=== PATIENT | female | born 1995 | race Caucasian/White ===

== ENCOUNTER 2023-01-26 21:22 | Outpatient (OUT) | payer OTHER, SELFPAY | END 2023-01-26 21:23 | LOC: LAB 21:27 | PROVIDERS: PCP Physician Assistant; Visit Provider Physician Assistant | DX: Z34.93 Encounter for supervision of normal pregnancy, unspecified, third trimester (principal) | CPT/HCPCS: 87081 ==

== ENCOUNTER 2023-02-13 16:06 | Observation (INO) | payer OTHER, SELFPAY ==
[2023-02-13] VITALS (13 sets, daily range): BP systolic 103–134; BP diastolic 63–87; PULSE 72–89; RESP 20; TEMP 25.8–36.7
[2023-02-13 16:57] LABS: Hematocrit 33.3 % (36.0-48.0); Hemoglobin 11.1 g/dL (12.0-16.0); Mean Corpuscular HGB Conc 33.3 g/dL (29.9-35.2); Mean Corpuscular Hemoglobin 28.1 pg (26.7-34.0); Mean Corpuscular Volume 84.3 fL (81.0-99.0); Mean Platelet Volume 12.3 fL (9.5-13.5); Platelet Count 208 10^3/uL (150-450); Red Blood Count 3.95 10^6/uL (4.20-5.40); Red Cell Distribution Width 13.2 % (11.0-15.0); White Blood Count 11.1 10^3/uL (4.0-11.0)
[2023-02-13 17:12] LABS: Amphetamine Screen Urine NEGATIVE (NEGATIVE); Barbiturates Screen Urine NEGATIVE (NEGATIVE); Benzodiazepines Screen Urine NEGATIVE (NEGATIVE); Buprenorphine Screen Urine NEGATIVE (NEGATIVE); Cannabinoid Screen Urine NEGATIVE (NEGATIVE); Cocaine Screen Urine NEGATIVE (NEGATIVE); Methadone Screen Urine NEGATIVE (NEGATIVE); Methamphetamines Screen Urine NEGATIVE (NEGATIVE); Opiate Screen Urine NEGATIVE (NEGATIVE); Oxycodone Screen Urine NEGATIVE (NEGATIVE); Phencyclidine Screen Urine NEGATIVE (NEGATIVE); Tricyclic Antidepressant Urine NEGATIVE (NEGATIVE)
[2023-02-13] MEDS: DINOPROSTONE 10 MG VAG INSERT.ER VAGINAL (18:37)
--- NOTE | 2023-02-13 19:39 | W.PC.ACHO ---
Registration Status: ADM IN Primary Language: Preferred Language: Report given to Henry CASEY at 1920 Active Medications Generic Name Dose Route Start Last Admin Trade Name Radha PRN Reason Stop Dose Admin Carboprost Tromethamine 250 mcg 02/13/23 16:23 Carboprost Tromethamine 250 Mcg/Ml 1 Ml Vial IM Q15M PRN Bleeding Sodium Chloride 1,000 mls @ 125 mls/hr 02/13/23 16:30 Sodium Chloride 0.9% 1,000 Ml IV .Q8H YURY Oxytocin 10 unit/ Sodium 501 mls @ 6.012 mls/hr 02/13/23 16:30 Chloride IV Q24H YURY 2 MILLIUNIT/MIN Lidocaine 5 ml 02/13/23 16:23 Lidocaine Viscous 2% 15 Ml Topical Solution TOPICAL DIRECTED PRN Pain Lidocaine 1 ml 02/13/23 16:23 Lidocaine Hcl 1% 200 Mg/20 Ml Mdv INJ DIRECTED PRN Pain Methylergonovine Maleate 0.2 mg 02/13/23 16:23 Methylergonovine Maleate 0.2 Mg Tablet PO Q4H PRN Uterine Contractility/Contract Methylergonovine Maleate 0.2 mg 02/13/23 16:23 Methylergonovine Maleate 0.2 Mg/Ml Ampule IM ONCE PRN Uterine Contractility/Contract Misoprostol 600 mcg 02/13/23 16:23 Misoprostol 100 Mcg Tablet PO ONCE PRN Uterine Bleeding Misoprostol 800 mcg 02/13/23 16:23 Misoprostol 100 Mcg Tablet SL ONCE PRN Uterine Bleeding Misoprostol 1,000 mcg 02/13/23 16:23 Misoprostol 100 Mcg Tablet MS ONCE PRN Uterine Bleeding Nalbuphine HCl 10 mg 02/13/23 16:23 Nalbuphine Hcl 10 Mg/Ml Ampule IV Q3H PRN Pain Ondansetron HCl 4 mg 02/13/23 16:23 Ondansetron Pf 4 Mg/2 Ml Vial IV Q6H PRN Nausea And Vomiting Ondansetron HCl 4 mg 02/13/23 16:23 Ondansetron 4 Mg Rapdis Tablet SL Q6H PRN Nausea And Vomiting Oxytocin 10 unit 02/13/23 16:23 Oxytocin 100 Unit/10 Ml Vial IM ONCE PRN Uterine Bleeding Zolpidem Tartrate 10 mg 02/13/23 17:41 Zolpidem Tartrate 10 Mg Tablet PO BEDTIME PRN Anxiety Diet Category Date Time Status Regular Consistency Diet Diet 02/13/23 Dinner Active Regular Consistency Diet Diet 02/14/23 Breakfast Active IV Insertion/Site Date of IV Line Insertion [20g 02/13/23 right Hand] IV Insertion Time [20g right 17:15 Hand]
--- NOTE | 2023-02-14 12:35 | P.DS_ITS ---
DS: Providers Provider Date of admission: 02/13/23 16:06 Primary care physician: CHANNING ELAINE Admitting clinician: Sukhwinder Garcia Attending physician on admission: Sukhwinder Garcia Attending physician on discharge: Sukhwinder Garcia Discharging clinician: Sukhwinder Garcia Anticipated date of discharge: 02/13/23 DS: Diagnosis Discharge Diagnosis (1) Third trimester : Plan Patient was scheduled for elective IOL and decided to not stay for induction and be discharged to home and wait for spontaneous labor. OB - DS: Summary Time Spent with Patient Time attestation: Total time spent providing and/or coordinating discharge services: Time spent: less than 30 minutes Exam Constitutional Vital Signs - 24 hr 02/13/23 16:57 02/13/23 18:59 02/13/23 19:14 Temperature Pulse Rate 81 78 81 Pulse Rate [Right Radial] Respiratory Rate Blood Pressure 118/63 116/71 103/67 Oxygen Delivery Method 02/13/23 19:36 02/13/23 19:40 02/13/23 19:44 Temperature Pulse Rate 80 85 85 Pulse Rate [Right Radial] Respiratory Rate Blood Pressure 132/72 H 131/75 H 134/83 H Oxygen Delivery Method 02/13/23 19:51 02/13/23 19:51 02/13/23 19:59 Temperature 78.4 F L 96.1 F L Pulse Rate 75 Pulse Rate [Right Radial] Respiratory Rate Blood Pressure 121/76 H Oxygen Delivery Method 02/13/23 20:15 02/13/23 20:30 02/13/23 22:21 Temperature Pulse Rate 72 72 81 Pulse Rate [Right Radial] Respiratory Rate Blood Pressure 116/75 126/69 H 129/87 H Oxygen Delivery Method 02/13/23 19:53 02/13/23 20:29 Temperature 98.1 F Pulse Rate Pulse Rate [Right Radial] 89 Respiratory Rate 20 Blood Pressure Oxygen Delivery Method Room Air Room Air DS: Data Data Completed and Pending Labs on day of discharge: Labs from last 24 hours 02/13/23 02/13/23 16:51 16:30 WBC 11.1 H RBC 3.95 L Hgb 11.1 L Hct 33.3 L MCV 84.3 MCH 28.1 MCHC 33.3 RDW 13.2 Plt Count 208 MPV 12.3 Urine Opiates Screen Negative Ur Buprenorphine Scrn Negative Ur Oxycodone Screen Negative Urine Methadone Screen Negative Ur Propoxyphene Screen Negative Ur Barbiturates Screen Negative U Tricyclic Antidepress Negative Ur Phencyclidine Scrn Negative Ur Amphetamines Screen Negative U Methamphetamines Scrn Negative U Benzodiazepines Scrn Negative Urine Cocaine Screen Negative U Cannabinoids Screen Negative Blood Type A Positive Antibody Screen Negative Discharge Plan Discharge Disposition: Home, Self-Care Condition: Good Assessment: Patient assessment WNL. Plan of Treatment: Patient to return to [facility] on 02/17 at 1600 for NST/BPP d/t postdates. Patient to call office of Dr. Garcia to schedule follow-up for Thursday 02/22. Discharge Medications: No Action No Known Home Medications Activity: resume usual activities as tolerated Diet: regular diet Print Language: Setswana Forms: Portal Instructions Follow Up Appointments: Patient to call 02/17 to schedule follow-up for 02/22 Discharge location: Home self-care
== END 2023-02-13 22:35 | disposition home or self-care (01) ==
PROVIDERS: Admitting Provider Obstetrics & Gynecology; PCP Nurse Practitioner Family; Visit Provider Obstetrics & Gynecology
DX: Z34.93 Encounter for supervision of normal pregnancy, unspecified, third trimester (principal); Z3A.00 Weeks of gestation of pregnancy not specified
CPT/HCPCS: 36415; 80307; 85027; 86850; 86900; 86901; G0378; G0379

== ENCOUNTER 2023-02-24 04:47 | Inpatient (IN) | payer OTHER, SELFPAY ==
[2023-02-24] VITALS (40 sets, daily range): BP systolic 110–145; BP diastolic 56–88; PULSE 59–91; RESP 20; TEMP 36.7–37
[2023-02-24 05:30] LABS: Hematocrit 34.6 % (36.0-48.0); Hemoglobin 11.4 g/dL (12.0-16.0); Mean Corpuscular HGB Conc 32.9 g/dL (29.9-35.2); Mean Corpuscular Hemoglobin 27.6 pg (26.7-34.0); Mean Corpuscular Volume 83.8 fL (81.0-99.0); Mean Platelet Volume 12.2 fL (9.5-13.5); Platelet Count 182 10^3/uL (150-450); Red Blood Count 4.13 10^6/uL (4.20-5.40); Red Cell Distribution Width 13.2 % (11.0-15.0); White Blood Count 11.1 10^3/uL (4.0-11.0)
[2023-02-24 05:59] LABS: Amphetamine Screen Urine NEGATIVE (NEGATIVE); Barbiturates Screen Urine NEGATIVE (NEGATIVE); Benzodiazepines Screen Urine NEGATIVE (NEGATIVE); Cannabinoid Screen Urine NEGATIVE (NEGATIVE); Cocaine Screen Urine NEGATIVE (NEGATIVE); Methadone Screen Urine NEGATIVE (NEGATIVE); Methamphetamines Screen Urine NEGATIVE (NEGATIVE); Opiate Screen Urine NEGATIVE (NEGATIVE); Oxycodone Screen Urine NEGATIVE (NEGATIVE); Phencyclidine Screen Urine NEGATIVE (NEGATIVE); Tricyclic Antidepressant Urine NEGATIVE (NEGATIVE)
[2023-02-24 06:00] LABS: Buprenorphine Screen Urine NEGATIVE (NEGATIVE)
[2023-02-24] MEDS: 0.9 % SODIUM CHLORIDE 1,000 ML 1000 ML IV (06:32)
[2023-02-24] MEDS: OXYTOCIN 10 UNIT in 0.9 % SODIUM CHLORIDE 500 ML 6.012 UNIT IV (06:45)
[2023-02-24] MEDS: ROPIVACAINE HCL/PF 400 MG/200 ML PREMIX 6 MG EPIDURAL (11:31)
[2023-02-24] MEDS: 0.9 % SODIUM CHLORIDE 1,000 ML 125 ML IV (11:32)
[2023-02-24] MEDS: FENTANYL CITRATE/PF 100 MCG/2 ML VIAL EPIDURAL (13:26)
--- NOTE | 2023-02-24 13:55 | PM.OBPRCVD ---
Procedure Intrapartal events: None Induction method: per pitocin protocol Delivery augmentation: rupture of membranes and pitocin Delivery monitor: external FHT and external uterine Route of delivery: Episiotomy Description: none Laceration description: none Estimated blood loss (mL): 200 Anesthesia type: None Disposition: floor Infant Delivery date: 02/24/23 Gender: male presentation: vertex Placental delivery description: Spontaneous cord description: 3 Vessels and Clamped/Cut Labor State Duration Total Length of Latency: 3 hours and 52 minutes
[2023-02-24] MEDS: IBUPROFEN 600 MG TABLET PO (14:43)
--- NOTE | 2023-02-24 19:13 | W.PC.ACHO ---
Registration Status: ADM IN Primary Language: Angolan Preferred Language: Angolan Report given to Sangeetha Macias RN. Care relinquished. Active Medications Generic Name Dose Route Start Last Admin Trade Name Radha PRN Reason Stop Dose Admin Acetaminophen 650 mg 02/24/23 13:51 Acetaminophen 325 Mg Tablet PO Q6H PRN Mild Pain Al Hydroxide/Mg Hydroxide 2,400 mg 02/24/23 13:51 Magnesium Hydroxide 2,400 Mg/10 Ml Oral.Susp PO Q6H PRN Dyspepsia Benzocaine/Menthol 1 applic 02/24/23 14:00 Benzocaine/Menthol 85 Gram Bottle TOPICAL ONCE PRN Pain Carboprost Tromethamine 250 mcg 02/24/23 04:50 Carboprost Tromethamine 250 Mcg/Ml 1 Ml Vial IM 02/25/23 14:00 Q15M PRN Bleeding Docusate Sodium 100 mg 02/25/23 09:00 Docusate Sodium 100 Mg Capsule PO BID YURY Sodium Chloride 1,000 mls @ 125 mls/hr 02/24/23 05:00 02/24/23 11:32 Sodium Chloride 0.9% 1,000 Ml IV 125 mls/hr .Q8H YURY Administration Ropivacaine/Sodium Chloride 400 mg in 200 mls @ 6 mls/hr 02/24/23 07:15 02/24/23 11:31 Naropin 0.2% 400 Mg/200 Ml Bag EPIDURAL 6 mls/hr Q24H YURY 6 mls/hr Administration Oxytocin 20 unit/ Sodium 1,002 mls @ 125 mls/hr 02/24/23 14:00 Chloride IV 02/24/23 21:59 Q8H YURY Ibuprofen 600 mg 02/24/23 13:51 02/24/23 14:43 Ibuprofen 600 Mg Tablet PO 600 mg Q6H PRN Administration Moderate Pain Lidocaine 5 ml 02/24/23 07:13 Lidocaine Hcl 2% Pf 100 Mg/5 Ml Vial INJ Q1H PRN Pain Methylergonovine Maleate 0.2 mg 02/24/23 04:50 Methylergonovine Maleate 0.2 Mg Tablet PO 02/25/23 14:00 Q4H PRN Uterine Contractility/Contract Methylergonovine Maleate 0.2 mg 02/24/23 04:50 Methylergonovine Maleate 0.2 Mg/Ml Ampule IM 02/25/23 14:00 ONCE PRN Uterine Contractility/Contract Misoprostol 600 mcg 02/24/23 04:50 Misoprostol 100 Mcg Tablet PO ONCE PRN Uterine Bleeding Misoprostol 800 mcg 02/24/23 04:50 Misoprostol 100 Mcg Tablet SL ONCE PRN Uterine Bleeding Misoprostol 1,000 mcg 02/24/23 04:50 Misoprostol 100 Mcg Tablet NH ONCE PRN Uterine Bleeding Naloxone HCl 0.4 mg 02/24/23 07:13 Naloxone Hcl 0.4 Mg/Ml Vial IV ONCE PRN Pain Ondansetron HCl 4 mg 02/24/23 04:50 Ondansetron Pf 4 Mg/2 Ml Vial IV Q6H PRN Nausea And Vomiting Ondansetron HCl 4 mg 02/24/23 04:50 Ondansetron 4 Mg Rapdis Tablet SL Q6H PRN Nausea And Vomiting Senna 17.2 mg 02/24/23 20:00 Sennosides 8.6 Mg Tablet PO QHS PRN Constipation Simethicone 80 mg 02/24/23 13:51 Simethicone 80 Mg Tab.Chew PO QID PRN Abdominal Distention Temazepam 15 mg 02/24/23 20:00 Temazepam 15 Mg Capsule PO BEDTIME PRN Sleep Witch Sonja/Glycerin 1 each 02/24/23 14:00 Glycerin/Witch Sonja 1 Each Jar TOPICAL ONCE PRN Pain Diet Category Date Time Status Regular Consistency Diet Diet 02/24/23 Dinner Active Consults Category Date Time Status Consult to Automotive Sales Executive Routine Cons 02/24/23 Ordered IV Insertion/Site Date of IV Line Insertion [20g 02/24/23 right Hand] IV Insertion Time [20g right 05:12 Hand] Neurology Patient orientation (short person,place,time,situation list) Mary coma scale total score 15 Respiratory Oxygen Delivery Method Room Air Oxygen Delivery Method Room Air Cardiology Heart Sounds Strong,Regular Bowels Date of Last Bowel Movement [ 02/24/23 All Quadrants] Date of Last Bowel Movement [ 02/24/23 All Quadrants] Date of Last Bowel Movement [ 02/24/23 All Quadrants] Date of Last Bowel Movement [ 02/24/23 All Quadrants] Date of Last Bowel Movement [ 02/24/23 All Quadrants] Date of Last Bowel Movement [ 02/24/23 All Quadrants] Date of Last Bowel Movement [ 02/24/23 All Quadrants] Date of Last Bowel Movement [ 02/24/23 All Quadrants] Renal Bladder Pattern Continent Catheter Date Urinary Catheter Removed 02/24/23 Date Urinary Catheter Removed 02/24/23
[2023-02-25 00:10] VITALS: BP 116/60; PULSE 75; RESP 18
[2023-02-25] MEDS: IBUPROFEN 600 MG TABLET PO (00:19)
[2023-02-25 05:59] LABS: Basophils Percent Auto 0.2 % (0.2-2.0); Eosinophils Absolute Auto 0.1 10^3/uL (0.0-0.7); Eosinophils Percent Auto 0.5 % (0.9-7.0); Hematocrit 30.3 % (36.0-48.0); Hemoglobin 9.8 g/dL (12.0-16.0); Immature Granulocytes Abs Auto 0.05 10^3/uL (0.00-0.03); Immature Granulocytes Pct Auto 0.5 % (0.0-0.5); Lymphocytes Absolute Auto 2.4 10^3/uL (1.2-3.8); Lymphocytes Percent Auto 25.2 % (20.5-60.0); Mean Corpuscular HGB Conc 32.3 g/dL (29.9-35.2); Mean Corpuscular Volume 86.6 fL (81.0-99.0); Mean Platelet Volume 11.9 fL (9.5-13.5); Monocytes Absolute Auto 0.7 10^3/uL (0.3-0.8); Monocytes Percent Auto 7.6 % (1.7-12.0); Neutrophils Absolute Auto 6.4 10^3/uL (1.4-6.5); Platelet Count 185 10^3/uL (150-450); Red Cell Distribution Width 13.4 % (11.0-15.0); White Blood Count 9.7 10^3/uL (4.0-11.0)
[2023-02-25 07:50] VITALS: BP 118/69; PULSE 64; RESP 16; TEMP 36.7
--- NOTE | 2023-02-25 09:01 | P.OBPN_ITS ---
OB - PN: Subj Subjective Patient comments: no complaints [place] status: doing well Exam Constitutional Vital Signs, click to edit/add: Last Vital Signs Temp 98.0 F 02/24/23 11:34 Pulse 64 02/25/23 07:50 Resp 18 02/25/23 00:10 BP 118/69 02/25/23 07:50 O2 Del Method Room Air 02/25/23 00:10 Documenting provider has reviewed patient's vital signs: yes Common normals: no apparent distress Respiratory Common normals: normal respiratory effort and clear to auscultation bilaterally Cardio Common normals: regular rate and regular rhythm GI Common normals: Normal to inspection, nondistended, normoactive bowel sounds present Extremity Common normals: no clubbing, cyanosis or edema and no calf tenderness Results Labs Labs: Short CBC 02/25/23 Range/Units 05:43 WBC 9.7 (4.0-11.0) 10^3/uL Hgb 9.8 L (12.0-16.0) g/dL Hct 30.3 L (36.0-48.0) % Plt Count 185 (150-450) 10^3/uL OB - PN: A/P Plan - Vaginal Delivery day: 1 Plan: routine care, discharge home and follow up 6 weeks Time Spent with Patient Time: Total time spent is greater than 50% in coordination of care (as documented) at patient's floor/unit and/or counseling patient: Total time spent with greater than 50% in coordination of care (as documented) at patient's floor/unit and/or counseling patient: less than 15 minutes
--- NOTE | 2023-02-25 16:07 | SWNOTE1 ---
SW was consulted due to mental health, SW spoke with nursing and pt does struggle with severe anxiety. SW met with pt to discuss any needs. Pt does have 2 other children who are 4 & 5. Pt also has her ex-fiance living in the home as well. She does voice it is a good relationship and they co-parent well together. Pt is not sure who the father is. It is between her ex and another person. She did inquire about paternity testing, SW recommended health dept. Pt is also looking into other options. Pt did voice she has other support, not many but the people who are her support, she does feel they are good support. Pt did talk about having anxiety. She voiced she does not take anything out on her kids and it is all related to herself. She did try meds one time but did not like the effect. Pt is self aware and stated she learned several coping skills from counseling. Pt goes to [facility] counseling in [place], she has not been in 6 months, but does plan on making an appointment soon. Pt does have everything she needs at home for baby; crib, car seat, clothing, etc. At this time pt does not voice any concerns and does not feel she needs any other resources.
== END 2023-02-25 16:30 | disposition home or self-care (01) | DRG 560 ==
PROVIDERS: Admitting Provider Obstetrics & Gynecology; PCP Nurse Practitioner Family; Visit Provider Obstetrics & Gynecology
DX: O48.0 Post-term pregnancy (principal); Z3A.41 41 weeks gestation of pregnancy; O99.344 Other mental disorders complicating childbirth; F41.0 Panic disorder [episodic paroxysmal anxiety]; Z37.0 Single live birth; O26.843 Uterine size-date discrepancy, third trimester; Z82.49 Family history of ischemic heart disease and other diseases of the circulatory system; Z83.3 Family history of diabetes mellitus; Z80.9 Family history of malignant neoplasm, unspecified
CPT/HCPCS: 36415; 59050; 59410; 80307; 85025; 85027; 86850; 86900; 86901; 96374; 96376

== ENCOUNTER 2023-02-26 15:55 | Emergency (ER) | payer OTHER, SELFPAY ==
[2023-02-26 16:40] VITALS: BP 142/90; PULSE 85; RESP 20; TEMP 36.7; BMI 39.4
--- NOTE | 2023-02-26 17:38 | ED_ITS ---
HPI - General Adult General Chief complaint: Headache Stated complaint: HEADACHE Time Seen by Provider: 02/26/23 17:38 Source: family Mode of arrival: walk-in Limitations: no limitations History of Present Illness HPI narrative: Patient presents to emergency department complaining of a headache. Patient states she is status post 2 days vaginal delivery at 41 weeks. The patient is patient of Dr. Garcia. She is having to cephalgia and scotoma. She states she's had scotoma before she even had a headache that she's had it before. She denies any trauma. She took her blood pressure and it was 140 so she called the labor and delivery and was told to come to the emergency department. Patient denies any preeclampsia with this but she did have hypertension with her 1st child. She is . She states she has some nausea she has not taking anything at home for pain. She does not like taking pain medication. She states she has her normal vaginal bleeding from the delivery denies any fever, or chills. She denies any abdominal pain or cramping. She denies any flank pain, hematuria, dysuria. She denies any diarrhea, constipation. She denies any difficulty with speech, paresthesias, or focal weakness. She denies any chest pain, or shortness of breath. Anxiety and is feeling anxious. Related Data Home Medications Medication Instructions Recorded Confirmed No Known Home Medications 02/13/23 02/25/23 Allergies Allergy/AdvReac Type Severity Reaction Status Date / Time escitalopram [From Lexapro] Allergy Intermediate Anxiety Verified 02/13/23 17:46 Review of Systems ROS Status of ROS 10 or more systems reviewed and unremarkable except as noted in history and below [facility] Medical History (Updated 02/26/23 @ 19:21 by Deepthi Presley MD) Family History (Updated 02/24/23 @ 05:44 by Marcia Packer RN) Mother Family history of diabetes mellitus Family history of hypertension Sister Family history of cancer Social History Smoking status: Never smoker Exam Narrative Exam Narrative: Nurses notes and vital signs reviewed and patient is not hypoxic. General: Nontoxic, Well-appearing and in no apparent distress. Skin: Warm, dry, no pallor noted. No Rash Head: Normocephalic, atraumatic. Neck: Supple, non-tender. Eye: Pupils are equal, round and EOMI. No scleral icterus. Ears, Nose, Mouth, and Throat: TM clear, no posterior oropharynx erythema or nasal mucosal hypertrophy, uvula is mid-line Oral mucosa is moist Cardiovascular: Regular Rate and Rhythm without murmur, gallop or rub. Respiratory: No accessory muscle use or respiratory distress. Lungs are clear to auscultation, no wheezing, rales or rhonchi Chest Wall: no tenderness Back: No midline thoracic or lumbar vertebral tenderness. No CVA tenderness Musculoskeletal: normal ROM, no calf or popliteal tenderness, no lower extremity edema/swelling GI: Abdomen is soft, non-distended. Normal bowel sounds. No masses appreciated. No tenderness to palpation. No rebound, guarding, or rigidity noted. Neurological: A&O x4. No cranial nerve dysfunction observed. No truncal ataxia. Moves all extremities. Sensation intact. Psychiatric: Cooperative and interactive.anxious Constitutional Vital Signs, click to edit/add: Last Vital Signs Temp 98.1 F 02/26/23 16:40 Pulse 81 02/26/23 18:28 Resp 26 H 02/26/23 18:28 BP 122/78 H 02/26/23 18:34 O2 Del Method Room Air 02/26/23 18:34 Course Vital Signs Vital signs: Vital Signs Temperature 98.1 F 02/26/23 16:40 Pulse Rate 85 02/26/23 16:40 Respiratory Rate 20 02/26/23 16:40 Blood Pressure 142/90 H 02/26/23 16:40 Temperature 98.1 F 02/26/23 16:40 Pulse Rate 81 02/26/23 18:28 Respiratory Rate 26 H 02/26/23 18:28 Blood Pressure 122/78 H 02/26/23 18:34 Oxygen Delivery Method Room Air 02/26/23 18:34 Medical Decision Making MDM Narrative Medical decision making narrative: IV was established. The patient's blood pressure is 142/90. Patient does not have any focal neurologic deficit. CT scan of the brain was done. Beta ramiro was ordered however the patient was given IV fluids she did not like take Toradol or any IV medications initially she did agree to finally get 4 to to see if that would help with her cephalgia and left pressure. Patient's blood pressure improved to 122/78. Her headache has improved. While awaiting blood work. Evaluation, disposition. Patient's headache improved dramatically with Toradol and IV fluids. She states she has Tylenol and Motrin at home and she would like to take. She declined any Tylenol in the emergency department. The patient had a CT scan of the brain which was unremarkable. Her blood pressure improved without any antihypertensives. Patient was discussed with Dr. Brewer regional sales coordinator for [employer] who advised the patient to be discharged and follow up with primary care doctor Dr. Garcia tomorrow. If she develops any more headaches which did not resolve with Tylenol and Motrin she is to return to the emergency department. At this time the patient is without objective evidence of an acute process requiring hospitalization or inpatient management. The patient has remained hemodynamically stable. No additional indication for emergent studies at this time. I answered all questions. Discussed discharge instructions including standard anticipatory guidance and what should prompt a return to the emergency department, including if they get worse are not getting better or develops any new or concerning symptoms. I've given them specific time frame in which to follow-up, and who to follow-up with. The patient demonstrates understanding. Patient is nontoxic and stable for discharge with outpatient follow-up. This note was created with the assistance of a speech recognition program. Although the intention is to generate documents that actually reflects the content of the visit, no guarantees can be provided that every mistake has been identified and corrected by editing. Medical Records Medical records reviewed: Yes I reviewed the patient's medical records Lab Data Lab results reviewed: Yes I reviewed the patient's lab results Labs: Lab Results 02/26/23 Range/Units 17:50 WBC 11.6 H (4.0-11.0) 10^3/uL RBC 4.10 L (4.20-5.40) 10^6/uL Hgb 11.4 L (12.0-16.0) g/dL Hct 35.0 L (36.0-48.0) % MCV 85.4 (81.0-99.0) fL MCH 27.8 (26.7-34.0) pg MCHC 32.6 (29.9-35.2) g/dL RDW 13.2 (11.0-15.0) % Plt Count 251 (150-450) 10^3/uL MPV 11.7 (9.5-13.5) fL Neut % (Auto) 76.1 H (43.0-75.0) % Lymph % (Auto) 15.4 L (20.5-60.0) % [place] % (Auto) 6.1 (1.7-12.0) % Eos % (Auto) 1.6 (0.9-7.0) % Baso % (Auto) 0.4 (0.2-2.0) % Neut # (Auto) 8.8 H (1.4-6.5) 10^3/uL Lymph # (Auto) 1.8 (1.2-3.8) 10^3/uL [place] # (Auto) 0.7 (0.3-0.8) 10^3/uL Eos # (Auto) 0.2 (0.0-0.7) 10^3/uL Baso # (Auto) 0.1 (0.0-0.1) 10^3/uL Abs Immat Gran (auto) 0.05 H (0.00-0.03) 10^3/uL Imm/Tot Granulo (auto) 0.4 (0.0-0.5) % Sodium 138 (136-145) mmol/L Potassium 3.6 (3.5-5.1) mmol/L Chloride 104 (98-107) mmol/L Carbon Dioxide 26.0 (21.0-32.0) mmol/L Anion Gap 11.6 BUN 9.0 (7.0-18.0) mg/dL Creatinine 0.73 (0.55-1.02) mg/dL Est GFR ( Amer) >60 (>=60) Est GFR (Non-Af Amer) >60 (>=60) BUN/Creatinine Ratio 12.3 Glucose 80 (74-106) mg/dL Lactate 0.7 (0.4-2.0) mmol/L Calcium 9.1 (8.5-10.1) mg/dL Total Bilirubin 0.2 (0.2-1.0) mg/dL AST 14 L (15-37) U/L ALT 16 (14-59) U/L Alkaline Phosphatase 129 H (46-116) U/L Total Protein 7.1 (6.4-8.2) g/dL Albumin 3.1 L (3.4-5.0) g/dL Globulin 4.0 g/dL Albumin/Globulin Ratio 0.8 Discharge Plan Discharge Chief Complaint: Headache Clinical Impression: Headache Patient Disposition: Home, Self-Care Time of Disposition Decision: 19:19 Condition: Good Mode of Transportation: Private Vehicle Prescriptions / Home Meds: No Action No Known Home Medications Instructions: Acute Headache (ED) Additional Instructions: Take Tylenol and Motrin as needed for pain. Follow-up with your primary care doctor and [employer] in the morning. Return to the emergency department with any problems or concerns as discussed. Stand Alone Forms: Portal Instructions Referrals: CHANNING ELAINE [Primary Care Provider] - 1 week
[2023-02-26 17:51] VITALS: BP 141/86; PULSE 81; RESP 30
--- NOTE | 2023-02-26 17:52 | ECG_ITS ---
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
[2023-02-26] MEDS: 0.9 % SODIUM CHLORIDE 1,000 ML 999 ML IV (17:55)
--- NOTE | 2023-02-26 18:08 | CT_ITS ---
The [address] [address] Patient Name: MICHAEL BRAXTON MRN: [facility]:[id number] date: 1995 Sex: F Assigned Patient Location: ER Current Patient Location: Accession/Order Number: [id number] Exam Date: 02/26/2023 18:02 Report Date: 02/26/2023 20:44 At the request of: MEERA PRESLEY Procedure: CT stroke head/brain wo con EXAMINATION: CT stroke head/brain wo con HISTORY: headache htn COMPARISON: No relevant comparison available. TECHNIQUE: Axial CT images were obtained without IV contrast. Dose reduction techniques were achieved by using automated exposure control and/or adjustment of mA and/or kV according to patient size and/or use of iterative reconstruction technique. FINDINGS: BRAIN: No edema, hemorrhage, mass, acute infarction, or inappropriate atrophy. CSF SPACES: No hydrocephalus, subarachnoid hemorrhage, or mass. Appropriate for age. SKULL: No fracture, mass, or other significant visible lesion. SINUSES: No significant mucosal thickening or fluid on the limited views. ORBITS: No appreciable abnormality on the limited views. OTHER: Negative CT/CT stroke head/brain wo con IMPRESSION: 1. Normal CT appearance of the brain. Preliminary findings were called to [place] in the emergency department at time of imaging to be relayed to Dr. Presley. Electronically authenticated by: CHARLIE DE LA O Date: 02/26/2023 20:44
[2023-02-26 18:19] LABS: Basophils Absolute Auto 0.1 10^3/uL (0.0-0.1); Basophils Percent Auto 0.4 % (0.2-2.0); Eosinophils Absolute Auto 0.2 10^3/uL (0.0-0.7); Eosinophils Percent Auto 1.6 % (0.9-7.0); Hemoglobin 11.4 g/dL (12.0-16.0); Immature Granulocytes Abs Auto 0.05 10^3/uL (0.00-0.03); Immature Granulocytes Pct Auto 0.4 % (0.0-0.5); Lymphocytes Absolute Auto 1.8 10^3/uL (1.2-3.8); Lymphocytes Percent Auto 15.4 % (20.5-60.0); Mean Corpuscular HGB Conc 32.6 g/dL (29.9-35.2); Mean Corpuscular Hemoglobin 27.8 pg (26.7-34.0); Mean Corpuscular Volume 85.4 fL (81.0-99.0); Mean Platelet Volume 11.7 fL (9.5-13.5); Monocytes Absolute Auto 0.7 10^3/uL (0.3-0.8); Monocytes Percent Auto 6.1 % (1.7-12.0); Neutrophils Absolute Auto 8.8 10^3/uL (1.4-6.5); Neutrophils Percent Auto 76.1 % (43.0-75.0); Platelet Count 251 10^3/uL (150-450); Red Cell Distribution Width 13.2 % (11.0-15.0); White Blood Count 11.6 10^3/uL (4.0-11.0)
[2023-02-26 18:28] VITALS: BP 150/104; PULSE 81; RESP 26
[2023-02-26] MEDS: KETOROLAC TROMETHAMINE 30 MG/ML VIAL IVP (18:32)
[2023-02-26 18:34] VITALS: BP 122/78; PULSE 86
[2023-02-26 18:39] LABS: Alanine Aminotransferase 16 U/L (14-59); Albumin Globulin Ratio 0.8; Albumin Level 3.1 g/dL (3.4-5.0); Alkaline Phosphatase 129 U/L (46-116); Anion Gap 11.6; Aspartate Amino Transferase 14 U/L (15-37); BUN Creatinine Ratio 12.3; Bilirubin Total 0.2 mg/dL (0.2-1.0); Calcium 9.1 mg/dL (8.5-10.1); Chloride 104 mmol/L (98-107); Estimated GFR (African America >60 (>=60); Estimated GFR (Non-African Ame >60 (>=60); Glucose 80 mg/dL (74-106); Potassium 3.6 mmol/L (3.5-5.1); Sodium 138 mmol/L (136-145); Total Protein 7.1 g/dL (6.4-8.2)
[2023-02-26 18:40] LABS: Lactate/Lactic Acid 0.7 mmol/L (0.4-2.0)
--- NOTE | 2023-02-26 18:41 | PC.NURSE ---
02/26/23 1840 pt manual bp obtained and updated dr esparza. Luigi Baig RN
--- NOTE | 2023-02-26 19:25 | ED_ITS ---
HPI - General Adult General Chief complaint: Headache Stated complaint: HEADACHE Time Seen by Provider: 02/26/23 17:38 Source: family Mode of arrival: walk-in Limitations: no limitations Related Data Home Medications Medication Instructions Recorded Confirmed No Known Home Medications 02/13/23 02/25/23 Allergies Allergy/AdvReac Type Severity Reaction Status Date / Time escitalopram [From Lexapro] Allergy Intermediate Anxiety Verified 02/13/23 17:46 Review of Systems ROS Status of ROS 10 or more systems reviewed and unremarkable except as noted in history and below [facility] Medical History (Updated 02/26/23 @ 19:21 by Deepthi Presley MD) Family History (Updated 02/24/23 @ 05:44 by Marcia Packer RN) Mother Family history of diabetes mellitus Family history of hypertension Sister Family history of cancer Social History Smoking status: Never smoker Exam Narrative Exam Narrative: Nurses notes and vital signs reviewed and patient is not hypoxic. General: Nontoxic, Well-appearing and in no apparent distress. Skin: Warm, dry, no pallor noted. No Rash Head: Normocephalic, atraumatic. Neck: Supple, non-tender. Eye: Pupils are equal, round and EOMI. No scleral icterus. Ears, Nose, Mouth, and Throat: TM clear, no posterior oropharynx erythema or nasal mucosal hypertrophy, uvula is mid-line Oral mucosa is moist Cardiovascular: Regular Rate and Rhythm without murmur, gallop or rub. Respiratory: No accessory muscle use or respiratory distress. Lungs are clear to auscultation, no wheezing, rales or rhonchi Chest Wall: no tenderness Back: No midline thoracic or lumbar vertebral tenderness. No CVA tenderness Musculoskeletal: normal ROM, no calf or popliteal tenderness, no lower extremity edema/swelling GI: Abdomen is soft, non-distended. Normal bowel sounds. No masses appreciated. No tenderness to palpation. No rebound, guarding, or rigidity noted. Neurological: A&O x4. No cranial nerve dysfunction observed. No truncal ataxia. Moves all extremities. Sensation intact. Psychiatric: Cooperative and interactive. Normal mood and affect. Constitutional Vital Signs, click to edit/add: Last Vital Signs Temp 98.1 F 02/26/23 16:40 Pulse 74 02/26/23 19:28 Resp 18 02/26/23 19:28 BP 138/78 H 02/26/23 19:28 Pulse Ox 98 02/26/23 19:28 O2 Del Method Room Air 02/26/23 19:28 Course Vital Signs Vital signs: Vital Signs Temperature 98.1 F 02/26/23 16:40 Pulse Rate 85 02/26/23 16:40 Respiratory Rate 20 02/26/23 16:40 Blood Pressure 142/90 H 02/26/23 16:40 Temperature 98.1 F 02/26/23 16:40 Pulse Rate 74 02/26/23 19:28 Respiratory Rate 18 02/26/23 19:28 Blood Pressure 138/78 H 02/26/23 19:28 Pulse Oximetry 98 02/26/23 19:28 Oxygen Delivery Method Room Air 02/26/23 19:28 Medical Decision Making Lab Data Labs: Lab Results 02/26/23 Range/Units 17:50 WBC 11.6 H (4.0-11.0) 10^3/uL RBC 4.10 L (4.20-5.40) 10^6/uL Hgb 11.4 L (12.0-16.0) g/dL Hct 35.0 L (36.0-48.0) % MCV 85.4 (81.0-99.0) fL MCH 27.8 (26.7-34.0) pg MCHC 32.6 (29.9-35.2) g/dL RDW 13.2 (11.0-15.0) % Plt Count 251 (150-450) 10^3/uL MPV 11.7 (9.5-13.5) fL Neut % (Auto) 76.1 H (43.0-75.0) % Lymph % (Auto) 15.4 L (20.5-60.0) % [place] % (Auto) 6.1 (1.7-12.0) % Eos % (Auto) 1.6 (0.9-7.0) % Baso % (Auto) 0.4 (0.2-2.0) % Neut # (Auto) 8.8 H (1.4-6.5) 10^3/uL Lymph # (Auto) 1.8 (1.2-3.8) 10^3/uL [place] # (Auto) 0.7 (0.3-0.8) 10^3/uL Eos # (Auto) 0.2 (0.0-0.7) 10^3/uL Baso # (Auto) 0.1 (0.0-0.1) 10^3/uL Abs Immat Gran (auto) 0.05 H (0.00-0.03) 10^3/uL Imm/Tot Granulo (auto) 0.4 (0.0-0.5) % Sodium 138 (136-145) mmol/L Potassium 3.6 (3.5-5.1) mmol/L Chloride 104 (98-107) mmol/L Carbon Dioxide 26.0 (21.0-32.0) mmol/L Anion Gap 11.6 BUN 9.0 (7.0-18.0) mg/dL Creatinine 0.73 (0.55-1.02) mg/dL Est GFR ( Amer) >60 (>=60) Est GFR (Non-Af Amer) >60 (>=60) BUN/Creatinine Ratio 12.3 Glucose 80 (74-106) mg/dL Lactate 0.7 (0.4-2.0) mmol/L Calcium 9.1 (8.5-10.1) mg/dL Total Bilirubin 0.2 (0.2-1.0) mg/dL AST 14 L (15-37) U/L ALT 16 (14-59) U/L Alkaline Phosphatase 129 H (46-116) U/L Total Protein 7.1 (6.4-8.2) g/dL Albumin 3.1 L (3.4-5.0) g/dL Globulin 4.0 g/dL Albumin/Globulin Ratio 0.8 Discharge Plan Discharge Chief Complaint: Headache Clinical Impression: Headache Patient Disposition: Home, Self-Care Time of Disposition Decision: 19:19 Condition: Good Mode of Transportation: Private Vehicle Prescriptions / Home Meds: No Action No Known Home Medications Instructions: Acute Headache (ED) Additional Instructions: Take Tylenol and Motrin as needed for pain. Follow-up with your primary care doctor and [facility] in the morning. Return to the emergency department with any problems or concerns as discussed. Stand Alone Forms: Portal Instructions Referrals: CHANNING ELAINE [Primary Care Provider] - 1 week Discharge Date/Time: 02/26/23 19:39
[2023-02-26 19:28] VITALS: BP 138/78; PULSE 74; RESP 18; O2SAT 98
== END 2023-02-26 19:39 | disposition home or self-care (01) ==
PROVIDERS: Emergency Provider Emergency Medicine; PCP Nurse Practitioner Family
DX: O90.9 Complication of the puerperium, unspecified (principal); R51.9 Headache, unspecified
CPT/HCPCS: 36415; 70450; 80053; 83605; 85025; 93005; 96374; 99285

== ENCOUNTER 2023-05-03 19:31 | Emergency (ER) | payer OTHER, SELFPAY ==
[2023-05-03 19:44] VITALS: BP 147/94; PULSE 80; RESP 18; TEMP 37.3; O2SAT 98; BMI 40.9
== END 2023-05-03 19:52 | disposition left against medical advice (07) ==
LOC: ER 19:52
PROVIDERS: Emergency Provider Emergency Medicine; PCP Nurse Practitioner Family
DX: Z53.21 Procedure and treatment not carried out due to patient leaving prior to being seen by health care provider (principal)

== ENCOUNTER 2023-11-15 17:57 | Emergency (ER) | payer OTHER, SELFPAY ==
[2023-11-15 18:00] VITALS: BP 154/94; PULSE 109; TEMP 37.8; O2SAT 97; BMI 42.9
[2023-11-15 18:13] VITALS: O2SAT 97
--- NOTE | 2023-11-15 18:19 | ED.URI1 ---
HPI - URI/Sore Throat General Chief Complaint: Upper Respiratory Infection Stated Complaint: Fever Swelling Throat Time Seen by Provider: 11/15/23 17:58 Source: patient Limitations: no limitations History of Present Illness HPI Narrative: Patient is a 28-year-old female who presents to the emergency department for multiple upper respiratory symptoms. She states for the last 2 weeks approximately she has had mild nasal congestion and cough. In the last 2 days she has developed low-grade fevers, swollen tonsils and sore throat. She is able to speak without difficulty. She is not concerned for . No medications taken prior to arrival. Related Data Previous Rx's ?Medication ?Instructions ?Recorded amoxicillin 500 mg capsule 500 mg PO TID 10 days #30 caps 11/15/23 [id number] 10 ml PO Q6H PRN cold symptoms 11/15/23 2 mg-30 mg-10 mg/5 mL oral syrup #200 mL (Bromfed DM) Allergies Allergy/AdvReac Type Severity Reaction Status Date / Time escitalopram [From Lexapro] Allergy Intermediate Anxiety Verified 05/03/23 19:48 Review of Systems ROS Constitutional Reports: fever; Denies: chills Ears, nose, mouth, and throat Reports: throat pain and nasal congestion Cardiovascular Denies: chest pain Respiratory Reports: cough; Denies: shortness of breath Gastrointestinal Denies: nausea or vomiting Musculoskeletal Denies: back pain Integumentary/Breast Denies: rash Neurological Denies: headache Hematologic/Lymphatic Denies: easy bruising or easy bleeding PFSH PFSH Medical History (Updated 11/15/23 @ 18:34 by MINOO Ley) Panic attacks ?F41.0 - Panic disorder [episodic paroxysmal anxiety] (ICD-10) Anxiety ?F41.9 - Anxiety disorder, unspecified (ICD-10) Surgical History (Updated 11/15/23 @ 18:10 by Jurgen Cano) No pertinent past surgical history ?Z78.9 - Other specified health status (ICD-10) Family History (Updated 02/24/23 @ 05:44 by Marcia Packer RN) Mother Family history of diabetes mellitus Family history of hypertension Sister Family history of cancer Social History Smoking status: Never smoker Exam Narrative Exam Narrative: Gen.: Awake, alert, in no distress Head: Normocephalic, atraumatic ENT: Moist mucous membranes, Uvula is midline with moderate tonsillar edema and occasional exudate. No trismus or drooling. Bilateral TMs are clear Respiratory: No respiratory distress, lungs clear bilaterally Cardio: Regular rate and rhythm Extremities: Moves extremities equally Psych: Normal mood and affect Neuro: No focal neuro deficit Skin: Warm, dry, intact Constitutional Vital Signs, click to edit/add: Last Vital Signs Temp 100.1 F 11/15/23 18:00 Pulse 109 H 11/15/23 18:00 Resp 18 11/15/23 18:00 BP 154/94 H 11/15/23 18:00 Pulse Ox 97 11/15/23 18:13 O2 Del Method Room Air 11/15/23 18:13 Course Vital Signs Vital signs: Vital Signs Temperature 100.1 F 11/15/23 18:00 Pulse Rate 109 H 11/15/23 18:00 Respiratory Rate 18 11/15/23 18:00 Blood Pressure 154/94 H 11/15/23 18:00 Pulse Oximetry 97 11/15/23 18:00 Oxygen Delivery Method Room Air 11/15/23 18:00 Temperature 100.1 F 11/15/23 18:00 Pulse Rate 109 H 11/15/23 18:00 Respiratory Rate 18 11/15/23 18:00 Blood Pressure 154/94 H 11/15/23 18:00 Pulse Oximetry 97 11/15/23 18:13 Oxygen Delivery Method Room Air 11/15/23 18:13 MDM - URI/Sore Throat MDM Narrative Medical decision making narrative: Screen is positive, patient is negative for influenza and COVID. Vital signs are stable in the ER. She was encouraged to continue Motrin and Tylenol. She declined Magic mouthwash as she does not want to take the Benadryl component. She was given Decadron in the ER with no difficulty. Airway is widely open and patent in the ER, she has no speech changes or evidence of airway compromise. She declined Bicillin injection and states she has done well with amoxicillin in the past. She was prescribed amoxicillin and Bromfed-DM for home. Follow-up with PCP and return to the ER if symptoms change or worsen Medical Records Attestation: I reviewed the patient's medical records. Lab Data Attestation: I reviewed the patient's lab results. Labs: Lab Results 11/15/23 Range/Units 18:05 Influenza Type A Ag Negative Influenza Type B Ag Negative SARS-CoV-2 Ag (CV2AG) Negative (NEGATIVE) Streptococcus Screen Positive A Discharge Plan Discharge Stand Alone Forms: Portal Instructions Chief Complaint: Upper Respiratory Infection Clinical Impression: Strep pharyngitis Patient Disposition: Home, Self-Care Time of Disposition Decision: 18:34 Condition: Good Prescriptions / Home Meds: New amoxicillin 500 mg capsule 500 mg PO TID 10 Days Qty: 30 0RF [id number] [Bromfed DM] 2-30-10 mg/5 mL syrup 10 ml PO Q6H PRN (Reason: cold symptoms) Qty: 200 0RF Print Language: German Instructions: Strep Throat (ED) Referrals: CHANNING ELAINE [Primary Care Provider] - 1 week
[2023-11-15 18:28] LABS: Influenza Virus A Antigen Negative; Influenza Virus B Antigen Negative; Internal Control Within Normal Limits; SARS-CoV-2 Ag NEGATIVE (NEGATIVE); Strep A Antigen Screen Positive
[2023-11-15] MEDS: DEXAMETHASONE SOD PHOS 10 MG/ML VIAL PO (18:38)
== END 2023-11-15 18:52 | disposition home or self-care (01) ==
PROVIDERS: Physician Assistant; Emergency Provider Emergency Medicine Emergency Medical Services; PCP Nurse Practitioner Family
DX: J02.0 Streptococcal pharyngitis (principal); Z20.822 Contact with and (suspected) exposure to COVID-19
CPT/HCPCS: 87804; 87811; 87880; 99285; J1100

== ENCOUNTER 2024-03-09 13:59 | Outpatient (OUT) | payer OTHER, SELFPAY ==
--- NOTE | 2024-03-09 14:01 | US_ITS ---
[address] [address] Patient Name: MICHAEL BRAXTON MRN: [id number] date: 1995 Sex: F Assigned Patient Location: [facility] Current Patient Location: [facility] Accession/Order Number: [id number] Exam Date: 03/09/2024 14:01 Report Date: 03/09/2024 15:19 At the request of: JONAS SMITH Procedure: US OB >= 14 weeks Fetus EXAMINATION: US OB >= 14 weeks Fetus HISTORY: MISSED MENSES COMPARISON: No relevant comparison available. TECHNIQUE: Transabdominal sonographic examination was performed for obstetrical and evaluation. FINDINGS: Number: 1 Heart Rate: 155 H.B. /min Amniotic Fluid Volume: Subjectively normal Placental Location: Anterior BIOMETRY: BPD: 3.2 cm, 16 weeks 0 days, 10% HC: 12.6 cm, 16 weeks 3 days, 12% AC: 10.8 cm, 16 weeks 5 days, 38% FL: 2.1 cm, 16 weeks 1 day, 15% EFW:155 g, 5 ounces, 13%; FL/AC: 19.1 FL/BPD: 64.4 HC/AC: 1.17 GESTATIONAL AGE: Age by EDC: 17 weeks 0 days NATALIA by EDC: 08/17/2024 Age by current US: 16 weeks 2 days NATALIA by current US: 08/22/2024 US/US OB >= 14 weeks Fetus IMPRESSION: Viable mejia intrauterine gestation measuring 16 weeks 2 days *Reference: [facility] Practice Guideline for the performance of Obstetric Ultrasound Examinations, May 16, 2007. Electronically authenticated by: PREM GUERRA Date: 03/09/2024 15:19
== END 2024-03-09 14:00 | disposition home or self-care (01) ==
LOC: NOMS 13:59
PROVIDERS: PCP Nurse Practitioner Family; Visit Provider Obstetrics & Gynecology
DX: Z34.92 Encounter for supervision of normal pregnancy, unspecified, second trimester (principal); Z3A.16 16 weeks gestation of pregnancy; N92.6 Irregular menstruation, unspecified
CPT/HCPCS: 76815

== ENCOUNTER 2024-04-11 08:48 | Outpatient (OUT) | payer OTHER, SELFPAY ==
[2024-04-11 09:12] LABS: Basophils Percent Auto 0.2 % (0.2-2.0); Eosinophils Absolute Auto 0.1 10^3/uL (0.0-0.7); Eosinophils Percent Auto 0.9 % (0.9-7.0); Hematocrit 33.8 % (36.0-48.0); Hemoglobin 11.3 g/dL (12.0-16.0); Immature Granulocytes Abs Auto 0.11 10^3/uL (0.00-0.03); Immature Granulocytes Pct Auto 0.8 % (0.0-0.5); Lymphocytes Absolute Auto 2.3 10^3/uL (1.2-3.8); Lymphocytes Percent Auto 17.5 % (20.5-60.0); Mean Corpuscular HGB Conc 33.4 g/dL (29.9-35.2); Mean Corpuscular Hemoglobin 27.2 pg (26.7-34.0); Mean Corpuscular Volume 81.3 fL (81.0-99.0); Mean Platelet Volume 10.7 fL (9.5-13.5); Monocytes Absolute Auto 0.7 10^3/uL (0.3-0.8); Monocytes Percent Auto 5.4 % (1.7-12.0); Neutrophils Percent Auto 75.2 % (43.0-75.0); Platelet Count 262 10^3/uL (150-450); Red Blood Count 4.16 10^6/uL (4.20-5.40); Red Cell Distribution Width 13.4 % (11.0-15.0); White Blood Count 13.3 10^3/uL (4.0-11.0)
[2024-04-11 10:12] LABS: Estimated Average Glucose 105 mg/dL; Glycohemoglobin A1C 5.3 % (4.5-6.2)
[2024-04-12 06:10] LABS: HBsAg Screen Negative (Negative); HCV Ab Non Reactive (Non Reactive); HIV Ab/p24 Ag Screen Non Reactive (Non Reactive); Rubella Antibodies, IgG 2.68 index (Immune >0.99)
[2024-04-12 13:09] LABS: Rapid Plasma Reagin, Quant Non Reactive titer (NonRea<1:1)
== END 2024-04-11 08:49 | disposition home or self-care (01) ==
LOC: LAB 08:49
PROVIDERS: PCP Nurse Practitioner Family; Visit Provider Obstetrics & Gynecology
DX: N92.6 Irregular menstruation, unspecified (principal); Z01.419 Encounter for gynecological examination (general) (routine) without abnormal findings
CPT/HCPCS: 36415; 83036; 85025; 86592; 86762; 86803; 86850; 86900; 86901; 87086; 87340; 87389; 88175

== ENCOUNTER 2024-04-11 19:29 | Outpatient (REF) | payer OTHER, SELFPAY ==
--- OUTSIDE RECORDS SUMMARY | 2024-04-11 19:46 | XMS_ITS | CCD ---
Author Organization [facility] Care Team Providers Care Pipe Buffer Name Role Phone Jonah King Unavailable Unavailable NONE, XXXX Unavailable Unavailable CHELE, CHANNING Admitting Unavailable CHELE, CHANNING Primary Care Unavailable CHELE, CHANNING Attending Unavailable TRINA, DR ANTONY Aguero Admitting Unavailable TRINA, DR ANTONY Aguero Attending Unavailable SPENCER ., JERSEY Consulting Unavailable CHELE, CHANNING Primary Care Unavailable DUSTY BUSCH Consulting Unavailable CHELE, CHANNING Primary Care Unavailable BONILLA QUICK Admitting Unavailable GRECHNY ., MINOO CASE Consulting Unavailabl e BONILLA QUICK Attending Unavailable CHELE, CHANNING Primary Care Unavailable MARKER ., DR JACKSON Attending Unavailable MARKER ., DR JACKSON Admitting Unavailable CHELE, CHANNING Primary Care Unavailable MARKER ., DR JACKSON Attending Unavailable MARKER ., DR JACKSON Admitting Unavailable MARKER ., DR JACKSON Consulting Unavailable CHELE, CHANNING Primary Care Unavailable YUE GUSTAFSON Admitting Unavailable ZIEBER, DR CHARLIE Aguero Consulting Unavailable YUE GUSTAFSON Attending Unavailable GRECHNY ., MINOO CASE Consulting Unavailabl e CHELE, CHANNING Primary Care Unavailable KENTRELL, DR WANDY Silva Consulting Unavailabl e KENTRELL, DR WANDY Silva Attending Unavailabl e REINPARVEEN, DR WANDY Silva Admitting Unavailabl e HAY ., DR DAI Attending Unavailable HAY ., DR DAI Admitting Unavailable CHELE, CHANNING Primary Care Unavailable MARI, DR PREM Sanchez Consulting Unavailable ZIEBJAIME, DR CHARLIE Aguero Consulting Unavailable HAY ., DR DAI Consulting Unavailable KARASIK ., DR SEAY Consulting Unavailabl e KARMARILIA ., DR SEAY Attending Unavailabl e KARASIK ., DR SEAY Admitting Unavailabl e CHELE, CHANNING Primary Care Unavailable ZIEBER, DR CHARLIE Aguero Consulting Unavailable LUIS ., DR MCDANIEL Admitting Unavailable CHELE, CHANNING Primary Care Unavailable LUIS ., DR MCDANIEL Attending Unavailable CHELE, [facility] Unavailable NURA, SWEETIE Admitting Unavailable NURASWEETIE Attending Unavailable KARASIK ., DR SEAY Consulting Unavailabl e KARASIK ., DR SEAY Attending Unavailabl e KARASIK ., DR SEAY Admitting Unavailabl e CHELE, [facility] Unavailable KARASIK ., DR SEAY Consulting Unavailabl e KARASIK ., DR SEAY Attending Unavailabl e KARASIK ., DR SEAY Admitting Unavailabl e CHELE, [facility] Unavailable KARASIK ., DR SEAY Attending Unavailabl e KARASIK ., DR SEAY Admitting Unavailabl e CHELE, [facility] Unavailable KARASIK ., DR SEAY Consulting Unavailabl e ZIEBJAIME, DR CHARLIE Aguero Consulting Unavailable CHELE, [facility] Unavailable REINECK, DR WANDY Silva Attending Unavailabl e KENTRELL, DR WANDY Silva Admitting Unavailabl e KENTRELL, DR WANDY Silva Consulting Unavailabl e LEAHY ., YOLANDA Consulting Unavailable Allergies Allergy Classification Reported Allergen(s) Allergy Type Date of Onset Reaction(s) Facility (2 sources) Escitalopram Drug Allergy 11-12-2021 [facility] Repository Problems Active Problems Problem Classification Problem Date Documented Date Episodic/Chronic Adjustment disorders (1 source) Reaction to severe stress, unspecified; Translations: [REACTION TO SEVERE STRESS UNS] Onset: 01-21-2022 Chronic Anxiety disorders (5 sources) Anxiety disorder, unspecified; Translations: [ANXIETY DISORDER UNSPECIFIED] Onset: 01-24-2022 Chronic Female infertility (4 sources) Female infertility associated with anovulation; Translations: [FE INFERTILITY ASSOC W/ANOVULATION] Onset: 12-02-2022 Chronic Immunizations and screening for infectious disease (1 source) Contact with and (suspected) exposure to infections with a predominantly sexual mode of transmission; Translations: [CONTCT W EXPOS INFECT SEXUAL TRNSMS] Onset: 11-21-2022 Episodic Other and delivery including normal (8 sources) Encounter for supervision of other normal , second trimester; Translations: [Encounter for test, result positive] Onset: 09-07-2022 Episodic Other screening for suspected conditions (not mental disorders or infectious disease) (5 sources) Encounter for screening for diabetes mellitus; Translations: [Encounter for other specified screening] Onset: 12-06-2022 Episodic Unclassified (1 source) COUGH, UNSPECIFIED; Translations: [COUGH, UNSPECIFIED] Onset: 12-26-2021 Past or Other Problems Problem Classification Problem Date Documented Date Episodic/Chronic Cardiac dysrhythmias (4 sources) Bradycardia, unspecified; Translations: [BRADYCARDIA UNSPECIFIED] Onset: 02-25-2022 Episodic Genitourinary symptoms and ill-defined conditions (4 sources) Dysuria; Translations: [DYSURIA] Onset: 06-06-2022 Episodic Other aftercare (1 source) Other ocean transportation intermediary (current) drug therapy; Translations: [OTH SENIOR LIVING CURRENT DRUG THERAPY] Onset: 01-26-2022 Episodic Other aftercare (1 source) longterm (current) use of anticoagulants; Translations: [SENIOR LIVING CURRNT USE ANTICOAGULANTS] Onset: 12-26-2021 Episodic Other connective tissue disease (4 sources) Pain in left lower leg; Translations: [PAIN IN LEFT LOWER LEG] Onset: 04-01-2022 Episodic Other female genital disorders (1 source) Other specified noninflammatory disorders of vagina; Translations: [OTH SPEC NONINFLAMMATORY D/O VAGINA] Onset: 06-09-2022 Episodic Other lower respiratory disease (3 sources) Shortness of breath; Translations: [SHORTNESS OF BREATH] Onset: 12-25-2021 Episodic Residual codes; unclassified (4 sources) Procedure and treatment not carried out due to patient leaving prior to being seen by health care provider; Translations: [PROC AND TX NOT CARRIED OUT PT LEAVE] Onset: 04-09-2022 Episodic Syncope (4 sources) Syncope and collapse; Translations: [SYNCOPE AND COLLAPSE] Onset: 01-30-2022 Episodic Thyroid disorders (1 source) Disorder of thyroid, unspecified; Translations: [DISORDER OF THYROID UNSPECIFIED] Onset: 01-26-2022 Episodic Results Test Name Value Interpretation Reference Range Facility GLUCOSE - 1HRon 12-10-2022 Glucose [Mass/Vol] 98 mg/dL Normal 74-106 [facility] Comment on above: Performed By: #### G LU1HR #### [facility] [address] [place] [address] Dr. Sara Matos HEMOGRAM AND PLATELon 2022 Hematocrit (Bld) [Volume fraction] 33.8 % Critically low 36.0-48.0 [facility] Comment on above: Performed By: #### T SH #### [facility] [address] [place] [address] Dr. Sara Matos Hemoglobin (Bld) [Mass/Vol] 11.1 g/dL Critically low 12.0-16.0 [facility] Comment on above: Performed By: #### T SH #### [facility] [address] [place] [address] Dr. Sara Matos MCH (RBC) [Entitic mass] 28.6 pg Normal 26.7-34.0 [facility] Comment on above: Performed By: #### T SH #### [facility] [address] [place] [address] Dr. Sara Matos MCHC (RBC) [Mass/Vol] 32.8 g/dL Normal 29.9-35.2 [facility] Comment on above: Performed By: #### T SH #### [facility] [address] [place] [address] Dr. Sara Matos MCV (RBC) [Entitic vol] 87.1 fL Normal 81.0-99.0 [facility] Comment on above: Performed By: #### T SH #### [facility] [address] [place] [address] Dr. Sara Matos PLT 188 103/ul Normal 150-450 [facility] Comment on above: Performed By: #### T SH #### [facility] [address] [place] [address] Dr. Sara Matos RBC 3.88 106/ul Critically low 4.20-5.40 [facility] Comment on above: Performed By: #### T SH #### [facility] [address] [place] [address] Dr. Sara Matos WBC 9.8 103/ul Normal 4.0-11.0 [facility] Comment on above: Performed By: #### T SH #### [facility] [address] [place] [address] Dr. Sara Matos US PREG ANATOMY SINGLEon US PREG ANATOMY SINGLE EXAMINATION: US PREG ANATOMY SINGLE HISTORY: anatomy study COMPARISON: Ultrasound dating 09/07/2022 TECHNIQUE: Transabdominal sonographic examination was performed for obstetrical and evaluation. FINDINGS: Number: 1 Heart Rate: 146.0 bpm H.B. /min Amniotic Fluid Volume: Subjectively normal Placental Location: Posterior without previa. Cervix Length: 5.0 cm, closed. ANATOMY: Normal Structures -cerebellum, choroid plexus, cisterna magna, lateral cerebral ventricles, orbits, midline falx, hard palate, four-chamber heart, RVOT, LVOT, stomach, kidneys, bladder, umbilical cord insertion into abdomen, three-vessel cord, cervical spine, thoracic spine, lumbar spine, sacral spine, right upper extremity, left upper extremity, right lower extremity, left lower extremity. SUBOPTIMALLY SEEN: None ABNORMALITIES: None BIOMETRY: BPD: 7.3 cm , 29 weeks 1 day HC: 27.3 cm , 29 weeks 6 days AC: 26.4 cm , 30 weeks 4 days FL: 5.4 cm , 28 weeks 6 days EFW:1453.9 grams; 61% by LMP; 39% by ultrasound FL/AC: 0.2 FL/BPD: 0.8 HC/AC: 1.0 GESTATIONAL AGE: Age by EDC: 29 weeks 1 day NATALIA by EDC: 02/16/2023 Age by current US: 29 weeks 5 days NATALIA by current US: 02/12/2023 IMPRESSION: 1. Single live intrauterine with growth detailed above. Electronically authenticated by: CHARLIE DE LA O Date: 2022-12-02 15:25 Normal [facility] HEP B SURFACE ANTIGEN SCREEN on 11-18-2022 HBsAg Screen Negative Normal Negative [facility] Comment on above: Performed By: #### JAIME GODWIN #### [facility] [address] [place] [address] Dr. Sara Matos HEPATITIS C VIRUS AB W/ REFL EX QUANTon 11-18-2022 HCV AB Non-Reactive Normal Non Reactive [facility] Comment on above: Performed By: #### JAIME GODWIN #### [facility] [address] [place] [address] Dr. Sara Matos Interpretation: Comment Normal [facility] Comment on above: Result Comment: Not infected with HCV unless early or acute infection is suspected (which may be delayed in an immunocompromised individual), or other evidence exists to indicate HCV infection. Performed By: #### E JAIME SINHA #### [facility] [address] [place] [address] Dr. Sara Matos HIV 1 AND 2 WITH REFLEXon HIV Screen 4th Generation wRfx Non-Reactive Normal Non Reactive [facility] Comment on above: Result Comment: HIV Negative HIV-1/HIV-2 antibodies and HIV-1 p24 antigen were NOT detected. There is no laboratory evidence of HIV infection. Performed By: #### E JAIME SINHA #### [facility] [address] [place] [address] Dr. Sara Matos RPR QUANTon 11-18-2022 Rapid Plasma Reagin, Quant Non-Reactive Normal NonRea<1:1 [facility] Comment on above: Result Comment: Plea se Note: This test does not meet current guidelines for screening and diagnosis of syphilis. This test is intended for following treatment response in patients being treated for syphilis infection. To screen for syphilis infection, a reflex cascade that includes both RPR and a treponema-specific assay should be utilized, such as Treponema pallidum (Syphilis) Screening Organ (704774) or Rapid Plasma Reagin (RPR) Test With Reflex to Quantitative RPR and Confirmatory Treponema pallidum Antibodies (775340). Performed By: #### T SH #### [facility] [address] [place] [address] Dr. Sara Matos RUBELLA AB IGGon 11-18-2022 Rubella Antibodies, IgG 3.67 index Normal Immune >0.99 [facility] Comment on above: Result Comment: Non- immune <0.90 Equivocal 0.90 - 0.99 Immune >0.99 Performed By: #### T SH #### [facility] [address] [place] [address] Dr. Sara Matos BOX TEST SENT OUTon 11-18-19 SENT TO REF LAB 11/17/2022 Normal [facility] Comment on above: Performed By: #### T SH #### [facility] [address] [place] [address] Dr. Sara Matos CBC AUTO DIFFon 11-17-2022 BASO # 0.0 103/ul Normal 0.0-0.1 [facility] Comment on above: Performed By: #### JAIME GODWIN #### [facility] [address] [place] [address] Dr. Sara Matos Basophils/100 WBC (Bld) 0.4 % Normal 0.2-2.0 [facility] Comment on above: Performed By: #### KACY GODWINRO #### [facility] [address] [place] [address] Dr. Sara Matos EO # 0.1 103/ul Normal 0.0-0.7 [facility] Comment on above: Performed By: #### JAIME GODWIN #### [facility] [address] [place] [address] Dr. Sara Matos Eosinophils/100 WBC (Bld) 1.3 % Normal 0.9-7.0 [facility] Comment on above: Performed By: #### JAIME GODWIN #### [facility] [address] [place] [address] Dr. Sara Matos Erythrocyte distribution width (RBC) [Ratio] 12.3 % Normal 11.0-15.0 [facility] Comment on above: Performed By: #### JAIME GODWIN #### [facility] [address] [place] [address] Dr. Sara Matos Hematocrit (Bld) [Volume fraction] 33.6 % Critically low 36.0-48.0 [facility] Comment on above: Performed By: #### JAIME GODWIN #### [facility] [address] [place] [address] Dr. Sara Matos Hemoglobin (Bld) [Mass/Vol] 11.3 g/dL Critically low 12.0-16.0 [facility] Comment on above: Performed By: #### KACY GODWINRO #### [facility] [address] [address] [address] Sara Matos IG # 0.04 10e3/ul Critically high 0.00-0.03 [facility] Comment on above: Performed By: #### FLORENTINO GODWINICRO #### [facility] [address] [place] [address] Dr. Sara Matos IG % 0.4 % Normal 0.0-0.5 [facility] Comment on above: Performed By: #### Mery SINHA UMICRO #### [facility] [address] [place] [address] Dr. Sara Matos LYMPH # 1.7 103/ul Normal 1.2-3.8 [facility] Comment on above: Performed By: #### Mery SINHA UMICRO #### [facility] [address] [place] [address] Dr. Sara Matos Lymphocytes/100 WBC (Bld) 16.7 % Critically low 20.5-60.0 [facility] Comment on above: Performed By: #### Mery SINHA UMICRO #### [facility] [address] [place] [address] Dr. Sara Matos MANUAL DIFF REQ NO Normal [facility] Comment on above: Performed By: #### Mery SINHA UMICRO #### [facility] [address] [place] [address] Dr. Sara Matos MCH (RBC) [Entitic mass] 28.8 pg Normal 26.7-34.0 [facility] Comment on above: Performed By: #### Mery SINHA UMICRO #### [facility] [address] [place] [address] Dr. Sara Matos MCHC (RBC) [Mass/Vol] 33.6 g/dL Normal 29.9-35.2 [facility] Comment on above: Performed By: #### Mery SINHA, UMICRO #### [facility] [address] [place] [address] Dr. Sara Matos MCV (RBC) [Entitic vol] 85.5 fL Normal 81.0-99.0 [facility] Comment on above: Performed By: #### KACY GODWINRO #### [facility] [address] [place] [address] Dr. Sara Matos MONO # 0.6 103/ul Normal 0.3-0.8 [facility] Comment on above: Performed By: #### KACY GODWINRO #### [facility] [address] [place] [address] Dr. Sara Matos Monocytes/100 WBC (Bld) 5.9 % Normal 1.7-12.0 [facility] Comment on above: Performed By: #### Mery SINHA UMICRO #### [facility] [address] [place] [address] Dr. Sara Matos NEUT # 7.7 103/ul Critically high 1.4-6.5 [facility] Comment on above: Performed By: #### KACY GODWINRO #### [facility] [address] [place] [address] Dr. Sara Matos Neutrophils/100 WBC (Bld) 75.3 % Critically high 43.0-75.0 [facility] Comment on above: Performed By: #### KACY GODWINRO #### [facility] [address] [place] [address] Dr. Sara Matos Platelet mean volume (Bld) [Entitic vol] 11.2 fL Normal 9.5-13.5 [facility] Comment on above: Performed By: #### FLORENTINO GODWINICRO #### [facility] [address] [place] [address] Dr. Sara Matos PLT 217 103/ul Normal 150-450 [facility] Comment on above: Performed By: #### KACY GODWINRO #### [facility] [address] [place] [address] Dr. Sara Matos RBC 3.93 106/ul Critically low 4.20-5.40 [facility] Comment on above: Performed By: #### KACY GODWINRO #### [facility] [address] [place] [address] Dr. Sara Matos WBC 10.2 103/ul Normal 4.0-11.0 [facility] Comment on above: Performed By: #### JAIME GODWIN #### [facility] [address] [place] [address] Dr. Sara Matos CULTURE URINEon 11-17-2022 CULTURE URINE Culture Observations : HEAVY GROWTH OF MIXED GENITAL JP. NO POTENTIAL PATHOGENS SEEN. Normal [facility] Comment on above: Performed By: #### JAIME GODWIN #### [facility] [address] [place] [address] Dr. Sara Matos DRUG SCREEN RAPID (URINE)on 11-17-2022 AMP Negative Normal NEGATIVE [facility] Comment on above: Performed By: #### P REGU, DRUGRPD #### [facility] [address] [place] [address] Dr. Sara Matos BAR Negative Normal NEGATIVE [facility] Comment on above: Performed By: #### P REGU, DRUGRPD #### [facility] [address] [place] [address] Dr. Sara Matos BUP Negative Normal NEGATIVE [facility] Comment on above: Performed By: #### P REGU, DRUGRPD #### [facility] [address] [place] [address] Dr. Sara Matos BZO Negative Normal NEGATIVE [facility] Comment on above: Performed By: #### P REGU, DRUGRPD #### [facility] [address] [place] [address] Dr. Sara Matos COLLEEN Negative Normal NEGATIVE [facility] Comment on above: Performed By: #### P REGU, DRUGRPD #### [facility] [address] [place] [address] Dr. Sara Matos CUT-OFFS SEE BELOW Normal [facility] Comment on above: Result Comment: AMP (Amphetamine): 500ng/mL, BAR (Barbituates): 200 ng/mL, BZO (Benzodiazepines): 150 ng/mL, BUP (Buprenorphine): 10 ng/mL, COLLEEN (Cocaine): 150 ng/mL, mAMP (Methamphetamine): 500 ng/mL, MTD (Methadone): 200 ng/mL, OPI (Opiates): 100 ng/mL, OXY (Oxycodone): 100 ng/mL, PCP (Phencyclidine): 25 ng/mL, PPX (Propoxyphene): 300 ng/mL, THC (Cannabinoids): 50 ng/mL, TCA (Trycyclic Antidepressants): 300 ng/mL Performed By: #### P REGU, DRUGRPD #### [facility] [address] [place] [address] Dr. Sara Matos DRUG CUT HEADER DRUG CLASS TEST SYSTEM CUT-OFF CONCENTRATIONS ARE FOLLOWS: Normal [facility] Comment on above: Performed By: #### P REGU, DRUGRPD #### [facility] [address] [place] [address] Dr. Sara Matos mAMP Negative Normal NEGATIVE [facility] Comment on above: Performed By: #### P REGU, DRUGRPD #### [facility] [address] [place] [address] Dr. Sara Matos MTD Negative Normal NEGATIVE [facility] Comment on above: Performed By: #### P REGU, DRUGRPD #### [facility] [address] [place] [address] Dr. Sara Matos OPI Negative Normal NEGATIVE [facility] Comment on above: Performed By: #### P REGU, DRUGRPD #### [facility] [address] [place] [address] Dr. Sara Matos OXY Negative Normal NEGATIVE [facility] Comment on above: Performed By: #### P REGU, DRUGRPD #### [facility] [address] [place] [address] Dr. Sara Matos PCP Negative Normal NEGATIVE [facility] Comment on above: Performed By: #### P REGU, DRUGRPD #### [facility] [address] [place] [address] Dr. Sara Matos PPX Negative Normal NEGATIVE [facility] Comment on above: Performed By: #### P REGU, DRUGRPD #### [facility] [address] [place] [address] Dr. Sara Matos TCA Negative Normal NEGATIVE [facility] Comment on above: Performed By: #### P REGU, DRUGRPD #### [facility] [address] [address] [address] Sara Matos THC Negative Normal NEGATIVE [facility] Comment on above: Performed By: #### P REGU, DRUGRPD #### [facility] [address] [address] [address] Sara Matos GLYCOHEMOGLOBIN A1Con 2022 ADA RECOMMENDATION SEE BELOW Normal [facility] Comment on above: Result Comment: ADA RECOMMENDED LIMIT 4.0 - 6.0 ADA THERAPEUTIC TARGET < 7.0 ACTION SUGGESTED > 7.0 Performed By: #### A 1C #### [facility] [address] [place] [address] Dr. Sara Matos Glucose [Mass/Vol] 85 mg/dL Normal [facility] Comment on above: Performed By: #### A 1C #### [facility] [address] [place] [address] Dr. Sara Matos HbA1c (Bld) [Mass fraction] 4.6 % Normal 4.5-6.2 [facility] Comment on above: Performed By: #### A 1C #### [facility] [address] [place] [address] Dr. Sara Matos URon 11-17-2022 , QUAL Positive Abnormal NEGATIVE [facility] Comment on above: Performed By: #### P URIEL DRUGRPD #### [facility] [address] [place] [address] Dr. Sara Matos TYPE AND SCREENon 11-17-2022 TYPE AND SCREEN Negative Normal [facility] Comment on above: Performed By: #### JAIME GODWIN #### [facility] [address] [place] [address] Dr. Sara Matos US PREG DATING >14WEEKSon US PREG DATING >14WEEKS EXAMINATION: US PREG DATING >14WEEKS HISTORY: Missed period COMPARISON: No relevant comparison available. FINDINGS: Heart Rate: 149.0 bpm Number: 1.0 Amniotic Fluid Volume: Subjectively normal BIOMETRY: BPD: 3.5 cm; 16 weeks 5 days HC: 12.8 cm; 16 weeks 4 days AC: 10.7 cm; 16 weeks 5 days FL: 2.1 cm; 16 weeks 3 days EFW: 157.5 grams; 28% FL/AC: 0.2 FL/BPD: 0.6 HC/AC: 1.2 GESTATIONAL AGE: Age by EDC: 16 weeks 6 days NATALIA by EDC: 02/16/2023 Age by US: 16 weeks 5 days NATALIA by US: 02/17/2023 IMPRESSION: 1. Single live intrauterine with growth detailed above. Electronically authenticated by: CHARLIE DE LA O Date: 2022-09-07 10:38 Normal [facility] CHLAMYDIA/GONOCOCCUS DEENA (SW AB/URINE/PAPon 06-10-2022 Chlamydia trachomatis, DEENA Negative Normal Negative [facility] Comment on above: Performed By: #### T SH #### [facility] [address] [place] [address] Dr. Sara Matos Neisseria gonorrhoeae, DEENA Negative Normal Negative [facility] Comment on above: Performed By: #### T SH #### [facility] [address] [place] [address] Dr. Sara Matos GENITAL CULTUREon 06-09-2022 Genital Culture, Routine NOBACT Normal [facility] Comment on above: Result Comment: Test not performed. No bacterial transport swab received. No bacterial swab received Contacted facility 06/09/22. Spoke with Sangeetha Luke Specimen stability note: A swab transport (ie., ESwab, Amies agar gel) received by the lab more than 24 hours after collection may result in reduced recovery of Neisseria gonorrhoeae (GC). (This is informational only and may not apply to this specimen.) Performed By: #### JAIME GODWIN #### [facility] [address] [place] [address] Dr. Sara Matos ER URINE PROFILEon 2 Bilirubin Ql (U) Negative Normal NEGATIVE [facility] Comment on above: Performed By: #### JAIME GODWIN #### [facility] [address] [place] [address] Dr. Sara Matos Clarity (U) CLEAR Normal CLEAR [facility] Comment on above: Performed By: #### Mery SINHA UMICRO #### [facility] [address] [place] [address] Dr. Sara Matos Color (U) LT. YELLOW Normal YELLOW [facility] Comment on above: Performed By: #### Mery SINHA UMICRO #### [facility] [address] [place] [address] Dr. Sara Matos ERUAHD A micrscopic examination will be performed if indicated. Normal [facility] Comment on above: Performed By: #### Mery SINHA UMICRO #### [facility] [address] [place] [address] Dr. Sara Matos Glucose Ql (U) Negative Normal NEGATIVE [facility] Comment on above: Performed By: #### Mery SINHA UMICRO #### [facility] [address] [place] [address] Dr. Sara Matos Hemoglobin Ql (U) Negative Normal NEGATIVE [facility] Comment on above: Performed By: #### Mery SINHA UMICRO #### [facility] [address] [place] [address] Dr. Sara Matos Ketones Ql (U) Negative Normal NEGATIVE [facility] Comment on above: Performed By: #### Mery SINHA UMICRO #### [facility] [address] [place] [address] Dr. Sara Matos LEUKOCYTES TRACE Abnormal NEGATIVE [facility] Comment on above: Performed By: #### Mery SINHA UMICRO #### [facility] [address] [place] [address] Dr. Sara Matos Nitrite Ql (U) Negative Normal NEGATIVE [facility] Comment on above: Performed By: #### Mery SINHA UMICRO #### [facility] [address] [place] [address] Dr. Sara Matos pH (U) 6.0 [pH] Normal 5-9 [facility] Comment on above: Performed By: #### Mery SINHA UMICRO #### [facility] [address] [place] [address] Dr. Sara Matos SPEC GRAVITY 1.015 Normal 1.005-<=1.025 [facility] Comment on above: Performed By: #### Mery SINHA UMICRO #### [facility] [address] [place] [address] Dr. Sara Matos UA PROTEIN Negative Normal NEGATIVE/ TRACE [facility] Comment on above: Performed By: #### Mery SINHA UMICRO #### [facility] [address] [place] [address] Dr. Sara Matos UR MICRO IND INDICATED Normal [facility] Comment on above: Performed By: #### Mery SINHA UMICRO #### [facility] [address] [place] [address] Dr. Sara Matos Urobilinogen Qn (U) 0.2 {Ana'U}/dL Normal 0.2 - 1. 0 [facility] Comment on above: Performed By: #### Mery SINHA UMICRO #### [facility] [address] [place] [address] Dr. Sraa Matos URon 06-06-2022 , QUAL Negative Normal NEGATIVE [facility] Comment on above: Performed By: #### P REGU #### [facility] [address] [place] [address] Dr. Sara Matos URINE MICROSCOPIC ONLYon BACTERIA NONE SEEN Normal NONE SEEN [facility] Comment on above: Performed By: #### Mery SINHA UMICRO #### [facility] [address] [place] [address] Dr. Sara Matos Bacteria identified Cx Nom (U) NOT INDICATED Normal [facility] Comment on above: Performed By: #### Mery SINHA UMICRO #### [facility] [address] [place] [address] Dr. Sara Matos CAST NONE SEEN Normal NONE SEEN [facility] Comment on above: Performed By: #### FLORENTINO GODWINICRO #### [facility] [address] [place] [address] Dr. Sara Matos Crystals LM Nom (Urine sed) NONE SEEN Normal NONE SEEN The [facility] Comment on above: Performed By: #### E BHARATH UMICRO #### [facility] [address] [place] [address] Dr. Sara Matos Epithelial cells LM Ql (Urine sed) FEW Abnormal NONE SEEN /RARE [facility] Comment on above: Performed By: #### Mery RULaci UMICRO #### [facility] [address] [place] [address] Dr. Sara Matos MUCOUS NONE SEEN Normal NONE SEEN [facility] Comment on above: Performed By: #### E BHARATH UMICRO #### [facility] [address] [place] [address] Dr. Sara Matos RBC NONE SEEN Abnormal 0-2 [facility] Comment on above: Performed By: #### FLORENTINO GODWINICRO #### [facility] [address] [place] [address] Dr. Sara Matos WBC 0-2 Abnormal NONE SEEN [facility] Comment on above: Performed By: #### E BHARATH UMICRO #### [facility] [address] [place] [address] Dr. Sara Matos WET PREPon 06-06-2022 CLUE CELLS NONE SEEN Normal NONE SEEN [facility] Comment on above: Performed By: #### T SH #### [facility] [address] [place] [address] Dr. Sara Matos FUNGAL ELEMENTS NONE SEEN Normal NONE SEEN [facility] Comment on above: Performed By: #### T SH #### [facility] [address] [place] [address] Dr. Sara Matos RBC -WET PREP NONE SEEN Normal NONE SEEN [facility] Comment on above: Performed By: #### T SH #### [facility] [address] [place] [address] Dr. Sara Matos TRICHOMONAS NONE SEEN Normal NONE SEEN The [facility] Comment on above: Performed By: #### T SH #### [facility] [address] [place] [address] Dr. Sara Matos WBC- WET PREP FEW Abnormal NONE SEEN [facility] Comment on above: Performed By: #### T SH #### [facility] [address] [address] [address] Sara Matos WET PREP BACTERIA NONE SEEN Normal NONE SEEN [facility] Comment on above: Performed By: #### T SH #### [facility] [address] [address] [address] Sara Matos Abstracton 04-25-2022 Abstract [id number] Astrid Montague C 1995 F Date Provider Department Center 04/25/2022 LILIAN AGUIRRE CARD [facility] Family History Problem Relation Age of Onset Heart attack Maternal Grandmother Coronary artery disease Maternal Grandmother Family Status - Relation Status Age at Maternal Grandmother Paternal Grandmother Normal [facility] Abstracton 04-22-2022 Abstract [id number] Astrid Montague 1995 Date Provider Department Center 04/22/2022 YURIDIA CARO CARD [facility] Family History Problem Relation Age of Onset Heart attack Paternal Grandmother Family Status - Relation Status Age at Paternal Grandmother Normal [facility] US GUY DOP LEG LTon 04-01-20 US GUY DOP LEG LT EXAMINATION: US GUY DOP LEG LT HISTORY: Deep venous thrombosis ; left calf pain COMPARISON: Ultrasound venous Doppler leg left 12/25/2021 FINDINGS: REGION: Left lower extremity THROMBI: None. COMPRESSIBILITY: Normal compressibility. FLOW: Normal waveform and antegrade flow between 5 and 20 cm/s. OTHER: None. IMPRESSION: 1. No deep vein thrombus within the left lower extremity. Electronically authenticated by: CHARLIE DE LA O Date: 2022-04-01 17:05 Normal [facility] METANEPHRINES PLASMA FREEon 02-04-2022 Metanephrine, Pl 13.7 pg/mL Normal 0.0-88.0 [facility] Comment on above: Performed By: #### P REGU, DRUGRPD #### [facility] [address] [address] [address] Sara Matos Normetanephrine, Pl 45.6 pg/mL Normal 0.0-210.1 [facility] Comment on above: Performed By: #### P URIEL, DRUGRPD #### [facility] [address] [place] [address] Dr. Sara Matos CARDIAC ANTONY ADMITon 022 CK [Catalytic activity/Vol] 67 U/L Normal 26-192 [facility] Comment on above: Performed By: #### T SH #### [facility] [address] [place] [address] Dr. Sara Matos CK.MB [Mass/Vol] 0.99 ng/mL Normal <=3.60 [facility] Comment on above: Performed By: #### T SH #### [facility] [address] [place] [address] Dr. Sara Matos HSTROP 4.7 pg/mL Normal 4.0-51.3 [facility] Comment on above: Result Comment: CUT- OFF POINTS HAVE BEEN ESTABLISHED BASED ON THE FOURTH UNIVERSAL DEFINITIONS OF MYOCARDIAL INFARCTION. THE UPPER REFERENCE LIMIT (URL) OF TROPONIN, DEFINED THE 99TH PERCENTILE OF cTnI DISTRIBUTION IN A REFERENCE POPULATION, HAS BEEN CONFIRMED THE DECISION THRESHOLD FOR NM DIAGNOSIS. Performed By: #### T SH #### [facility] [address] [place] [address] Dr. Sara Matos ELENA 34 ng/mL Normal 9-82 [facility] Comment on above: Performed By: #### T SH #### [facility] [address] [place] [address] Dr. Sara Matos CBC AUTO DIFFon 01-30-2022 BASO # 0.1 103/ul Normal 0.0-0.1 [facility] Comment on above: Performed By: #### T SH #### [facility] [address] [place] [address] Dr. Sara Matos Basophils/100 WBC (Bld) 0.8 % Normal 0.2-2.0 [facility] Comment on above: Performed By: #### T SH #### [facility] [address] [place] [address] Dr. Sara Matos EO # 0.1 103/ul Normal 0.0-0.7 [facility] Comment on above: Performed By: #### T SH #### [facility] [address] [place] [address] Dr. Sara Matos Eosinophils/100 WBC (Bld) 0.6 % Critically low 0.9-7.0 [facility] Comment on above: Performed By: #### T SH #### [facility] [address] [place] [address] Dr. Sara Matos Erythrocyte distribution width (RBC) [Ratio] 13.6 % Normal 11.0-15.0 [facility] Comment on above: Performed By: #### T SH #### [facility] [address] [place] [address] Dr. Sara Matos Hematocrit (Bld) [Volume fraction] 40.4 % Normal 36.0-48.0 [facility] Comment on above: Performed By: #### T SH #### [facility] [address] [place] [address] Dr. Sara Matos Hemoglobin (Bld) [Mass/Vol] 13.0 g/dL Normal 12.0-16.0 [facility] Comment on above: Performed By: #### T SH #### [facility] [address] [place] [address] Dr. Sara Matos IG # 0.03 10e3/ul Normal 0.00-0.03 [facility] Comment on above: Performed By: #### T SH #### [facility] [address] [place] [address] Dr. Sara Matos IG % 0.3 % Normal 0.0-0.5 [facility] Comment on above: Performed By: #### T SH #### [facility] [address] [place] [address] Dr. Sara Matos LYMPH # 2.6 103/ul Normal 1.2-3.8 [facility] Comment on above: Performed By: #### T SH #### [facility] [address] [place] [address] Dr. Sara Matos Lymphocytes/100 WBC (Bld) 26.5 % Normal 20.5-60.0 [facility] Comment on above: Performed By: #### T SH #### [facility] [address] [place] [address] Dr. Sara Matos MANUAL DIFF REQ NO Normal [facility] Comment on above: Performed By: #### T SH #### [facility] [address] [place] [address] Dr. Sara Matos MCH (RBC) [Entitic mass] 26.9 pg Normal 26.7-34.0 [facility] Comment on above: Performed By: #### T SH #### [facility] [address] [place] [address] Dr. Sara Matos MCHC (RBC) [Mass/Vol] 32.2 g/dL Normal 29.9-35.2 [facility] Comment on above: Performed By: #### T SH #### [facility] [address] [place] [address] Dr. Sara Matos MCV (RBC) [Entitic vol] 83.6 fL Normal 81.0-99.0 [facility] Comment on above: Performed By: #### T SH #### [facility] [address] [place] [address] Dr. Sara Matos MONO # 0.6 103/ul Normal 0.3-0.8 [facility] Comment on above: Performed By: #### T SH #### [facility] [address] [place] [address] Dr. Sara Matos Monocytes/100 WBC (Bld) 6.4 % Normal 1.7-12.0 [facility] Comment on above: Performed By: #### T SH #### [facility] [address] [place] [address] Dr. Sara Matos NEUT # 6.3 103/ul Normal 1.4-6.5 [facility] Comment on above: Performed By: #### T SH #### [facility] [address] [place] [address] Dr. Sara Matos Neutrophils/100 WBC (Bld) 65.4 % Normal 43.0-75.0 [facility] Comment on above: Performed By: #### T SH #### [facility] [address] [place] [address] Dr. Sara Matos Platelet mean volume (Bld) [Entitic vol] 11.8 fL Normal 9.5-13.5 [facility] Comment on above: Performed By: #### T SH #### [facility] [address] [place] [address] Dr. Sara Matos PLT 218 103/ul Normal 150-450 [facility] Comment on above: Performed By: #### T SH #### [facility] [address] [place] [address] Dr. Sara Matos RBC 4.83 106/ul Normal 4.20-5.40 [facility] Comment on above: Performed By: #### T SH #### [facility] [address] [place] [address] Dr. Sara Matos WBC 9.6 103/ul Normal 4.0-11.0 [facility] Comment on above: Performed By: #### T SH #### [facility] [address] [place] [address] Dr. Sara Matos ER URINE PROFILEon 2 Bilirubin Ql (U) Negative Normal NEGATIVE [facility] Comment on above: Performed By: #### KACY GODWINRO #### [facility] [address] [place] [address] Dr. Sara Matos Clarity (U) CLEAR Normal CLEAR [facility] Comment on above: Performed By: #### KACY GODWINRO #### [facility] [address] [place] [address] Dr. Sara Matos Color (U) LT. YELLOW Normal YELLOW [facility] Comment on above: Performed By: #### KACY GODWINRO #### [facility] [address] [place] [address] Dr. Sara BUCKNER A micrscopic examination will be performed if indicated. Normal [facility] Comment on above: Performed By: #### KACY GODWINRO #### [facility] [address] [place] [address] Dr. Sara Matos Glucose Ql (U) Negative Normal NEGATIVE [facility] Comment on above: Performed By: #### Mery SINHA UMICRO #### [facility] [address] [place] [address] Dr. Sara Matos Hemoglobin Ql (U) LARGE Abnormal NEGATIVE [facility] Comment on above: Performed By: #### Mery SINHA UMICRO #### [facility] [address] [address] [address] Sara Matos Ketones Ql (U) Negative Normal NEGATIVE [facility] Comment on above: Performed By: #### Mery SINHA UMICRO #### [facility] [address] [place] [address] Dr. Sara Matos LEUKOCYTES Negative Normal NEGATIVE [facility] Comment on above: Performed By: #### Mery SINHA UMICRO #### [facility] [address] [place] [address] Dr. Sara Matos Nitrite Ql (U) Negative Normal NEGATIVE [facility] Comment on above: Performed By: #### Mery SINHA UMICRO #### [facility] [address] [place] [address] Dr. Sara Matos pH (U) 6.0 [pH] Normal 5-9 [facility] Comment on above: Performed By: #### Mery SINHA UMICRO #### [facility] [address] [place] [address] Dr. Sara Matos SPEC GRAVITY <=1.005 Abnormal 1.005-<=1.025 [facility] Comment on above: Performed By: #### Mery SINHA UMICRO #### [facility] [address] [place] [address] Dr. Sara Matos UA PROTEIN Negative Normal NEGATIVE/ TRACE [facility] Comment on above: Performed By: #### Mery SINHA UMICRO #### [facility] [address] [place] [address] Dr. Sara Matos UR MICRO IND INDICATED Normal [facility] Comment on above: Performed By: #### FLORENTINO GODWINICRO #### [facility] [address] [place] [address] Dr. Sara Matos Urobilinogen Qn (U) 0.2 {Ana'U}/dL Normal 0.2 - 1. 0 [facility] Comment on above: Performed By: #### KACY GODWINRO #### [facility] [address] [place] [address] Dr. Sara Matos PREG HCG QUALon 01-30-2022 , QUAL Negative Normal NEGATIVE [facility] Comment on above: Performed By: #### Mery SINHA JONIRO #### [facility] [address] [place] [address] Dr. Sara Matos PROF 14(COMP METB)on 022 Albumin [Mass/Vol] 4.3 g/dL Normal 3.4-5.0 [facility] Comment on above: Performed By: #### T SH #### [facility] [address] [place] [address] Dr. Sara Matos Albumin/Globulin [Mass ratio] 1.2 {ratio} Normal [facility] Comment on above: Performed By: #### T SH #### [facility] [address] [place] [address] Dr. Sara Matos ALP [Catalytic activity/Vol] 63 U/L Normal 46-116 [facility] Comment on above: Performed By: #### T SH #### [facility] [address] [place] [address] Dr. Sara Matos ALT [Catalytic activity/Vol] 35 U/L Normal 14-59 [facility] Comment on above: Performed By: #### T SH #### [facility] [address] [place] [address] Dr. Sara Matos Anion gap [Moles/Vol] 9.7 mmol/L Normal [facility] Comment on above: Performed By: #### T SH #### [facility] [address] [place] [address] Dr. Sara Matos AST [Catalytic activity/Vol] 19 U/L Normal 15-37 [facility] Comment on above: Performed By: #### T SH #### [facility] [address] [address] [address] Sara Matos Bilirubin [Mass/Vol] 0.4 mg/dL Normal 0.2-1.0 [facility] Comment on above: Performed By: #### T SH #### [facility] [address] [address] [address] Sara Matos Calcium [Mass/Vol] 9.3 mg/dL Normal 8.5-10.1 [facility] Comment on above: Performed By: #### T SH #### [facility] [address] [address] [address] Sara Matos Chloride [Moles/Vol] 101 mmol/L Normal 98-107 [facility] Comment on above: Performed By: #### T SH #### [facility] [address] [place] [address] Dr. Sara Matos CO2 [Moles/Vol] 27.8 mmol/L Normal 21.0-32.0 [facility] Comment on above: Performed By: #### T SH #### [facility] [address] [address] [address] Sara Matos Creatinine [Mass/Vol] 0.78 mg/dL Normal 0.55-1.02 [facility] Comment on above: Performed By: #### T SH #### [facility] [address] [address] [address] Sara Matos EGFR-AF SPANISH >60 Normal >=60 [facility] Comment on above: Performed By: #### T SH #### [facility] [address] [address] [address] Sara Matos EGFR-NON AF SPANISH >60 Normal >=60 [facility] Comment on above: Performed By: #### T SH #### [facility] [address] [address] [address] Sara Matos Globulin (S) [Mass/Vol] 3.5 g/dL Normal [facility] Comment on above: Performed By: #### T SH #### [facility] [address] [place] [address] Dr. Sara Matos Glucose [Mass/Vol] 89 mg/dL Normal 74-106 [facility] Comment on above: Performed By: #### T SH #### [facility] [address] [place] [address] Dr. Sara Matos Potassium [Moles/Vol] 3.5 mmol/L Normal 3.5-5.1 [facility] Comment on above: Performed By: #### T SH #### [facility] [address] [place] [address] Dr. Sara Matos Protein [Mass/Vol] 7.8 g/dL Normal 6.4-8.2 [facility] Comment on above: Performed By: #### T SH #### [facility] [address] [place] [address] Dr. Sara Matos Sodium [Moles/Vol] 135 mmol/L Critically low 136-145 [facility] Comment on above: Performed By: #### T SH #### [facility] [address] [place] [address] Dr. Sara Matos Urea nitrogen [Mass/Vol] 6.0 mg/dL Critically low 7.0-18.0 [facility] Comment on above: Performed By: #### T SH #### [facility] [address] [place] [address] Dr. Sara Matos Urea nitrogen/Creatinine [Mass ratio] 7.7 mg/mg Normal [facility] Comment on above: Performed By: #### T SH #### [facility] [address] [place] [address] Dr. Sara Matos URINE MICROSCOPIC ONLYon BACTERIA NONE SEEN Normal NONE SEEN The [facility] Comment on above: Performed By: #### JAIME GODWIN #### [facility] [address] [place] [address] Dr. Sara Matos Bacteria identified Cx Nom (U) NOT INDICATED Normal [facility] Comment on above: Performed By: #### JAIME GODWIN #### [facility] [address] [place] [address] Dr. Sara Matos CAST NONE SEEN Normal NONE SEEN The [facility] Comment on above: Performed By: #### Mery SINHA UMICRO #### [facility] [address] [place] [address] Dr. Sara Matos Crystals LM Nom (Urine sed) NONE SEEN Normal NONE SEEN The [facility] Comment on above: Performed By: #### Mery SINHA UMICRO #### [facility] [address] [place] [address] Dr. Sara Matos Epithelial cells LM Ql (Urine sed) RARE Normal NONE SEEN /RARE The [facility] Comment on above: Performed By: #### Mery SINHA UMICRO #### [facility] [address] [place] [address] Dr. Sara Matos MUCOUS NONE SEEN Normal NONE SEEN The [facility] Comment on above: Performed By: #### Mery SINHA UMICRO #### [facility] [address] [place] [address] Dr. Sara Matos RBC 0-2 Normal 0-2 [facility] Comment on above: Performed By: #### Mery SINHA UMICRO #### [facility] [address] [place] [address] Dr. Sara Matos WBC 0-2 Abnormal NONE SEEN The [facility] Comment on above: Performed By: #### Mery SINHA UMICRO #### [facility] [address] [place] [address] Dr. Sara Matos CBC AUTO DIFFon 01-24-2022 BASO # 0.1 103/ul Normal 0.0-0.1 [facility] Comment on above: Performed By: #### Mery SINHA UMICRO #### [facility] [address] [place] [address] Dr. Sara Matos Basophils/100 WBC (Bld) 0.5 % Normal 0.2-2.0 [facility] Comment on above: Performed By: #### Mery SINHA, UMICRO #### [facility] [address] [place] [address] Dr. Sara Matos EO # 0.0 103/ul Normal 0.0-0.7 [facility] Comment on above: Performed By: #### JAIME GODWIN #### [facility] [address] [place] [address] Dr. Sara Matos Eosinophils/100 WBC (Bld) 0.4 % Critically low 0.9-7.0 [facility] Comment on above: Performed By: #### JAIME GODWIN #### [facility] [address] [place] [address] Dr. Sara Matos Erythrocyte distribution width (RBC) [Ratio] 13.3 % Normal 11.0-15.0 [facility] Comment on above: Performed By: #### JAIME GODWIN #### [facility] [address] [place] [address] Dr. Sara Matos Hematocrit (Bld) [Volume fraction] 39.4 % Normal 36.0-48.0 [facility] Comment on above: Performed By: #### JAIME GODWIN #### [facility] [address] [place] [address] Dr. Sara Matos Hemoglobin (Bld) [Mass/Vol] 12.9 g/dL Normal 12.0-16.0 [facility] Comment on above: Performed By: #### JAIME GODWIN #### [facility] [address] [place] [address] Dr. Sara Matos IG # 0.03 10e3/ul Normal 0.00-0.03 [facility] Comment on above: Performed By: #### KACY GODWINRO #### [facility] [address] [place] [address] Dr. Sara Matos IG % 0.3 % Normal 0.0-0.5 [facility] Comment on above: Performed By: #### JAIME GODWIN #### [facility] [address] [place] [address] Dr. Sara Matos LYMPH # 2.8 103/ul Normal 1.2-3.8 [facility] Comment on above: Performed By: #### JAIME GODWIN #### [facility] [address] [place] [address] Dr. Sara Matos Lymphocytes/100 WBC (Bld) 25.3 % Normal 20.5-60.0 [facility] Comment on above: Performed By: #### E BHARATH UMICRO #### [facility] [address] [place] [address] Dr. Sara Matos MANUAL DIFF REQ NO Normal [facility] Comment on above: Performed By: #### E BHARATH UMICRO #### [facility] [address] [place] [address] Dr. Sara Matos MCH (RBC) [Entitic mass] 26.5 pg Critically low 26.7-34.0 [facility] Comment on above: Performed By: #### Mery SINHA UMICRO #### [facility] [address] [place] [address] Dr. Sara Matos MCHC (RBC) [Mass/Vol] 32.7 g/dL Normal 29.9-35.2 [facility] Comment on above: Performed By: #### Mery SINHA UMICRO #### [facility] [address] [place] [address] Dr. Sara Matos MCV (RBC) [Entitic vol] 80.9 fL Critically low 81.0-99.0 [facility] Comment on above: Performed By: #### Mery SINHA UMICRO #### [facility] [address] [place] [address] Dr. Sara Matos MONO # 0.8 103/ul Normal 0.3-0.8 [facility] Comment on above: Performed By: #### Mery SINHA UMICRO #### [facility] [address] [place] [address] Dr. Sara Matos Monocytes/100 WBC (Bld) 6.8 % Normal 1.7-12.0 [facility] Comment on above: Performed By: #### Mery SINHA, UMICRO #### [facility] [address] [place] [address] Dr. Sara Matos NEUT # 7.4 103/ul Critically high 1.4-6.5 [facility] Comment on above: Performed By: #### JAIME GODWIN #### [facility] [address] [place] [address] Dr. Sara Matos Neutrophils/100 WBC (Bld) 66.7 % Normal 43.0-75.0 [facility] Comment on above: Performed By: #### JAIME GODWIN #### [facility] [address] [place] [address] Dr. Sara Matos Platelet mean volume (Bld) [Entitic vol] 11.3 fL Normal 9.5-13.5 [facility] Comment on above: Performed By: #### JAIME GODWIN #### [facility] [address] [place] [address] Dr. Sara Matos PLT 281 103/ul Normal 150-450 [facility] Comment on above: Performed By: #### JAIME GODWIN #### [facility] [address] [place] [address] Dr. Sara Matos RBC 4.87 106/ul Normal 4.20-5.40 [facility] Comment on above: Performed By: #### JAIME GODWIN #### [facility] [address] [place] [address] Dr. Sara Matos WBC 11.1 103/ul Critically high 4.0-11.0 [facility] Comment on above: Performed By: #### JAIME GODWIN #### [facility] [address] [place] [address] Dr. Sara Matos MAGNESIUMon 01-24-2022 Magnesium [Mass/Vol] 2.0 mg/dL Normal 1.8-2.4 [facility] Comment on above: Performed By: #### JAIME GODWIN #### [facility] [address] [place] [address] Dr. Sara Matos T3 UPTAKEon 01-24-2022 T3U 37.0 % Normal 30.0-39.0 [facility] Comment on above: Performed By: #### T 3UP #### [facility] [address] [place] [address] Dr. Sara Matos T4on 01-24-2022 T4 [Mass/Vol] 11.60 ug/dL Normal 4.80-13.90 [facility] Comment on above: Performed By: #### T 4 #### [facility] [address] [place] [address] Dr. Sara Matos TSHon 01-24-2022 TSH 0.547 uIU/mL Normal 0.358-3.740 [facility] Comment on above: Performed By: #### T SH #### [facility] [address] [place] [address] Dr. Sara Matos TSH RANGE SEE BELOW Normal [facility] Comment on above: Result Comment: <0.3 4 UIU/ml HYPERTHYROID 0.34-5.60 UIU/ml EUTHYROID >5.60 UIU/ml HYPOTHYROID Performed By: #### T SH #### [facility] [address] [place] [address] Dr. Sara Matos CBC AUTO DIFFon 01-19-2022 BASO # 0.0 103/ul Normal 0.0-0.1 [facility] Comment on above: Performed By: #### T SH #### [facility] [address] [place] [address] Dr. Sara Matos Basophils/100 WBC (Bld) 0.5 % Normal 0.2-2.0 [facility] Comment on above: Performed By: #### T SH #### [facility] [address] [place] [address] Dr. Sara Matos EO # 0.1 103/ul Normal 0.0-0.7 [facility] Comment on above: Performed By: #### T SH #### [facility] [address] [place] [address] Dr. Sara Matos Eosinophils/100 WBC (Bld) 1.1 % Normal 0.9-7.0 [facility] Comment on above: Performed By: #### T SH #### [facility] [address] [place] [address] Dr. Sara Matos Erythrocyte distribution width (RBC) [Ratio] 13.6 % Normal 11.0-15.0 [facility] Comment on above: Performed By: #### T SH #### [facility] [address] [place] [address] Dr. Sara Matos Hematocrit (Bld) [Volume fraction] 38.4 % Normal 36.0-48.0 [facility] Comment on above: Performed By: #### T SH #### [facility] [address] [place] [address] Dr. Sara Matos Hemoglobin (Bld) [Mass/Vol] 12.5 g/dL Normal 12.0-16.0 [facility] Comment on above: Performed By: #### T SH #### [facility] [address] [place] [address] Dr. Sara Matos IG # 0.02 10e3/ul Normal 0.00-0.03 [facility] Comment on above: Performed By: #### T SH #### [facility] [address] [place] [address] Dr. Sara Matos IG % 0.2 % Normal 0.0-0.5 [facility] Comment on above: Performed By: #### T SH #### [facility] [address] [place] [address] Dr. Sara Matos LYMPH # 2.5 103/ul Normal 1.2-3.8 [facility] Comment on above: Performed By: #### T SH #### [facility] [address] [place] [address] Dr. Sara Matos Lymphocytes/100 WBC (Bld) 28.9 % Normal 20.5-60.0 [facility] Comment on above: Performed By: #### T SH #### [facility] [address] [place] [address] Dr. Sara Matos MANUAL DIFF REQ NO Normal [facility] Comment on above: Performed By: #### T SH #### [facility] [address] [place] [address] Dr. Sara Matos MCH (RBC) [Entitic mass] 26.9 pg Normal 26.7-34.0 [facility] Comment on above: Performed By: #### T SH #### [facility] [address] [place] [address] Dr. Sara Matos MCHC (RBC) [Mass/Vol] 32.6 g/dL Normal 29.9-35.2 [facility] Comment on above: Performed By: #### T SH #### [facility] [address] [place] [address] Dr. Sara Matos MCV (RBC) [Entitic vol] 82.6 fL Normal 81.0-99.0 [facility] Comment on above: Performed By: #### T SH #### [facility] [address] [place] [address] Dr. Sara Matos MONO # 0.7 103/ul Normal 0.3-0.8 [facility] Comment on above: Performed By: #### T SH #### [facility] [address] [place] [address] Dr. Sara Matos Monocytes/100 WBC (Bld) 7.5 % Normal 1.7-12.0 [facility] Comment on above: Performed By: #### T SH #### [facility] [address] [place] [address] Dr. Sara Matos NEUT # 5.4 103/ul Normal 1.4-6.5 [facility] Comment on above: Performed By: #### T SH #### [facility] [address] [place] [address] Dr. Sara Matos Neutrophils/100 WBC (Bld) 61.8 % Normal 43.0-75.0 [facility] Comment on above: Performed By: #### T SH #### [facility] [address] [place] [address] Dr. Sara Matos Platelet mean volume (Bld) [Entitic vol] 11.4 fL Normal 9.5-13.5 [facility] Comment on above: Performed By: #### T SH #### [facility] [address] [place] [address] Dr. Sara Matos PLT 233 103/ul Normal 150-450 [facility] Comment on above: Performed By: #### T SH #### [facility] [address] [place] [address] Dr. Sara Matos RBC 4.65 106/ul Normal 4.20-5.40 [facility] Comment on above: Performed By: #### T SH #### [facility] [address] [place] [address] Dr. Sara Matos WBC 8.8 103/ul Normal 4.0-11.0 [facility] Comment on above: Performed By: #### T SH #### [facility] [address] [place] [address] Dr. Sara Matos PROF 14(COMP METB)on 022 Albumin [Mass/Vol] 3.8 g/dL Normal 3.4-5.0 [facility] Comment on above: Performed By: #### JAIME GODWIN #### [facility] [address] [place] [address] Dr. Sara Matos Albumin/Globulin [Mass ratio] 1.0 {ratio} Normal [facility] Comment on above: Performed By: #### JAIME GODWIN #### [facility] [address] [place] [address] Dr. Sara Matos ALP [Catalytic activity/Vol] 65 U/L Normal 46-116 [facility] Comment on above: Performed By: #### JAIME GODWIN #### [facility] [address] [place] [address] Dr. Sara Matos ALT [Catalytic activity/Vol] 52 U/L Normal 14-59 [facility] Comment on above: Performed By: #### JAIME GODWIN #### [facility] [address] [place] [address] Dr. Sara Matos Anion gap [Moles/Vol] 12.0 mmol/L Normal [facility] Comment on above: Performed By: #### JAIME GODWIN #### [facility] [address] [place] [address] Dr. Sara Matos AST [Catalytic activity/Vol] 28 U/L Normal 15-37 [facility] Comment on above: Performed By: #### JAIME GODWIN #### [facility] [address] [place] [address] Dr. Sara Matos Bilirubin [Mass/Vol] 0.4 mg/dL Normal 0.2-1.0 [facility] Comment on above: Performed By: #### JAIME GODWIN #### [facility] [address] [place] [address] Dr. Sara Matos Calcium [Mass/Vol] 9.5 mg/dL Normal 8.5-10.1 [facility] Comment on above: Performed By: #### JAIME GODWIN #### [facility] [address] [place] [address] Dr. Sara Matos Chloride [Moles/Vol] 103 mmol/L Normal 98-107 [facility] Comment on above: Performed By: #### JAIME GODWIN #### [facility] [address] [place] [address] Dr. Sara Matos CO2 [Moles/Vol] 26.7 mmol/L Normal 21.0-32.0 [facility] Comment on above: Performed By: #### JAIME GODWIN #### [facility] [address] [place] [address] Dr. Sara Matos Creatinine [Mass/Vol] 0.69 mg/dL Normal 0.55-1.02 [facility] Comment on above: Performed By: #### KACY GODWINRO #### [facility] [address] [place] [address] Dr. Sara Matos EGFR-AF SPANISH >60 Normal >=60 [facility] Comment on above: Performed By: #### JAIME GODWIN #### [facility] [address] [place] [address] Dr. Sara Matos EGFR-NON AF SPANISH >60 Normal >=60 [facility] Comment on above: Performed By: #### KACY GODWINRO #### [facility] [address] [address] [address] Sara Matos Globulin (S) [Mass/Vol] 3.9 g/dL Normal [facility] Comment on above: Performed By: #### FLORENTINO GODWINICRO #### [facility] [address] [address] [address] Sara Matos Glucose [Mass/Vol] 84 mg/dL Normal 74-106 [facility] Comment on above: Performed By: #### Mery SINHA, UMICRO #### [facility] [address] [place] [address] Dr. Sara Matos Potassium [Moles/Vol] 3.7 mmol/L Normal 3.5-5.1 [facility] Comment on above: Performed By: #### Mery SINHA, UMICRO #### [facility] [address] [place] [address] Dr. Sara Matos Protein [Mass/Vol] 7.7 g/dL Normal 6.4-8.2 [facility] Comment on above: Performed By: #### Mery SINHA, UMICRO #### [facility] [address] [place] [address] Dr. Sara Matos Sodium [Moles/Vol] 138 mmol/L Normal 136-145 [facility] Comment on above: Performed By: #### Mery SINHA, UMICRO #### [facility] [address] [place] [address] Dr. Sara Matos Urea nitrogen [Mass/Vol] 8.0 mg/dL Normal 7.0-18.0 [facility] Comment on above: Performed By: #### Mery SINHA, UMICRO #### [facility] [address] [place] [address] Dr. Sara Matos Urea nitrogen/Creatinine [Mass ratio] 11.6 mg/mg Normal [facility] Comment on above: Performed By: #### Mery SINHA, UMICRO #### [facility] [address] [place] [address] Dr. Sara Matos TROPONIN, HIGH SENSITIVITYon 01-19-2022 HSTROP <4.0 Normal 4.0-51.3 [facility] Comment on above: Result Comment: CUT- OFF POINTS HAVE BEEN ESTABLISHED BASED ON THE FOURTH UNIVERSAL DEFINITIONS OF MYOCARDIAL INFARCTION. THE UPPER REFERENCE LIMIT (URL) OF TROPONIN, DEFINED THE 99TH PERCENTILE OF cTnI DISTRIBUTION IN A REFERENCE POPULATION, HAS BEEN CONFIRMED THE DECISION THRESHOLD FOR NM DIAGNOSIS. Performed By: #### JAIME GODWIN #### [facility] [address] [address] [address] Sara Matos XR CHEST 1 Von 01-19-2022 XR CHEST 1 V EXAMINATION: XR CHES T 1 V, , 01/19/2022 8:33 PM EDT INDICATION: CHEST PAIN, UNSPECIFIED HISTORY: Ordering Provider Reason for Exam: Technologist Note: Additional: COMPARISON: Chest x-ray of 12/25/2021. TECHNIQUE: Chest x-ray: One view. FINDINGS: No pneumothorax, pleural effusion or focal airspace consolidation. Heart is normal in size. Bony thorax is unremarkable. IMPRESSION: No acute cardiopulmonary process. Electronically authenticated by: DUSTY BUSCH Date: 2022-01-19 21:50 Normal [facility] US GUY DOP LEG LTon 12-26-19 22 US GUY DOP LEG LT EXAMINATION: US GUY DOP LEG LT HISTORY: Superficial thrombophlebitis COMPARISON: Ultrasound venous Doppler leg left 12/03/2021 FINDINGS: REGION: Left lower extremity THROMBI: None. COMPRESSIBILITY: Normal compressibility. FLOW: Normal waveform and antegrade flow between 5 and 20 cm/s. OTHER: None. IMPRESSION: 1. No deep vein thrombus within the left lower extremity. 2. Clearing of previously seen superficial thrombus. Electronically authenticated by: CHARLIE DE LA O Date: 2021-12-25 12:20 Normal [facility] XR CHEST 1 Von 12-25-2021 XR CHEST 1 V EXAMINATION: XR CHES T 1 V HISTORY: SHORTNESS OF BREATH COMPARISON: 11/08/2021 TECHNIQUE: AP portable erect FINDINGS: LUNGS: No significant pulmonary parenchymal abnormalities. VASCULATURE: No increased pulmonary vasculature. PLEURA: No pneumothorax, effusion, or pleural thickening. CARDIAC: No cardiomegaly or cardiac silhouette abnormality. MEDIASTINUM: No visible mass or adenopathy. BONES: No fracture or visible bone lesion. OTHER: Negative. IMPRESSION: No acute disease. Electronically authenticated by: PREM GUERRA Date: 2021-12-25 11:45 Normal [facility] U24 Proteinon 09-04-2017 PROTEIN:MCNC:24H:UR INE:QN: 102 mg/24hr Normal 28-141 [facility] Comment on above: Performed By: #### 2 [id number] ####[facility] [address] [place] [address] ALBUMIN/PROTEIN.TOT AL:MFR:PT:URINE:QN: ELECTROPHORESIS 8.0 mg/dL Invalid Interpretation Code [facility] Comment on above: Result Comment: The reference range and other method performance specifications have not been established for this test; results should be integrated into the clinical context for interpretation. Performed By: #### 2 [id number], [id number] ####[facility] [address] [place] [address] U24 Total Volon 09-04-2017 Hrs Glenna 24 hour(s) Invalid Interpretation Code [facility] Comment on above: Order Comment: Order added by Discern Expert Performed By: #### 2 [id number] ####[facility] [address] [place] [address] SPECIMEN VOLUME:VOL:XXX:URIN E:QN: 1280 mL Invalid Interpretation Code [facility] Comment on above: Order Comment: Order added by Discern Expert Performed By: #### 2 [id number], [id number] ####[facility] [address] [place] [address] Encounters Encounter Date Encounter Type Care Provider Facility Start: 12-10-2022 End: 12-11-[address] JONAH KING . Facility:[facility] Start: 12-02-2022 End: 12-03-[address] JONAH KING . Facility:[facility] Start: 11-17-2022 End: 11-18-[address] JONAH KING . Facility:[facility] Start: 09-07-2022 End: 09-08-[address] JONAH KING . Facility:[facility] Start: 07-20-[address] JONAS SMITH . Facili ty:[facility] Start: 06-06-2022 End: 06-06-2022 ambulatory CHANNING CHELE Facility:[facility] Start: 04-22-2022 ambulatory CHANNING CHELE Facility: [facility] Start: 04-09-2022 End: 04-09-2022 ambulatory CHANNING CHELE Facility:[facility] Start: 04-01-2022 End: 04-01-2022 ambulatory CHANNING CHELE Facility:[facility] Start: 03-09-2022 ambulatory CHANNING CHELE Facility: [facility] Start: 02-25-2022 End: 02-25-2022 ambulatory CHANNING CHELE Facility:[facility] Start: 01-30-2022 End: 01-30-2022 ambulatory CHANNING CHELE Facility:[facility] Start: 01-24-2022 End: 01-24-2022 ambulatory CHANNING CHELE Facility:[facility] Start: 01-19-2022 End: 01-19-[address] ANTONY MENA Facility:[facility] Start: 12-25-2021 End: 12-25-[address] SUHAS Case Facility:[facility] Start: 09-04-2017 End: 09-05-2017 Ambulatory Jonah [place] [place] Date Payer Category Payer Unknown [id number] 2.16.84 [id number] 1995 Unknown [id number] 2.16.84 [id number] 1995 Unknown [id number] 2.16.84 [id number] 1995 Unknown [id number] .16.84 [id number] 1995 Unknown [id number] 2.16.84 0.1.177051.3.579.2.593 1995 Unknown [id number] 2.16.84 0.1.027634.3.579.2.593 1995 Unknown [id number] 2.16.84 0.1.071095.3.579.2.593 1995 Unknown [id number] 2.16.84 0.1.975004.3.579.2.593 1995 Unknown [id number] 2.16.84 0.1.447994.3.579.2.593 1995 Unknown [id number] 2.16.84 0.1.244890.3.579.2.593 1995 Unknown [id number] 2.16.84 0.1.490872.3.579.2.593 1995 Unknown [id number] 2.16.84 0.1.073579.3.579.2.593 1995 Unknown [id number] 2.16.84 0.1.645303.3.579.2.593 1995 Unknown [id number] 2.16.84 0.1.652886.3.579.2.593 1995 Unknown [id number] 2.16.84 [id number] 1959 Self-pay [id number] 1959 Unknown [id number] Summary Purpose Family History No Family History Records FoundNo Family History Records FoundNo Family History Records Found Advance Directives No Advanced Directives Records FoundNo Advanced Directives Records FoundNo Advanced Directives Records Found Additional Source Comments INFORMATION SOURCE (unrecogn ized section and content) DATE CREATED AUTHOR 02/04/2018 [facility] DATE CREATED AUTHOR AUTHOR'S ORGANIZ ATION 04/25/2022 [facility] DATE CREATED AUTHOR AUTHOR'S ORGANIZ ATION 12/13/2022 [facility] FOR RECORDS PERTAINING TO PATIENTS WHO ARE OR HAVE BEEN ENROLLED IN A CHEMICAL DEPENDENCY/SUBSTANCEABUSE PROGRAM, SOME INFORMATION MAY BE OMITTED. This clinical summary was aggregated from multiple sources. Caution should be exercised in using it in the provision of clinical care. This summary normalizes information from multiple sources, and as a consequence, information in this document may materially change the coding, format and clinical context of patient data. In addition, data may be omitted in some cases. CLINICAL DECISIONS SHOULD BE BASED ON THE PRIMARY CLINICAL RECORDS. [facility]. provides no warranty or guarantee of the accuracy or completeness of information in this document.
== END 2024-04-11 19:30 | disposition home or self-care (01) ==
LOC: LAB 19:29
PROVIDERS: PCP Nurse Practitioner Family; Visit Provider Obstetrics & Gynecology
DX: Z01.419 Encounter for gynecological examination (general) (routine) without abnormal findings (principal)
CPT/HCPCS: 88175

== ENCOUNTER 2024-04-18 10:51 | Outpatient (OUT) | payer OTHER, SELFPAY ==
--- NOTE | 2024-04-18 10:52 | US_ITS ---
[address] [address] Patient Name: MICHAEL BRAXTON MRN: [id number] date: 1995 Sex: F Assigned Patient Location: US Current Patient Location: US Accession/Order Number: [id number] Exam Date: 04/18/2024 11:00 Report Date: 04/18/2024 12:06 At the request of: JONAS SMITH Procedure: US OB cervical length EXAMINATION: US OB anatomy, US OB cervical length HISTORY: anatomic survey COMPARISON: Ultrasound OB greater than 14 weeks 03/09/2024 TECHNIQUE: Transabdominal sonographic examination was performed for obstetrical and evaluation. FINDINGS: Number: 1 Heart Rate: 160.71 bpm H.B. /min Amniotic Fluid Volume: Subjectively normal Placental Location: Anterior with lower margin 5.4 cm from os. Cervix Length: 5.80 cm , closed. ANATOMY: Normal Structures -cerebellum, choroid plexus, cisterna magna, lateral cerebral ventricles, orbits, midline falx, four-chamber heart, RVOT, LVOT, stomach, kidneys, bladder, umbilical cord insertion into abdomen, three-vessel cord, cervical spine, thoracic spine, lumbar spine, sacral spine, right upper extremity, left upper extremity, right lower extremity, left lower extremity. SUBOPTIMALLY SEEN: Nasal bones ABNORMALITIES: None BIOMETRY: BPD: 5.08 cm; 21 weeks 3 days; 7 % HC: 19.69 cm; 21 weeks 6 days; 10.10 % AC: 18.03 cm; 22 weeks 6 days; 47.40 % FL: 3.64 cm; 21 weeks 4 days; 9.50 % EFW:485.42 g; 21.10 % FL/AC: 20.19 FL/BPD: 71.74 HC/AC: 1.09 GESTATIONAL AGE: Age by EDC: 22 weeks 5 days Age by current US: 22 weeks 0 days NATALIA by current US: 2024-08-22 NATALIA by EDC: 2024-08-17 US/US OB cervical length IMPRESSION: 1. Single live intrauterine with growth detailed above. 2. Suboptimal visualization of the nasal bones due to position. Electronically authenticated by: CHARLIE DE LA O Date: 04/18/2024 12:06
--- NOTE | 2024-04-18 10:52 | US_ITS ---
[address] [address] Patient Name: MICHAEL BRAXTON MRN: [id number] date: 1995 Sex: F Assigned Patient Location: US Current Patient Location: US Accession/Order Number: [id number] Exam Date: 04/18/2024 11:00 Report Date: 04/18/2024 12:06 At the request of: JONAS SMITH Procedure: US OB anatomy EXAMINATION: US OB anatomy, US OB cervical length HISTORY: anatomic survey COMPARISON: Ultrasound OB greater than 14 weeks 03/09/2024 TECHNIQUE: Transabdominal sonographic examination was performed for obstetrical and evaluation. FINDINGS: Number: 1 Heart Rate: 160.71 bpm H.B. /min Amniotic Fluid Volume: Subjectively normal Placental Location: Anterior with lower margin 5.4 cm from os. Cervix Length: 5.80 cm , closed. ANATOMY: Normal Structures -cerebellum, choroid plexus, cisterna magna, lateral cerebral ventricles, orbits, midline falx, four-chamber heart, RVOT, LVOT, stomach, kidneys, bladder, umbilical cord insertion into abdomen, three-vessel cord, cervical spine, thoracic spine, lumbar spine, sacral spine, right upper extremity, left upper extremity, right lower extremity, left lower extremity. SUBOPTIMALLY SEEN: Nasal bones ABNORMALITIES: None BIOMETRY: BPD: 5.08 cm; 21 weeks 3 days; 7 % HC: 19.69 cm; 21 weeks 6 days; 10.10 % AC: 18.03 cm; 22 weeks 6 days; 47.40 % FL: 3.64 cm; 21 weeks 4 days; 9.50 % EFW:485.42 g; 21.10 % FL/AC: 20.19 FL/BPD: 71.74 HC/AC: 1.09 GESTATIONAL AGE: Age by EDC: 22 weeks 5 days Age by current US: 22 weeks 0 days NATALIA by current US: 2024-08-22 NATALIA by EDC: 2024-08-17 US/US OB anatomy IMPRESSION: 1. Single live intrauterine with growth detailed above. 2. Suboptimal visualization of the nasal bones due to position. Electronically authenticated by: CHARLIE DE LA O Date: 04/18/2024 12:06
--- OUTSIDE RECORDS SUMMARY | 2024-04-18 11:05 | XMS_ITS | CCD ---
Author Organization [facility] Care Team Providers Care [facility] Specialist Name Role Phone Jonah King Unavailable Unavailable [...] KARASIK ., DR SEAY Admitting Unavailabl e HCELE, CHANNING Primary Care Unavailable ZIEBER, DR CHARLIE Aguero Consulting Unavailable LUIS ., DR MCDANIEL Admitting Unavailable CHELE, CHANNING Primary Care Unavailable LUIS ., DR MCDANIEL Attending Unavailable [facility] Unavailable NURAARLENESWEETIE Admitting Unavailable NURASWEETIE SANDOVAL Attending Unavailable KARASIK ., DR SEAY Consulting Unavailabl e KARASIK ., DR SEAY Attending Unavailabl e KARASIK ., DR SEAY Admitting Unavailabl e CHELE, [facility] Unavailable KARASIK ., DR SEAY Consulting Unavailabl e KARASIK ., DR SEAY Attending Unavailabl e KARASIK ., DR SEAY Ad[facility] ., DR SEAY Attending Unavailabl e KARASIK ., DR SEAY Admitting Unavailabl e CHELE, [facility] Unavailable KARASIK ., DR SEAY Consulting Unavailabl e ZIEBER, DR CHARLIE Aguero Consulting Un[facility] REINECK, DR WANDY Silva Attending Unavailabl e KENTRELL, DR WANDY Silva Admitting Unavailabl e KENTRELL, DR WANDY Silva Consulting Unavailabl e LEAHY ., YOLANDA Consulting Unavailable JONAS SMITH Attending Unavailable Allergies Allergy Classification Reported Allergen(s) Allergy Type Date of Onset Reaction(s) Facility (2 sources) Escitalopram Drug Allergy 11-12-2021 [facility] Repository Problems Active Problems Problem Classification Problem [...] 06-06-2022 Episodic Other aftercare (1 source) Other [facility] (current) drug therapy; Translations: [OTH DETENTION CURRENT DRUG THERAPY] Onset: 01-26-2022 Episodic Other aftercare (1 source) penitentiary (current) use of anticoagulants; 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 Sara Matos HEMOGRAM AND PLATELon 2022 Hematocrit (Bld) [Volume fraction] 33.8 % Critically low 36.0-48.0 [facility] Comment on above: Performed By: #### T SH #### [facility] Laboratory [address] [place] [address] Dr. Sara Matos Hemoglobin (Bld) [Mass/Vol] 11.1 g/dL Critically low 12.0-16.0 [facility] Comment on above: Performed By: #### T SH #### [facility] Laboratory [address] [place] [address] Dr. Sara Matos MCH (RBC) [Entitic mass] 28.6 pg Normal 26.7-34.0 [facility] Comment on above: Performed By: #### T SH #### [facility] Laboratory [address] [place] [address] Dr. Sara Matos MCHC (RBC) [Mass/Vol] 32.8 g/dL Normal 29.9-35.2 [facility] Comment on above: Performed By: #### T SH #### [facility] Laboratory [address] [place] [address] Dr. Sara Matos MCV (RBC) [Entitic vol] 87.1 fL Normal 81.0-99.0 [facility] Comment on above: Performed By: #### T SH #### [facility] Laboratory [address] [place] [address] Dr. Sara Matos PLT 188 103/ul Normal 150-450 [facility] Comment on above: Performed By: #### T SH #### [facility] Laboratory [address] [place] [address] Dr. Sara Matos RBC 3.88 106/ul Critically low 4.20-5.40 [facility] Comment on above: Performed By: #### T SH #### [facility] [address] [place] [address] Dr. Sara Matos WBC 9.8 103/ul Normal 4.0-11.0 [facility] Comment on above: Performed By: #### T SH #### [facility] Laboratory [address] [place] [address] Dr. Sara Matos US PREG ANATOMY SINGLEon [...] LA O Date: 2022-12-02 15:25 Normal [facility] HEP B SURFACE ANTIGEN SCREEN on 11-18-2022 HBsAg Screen Negative Normal Negative [facility] Comment on above: Performed By: #### JAIME GODWIN #### [facility] [address] [place] [address] Dr. Sara Matos HEPATITIS C VIRUS AB W/ REFL EX QUANTon 11-18-2022 HCV AB Non-Reactive Normal Non Reactive [facility] Comment on above: Performed By: #### JAIME GODWIN #### [facility] [address] [place] [address] Dr. Sara Matos Interpretation: Comment Normal [facility] Comment on above: Result Comment: Not infected with HCV unless early or acute infection is suspected (which may be delayed in an immunocompromised individual), or other evidence exists to indicate HCV infection. Performed By: #### E JAIME SINHA #### [facility] [address] [place] [address] Dr. Sara Matos HIV 1 AND 2 WITH REFLEXon HIV Screen 4th Generation wRfx Non-Reactive Normal Non Reactive [facility] Comment on above: Result Comment: HIV Negative HIV-1/HIV-2 antibodies and HIV-1 p24 antigen were NOT detected. There is no laboratory evidence of HIV infection. Performed By: #### E JAIME SINHA #### [facility] [address] [place] [address] Dr. Sara Matos RPR QUANTon 11-18-2022 Rapid Plasma Reagin, Quant Non-Reactive Normal NonRea<1:1 [facility] Comment on above: Result Comment: Plea se Note: This test does not meet current guidelines for screening and diagnosis of syphilis. This test is intended for following treatment response in patients being treated for syphilis infection. To screen for syphilis infection, a reflex cascade that includes both RPR and a treponema-specific assay should be utilized, such as Treponema pallidum (Syphilis) Screening Falls (257075) or Rapid Plasma Reagin (RPR) Test With Reflex to Quantitative RPR and Confirmatory Treponema pallidum Antibodies (623514). Performed By: #### T SH #### [facility] [address] [place] [address] Dr. Sara Matos RUBELLA AB IGGon 11-18-2022 Rubella Antibodies, IgG 3.67 index Normal Immune >0.99 [facility] Comment on above: Result Comment: Non- immune <0.90 Equivocal 0.90 - 0.99 Immune >0.99 Performed By: #### T SH #### [facility] [address] [place] [address] Dr. Sara Matos BOX TEST SENT OUTon 11-18-19 SENT TO REF LAB 11/17/2022 Normal [facility] Comment on above: Performed By: #### T SH #### [facility] [address] [place] [address] Dr. Sara Matos CBC AUTO DIFFon 11-17-2022 BASO # 0.0 103/ul Normal 0.0-0.1 [facility] Comment on above: Performed By: #### JAIME GODWIN #### [facility] Laboratory [address] [place] [address] Dr. Sara Matos Basophils/100 WBC (Bld) 0.4 % Normal 0.2-2.0 [facility] Comment on above: Performed By: #### KACY GODWINRO #### [facility] Laboratory [address] [place] [address] Dr. Sara Matos EO # 0.1 103/ul Normal 0.0-0.7 [facility] Comment on above: Performed By: #### JAIME GODWIN #### [facility] [address] [place] [address] Dr. Sara aMtos Eosinophils/100 WBC (Bld) 1.3 % Normal 0.9-7.0 [facility] Comment on above: Performed By: #### JAIME GODWIN #### [facility] Laboratory [address] [place] [address] Dr. Sara Matos Erythrocyte distribution width (RBC) [Ratio] 12.3 % Normal 11.0-15.0 [facility] Comment on above: Performed By: #### KACY GODWINRO #### [facility] [address] [place] [address] Dr. Sara Matos Hematocrit (Bld) [Volume fraction] 33.6 % Critically low 36.0-48.0 [facility] Comment on above: Performed By: #### KACY GODWINRO #### [facility] [address] [place] [address] Dr. Sara Matos Hemoglobin (Bld) [Mass/Vol] 11.3 g/dL Critically low 12.0-16.0 [facility] Comment on above: Performed By: #### JAIME GODWIN #### [facility] Laboratory [address] [address] [address] Sara Matos IG # 0.04 10e3/ul Critically high 0.00-0.03 [facility] Comment on above: Performed By: #### E RUR, UMICRO #### [facility] [address] [address] [address] Sara Matos IG % 0.4 % Normal 0.0-0.5 [facility] Comment on above: Performed By: #### E RUR, UMICRO #### [facility] Laboratory [address] [place] [address] Dr. Sara Matos LYMPH # 1.7 103/ul Normal 1.2-3.8 [facility] Comment on above: Performed By: #### E RUR, UMICRO #### [facility] Laboratory [address] [place] [address] Dr. Sara Matos Lymphocytes/100 WBC (Bld) 16.7 % Critically low 20.5-60.0 [facility] Comment on above: Performed By: #### E LONDONR, UMICRO #### [facility] Laboratory [address] [place] [address] Dr. Sara Matos MANUAL DIFF REQ NO Normal [facility] Comment on above: Performed By: #### E LONDONR, UMICRO #### [facility] Laboratory [address] [place] [address] Dr. Sara Matos MCH (RBC) [Entitic mass] 28.8 pg Normal 26.7-34.0 [facility] Comment on above: Performed By: #### E RUR, UMICRO #### [facility] [address] [place] [address] Dr. Sara Matos MCHC (RBC) [Mass/Vol] 33.6 g/dL Normal 29.9-35.2 [facility] Comment on above: Performed By: #### E RUR, UMICRO #### [facility] [address] [place] [address] Dr. Sara Matos MCV (RBC) [Entitic vol] 85.5 fL Normal 81.0-99.0 [facility] Comment on above: Performed By: #### KACY GODWINRO #### [facility] Laboratory [address] [place] [address] Dr. Sara Matos MONO # 0.6 103/ul Normal 0.3-0.8 [facility] Comment on above: Performed By: #### KACY GODWINRO #### [facility] Laboratory [address] [place] [address] Dr. Sara Matos Monocytes/100 WBC (Bld) 5.9 % Normal 1.7-12.0 [facility] Comment on above: Performed By: #### KACY GODWINRO #### [facility] Laboratory [address] [place] [address] Dr. Sara Matos NEUT # 7.7 103/ul Critically high 1.4-6.5 [facility] Comment on above: Performed By: #### KACY GODWINRO #### [facility] Laboratory [address] [place] [address] Dr. Sara Matos Neutrophils/100 WBC (Bld) 75.3 % Critically high 43.0-75.0 [facility] Comment on above: Performed By: #### KACY GODWINRO #### [facility] [address] [place] [address] Dr. Sara Matos Platelet mean volume (Bld) [Entitic vol] 11.2 fL Normal 9.5-13.5 [facility] Comment on above: Performed By: #### KACY GODWINRO #### [facility] [address] [place] [address] Dr. Sara Matos PLT 217 103/ul Normal 150-450 [facility] Comment on above: Performed By: #### KACY GODWINRO #### [facility] [address] [place] [address] Dr. Sara Matos RBC 3.93 106/ul Critically low 4.20-5.40 [facility] Comment on above: Performed By: #### KACY GODWINRO #### [facility] [address] [place] [address] Dr. Sara Matos WBC 10.2 103/ul Normal 4.0-11.0 [facility] Comment on above: Performed By: #### JAIME GODWIN #### [facility] [address] [place] [address] Dr. Sara Matos CULTURE URINEon 11-17-2022 CULTURE URINE Culture Observations : HEAVY GROWTH OF MIXED GENITAL JP. NO POTENTIAL PATHOGENS SEEN. Normal [facility] Comment on above: Performed By: #### JAIME GODWIN #### [facility] Laboratory [address] [address] [address] Sara Matos DRUG SCREEN RAPID (URINE)on 11-17-2022 AMP Negative Normal NEGATIVE [facility] Comment on above: Performed By: #### P REGU, DRUGRPD #### [facility] [address] [place] [address] Dr. Sara Matos BAR Negative Normal NEGATIVE [facility] Comment on above: Performed By: #### P REGU, DRUGRPD #### [facility] [address] [place] [address] Dr. Sara Matos BUP Negative Normal NEGATIVE [facility] Comment on above: Performed By: #### P REGU, DRUGRPD #### [facility] Laboratory [address] [place] [address] Dr. Sara Matos BZO Negative Normal NEGATIVE [facility] Comment on above: Performed By: #### P REGU, DRUGRPD #### [facility] Laboratory [address] [place] [address] Dr. Sara Matos COLLEEN Negative Normal NEGATIVE [facility] Comment on above: Performed By: #### P REGU, DRUGRPD #### [facility] [address] [place] [address] Dr. Sara Matos CUT-OFFS SEE BELOW Normal [facility] Comment on above: Result Comment: AMP [...] Performed By: #### P REGU, DRUGRPD #### [facility] [address] [place] [address] Dr. Sara Matos DRUG CUT HEADER DRUG CLASS TEST SYSTEM CUT-OFF CONCENTRATIONS ARE FOLLOWS: Normal [facility] Comment on above: Performed By: #### P REGU, DRUGRPD #### [facility] Laboratory [address] [place] [address] Dr. Sara Matos mAMP Negative Normal NEGATIVE [facility] Comment on above: Performed By: #### P REGU, DRUGRPD #### [facility] [address] [place] [address] Dr. Sara Matos MTD Negative Normal NEGATIVE [facility] Comment on above: Performed By: #### P REGU, DRUGRPD #### [facility] [address] [place] [address] Dr. Sara Matos OPI Negative Normal NEGATIVE [facility] Comment on above: Performed By: #### P REGU, DRUGRPD #### [facility] [address] [place] [address] Dr. Sara Matos OXY Negative Normal NEGATIVE [facility] Comment on above: Performed By: #### P REGU, DRUGRPD #### [facility] [address] [place] [address] Dr. Sara Matos PCP Negative Normal NEGATIVE [facility] Comment on above: Performed By: #### P REGU, DRUGRPD #### [facility] [address] [place] [address] Dr. Sara Matos PPX Negative Normal NEGATIVE [facility] Comment on above: Performed By: #### P REGU, DRUGRPD #### [facility] [address] [place] [address] Dr. Sara Matos TCA Negative Normal NEGATIVE [facility] Comment on above: Performed By: #### P REGU, DRUGRPD #### [facility] [address] [address] [address] Sara Matos THC Negative Normal NEGATIVE [facility] Comment on above: Performed By: #### P URIEL DRUGRPD #### [facility] [address] [address] [address] Sara Matos GLYCOHEMOGLOBIN A1Con 2022 ADA RECOMMENDATION SEE BELOW Normal [facility] Comment on above: Result Comment: ADA RECOMMENDED LIMIT 4.0 - 6.0 ADA THERAPEUTIC TARGET < 7.0 ACTION SUGGESTED > 7.0 Performed By: #### A 1C #### [facility] [address] [place] [address] Dr. Sara Matos Glucose [Mass/Vol] 85 mg/dL Normal [facility] Comment on above: Performed By: #### A 1C #### [facility] [address] [place] [address] Dr. Sara Matos HbA1c (Bld) [Mass fraction] 4.6 % Normal 4.5-6.2 [facility] Comment on above: Performed By: #### A 1C #### [facility] [address] [place] [address] Dr. Sara Matos URon 11-17-2022 , QUAL Positive Abnormal NEGATIVE [facility] Comment on above: Performed By: #### Sarah TREVINO DRUGRPD #### [facility] [address] [place] [address] Dr. Sara Matos TYPE AND SCREENon 11-17-2022 TYPE AND SCREEN Negative Normal [facility] Comment on above: Performed By: #### JAIME GODWIN #### [facility] [address] [place] [address] Dr. Sara Matos US PREG DATING >[id number] [...] LA O Date: 2022-09-07 10:38 Normal [facility] CHLAMYDIA/GONOCOCCUS DEENA (SW AB/URINE/PAPon 06-10-2022 Chlamydia trachomatis, DEENA Negative Normal Negative [facility] Comment on above: Performed By: #### T SH #### [facility] [address] [place] [address] Dr. Sara Matos Neisseria gonorrhoeae, DEENA Negative Normal Negative [facility] Comment on above: Performed By: #### T SH #### [facility] [address] [place] [address] Dr. Sara Matos GENITAL CULTUREon 06-09-2022 Genital Culture, Routine NOBACT Normal [facility] Comment on above: Result Comment: Test [...] specimen.) Performed By: #### JAIME GODWIN #### [facility] [address] [place] [address] Dr. Sara Matos ER URINE PROFILEon Bilirubin Ql (U) Negative Normal NEGATIVE [facility] Comment on above: Performed By: #### JAIME GODWIN #### [facility] [address] [place] [address] Dr. Sara Matos Clarity (U) CLEAR Normal CLEAR [facility] Comment on above: Performed By: #### KACY GODWINRO #### [facility] [address] [place] [address] Dr. Sara Matos Color (U) LT. YELLOW Normal YELLOW [facility] Comment on above: Performed By: #### KACY GODWINRO #### [facility] [address] [place] [address] Dr. Sara BUCKNER A micrscopic examination will be performed if indicated. Normal [facility] Comment on above: Performed By: #### KACY GODWINRO #### [facility] Laboratory [address] [place] [address] Dr. Sara Matos Glucose Ql (U) Negative Normal NEGATIVE [facility] Comment on above: Performed By: #### KACY GODWINRO #### [facility] [address] [place] [address] Dr. Sara Matos Hemoglobin Ql (U) Negative Normal NEGATIVE [facility] Comment on above: Performed By: #### KACY GODWINRO #### [facility] [address] [place] [address] Dr. Sara Matos Ketones Ql (U) Negative Normal NEGATIVE [facility] Comment on above: Performed By: #### FLORENTINO GODWINICRO #### [facility] [address] [place] [address] Dr. Sara Matos LEUKOCYTES TRACE Abnormal NEGATIVE [facility] Comment on above: Performed By: #### KACY GODWINRO #### [facility] [address] [place] [address] Dr. Sara Matos Nitrite Ql (U) Negative Normal NEGATIVE [facility] Comment on above: Performed By: #### Mery SINHA UMICRO #### [facility] [address] [place] [address] Dr. Sara Matos pH (U) 6.0 [pH] Normal 5-9 [facility] Comment on above: Performed By: #### JAIME GODWIN #### [facility] Laboratory [address] [place] [address] Dr. Sara Matos SPEC GRAVITY 1.015 Normal 1.005-<=1.025 [facility] Comment on above: Performed By: #### E BHARATH, UMICRO #### [facility] [address] [place] [address] Dr. Sara Matos UA PROTEIN Negative Normal NEGATIVE/ TRACE [facility] Comment on above: Performed By: #### E BHARATH UMICRO #### [facility] [address] [place] [address] Dr. Sara Matos UR MICRO IND INDICATED Normal [facility] Comment on above: Performed By: #### E BHARATH UMICRO #### [facility] [address] [place] [address] Dr. Sara Matos Urobilinogen Qn (U) 0.2 {Ana'U}/dL Normal 0.2 - 1. 0 [facility] Comment on above: Performed By: #### Mery SINHA UMICRO #### [facility] [address] [place] [address] Dr. Sara Matos URon 06-06-2022 , QUAL Negative Normal NEGATIVE [facility] Comment on above: Performed By: #### P REGU #### [facility] [address] [place] [address] Dr. Sara Matos URINE MICROSCOPIC ONLYon BACTERIA NONE SEEN Normal NONE SEEN [facility] Comment on above: Performed By: #### Mery SINHA UMICRO #### [facility] [address] [place] [address] Dr. Sara Matos Bacteria identified Cx Nom (U) NOT INDICATED Normal [facility] Comment on above: Performed By: #### E BHARATH UMICRO #### [facility] [address] [place] [address] Dr. Sara Matos CAST NONE SEEN Normal NONE SEEN [facility] Comment on above: Performed By: #### Mery SINHA UMICRO #### [facility] [address] [place] [address] Dr. Sara Matos Crystals LM Nom (Urine sed) NONE SEEN Normal NONE SEEN [facility] Comment on above: Performed By: #### KACY GODWINRO #### [facility] [address] [place] [address] Dr. Sara Matos Epithelial cells LM Ql (Urine sed) FEW Abnormal NONE SEEN /RARE [facility] Comment on above: Performed By: #### KACY GODWINRO #### [facility] Laboratory [address] [place] [address] Dr. Sara Matos MUCOUS NONE SEEN Normal NONE SEEN [facility] Comment on above: Performed By: #### KACY GODWINRO #### [facility] Laboratory [address] [place] [address] Dr. Sara Matos RBC NONE SEEN Abnormal 0-2 [facility] Comment on above: Performed By: #### KACY GODWINRO #### [facility] Laboratory [address] [place] [address] Dr. Sara Matos WBC 0-2 Abnormal NONE SEEN [facility] Comment on above: Performed By: #### KACY GODWINRO #### [facility] Laboratory [address] [place] [address] Dr. Sara Matos WET PREPon 06-06-2022 CLUE CELLS NONE SEEN Normal NONE SEEN [facility] Comment on above: Performed By: #### T SH #### [facility] Laboratory [address] [place] [address] Dr. Sara Matos FUNGAL ELEMENTS NONE SEEN Normal NONE SEEN [facility] Comment on above: Performed By: #### T SH #### [facility] Laboratory [address] [place] [address] Dr. Sara Matos RBC -WET PREP NONE SEEN Normal NONE SEEN The [facility] Comment on above: Performed By: #### T SH #### [facility] Laboratory [address] [place] [address] Dr. Sara Matos TRICHOMONAS NONE SEEN Normal NONE SEEN [facility] Comment on above: Performed By: #### T SH #### [facility] Laboratory [address] [address] [address] Sara Matos WBC- WET PREP FEW Abnormal NONE SEEN The [facility] Comment on above: Performed By: #### T SH #### [facility] Laboratory [address] [address] [address] Sara Matos WET PREP BACTERIA NONE SEEN Normal NONE SEEN [facility] Comment on above: Performed By: #### T SH #### [facility] Laboratory [address] [address] [address] Sara Matos Abstracton 04-25-2022 Abstract [id number] Astrid Montague 1995 F Date Provider Department Center 04/25/2022 LILIAN AGUIRRE [facility] Family History Problem Relation Age of Onset Heart attack Maternal Grandmother Coronary artery disease Maternal Grandmother Family Status - Relation Status Age at Maternal Grandmother Paternal Grandmother Normal [facility] Abstracton 04-22-2022 Abstract [id number] Astrid Montague 1995 Date Provider Department Center 04/22/2022 YURIDIA CARO [facility] Family History Problem Relation Age of Onset Heart attack Paternal Grandmother Family Status - Relation Status Age at Paternal Grandmother Normal [facility] US GUY DOP LEG LTon 04-01-20 US [...] LA O Date: 2022-04-01 17:05 Normal [facility] METANEPHRINES PLASMA FREEon 02-04-2022 Metanephrine, Pl 13.7 pg/mL Normal 0.0-88.0 [facility] Comment on above: Performed By: #### P REGU, DRUGRPD #### [facility] Laboratory [address] [address] [address] Sara Matos Normetanephrine, Pl 45.6 pg/mL Normal 0.0-210.1 [facility] Comment on above: Performed By: #### P URIEL DRUGRPHumphrey #### [facility] Laboratory [address] [place] [address] Dr. Sara Matos CARDIAC ANTONY ADMITon 022 CK [Catalytic activity/Vol] 67 U/L Normal 26-192 [facility] Comment on above: Performed By: #### T SH #### [facility] Laboratory [address] [place] [address] Dr. Sara Matos CK.MB [Mass/Vol] 0.99 ng/mL Normal <=3.60 [facility] Comment on above: Performed By: #### T SH #### [facility] Laboratory [address] [place] [address] Dr. Sara Matos HSTROP 4.7 pg/mL Normal 4.0-51.3 [facility] Comment on above: Result Comment: CUT- OFF POINTS HAVE BEEN ESTABLISHED BASED ON THE FOURTH UNIVERSAL DEFINITIONS OF MYOCARDIAL INFARCTION. THE UPPER REFERENCE LIMIT (URL) OF TROPONIN, DEFINED THE 99TH PERCENTILE OF cTnI DISTRIBUTION IN A REFERENCE POPULATION, HAS BEEN CONFIRMED THE DECISION THRESHOLD FOR VA DIAGNOSIS. Performed By: #### T SH #### [facility] Laboratory [address] [place] [address] Dr. Sara Matos ELENA 34 ng/mL Normal 9-82 [facility] Comment on above: Performed By: #### T SH #### [facility] Laboratory [address] [place] [address] Dr. Sara Matos CBC AUTO DIFFon 01-30-2022 BASO # 0.1 103/ul Normal 0.0-0.1 [facility] Comment on above: Performed By: #### T SH #### [facility] Laboratory [address] [place] [address] Dr. Sara Matos Basophils/100 WBC (Bld) 0.8 % Normal 0.2-2.0 [facility] Comment on above: Performed By: #### T SH #### [facility] Laboratory [address] [place] [address] Dr. Sara Matos EO # 0.1 103/ul Normal 0.0-0.7 [facility] Comment on above: Performed By: #### T SH #### [facility] Laboratory [address] [place] [address] Dr. Sara Matos Eosinophils/100 WBC (Bld) 0.6 % Critically low 0.9-7.0 [facility] Comment on above: Performed By: #### T SH #### [facility] Laboratory [address] [place] [address] Dr. Sara Matos Erythrocyte distribution width (RBC) [Ratio] 13.6 % Normal 11.0-15.0 [facility] Comment on above: Performed By: #### T SH #### [facility] Laboratory [address] [place] [address] Dr. Sara Matos Hematocrit (Bld) [Volume fraction] 40.4 % Normal 36.0-48.0 [facility] Comment on above: Performed By: #### T SH #### [facility] Laboratory [address] [place] [address] Dr. Sara Matos Hemoglobin (Bld) [Mass/Vol] 13.0 g/dL Normal 12.0-16.0 [facility] Comment on above: Performed By: #### T SH #### [facility] Laboratory [address] [place] [address] Dr. Sara Matos IG # 0.03 10e3/ul Normal 0.00-0.03 [facility] Comment on above: Performed By: #### T SH #### [facility] Laboratory [address] [place] [address] Dr. Sara Matos IG % 0.3 % Normal 0.0-0.5 [facility] Comment on above: Performed By: #### T SH #### [facility] Laboratory [address] [place] [address] Dr. Sara Matos LYMPH # 2.6 103/ul Normal 1.2-3.8 [facility] Comment on above: Performed By: #### T SH #### [facility] Laboratory [address] [place] [address] Dr. Sara Matos Lymphocytes/100 WBC (Bld) 26.5 % Normal 20.5-60.0 [facility] Comment on above: Performed By: #### T SH #### [facility] Laboratory [address] [place] [address] Dr. Sara Matos MANUAL DIFF REQ NO Normal [facility] Comment on above: Performed By: #### T SH #### [facility] Laboratory [address] [place] [address] Dr. Sara Matos MCH (RBC) [Entitic mass] 26.9 pg Normal 26.7-34.0 [facility] Comment on above: Performed By: #### T SH #### [facility] Laboratory [address] [place] [address] Dr. Sara Matos MCHC (RBC) [Mass/Vol] 32.2 g/dL Normal 29.9-35.2 [facility] Comment on above: Performed By: #### T SH #### [facility] Laboratory [address] [place] [address] Dr. Sara Matos MCV (RBC) [Entitic vol] 83.6 fL Normal 81.0-99.0 [facility] Comment on above: Performed By: #### T SH #### [facility] Laboratory [address] [place] [address] Dr. Sara Matos MONO # 0.6 103/ul Normal 0.3-0.8 [facility] Comment on above: Performed By: #### T SH #### [facility] Laboratory [address] [place] [address] Dr. Sara Matos Monocytes/100 WBC (Bld) 6.4 % Normal 1.7-12.0 [facility] Comment on above: Performed By: #### T SH #### [facility] Laboratory [address] [place] [address] Dr. Sara Matos NEUT # 6.3 103/ul Normal 1.4-6.5 [facility] Comment on above: Performed By: #### T SH #### [facility] Laboratory [address] [place] [address] Dr. Sara Matos Neutrophils/100 WBC (Bld) 65.4 % Normal 43.0-75.0 [facility] Comment on above: Performed By: #### T SH #### [facility] Laboratory [address] [place] [address] Dr. Sara Matos Platelet mean volume (Bld) [Entitic vol] 11.8 fL Normal 9.5-13.5 [facility] Comment on above: Performed By: #### T SH #### [facility] Laboratory [address] [place] [address] Dr. Sara Matos PLT 218 103/ul Normal 150-450 [facility] Comment on above: Performed By: #### T SH #### [facility] [address] [place] [address] Dr. Sara Matos RBC 4.83 106/ul Normal 4.20-5.40 [facility] Comment on above: Performed By: #### T SH #### [facility] [address] [place] [address] Dr. Sara Matos WBC 9.6 103/ul Normal 4.0-11.0 [facility] Comment on above: Performed By: #### T SH #### [facility] Laboratory [address] [place] [address] Dr. Sara Matos ER URINE PROFILEon 2 Bilirubin Ql (U) Negative Normal NEGATIVE [facility] Comment on above: Performed By: #### KACY GODWINRO #### [facility] Laboratory [address] [place] [address] Dr. Sara Matos Clarity (U) CLEAR Normal CLEAR [facility] Comment on above: Performed By: #### KACY GODWINRO #### [facility] Laboratory [address] [place] [address] Dr. Sara Matos Color (U) LT. YELLOW Normal YELLOW [facility] Comment on above: Performed By: #### KACY GODWINRO #### [facility] Laboratory [address] [place] [address] Dr. Sara BUCKNER A micrscopic examination will be performed if indicated. Normal [facility] Comment on above: Performed By: #### KACY GODWINRO #### [facility] Laboratory [address] [place] [address] Dr. Sara Matos Glucose Ql (U) Negative Normal NEGATIVE [facility] Comment on above: Performed By: #### Mery SINHA UMICRO #### [facility] Laboratory [address] [place] [address] Dr. Sara Matos Hemoglobin Ql (U) LARGE Abnormal NEGATIVE [facility] Comment on above: Performed By: #### Mery SINHA UMICRO #### [facility] Laboratory [address] [place] [address] Dr. Sara Matos Ketones Ql (U) Negative Normal NEGATIVE The [facility] Comment on above: Performed By: #### Mery SINHA UMICRO #### [facility] Laboratory [address] [place] [address] Dr. Sara Matos LEUKOCYTES Negative Normal NEGATIVE [facility] Comment on above: Performed By: #### Mery SINHA UMICRO #### [facility] [address] [place] [address] Dr. Sara Matos Nitrite Ql (U) Negative Normal NEGATIVE [facility] Comment on above: Performed By: #### KACY GODWINRO #### [facility] Laboratory [address] [place] [address] Dr. Sara Matos pH (U) 6.0 [pH] Normal 5-9 [facility] Comment on above: Performed By: #### Mery SINHA UMICRO #### [facility] Laboratory [address] [place] [address] Dr. Sara Matos SPEC GRAVITY <=1.005 Abnormal 1.005-<=1.025 [facility] Comment on above: Performed By: #### Mery SINHA UMICRO #### [facility] Laboratory [address] [place] [address] Dr. Sara Matos UA PROTEIN Negative Normal NEGATIVE/ TRACE [facility] Comment on above: Performed By: #### Mery SINHA UMICRO #### [facility] Laboratory [address] [place] [address] Dr. Sara Matos UR MICRO IND INDICATED Normal [facility] Comment on above: Performed By: #### JAIME GODWIN #### [facility] [address] [place] [address] Dr. Sara Matos Urobilinogen Qn (U) 0.2 {Ana'U}/dL Normal 0.2 - 1. 0 [facility] Comment on above: Performed By: #### JAIME GODWIN #### [facility] Laboratory [address] [place] [address] Dr. Sara Matos PREG HCG QUALon 01-30-2022 , QUAL Negative Normal NEGATIVE [facility] Comment on above: Performed By: #### JAIME GODWIN #### [facility] Laboratory [address] [place] [address] Dr. Saar Matos PROF 14(COMP METB)on 022 Albumin [Mass/Vol] 4.3 g/dL Normal 3.4-5.0 [facility] Comment on above: Performed By: #### T SH #### [facility] Laboratory [address] [place] [address] Dr. Sara Matos Albumin/Globulin [Mass ratio] 1.2 {ratio} Normal [facility] Comment on above: Performed By: #### T SH #### [facility] Laboratory [address] [place] [address] Dr. Sara Matos ALP [Catalytic activity/Vol] 63 U/L Normal 46-116 [facility] Comment on above: Performed By: #### T SH #### [facility] Laboratory [address] [place] [address] Dr. Sara Matos ALT [Catalytic activity/Vol] 35 U/L Normal 14-59 [facility] Comment on above: Performed By: #### T SH #### [facility] Laboratory [address] [place] [address] Dr. Sara Matos Anion gap [Moles/Vol] 9.7 mmol/L Normal [facility] Comment on above: Performed By: #### T SH #### [facility] Laboratory [address] [place] [address] Dr. Sara Matos AST [Catalytic activity/Vol] 19 U/L Normal 15-37 [facility] Comment on above: Performed By: #### T SH #### [facility] Laboratory [address] [address] [address] Sara Matos Bilirubin [Mass/Vol] 0.4 mg/dL Normal 0.2-1.0 [facility] Comment on above: Performed By: #### T SH #### [facility] [address] [address] [address] Sara Matos Calcium [Mass/Vol] 9.3 mg/dL Normal 8.5-10.1 [facility] Comment on above: Performed By: #### T SH #### [facility] Laboratory [address] [place] [address] Dr. Sara Matos Chloride [Moles/Vol] 101 mmol/L Normal 98-107 [facility] Comment on above: Performed By: #### T SH #### [facility] Laboratory [address] [place] [address] Dr. Sara Matos CO2 [Moles/Vol] 27.8 mmol/L Normal 21.0-32.0 [facility] Comment on above: Performed By: #### T SH #### [facility] Laboratory [address] [place] [address] Dr. Sara Matos Creatinine [Mass/Vol] 0.78 mg/dL Normal 0.55-1.02 [facility] Comment on above: Performed By: #### T SH #### [facility] Laboratory [address] [place] [address] Dr. Sara Matos EGFR-AF IRANIAN >60 Normal >=60 [facility] Comment on above: Performed By: #### T SH #### [facility] Laboratory [address] [place] [address] Dr. Sara Matos EGFR-NON AF IRANIAN >60 Normal >=60 [facility] Comment on above: Performed By: #### T SH #### [facility] [address] [place] [address] Dr. Sara Matos Globulin (S) [Mass/Vol] 3.5 g/dL Normal [facility] Comment on above: Performed By: #### T SH #### [facility] [address] [address] [address] Sara Matos Glucose [Mass/Vol] 89 mg/dL Normal 74-106 [facility] Comment on above: Performed By: #### T SH #### [facility] [address] [address] [address] Sara Matos Potassium [Moles/Vol] 3.5 mmol/L Normal 3.5-5.1 [facility] Comment on above: Performed By: #### T SH #### [facility] Laboratory [address] [place] [address] Dr. Sara Matos Protein [Mass/Vol] 7.8 g/dL Normal 6.4-8.2 [facility] Comment on above: Performed By: #### T SH #### [facility] [address] [place] [address] Dr. Sara Matos Sodium [Moles/Vol] 135 mmol/L Critically low 136-[address] [facility] Comment on above: Performed By: #### T SH #### [facility] [address] [place] [address] Dr. Sara Matos Urea nitrogen [Mass/Vol] 6.0 mg/dL Critically low 7.0-18.0 [facility] Comment on above: Performed By: #### T SH #### [facility] [address] [place] [address] Dr. Sara Matos Urea nitrogen/Creatinine [Mass ratio] 7.7 mg/mg Normal [facility] Comment on above: Performed By: #### T SH #### [facility] [address] [place] [address] Dr. Sara Matos URINE MICROSCOPIC ONLYon BACTERIA NONE SEEN Normal NONE SEEN [facility] Comment on above: Performed By: #### JAIME GODWIN #### [facility] [address] [place] [address] Dr. Sara Matos Bacteria identified Cx Nom (U) NOT INDICATED Normal [facility] Comment on above: Performed By: #### JAIME GODWIN #### [facility] [address] [place] [address] Dr. Sara Matos CAST NONE SEEN Normal NONE SEEN [facility] Comment on above: Performed By: #### Mery SINHA UMICRO #### [facility] Laboratory [address] [place] [address] Dr. Sara Matos Crystals LM Nom (Urine sed) NONE SEEN Normal NONE SEEN [facility] Comment on above: Performed By: #### Mery SINHA UMICRO #### [facility] Laboratory [address] [place] [address] Dr. Sara Matos Epithelial cells LM Ql (Urine sed) RARE Normal NONE SEEN /RARE [facility] Comment on above: Performed By: #### Mery SINHA UMICRO #### [facility] Laboratory [address] [place] [address] Dr. Sara Matos MUCOUS NONE SEEN Normal NONE SEEN [facility] Comment on above: Performed By: #### FLORENTINO GODWINICRO #### [facility] Laboratory [address] [place] [address] Dr. Sara Matos RBC 0-2 Normal 0-2 [facility] Comment on above: Performed By: #### KACY GODWINRO #### [facility] [address] [place] [address] Dr. Sara Matos WBC 0-2 Abnormal NONE SEEN [facility] Comment on above: Performed By: #### Mery SINHA UMICRO #### [facility] Laboratory [address] [place] [address] Dr. Sara Matos CBC AUTO DIFFon 01-24-2022 BASO # 0.1 103/ul Normal 0.0-0.1 [facility] Comment on above: Performed By: #### Mery SINHA UMICRO #### [facility] Laboratory [address] [place] [address] Dr. Sara Matos Basophils/100 WBC (Bld) 0.5 % Normal 0.2-2.0 [facility] Comment on above: Performed By: #### Mery SINHA UMICRO #### [facility] Laboratory [address] [place] [address] Dr. Sara Matos EO # 0.0 103/ul Normal 0.0-0.7 [facility] Comment on above: Performed By: #### JAIME GODWIN #### [facility] Laboratory [address] [place] [address] Dr. Sara Matos Eosinophils/100 WBC (Bld) 0.4 % Critically low 0.9-7.0 [facility] Comment on above: Performed By: #### KACY GODWINRO #### [facility] Laboratory [address] [place] [address] Dr. Sara Matos Erythrocyte distribution width (RBC) [Ratio] 13.3 % Normal 11.0-15.0 [facility] Comment on above: Performed By: #### JAIME GODWIN #### [facility] Laboratory [address] [place] [address] Dr. Sara Matos Hematocrit (Bld) [Volume fraction] 39.4 % Normal 36.0-48.0 [facility] Comment on above: Performed By: #### KACY GODWINRO #### [facility] [address] [place] [address] Dr. Sara Matos Hemoglobin (Bld) [Mass/Vol] 12.9 g/dL Normal 12.0-16.0 [facility] Comment on above: Performed By: #### KACY GODWINRO #### [facility] Laboratory [address] [place] [address] Dr. Sara Matos IG # 0.03 10e3/ul Normal 0.00-0.03 [facility] Comment on above: Performed By: #### KACY GODWINRO #### [facility] Laboratory [address] [place] [address] Dr. Sara Matos IG % 0.3 % Normal 0.0-0.5 [facility] Comment on above: Performed By: #### KACY GODWINRO #### [facility] [address] [place] [address] Dr. Sara Matos LYMPH # 2.8 103/ul Normal 1.2-3.8 [facility] Comment on above: Performed By: #### Mery SINHA UMICRO #### [facility] Laboratory [address] [place] [address] Dr. Sara Matos Lymphocytes/100 WBC (Bld) 25.3 % Normal 20.5-60.0 [facility] Comment on above: Performed By: #### E BHARATH UMICRO #### [facility] [address] [place] [address] Dr. Sara Matos MANUAL DIFF REQ NO Normal [facility] Comment on above: Performed By: #### E RUR UMICRO #### [facility] [address] [place] [address] Dr. Sara Matos MCH (RBC) [Entitic mass] 26.5 pg Critically low 26.7-34.0 [facility] Comment on above: Performed By: #### E BHARATH UMICRO #### [facility] [address] [place] [address] Dr. Sara Matos MCHC (RBC) [Mass/Vol] 32.7 g/dL Normal 29.9-35.2 [facility] Comment on above: Performed By: #### Mery SINHA UMICRO #### [facility] [address] [place] [address] Dr. Sara Matos MCV (RBC) [Entitic vol] 80.9 fL Critically low 81.0-99.0 [facility] Comment on above: Performed By: #### Mery SINHA UMICRO #### [facility] [address] [place] [address] Dr. Sara Matos MONO # 0.8 103/ul Normal 0.3-0.8 [facility] Comment on above: Performed By: #### E BHARATH UMICRO #### [facility] [address] [place] [address] Dr. Sara Matos Monocytes/100 WBC (Bld) 6.8 % Normal 1.7-12.0 [facility] Comment on above: Performed By: #### E RULaci UMICRO #### [facility] [address] [place] [address] Dr. Sara Matos NEUT # 7.4 103/ul Critically high 1.4-6.5 [facility] Comment on above: Performed By: #### JAIME GODWIN #### [facility] [address] [place] [address] Dr. Sara Matos Neutrophils/100 WBC (Bld) 66.7 % Normal 43.0-75.0 [facility] Comment on above: Performed By: #### KACY GODWINRO #### [facility] [address] [place] [address] Dr. Sara Matos Platelet mean volume (Bld) [Entitic vol] 11.3 fL Normal 9.5-13.5 [facility] Comment on above: Performed By: #### JAIME GODWIN #### [facility] [address] [place] [address] Dr. Sara Matos PLT 281 103/ul Normal 150-450 [facility] Comment on above: Performed By: #### JAIME GODWIN #### [facility] [address] [place] [address] Dr. Sara Matos RBC 4.87 106/ul Normal 4.20-5.40 [facility] Comment on above: Performed By: #### JAIME GODWIN #### [facility] [address] [place] [address] Dr. Sara Matos WBC 11.1 103/ul Critically high 4.0-11.0 [facility] Comment on above: Performed By: #### JAIME GODWIN #### [facility] [address] [place] [address] Dr. Sara Matos MAGNESIUMon 01-24-2022 Magnesium [Mass/Vol] 2.0 mg/dL Normal 1.8-2.4 [facility] Comment on above: Performed By: #### JAIME GODWIN #### [facility] [address] [place] [address] Dr. Sara Matos T3 UPTAKEon 01-24-2022 T3U 37.0 % Normal 30.0-39.0 [facility] Comment on above: Performed By: #### T 3UP #### [facility] [address] [place] [address] Dr. Sara Matos T4on 01-24-2022 T4 [Mass/Vol] 11.60 ug/dL Normal 4.80-13.90 [facility] Comment on above: Performed By: #### T 4 #### [facility] [address] [place] [address] Dr. Sara Matos TSHon 01-24-2022 TSH 0.547 uIU/mL Normal 0.358-3.740 [facility] Comment on above: Performed By: #### T SH #### [facility] [address] [place] [address] Dr. Sara Matos TSH RANGE SEE BELOW Normal [facility] Comment on above: Result Comment: <0.3 4 UIU/ml HYPERTHYROID 0.34-5.60 UIU/ml EUTHYROID >5.60 UIU/ml HYPOTHYROID Performed By: #### T SH #### [facility] [address] [place] [address] Dr. Sara Matos CBC AUTO DIFFon 01-19-2022 BASO # 0.0 103/ul Normal 0.0-0.1 [facility] Comment on above: Performed By: #### T SH #### [facility] [address] [place] [address] Dr. Sara Matos Basophils/100 WBC (Bld) 0.5 % Normal 0.2-2.0 [facility] Comment on above: Performed By: #### T SH #### [facility] [address] [place] [address] Dr. Sara Matos EO # 0.1 103/ul Normal 0.0-0.7 [facility] Comment on above: Performed By: #### T SH #### [facility] [address] [place] [address] Dr. Sara Matos Eosinophils/100 WBC (Bld) 1.1 % Normal 0.9-7.0 [facility] Comment on above: Performed By: #### T SH #### [facility] [address] [place] [address] Dr. Sara Matos Erythrocyte distribution width (RBC) [Ratio] 13.6 % Normal 11.0-15.0 [facility] Comment on above: Performed By: #### T SH #### [facility] [address] [place] [address] Dr. Sara Matos Hematocrit (Bld) [Volume fraction] 38.4 % Normal 36.0-48.0 [facility] Comment on above: Performed By: #### T SH #### [facility] [address] [place] [address] Dr. Sara Matos Hemoglobin (Bld) [Mass/Vol] 12.5 g/dL Normal 12.0-16.0 [facility] Comment on above: Performed By: #### T SH #### [facility] [address] [place] [address] Dr. Sara Matos IG # 0.02 10e3/ul Normal 0.00-0.03 [facility] Comment on above: Performed By: #### T SH #### [facility] [address] [place] [address] Dr. Sara Matos IG % 0.2 % Normal 0.0-0.5 [facility] Comment on above: Performed By: #### T SH #### [facility] [address] [place] [address] Dr. Sara Matos LYMPH # 2.5 103/ul Normal 1.2-3.8 [facility] Comment on above: Performed By: #### T SH #### [facility] [address] [place] [address] Dr. Sara Matos Lymphocytes/100 WBC (Bld) 28.9 % Normal 20.5-60.0 [facility] Comment on above: Performed By: #### T SH #### [facility] [address] [place] [address] Dr. Sara Matos MANUAL DIFF REQ NO Normal [facility] Comment on above: Performed By: #### T SH #### [facility] [address] [place] [address] Dr. Sara Matos MCH (RBC) [Entitic mass] 26.9 pg Normal 26.7-34.0 [facility] Comment on above: Performed By: #### T SH #### [facility] [address] [place] [address] Dr. Sara Matos MCHC (RBC) [Mass/Vol] 32.6 g/dL Normal 29.9-35.2 [facility] Comment on above: Performed By: #### T SH #### [facility] [address] [place] [address] Dr. Sara Matos MCV (RBC) [Entitic vol] 82.6 fL Normal 81.0-99.0 [facility] Comment on above: Performed By: #### T SH #### [facility] [address] [place] [address] Dr. Sara Matos MONO # 0.7 103/ul Normal 0.3-0.8 [facility] Comment on above: Performed By: #### T SH #### [facility] [address] [place] [address] Dr. Sara Matos Monocytes/100 WBC (Bld) 7.5 % Normal 1.7-12.0 [facility] Comment on above: Performed By: #### T SH #### [facility] [address] [place] [address] Dr. Sara Matos NEUT # 5.4 103/ul Normal 1.4-6.5 [facility] Comment on above: Performed By: #### T SH #### [facility] [address] [place] [address] Dr. Sara Matos Neutrophils/100 WBC (Bld) 61.8 % Normal 43.0-75.0 [facility] Comment on above: Performed By: #### T SH #### [facility] [address] [place] [address] Dr. Sara Matos Platelet mean volume (Bld) [Entitic vol] 11.4 fL Normal 9.5-13.5 [facility] Comment on above: Performed By: #### T SH #### [facility] [address] [place] [address] Dr. Sara Matos PLT 233 103/ul Normal 150-450 [facility] Comment on above: Performed By: #### T SH #### [facility] [address] [place] [address] Dr. Sara Matos RBC 4.65 106/ul Normal 4.20-5.40 [facility] Comment on above: Performed By: #### T SH #### [facility] [address] [place] [address] Dr. Sara Matos WBC 8.8 103/ul Normal 4.0-11.0 [facility] Comment on above: Performed By: #### T SH #### [facility] [address] [place] [address] Dr. Sara Matos PROF 14(COMP METB)on 022 Albumin [Mass/Vol] 3.8 g/dL Normal 3.4-5.0 [facility] Comment on above: Performed By: #### JAIME GODWIN #### [facility] [address] [place] [address] Dr. Sara Matos Albumin/Globulin [Mass ratio] 1.0 {ratio} Normal [facility] Comment on above: Performed By: #### JAIME GODWIN #### [facility] [address] [place] [address] Dr. Sara Matos ALP [Catalytic activity/Vol] 65 U/L Normal 46-116 [facility] Comment on above: Performed By: #### JAIME GODWIN #### [facility] [address] [place] [address] Dr. Sara Matos ALT [Catalytic activity/Vol] 52 U/L Normal 14-59 [facility] Comment on above: Performed By: #### JAIME GODWIN #### [facility] [address] [place] [address] Dr. Sara Matos Anion gap [Moles/Vol] 12.0 mmol/L Normal [facility] Comment on above: Performed By: #### JAIME GODWIN #### [facility] [address] [place] [address] Dr. Sara Matos AST [Catalytic activity/Vol] 28 U/L Normal 15-37 [facility] Comment on above: Performed By: #### JAIME GODWIN #### [facility] [address] [place] [address] Dr. Sara Matos Bilirubin [Mass/Vol] 0.4 mg/dL Normal 0.2-1.0 [facility] Comment on above: Performed By: #### KACY GODWINRO #### [facility] [address] [place] [address] Dr. Sara Matos Calcium [Mass/Vol] 9.5 mg/dL Normal 8.5-10.1 [facility] Comment on above: Performed By: #### KACY GODWINRO #### [facility] [address] [place] [address] Dr. Sara Matos Chloride [Moles/Vol] 103 mmol/L Normal 98-107 [facility] Comment on above: Performed By: #### KACY GODWINRO #### [facility] [address] [place] [address] Dr. Sara Matos CO2 [Moles/Vol] 26.7 mmol/L Normal 21.0-32.0 [facility] Comment on above: Performed By: #### KACY GODWINRO #### [facility] [address] [place] [address] Dr. Sara Matos Creatinine [Mass/Vol] 0.69 mg/dL Normal 0.55-1.02 [facility] Comment on above: Performed By: #### KACY GODWINRO #### [facility] [address] [place] [address] Dr. Sara Matos EGFR-AF IRANIAN >60 Normal >=60 [facility] Comment on above: Performed By: #### KACY GODWINRO #### [facility] [address] [place] [address] Dr. Sara Matos EGFR-NON AF IRANIAN >60 Normal >=60 [facility] Comment on above: Performed By: #### KACY GODWINRO #### [facility] [address] [address] [address] Sara Matos Globulin (S) [Mass/Vol] 3.9 g/dL Normal [facility] Comment on above: Performed By: #### Mery SINHA, UMICRO #### [facility] [address] [address] [address] Sara Matos Glucose [Mass/Vol] 84 mg/dL Normal 74-106 [facility] Comment on above: Performed By: #### Mery SINHA, UMICRO #### [facility] [address] [address] [address] Sara Matos Potassium [Moles/Vol] 3.7 mmol/L Normal 3.5-5.1 [facility] Comment on above: Performed By: #### Mery SINHA, UMICRO #### [facility] [address] [place] [address] Dr. Sara Matos Protein [Mass/Vol] 7.7 g/dL Normal 6.4-8.2 [facility] Comment on above: Performed By: #### Mery SINHA UMICRO #### [facility] [address] [address] [address] Sara Matos Sodium [Moles/Vol] 138 mmol/L Normal 136-145 [facility] Comment on above: Performed By: #### Mery SINHA, UMICRO #### [facility] [address] [address] [address] Sara Matos Urea nitrogen [Mass/Vol] 8.0 mg/dL Normal 7.0-18.0 [facility] Comment on above: Performed By: #### Mery SINHA, UMICRO #### [facility] [address] [address] [address] Sara Matos Urea nitrogen/Creatinine [Mass ratio] 11.6 mg/mg Normal [facility] Comment on above: Performed By: #### Mery SINHA, UMICRO #### [facility] [address] [address] [address] Sara Matos TROPONIN, HIGH SENSITIVITYon 01-19-2022 HSTROP <4.0 Normal 4.0-51.3 [facility] Comment on above: Result Comment: CUT- OFF POINTS HAVE BEEN ESTABLISHED BASED ON THE FOURTH UNIVERSAL DEFINITIONS OF MYOCARDIAL INFARCTION. THE UPPER REFERENCE LIMIT (URL) OF TROPONIN, DEFINED THE 99TH PERCENTILE OF cTnI DISTRIBUTION IN A REFERENCE POPULATION, HAS BEEN CONFIRMED THE DECISION THRESHOLD FOR VA DIAGNOSIS. Performed By: #### E JAIME SINHA #### [facility] [address] [address] [address] Sara Matos XR CHEST 1 Von [...] by: DUSTY BUSCH Date: 2022-01-19 21:50 Normal [facility] US GUY DOP LEG LTon 12-26-19 [...] DE LA O Date: 2021-12-25 12:20 Normal [facility] XR CHEST 1 Von 12-25-2021 XR [...] by: PREM GUERRA Date: 2021-12-25 11:45 Normal [facility] U24 Proteinon 09-04-2017 PROTEIN:MCNC:24H:UR INE:QN: 102 mg/24hr Normal 28-141 [facility] Comment on above: Performed By: #### 2 [id number] ####[facility] [id number] [place] [address] ALBUMIN/PROTEIN.TOT AL:MFR:PT:URINE:QN: ELECTROPHORESIS 8.0 mg/dL Invalid Interpretation Code [facility] Comment on above: Result Comment: The reference range and other method performance specifications have not been established for this test; results should be integrated into the clinical context for interpretation. Performed By: #### 2 [id number], [id number] ####[facility] [id number] [place] [address] U24 Total Volon 09-04-2017 Hrs Glenna 24 hour(s) Invalid Interpretation Code [facility] Comment on above: Order Comment: Order added by Discern Expert Performed By: #### 2 [id number], [id number] ####[facility] [id number] [place] [address] SPECIMEN VOLUME:VOL:XXX:URIN E:QN: 1280 mL Invalid Interpretation Code [facility] Comment on above: Order Comment: Order added by Discern Expert Performed By: #### 2 [id number], [id number] ####[address] [address] Encounters Encounter Date Encounter Type Care Provider Facility Start: 04-11-2024 End: 04-11-2024 ambulatory JONAS LUIS Not Available Start: 03-09-2024 End: 03-09-2024 ambulatory JONAS LUIS Not Available Start: 12-10-2022 End: 12-11-[address] JONAH KING . Facility: Start: 12-02-2022 End: 12-03-[address] JONAH KING . Facility:[facility] Start: 11-17-2022 End: 11-18-[address] JONAH KING . Facility:[facility] Start: 09-07-2022 End: 09-08-[address] JONAH KING . Facility:[facility] Start: 07-20-[address] JONAS SMITH . Facili ty:[facility] Start: 06-06-2022 End: 06-06-2022 ambulatory CHANNING ELAINE Facility:[facility] Start: 04-22-2022 ambulatory CHANNING CHELE Facility: [...] Start: 12-25-2021 End: 12-25-[address] SUHAS NAVARRETE . Facility:[facility] Start: 09-04-2017 End: 09-05-2017 Ambulatory Jonah King Facility:[facility] Payers Date Payer Category Payer Unknown [id number] 2.16.84 [id number] 1995 Unknown [id number] 2.16.84 [id number] 1995 Unknown [id number] 2.16.84 [id number] 1995 Unknown [id number] 2.16.84 0.1.272697.3.579.2.593 1995 Unknown [id number] 2.16.84 0.1.663331.3.579.2.593 1995 Unknown [id number] 2.16.84 0.1.934299.3.579.2.593 1995 Unknown [id number] 2.16.84 0.1.768054.3.579.2.593 1995 Unknown [id number] 2.16.84 0.1.350372.3.579.2.593 1995 Unknown [id number] 2.16.84 0.1.824256.3.579.2.593 1995 Unknown [id number] 2.16.84 0.1.510601.3.579.2.593 1995 Unknown [id number] 2.16.84 0.1.070058.3.579.2.593 1995 Unknown [id number] 2.16.84 0.1.485824.3.579.2.593 1995 Unknown [id number] 2.16.84 0.1.487784.3.579.2.593 1995 Unknown [id number] 2.16.84 0.1.861219.3.579.2.593 1995 Unknown [id number] 2.16.84 0.1.948151.3.579.2.593 1995 Unknown [id number] 2.16.84 0.1.907736.3.579.2.1259 1995 Unknown [id number] 2.16.84 [id number] 1959 Self-pay [id number] 1959 Unknown [id number] Summary Purpose Family History No Family History Records FoundNo Family History Records FoundNo Family History Records FoundNo Family History Records Found Advance Directives No Advanced Directives Records FoundNo Advanced Directives Records FoundNo Advanced Directives Records FoundNo Advanced Directives Records Found Additional Source Comments INFORMATION SOURCE (unrecogn ized section and content) DATE CREATED AUTHOR 02/04/2018 [facility] DATE CREATED AUTHOR AUTHOR'S ORGANIZ ATION 04/25/2022 [facility] DATE CREATED AUTHOR AUTHOR'S ORGANIZ ATION 12/13/2022 [facility] DATE CREATED AUTHOR AUTHOR'S ORGANIZ ATION 04/13/2024 [facility] EPIC FOR RECORDS PERTAINING TO PATIENTS WHO ARE [...] BE BASED ON THE PRIMARY CLINICAL RECORDS. [facility] [employer] [facility]. provides no warranty or guarantee of the accuracy or completeness of information in this document.
== END 2024-04-18 10:52 | disposition home or self-care (01) ==
LOC: US 10:51
PROVIDERS: PCP Nurse Practitioner Family; Visit Provider Obstetrics & Gynecology
DX: Z36.89 Encounter for other specified antenatal screening (principal); Z3A.22 22 weeks gestation of pregnancy
CPT/HCPCS: 76805; 76817

== ENCOUNTER 2024-05-15 09:56 | Outpatient (OUT) | payer OTHER, SELFPAY ==
--- NOTE | 2024-05-15 09:58 | US_ITS ---
[address] [address] Patient Name: MICHAEL BRAXTON MRN: [id number] date: 1995 Sex: F Assigned Patient Location: [facility] Current Patient Location: [facility] Accession/Order Number: [id number] Exam Date: 05/15/2024 10:00 Report Date: 05/15/2024 10:27 At the request of: JERSEY PALMER Procedure: US OB incomplete anatomy EXAM: US OB incomplete anatomy HISTORY: Follow-up ultrasound of anatomy Z36.2 COMPARISON: Ultrasound OB anatomy 04/18/2024 TECHNIQUE: Transabdominal ultrasound evaluation. FINDINGS: Presentation: Cephalic Heart rate: 142 bpm Anatomy: Nasal bones GA: 26 weeks 4 days NATALIA: 08/17/2024 US/US OB incomplete anatomy IMPRESSION: 1. Single live intrauterine . 2. Normal appearance of the nasal bones. Electronically authenticated by: CHARLIE DE LA O Date: 05/15/2024 10:27
--- OUTSIDE RECORDS SUMMARY | 2024-05-15 10:04 | XMS_ITS | CCD ---
Author Organization [facility] CliniSyme Care Team Providers Care Veneer Sheet Repairer Name Role Phone Jonah King Unavailable Unavailable [...] Unavailable LUIS ., DR MCDANIEL Attending Unavailable [facility] Unavailable NURAARLENESWEETIE Admitting Unavailable NURASWEETIE SANDOVAL Attending Unavailable KARASIK ., DR SEAY Consulting Unavailabl e KARASIK ., DR SEAY Attending Unavailabl e KARASIK ., DR SEAY Admitting Unavailabl e CHELE, [facility] Unavailable KARASIK ., DR SEAY Consulting Unavailabl e KARASIK ., DR SEAY Attending Unavailabl e KARASIK ., DR SEAY Admitting Unavailabl e CHELEFormerly [facility] Unavailable KARASIK ., DR SEAY Attending Unavailabl e KARASIK ., DR SEAY Admitting Unavailabl e CHELE, [facility] Unavailable KARASIK ., DR SEAY Consulting Unavailabl e ZIEBER, DR CHARLIE Aguero Consulting Unavailable CHELEFormerly [facility] Unavailable REINECK, DR WANDY Silva Attending Unavailabl e KENTRELL, DR WANDY Silva Admitting Unavailabl e KENTRELL, DR WANDY Silva Consulting Unavailabl e LEAHY ., YOLANDA Consulting Unavailable JONAS SMITH Attending Unavailable Allergies Allergy Classification Reported Allergen(s) Allergy Type Date of Onset Reaction(s) Facility (2 sources) Escitalopram Drug Allergy 11-12-2021 [facility] Repository Problems Active Problems Problem Classification Problem [...] 06-06-2022 Episodic Other aftercare (1 source) 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 Sara Matos HEMOGRAM AND PLATELon 2022 Hematocrit (Bld) [Volume fraction] 33.8 % Critically low 36.0-48.0 [facility] Comment on above: Performed By: #### T SH #### [facility] [address] [place] [address] Dr. Sara Matos Hemoglobin (Bld) [Mass/Vol] 11.1 g/dL Critically low 12.0-16.0 [facility] Comment on above: Performed By: #### T SH #### [facility] [address] [place] [address] Dr. Sara Matos MCH (RBC) [Entitic mass] 28.6 pg Normal 26.7-34.0 [facility] Comment on above: Performed By: #### T SH #### [facility] [address] [place] [address] Dr. Sara Matos MCHC (RBC) [Mass/Vol] 32.8 g/dL Normal 29.9-35.2 [facility] Comment on above: Performed By: #### T SH #### [facility] [address] [place] [address] Dr. Sara Matos MCV (RBC) [Entitic vol] 87.1 fL Normal 81.0-99.0 [facility] Comment on above: Performed By: #### T SH #### [facility] [address] [place] [address] Dr. Sara Matos PLT 188 103/ul Normal 150-450 [facility] Comment on above: Performed By: #### T SH #### [facility] [address] [place] [address] Dr. Sara Matos RBC 3.88 106/ul Critically low 4.20-5.40 [facility] Comment on above: Performed By: #### T SH #### [facility] [address] [place] [address] Dr. Sara Matos WBC 9.8 103/ul Normal 4.0-11.0 [facility] Comment on above: Performed By: #### T SH #### [facility] [address] [place] [address] Dr. Sara Matos US PREG ANATOMY SINGLEon [...] LA O Date: 2022-12-02 15:25 Normal [facility] HEP B SURFACE ANTIGEN SCREEN on 11-18-2022 HBsAg Screen Negative Normal Negative [facility] Comment on above: Performed By: #### JAIME GODWIN #### [facility] [address] [place] [address] Dr. Sara Matos HEPATITIS C VIRUS AB W/ REFL EX QUANTon 11-18-2022 HCV AB Non-Reactive Normal Non Reactive [facility] Comment on above: Performed By: #### JAIME GODWIN #### [facility] [address] [place] [address] Dr. Sara Matos Interpretation: Comment Normal [facility] Comment on above: Result Comment: Not infected with HCV unless early or acute infection is suspected (which may be delayed in an immunocompromised individual), or other evidence exists to indicate HCV infection. Performed By: #### E JAIME SINHA #### [facility] [address] [place] [address] Dr. Sara Matos HIV 1 AND 2 WITH REFLEXon HIV Screen 4th Generation wRfx Non-Reactive Normal Non Reactive [facility] Comment on above: Result Comment: HIV Negative HIV-1/HIV-2 antibodies and HIV-1 p24 antigen were NOT detected. There is no laboratory evidence of HIV infection. Performed By: #### E JAIME SINHA #### [facility] [address] [place] [address] Dr. Sara Matos RPR QUANTon 11-18-2022 Rapid Plasma Reagin, Quant Non-Reactive Normal NonRea<1:1 [facility] Comment on above: Result Comment: Plea se Note: This test does not meet current guidelines for screening and diagnosis of syphilis. This test is intended for following treatment response in patients being treated for syphilis infection. To screen for syphilis infection, a reflex cascade that includes both RPR and a treponema-specific assay should be utilized, such as Treponema pallidum (Syphilis) Screening [place] (374187) or Rapid Plasma Reagin (RPR) Test With Reflex to Quantitative RPR and Confirmatory Treponema pallidum Antibodies (716807). Performed By: #### T SH #### [facility] [address] [place] [address] Dr. Sara Matos RUBELLA AB IGGon 11-18-2022 Rubella Antibodies, IgG 3.67 index Normal Immune >0.99 [facility] Comment on above: Result Comment: Non- immune <0.90 Equivocal 0.90 - 0.99 Immune >0.99 Performed By: #### T SH #### [facility] [address] [place] [address] Dr. Sara Matos BOX TEST SENT OUTon 11-18-19 SENT TO REF LAB 11/17/2022 Normal [facility] Comment on above: Performed By: #### T SH #### [facility] [address] [place] [address] Dr. Sara Matos CBC AUTO DIFFon 11-17-2022 BASO # 0.0 103/ul Normal 0.0-0.1 [facility] Comment on above: Performed By: #### JAIME GODWIN #### [facility] [address] [place] [address] Dr. Sara Matos Basophils/100 WBC (Bld) 0.4 % Normal 0.2-2.0 [facility] Comment on above: Performed By: #### KACY GODWINRO #### [facility] [address] [place] [address] Dr. Sara Matos EO # 0.1 103/ul Normal 0.0-0.7 [facility] Comment on above: Performed By: #### JAIME GODWIN #### [facility] [address] [place] [address] Dr. Sara Matos Eosinophils/100 WBC (Bld) 1.3 % Normal 0.9-7.0 [facility] Comment on above: Performed By: #### JAIME GODWIN #### [facility] [address] [place] [address] Dr. Sara Matos Erythrocyte distribution width (RBC) [Ratio] 12.3 % Normal 11.0-15.0 [facility] Comment on above: Performed By: #### KACY GODWINRO #### [facility] [address] [place] [address] Dr. Sara Matos Hematocrit (Bld) [Volume fraction] 33.6 % Critically low 36.0-48.0 [facility] Comment on above: Performed By: #### KACY GODWINRO #### [facility] [address] [place] [address] Dr. Sara Matos Hemoglobin (Bld) [Mass/Vol] 11.3 g/dL Critically low 12.0-16.0 [facility] Comment on above: Performed By: #### JAIME GODWIN #### [facility] [address] [address] [address] Sara Matos IG # 0.04 10e3/ul Critically high 0.00-0.03 [facility] Comment on above: Performed By: #### E RUR, UMICRO #### [facility] [address] [address] [address] Sara Matos IG % 0.4 % Normal 0.0-0.5 [facility] Comment on above: Performed By: #### E RUR, UMICRO #### [facility] [address] [place] [address] Dr. Sara Matos LYMPH # 1.7 103/ul Normal 1.2-3.8 [facility] Comment on above: Performed By: #### E RUR, UMICRO #### [facility] [address] [place] [address] Dr. Sara Matos Lymphocytes/100 WBC (Bld) 16.7 % Critically low 20.5-60.0 [facility] Comment on above: Performed By: #### E LONDONR, UMICRO #### [facility] [address] [place] [address] Dr. Sara Matos MANUAL DIFF REQ NO Normal [facility] Comment on above: Performed By: #### E LONDONR, UMICRO #### [facility] [address] [place] [address] Dr. Sara Matos MCH (RBC) [Entitic mass] 28.8 pg Normal 26.7-34.0 [facility] Comment on above: Performed By: #### E RUR, UMICRO #### [facility] [address] [place] [address] Dr. Sara Matos MCHC (RBC) [Mass/Vol] 33.6 g/dL Normal 29.9-35.2 [facility] Comment on above: Performed By: #### E RUR, UMICRO #### [facility] [address] [place] [address] Dr. Sara Matos MCV (RBC) [Entitic vol] 85.5 fL Normal 81.0-99.0 [facility] Comment on above: Performed By: #### KACY GODWINRO #### [facility] [address] [place] [address] Dr. Sara Matos MONO # 0.6 103/ul Normal 0.3-0.8 [facility] Comment on above: Performed By: #### KACY GODWINRO #### [facility] [address] [place] [address] Dr. Sara Matos Monocytes/100 WBC (Bld) 5.9 % Normal 1.7-12.0 [facility] Comment on above: Performed By: #### KACY GODWINRO #### [facility] [address] [place] [address] Dr. Sara Matos NEUT # 7.7 103/ul Critically high 1.4-6.5 [facility] Comment on above: Performed By: #### KACY GODWINRO #### [facility] [address] [place] [address] Dr. Sara Matos Neutrophils/100 WBC (Bld) 75.3 % Critically high 43.0-75.0 [facility] Comment on above: Performed By: #### KACY GODWINRO #### [facility] [address] [place] [address] Dr. Sara Matos Platelet mean volume (Bld) [Entitic vol] 11.2 fL Normal 9.5-13.5 [facility] Comment on above: Performed By: #### KACY GODWINRO #### [facility] [address] [place] [address] Dr. Sara Matos PLT 217 103/ul Normal 150-450 [facility] Comment on above: Performed By: #### KACY GODWINRO #### [facility] [address] [place] [address] Dr. Sara Matos RBC 3.93 106/ul Critically low 4.20-5.40 [facility] Comment on above: Performed By: #### KACY GODWINRO #### [facility] [address] [place] [address] Dr. Sara Matos WBC 10.2 103/ul Normal 4.0-11.0 [facility] Comment on above: Performed By: #### JAIME GODWIN #### [facility] [address] [place] [address] Dr. Sara Matos CULTURE URINEon 11-17-2022 CULTURE URINE Culture Observations : HEAVY GROWTH OF MIXED GENITAL JP. NO POTENTIAL PATHOGENS SEEN. Normal [facility] Comment on above: Performed By: #### JAIME GODWIN #### [facility] [address] [address] [address] Sara Matos DRUG SCREEN RAPID (URINE)on 11-17-2022 AMP Negative Normal NEGATIVE [facility] Comment on above: Performed By: #### P REGU, DRUGRPD #### [facility] [address] [place] [address] Dr. Sara Matos BAR Negative Normal NEGATIVE [facility] Comment on above: Performed By: #### P REGU, DRUGRPD #### [facility] [address] [place] [address] Dr. Sara Matos BUP Negative Normal NEGATIVE [facility] Comment on above: Performed By: #### P REGU, DRUGRPD #### [facility] [address] [place] [address] Dr. Sara Matos BZO Negative Normal NEGATIVE [facility] Comment on above: Performed By: #### P REGU, DRUGRPD #### [facility] [address] [place] [address] Dr. Sara Matos COLLEEN Negative Normal NEGATIVE [facility] Comment on above: Performed By: #### P REGU, DRUGRPD #### [facility] [address] [place] [address] Dr. Sara Matos CUT-OFFS SEE BELOW Normal [facility] Comment on above: Result Comment: AMP [...] Performed By: #### P REGU, DRUGRPD #### [facility] [address] [place] [address] Dr. Sara Matos DRUG CUT HEADER DRUG CLASS TEST SYSTEM CUT-OFF CONCENTRATIONS ARE FOLLOWS: Normal [facility] Comment on above: Performed By: #### P REGU, DRUGRPD #### [facility] [address] [place] [address] Dr. Sara Matos mAMP Negative Normal NEGATIVE [facility] Comment on above: Performed By: #### P REGU, DRUGRPD #### [facility] [address] [place] [address] Dr. Sara Matos MTD Negative Normal NEGATIVE [facility] Comment on above: Performed By: #### P REGU, DRUGRPD #### [facility] [address] [place] [address] Dr. Sara Matos OPI Negative Normal NEGATIVE [facility] Comment on above: Performed By: #### P REGU, DRUGRPD #### [facility] [address] [place] [address] Dr. Sara Matos OXY Negative Normal NEGATIVE [facility] Comment on above: Performed By: #### P REGU, DRUGRPD #### [facility] [address] [place] [address] Dr. Sara Matos PCP Negative Normal NEGATIVE [facility] Comment on above: Performed By: #### P REGU, DRUGRPD #### [facility] [address] [place] [address] Dr. Sara Matos PPX Negative Normal NEGATIVE [facility] Comment on above: Performed By: #### P REGU, DRUGRPD #### [facility] [address] [place] [address] Dr. Sara Matos TCA Negative Normal NEGATIVE [facility] Comment on above: Performed By: #### P REGU, DRUGRPD #### [facility] [address] [address] [address] Sara Matos THC Negative Normal NEGATIVE [facility] Comment on above: Performed By: #### P URIEL DRUGRPD #### [facility] [address] [address] [address] Sara Matos GLYCOHEMOGLOBIN A1Con 2022 ADA RECOMMENDATION SEE BELOW Normal [facility] Comment on above: Result Comment: ADA RECOMMENDED LIMIT 4.0 - 6.0 ADA THERAPEUTIC TARGET < 7.0 ACTION SUGGESTED > 7.0 Performed By: #### A 1C #### [facility] [address] [place] [address] Dr. Sara Matos Glucose [Mass/Vol] 85 mg/dL Normal [facility] Comment on above: Performed By: #### A 1C #### [facility] [address] [place] [address] Dr. Sara Matos HbA1c (Bld) [Mass fraction] 4.6 % Normal 4.5-6.2 [facility] Comment on above: Performed By: #### A 1C #### [facility] [address] [place] [address] Dr. Sara Matos URon 11-17-2022 , QUAL Positive Abnormal NEGATIVE [facility] Comment on above: Performed By: #### Sarah TREVINO DRUGRPD #### [facility] [address] [place] [address] Dr. Sara Matos TYPE AND SCREENon 11-17-2022 TYPE AND SCREEN Negative Normal [facility] Comment on above: Performed By: #### JAIME GODWIN #### [facility] [address] [place] [address] Dr. Sara Matos US PREG DATING >[id number] [...] LA O Date: 2022-09-07 10:38 Normal [facility] CHLAMYDIA/GONOCOCCUS DEENA (SW AB/URINE/PAPon 06-10-2022 Chlamydia trachomatis, DEENA Negative Normal Negative [facility] Comment on above: Performed By: #### T SH #### [facility] [address] [place] [address] Dr. Sara Matos Neisseria gonorrhoeae, DEENA Negative Normal Negative [facility] Comment on above: Performed By: #### T SH #### [facility] [address] [place] [address] Dr. Sara Matos GENITAL CULTUREon 06-09-2022 Genital Culture, Routine NOBACT Normal [facility] Comment on above: Result Comment: Test [...] specimen.) Performed By: #### JAIME GODWIN #### [facility] [address] [place] [address] Dr. Sara Matos ER URINE PROFILEon Bilirubin Ql (U) Negative Normal NEGATIVE [facility] Comment on above: Performed By: #### JAIME GODWIN #### [facility] [address] [place] [address] Dr. Sara Matos Clarity (U) CLEAR Normal CLEAR [facility] Comment on above: Performed By: #### KACY GODWINRO #### [facility] [address] [place] [address] Dr. Sara Matos Color (U) LT. YELLOW Normal YELLOW [facility] Comment on above: Performed By: #### KACY GODWINRO #### [facility] [address] [place] [address] Dr. Sara BCUKNER A micrscopic examination will be performed if indicated. Normal [facility] Comment on above: Performed By: #### KACY GODWINRO #### [facility] [address] [place] [address] Dr. Sara Matos Glucose Ql (U) Negative Normal NEGATIVE [facility] Comment on above: Performed By: #### KACY GODWINRO #### [facility] [address] [place] [address] Dr. Sara Matos Hemoglobin Ql (U) Negative Normal NEGATIVE [facility] Comment on above: Performed By: #### KACY GODWINRO #### [facility] [address] [place] [address] Dr. Sara Matos Ketones Ql (U) Negative Normal NEGATIVE [facility] Comment on above: Performed By: #### FLORENTINO GODWINICRO #### [facility] [address] [place] [address] Dr. Sara Matos LEUKOCYTES TRACE Abnormal NEGATIVE [facility] Comment on above: Performed By: #### KACY GODWINRO #### [facility] [address] [place] [address] Dr. Sara Matos Nitrite Ql (U) Negative Normal NEGATIVE [facility] Comment on above: Performed By: #### Mery SINHA UMICRO #### [facility] [address] [place] [address] Dr. Sara Matos pH (U) 6.0 [pH] Normal 5-9 [facility] Comment on above: Performed By: #### JAIME GODWIN #### [facility] [address] [place] [address] Dr. Sara Matos SPEC GRAVITY 1.015 Normal 1.005-<=1.025 [facility] Comment on above: Performed By: #### E BHARATH, UMICRO #### [facility] [address] [place] [address] Dr. Sara Matos UA PROTEIN Negative Normal NEGATIVE/ TRACE [facility] Comment on above: Performed By: #### E BHARATH UMICRO #### [facility] [address] [place] [address] Dr. Sara Matos UR MICRO IND INDICATED Normal [facility] Comment on above: Performed By: #### E BHARATH UMICRO #### [facility] [address] [place] [address] Dr. Sara Matos Urobilinogen Qn (U) 0.2 {Ana'U}/dL Normal 0.2 - 1. 0 [facility] Comment on above: Performed By: #### Mery SINHA UMICRO #### [facility] [address] [place] [address] Dr. aSra Matos URon 06-06-2022 , QUAL Negative Normal NEGATIVE [facility] Comment on above: Performed By: #### P REGU #### [facility] [address] [place] [address] Dr. Sara Matos URINE MICROSCOPIC ONLYon BACTERIA NONE SEEN Normal NONE SEEN [facility] Comment on above: Performed By: #### Mery SINHA UMICRO #### [facility] [address] [place] [address] Dr. Sara Matos Bacteria identified Cx Nom (U) NOT INDICATED Normal [facility] Comment on above: Performed By: #### E BHARATH UMICRO #### [facility] [address] [place] [address] Dr. Sara Matos CAST NONE SEEN Normal NONE SEEN [facility] Comment on above: Performed By: #### Mery SINHA UMICRO #### [facility] [address] [place] [address] Dr. Sara Matos Crystals LM Nom (Urine sed) NONE SEEN Normal NONE SEEN [facility] Comment on above: Performed By: #### KACY GODWINRO #### [facility] [address] [place] [address] Dr. Sara Matos Epithelial cells LM Ql (Urine sed) FEW Abnormal NONE SEEN /RARE [facility] Comment on above: Performed By: #### KACY GODWINRO #### [facility] [address] [place] [address] Dr. Sara Matos MUCOUS NONE SEEN Normal NONE SEEN [facility] Comment on above: Performed By: #### KACY GODWINRO #### [facility] [address] [place] [address] Dr. Sara Matos RBC NONE SEEN Abnormal 0-2 [facility] Comment on above: Performed By: #### KACY GODWINRO #### [facility] [address] [place] [address] Dr. Sara Matos WBC 0-2 Abnormal NONE SEEN [facility] Comment on above: Performed By: #### KACY GODWINRO #### [facility] [address] [place] [address] Dr. Sara Matos WET PREPon 06-06-2022 CLUE CELLS NONE SEEN Normal NONE SEEN [facility] Comment on above: Performed By: #### T SH #### [facility] [address] [place] [address] Dr. Sara Matos FUNGAL ELEMENTS NONE SEEN Normal NONE SEEN [facility] Comment on above: Performed By: #### T SH #### [facility] [address] [place] [address] Dr. Sara Matos RBC -WET PREP NONE SEEN Normal NONE SEEN [facility] Comment on above: Performed By: #### T SH #### [facility] [address] [place] [address] Dr. Sara Matos TRICHOMONAS NONE SEEN Normal NONE SEEN [facility] Comment on above: Performed By: #### T SH #### [facility] [address] [address] [address] Sara Matos WBC- WET PREP FEW Abnormal NONE SEEN [facility] Comment on above: Performed By: #### T SH #### [facility] [address] [address] [address] Sara Matos WET PREP BACTERIA NONE SEEN Normal NONE SEEN [facility] Comment on above: Performed By: #### T SH #### [facility] [address] [address] [address] Sara Matos Abstracton 04-25-2022 Abstract [id number] Astrid Montague 1995 F Date Provider Department Center 04/25/2022 LILIAN AGUIRRE [facility] Family History Problem Relation Age of Onset Heart attack Maternal Grandmother Coronary artery disease Maternal Grandmother Family Status - Relation Status Age at Maternal Grandmother Paternal Grandmother Normal [facility] Abstracton 04-22-2022 Abstract [id number] Astrid Montague 1995 Date Provider Department Center 04/22/2022 YURIDIA CARO [facility] [facility] Family History Problem Relation Age of Onset Heart attack Paternal Grandmother Family Status - Relation Status Age at Paternal Grandmother Normal [facility] US GUY DOP LEG LTon 04-01-20 US [...] [place] O Date: 2022-04-01 17:05 Normal [facility] METANEPHRINES PLASMA FREEon 02-04-2022 Metanephrine, Pl 13.7 pg/mL Normal 0.0-88.0 [facility] Comment on above: Performed By: #### P REGU, DRUGRPD #### [facility] [address] [address] [address] Sara Matos Normetanephrine, Pl 45.6 pg/mL Normal 0.0-210.1 [facility] Comment on above: Performed By: #### P URIEL DRUGRPHumphrey #### [facility] [address] [place] [address] Dr. Sara Matos CARDIAC ANTONY ADMITon 022 CK [Catalytic activity/Vol] 67 U/L Normal 26-192 [facility] Comment on above: Performed By: #### T SH #### [facility] [address] [place] [address] Dr. Sara Matos CK.MB [Mass/Vol] 0.99 ng/mL Normal <=3.60 [facility] Comment on above: Performed By: #### T SH #### [facility] [address] [place] [address] Dr. Sara Matos HSTROP 4.7 pg/mL Normal 4.0-51.3 [facility] Comment on above: Result Comment: CUT- OFF POINTS HAVE BEEN ESTABLISHED BASED ON THE FOURTH UNIVERSAL DEFINITIONS OF MYOCARDIAL INFARCTION. THE UPPER REFERENCE LIMIT (URL) OF TROPONIN, DEFINED THE 99TH PERCENTILE OF cTnI DISTRIBUTION IN A REFERENCE POPULATION, HAS BEEN CONFIRMED THE DECISION THRESHOLD FOR [place] DIAGNOSIS. Performed By: #### T SH #### [facility] [address] [place] [address] Dr. Sara Matos ELENA 34 ng/mL Normal 9-82 [facility] Comment on above: Performed By: #### T SH #### [facility] [address] [place] [address] Dr. Sara Matos CBC AUTO DIFFon 01-30-2022 BASO # 0.1 103/ul Normal 0.0-0.1 [facility] Comment on above: Performed By: #### T SH #### [facility] [address] [place] [address] Dr. Sara Matos Basophils/100 WBC (Bld) 0.8 % Normal 0.2-2.0 [facility] Comment on above: Performed By: #### T SH #### [facility] [address] [place] [address] Dr. Sara Matos EO # 0.1 103/ul Normal 0.0-0.7 [facility] Comment on above: Performed By: #### T SH #### [facility] [address] [place] [address] Dr. Sara Matos Eosinophils/100 WBC (Bld) 0.6 % Critically low 0.9-7.0 [facility] Comment on above: Performed By: #### T SH #### [facility] [address] [place] [address] Dr. Sara Matos Erythrocyte distribution width (RBC) [Ratio] 13.6 % Normal 11.0-15.0 [facility] Comment on above: Performed By: #### T SH #### [facility] [address] [place] [address] Dr. Sara Matos Hematocrit (Bld) [Volume fraction] 40.4 % Normal 36.0-48.0 [facility] Comment on above: Performed By: #### T SH #### [facility] [address] [place] [address] Dr. Sara Matos Hemoglobin (Bld) [Mass/Vol] 13.0 g/dL Normal 12.0-16.0 [facility] Comment on above: Performed By: #### T SH #### [facility] [address] [place] [address] Dr. Sara Matos IG # 0.03 10e3/ul Normal 0.00-0.03 [facility] Comment on above: Performed By: #### T SH #### [facility] [address] [place] [address] Dr. Sara Matos IG % 0.3 % Normal 0.0-0.5 [facility] Comment on above: Performed By: #### T SH #### [facility] [address] [place] [address] Dr. Sara Matos LYMPH # 2.6 103/ul Normal 1.2-3.8 [facility] Comment on above: Performed By: #### T SH #### [facility] [address] [place] [address] Dr. Sara Matos Lymphocytes/100 WBC (Bld) 26.5 % Normal 20.5-60.0 [facility] Comment on above: Performed By: #### T SH #### [facility] [address] [place] [address] Dr. Sara Matos MANUAL DIFF REQ NO Normal [facility] Comment on above: Performed By: #### T SH #### [facility] [address] [place] [address] Dr. Sara Matos MCH (RBC) [Entitic mass] 26.9 pg Normal 26.7-34.0 [facility] Comment on above: Performed By: #### T SH #### [facility] [address] [place] [address] Dr. Sara aMtos MCHC (RBC) [Mass/Vol] 32.2 g/dL Normal 29.9-35.2 [facility] Comment on above: Performed By: #### T SH #### [facility] [address] [place] [address] Dr. Sara Matos MCV (RBC) [Entitic vol] 83.6 fL Normal 81.0-99.0 [facility] Comment on above: Performed By: #### T SH #### [facility] [address] [place] [address] Dr. Sara Matos MONO # 0.6 103/ul Normal 0.3-0.8 [facility] Comment on above: Performed By: #### T SH #### [facility] [address] [place] [address] Dr. Sara Matos Monocytes/100 WBC (Bld) 6.4 % Normal 1.7-12.0 [facility] Comment on above: Performed By: #### T SH #### [facility] [address] [place] [address] Dr. Sara Matos NEUT # 6.3 103/ul Normal 1.4-6.5 [facility] Comment on above: Performed By: #### T SH #### [facility] [address] [place] [address] Dr. Sara Matos Neutrophils/100 WBC (Bld) 65.4 % Normal 43.0-75.0 [facility] Comment on above: Performed By: #### T SH #### [facility] [address] [place] [address] Dr. Sara Matos Platelet mean volume (Bld) [Entitic vol] 11.8 fL Normal 9.5-13.5 [facility] Comment on above: Performed By: #### T SH #### [facility] [address] [place] [address] Dr. Sara Matos PLT 218 103/ul Normal 150-450 [facility] Comment on above: Performed By: #### T SH #### [facility] [address] [place] [address] Dr. Sara Matos RBC 4.83 106/ul Normal 4.20-5.40 [facility] Comment on above: Performed By: #### T SH #### [facility] [address] [place] [address] Dr. Sara Matos WBC 9.6 103/ul Normal 4.0-11.0 [facility] Comment on above: Performed By: #### T SH #### [facility] [address] [place] [address] Dr. Sara Matos ER URINE PROFILEon 2 Bilirubin Ql (U) Negative Normal NEGATIVE [facility] Comment on above: Performed By: #### KACY GODWINRO #### [facility] [address] [place] [address] Dr. Sara Matos Clarity (U) CLEAR Normal CLEAR [facility] Comment on above: Performed By: #### KACY GODWINRO #### [facility] [address] [place] [address] Dr. Sara Matos Color (U) LT. YELLOW Normal YELLOW [facility] Comment on above: Performed By: #### KACY GODWINRO #### [facility] [address] [place] [address] Dr. Sara BUCKNER A micrscopic examination will be performed if indicated. Normal [facility] Comment on above: Performed By: #### KACY GODWINRO #### [facility] [address] [place] [address] Dr. Sara Matos Glucose Ql (U) Negative Normal NEGATIVE [facility] Comment on above: Performed By: #### Mery SINHA UMICRO #### [facility] [address] [place] [address] Dr. Sara Matos Hemoglobin Ql (U) LARGE Abnormal NEGATIVE [facility] Comment on above: Performed By: #### Mery SINHA UMICRO #### [facility] [address] [place] [address] Dr. Sara Matos Ketones Ql (U) Negative Normal NEGATIVE [facility] Comment on above: Performed By: #### Mery SINHA UMICRO #### [facility] [address] [place] [address] Dr. Sara Matos LEUKOCYTES Negative Normal NEGATIVE [facility] Comment on above: Performed By: #### Mery SINHA UMICRO #### [facility] [address] [place] [address] Dr. Sara Matos Nitrite Ql (U) Negative Normal NEGATIVE [facility] Comment on above: Performed By: #### KACY GODWINRO #### [facility] [address] [place] [address] Dr. Sara Matos pH (U) 6.0 [pH] Normal 5-9 [facility] Comment on above: Performed By: #### Mery SINHA UMICRO #### [facility] [address] [place] [address] Dr. Sara Matos SPEC GRAVITY <=1.005 Abnormal 1.005-<=1.025 [facility] Comment on above: Performed By: #### Mery SINHA UMICRO #### [facility] [address] [place] [address] Dr. Sara Matos UA PROTEIN Negative Normal NEGATIVE/ TRACE [facility] Comment on above: Performed By: #### Mery SINHA UMICRO #### [facility] [address] [place] [address] Dr. Sara Matos UR MICRO IND INDICATED Normal [facility] Comment on above: Performed By: #### JAIME GODWIN #### [facility] [address] [place] [address] Dr. Sara Matos Urobilinogen Qn (U) 0.2 {Ana'U}/dL Normal 0.2 - 1. 0 [facility] Comment on above: Performed By: #### JAIME GODWIN #### [facility] [address] [place] [address] Dr. Sara Matos PREG HCG QUALon 01-30-2022 , QUAL Negative Normal NEGATIVE [facility] Comment on above: Performed By: #### JAIME GODWIN #### [facility] [address] [place] [address] Dr. Sara Matos PROF 14(COMP METB)on 022 Albumin [Mass/Vol] 4.3 g/dL Normal 3.4-5.0 [facility] Comment on above: Performed By: #### T SH #### [facility] [address] [place] [address] Dr. Sara Matos Albumin/Globulin [Mass ratio] 1.2 {ratio} Normal [facility] Comment on above: Performed By: #### T SH #### [facility] [address] [place] [address] Dr. Sara Matos ALP [Catalytic activity/Vol] 63 U/L Normal 46-116 [facility] Comment on above: Performed By: #### T SH #### [facility] [address] [place] [address] Dr. Sara Matos ALT [Catalytic activity/Vol] 35 U/L Normal 14-59 [facility] Comment on above: Performed By: #### T SH #### [facility] [address] [place] [address] Dr. Sara Matos Anion gap [Moles/Vol] 9.7 mmol/L Normal [facility] Comment on above: Performed By: #### T SH #### [facility] [address] [place] [address] Dr. Sara Matos AST [Catalytic activity/Vol] 19 U/L Normal 15-37 [facility] Comment on above: Performed By: #### T SH #### [facility] [address] [address] [address] Sara Matos Bilirubin [Mass/Vol] 0.4 mg/dL Normal 0.2-1.0 [facility] Comment on above: Performed By: #### T SH #### [facility] [address] [address] [address] Sara Matos Calcium [Mass/Vol] 9.3 mg/dL Normal 8.5-10.1 [facility] Comment on above: Performed By: #### T SH #### [facility] [address] [place] [address] Dr. Sara Matos Chloride [Moles/Vol] 101 mmol/L Normal 98-107 [facility] Comment on above: Performed By: #### T SH #### [facility] [address] [place] [address] Dr. Sara Matos CO2 [Moles/Vol] 27.8 mmol/L Normal 21.0-32.0 [facility] Comment on above: Performed By: #### T SH #### [facility] [address] [place] [address] Dr. Sara Matos Creatinine [Mass/Vol] 0.78 mg/dL Normal 0.55-1.02 [facility] Comment on above: Performed By: #### T SH #### [facility] [address] [place] [address] Dr. Sara Matos EGFR-AF SWISS >60 Normal >=60 [facility] Comment on above: Performed By: #### T SH #### [facility] [address] [place] [address] Dr. Sara Matos EGFR-NON AF SWISS >60 Normal >=60 [facility] Comment on above: Performed By: #### T SH #### [facility] [address] [place] [address] Dr. Sara Matos Globulin (S) [Mass/Vol] 3.5 g/dL Normal [facility] Comment on above: Performed By: #### T SH #### [facility] [address] [address] [address] Sara Matos Glucose [Mass/Vol] 89 mg/dL Normal 74-106 [facility] Comment on above: Performed By: #### T SH #### [facility] [address] [address] [address] Sara Matos Potassium [Moles/Vol] 3.5 mmol/L Normal 3.5-5.1 [facility] Comment on above: Performed By: #### T SH #### [facility] [address] [place] [address] Dr. Sara Matos Protein [Mass/Vol] 7.8 g/dL Normal 6.4-8.2 [facility] Comment on above: Performed By: #### T SH #### [facility] [address] [place] [address] Dr. Sara Matos Sodium [Moles/Vol] 135 mmol/L Critically low 136-145 [facility] Comment on above: Performed By: #### T SH #### [facility] [address] [place] [address] Dr. Sara Matos Urea nitrogen [Mass/Vol] 6.0 mg/dL Critically low 7.0-18.0 [facility] Comment on above: Performed By: #### T SH #### [facility] [address] [place] [address] Dr. Sara Matos Urea nitrogen/Creatinine [Mass ratio] 7.7 mg/mg Normal [facility] Comment on above: Performed By: #### T SH #### [facility] [address] [place] [address] Dr. Sara Matos URINE MICROSCOPIC ONLYon BACTERIA NONE SEEN Normal NONE SEEN [facility] Comment on above: Performed By: #### JAIME GODWIN #### [facility] [address] [place] [address] Dr. Sara Matos Bacteria identified Cx Nom (U) NOT INDICATED Normal [facility] Comment on above: Performed By: #### JAIME GODWIN #### [facility] [address] [place] [address] Dr. Sara Matos CAST NONE SEEN Normal NONE SEEN [facility] Comment on above: Performed By: #### Mery SINHA UMICRO #### [facility] [address] [place] [address] Dr. Sara Matos Crystals LM Nom (Urine sed) NONE SEEN Normal NONE SEEN [facility] Comment on above: Performed By: #### Mery SINHA UMICRO #### [facility] [address] [place] [address] Dr. Sara Matos Epithelial cells LM Ql (Urine sed) RARE Normal NONE SEEN /RARE [facility] Comment on above: Performed By: #### Mery SINHA UMICRO #### [facility] [address] [place] [address] Dr. Sara Matos MUCOUS NONE SEEN Normal NONE SEEN [facility] Comment on above: Performed By: #### FLORENTINO GODWINICRO #### [facility] [address] [place] [address] Dr. Sara Matos RBC 0-2 Normal 0-2 [facility] Comment on above: Performed By: #### KACY GODWINRO #### [facility] [address] [place] [address] Dr. Sara Matos WBC 0-2 Abnormal NONE SEEN [facility] Comment on above: Performed By: #### Mery SINHA UMICRO #### [facility] [address] [place] [address] Dr. Sara Matos CBC AUTO DIFFon 01-24-2022 BASO # 0.1 103/ul Normal 0.0-0.1 [facility] Comment on above: Performed By: #### Mery SINHA UMICRO #### [facility] [address] [place] [address] Dr. Sara Matos Basophils/100 WBC (Bld) 0.5 % Normal 0.2-2.0 [facility] Comment on above: Performed By: #### Mery SINHA UMICRO #### [facility] [address] [place] [address] Dr. Sara Matos EO # 0.0 103/ul Normal 0.0-0.7 [facility] Comment on above: Performed By: #### JAIME GODWIN #### [facility] [address] [place] [address] Dr. Sara Matos Eosinophils/100 WBC (Bld) 0.4 % Critically low 0.9-7.0 [facility] Comment on above: Performed By: #### KACY GODWINRO #### [facility] [address] [place] [address] Dr. Sara Matos Erythrocyte distribution width (RBC) [Ratio] 13.3 % Normal 11.0-15.0 [facility] Comment on above: Performed By: #### JAIME GODWIN #### [facility] [address] [place] [address] Dr. Sara Matos Hematocrit (Bld) [Volume fraction] 39.4 % Normal 36.0-48.0 [facility] Comment on above: Performed By: #### KACY GODWINRO #### [facility] [address] [place] [address] Dr. Sara Matos Hemoglobin (Bld) [Mass/Vol] 12.9 g/dL Normal 12.0-16.0 [facility] Comment on above: Performed By: #### KACY GODWINRO #### [facility] [address] [place] [address] Dr. Sara Matos IG # 0.03 10e3/ul Normal 0.00-0.03 [facility] Comment on above: Performed By: #### KACY GODWINRO #### [facility] [address] [place] [address] Dr. Sara Matos IG % 0.3 % Normal 0.0-0.5 [facility] Comment on above: Performed By: #### KACY GODWINRO #### [facility] [address] [place] [address] Dr. Sara Matos LYMPH # 2.8 103/ul Normal 1.2-3.8 [facility] Comment on above: Performed By: #### Mery SINHA UMICRO #### [facility] [address] [place] [address] Dr. Sara Matos Lymphocytes/100 WBC (Bld) 25.3 % Normal 20.5-60.0 [facility] Comment on above: Performed By: #### E BHARATH UMICRO #### [facility] [address] [place] [address] Dr. Sara Matos MANUAL DIFF REQ NO Normal [facility] Comment on above: Performed By: #### E RUR UMICRO #### [facility] [address] [place] [address] Dr. Sara Matos MCH (RBC) [Entitic mass] 26.5 pg Critically low 26.7-34.0 [facility] Comment on above: Performed By: #### E BHARATH UMICRO #### [facility] [address] [place] [address] Dr. Sara Matos MCHC (RBC) [Mass/Vol] 32.7 g/dL Normal 29.9-35.2 [facility] Comment on above: Performed By: #### Mery SINHA UMICRO #### [facility] [address] [place] [address] Dr. Sara Matos MCV (RBC) [Entitic vol] 80.9 fL Critically low 81.0-99.0 [facility] Comment on above: Performed By: #### Mery SINHA UMICRO #### [facility] [address] [place] [address] Dr. Sara Matos MONO # 0.8 103/ul Normal 0.3-0.8 [facility] Comment on above: Performed By: #### E BHARATH UMICRO #### [facility] [address] [place] [address] Dr. Sara Matos Monocytes/100 WBC (Bld) 6.8 % Normal 1.7-12.0 [facility] Comment on above: Performed By: #### E RULaci UMICRO #### [facility] [address] [place] [address] Dr. Sara Matos NEUT # 7.4 103/ul Critically high 1.4-6.5 [facility] Comment on above: Performed By: #### JAIME GODWIN #### [facility] [address] [place] [address] Dr. Sara Matos Neutrophils/100 WBC (Bld) 66.7 % Normal 43.0-75.0 [facility] Comment on above: Performed By: #### KACY GODWINRO #### [facility] [address] [place] [address] Dr. Sara Matos Platelet mean volume (Bld) [Entitic vol] 11.3 fL Normal 9.5-13.5 [facility] Comment on above: Performed By: #### JAIME GODWIN #### [facility] [address] [place] [address] Dr. Sara Matos PLT 281 103/ul Normal 150-450 [facility] Comment on above: Performed By: #### JAIME GODWIN #### [facility] [address] [place] [address] Dr. Sara Matos RBC 4.87 106/ul Normal 4.20-5.40 [facility] Comment on above: Performed By: #### JAIME GODWIN #### [facility] [address] [place] [address] Dr. Sara Matos WBC 11.1 103/ul Critically high 4.0-11.0 [facility] Comment on above: Performed By: #### JAIME GODWIN #### [facility] [address] [place] [address] Dr. Sara Matos MAGNESIUMon 01-24-2022 Magnesium [Mass/Vol] 2.0 mg/dL Normal 1.8-2.4 [facility] Comment on above: Performed By: #### JAIME GODWIN #### [facility] [address] [place] [address] Dr. Sara Matos T3 UPTAKEon 01-24-2022 T3U 37.0 % Normal 30.0-39.0 [facility] Comment on above: Performed By: #### T 3UP #### [facility] [address] [place] [address] Dr. Sara Matos T4on 01-24-2022 T4 [Mass/Vol] 11.60 ug/dL Normal 4.80-13.90 [facility] Comment on above: Performed By: #### T 4 #### [facility] [address] [place] [address] Dr. Sara Matos TSHon 01-24-2022 TSH 0.547 uIU/mL Normal 0.358-3.740 [facility] Comment on above: Performed By: #### T SH #### [facility] [address] [place] [address] Dr. Sara Matos TSH RANGE SEE BELOW Normal [facility] Comment on above: Result Comment: <0.3 4 UIU/ml HYPERTHYROID 0.34-5.60 UIU/ml EUTHYROID >5.60 UIU/ml HYPOTHYROID Performed By: #### T SH #### [facility] [address] [place] [address] Dr. Sara Matos CBC AUTO DIFFon 01-19-2022 BASO # 0.0 103/ul Normal 0.0-0.1 [facility] Comment on above: Performed By: #### T SH #### [facility] [address] [place] [address] Dr. Sara Matos Basophils/100 WBC (Bld) 0.5 % Normal 0.2-2.0 [facility] Comment on above: Performed By: #### T SH #### [facility] [address] [place] [address] Dr. Sara Matos EO # 0.1 103/ul Normal 0.0-0.7 [facility] Comment on above: Performed By: #### T SH #### [facility] [address] [place] [address] Dr. Sara Matos Eosinophils/100 WBC (Bld) 1.1 % Normal 0.9-7.0 [facility] Comment on above: Performed By: #### T SH #### [facility] [address] [place] [address] Dr. Sara Matos Erythrocyte distribution width (RBC) [Ratio] 13.6 % Normal 11.0-15.0 [facility] Comment on above: Performed By: #### T SH #### [facility] [address] [place] [address] Dr. Sara Matos Hematocrit (Bld) [Volume fraction] 38.4 % Normal 36.0-48.0 [facility] Comment on above: Performed By: #### T SH #### [facility] [address] [place] [address] Dr. Sara Matos Hemoglobin (Bld) [Mass/Vol] 12.5 g/dL Normal 12.0-16.0 [facility] Comment on above: Performed By: #### T SH #### [facility] [address] [place] [address] Dr. Sara Matos IG # 0.02 10e3/ul Normal 0.00-0.03 [facility] Comment on above: Performed By: #### T SH #### [facility] [address] [place] [address] Dr. Sara Matos IG % 0.2 % Normal 0.0-0.5 [facility] Comment on above: Performed By: #### T SH #### [facility] [address] [place] [address] Dr. Sara Matos LYMPH # 2.5 103/ul Normal 1.2-3.8 [facility] Comment on above: Performed By: #### T SH #### [facility] [address] [place] [address] Dr. Sara Matos Lymphocytes/100 WBC (Bld) 28.9 % Normal 20.5-60.0 [facility] Comment on above: Performed By: #### T SH #### [facility] [address] [place] [address] Dr. Sara Matos MANUAL DIFF REQ NO Normal [facility] Comment on above: Performed By: #### T SH #### [facility] [address] [place] [address] Dr. Sara Matos MCH (RBC) [Entitic mass] 26.9 pg Normal 26.7-34.0 [facility] Comment on above: Performed By: #### T SH #### [facility] [address] [place] [address] Dr. Sara Matos MCHC (RBC) [Mass/Vol] 32.6 g/dL Normal 29.9-35.2 [facility] Comment on above: Performed By: #### T SH #### [facility] [address] [place] [address] Dr. Sara Matos MCV (RBC) [Entitic vol] 82.6 fL Normal 81.0-99.0 [facility] Comment on above: Performed By: #### T SH #### [facility] [address] [place] [address] Dr. Sara Matos MONO # 0.7 103/ul Normal 0.3-0.8 [facility] Comment on above: Performed By: #### T SH #### [facility] [address] [place] [address] Dr. Sara Matos Monocytes/100 WBC (Bld) 7.5 % Normal 1.7-12.0 [facility] Comment on above: Performed By: #### T SH #### [facility] [address] [place] [address] Dr. Sara Matos NEUT # 5.4 103/ul Normal 1.4-6.5 [facility] Comment on above: Performed By: #### T SH #### [facility] [address] [place] [address] Dr. Sara Matos Neutrophils/100 WBC (Bld) 61.8 % Normal 43.0-75.0 [facility] Comment on above: Performed By: #### T SH #### [facility] [address] [place] [address] Dr. Sara Matos Platelet mean volume (Bld) [Entitic vol] 11.4 fL Normal 9.5-13.5 [facility] Comment on above: Performed By: #### T SH #### [facility] [address] [place] [address] Dr. Sara Matos PLT 233 103/ul Normal 150-450 [facility] Comment on above: Performed By: #### T SH #### [facility] [address] [place] [address] Dr. Sara Matos RBC 4.65 106/ul Normal 4.20-5.40 [facility] Comment on above: Performed By: #### T SH #### [facility] [address] [place] [address] Dr. Sara Matos WBC 8.8 103/ul Normal 4.0-11.0 [facility] Comment on above: Performed By: #### T SH #### [facility] [address] [place] [address] Dr. Sara Matos PROF 14(COMP METB)on 022 Albumin [Mass/Vol] 3.8 g/dL Normal 3.4-5.0 [facility] Comment on above: Performed By: #### JAIME GODWIN #### [facility] [address] [place] [address] Dr. Sara Matos Albumin/Globulin [Mass ratio] 1.0 {ratio} Normal [facility] Comment on above: Performed By: #### JAIME GODWIN #### [facility] [address] [place] [address] Dr. Sara Matos ALP [Catalytic activity/Vol] 65 U/L Normal 46-116 [facility] Comment on above: Performed By: #### JAIME GODWIN #### [facility] [address] [place] [address] Dr. Sara Matos ALT [Catalytic activity/Vol] 52 U/L Normal 14-59 [facility] Comment on above: Performed By: #### JAIME GODWIN #### [facility] [address] [place] [address] Dr. Sara Matos Anion gap [Moles/Vol] 12.0 mmol/L Normal [facility] Comment on above: Performed By: #### JAIME GODWIN #### [facility] [address] [place] [address] Dr. Sara Matos AST [Catalytic activity/Vol] 28 U/L Normal 15-37 [facility] Comment on above: Performed By: #### JAIME GODWIN #### [facility] [address] [place] [address] Dr. Sara Matos Bilirubin [Mass/Vol] 0.4 mg/dL Normal 0.2-1.0 [facility] Comment on above: Performed By: #### KACY GODWINRO #### [facility] [address] [place] [address] Dr. Sara Matos Calcium [Mass/Vol] 9.5 mg/dL Normal 8.5-10.1 [facility] Comment on above: Performed By: #### KACY GODWINRO #### [facility] [address] [place] [address] Dr. Sara Matos Chloride [Moles/Vol] 103 mmol/L Normal 98-107 [facility] Comment on above: Performed By: #### KACY GODWINRO #### [facility] [address] [place] [address] Dr. Sara Matos CO2 [Moles/Vol] 26.7 mmol/L Normal 21.0-32.0 [facility] Comment on above: Performed By: #### KACY GODWINRO #### [facility] [address] [place] [address] Dr. Sara Matos Creatinine [Mass/Vol] 0.69 mg/dL Normal 0.55-1.02 [facility] Comment on above: Performed By: #### KACY GODWINRO #### [facility] [address] [place] [address] Dr. Sara Matos EGFR-AF SWISS >60 Normal >=60 [facility] Comment on above: Performed By: #### KACY GODWINRO #### [facility] [address] [place] [address] Dr. Sara Matos EGFR-NON AF SWISS >60 Normal >=60 [facility] Comment on above: Performed By: #### KACY GODWINRO #### [facility] [address] [address] [address] Sara Matos Globulin (S) [Mass/Vol] 3.9 g/dL Normal [facility] Comment on above: Performed By: #### Mery SINHA, UMICRO #### [facility] [address] [address] [address] Sara Matos Glucose [Mass/Vol] 84 mg/dL Normal 74-106 [facility] Comment on above: Performed By: #### Mery SINHA, UMICRO #### [facility] [address] [address] [address] Sara Matos Potassium [Moles/Vol] 3.7 mmol/L Normal 3.5-5.1 [facility] Comment on above: Performed By: #### Mery SINHA, UMICRO #### [facility] [address] [place] [address] Dr. Sara Matos Protein [Mass/Vol] 7.7 g/dL Normal 6.4-8.2 [facility] Comment on above: Performed By: #### Mery SINHA UMICRO #### [facility] [address] [address] [address] Sara Matos Sodium [Moles/Vol] 138 mmol/L Normal 136-145 [facility] Comment on above: Performed By: #### Mery SINHA, UMICRO #### [facility] [address] [address] [address] Sara Matos Urea nitrogen [Mass/Vol] 8.0 mg/dL Normal 7.0-18.0 [facility] Comment on above: Performed By: #### Mery SINHA, UMICRO #### [facility] [address] [address] [address] Sara Matos Urea nitrogen/Creatinine [Mass ratio] 11.6 mg/mg Normal [facility] Comment on above: Performed By: #### Mery SINHA, UMICRO #### [facility] [address] [address] [address] Sara Matos TROPONIN, HIGH SENSITIVITYon 01-19-2022 HSTROP <4.0 Normal 4.0-51.3 [facility] Comment on above: Result Comment: CUT- OFF POINTS HAVE BEEN ESTABLISHED BASED ON THE FOURTH UNIVERSAL DEFINITIONS OF MYOCARDIAL INFARCTION. THE UPPER REFERENCE LIMIT (URL) OF TROPONIN, DEFINED THE 99TH PERCENTILE OF cTnI DISTRIBUTION IN A REFERENCE POPULATION, HAS BEEN CONFIRMED THE DECISION THRESHOLD FOR [place] DIAGNOSIS. Performed By: #### E JAIME SINHA #### [facility] [address] [address] [address] Sara Matos XR CHEST 1 Von [...] by: DUSTY BUSCH Date: 2022-01-19 21:50 Normal [facility] US GUY DOP LEG LTon 12-26-19 [...] DE LA O Date: 2021-12-25 12:20 Normal [facility] XR CHEST 1 Von 12-25-2021 XR [...] by: PREM GUERRA Date: 2021-12-25 11:45 Normal [facility] U24 Proteinon 09-04-2017 PROTEIN:MCNC:24H:UR INE:QN: 102 mg/24hr Normal 28-141 [facility] Comment on above: Performed By: #### 2 [id number], [id number] ####[facility] [id number] [place] [address] ALBUMIN/PROTEIN.TOT AL:MFR:PT:URINE:QN: ELECTROPHORESIS 8.0 mg/dL Invalid Interpretation Code [facility] Comment on above: Result Comment: The reference range and other method performance specifications have not been established for this test; results should be integrated into the clinical context for interpretation. Performed By: #### 2 [id number], [id number] ####[facility] [address] [place] [address] U24 Total Volon 09-04-2017 Hrs Glenna 24 hour(s) Invalid Interpretation Code [facility] Comment on above: Order Comment: Order added by Discern Expert Performed By: #### 2 [id number], [id number] ####[facility] [address] [place] [address] SPECIMEN VOLUME:VOL:XXX:URIN E:QN: 1280 mL Invalid Interpretation Code [facility] Comment on above: Order Comment: Order added by Discern Expert Performed By: #### 2 [id number], [id number] ####[address] [address] Encounters Encounter Date Encounter Type Care Provider [...] Start: 09-04-2017 End: 09-05-2017 Ambulatory Jonah King Facility:[facility] Payers Date Payer Category Payer Unknown [id number] 2.16.84 [id number] 1995 Unknown [id number] 2.16.84 0.1.636934.3.579.2.593 1995 Unknown [id number] 2.16.84 0.1.596228.3.579.2.593 1995 Unknown [id number] 2.16.84 0.1.111430.3.579.2.593 1995 Unknown [id number] 2.16.84 0.1.346331.3.579.2.593 1995 Unknown [id number] 2.16.84 0.1.360612.3.579.2.593 1995 Unknown [id number] 2.16.84 0.1.659603.3.579.2.593 1995 Unknown [id number] 2.16.84 0.1.985167.3.579.2.593 1995 Unknown [id number] 2.16.84 0.1.128374.3.579.2.593 1995 Unknown [id number] 2.16.84 0.1.501615.3.579.2.593 1995 Unknown [id number] 2.16.84 0.1.184942.3.579.2.593 1995 Unknown [id number] 2.16.84 0.1.844464.3.579.2.593 1995 Unknown [id number] 2.16.84 0.1.809728.3.579.2.593 1995 Unknown [id number] 2.16.84 0.1.669305.3.579.2.593 1995 Unknown [id number] 2.16.84 0.1.939224.3.579.2.593 1995 Unknown [id number] 2.16.84 0.1.871560.3.579.2.1259 1995 Unknown [id number] 2.16.84 0.1.760777.3.579.2.1259 1959 Self-pay [id number] 1959 Unknown [id number] Summary Purpose Family History No Family History Records FoundNo Family History Records FoundNo Family History Records FoundNo Family History Records Found Advance Directives No Advanced Directives Records FoundNo Advanced Directives Records FoundNo Advanced Directives Records FoundNo Advanced Directives Records Found Additional Source Comments INFORMATION SOURCE (unrecogn ized section and content) DATE CREATED AUTHOR 02/04/2018 [facility] DATE CREATED AUTHOR AUTHOR'S ORGANIZ ATION 04/25/2022 [facility] DATE CREATED AUTHOR AUTHOR'S ORGANIZ ATION 12/13/2022 [facility] DATE CREATED AUTHOR AUTHOR'S ORGANIZ ATION 04/13/2024 [facility] EPIC FOR RECORDS PERTAINING TO [...] BE BASED ON THE PRIMARY CLINICAL RECORDS. [facility] [employer] [facility] provides no warranty or guarantee of the accuracy or completeness of information in this document.
== END 2024-05-15 09:57 | disposition home or self-care (01) ==
LOC: NOMS 09:56
PROVIDERS: PCP Nurse Practitioner Family; Visit Provider Physician Assistant
DX: Z36.2 Encounter for other antenatal screening follow-up (principal); Z3A.26 26 weeks gestation of pregnancy
CPT/HCPCS: 76815

== ENCOUNTER 2024-07-16 22:55 | Emergency (ER) | payer OTHER, SELFPAY ==
[2024-07-16 23:01] VITALS: PULSE 124; TEMP 36.7; O2SAT 97; BMI 47.2
[2024-07-16 23:11] VITALS: BP 132/72
--- OUTSIDE RECORDS SUMMARY | 2024-07-16 23:21 | XMS_ITS | CCD ---
Author Organization [facility] Care Team Providers Care Dance Therapist Name Role Phone Jonah York Unavailable Unavailable NONE, XXXX Unavailable Unavailable CHELE, CHANNING Admitting Unavailable CHELE, CHANNING Primary Care Unavailable CHELE, CHANNING Attending Unavailable TRINA, DR ANTONY Aguero Admitting Unavailable TRINA, DR ANTONY Aguero Attending Unavailable SPENCER ., ISABELA Consulting Unavailable CHELE, CHANNING Primary Care Unavailable [...] KENTRELL, DR WANDY Silva Attending Unavailabl e KENTRELL, DR WANDY Silva Admitting Unavailabl e HAY ., DR DAI Attending Unavailable HAY ., DR DAI Admitting Unavailable CHELE, CHANNING Primary Care Unavailable MARI, DR PREM Sanchez Consulting Unavailable ZIEBER, DR CHARLIE Aguero Consulting Unavailable HAY ., DR DAI Consulting Unavailable KARASIK ., DR SEAY Consulting Unavailabl e KARMADISONK ., DR SEAY Attending Unavailabl e KARASIK ., DR SEAY Admitting Unavailabl e CHELE, CHANNING Primary Care Unavailable ZIEBER, DR CHARLIE Aguero Consulting Unavailable JOSE ., DR MCDANIEL Admitting Unavailable CHELE, CHANNING Primary Care Unavailable JOSE ., DR MCDANIEL Attending Unavailable CHELE, CHANNING Primary Care Unavailable NURAARLENE SANDOVALINDA Admitting Unavailable NURASWEETIE SANDOVAL Attending Unavailable KARASIK ., DR SEAY Consulting Unavailabl e KARASIK ., DR SEAY Attending Unavailabl e KARASIK ., DR SEAY Admitting Unavailabl e CHELE, [facility] Primary Care Unavailable KARASIK ., DR SEAY Consulting Unavailabl e KARASIK ., DR SEAY Attending Unavailabl e KARASIK ., DR SEAY Admitting Unavailabl e CHELE, [facility] Primary Care Unavailable KARASIK ., DR SEAY Attending Unavailabl e KARASIK ., DR SEAY Admitting Unavailabl e CHELE, [facility] Primary Care Unavailable KARASIK ., DR SEAY Consulting Unavailabl e JAYLYN, DR CHARLIE Aguero Consulting Unavailable CHELE, [facility] Primary Care Unavailable KENTRELL, DR WANDY Silva Attending Unavailabl e KENTRELL, DR WANDY Silva Admitting Unavailabl e KENTRELL, DR WANDY Silva Consulting Unavailadi e LEAHY ., MR GUERRERO Consulting Unavailable JONAS GARCIA Attending Unavailable ISABELA PALMER Attending Unavailable JONAS GARCIA Attending Unavailable [facility] Primary Care Provider Unavailabl e Allergies Allergy Classification Reported Allergen(s) Allergy Type Date of Onset Reaction(s) Facility (2 sources) Escitalopram Drug Allergy 11-12-2021 [facility] Repository (3 sources) Escitalopram Drug Allergy 11-28-2021 Headache [facility] Work Phone: Medications Current Medications Medication Drug Class(es) Dates Sig (Normalized) Sig (Original) acetaminophen 21.7 mg/ml / dextromethorphan hydrobromide 0.667 mg/ml / phenylephrine hydrochloride 0.333 mg/ml oral solution (3 sources) Uncompetitive Z-rrvvkz-H-aspartate Receptor Antagonist, Sigma-1 Agonist, alpha-1 Adrenergic Agonist take 15 mL by mouth every four hours as needed for congestion phenylephrine-DM- APAP (Tylenol Cold Multi-Symptom) 5-10-325 mg/15 mL liquid Take 15 mL by mouth every 4 (four) hours if needed for congestion Active Problems Active Problems Problem Classification Problem Date [...] INFECT SEXUAL TRNSMS] Onset: 11-21-2022 Episodic Other complications of (2 sources) Excessive growth affecting management of mother; Translations: [Maternal care for excessive growth, unspecified trimester, not applicable or unspecified] 06-27-2024 Episodic Other and delivery including normal (10 sources) Encounter for supervision of other normal , second trimester; Translations: [Encounter for test, result positive] Onset: 09-07-2022 Episodic Other screening for suspected conditions (not mental disorders or infectious disease) (5 sources) Encounter for screening for diabetes mellitus; Translations: [Encounter for other specified screening] Onset: 12-06-2022 Episodic Residual codes; unclassified (2 sources) Gestation period, 32 weeks; Translations: [32 weeks gestation of ] 06-27-2024 Episodic Unclassified (1 source) COUGH, UNSPECIFIED; Translations: [COUGH, UNSPECIFIED] Onset: 12-26-2021 Unclassified (3 sources) OB Reminders Onset: 04-11-2024 04-11-2024 Past or Other Problems Problem Classification Problem Date Documented Date Episodic/Chronic Cardiac dysrhythmias (4 sources) Bradycardia, unspecified; Translations: [BRADYCARDIA UNSPECIFIED] Onset: 02-25-2022 Episodic Genitourinary symptoms and ill-defined conditions (4 sources) Dysuria; Translations: [DYSURIA] Onset: 06-06-2022 Episodic Other aftercare (1 source) Other lobsterman (current) drug therapy; Translations: [OTH ELECTRIC METER READER CURRENT DRUG THERAPY] Onset: 01-26-2022 Episodic Other aftercare (1 source) senior care (current) use of anticoagulants; Translations: [ELECTRIC METER READER CURRNT USE ANTICOAGULANTS] Onset: 12-26-2021 Episodic Other [...] 12-10-2022 Glucose [Mass/Vol] 98 mg/dL Normal 74-106 [facility] Comment on above: Performed By: #### G LU1HR #### [facility] [address] [address] [address] Sara Matos HEMOGRAM AND PLATELon 2022 Hematocrit (Bld) [Volume fraction] 33.8 % Critically low 36.0-48.[address] [facility] Comment on above: Performed By: #### T SH #### [facility] [address] [address] [address] Sara Matos Hemoglobin (Bld) [Mass/Vol] 11.1 g/dL Critically low 12.0-16.[address] [facility] Comment on above: Performed By: #### T SH #### [facility] [address] [address] [address] Sara Matos MCH (RBC) [Entitic mass] 28.6 pg Normal 26.7-34.[address] [facility] Comment on above: Performed By: #### T SH #### [facility] [address] [place] [address] Dr. Sara Matos MCHC (RBC) [Mass/Vol] 32.8 g/dL Normal 29.9-35.2 [facility] Comment on above: Performed By: #### T SH #### [facility] [address] [address] [address] Sara Matos MCV (RBC) [Entitic vol] 87.1 fL Normal 81.0-99.[address] [facility] Comment on above: Performed By: #### T SH #### [facility] [address] [address] [address] Sara Matos PLT 188 103/ul Normal 150-[address] [facility] Comment on above: Performed By: #### T SH #### [facility] [address] [address] [address] Sara Matos RBC 3.88 106/ul Critically low 4.20-5.40 [facility] Comment on above: Performed By: #### T SH #### [facility] [address] [address] [address] Sara Matos WBC 9.8 103/ul Normal 4.0-11.[address] [facility] Comment on above: Performed By: #### T SH #### [facility] [address] [address] [address] Sara Matos US PREG ANATOMY SINGLEon [...] LA O Date: 2022-12-02 15:25 Normal [facility] HEP B SURFACE ANTIGEN SCREEN on 11-18-2022 HBsAg Screen Negative Normal Negative [facility] Comment on above: Performed By: #### Mery SINHA, UMICRO #### [facility] [address] [place] [address] Dr. Sara Matos HEPATITIS C VIRUS AB W/ REFL EX QUANTon 11-18-2022 HCV AB Non-Reactive Normal Non Reactive [facility] Comment on above: Performed By: #### Mery SINHA, UMICRO #### [facility] [address] [place] [address] Dr. Sara Matos Interpretation: Comment Normal [facility] Comment on above: Result Comment: Not infected with HCV unless early or acute infection is suspected (which may be delayed in an immunocompromised individual), or other evidence exists to indicate HCV infection. Performed By: #### Mery SINHA, UMICRO #### [facility] [address] [place] [address] Dr. Sara Matos HIV 1 AND 2 WITH REFLEXon HIV Screen 4th Generation wRfx Non-Reactive Normal Non Reactive [facility] Comment on above: Result Comment: HIV Negative HIV-1/HIV-2 antibodies and HIV-1 p24 antigen were NOT detected. There is no laboratory evidence of HIV infection. Performed By: #### Mery SINHA, UMICRO #### [facility] [address] [place] [address] Dr. Sara Matos RPR QUANTon 11-18-2022 Rapid Plasma Reagin, Quant Non-Reactive Normal NonRea<1:1 [facility] Comment on above: Result Comment: Porsche yan Note: This test does not meet current guidelines for screening and diagnosis of syphilis. This test is intended for following treatment response in patients being treated for syphilis infection. To screen for syphilis infection, a reflex cascade that includes both RPR and a treponema-specific assay should be utilized, such as Treponema pallidum (Syphilis) Screening [place] (375937) or Rapid Plasma Reagin (RPR) Test With Reflex to Quantitative RPR and Confirmatory Treponema pallidum Antibodies ([id number]). Performed By: #### T SH #### [facility] [address] [place] [address] Dr. Sara Matos RUBELLA AB IGGon 11-18-2022 Rubella Antibodies, IgG 3.67 index Normal Immune >0.[address] [facility] Comment on above: Result Comment: Non- immune <0.90 Equivocal 0.90 - 0.99 Immune >0.99 Performed By: #### T SH #### [facility] [address] [place] [address] Dr. Sara Matos BOX TEST SENT OUTon 11-18-19 23 SENT TO REF LAB 11/17/2022 Normal [facility] Comment on above: Performed By: #### T SH #### [facility] [address] [place] [address] Dr. Sara Matos CBC AUTO DIFFon 11-17-2022 BASO # 0.0 103/ul Normal 0.0-0.1 [facility] Comment on above: Performed By: #### JAIME GODWIN #### [facility] [address] [place] [address] Dr. Sara Matos Basophils/100 WBC (Bld) 0.4 % Normal 0.2-2.0 [facility] Comment on above: Performed By: #### JAIME GODWIN #### [facility] [address] [place] [address] Dr. Sara Matos EO # 0.1 103/ul Normal 0.0-0.[address] [facility] Comment on above: Performed By: #### JAIME GODWIN #### [facility] [address] [place] [address] Dr. Sara Matos Eosinophils/100 WBC (Bld) 1.3 % Normal 0.9-7.[address] [facility] Comment on above: Performed By: #### KACY GODWINRO #### [facility] [address] [place] [address] Dr. Sara Matos Erythrocyte distribution width (RBC) [Ratio] 12.3 % Normal 11.0-15.[address] [facility] Comment on above: Performed By: #### KACY GODWINRO #### [facility] [address] [place] [address] Dr. Sara Matso Hematocrit (Bld) [Volume fraction] 33.6 % Critically low 36.0-48.[address] [facility] Comment on above: Performed By: #### KACY GODWINRO #### [facility] [address] [place] [address] Dr. Sara Matos Hemoglobin (Bld) [Mass/Vol] 11.3 g/dL Critically low 12.0-16.[address] [facility] Comment on above: Performed By: #### KACY GODWINRO #### [facility] [address] [place] [address] Dr. Sara Matos IG # 0.04 10e3/ul Critically high 0.00-0.03 [facility] Comment on above: Performed By: #### KACY GODWINRO #### [facility] [address] [place] [address] Dr. Sara Matos IG % 0.4 % Normal 0.0-0.5 [facility] Comment on above: Performed By: #### AKCY GODWINRO #### [facility] [address] [place] [address] Dr. Sara Matos LYMPH # 1.7 103/ul Normal 1.2-3.[address] [facility] Comment on above: Performed By: #### KACY GODWINRO #### [facility] [address] [place] [address] Dr. Sara Matos Lymphocytes/100 WBC (Bld) 16.7 % Critically low 20.5-60.0 [facility] Comment on above: Performed By: #### KACY GODWINRO #### [facility] [address] [place] [address] Dr. Sara Matos MANUAL DIFF REQ NO Normal [facility] Comment on above: Performed By: #### KACY GODWINRO #### [facility] [address] [place] [address] Dr. Sara Matos MCH (RBC) [Entitic mass] 28.8 pg Normal 26.7-34.0 [facility] Comment on above: Performed By: #### KACY GODWINRO #### [facility] [address] [place] [address] Dr. Sara Matos MCHC (RBC) [Mass/Vol] 33.6 g/dL Normal 29.9-35.2 [facility] Comment on above: Performed By: #### KACY GODWINRO #### [facility] [address] [place] [address] Dr. Sara Matos MCV (RBC) [Entitic vol] 85.5 fL Normal 81.0-99.0 [facility] Comment on above: Performed By: #### KACY GODWINRO #### [facility] [address] [place] [address] Dr. Sara Matos MONO # 0.6 103/ul Normal 0.3-0.8 [facility] Comment on above: Performed By: #### KACY GODWINRO #### [facility] [address] [place] [address] Dr. Sara Matos Monocytes/100 WBC (Bld) 5.9 % Normal 1.7-12.0 [facility] Comment on above: Performed By: #### KACY GODWINRO #### [facility] [address] [place] [address] Dr. Sara Matos NEUT # 7.7 103/ul Critically high 1.4-6.5 [facility] Comment on above: Performed By: #### E RUR, UMICRO #### [facility] [address] [address] [address] Sara Matos Neutrophils/100 WBC (Bld) 75.3 % Critically high 43.0-75.[address] [facility] Comment on above: Performed By: #### E BHARATH, UMICRO #### [facility] [address] [address] [address] Sara Matos Platelet mean volume (Bld) [Entitic vol] 11.2 fL Normal 9.5-13.[address] [facility] Comment on above: Performed By: #### E BHARATH, UMICRO #### [facility] [address] [place] [address] Dr. Sara Matos PLT 217 103/ul Normal 150-[address] [facility] Comment on above: Performed By: #### Mery SINHA, UMICRO #### [facility] [address] [place] [address] Dr. Sara Matos RBC 3.93 106/ul Critically low 4.20-5.40 [facility] Comment on above: Performed By: #### E BHARATH, UMICRO #### [facility] [address] [address] [address] Sara Matos WBC 10.2 103/ul Normal 4.0-11.[address] [facility] Comment on above: Performed By: #### Mery SINHA, UMICRO #### [facility] [address] [place] [address] Dr. Sara Matos CULTURE URINEon 11-17-2022 CULTURE URINE Culture Observations : HEAVY GROWTH OF MIXED GENITAL JP. NO POTENTIAL PATHOGENS SEEN. Normal [facility] Comment on above: Performed By: #### Mery SINHA, UMICRO #### [facility] [address] [place] [address] Dr. Sara Matos DRUG SCREEN RAPID (URINE)on 11-17-2022 AMP Negative Normal NEGATIVE [facility] Comment on above: Performed By: #### P REGU, DRUGRPD #### [facility] [address] [place] [address] Dr. Sara Matos BAR Negative Normal NEGATIVE [facility] Comment on above: Performed By: #### P REGU, DRUGRPD #### [facility] [address] [address] [address] Sara Matos BUP Negative Normal NEGATIVE [facility] Comment on above: Performed By: #### P REGU, DRUGRPD #### [facility] [address] [place] [address] Dr. Sara Matos BZO Negative Normal NEGATIVE [facility] Comment on above: Performed By: #### P REGU, DRUGRPD #### [facility] [address] [address] [address] Sara Matos COLLEEN Negative Normal NEGATIVE [facility] Comment on above: Performed By: #### P REGU, DRUGRPD #### [facility] [address] [place] [address] Dr. Sara Matos CUT-OFFS SEE BELOW Normal [facility] Comment on above: Result Comment: AMP (Amphetamine): [...] Performed By: #### P REGU, DRUGRPD #### [facility] [address] [place] [address] Dr. Sara Matos DRUG CUT HEADER DRUG CLASS TEST SYSTEM CUT-OFF CONCENTRATIONS ARE FOLLOWS: Normal [facility] Comment on above: Performed By: #### P REGU, DRUGRPD #### [facility] [address] [place] [address] Dr. Sara Matos mAMP Negative Normal NEGATIVE [facility] Comment on above: Performed By: #### P REGU, DRUGRPD #### [facility] [address] [address] [address] Sara Matos MTD Negative Normal NEGATIVE [facility] Comment on above: Performed By: #### P REGU, DRUGRPD #### [facility] [address] [address] [address] Sara Matos OPI Negative Normal NEGATIVE [facility] Comment on above: Performed By: #### P REGU, DRUGRPD #### [facility] [address] [address] [address] Sara Matos OXY Negative Normal NEGATIVE [facility] Comment on above: Performed By: #### P REGU, DRUGRPD #### [facility] [address] [address] [address] Sara Matos PCP Negative Normal NEGATIVE [facility] Comment on above: Performed By: #### P REGU, DRUGRPD #### [facility] [address] [address] [address] Sara Matos PPX Negative Normal NEGATIVE [facility] Comment on above: Performed By: #### P REGU, DRUGRPD #### [facility] [address] [address] [address] Sara Matos TCA Negative Normal NEGATIVE [facility] Comment on above: Performed By: #### P REGU, DRUGRPD #### [facility] [address] [place] [address] Dr. Sara Matos THC Negative Normal NEGATIVE [facility] Comment on above: Performed By: #### P REGU, DRUGRPD #### [facility] [address] [place] [address] Dr. Sara Matos GLYCOHEMOGLOBIN A1Con 2022 ADA RECOMMENDATION SEE BELOW Normal [facility] Comment on above: Result Comment: ADA RECOMMENDED LIMIT 4.0 - 6.0 ADA THERAPEUTIC TARGET < 7.0 ACTION SUGGESTED > 7.0 Performed By: #### A 1C #### [facility] [address] [place] [address] Dr. Sara Matos Glucose [Mass/Vol] 85 mg/dL Normal [facility] Comment on above: Performed By: #### A 1C #### [facility] [address] [address] [address] Sara Matos HbA1c (Bld) [Mass fraction] 4.6 % Normal 4.5-6.2 [facility] Comment on above: Performed By: #### A 1C #### [facility] [address] [address] [address] Sara Matos URon 11-17-2022 , QUAL Positive Abnormal NEGATIVE [facility] Comment on above: Performed By: #### P REGU, DRUGRPD #### [facility] [address] [address] [address] Sara Matos TYPE AND SCREENon 11-17-2022 TYPE AND SCREEN Negative Normal [facility] Comment on above: Performed By: #### E RUR, UMICRO #### [facility] [address] [place] [address] Dr. Sara Matos US PREG DATING >[id number] [...] LA O Date: 2022-09-07 10:38 Normal [facility] CHLAMYDIA/GONOCOCCUS DEENA (SW AB/URINE/PAPon 06-10-2022 Chlamydia trachomatis, DEENA Negative Normal Negative [facility] Comment on above: Performed By: #### T SH #### [facility] [address] [place] [address] Dr. Sara Matos Neisseria gonorrhoeae, DEENA Negative Normal Negative [facility] Comment on above: Performed By: #### T SH #### [facility] [address] [place] [address] Dr. Sara Matos GENITAL CULTUREon 06-09-2022 Genital Culture, Routine NOBACT Normal [facility] Comment on above: Result Comment: Test not [...] apply to this specimen.) Performed By: #### Mery SINHA UMICRO #### [facility] [address] [place] [address] Dr. Sara Matos ER URINE PROFILEon Bilirubin Ql (U) Negative Normal NEGATIVE [facility] Comment on above: Performed By: #### Mery SINHA UMICRO #### [facility] [address] [place] [address] Dr. Saar Matos Clarity (U) CLEAR Normal CLEAR [facility] Comment on above: Performed By: #### Mery SINHA UMICRO #### [facility] [address] [place] [address] Dr. Sara Matos Color (U) LT. YELLOW Normal YELLOW [facility] Comment on above: Performed By: #### Mery SINHA UMICRO #### [facility] [address] [place] [address] Dr. Sara Matos ERUAHD A micrscopic examination will be performed if indicated. Normal [facility] Comment on above: Performed By: #### Mery SINHA UMICRO #### [facility] [address] [place] [address] Dr. Sara Matos Glucose Ql (U) Negative Normal NEGATIVE [facility] Comment on above: Performed By: #### Mery SINHA UMICRO #### [facility] [address] [place] [address] Dr. Sara Matos Hemoglobin Ql (U) Negative Normal NEGATIVE [facility] Comment on above: Performed By: #### KACY GODWINRO #### [facility] [address] [place] [address] Dr. Sara Matos Ketones Ql (U) Negative Normal NEGATIVE [facility] Comment on above: Performed By: #### KACY GODWINRO #### [facility] [address] [place] [address] Dr. Sara Matos LEUKOCYTES TRACE Abnormal NEGATIVE [facility] Comment on above: Performed By: #### KACY GODWINRO #### [facility] [address] [place] [address] Dr. Sara Matos Nitrite Ql (U) Negative Normal NEGATIVE [facility] Comment on above: Performed By: #### KACY GODWINRO #### [facility] [address] [place] [address] Dr. Sara Matos pH (U) 6.0 [pH] Normal 5-9 [facility] Comment on above: Performed By: #### KACY GODWINRO #### [facility] [address] [place] [address] Dr. Sara Matos SPEC GRAVITY 1.015 Normal 1.005-<=1.025 [facility] Comment on above: Performed By: #### KACY GODWINRO #### [facility] [address] [place] [address] Dr. Sara Matos UA PROTEIN Negative Normal NEGATIVE/ TRACE [facility] Comment on above: Performed By: #### FLORENTINO GODWINICRO #### [facility] [address] [place] [address] Dr. Sara Matos UR MICRO IND INDICATED Normal [facility] Comment on above: Performed By: #### KACY GODWINRO #### [facility] [address] [place] [address] Dr. Sara Matos Urobilinogen Qn (U) 0.2 {Ana'U}/dL Normal 0.2 - 1. 0 [facility] Comment on above: Performed By: #### E RUR, UMICRO #### [facility] [address] [place] [address] Dr. Sara Matos URon 06-06-2022 , QUAL Negative Normal NEGATIVE [facility] [facility] Comment on above: Performed By: #### P REGU #### [facility] [address] [place] [address] Dr. Sara Matos URINE MICROSCOPIC ONLYon BACTERIA NONE SEEN Normal NONE SEEN [facility] Comment on above: Performed By: #### E RUR, UMICRO #### [facility] [address] [place] [address] Dr. Sara Matos Bacteria identified Cx Nom (U) NOT INDICATED Normal [facility] Comment on above: Performed By: #### E RUR, UMICRO #### [facility] [address] [place] [address] Dr. Sara Matos CAST NONE SEEN Normal NONE SEEN [facility] Comment on above: Performed By: #### E RUR, UMICRO #### [facility] [address] [place] [address] Dr. Sara Matos Crystals LM Nom (Urine sed) NONE SEEN Normal NONE SEEN [facility] Comment on above: Performed By: #### E RUR, UMICRO #### [facility] [address] [place] [address] Dr. Sara Matos Epithelial cells LM Ql (Urine sed) FEW Abnormal NONE SEEN /RARE [facility] Comment on above: Performed By: #### E RUR, UMICRO #### [facility] [address] [place] [address] Dr. Sraa Matos MUCOUS NONE SEEN Normal NONE SEEN [facility] Comment on above: Performed By: #### E RUR, UMICRO #### [facility] [address] [place] [address] Dr. Sara Matos RBC NONE SEEN Abnormal 0-2 [facility] Comment on above: Performed By: #### E RUR, UMICRO #### [facility] [address] [address] [address] Sara Matos WBC 0-2 Abnormal NONE SEEN [facility] Comment on above: Performed By: #### E JAIME SINHA #### [facility] [address] [address] [address] Sara Matos WET PREPon 06-06-2022 CLUE CELLS NONE SEEN Normal NONE SEEN [facility] Comment on above: Performed By: #### T SH #### [facility] [address] [address] [address] Sara Matos FUNGAL ELEMENTS NONE SEEN Normal NONE SEEN [facility] Comment on above: Performed By: #### T SH #### [facility] [address] [address] [address] Sara Matos RBC -WET PREP NONE SEEN Normal NONE SEEN The [facility] Comment on above: Performed By: #### T SH #### [facility] [address] [address] [address] Sara Matos TRICHOMONAS NONE SEEN Normal NONE SEEN [facility] Comment on above: Performed By: #### T SH #### [facility] [address] [address] [address] Sara Matos WBC- WET PREP FEW Abnormal NONE SEEN [facility] Comment on above: Performed By: #### T SH #### [facility] [address] [address] [address] Sara Matos WET PREP BACTERIA NONE SEEN Normal NONE SEEN [facility] Comment on above: Performed By: #### T SH #### [facility] [address] [address] [address] Sara Matos Abstracton 04-25-2022 Abstract [id number] Astrid Montague 1995 F Date Provider Department Center 04/25/2022 LILIAN AGUIRRE [facility] Family History Problem Relation Age of Onset Heart attack Maternal Grandmother Coronary artery disease Maternal Grandmother Family Status - Relation Status Age at Maternal Grandmother Paternal Grandmother Normal [facility] Abstracton 04-22-2022 Abstract [id number] Astrid Montague 1995 F Date Provider Department Center 04/22/2022 YURIDIA CARO [facility] Family History Problem Relation Age of Onset Heart attack Paternal Grandmother Family Status - Relation Status Age at Paternal Grandmother Normal [facility] US GUY DOP LEG LTon 04-01-20 22 US GUY DOP LEG LT EXAMINATION: [...] DE LA O Date: 2022-04-01 17:[address] [facility] METANEPHRINES PLASMA FREEon 02-04-2022 Metanephrine, Pl 13.7 pg/mL Normal 0.0-88.0 [facility] Comment on above: Performed By: #### P URIEL DRUGRPD #### [facility] [address] [address] [address] Sara Matos Normetanephrine, Pl 45.6 pg/mL Normal 0.0-210.1 [facility] Comment on above: Performed By: #### P URIEL, DRUGRPD #### [facility] [address] [address] [address] Sara Matos CARDIAC ANTONY ADMITon 022 CK [Catalytic activity/Vol] 67 U/L Normal 26-[address] [facility] Comment on above: Performed By: #### T SH #### [facility] [address] [address] [address] Sara Matos CK.MB [Mass/Vol] 0.99 ng/mL Normal <=3.60 [facility] Comment on above: Performed By: #### T SH #### [facility] [address] [address] [address] Sara Matos HSTROP 4.7 pg/mL Normal 4.0-51.[address] [facility] Comment on above: Result Comment: CUT- OFF POINTS HAVE BEEN ESTABLISHED BASED ON THE FOURTH UNIVERSAL DEFINITIONS OF MYOCARDIAL INFARCTION. THE UPPER REFERENCE LIMIT (URL) OF TROPONIN, DEFINED THE 99TH PERCENTILE OF cTnI DISTRIBUTION IN A REFERENCE POPULATION, HAS BEEN CONFIRMED THE DECISION THRESHOLD FOR CA DIAGNOSIS. Performed By: #### T SH #### [facility] [address] [place] [address] Dr. Sara Matos ELENA 34 ng/mL Normal 9-82 [facility] Comment on above: Performed By: #### T SH #### [facility] [address] [place] [address] Dr. Sara Matos CBC AUTO DIFFon 01-30-2022 BASO # 0.1 103/ul Normal 0.0-0.[address] [facility] Comment on above: Performed By: #### T SH #### [facility] [address] [place] [address] Dr. Sara Matos Basophils/100 WBC (Bld) 0.8 % Normal 0.2-2.[address] [facility] Comment on above: Performed By: #### T SH #### [facility] [address] [place] [address] Dr. Sara Matos EO # 0.1 103/ul Normal 0.0-0.[address] [facility] Comment on above: Performed By: #### T SH #### [facility] [address] [place] [address] Dr. Sara Matos Eosinophils/100 WBC (Bld) 0.6 % Critically low 0.9-7.[address] [facility] Comment on above: Performed By: #### T SH #### [facility] [address] [place] [address] Dr. Sara Matos Erythrocyte distribution width (RBC) [Ratio] 13.6 % Normal 11.0-15.0 [facility] Comment on above: Performed By: #### T SH #### [facility] [address] [place] [address] Dr. Sara Matos Hematocrit (Bld) [Volume fraction] 40.4 % Normal 36.0-48.0 [facility] Comment on above: Performed By: #### T SH #### [facility] [address] [place] [address] Dr. Sara Matos Hemoglobin (Bld) [Mass/Vol] 13.0 g/dL Normal 12.0-16.[address] [facility] Comment on above: Performed By: #### T SH #### [facility] [address] [place] [address] Dr. Sara Matos IG # 0.03 10e3/ul Normal 0.00-0.[address] [facility] Comment on above: Performed By: #### T SH #### [facility] [address] [place] [address] Dr. Sara Matos IG % 0.3 % Normal 0.0-0.[address] [facility] Comment on above: Performed By: #### T SH #### [facility] [address] [place] [address] Dr. Sara Matos LYMPH # 2.6 103/ul Normal 1.2-3.8 [facility] Comment on above: Performed By: #### T SH #### [facility] [address] [place] [address] Dr. Sara Matos Lymphocytes/100 WBC (Bld) 26.5 % Normal 20.5-60.[address] [facility] Comment on above: Performed By: #### T SH #### [facility] [address] [place] [address] Dr. Sara Matos MANUAL DIFF REQ NO Normal [facility] Comment on above: Performed By: #### T SH #### [facility] [address] [place] [address] Dr. Sara Matos MCH (RBC) [Entitic mass] 26.9 pg Normal 26.7-34.0 [facility] Comment on above: Performed By: #### T SH #### [facility] [address] [place] [address] Dr. Sara Matos MCHC (RBC) [Mass/Vol] 32.2 g/dL Normal 29.9-35.2 [facility] Comment on above: Performed By: #### T SH #### [facility] [address] [place] [address] Dr. Sara Matos MCV (RBC) [Entitic vol] 83.6 fL Normal 81.0-99.0 [facility] Comment on above: Performed By: #### T SH #### [facility] [address] [place] [address] Dr. Sara Matos MONO # 0.6 103/ul Normal 0.3-0.8 [facility] Comment on above: Performed By: #### T SH #### [facility] [address] [place] [address] Dr. Sara Matos Monocytes/100 WBC (Bld) 6.4 % Normal 1.7-12.0 [facility] Comment on above: Performed By: #### T SH #### [facility] [address] [place] [address] Dr. Sara Matos NEUT # 6.3 103/ul Normal 1.4-6.5 [facility] Comment on above: Performed By: #### T SH #### [facility] [address] [place] [address] Dr. Sara Matos Neutrophils/100 WBC (Bld) 65.4 % Normal 43.0-75.0 [facility] Comment on above: Performed By: #### T SH #### [facility] [address] [place] [address] Dr. Sara Matos Platelet mean volume (Bld) [Entitic vol] 11.8 fL Normal 9.5-13.5 [facility] Comment on above: Performed By: #### T SH #### [facility] [address] [place] [address] Dr. Sara Matos PLT 218 103/ul Normal 150-450 [facility] Comment on above: Performed By: #### T SH #### [facility] [address] [place] [address] Dr. Sara Matos RBC 4.83 106/ul Normal 4.20-5.40 [facility] Comment on above: Performed By: #### T SH #### [facility] [address] [place] [address] Dr. Sara Matos WBC 9.6 103/ul Normal 4.0-11.[address] [facility] Comment on above: Performed By: #### T SH #### [facility] [address] [place] [address] Dr. Sara Matos ER URINE PROFILEon 2 Bilirubin Ql (U) Negative Normal NEGATIVE [facility] Comment on above: Performed By: #### E RUR, UMICRO #### [facility] [address] [place] [address] Dr. Sara Matos Clarity (U) CLEAR Normal CLEAR [facility] Comment on above: Performed By: #### E RUR, UMICRO #### [facility] [address] [place] [address] Dr. Sara Matos Color (U) LT. YELLOW Normal YELLOW [facility] Comment on above: Performed By: #### E RUR, UMICRO #### [facility] [address] [place] [address] Dr. Sara BUCKNER A micrscopic examination will be performed if indicated. Normal [facility] Comment on above: Performed By: #### E RUR, UMICRO #### [facility] [address] [place] [address] Dr. Sara Matos Glucose Ql (U) Negative Normal NEGATIVE [facility] Comment on above: Performed By: #### E RUR, UMICRO #### [facility] [address] [place] [address] Dr. Sara Matos Hemoglobin Ql (U) LARGE Abnormal NEGATIVE [facility] Comment on above: Performed By: #### E RUR, UMICRO #### [facility] [address] [place] [address] Dr. Sara Matos Ketones Ql (U) Negative Normal NEGATIVE [facility] Comment on above: Performed By: #### E RUR, UMICRO #### [facility] [address] [place] [address] Dr. aSra Matos LEUKOCYTES Negative Normal NEGATIVE [facility] Comment on above: Performed By: #### E RUR, UMICRO #### [facility] [address] [place] [address] Dr. Sara Matos Nitrite Ql (U) Negative Normal NEGATIVE [facility] Comment on above: Performed By: #### KACY GODWINRO #### [facility] [address] [place] [address] Dr. Sara Matos pH (U) 6.0 [pH] Normal 5-[address] [facility] Comment on above: Performed By: #### KACY GODWINRO #### [facility] [address] [place] [address] Dr. Sara Matos SPEC GRAVITY <=1.005 Abnormal 1.005-<=1.025 [facility] Comment on above: Performed By: #### KACY GODWINRO #### [facility] [address] [place] [address] Dr. Sara Matos UA PROTEIN Negative Normal NEGATIVE/ TRACE [facility] Comment on above: Performed By: #### KACY GODWINRO #### [facility] [address] [place] [address] Dr. Sara Matos UR MICRO IND INDICATED Normal [facility] Comment on above: Performed By: #### KACY GODWINRO #### [facility] [address] [place] [address] Dr. Sara Matos Urobilinogen Qn (U) 0.2 {Ana'U}/dL Normal 0.2 - 1. [address] [facility] Comment on above: Performed By: #### KACY GODWINRO #### [facility] [address] [place] [address] Dr. Sara Matos PREG HCG QUALon 01-30-2022 , QUAL Negative Normal NEGATIVE [facility] Comment on above: Performed By: #### KACY GODWINRO #### [facility] [address] [place] [address] Dr. Sara Matos PROF 14(COMP METB)on 022 Albumin [Mass/Vol] 4.3 g/dL Normal 3.4-5.0 [facility] Comment on above: Performed By: #### T SH #### [facility] [address] [place] [address] Dr. Sara Matos Albumin/Globulin [Mass ratio] 1.2 {ratio} Normal [facility] Comment on above: Performed By: #### T SH #### [facility] [address] [place] [address] Dr. Sara Matos ALP [Catalytic activity/Vol] 63 U/L Normal 46-[address] [facility] Comment on above: Performed By: #### T SH #### [facility] [address] [place] [address] Dr. Sara Matos ALT [Catalytic activity/Vol] 35 U/L Normal 14-[address] [facility] Comment on above: Performed By: #### T SH #### [facility] [address] [place] [address] Dr. Sara Matos Anion gap [Moles/Vol] 9.7 mmol/L Normal [facility] Comment on above: Performed By: #### T SH #### [facility] [address] [place] [address] Dr. Sara Matos AST [Catalytic activity/Vol] 19 U/L Normal 15-[address] [facility] Comment on above: Performed By: #### T SH #### [facility] [address] [place] [address] Dr. Sara Mtaos Bilirubin [Mass/Vol] 0.4 mg/dL Normal 0.2-1.[address] [facility] Comment on above: Performed By: #### T SH #### [facility] [address] [place] [address] Dr. Sara Matos Calcium [Mass/Vol] 9.3 mg/dL Normal 8.5-10.1 [facility] Comment on above: Performed By: #### T SH #### [facility] [address] [place] [address] Dr. Sara Matos Chloride [Moles/Vol] 101 mmol/L Normal 98-107 [facility] Comment on above: Performed By: #### T SH #### [facility] [address] [place] [address] Dr. Sara Matos CO2 [Moles/Vol] 27.8 mmol/L Normal 21.0-32.0 [facility] Comment on above: Performed By: #### T SH #### [facility] [address] [place] [address] Dr. Sara Matos Creatinine [Mass/Vol] 0.78 mg/dL Normal 0.55-1.02 [facility] Comment on above: Performed By: #### T SH #### [facility] [address] [address] [address] Sara Matos EGFR-AF LAO >60 Normal >=60 [facility] Comment on above: Performed By: #### T SH #### [facility] [address] [place] [address] Dr. Sara Matos EGFR-NON AF LAO >60 Normal >=60 [facility] Comment on above: Performed By: #### T SH #### [facility] [address] [place] [address] Dr. Sara Matos Globulin (S) [Mass/Vol] 3.5 g/dL Normal [facility] Comment on above: Performed By: #### T SH #### [facility] [address] [place] [address] Dr. Sara Matos Glucose [Mass/Vol] 89 mg/dL Normal 74-106 [facility] Comment on above: Performed By: #### T SH #### [facility] [address] [place] [address] Dr. Sara Matos Potassium [Moles/Vol] 3.5 mmol/L Normal 3.5-5.1 [facility] Comment on above: Performed By: #### T SH #### [facility] [address] [place] [address] Dr. Sara Matos Protein [Mass/Vol] 7.8 g/dL Normal 6.4-8.2 [facility] Comment on above: Performed By: #### T SH #### [facility] [address] [place] [address] Dr. Sara Matos Sodium [Moles/Vol] 135 mmol/L Critically low 136-145 [facility] Comment on above: Performed By: #### T SH #### [facility] [address] [place] [address] Dr. Sara Matos Urea nitrogen [Mass/Vol] 6.0 mg/dL Critically low 7.0-18.[address] [facility] Comment on above: Performed By: #### T SH #### [facility] [address] [place] [address] Dr. Sara Matos Urea nitrogen/Creatinine [Mass ratio] 7.7 mg/mg Normal [facility] Comment on above: Performed By: #### T SH #### [facility] [address] [place] [address] Dr. Sara Matos URINE MICROSCOPIC ONLYon BACTERIA NONE SEEN Normal NONE SEEN [facility] Comment on above: Performed By: #### E LONDONR, UMICRO #### [facility] [address] [place] [address] Dr. Sara Matos Bacteria identified Cx Nom (U) NOT INDICATED Normal [facility] Comment on above: Performed By: #### Mery CALLAHANR, UMICRO #### [facility] [address] [place] [address] Dr. Sara Matos CAST NONE SEEN Normal NONE SEEN [facility] Comment on above: Performed By: #### E LONDONR, UMICRO #### [facility] [address] [place] [address] Dr. Sara Matos Crystals LM Nom (Urine sed) NONE SEEN Normal NONE SEEN [facility] Comment on above: Performed By: #### E RUR, UMICRO #### [facility] [address] [place] [address] Dr. Sara Matos Epithelial cells LM Ql (Urine sed) RARE Normal NONE SEEN /RARE [facility] Comment on above: Performed By: #### E RUR, UMICRO #### [facility] [address] [place] [address] Dr. Sara Matos MUCOUS NONE SEEN Normal NONE SEEN [facility] Comment on above: Performed By: #### E RUR, UMICRO #### [facility] [address] [place] [address] Dr. Sara Matos RBC 0-2 Normal 0-2 [facility] Comment on above: Performed By: #### KACY GODWINRO #### [facility] [address] [place] [address] Dr. Sara Matos WBC 0-2 Abnormal NONE SEEN [facility] Comment on above: Performed By: #### Mery SINHA UMICRO #### [facility] [address] [place] [address] Dr. Sara Matos CBC AUTO DIFFon 01-24-2022 BASO # 0.1 103/ul Normal 0.0-0.1 [facility] Comment on above: Performed By: #### Mery SINHA UMICRO #### [facility] [address] [place] [address] Dr. Sara Matos Basophils/100 WBC (Bld) 0.5 % Normal 0.2-2.0 [facility] Comment on above: Performed By: #### Mery SINHA UMJONIRO #### [facility] [address] [place] [address] Dr. Sara Matos EO # 0.0 103/ul Normal 0.0-0.[address] [facility] Comment on above: Performed By: #### Mery SINHA UMICRO #### [facility] [address] [place] [address] Dr. Sara Matos Eosinophils/100 WBC (Bld) 0.4 % Critically low 0.9-7.0 [facility] Comment on above: Performed By: #### Mery SINHA, UMICRO #### [facility] [address] [place] [address] Dr. Sara Matos Erythrocyte distribution width (RBC) [Ratio] 13.3 % Normal 11.0-15.0 [facility] Comment on above: Performed By: #### Mery SINHA, UMICRO #### [facility] [address] [place] [address] Dr. Saar Matos Hematocrit (Bld) [Volume fraction] 39.4 % Normal 36.0-48.0 [facility] Comment on above: Performed By: #### Mery SINHA UMICRO #### [facility] [address] [place] [address] Dr. Sara Matos Hemoglobin (Bld) [Mass/Vol] 12.9 g/dL Normal 12.0-16.[address] [facility] Comment on above: Performed By: #### Mery SINHA UMICRO #### [facility] [address] [place] [address] Dr. Sara Matos IG # 0.03 10e3/ul Normal 0.00-0.[address] [facility] Comment on above: Performed By: #### Mery SINHA UMICRO #### [facility] [address] [place] [address] Dr. Sara Matos IG % 0.3 % Normal 0.0-0.[address] [facility] Comment on above: Performed By: #### Mery SINHA UMICRO #### [facility] [address] [place] [address] Dr. Sara Matos LYMPH # 2.8 103/ul Normal 1.2-3.8 [facility] Comment on above: Performed By: #### FLORENTINO GODWINICRO #### [facility] [address] [place] [address] Dr. Sara Matos Lymphocytes/100 WBC (Bld) 25.3 % Normal 20.5-60.[address] [facility] Comment on above: Performed By: #### FLORENTINO GODWINICRO #### [facility] [address] [place] [address] Dr. Sara Matos MANUAL DIFF REQ NO Normal [facility] Comment on above: Performed By: #### Mery SINHA UMICRO #### [facility] [address] [place] [address] Dr. Sara Matos MCH (RBC) [Entitic mass] 26.5 pg Critically low 26.7-34.[address] [facility] Comment on above: Performed By: #### Mery SINHA UMICRO #### [facility] [address] [place] [address] Dr. Sara Matos MCHC (RBC) [Mass/Vol] 32.7 g/dL Normal 29.9-35.2 [facility] Comment on above: Performed By: #### Mery SINHA UMICRO #### [facility] [address] [place] [address] Dr. Sara Matos MCV (RBC) [Entitic vol] 80.9 fL Critically low 81.0-99.0 [facility] Comment on above: Performed By: #### Mery SINHA, UMICRO #### [facility] [address] [place] [address] Dr. Sara Matos MONO # 0.8 103/ul Normal 0.3-0.8 [facility] Comment on above: Performed By: #### Mery SINHA, UMICRO #### [facility] [address] [place] [address] Dr. Sara Matos Monocytes/100 WBC (Bld) 6.8 % Normal 1.7-12.0 [facility] Comment on above: Performed By: #### Mery SINHA, UMICRO #### [facility] [address] [place] [address] Dr. Sara Matos NEUT # 7.4 103/ul Critically high 1.4-6.5 [facility] Comment on above: Performed By: #### Mery SINHA, UMICRO #### [facility] [address] [place] [address] Dr. Sara Matos Neutrophils/100 WBC (Bld) 66.7 % Normal 43.0-75.0 [facility] Comment on above: Performed By: #### Mery SINHA, UMICRO #### [facility] [address] [place] [address] Dr. Saar Matos Platelet mean volume (Bld) [Entitic vol] 11.3 fL Normal 9.5-13.5 [facility] Comment on above: Performed By: #### Mery SINHA, UMICRO #### [facility] [address] [place] [address] Dr. Sara Matos PLT 281 103/ul Normal 150-450 [facility] Comment on above: Performed By: #### JAIME GODWIN #### [facility] [address] [place] [address] Dr. Sara Matos RBC 4.87 106/ul Normal 4.20-5.40 [facility] Comment on above: Performed By: #### JAIME GODWIN #### [facility] [address] [place] [address] Dr. Sara Matos WBC 11.1 103/ul Critically high 4.0-11.0 [facility] Comment on above: Performed By: #### JAIME GODWIN #### [facility] [address] [place] [address] Dr. Sara Matos MAGNESIUMon 01-24-2022 Magnesium [Mass/Vol] 2.0 mg/dL Normal 1.8-2.[address] [facility] Comment on above: Performed By: #### JAIME GODWIN #### [facility] [address] [place] [address] Dr. Sara Matos T3 UPTAKEon 01-24-2022 T3U 37.0 % Normal 30.0-39.[address] [facility] Comment on above: Performed By: #### T 3UP #### [facility] [address] [place] [address] Dr. Sara Matos T4on 01-24-2022 T4 [Mass/Vol] 11.60 ug/dL Normal 4.80-13.[address] [facility] Comment on above: Performed By: #### T 4 #### [facility] [address] [place] [address] Dr. Sara Matos TSHon 01-24-2022 TSH 0.547 uIU/mL Normal 0.358-3.740 [facility] Comment on above: Performed By: #### T SH #### [facility] [address] [place] [address] Dr. Sara Matos TSH RANGE SEE BELOW Normal [facility] Comment on above: Result Comment: <0.3 4 UIU/ml HYPERTHYROID 0.34-5.60 UIU/ml EUTHYROID >5.60 UIU/ml HYPOTHYROID Performed By: #### T SH #### [facility] [address] [address] [address] Sara Matos CBC AUTO DIFFon 01-19-2022 BASO # 0.0 103/ul Normal 0.0-0.[address] [facility] Comment on above: Performed By: #### T SH #### [facility] [address] [address] [address] Sara Matos Basophils/100 WBC (Bld) 0.5 % Normal 0.2-2.[address] [facility] Comment on above: Performed By: #### T SH #### [facility] [address] [place] [address] Dr. Sara Matos EO # 0.1 103/ul Normal 0.0-0.[address] [facility] Comment on above: Performed By: #### T SH #### [facility] [address] [place] [address] Dr. Sara Matos Eosinophils/100 WBC (Bld) 1.1 % Normal 0.9-7.[address] [facility] Comment on above: Performed By: #### T SH #### [facility] [address] [place] [address] Dr. Sara Matos Erythrocyte distribution width (RBC) [Ratio] 13.6 % Normal 11.0-15.[address] [facility] Comment on above: Performed By: #### T SH #### [facility] [address] [place] [address] Dr. Sara Matos Hematocrit (Bld) [Volume fraction] 38.4 % Normal 36.0-48.[address] [facility] Comment on above: Performed By: #### T SH #### [facility] [address] [place] [address] Dr. Sara Matos Hemoglobin (Bld) [Mass/Vol] 12.5 g/dL Normal 12.0-16.[address] [facility] Comment on above: Performed By: #### T SH #### [facility] [address] [place] [address] Dr. Sara Matos IG # 0.02 10e3/ul Normal 0.00-0.[address] [facility] Comment on above: Performed By: #### T SH #### [facility] [address] [place] [address] Dr. Sara Matos IG % 0.2 % Normal 0.0-0.[address] [facility] Comment on above: Performed By: #### T SH #### [facility] [address] [place] [address] Dr. Sara Matos LYMPH # 2.5 103/ul Normal 1.2-3.[address] [facility] Comment on above: Performed By: #### T SH #### [facility] [address] [place] [address] Dr. Sara Matos Lymphocytes/100 WBC (Bld) 28.9 % Normal 20.5-60.[address] [facility] Comment on above: Performed By: #### T SH #### [facility] [address] [place] [address] Dr. Sara Matos MANUAL DIFF REQ NO Normal [facility] Comment on above: Performed By: #### T SH #### [facility] [address] [place] [address] Dr. Sara Matos MCH (RBC) [Entitic mass] 26.9 pg Normal 26.7-34.[address] [facility] Comment on above: Performed By: #### T SH #### [facility] [address] [place] [address] Dr. Sara Matos MCHC (RBC) [Mass/Vol] 32.6 g/dL Normal 29.9-35.[address] [facility] Comment on above: Performed By: #### T SH #### [facility] [address] [place] [address] Dr. Sara Matos MCV (RBC) [Entitic vol] 82.6 fL Normal 81.0-99.[address] [facility] Comment on above: Performed By: #### T SH #### [facility] [address] [place] [address] Dr. Sara Matos MONO # 0.7 103/ul Normal 0.3-0.[address] [facility] Comment on above: Performed By: #### T SH #### [facility] [address] [place] [address] Dr. Sara Matos Monocytes/100 WBC (Bld) 7.5 % Normal 1.7-12.[address] [facility] Comment on above: Performed By: #### T SH #### [facility] [address] [place] [address] Dr. Sara Matos NEUT # 5.4 103/ul Normal 1.4-6.[address] [facility] Comment on above: Performed By: #### T SH #### [facility] [address] [place] [address] Dr. Sara Matos Neutrophils/100 WBC (Bld) 61.8 % Normal 43.0-75.[address] [facility] Comment on above: Performed By: #### T SH #### [facility] [address] [place] [address] Dr. Sara Matos Platelet mean volume (Bld) [Entitic vol] 11.4 fL Normal 9.5-13.[address] [facility] Comment on above: Performed By: #### T SH #### [facility] [address] [place] [address] Dr. Sara Matos PLT 233 103/ul Normal 150-[address] [facility] Comment on above: Performed By: #### T SH #### [facility] [address] [place] [address] Dr. Sara Matos RBC 4.65 106/ul Normal 4.20-5.[address] [facility] Comment on above: Performed By: #### T SH #### [facility] [address] [place] [address] Dr. Sara Matos WBC 8.8 103/ul Normal 4.0-11.[address] [facility] Comment on above: Performed By: #### T SH #### [facility] [address] [place] [address] Dr. Sara Matos PROF 14(COMP METB)on 022 Albumin [Mass/Vol] 3.8 g/dL Normal 3.4-5.0 [facility] Comment on above: Performed By: #### E LONDONR, UMICRO #### [facility] [address] [address] [address] Sara Matos Albumin/Globulin [Mass ratio] 1.0 {ratio} Normal [facility] Comment on above: Performed By: #### E LONDONR, UMICRO #### [facility] [address] [address] [address] Sara Matos ALP [Catalytic activity/Vol] 65 U/L Normal 46-[address] [facility] Comment on above: Performed By: #### E LONDONR, UMICRO #### [facility] [address] [address] [address] Sara Matos ALT [Catalytic activity/Vol] 52 U/L Normal 14-[address] [facility] Comment on above: Performed By: #### E BHARATH, UMICRO #### [facility] [address] [place] [address] Dr. Sara Matos Anion gap [Moles/Vol] 12.0 mmol/L Normal [facility] Comment on above: Performed By: #### Mery SINHA, UMICRO #### [facility] [address] [place] [address] Dr. Sara Matos AST [Catalytic activity/Vol] 28 U/L Normal 15-[address] [facility] Comment on above: Performed By: #### Mery SINHA, UMICRO #### [facility] [address] [place] [address] Dr. Sara Matos Bilirubin [Mass/Vol] 0.4 mg/dL Normal 0.2-1.[address] [facility] Comment on above: Performed By: #### Mery SINHA, UMICRO #### [facility] [address] [address] [address] Sara Matos Calcium [Mass/Vol] 9.5 mg/dL Normal 8.5-10.1 [facility] Comment on above: Performed By: #### Mery SINHA, UMICRO #### [facility] [address] [address] [address] Sara Matos Chloride [Moles/Vol] 103 mmol/L Normal 98-107 [facility] Comment on above: Performed By: #### Mery SINHA UMICRO #### [facility] [address] [place] [address] Dr. Sara Matos CO2 [Moles/Vol] 26.7 mmol/L Normal 21.0-32.0 [facility] Comment on above: Performed By: #### Mery SINHA UMICRO #### [facility] [address] [place] [address] Dr. Sara Matos Creatinine [Mass/Vol] 0.69 mg/dL Normal 0.55-1.[address] [facility] Comment on above: Performed By: #### Mery SINHA UMICRO #### [facility] [address] [place] [address] Dr. Sara Matos EGFR-AF LAO >60 Normal >=60 [facility] Comment on above: Performed By: #### Mery SINHA UMICRO #### [facility] [address] [place] [address] Dr. Sara Matos EGFR-NON AF LAO >60 Normal >=[address] [facility] Comment on above: Performed By: #### Mery SINHA UMICRO #### [facility] [address] [place] [address] Dr. Sara Matos Globulin (S) [Mass/Vol] 3.9 g/dL Normal [facility] Comment on above: Performed By: #### FLORENTINO GODWINICRO #### [facility] [address] [place] [address] Dr. Sara Matos Glucose [Mass/Vol] 84 mg/dL Normal 74-106 [facility] Comment on above: Performed By: #### Mery SINHA UMICRO #### [facility] [address] [place] [address] Dr. Sara Matos Potassium [Moles/Vol] 3.7 mmol/L Normal 3.5-5.[address] [facility] Comment on above: Performed By: #### Mery SINHA UMICRO #### [facility] [address] [place] [address] Dr. Sara Matos Protein [Mass/Vol] 7.7 g/dL Normal 6.4-8.2 [facility] Comment on above: Performed By: #### JAIME GODWIN #### [facility] [address] [address] [address] Sara Matos Sodium [Moles/Vol] 138 mmol/L Normal 136-145 [facility] Comment on above: Performed By: #### KACY GODWINRO #### [facility] [address] [address] [address] Sara Matos Urea nitrogen [Mass/Vol] 8.0 mg/dL Normal 7.0-18.[address] [facility] Comment on above: Performed By: #### AKCY GODWINRO #### [facility] [address] [place] [address] Dr. Sara Matos Urea nitrogen/Creatinine [Mass ratio] 11.6 mg/mg Normal [facility] Comment on above: Performed By: #### KACY GODWINRO #### [facility] [address] [place] [address] Dr. Sara Matos TROPONIN, HIGH SENSITIVITYon 01-19-2022 HSTROP <4.0 Normal 4.0-51.[address] [facility] Comment on above: Result Comment: CUT- OFF POINTS HAVE BEEN ESTABLISHED BASED ON THE FOURTH UNIVERSAL DEFINITIONS OF MYOCARDIAL INFARCTION. THE UPPER REFERENCE LIMIT (URL) OF TROPONIN, DEFINED THE 99TH PERCENTILE OF cTnI DISTRIBUTION IN A REFERENCE POPULATION, HAS BEEN CONFIRMED THE DECISION THRESHOLD FOR CA DIAGNOSIS. Performed By: #### KACY GODWINRO #### [facility] [address] [place] [address] Dr. Sara Matos XR CHEST 1 Von [...] by: DUSTY BUSCH Date: 2022-01-19 21:50 Normal [facility] US GUY DOP LEG LTon 12-26-19 22 [...] DE LA O Date: 2021-12-25 12:[address] [facility] XR CHEST 1 Von 12-25-2021 XR CHEST [...] by: PREM GUERRA Date: 2021-12-25 11:[address] [facility] U24 Proteinon 09-04-2017 PROTEIN:MCNC:24H:UR INE:QN: 102 mg/24hr Normal 28-141 [facility] Comment on above: Performed By: #### 2 [id number], [id number] ####[facility] [id number] [place] [address] ALBUMIN/PROTEIN.TOT AL:MFR:PT:URINE:QN: ELECTROPHORESIS 8.0 mg/dL Invalid Interpretation Code [facility] Comment on above: Result Comment: The reference range and other method performance specifications have not been established for this test; results should be integrated into the clinical context for interpretation. Performed By: #### 2 [id number], [id number] ####[facility] [address] [place] [address] U24 Total Volon 09-04-2017 Hrs Glenna 24 hour(s) Invalid Interpretation Code [facility] Comment on above: Order Comment: Order added by Discern Expert Performed By: #### 2 [id number], [id number] ####[facility] [address] [place] [address] SPECIMEN VOLUME:VOL:XXX:URIN E:QN: 1280 mL Invalid Interpretation Code [facility] Comment on above: Order Comment: Order added by Discern Expert Performed By: #### 2 [id number], [id number] ####[facility] [address] [place] [address] Vital Signs Date Time Vital Sign Value Performing Clinician Yani lity 06-27-2024 10:38-0500 Body mass index (BMI) [Ratio] 47.1 kg/m2 Jonas Jose DO Work Phone: [facility] 06-27-2024 10:38-0500 Body weight 124.47 kg Jonas Jose DO Work Phone: [facility] 06-27-2024 10:38-0500 Diastolic blood pressure 72 mm[Hg] Jonas Jose DO Work Phone: [facility] 06-27-2024 10:38-0500 Systolic blood pressure 118 mm[Hg] Jonas Jose DO Work Phone: [facility] Healthcare Encounters Encounter Date Encounter Type Care Provider Facility Start: 06-27-2024 End: 06-27-2024 Bamboo flowsheet Jonas Jose DO Work Phone: [facility] Start: 06-27-2024 End: 06-27-2024 Bamboo flowsheet Jonas Jose DO Work Phone: [facility] Start: 06-27-2024 End: 06-27-2024 Office outpatient visit 15 minutes Jonas Jose DO Work Phone: [facility] Comment on above: Third trimester preg kat; 32 weeks gestation of ; Excessive growth affecting management of , antepartum, single or unspecified fetus Start: 06-27-2024 End: 06-27-2024 ambulatory JONAS JOSE Not Available Start: 05-15-2024 End: 05-15-2024 ambulatory ISABELA SPENCER Not Available Start: 04-11-2024 End: 04-11-2024 ambulatory JONAS GARCIA Not Available Start: 03-09-2024 End: 03-09-2024 ambulatory JONAS GARCIA Not Available Start: 12-10-2022 End: 12-11-[address] JONAH YORK . Facility:[facility] Start: 12-02-2022 End: 12-03-[address] JONAH YORK . Facility:[facility] Start: 11-17-2022 End: 11-18-[address] JONAH YORK . Facility:[facility] Start: 09-07-2022 End: 09-08-[address] JONAH YORK . Facility:[facility] Start: 07-20-[address] JONAS GARCIA . Facili ty:[facility] Start: 06-06-2022 End: 06-06-2022 ambulatory CHANNING ELAINE Facility:[facility] Start: 04-22-2022 ambulatory CHANNING ELAINE Facility: [facility] Start: 04-09-2022 End: 04-09-2022 ambulatory CHANNING ELAINE Facility:[facility] Start: 04-01-2022 End: 04-01-2022 ambulatory CHANNING ELAINE Facility:[facility] Start: 03-09-2022 ambulatory CHANNING ELAINE Facility: [facility] Start: 02-25-2022 End: 02-25-2022 ambulatory CHANNING ELAINE Facility:[facility] Start: 01-30-2022 End: 01-30-2022 ambulatory CHANNING ELAINE Facility:[facility] Start: 01-24-2022 End: 01-24-2022 ambulatory CHANNING ELAINE Facility:[facility] Start: 01-19-2022 End: 01-19-[address] ANTONY MENA Facility:[facility] Start: 12-25-2021 End: 12-25-[address] SUHAS NAVARRETE . Facility:[facility] Start: 09-04-2017 End: 09-05-2017 Ambulatory Jonah York Facility:[facility] Plan of Treatment Date Care Activity Detail Author Start: 07-11-2024 End: 07-11-2024 Patient encounter procedure 07/11/2024 10:10 AM EST Routine [facility] [address] [place] [id number] Isabela Palmer PA [address] [place], [place] [id number] [facility] Start: 07-11-2024 End: 07-11-2024 Professional / ancillary services management 07/11/2024 9:30 AM EST Ancillary Procedure [facility] [address] [place] [address] [facility] Start: 06-27-2024 End: 06-27-2025 US for US OB SCAN FOR GROWTH Imaging Routine Excessive growth affecting management of , antepartum, single or unspecified fetus Expected: 06/27/2024 (Approximate), Expires: 06/27/2025 [facility] Work Phone: Comment on above: Expected: 06/27/2024 (Approximate), Expires: 06/27/2025 Start: 04-16-2024 Influenza vaccination Influenza Vacc ine (#1) [facility] Payers Date Payer Category Payer Medicaid (Managed Care) [facility] MEDICAID [id number] 1995 Unknown [id number] 2..840.1.555544.3.579.2. 593 1995 Unknown [id number] 2.16.840.1.954227.3.579.2. 593 1995 Unknown [id number] 2.16.840.1.952751.3.579.2. 593 1995 Unknown [id number] 2.16.840.1.948599.3.579.2. 593 1995 Unknown [id number] 2.16.840.1.008104.3.579.2. 593 1995 Unknown [id number] 2.16.840.1.187601.3.579.2. 593 1995 Unknown [id number] 2.16.840.1.212203.3.579.2. 593 1995 Unknown [id number] 2.16.840.1.586479.3.579.2. 593 1995 Unknown [id number] 2.16.840.1.663414.3.579.2. 593 1995 Unknown [id number] 2.16.840.1.817664.3.579.2. 593 1995 Unknown [id number] 2.16.840.1.043938.3.579.2. 593 1995 Unknown [id number] 2.16.840.1.483310.3.579.2. 593 1995 Unknown [id number] 2.16.840.1.735751.3.579.2. 593 1995 Unknown [id number] 2.16.840.1.486200.3.579.2. 593 1995 Unknown [id number] 2.16.840.1.474320.3.579.2. 593 1995 Unknown [id number] 2.16.840.1.546575.3.579.2. 1259 1995 Unknown [id number] 2.16.840.1.649748.3.579.2. 1259 1995 Unknown [id number] 2.16.840.1.115398.3.579.2. 1259 1995 Unknown [id number] 2.16.840.1.755205.3.579.2. 1259 1959 Self-pay [id number] 1959 Unknown [id number] Social History Date Type Detail Facility Start: 01-24-2023 Tobacco smoking status NHIS Never sm oked tobacco [facility] Start: 02-10-2024 History of Social function [facility] Start: 02-10-2024 Tobacco use panel [facility] Start: 11-25-2023 [facility] Start: 1995 Sex assigned at Not on file [facility] Goals Date Patient Goal Desired Activity /State Personal health goal History of Present illness Narrative 06-27-2024 Mary Hoffman, YASMIN - 06/27/2024 10:30 AM EST Note Date & Type Note Facility 06-27-2024 History of Presen t illness Narrative Reason for Appointment: Patient ID: Astrid Montague is a 28 y.o. female who presents for Routine Visit Patient presents today for Return OB appointment. MEDICATIONS Current Outpatient Medications Medication Instructions [id number] (Tylenol Cold Multi-Symptom) 5-10-325 mg/15 mL liquid 15 mL, Oral, Every 4 hours PRN ALLERGIES Allergies Allergen Reactions Lexapro [Escitalopram] Headache PROBLEMS Active Ambulatory Problems Diagnosis Date Noted No Active Ambulatory Problems Resolved Ambulatory Problems Diagnosis Date Noted No Resolved Ambulatory Problems Past Medical History: Diagnosis Date Anxiety Heart murmur History of gestational hypertension Panic attacks (CMS/HCC) HISTORY PAST MEDICAL HISTORY SOCIAL HISTORY Past Medical History: Diagnosis Date Anxiety Heart murmur History of gestational hypertension Panic attacks (CMS/HCC) Social History Tobacco Use Smoking status: Never Smokeless tobacco: Not on file Substance Use Topics Alcohol use: Not on file Drug use: Not on file FAMILY HISTORY Family History Problem Relation Name Age of Onset Diabetes Mother Hypertension Mother Cancer Sister NET SURGICAL HISTORY No past surgical history on file. REVIEW OF SYSTEMS Review of Systems: Review of Systems Constitutional: Negative. HENT: Negative. Eyes: Negative. Respiratory: Negative. Cardiovascular: Negative. Gastrointestinal: Negative. Genitourinary: Negative. Musculoskeletal: Negative. Skin: Negative. Neurological: Negative. All other systems reviewed and are negative. Hematological: Negative. Endocrine: Negative. Allergic/Immunologic: Negative. OBJECTIVE Objective: Physical Exam Constitutional: Appearance: Normal appearance. She is well-developed. Cardiovascular: Rate and Rhythm: Normal rate and regular rhythm. Pulmonary: Effort: Pulmonary effort is normal. Breath sounds: Normal breath sounds. Abdominal: General: Bowel sounds are normal. There is no distension. Palpations: Abdomen is soft. Tenderness: There is no abdominal tenderness. There is no guarding or rebound. Musculoskeletal: General: No swelling. Normal range of motion. Right lower leg: No edema. Left lower leg: No edema. Neurological: Mental Status: She is alert and oriented to person, place, and time. Skin: General: Skin is warm and dry. Psychiatric: Mood and Affect: Mood normal. Behavior: Behavior normal. Vitals and nursing note reviewed. Exam conducted with a spool maker present. Vitals: Estimated body mass index is 47.1 kg/m as calculated from the following: Height as of 12/02/22: 5' 4 . Weight as of this encounter: 274 lb 6.4 oz. BP: 118/72 Patient's last menstrual period was 11/11/2023. ASSESSMENT & PLAN ICD-10-CM 1. Third trimester Z34.93 POCT urinalysis dipstick manually resulted 2. 32 weeks gestation of Z3A.32 POCT urinalysis dipstick manually resulted 3. Excessive growth affecting management of , antepartum, single or unspecified fetus O36.60X0 US OB SCAN FOR GROWTH Return OB: Patient presents today for a routine obstetrics appointment. Patient is currently 32w5d . Patient states she is doing well but has complaints of being tired due to current . Patient has verbalizes frequent movement. labor precautions was discussed/given and patient was instructed to perform kick counts three times a day. Orders Placed This Encounter Procedures US OB SCAN FOR GROWTH POCT urinalysis dipstick manually resulted Follow Up: Patient is to return to office in 2 week for routine OB appointment. Documented by Mary Hoffman LPN on behalf of: Jonas Garcia DO documented in this encounter [facility] Evaluation note Note Date & Type Note Facility Evaluation note Diagnosis Third trimester state, incidental 32 weeks gestation of Excessive growth affecting management of , antepartum, single or unspecified fetus documented in this encounter [facility] Summary Purpose Family History No Family History Records FoundNo Family History Records FoundNo Family History Records FoundNo Family History Records Found Advance Directives No Advanced Directives Records FoundNo Advanced Directives Records FoundNo Advanced Directives Records FoundNo Advanced Directives Records Found Additional Source Comments INFORMATION SOURCE (unrecogn ized section and content) DATE CREATED AUTHOR 02/04/2018 [facility] Eid [facility] DATE CREATED AUTHOR AUTHOR'S ORGANIZ ATION 04/25/2022 [facility] DATE CREATED AUTHOR AUTHOR'S ORGANIZ ATION 12/13/2022 [facility] DATE CREATED AUTHOR AUTHOR'S ORGANIZ ATION 06/29/2024 [facility] EPIC Reason for Visit (unrecogniz ed section and content) Reason Comments Routine Visit FOR RECORDS PERTAINING TO PATIENTS WHO ARE [...] BE BASED ON THE PRIMARY CLINICAL RECORDS. [facility]. provides no warranty or guarantee of the accuracy or completeness of information in this document.
[2024-07-16] MEDS: AMOXICILLIN 500 MG CAPSULE 1000 MG PO (23:23)
--- NOTE | 2024-07-17 00:02 | ED.GENADUL1 ---
HPI HPI - General Adult General Chief complaint: Upper Respiratory Infection Stated complaint: R EAR PAIN, COUGH, BODY ACHES Time Seen by Provider: 07/16/24 23:02 Source: patient Mode of arrival: walk-in Limitations: no limitations History of Present Illness HPI narrative: 28-year-old female to the emergency department chief complaint of right-sided ear pain. She reports she recently had upper respiratory infection. Symptoms got better now she has pain and worsening of symptoms. Symptoms all focused around the right ear. She has dulled hearing in that ear. She denies any fever, sweats, chills. No nausea or vomiting. She is currently 35 weeks . She denies any abdominal pain, cramping, vaginal fluid or discharge change. Related Data Previous Rx's ?Medication ?Instructions ?Recorded amoxicillin 875 mg tablet 875 mg PO BID #7 tabs 07/16/24 Allergies Allergy/AdvReac Type Severity Reaction Status Date / Time escitalopram (From Lexapro) Allergy Intermediate Anxiety Verified 07/16/24 23:08 Opioid HPI Opioid Management Most Recent Opioid Data: Last Pain Scale 7 11/15/23 18:13 11/15/23 Ur Phencyclidine Scrn Negative (NEGATIVE) 02/24/23 05:00 02/24/23 Review of Systems ROS Status of ROS 10 or more systems reviewed and unremarkable except as noted in history and below PFSH PFSH Medical History (Updated 07/16/24 @ 23:17 by René Cowan MD) Panic attacks ?F41.0 - Panic disorder [episodic paroxysmal anxiety] (ICD-10) Anxiety ?F41.9 - Anxiety disorder, unspecified (ICD-10) Surgical History (Updated 11/15/23 @ 18:10 by Jurgen Cano) No pertinent past surgical history ?Z78.9 - Other specified health status (ICD-10) Family History (Updated 02/24/23 @ 05:44 by Marcia Packer RN) Mother Family history of diabetes mellitus Family history of hypertension Sister Family history of cancer Social History Smoking status: Never smoker Little interest or pleasure in doing things: not at all Feeling down, depressed, or hopeless: not at all Exam Narrative Exam Narrative: VITALS: I have reviewed the triage vital signs. GENERAL: Well developed, well appearing adult in no acute distress. NEURO: Alert and oriented. Moves all extremities. Face is symmetric and expressive. EYES: PERRL. No scleral icterus or conjunctival injection. No discharge. HENT: Normocephalic, atraumatic. Hearing is grossly intact. Nares grossly patent and without discharge. Mucous membranes moist. Right TM is bulging, erythematous, purulent fluid. Left TM is normal. Normal canals bilaterally. NECK: No JVD. Patient moves neck without restriction. EXTREMITIES: Symmetric muscle bulk. No joint swelling. No clubbing, cyanosis, or deformity. SKIN: Warm and dry. Normal turgor. No rash or lesions appreciated. PSYCH: Mood, affect, and interaction is appropriate to the setting. Constitutional Vital Signs, click to edit/add: Last Vital Signs Temp 98.0 F 07/16/24 23:01 Pulse 124 H 07/16/24 23:01 Resp 20 07/16/24 23:01 BP 132/72 07/16/24 23:11 Pulse Ox 97 07/16/24 23:01 O2 Del Method Room Air 07/16/24 23:01 Course Vital Signs Vital signs: Vital Signs Temperature 98.0 F 07/16/24 23:01 Pulse Rate 124 H 07/16/24 23:01 Respiratory Rate 20 07/16/24 23:01 Pulse Oximetry 97 07/16/24 23:01 Oxygen Delivery Method Room Air 07/16/24 23:01 Temperature 98.0 F 07/16/24 23:01 Pulse Rate 124 H 07/16/24 23:01 Respiratory Rate 20 07/16/24 23:01 Blood Pressure 132/72 07/16/24 23:11 Pulse Oximetry 97 07/16/24 23:01 Oxygen Delivery Method Room Air 07/16/24 23:01 Medical Decision Making [facility] Narrative Medical decision making narrative: Otherwise healthy 28-year-old female to the emergency department with chief complaint of right ear pain. She has an obvious right-sided otitis media. She will be treated with amoxicillin. She is currently we will continue to take Tylenol for discomfort. No complications by history or exam. She is not in labor. Return precautions were discussed. All questions were answered. The patient was discharged home. Discharge Plan Discharge Chief Complaint: Upper Respiratory Infection Clinical Impression: Otitis media Patient Disposition: Home, Self-Care Time of Disposition Decision: 23:17 Condition: Good Mode of Transportation: Private Vehicle Prescriptions / Home Meds: New amoxicillin 875 mg tablet 875 mg PO BID Qty: 7 0RF Print Language: Czech Instructions: Ear Infection (ED) Additional Instructions: Call the office of your primary care doctor to arrange for follow-up within the above-stated timeframe. Your ED visit was focused on your acute issue and does not replace primary care. You should review your labs, imaging, and diagnoses from this ED visit with your primary care physician. There may be non-emergent/ incidental findings that need further evaluation. You should review your vital signs including blood pressure with your PCP. If you were prescribed medications you should discuss possible side-effects and drug interactions with your pharmacist. Call 911 or go to the nearest Emergency Department if you develop any new or worsening symptoms. Referrals: CHANNING ELAINE [Primary Care Provider] - 1 week Discharge Date/Time: 07/16/24 23:27
== END 2024-07-16 23:27 | disposition home or self-care (01) ==
LOC: ER 23:19
PROVIDERS: Emergency Provider Student in an Organized Health Care Education/Training Program; PCP Nurse Practitioner Family
DX: O99.891 Other specified diseases and conditions complicating pregnancy (principal); H66.91 Otitis media, unspecified, right ear; Z3A.35 35 weeks gestation of pregnancy
CPT/HCPCS: 99283

== ENCOUNTER 2024-07-18 10:29 | Outpatient (OUT) | payer OTHER, SELFPAY ==
--- NOTE | 2024-07-18 10:32 | US_ITS ---
[address] [address] Patient Name: MICHAEL BRAXTON MRN: [id number] date: 1995 Sex: F Assigned Patient Location: [facility] Current Patient Location: [facility] Accession/Order Number: [id number] Exam Date: 07/18/2024 10:32 Report Date: 07/18/2024 12:29 At the request of: JONAS SMITH Procedure: US OB growth EXAMINATION: US OB growth HISTORY: LARGE FOR GESTATIONAL AGE COMPARISON: No relevant comparison available. TECHNIQUE: Transabdominal sonographic examination was performed for obstetrical and evaluation. FINDINGS: Number: 1 Heart Rate: 134 bpm H.B. /min Amniotic Fluid Volume: 9.5 cm, largest pocket 4.7 cm Placental Location: Anterior Cephalic presentation, longitudinal lie BIOMETRY: BPD: 8.84 cm; 35w5d; 57.40 % HC: 32.13 cm; 36w2d; 30.90 % AC: 31.79 cm; 35w5d; 59.40 % FL: 6.85 cm; 35w1d; 30.40 % EFW:2744.81 g; 47.40 % FL/AC: 21.55 FL/BPD: 77.49 HC/AC: 1.01 GESTATIONAL AGE: Age by EDC: 35w5d NATALIA by EDC: 2024-08-17 Age by current US: 35w5d NATALIA by current US: 2024-08-17 US/US OB growth IMPRESSION: Normal interval growth *Reference: [facility] Practice Guideline for the performance of Obstetric Ultrasound Examinations, May 16, 2007. Electronically authenticated by: PREM GUERRA Date: 07/18/2024 12:29
--- OUTSIDE RECORDS SUMMARY | 2024-07-18 10:37 | XMS_ITS | CCD ---
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 Role Phone Jonah York Unavailable Unavailable [...] HAY ., DR DAI Admitting Unavailable CHELE, CHANINNG Primary Care Unavailable MARI, DR PRME Sanchez Consulting Unavailable ZIEBER, DR CHARLIE Aguero Consulting Unavailable HAY ., DR DAI Consulting Unavailable KARASIK ., DR SEAY Consulting Unavailabl e KARMADISONK ., DR SEAY Attending Unavailabl e KARASIK ., DR SEAY Admitting Unavailabl e CHELE, CHANNING Primary Care Unavailable ZIEBER, DR CHARLIE Aguero Consulting Unavailable OJSE ., DR MCDANIEL Admitting Unavailable CHELE, CHANNING Primary Care Unavailable JOSE ., DR MCDANIEL Attending Unavailable CHELE, CHANNING Primary Care Unavailable NURAARLENE SANDOVALINDA Admitting Unavailable NURASWEETIE SANDOVAL Attending Unavailable KARASIK ., DR SEAY Consulting Unavailabl e KARASIK ., DR SEAY Attending Unavailabl e KARASIK ., DR SEAY Admitting Unavailabl e CHELE, [facility] Primary Care Unavailable KARASIK ., DR SEAY Consulting Unavailabl e KARASIK ., DR SEAY Attending Unavailabl e KARASIK ., DR SEAY Admitting Unavailabl e CHELE, [facility] Primary Care Unavailable KARASIK ., DR SEAY Attending Unavailabl e KARASIK ., DR SEAY Admitting Unavailabl e CHELE, [facility] Primary Care Unavailable KARASIK ., DR SEAY Consulting Unavailabl e JAYLYN, DR CHARLIE Aguero Consulting Unavailable CHEEL, [facility] Primary Care Unavailable KENTRELL, DR WANDY Silva Attending Unavailabl e KENTRELL, DR WANDY Silva Admitting Unavailabl e KENTRELL, DR WANDY Silva Consulting Unavailadi e LEAHY ., MR GUERRERO Consulting Unavailable JONAS GARCIA Attending Unavailable ISABELA PALMER Attending Unavailable JONAS GARCIA Attending Unavailable [facility] Primary Care Provider Unavailabl e Allergies Allergy Classification Reported Allergen(s) Allergy Type Date of Onset Reaction(s) Facility (2 sources) Escitalopram Drug Allergy 11-12-2021 [facility] Rep[facility] (3 sources) Escitalopram Drug Allergy 11-28-2021 Headache [facility] Work Phone: Medications Current Medications Medication Drug Class(es) Dates Sig (Normalized) Sig (Original) acetaminophen 21.7 mg/ml / dextromethorphan hydrobromide 0.667 mg/ml / phenylephrine hydrochloride 0.333 mg/ml oral solution (3 sources) Uncompetitive X-kxzoge-W-aspartate Receptor Antagonist, Sigma-1 Agonist, alpha-1 Adrenergic Agonist [...] 06-06-2022 Episodic Other aftercare (1 source) 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 Sara Matos HEMOGRAM AND PLATELon 2022 Hematocrit (Bld) [Volume fraction] 33.8 % Critically low 36.0-48.0 [facility] Comment on above: Performed By: #### T SH #### [facility] [address] [address] [address] Sara Matos Hemoglobin (Bld) [Mass/Vol] 11.1 g/dL Critically low 12.0-16.0 [facility] Comment on above: Performed By: #### T SH #### [facility] [address] [address] [address] Sara Matos MCH (RBC) [Entitic mass] 28.6 pg Normal 26.7-34.0 [facility] Comment on above: Performed By: #### T SH #### [facility] [address] [place] [address] Dr. Sara Matos MCHC (RBC) [Mass/Vol] 32.8 g/dL Normal 29.9-35.2 [facility] Comment on above: Performed By: #### T SH #### [facility] [address] [address] [address] Sara Matos MCV (RBC) [Entitic vol] 87.1 fL Normal 81.0-99.0 [facility] Comment on above: Performed By: #### T SH #### [facility] [address] [address] [address] Sara Matos PLT 188 103/ul Normal 150-450 [facility] Comment on above: Performed By: #### T SH #### [facility] [address] [address] [address] Sara Matos RBC 3.88 106/ul Critically low 4.20-5.40 [facility] Comment on above: Performed By: #### T SH #### [facility] [address] [address] [address] Sara Matos WBC 9.8 103/ul Normal 4.0-11.0 [facility] Comment on above: Performed By: #### T SH #### [facility] [address] [address] [address] Sara Matos US PREG ANATOMY SINGLEon [...] Date: 2022-12-02 15:25 Normal [facility] HEP B SURFACE ANTIGEN SCREEN on 11-18-2022 HBsAg Screen Negative Normal Negative [facility] Comment on above: Performed By: #### Mery SINHA, UMICRO #### [facility] [address] [place] [address] Dr. Sraa Matos HEPATITIS C VIRUS AB W/ REFL EX QUANTon 11-18-2022 HCV AB Non-Reactive Normal Non Reactive [facility] Comment on above: Performed By: #### Mery SINHA, UMICRO #### [facility] [address] [place] [address] Dr. Sara Matos Interpretation: Comment Normal [facility] Comment on above: Result Comment: Not infected with HCV unless early or acute infection is suspected (which may be delayed in an immunocompromised individual), or other evidence exists to indicate HCV infection. Performed By: #### Mery SINHA, UMICRO #### [facility] [address] [place] [address] Dr. Sara Matos HIV 1 AND 2 WITH REFLEXon HIV Screen 4th Generation wRfx Non-Reactive Normal Non Reactive [facility] Comment on above: Result Comment: HIV Negative HIV-1/HIV-2 antibodies and HIV-1 p24 antigen were NOT detected. There is no laboratory evidence of HIV infection. Performed By: #### Mery SINHA, UMICRO #### [facility] [address] [place] [address] Dr. Sara Matos RPR QUANTon 11-18-2022 Rapid Plasma Reagin, Quant Non-Reactive Normal NonRea<1:1 [facility] Comment on above: Result Comment: Porsche yan Note: This test does not meet current guidelines for screening and diagnosis of syphilis. This test is intended for following treatment response in patients being treated for syphilis infection. To screen for syphilis infection, a reflex cascade that includes both RPR and a treponema-specific assay should be utilized, such as Treponema pallidum (Syphilis) Screening [place] (188869) or Rapid Plasma Reagin (RPR) Test With Reflex to Quantitative RPR and Confirmatory Treponema pallidum Antibodies (479888). Performed By: #### T SH #### [facility] [address] [place] [address] Dr. Sara Matos RUBELLA AB IGGon 11-18-2022 Rubella Antibodies, IgG 3.67 index Normal Immune >0.99 [facility] Comment on above: Result Comment: Non- immune <0.90 Equivocal 0.90 - 0.99 Immune >0.99 Performed By: #### T SH #### [facility] [address] [place] [address] Dr. Sara Matos BOX TEST SENT OUTon 11-18-19 23 SENT TO REF LAB 11/17/2022 Normal [facility] Comment on above: Performed By: #### T SH #### [facility] [address] [place] [address] Dr. Sara Matos CBC AUTO DIFFon 11-17-2022 BASO # 0.0 103/ul Normal 0.0-0.1 [facility] Comment on above: Performed By: #### JAIME GODWIN #### [facility] [address] [place] [address] Dr. Sara Matos Basophils/100 WBC (Bld) 0.4 % Normal 0.2-2.0 [facility] Comment on above: Performed By: #### JAIME GODWIN #### [facility] [address] [place] [address] Dr. Sara Matos EO # 0.1 103/ul Normal 0.0-0.7 [facility] Comment on above: Performed By: #### JAIME GODWIN #### [facility] [address] [place] [address] Dr. Sara Matos Eosinophils/100 WBC (Bld) 1.3 % Normal 0.9-7.0 [facility] Comment on above: Performed By: #### KACY GODWINRO #### [facility] [address] [place] [address] Dr. Sara Matos Erythrocyte distribution width (RBC) [Ratio] 12.3 % Normal 11.0-15.0 [facility] Comment on above: Performed By: #### KACY GODWINRO #### [facility] [address] [place] [address] Dr. Sara Matos Hematocrit (Bld) [Volume fraction] 33.6 % Critically low 36.0-48.0 [facility] Comment on above: Performed By: #### KACY GODWINRO #### [facility] [address] [place] [address] Dr. Sara Matos Hemoglobin (Bld) [Mass/Vol] 11.3 g/dL Critically low 12.0-16.0 [facility] Comment on above: Performed By: #### KACY GODWINRO #### [facility] [address] [place] [address] Dr. Sara Matos IG # 0.04 10e3/ul Critically high 0.00-0.03 [facility] Comment on above: Performed By: #### KACY GODWINRO #### [facility] [address] [place] [address] Dr. Sara Matos IG % 0.4 % Normal 0.0-0.5 [facility] Comment on above: Performed By: #### KACY GODWINRO #### [facility] [address] [place] [address] Dr. Sara Matos LYMPH # 1.7 103/ul Normal 1.2-3.8 [facility] Comment on above: Performed By: #### KACY GODWINRO #### [facility] [address] [place] [address] Dr. Sara Matos Lymphocytes/100 WBC (Bld) 16.7 % Critically low 20.5-60.0 [facility] Comment on above: Performed By: #### KACY GODWINRO #### [facility] [address] [place] [address] Dr. Sara Matos MANUAL DIFF REQ NO Normal [facility] Comment on above: Performed By: #### KACY GODWINRO #### [facility] [address] [place] [address] Dr. Sara Matos MCH (RBC) [Entitic mass] 28.8 pg Normal 26.7-34.0 [facility] Comment on above: Performed By: #### KACY GODWINRO #### [facility] [address] [place] [address] Dr. Sara Matos MCHC (RBC) [Mass/Vol] 33.6 g/dL Normal 29.9-35.2 [facility] Comment on above: Performed By: #### KACY GODWINRO #### [facility] [address] [place] [address] Dr. Sara Matos MCV (RBC) [Entitic vol] 85.5 fL Normal 81.0-99.0 [facility] Comment on above: Performed By: #### KACY GODWINRO #### [facility] [address] [place] [address] Dr. Sara Matos MONO # 0.6 103/ul Normal 0.3-0.8 [facility] Comment on above: Performed By: #### KACY GODWINRO #### [facility] [address] [place] [address] Dr. Sara Matos Monocytes/100 WBC (Bld) 5.9 % Normal 1.7-12.0 [facility] Comment on above: Performed By: #### KACY GODWINRO #### [facility] [address] [place] [address] Dr. Sara Matos NEUT # 7.7 103/ul Critically high 1.4-6.5 [facility] Comment on above: Performed By: #### E RUR, UMICRO #### [facility] [address] [address] [address] Sara Matos Neutrophils/100 WBC (Bld) 75.3 % Critically high 43.0-75.0 [facility] Comment on above: Performed By: #### E BHARATH, UMICRO #### [facility] [address] [address] [address] Sara Matos Platelet mean volume (Bld) [Entitic vol] 11.2 fL Normal 9.5-13.5 [facility] Comment on above: Performed By: #### E HBARATH, UMICRO #### [facility] [address] [place] [address] Dr. Sara Matos PLT 217 103/ul Normal 150-450 [facility] Comment on above: Performed By: #### Mery SINHA, UMICRO #### [facility] [address] [place] [address] Dr. Sara Matos RBC 3.93 106/ul Critically low 4.20-5.40 [facility] Comment on above: Performed By: #### E BHARATH, UMICRO #### [facility] [address] [address] [address] Sara Matos WBC 10.2 103/ul Normal 4.0-11.0 [facility] Comment on above: Performed By: #### Mery SINHA, UMICRO #### [facility] [address] [place] [address] Dr. Sara Matos CULTURE URINEon 11-17-2022 CULTURE URINE Culture Observations : HEAVY GROWTH OF MIXED GENITAL JP. NO POTENTIAL PATHOGENS SEEN. Normal [facility] Comment on above: Performed By: #### Mery SINHA, UMICRO #### [facility] [address] [place] [address] Dr. Sara Matos DRUG SCREEN RAPID (URINE)on 11-17-2022 AMP Negative Normal NEGATIVE [facility] Comment on above: Performed By: #### P REGU, DRUGRPD #### [facility] [address] [place] [address] Dr. Sara Matos BAR Negative Normal NEGATIVE [facility] Comment on above: Performed By: #### P REGU, DRUGRPD #### [facility] [address] [address] [address] Sara Matos BUP Negative Normal NEGATIVE [facility] Comment on above: Performed By: #### P REGU, DRUGRPD #### [facility] [address] [place] [address] Dr. Sara Matos BZO Negative Normal NEGATIVE [facility] Comment on above: Performed By: #### P REGU, DRUGRPD #### [facility] [address] [address] [address] Sara Matos COLLEEN Negative Normal NEGATIVE [facility] Comment on above: Performed By: #### P REGU, DRUGRPD #### [facility] [address] [place] [address] Dr. Sara Matos CUT-OFFS SEE BELOW Normal [facility] Comment on above: Result Comment: AMP (Amphetamine): [...] #### P REGU, DRUGRPD #### [facility] [address] [place] [address] Dr. Sara Matos DRUG CUT HEADER DRUG CLASS TEST SYSTEM CUT-OFF CONCENTRATIONS ARE FOLLOWS: Normal [facility] Comment on above: Performed By: #### P REGU, DRUGRPD #### [facility] [address] [place] [address] Dr. Sara Matos mAMP Negative Normal NEGATIVE [facility] Comment on above: Performed By: #### P REGU, DRUGRPD #### [facility] [address] [address] [address] Sara Matos MTD Negative Normal NEGATIVE [facility] Comment on above: Performed By: #### P REGU, DRUGRPD #### [facility] [address] [address] [address] Sara Matos OPI Negative Normal NEGATIVE [facility] Comment on above: Performed By: #### P REGU, DRUGRPD #### [facility] [address] [address] [address] Sara Matos OXY Negative Normal NEGATIVE [facility] Comment on above: Performed By: #### P REGU, DRUGRPD #### [facility] [address] [address] [address] Sara Matos PCP Negative Normal NEGATIVE [facility] Comment on above: Performed By: #### P REGU, DRUGRPD #### [facility] [address] [address] [address] Sara Matos PPX Negative Normal NEGATIVE [facility] Comment on above: Performed By: #### P REGU, DRUGRPD #### [facility] [address] [address] [address] Sara Matos TCA Negative Normal NEGATIVE [facility] Comment on above: Performed By: #### P REGU, DRUGRPD #### [facility] [address] [place] [address] Dr. Sara Matos THC Negative Normal NEGATIVE [facility] Comment on above: Performed By: #### P REGU, DRUGRPD #### [facility] [address] [place] [address] Dr. Sara Matos GLYCOHEMOGLOBIN A1Con 2022 ADA RECOMMENDATION SEE BELOW Normal [facility] Comment on above: Result Comment: ADA RECOMMENDED LIMIT 4.0 - 6.0 ADA THERAPEUTIC TARGET < 7.0 ACTION SUGGESTED > 7.0 Performed By: #### A 1C #### [facility] [address] [place] [address] Dr. Sara Matos Glucose [Mass/Vol] 85 mg/dL Normal [facility] Comment on above: Performed By: #### A 1C #### [facility] [address] [address] [address] Sara Matos HbA1c (Bld) [Mass fraction] 4.6 % Normal 4.5-6.2 [facility] Comment on above: Performed By: #### A 1C #### [facility] [address] [address] [address] Sara Matos URon 11-17-2022 , QUAL Positive Abnormal NEGATIVE [facility] Comment on above: Performed By: #### P REGU, DRUGRPD #### [facility] [address] [address] [address] Sara Matos TYPE AND SCREENon 11-17-2022 TYPE AND SCREEN Negative Normal [facility] Comment on above: Performed By: #### E RUR, UMICRO #### [facility] [address] [place] [address] Dr. Sara Matos US PREG DATING >[id number] [...] Date: 2022-09-07 10:38 Normal [facility] CHLAMYDIA/GONOCOCCUS DEENA (SW AB/URINE/PAPon 06-10-2022 Chlamydia trachomatis, DEENA Negative Normal Negative [facility] Comment on above: Performed By: #### T SH #### [facility] [address] [place] [address] Dr. Sara Matos Neisseria gonorrhoeae, DEENA Negative Normal Negative [facility] Comment on above: Performed By: #### T SH #### [facility] [address] [place] [address] Dr. Sara Matos GENITAL CULTUREon 06-09-2022 Genital [...] #### Mery SINHA UMICRO #### [facility] [address] [place] [address] Dr. Sara Matos ER URINE PROFILEon Bilirubin Ql (U) Negative Normal NEGATIVE [facility] Comment on above: Performed By: #### Mery SINHA UMICRO #### [facility] [address] [place] [address] Dr. Sara Matos Clarity (U) CLEAR Normal CLEAR [facility] Comment on above: Performed By: #### Mery SINHA UMICRO #### [facility] [address] [place] [address] Dr. Sara Matos Color (U) LT. YELLOW Normal YELLOW [facility] Comment on above: Performed By: #### Mery SINHA UMICRO #### [facility] [address] [place] [address] Dr. Sara Matos ERUAHD A micrscopic examination will be performed if indicated. Normal [facility] Comment on above: Performed By: #### Mery SINHA UMICRO #### [facility] [address] [place] [address] Dr. Sara Matos Glucose Ql (U) Negative Normal NEGATIVE [facility] Comment on above: Performed By: #### Mery SINHA UMICRO #### [facility] [address] [place] [address] Dr. Sara Matos Hemoglobin Ql (U) Negative Normal NEGATIVE [facility] Comment on above: Performed By: #### KACY GODWINRO #### [facility] [address] [place] [address] Dr. Sara Matos Ketones Ql (U) Negative Normal NEGATIVE [facility] Comment on above: Performed By: #### KACY GODIWNRO #### [facility] [address] [place] [address] Dr. Sara Matos LEUKOCYTES TRACE Abnormal NEGATIVE [facility] Comment on above: Performed By: #### KACY GODWINRO #### [facility] [address] [place] [address] Dr. Sara Matos Nitrite Ql (U) Negative Normal NEGATIVE [facility] Comment on above: Performed By: #### KACY GODWINRO #### [facility] [address] [place] [address] Dr. Sara Matos pH (U) 6.0 [pH] Normal 5-9 [facility] Comment on above: Performed By: #### KACY GODWINRO #### [facility] [address] [place] [address] Dr. Sara Matos SPEC GRAVITY 1.015 Normal 1.005-<=1.025 [facility] Comment on above: Performed By: #### KACY GODWINRO #### [facility] [address] [place] [address] Dr. Sara Matos UA PROTEIN Negative Normal NEGATIVE/ TRACE [facility] Comment on above: Performed By: #### FLORENTINO GODWINICRO #### [facility] [address] [place] [address] Dr. Sara Matos UR MICRO IND INDICATED Normal [facility] Comment on above: Performed By: #### KACY GODWINRO #### [facility] [address] [place] [address] Dr. Sara Matos Urobilinogen Qn (U) 0.2 {Ana'U}/dL Normal 0.2 - 1. 0 [facility] Comment on above: Performed By: #### E RUR, UMICRO #### [facility] [address] [place] [address] Dr. Sara Matos URon 06-06-2022 , QUAL Negative Normal NEGATIVE [facility] Comment on above: Performed By: #### P REGU #### [facility] [address] [place] [address] Dr. Sara Matos URINE MICROSCOPIC ONLYon BACTERIA NONE SEEN Normal NONE SEEN [facility] Comment on above: Performed By: #### E RUR, UMICRO #### [facility] [address] [place] [address] Dr. Sara Matos Bacteria identified Cx Nom (U) NOT INDICATED Normal [facility] Comment on above: Performed By: #### E RUR, UMICRO #### [facility] [address] [place] [address] Dr. Sara Matos CAST NONE SEEN Normal NONE SEEN [facility] Comment on above: Performed By: #### E RUR, UMICRO #### [facility] [address] [place] [address] Dr. Sara Matos Crystals LM Nom (Urine sed) NONE SEEN Normal NONE SEEN [facility] Comment on above: Performed By: #### E RUR, UMICRO #### [facility] [address] [place] [address] Dr. Sara Matos Epithelial cells LM Ql (Urine sed) FEW Abnormal NONE SEEN /RARE [facility] Comment on above: Performed By: #### E RUR, UMICRO #### [facility] [address] [place] [address] Dr. Sara Matos MUCOUS NONE SEEN Normal NONE SEEN The [facility] Comment on above: Performed By: #### E RUR, UMICRO #### [facility] [address] [place] [address] Dr. Sara Matos RBC NONE SEEN Abnormal 0-2 [facility] Comment on above: Performed By: #### E RUR, UMICRO #### [facility] [address] [address] [address] Sara Matos WBC 0-2 Abnormal NONE SEEN The [facility] Comment on above: Performed By: #### E JAIME SINHA #### [facility] [address] [address] [address] Sara Matos WET PREPon 06-06-2022 CLUE CELLS NONE SEEN Normal NONE SEEN The [facility] Comment on above: Performed By: #### T SH #### [facility] [address] [address] [address] Sara Matos FUNGAL ELEMENTS NONE SEEN Normal NONE SEEN The [facility] Comment on above: Performed By: #### T SH #### [facility] [address] [address] [address] Sara Matos RBC -WET PREP NONE SEEN Normal NONE SEEN [facility] Comment on above: Performed By: #### T SH #### [facility] [address] [address] [address] Sara Matos TRICHOMONAS NONE SEEN Normal NONE SEEN The [facility] Comment on above: Performed By: #### T SH #### [facility] [address] [address] [address] Sara Matos WBC- WET PREP FEW Abnormal NONE SEEN [facility] Comment on above: Performed By: #### T SH #### [facility] [address] [address] [address] Sara Matos WET PREP BACTERIA NONE SEEN Normal NONE SEEN [facility] Comment on above: Performed By: #### T SH #### [facility] [address] [address] [address] Sara Matos Abstracton 04-25-2022 Abstract [id number] Astrid Montague 1995 F Date Provider Department Center 04/25/2022 LILIAN AGUIRRE [facility] Family History Problem Relation Age of Onset Heart attack Maternal Grandmother Coronary artery disease Maternal Grandmother Family Status - Relation Status Age at Maternal Grandmother Paternal Grandmother Normal [facility] Abstracton 04-22-2022 Abstract [id number] Astrid Montague 1995 F Date Provider Department Center 04/22/2022 YURIDIA CARO [facility] Family History Problem Relation Age of Onset Heart attack Paternal Grandmother Family Status - Relation Status Age at Paternal Grandmother Normal [facility] US GUY DOP LEG LTon [...] DE LA O Date: 2022-04-01 17:05 Normal [facility] METANEPHRINES PLASMA FREEon 02-04-2022 Metanephrine, Pl 13.7 pg/mL Normal 0.0-88.0 [facility] Comment on above: Performed By: #### P URIEL DRUGRPD #### [facility] [address] [address] [address] Sara Matos Normetanephrine, Pl 45.6 pg/mL Normal 0.0-210.1 [facility] Comment on above: Performed By: #### P URIEL, DRUGRPD #### [facility] [address] [address] [address] Sara Matos CARDIAC ANTONY ADMITon 022 CK [Catalytic activity/Vol] 67 U/L Normal 26-192 [facility] Comment on above: Performed By: #### T SH #### [facility] [address] [address] [address] Sara Matos CK.MB [Mass/Vol] 0.99 ng/mL Normal <=3.60 The [facility] Comment on above: Performed By: #### T SH #### [facility] [address] [address] [address] Sara Matos HSTROP 4.7 pg/mL Normal 4.0-51.3 [facility] Comment on above: Result Comment: CUT- OFF POINTS HAVE BEEN ESTABLISHED BASED ON THE FOURTH UNIVERSAL DEFINITIONS OF MYOCARDIAL INFARCTION. THE UPPER REFERENCE LIMIT (URL) OF TROPONIN, DEFINED THE 99TH PERCENTILE OF cTnI DISTRIBUTION IN A REFERENCE POPULATION, HAS BEEN CONFIRMED THE DECISION THRESHOLD FOR MO DIAGNOSIS. Performed By: #### T SH #### [facility] [address] [place] [address] Dr. Sara Matos ELENA 34 ng/mL Normal 9-82 [facility] Comment on above: Performed By: #### T SH #### [facility] [address] [place] [address] Dr. Sara Matos CBC AUTO DIFFon 01-30-2022 BASO # 0.1 103/ul Normal 0.0-0.1 [facility] Comment on above: Performed By: #### T SH #### [facility] [address] [place] [address] Dr. Sara Matos Basophils/100 WBC (Bld) 0.8 % Normal 0.2-2.0 [facility] Comment on above: Performed By: #### T SH #### [facility] [address] [place] [address] Dr. Sara Matos EO # 0.1 103/ul Normal 0.0-0.7 [facility] Comment on above: Performed By: #### T SH #### [facility] [address] [place] [address] Dr. Sara Matos Eosinophils/100 WBC (Bld) 0.6 % Critically low 0.9-7.0 [facility] Comment on above: Performed By: #### T SH #### [facility] [address] [place] [address] Dr. Sara Matos Erythrocyte distribution width (RBC) [Ratio] 13.6 % Normal 11.0-15.0 [facility] Comment on above: Performed By: #### T SH #### [facility] [address] [place] [address] Dr. Sara Matos Hematocrit (Bld) [Volume fraction] 40.4 % Normal 36.0-48.0 [facility] Comment on above: Performed By: #### T SH #### [facility] [address] [place] [address] Dr. Sara Matos Hemoglobin (Bld) [Mass/Vol] 13.0 g/dL Normal 12.0-16.0 [facility] Comment on above: Performed By: #### T SH #### [facility] [address] [place] [address] Dr. Sara Matos IG # 0.03 10e3/ul Normal 0.00-0.03 [facility] Comment on above: Performed By: #### T SH #### [facility] [address] [place] [address] Dr. Sara Matos IG % 0.3 % Normal 0.0-0.5 [facility] Comment on above: Performed By: #### T SH #### [facility] [address] [place] [address] Dr. Sara Matos LYMPH # 2.6 103/ul Normal 1.2-3.8 [facility] Comment on above: Performed By: #### T SH #### [facility] [address] [place] [address] Dr. Sara Matos Lymphocytes/100 WBC (Bld) 26.5 % Normal 20.5-60.0 [facility] Comment on above: Performed By: #### T SH #### [facility] [address] [place] [address] Dr. Sara Matos MANUAL DIFF REQ NO Normal [facility] Comment on above: Performed By: #### T SH #### [facility] [address] [place] [address] Dr. Sara Matos MCH (RBC) [Entitic mass] 26.9 pg Normal 26.7-34.0 [facility] Comment on above: Performed By: #### T SH #### [facility] [address] [place] [address] Dr. Sara Matos MCHC (RBC) [Mass/Vol] 32.2 g/dL Normal 29.9-35.2 [facility] Comment on above: Performed By: #### T SH #### [facility] [address] [place] [address] Dr. Sara Matos MCV (RBC) [Entitic vol] 83.6 fL Normal 81.0-99.0 [facility] Comment on above: Performed By: #### T SH #### [facility] [address] [place] [address] Dr. Sara Matos MONO # 0.6 103/ul Normal 0.3-0.8 [facility] Comment on above: Performed By: #### T SH #### [facility] [address] [place] [address] Dr. Sara Matos Monocytes/100 WBC (Bld) 6.4 % Normal 1.7-12.0 [facility] Comment on above: Performed By: #### T SH #### [facility] [address] [place] [address] Dr. Sara Matos NEUT # 6.3 103/ul Normal 1.4-6.5 [facility] Comment on above: Performed By: #### T SH #### [facility] [address] [place] [address] Dr. Sara Matos Neutrophils/100 WBC (Bld) 65.4 % Normal 43.0-75.0 [facility] Comment on above: Performed By: #### T SH #### [facility] [address] [place] [address] Dr. Sara Matos Platelet mean volume (Bld) [Entitic vol] 11.8 fL Normal 9.5-13.5 [facility] Comment on above: Performed By: #### T SH #### [facility] [address] [place] [address] Dr. Sara Matos PLT 218 103/ul Normal 150-450 [facility] Comment on above: Performed By: #### T SH #### [facility] [address] [place] [address] Dr. Sara Matos RBC 4.83 106/ul Normal 4.20-5.40 [facility] Comment on above: Performed By: #### T SH #### [facility] [address] [place] [address] Dr. Sara Matos WBC 9.6 103/ul Normal 4.0-11.0 [facility] Comment on above: Performed By: #### T SH #### [facility] [address] [place] [address] Dr. Sara Matos ER URINE PROFILEon 2 Bilirubin Ql (U) Negative Normal NEGATIVE [facility] Comment on above: Performed By: #### E RUR, UMICRO #### [facility] [address] [place] [address] Dr. Sara Matos Clarity (U) CLEAR Normal CLEAR [facility] Comment on above: Performed By: #### E RUR, UMICRO #### [facility] [address] [place] [address] Dr. Sara Matos Color (U) LT. YELLOW Normal YELLOW [facility] Comment on above: Performed By: #### E RUR, UMICRO #### [facility] [address] [place] [address] Dr. Sara BUCKNER A micrscopic examination will be performed if indicated. Normal [facility] Comment on above: Performed By: #### E RUR, UMICRO #### [facility] [address] [place] [address] Dr. Sara Matos Glucose Ql (U) Negative Normal NEGATIVE [facility] Comment on above: Performed By: #### E RUR, UMICRO #### [facility] [address] [place] [address] Dr. Sara Matos Hemoglobin Ql (U) LARGE Abnormal NEGATIVE [facility] Comment on above: Performed By: #### E RUR, UMICRO #### [facility] [address] [place] [address] Dr. Sara Matos Ketones Ql (U) Negative Normal NEGATIVE [facility] Comment on above: Performed By: #### E RUR, UMICRO #### [facility] [address] [place] [address] Dr. Sara Matos LEUKOCYTES Negative Normal NEGATIVE [facility] Comment on above: Performed By: #### E RUR, UMICRO #### [facility] [address] [place] [address] Dr. Sara Matos Nitrite Ql (U) Negative Normal NEGATIVE [facility] Comment on above: Performed By: #### KACY GODWINRO #### [facility] [address] [place] [address] Dr. Sara Matos pH (U) 6.0 [pH] Normal 5-9 [facility] Comment on above: Performed By: #### KACY GODWINRO #### [facility] [address] [place] [address] Dr. Sara Matos SPEC GRAVITY <=1.005 Abnormal 1.005-<=1.025 [facility] Comment on above: Performed By: #### KACY GODWINRO #### [facility] [address] [place] [address] Dr. Sara Matos UA PROTEIN Negative Normal NEGATIVE/ TRACE [facility] Comment on above: Performed By: #### KACY GODWINRO #### [facility] [address] [place] [address] Dr. Sara Matos UR MICRO IND INDICATED Normal [facility] Comment on above: Performed By: #### KACY GODWINRO #### [facility] [address] [place] [address] Dr. Sara Matos Urobilinogen Qn (U) 0.2 {Ana'U}/dL Normal 0.2 - 1. 0 [facility] Comment on above: Performed By: #### KACY GODWINRO #### [facility] [address] [place] [address] Dr. Sara Matos PREG HCG QUALon 01-30-2022 , QUAL Negative Normal NEGATIVE [facility] Comment on above: Performed By: #### KACY GODWINRO #### [facility] [address] [place] [address] Dr. Sara Matos PROF 14(COMP METB)on 022 Albumin [Mass/Vol] 4.3 g/dL Normal 3.4-5.0 [facility] Comment on above: Performed By: #### T SH #### [facility] [address] [place] [address] Dr. Sara Matos Albumin/Globulin [Mass ratio] 1.2 {ratio} Normal [facility] Comment on above: Performed By: #### T SH #### [facility] [address] [place] [address] Dr. Sara Matos ALP [Catalytic activity/Vol] 63 U/L Normal 46-116 [facility] Comment on above: Performed By: #### T SH #### [facility] [address] [place] [address] Dr. Sara Matos ALT [Catalytic activity/Vol] 35 U/L Normal 14-59 [facility] Comment on above: Performed By: #### T SH #### [facility] [address] [place] [address] Dr. Sara Matos Anion gap [Moles/Vol] 9.7 mmol/L Normal [facility] Comment on above: Performed By: #### T SH #### [facility] [address] [place] [address] Dr. Sara Matos AST [Catalytic activity/Vol] 19 U/L Normal 15-37 [facility] Comment on above: Performed By: #### T SH #### [facility] [address] [place] [address] Dr. Sara Matos Bilirubin [Mass/Vol] 0.4 mg/dL Normal 0.2-1.0 [facility] Comment on above: Performed By: #### T SH #### [facility] [address] [place] [address] Dr. Sara Matos Calcium [Mass/Vol] 9.3 mg/dL Normal 8.5-10.1 [facility] Comment on above: Performed By: #### T SH #### [facility] [address] [place] [address] Dr. Sara Matos Chloride [Moles/Vol] 101 mmol/L Normal 98-107 [facility] Comment on above: Performed By: #### T SH #### [facility] [address] [place] [address] Dr. Sara Matos CO2 [Moles/Vol] 27.8 mmol/L Normal 21.0-32.0 [facility] Comment on above: Performed By: #### T SH #### [facility] [address] [place] [address] Dr. Sara Matos Creatinine [Mass/Vol] 0.78 mg/dL Normal 0.55-1.02 [facility] Comment on above: Performed By: #### T SH #### [facility] [address] [address] [address] Sara Matos EGFR-AF SCOTTISH >60 Normal >=60 [facility] Comment on above: Performed By: #### T SH #### [facility] [address] [place] [address] Dr. Sara Matos EGFR-NON AF SCOTTISH >60 Normal >=60 [facility] Comment on above: Performed By: #### T SH #### [facility] [address] [place] [address] Dr. Sara Matos Globulin (S) [Mass/Vol] 3.5 g/dL Normal [facility] Comment on above: Performed By: #### T SH #### [facility] [address] [place] [address] Dr. Sara Matos Glucose [Mass/Vol] 89 mg/dL Normal 74-106 [facility] Comment on above: Performed By: #### T SH #### [facility] [address] [place] [address] Dr. Sara Matos Potassium [Moles/Vol] 3.5 mmol/L Normal 3.5-5.1 [facility] Comment on above: Performed By: #### T SH #### [facility] [address] [place] [address] Dr. Sara Matos Protein [Mass/Vol] 7.8 g/dL Normal 6.4-8.2 [facility] Comment on above: Performed By: #### T SH #### [facility] [address] [place] [address] Dr. Sara Matos Sodium [Moles/Vol] 135 mmol/L Critically low 136-145 [facility] Comment on above: Performed By: #### T SH #### [facility] [address] [place] [address] Dr. Sara Matos Urea nitrogen [Mass/Vol] 6.0 mg/dL Critically low 7.0-18.0 [facility] Comment on above: Performed By: #### T SH #### [facility] [address] [place] [address] Dr. Sara Matos Urea nitrogen/Creatinine [Mass ratio] 7.7 mg/mg Normal [facility] Comment on above: Performed By: #### T SH #### [facility] [address] [place] [address] Dr. Sara Matos URINE MICROSCOPIC ONLYon BACTERIA NONE SEEN Normal NONE SEEN [facility] Comment on above: Performed By: #### E LONDONR, UMICRO #### [facility] [address] [place] [address] Dr. Sara Matos Bacteria identified Cx Nom (U) NOT INDICATED Normal [facility] Comment on above: Performed By: #### Meyr CALLAHANR, UMICRO #### [facility] [address] [place] [address] Dr. Sara Matos CAST NONE SEEN Normal NONE SEEN [facility] Comment on above: Performed By: #### E LONDONR, UMICRO #### [facility] [address] [place] [address] Dr. Sara Matos Crystals LM Nom (Urine sed) NONE SEEN Normal NONE SEEN [facility] Comment on above: Performed By: #### E RUR, UMICRO #### [facility] [address] [place] [address] Dr. Sara Matos Epithelial cells LM Ql (Urine sed) RARE Normal NONE SEEN /RARE [facility] Comment on above: Performed By: #### E RUR, UMICRO #### [facility] [address] [place] [address] Dr. Sara Matos MUCOUS NONE SEEN Normal NONE SEEN [facility] Comment on above: Performed By: #### E RUR, UMICRO #### [facility] [address] [place] [address] Dr. Sara Matos RBC 0-2 Normal 0-2 [facility] Comment on above: Performed By: #### KACY GODWINRO #### [facility] [address] [place] [address] Dr. Sara Matos WBC 0-2 Abnormal NONE SEEN [facility] Comment on above: Performed By: #### Mery SINHA UMICRO #### [facility] [address] [place] [address] Dr. Sara Matos CBC AUTO DIFFon 01-24-2022 BASO # 0.1 103/ul Normal 0.0-0.1 [facility] Comment on above: Performed By: #### Mery SINHA UMICRO #### [facility] [address] [place] [address] Dr. Sara Matos Basophils/100 WBC (Bld) 0.5 % Normal 0.2-2.0 [facility] Comment on above: Performed By: #### Mery SINHA UMJONIRO #### [facility] [address] [place] [address] Dr. Sara Matos EO # 0.0 103/ul Normal 0.0-0.7 [facility] Comment on above: Performed By: #### Mery SINHA UMICRO #### [facility] [address] [place] [address] Dr. Sara Matos Eosinophils/100 WBC (Bld) 0.4 % Critically low 0.9-7.0 [facility] Comment on above: Performed By: #### Mery SINHA, UMICRO #### [facility] [address] [place] [address] Dr. Sara Matos Erythrocyte distribution width (RBC) [Ratio] 13.3 % Normal 11.0-15.0 [facility] Comment on above: Performed By: #### Mery SINHA, UMICRO #### [facility] [address] [place] [address] Dr. Sara Matos Hematocrit (Bld) [Volume fraction] 39.4 % Normal 36.0-48.0 [facility] Comment on above: Performed By: #### Mery SINHA UMICRO #### [facility] [address] [place] [address] Dr. Sara Matos Hemoglobin (Bld) [Mass/Vol] 12.9 g/dL Normal 12.0-16.0 [facility] Comment on above: Performed By: #### Mery SINHA UMICRO #### [facility] [address] [place] [address] Dr. Sara Matos IG # 0.03 10e3/ul Normal 0.00-0.03 [facility] Comment on above: Performed By: #### Mery SINHA UMICRO #### [facility] [address] [place] [address] Dr. Sara Matos IG % 0.3 % Normal 0.0-0.5 [facility] Comment on above: Performed By: #### Mery SINHA UMICRO #### [facility] [address] [place] [address] Dr. Sara Matos LYMPH # 2.8 103/ul Normal 1.2-3.8 [facility] Comment on above: Performed By: #### FLORENTINO GODWINICRO #### [facility] [address] [place] [address] Dr. Sara Matos Lymphocytes/100 WBC (Bld) 25.3 % Normal 20.5-60.0 [facility] Comment on above: Performed By: #### FLORENTINO GODWINICRO #### [facility] [address] [place] [address] Dr. Sara Matos MANUAL DIFF REQ NO Normal [facility] Comment on above: Performed By: #### Mery SINHA UMICRO #### [facility] [address] [place] [address] Dr. Sara Matos MCH (RBC) [Entitic mass] 26.5 pg Critically low 26.7-34.0 [facility] Comment on above: Performed By: #### Mery SINHA UMICRO #### [facility] [address] [place] [address] Dr. Sara Matos MCHC (RBC) [Mass/Vol] 32.7 g/dL Normal 29.9-35.2 [facility] Comment on above: Performed By: #### Mery SINHA UMICRO #### [facility] [address] [place] [address] Dr. Sara Matos MCV (RBC) [Entitic vol] 80.9 fL Critically low 81.0-99.0 [facility] Comment on above: Performed By: #### Mery SINHA, UMICRO #### [facility] [address] [place] [address] Dr. Sara Matos MONO # 0.8 103/ul Normal 0.3-0.8 [facility] Comment on above: Performed By: #### Mery SINHA, UMICRO #### [facility] [address] [place] [address] Dr. Sara Matos Monocytes/100 WBC (Bld) 6.8 % Normal 1.7-12.0 [facility] Comment on above: Performed By: #### Mery SINHA, UMICRO #### [facility] [address] [place] [address] Dr. Sara Matos NEUT # 7.4 103/ul Critically high 1.4-6.5 [facility] [facility] Comment on above: Performed By: #### Mery SINHA, UMICRO #### [facility] [address] [place] [address] Dr. Sara Matos Neutrophils/100 WBC (Bld) 66.7 % Normal 43.0-75.0 [facility] Comment on above: Performed By: #### Mery SINHA, UMICRO #### [facility] [address] [place] [address] Dr. Sara Matos Platelet mean volume (Bld) [Entitic vol] 11.3 fL Normal 9.5-13.5 [facility] Comment on above: Performed By: #### Mery SINHA, UMICRO #### [facility] [address] [place] [address] Dr. Sara Matos PLT 281 103/ul Normal 150-450 [facility] Comment on above: Performed By: #### JAIME GODWIN #### [facility] [address] [place] [address] Dr. Sara Matos RBC 4.87 106/ul Normal 4.20-5.40 [facility] Comment on above: Performed By: #### JAIME GODWIN #### [facility] [address] [place] [address] Dr. Sara Matos WBC 11.1 103/ul Critically high 4.0-11.0 [facility] Comment on above: Performed By: #### JAIME GODWIN #### [facility] [address] [place] [address] Dr. Sara Matos MAGNESIUMon 01-24-2022 Magnesium [Mass/Vol] 2.0 mg/dL Normal 1.8-2.4 [facility] Comment on above: Performed By: #### JAIME GODWIN #### [facility] [address] [place] [address] Dr. Sara Matos T3 UPTAKEon 01-24-2022 T3U 37.0 % Normal 30.0-39.0 [facility] Comment on above: Performed By: #### T 3UP #### [facility] [address] [place] [address] Dr. Sara Matos T4on 01-24-2022 T4 [Mass/Vol] 11.60 ug/dL Normal 4.80-13.90 [facility] Comment on above: Performed By: #### T 4 #### [facility] [address] [place] [address] Dr. Sara Matos TSHon 01-24-2022 TSH 0.547 uIU/mL Normal 0.358-3.740 [facility] Comment on above: Performed By: #### T SH #### [facility] [address] [place] [address] Dr. Sara Matos TSH RANGE SEE BELOW Normal [facility] Comment on above: Result Comment: <0.3 4 UIU/ml HYPERTHYROID 0.34-5.60 UIU/ml EUTHYROID >5.60 UIU/ml HYPOTHYROID Performed By: #### T SH #### [facility] [address] [address] [address] Sara Matos CBC AUTO DIFFon 01-19-2022 BASO # 0.0 103/ul Normal 0.0-0.1 [facility] Comment on above: Performed By: #### T SH #### [facility] [address] [address] [address] Sara Matos Basophils/100 WBC (Bld) 0.5 % Normal 0.2-2.0 [facility] Comment on above: Performed By: #### T SH #### [facility] [address] [place] [address] Dr. Sara Matos EO # 0.1 103/ul Normal 0.0-0.7 [facility] Comment on above: Performed By: #### T SH #### [facility] [address] [place] [address] Dr. Sara Matos Eosinophils/100 WBC (Bld) 1.1 % Normal 0.9-7.0 [facility] Comment on above: Performed By: #### T SH #### [facility] [address] [place] [address] Dr. Sara Matos Erythrocyte distribution width (RBC) [Ratio] 13.6 % Normal 11.0-15.0 [facility] Comment on above: Performed By: #### T SH #### [facility] [address] [place] [address] Dr. Sara Matos Hematocrit (Bld) [Volume fraction] 38.4 % Normal 36.0-48.0 [facility] Comment on above: Performed By: #### T SH #### [facility] [address] [place] [address] Dr. Sara Matos Hemoglobin (Bld) [Mass/Vol] 12.5 g/dL Normal 12.0-16.0 [facility] Comment on above: Performed By: #### T SH #### [facility] [address] [place] [address] Dr. Sara Matos IG # 0.02 10e3/ul Normal 0.00-0.03 [facility] Comment on above: Performed By: #### T SH #### [facility] [address] [place] [address] Dr. Sara Matos IG % 0.2 % Normal 0.0-0.5 [facility] Comment on above: Performed By: #### T SH #### [facility] [address] [place] [address] Dr. Sara Matos LYMPH # 2.5 103/ul Normal 1.2-3.8 [facility] Comment on above: Performed By: #### T SH #### [facility] [address] [place] [address] Dr. Sara Matos Lymphocytes/100 WBC (Bld) 28.9 % Normal 20.5-60.0 [facility] Comment on above: Performed By: #### T SH #### [facility] [address] [place] [address] Dr. Sara Matos MANUAL DIFF REQ NO Normal [facility] Comment on above: Performed By: #### T SH #### [facility] [address] [place] [address] Dr. Sara Matos MCH (RBC) [Entitic mass] 26.9 pg Normal 26.7-34.0 [facility] Comment on above: Performed By: #### T SH #### [facility] [address] [place] [address] Dr. Sara Matos MCHC (RBC) [Mass/Vol] 32.6 g/dL Normal 29.9-35.2 [facility] Comment on above: Performed By: #### T SH #### [facility] [address] [place] [address] Dr. Sara Matos MCV (RBC) [Entitic vol] 82.6 fL Normal 81.0-99.0 [facility] Comment on above: Performed By: #### T SH #### [facility] [address] [place] [address] Dr. Sara Matos MONO # 0.7 103/ul Normal 0.3-0.8 [facility] Comment on above: Performed By: #### T SH #### [facility] [address] [place] [address] Dr. Sara Matos Monocytes/100 WBC (Bld) 7.5 % Normal 1.7-12.0 [facility] Comment on above: Performed By: #### T SH #### [facility] [address] [place] [address] Dr. Sara Matos NEUT # 5.4 103/ul Normal 1.4-6.5 [facility] Comment on above: Performed By: #### T SH #### [facility] [address] [place] [address] Dr. Sara Matos Neutrophils/100 WBC (Bld) 61.8 % Normal 43.0-75.0 [facility] Comment on above: Performed By: #### T SH #### [facility] [address] [place] [address] Dr. Sara Matos Platelet mean volume (Bld) [Entitic vol] 11.4 fL Normal 9.5-13.5 [facility] Comment on above: Performed By: #### T SH #### [facility] [address] [place] [address] Dr. Sara Matos PLT 233 103/ul Normal 150-450 [facility] Comment on above: Performed By: #### T SH #### [facility] [address] [place] [address] Dr. Sara Matos RBC 4.65 106/ul Normal 4.20-5.40 [facility] Comment on above: Performed By: #### T SH #### [facility] [address] [place] [address] Dr. aSra Matos WBC 8.8 103/ul Normal 4.0-11.0 [facility] Comment on above: Performed By: #### T SH #### [facility] [address] [place] [address] Dr. Sara Matos PROF 14(COMP METB)on 022 Albumin [Mass/Vol] 3.8 g/dL Normal 3.4-5.0 [facility] Comment on above: Performed By: #### E LONDONR, UMICRO #### [facility] [address] [address] [address] Sara Matos Albumin/Globulin [Mass ratio] 1.0 {ratio} Normal [facility] Comment on above: Performed By: #### E LONDONR, UMICRO #### [facility] [address] [address] [address] Sara Matos ALP [Catalytic activity/Vol] 65 U/L Normal 46-116 [facility] Comment on above: Performed By: #### E LONDONR, UMICRO #### [facility] [address] [address] [address] Sara Matos ALT [Catalytic activity/Vol] 52 U/L Normal 14-59 [facility] Comment on above: Performed By: #### E BHARATH, UMICRO #### [facility] [address] [place] [address] Dr. Sara Matos Anion gap [Moles/Vol] 12.0 mmol/L Normal [facility] Comment on above: Performed By: #### Mery SINHA, UMICRO #### [facility] [address] [place] [address] Dr. Sara Matos AST [Catalytic activity/Vol] 28 U/L Normal 15-37 [facility] Comment on above: Performed By: #### Mery SINHA, UMICRO #### [facility] [address] [place] [address] Dr. Sara Matos Bilirubin [Mass/Vol] 0.4 mg/dL Normal 0.2-1.0 [facility] Comment on above: Performed By: #### Mery SINHA, UMICRO #### [facility] [address] [address] [address] Sara Matos Calcium [Mass/Vol] 9.5 mg/dL Normal 8.5-10.1 [facility] Comment on above: Performed By: #### Mery SINHA, UMICRO #### [facility] [address] [address] [address] Sara Matos Chloride [Moles/Vol] 103 mmol/L Normal 98-107 [facility] Comment on above: Performed By: #### Mery SINHA UMICRO #### [facility] [address] [place] [address] Dr. Sara Matos CO2 [Moles/Vol] 26.7 mmol/L Normal 21.0-32.0 [facility] Comment on above: Performed By: #### Mery SINHA UMICRO #### [facility] [address] [place] [address] Dr. Sara Matos Creatinine [Mass/Vol] 0.69 mg/dL Normal 0.55-1.02 [facility] Comment on above: Performed By: #### Mery SINHA UMICRO #### [facility] [address] [place] [address] Dr. Sraa Matos EGFR-AF SCOTTISH >60 Normal >=60 [facility] Comment on above: Performed By: #### Mery SINHA UMICRO #### [facility] [address] [place] [address] Dr. Sara Matos EGFR-NON AF SCOTTISH >60 Normal >=60 [facility] Comment on above: Performed By: #### Mery SINHA UMICRO #### [facility] [address] [place] [address] Dr. Sara Matos Globulin (S) [Mass/Vol] 3.9 g/dL Normal [facility] Comment on above: Performed By: #### FLORENTINO GODWINICRO #### [facility] [address] [place] [address] Dr. Sara Matos Glucose [Mass/Vol] 84 mg/dL Normal 74-106 [facility] Comment on above: Performed By: #### Mery SINHA UMICRO #### [facility] [address] [place] [address] Dr. Sara Matos Potassium [Moles/Vol] 3.7 mmol/L Normal 3.5-5.1 [facility] Comment on above: Performed By: #### Mery SINHA UMICRO #### [facility] [address] [place] [address] Dr. Sara Matos Protein [Mass/Vol] 7.7 g/dL Normal 6.4-8.2 [facility] Comment on above: Performed By: #### JAIME GODWIN #### [facility] [address] [address] [address] Sara Matos Sodium [Moles/Vol] 138 mmol/L Normal 136-145 [facility] Comment on above: Performed By: #### KACY GODWINRO #### [facility] [address] [address] [address] Sara Matos Urea nitrogen [Mass/Vol] 8.0 mg/dL Normal 7.0-18.0 [facility] Comment on above: Performed By: #### KACY GODWINRO #### [facility] [address] [place] [address] Dr. Sara Matos Urea nitrogen/Creatinine [Mass ratio] 11.6 mg/mg Normal [facility] Comment on above: Performed By: #### KACY GODWINRO #### [facility] [address] [place] [address] Dr. Sara Matos TROPONIN, HIGH SENSITIVITYon 01-19-2022 HSTROP <4.0 Normal 4.0-51.3 [facility] Comment on above: Result Comment: CUT- OFF POINTS HAVE BEEN ESTABLISHED BASED ON THE FOURTH UNIVERSAL DEFINITIONS OF MYOCARDIAL INFARCTION. THE UPPER REFERENCE LIMIT (URL) OF TROPONIN, DEFINED THE 99TH PERCENTILE OF cTnI DISTRIBUTION IN A REFERENCE POPULATION, HAS BEEN CONFIRMED THE DECISION THRESHOLD FOR MO DIAGNOSIS. Performed By: #### KACY GODWINRO #### [facility] [address] [place] [address] Dr. Sara Matos XR CHEST 1 Von [...] Date: 2022-01-19 21:50 Normal [facility] US GUY DOP LEG LTon 12-26-19 22 [...] 09-04-2017 PROTEIN:MCNC:24H:UR INE:QN: 102 mg/24hr Normal 28-141 [facility] Comment on above: Performed By: #### 2 [id number], [id number] ####[facility] [id number] [place] [address] ALBUMIN/PROTEIN.TOT AL:MFR:PT:URINE:QN: ELECTROPHORESIS 8.0 mg/dL Invalid Interpretation Code [facility] Comment on above: Result Comment: The reference range and other method performance specifications have not been established for this test; results should be integrated into the clinical context for interpretation. Performed By: #### 2 [id number], [id number] ####[facility] [id number] [place] [address] U24 Total Volon 09-04-2017 Hrs Glenna 24 hour(s) Invalid Interpretation Code [facility] Comment on above: Order Comment: Order added by Discern Expert Performed By: #### 2 [id number], [id number] ####[facility] [id number] [place] [address] SPECIMEN VOLUME:VOL:XXX:URIN E:QN: 1280 mL Invalid Interpretation Code [facility] Comment on above: Order Comment: Order added by Discern Expert Performed By: #### 2 [id number] ####[facility] [id number] [place] [address] Vital Signs Date Time Vital Sign Value Performing Clinician Yani lity 06-27-2024 10:38-0500 Body mass index (BMI) [Ratio] 47.1 kg/m2 Jonas Jose DO Work Phone: [facility] 06-27-2024 10:38-0500 Body weight 124.47 kg Jonas Jose DO Work Phone: [facility] 06-27-2024 10:38-0500 Diastolic blood pressure 72 mm[Hg] Jonas Jose DO Work Phone: [facility] 06-27-2024 10:38-0500 Systolic blood pressure 118 mm[Hg] Jonas Jose DO Work Phone: [facility] Healthcare Encounters Encounter Date Encounter Type Care Provider Facility Start: 06-27-2024 End: 06-27-2024 Bamboo flowsheet Jonas Jose DO Work Phone: [facility] Start: 06-27-2024 End: 06-27-2024 Bamboo flowsheet Jonas Jose DO Work Phone: [facility] Start: 06-27-2024 End: 06-27-2024 Office outpatient visit 15 minutes Jonas Jose DO Work Phone: [facility] Comment on above: Third trimester preg [...] Start: 09-04-2017 End: 09-05-2017 Ambulatory Jonah York Facility:[facility] [place] Plan of Treatment Date Care Activity Detail Author Start: 07-11-2024 End: 07-11-2024 Patient encounter procedure 07/11/2024 10:10 AM EST Routine [facility] [address] [place] [id number] Isabela Palmer PA [address] [place], [place] [id number] [facility] Start: 07-11-2024 End: 07-11-2024 Professional / ancillary services management 07/11/2024 9:30 AM EST Ancillary Procedure [facility] [address] [place] [address] [facility] Start: 06-27-2024 End: 06-27-2025 US for US OB SCAN FOR GROWTH Imaging Routine Excessive growth affecting management of , antepartum, single or unspecified fetus Expected: 06/27/2024 (Approximate), Expires: 06/27/2025 [facility] Work Phone: Comment on above: Expected: 06/27/2024 (Approximate), Expires: 06/27/2025 Start: 04-16-2024 Influenza vaccination Influenza Vacc ine (#1) [facility] Payers Date Payer Category Payer Medicaid (Managed Care) [facility] MEDICAID [id number] 1995 Unknown [id number] 2..840.1.916696.3.579.2. 593 1995 Unknown [id number] 2.16.840.1.743865.3.579.2. 593 1995 Unknown [id number] 2.16.840.1.592055.3.579.2. 593 1995 Unknown [id number] 2.16.840.1.347517.3.579.2. 593 1995 Unknown [id number] 2.16.840.1.515790.3.579.2. 593 1995 Unknown [id number] 2.16.840.1.116347.3.579.2. 593 1995 Unknown [id number] 2.16.840.1.187252.3.579.2. 593 1995 Unknown [id number] 2.16.840.1.700250.3.579.2. 593 1995 Unknown [id number] 2.16.840.1.041002.3.579.2. 593 1995 Unknown [id number] 2.16.840.1.682136.3.579.2. 593 1995 Unknown [id number] 2.16.840.1.037541.3.579.2. 593 1995 Unknown [id number] 2.16.840.1.030248.3.579.2. 593 1995 Unknown [id number] 2.16.840.1.702541.3.579.2. 593 1995 Unknown [id number] 2.16.840.1.915311.3.579.2. 593 1995 Unknown [id number] 2.16.840.1.276601.3.579.2. 593 1995 Unknown [id number] 2.16.840.1.433307.3.579.2. 1259 1995 Unknown [id number] 2.16.840.1.501789.3.579.2. 1259 1995 Unknown [id number] 2.16.840.1.616983.3.579.2. 1259 1995 Unknown [id number] 2.16.840.1.965952.3.579.2. 1259 1959 Self-pay [id number] 1959 Unknown [id number] Social History Date Type Detail Facility Start: [...] appointment. MEDICATIONS Current Outpatient Medications Medication Instructions [id number] (Tylenol Cold Multi-Symptom) 5-10-325 mg/15 mL liquid [...] nursing note reviewed. Exam conducted with a gamer present. Vitals: Estimated body mass index is [...] Jonas Garcia DO documented in this encounter [facility] Healthcare Evaluation note Note Date & [...] content) DATE CREATED AUTHOR 02/04/2018 Chester Eid [facility] DATE CREATED AUTHOR AUTHOR'S ORGANIZ ATION 04/25/2022 [facility] DATE CREATED AUTHOR AUTHOR'S ORGANIZ ATION 12/13/2022 [facility] DATE CREATED AUTHOR AUTHOR'S ORGANIZ ATION 06/29/2024 [facility] EPIC Reason for Visit (unrecogniz [...] BE BASED ON THE PRIMARY CLINICAL RECORDS. [facility] [employer] [facility]. provides no warranty or guarantee of the accuracy or completeness of information in this document.
== END 2024-07-18 10:30 | disposition home or self-care (01) ==
LOC: NOMS 10:29
PROVIDERS: PCP Nurse Practitioner Family; Visit Provider Obstetrics & Gynecology
DX: O36.63X0 Maternal care for excessive fetal growth, third trimester, not applicable or unspecified (principal); Z3A.35 35 weeks gestation of pregnancy; Z34.93 Encounter for supervision of normal pregnancy, unspecified, third trimester
CPT/HCPCS: 76816; 87081; 87150

== ENCOUNTER 2024-07-18 19:54 | Outpatient (REF) | payer OTHER, SELFPAY ==
--- OUTSIDE RECORDS SUMMARY | 2024-07-18 20:13 | XMS_ITS | CCD ---
Author Organization [facility] Care Team Providers Care Floodplain Manager Name Role Phone Jonah York Unavailable Unavailable [...] Attending Unavailable CHELE, CHANNING Primary Care Unavailable DEO LYMANA Admitting Unavailable SWEETIE LYMAN Attending Unavailable KARASIK ., DR SEAY Consulting Unavailabl e KARASIK ., DR SEAY Attending Unavailabl e KARASIK ., DR SEAY Admitting Unavailabl e CHELE, [facility] Primary Care Unavailable KARASIK ., DR SEAY Consulting Unavailabl e KARASIK ., DR SEAY Attending Unavailabl e KARASIK ., DR SEAY Admitting Unavailabl e CHELE, [facility] Primary Care Unavailable KARASIK ., DR SEAY Attending Unavailabl e KARASIK ., DR SEAY Admitting Unavailabl e CHELE, [facility] Primary Care Unavailable KARASIK ., DR SEAY Consulting Unavailabl e JAYLYN, DR CHARLIE Aguero Consulting Unavailable CHELE, [facility] Primary Care Unavailable KENTRELL, DR WANDY Silva Attending Unavailabl e KENTRELL, DR WANDY Silva Admitting Unavailabl e KENTRELL, DR WANDY Silva Consulting Unavailadi e LEAHY ., MR GUERRERO Consulting Unavailable JONAS GARCIA Attending Unavailable ISABELA PALMER Attending Unavailable JONAS GARCIA Attending Unavailable [facility] Primary Care Provider Unavailabl e Allergies Allergy Classification Reported Allergen(s) Allergy Type Date of Onset Reaction(s) Facility (2 sources) Escitalopram Drug Allergy 11-12-2021 [facility] Repository (6 sources) Escitalopram Drug Allergy 11-28-2021 Headache [facility] Work Phone: Medications Current Medications Medication Drug Class(es) Dates Sig (Normalized) Sig (Original) acetaminophen 21.7 mg/ml / dextromethorphan hydrobromide 0.667 mg/ml / phenylephrine hydrochloride 0.333 mg/ml oral solution (6 sources) Uncompetitive C-emviym-G-aspartat e Receptor Antagonist, Sigma-1 Agonist, alpha-1 Adrenergic Agonist take 15 mL by mouth every four hours as needed for congestion phenylephrine-DM -APAP (Tylenol Cold Multi-Symptom) 5-10-325 mg/15 mL liquid Take 15 mL by mouth every 4 (four) hours if needed for congestion Active amoxicillin 875 mg oral tablet (2 sources) Penicillin-class Antibacterial Start: 07-17-2024 take 1 tablet by mouth in the morning amoxicillin (Amoxil) 875 MG tablet Take 875 mg by mouth in the morning and 875 mg before bedtime. 07/17/2024 Active Problems Active Problems Problem Classification Problem [...] not applicable or unspecified] 06-27-2024 Episodic Other complications of (2 sources) Abnormal amniotic fluid; Translations: [Other abnormal findings on screening of mother] 07-18-2024 Episodic Other and delivery including normal (12 sources) Encounter for supervision of other normal , second trimester; Translations: [Encounter for test, result positive] Onset: 09-07-2022 Episodic Other screening for suspected conditions (not mental disorders or infectious disease) (5 sources) Encounter for screening for diabetes mellitus; Translations: [Encounter for other specified screening] Onset: 12-06-2022 Episodic Residual codes; unclassified (4 sources) Gestation period, 32 weeks; Translations: [32 weeks gestation of ] 06-27-2024 Episodic Residual codes; unclassified (2 sources) Gestation period, 35 weeks; Translations: [35 weeks gestation of ] 07-18-2024 Episodic Unclassified (1 source) COUGH, UNSPECIFIED; Translations: [COUGH, UNSPECIFIED] Onset: 12-26-2021 Unclassified (6 sources) OB Reminders Onset: 04-11-2024 04-11-2024 Past or Other Problems Problem Classification Problem Date Documented Date Episodic/Chronic Cardiac dysrhythmias (4 sources) Bradycardia, unspecified; Translations: [BRADYCARDIA UNSPECIFIED] Onset: 02-25-2022 Episodic Genitourinary symptoms and ill-defined conditions (4 sources) Dysuria; Translations: [DYSURIA] Onset: 06-06-2022 Episodic Other aftercare (1 source) Other rat exterminator (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) drug therapy; Translations: [OTH 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 DENTAL ASSISTANT CURRENT DRUG THERAPY] Onset: 01-26-2022 Episodic Other aftercare (1 source) residential (current) use of anticoagulants; Translations: [DIPLOMA DENTAL ASSISTANT CURRNT USE ANTICOAGULANTS] Onset: 12-26-2021 Episodic Other [...] Test Name Value Interpretation Reference Range Facility Urinalysis macro (dipstick) panel (U)on 07-18-2024 Bilirubin, UA Negative Negative - 4(70) +++ mg/dL [facility] Blood, UA Negative Negative - 50 Shahbaz/mcL [facility] Clarity, UA Clear [facility] Color, UA Yellow [facility] Glucose, UA Negative Negative - 1999(110) ++++ mg/dL [facility] Interpretation and review of laboratory results Abnormal [facility] Ketones, UA Negative Negative - 160(16) ++++ mg/dL [facility] Leukocytes, UA Trace Negative - 500+++ Edward/mcL [facility] Nitrite, UA Negative Negative - Positive [facility] pH, UA 7 5 - 9 [facility] Protein, UA Negative Negative - 1999(20) ++++ mg/dL [facility] Spec Grav, UA 1.015 1 - 1.03 [facility] Urobilinogen, UA 0.2 0.2 - 12 mg/dL [facility] GLUCOSE - 1HRon 12-10-2022 Glucose [Mass/Vol] 98 mg/dL Normal 74-106 [facility] Comment on above: Performed By: #### G LU1 #### [facility] [address] [place] [address] Dr. Sara Matos HEMOGRAM AND PLATELon 2022 Hematocrit (Bld) [Volume fraction] 33.8 % Critically low 36.0-48.0 [facility] Comment on above: Performed By: #### T SH #### [facility] [address] [place] [address] Dr. Sara Matos Hemoglobin (Bld) [Mass/Vol] 11.1 g/dL Critically low 12.0-16.0 [facility] Comment on above: Performed By: #### T SH #### [facility] [address] [place] [address] Dr. Sara Maots MCH (RBC) [Entitic mass] 28.6 pg Normal 26.7-34.0 [facility] Comment on above: Performed By: #### T SH #### [facility] [address] [place] [address] Dr. Sara Matos MCHC (RBC) [Mass/Vol] 32.8 g/dL Normal 29.9-35.2 [facility] Comment on above: Performed By: #### T SH #### [facility] [address] [place] [address] Dr. Sara Matos MCV (RBC) [Entitic vol] 87.1 fL Normal 81.0-99.0 [facility] Comment on above: Performed By: #### T SH #### [facility] [address] [place] [address] Dr. Sara Matos PLT 188 103/ul Normal 150-450 [facility] Comment on above: Performed By: #### T SH #### [facility] [address] [place] [address] Dr. Sara Matos RBC 3.88 106/ul Critically low 4.20-5.40 [facility] Comment on above: Performed By: #### T #### [facility] [address] [place], [place] [address] Dr. Sara Matos WBC 9.8 103/ul Normal 4.0-11.0 [facility] Comment on above: Performed By: #### T #### [facility] [address] [place] [id number] Sara Matos US PREG ANATOMY SINGLEon [...] LA O Date: 2022-12-02 15:25 Normal [facility] HEP B SURFACE ANTIGEN SCREEN on 04-05-2023 HBsAg Screen Negative Normal Negative [facility] Comment on above: Performed By: #### E BHARATH, UMICRO #### [facility] [address] [place] [address] Dr. Sara Matos HEPATITIS C VIRUS AB W/ REFL EX QUANTon 11-18-2022 HCV AB Non-Reactive Normal Non Reactive [facility] Comment on above: Performed By: #### E BHARATH, UMJONIRO #### [facility] [address] [place] [address] Dr. Sara Matos Interpretation: Comment Normal [facility] Comment on above: Result Comment: Not infected with HCV unless early or acute infection is suspected (which may be delayed in an immunocompromised individual), or other evidence exists to indicate HCV infection. Performed By: #### E KACY SINHARO #### [facility] [address] [place] [address] Dr. Sara Matos HIV 1 AND 2 WITH REFLEXon HIV Screen 4th Generation wRfx Non-Reactive Normal Non Reactive [facility] Comment on above: Result Comment: HIV Negative HIV-1/HIV-2 antibodies and HIV-1 p24 antigen were NOT detected. There is no laboratory evidence of HIV infection. Performed By: #### Mery SINHA UMJONIRO #### [facility] [address] [place] [address] Dr. Sara Matos RPR QUANTon 11-18-2022 Rapid Plasma Reagin, Quant Non-Reactive Normal NonRea<1:1 [facility] Comment on above: Result Comment: Plea se Note: This test does not meet current guidelines for screening and diagnosis of syphilis. This test is intended for following treatment response in patients being treated for syphilis infection. To screen for syphilis infection, a reflex cascade that includes both RPR and a treponema-specific assay should be utilized, such as Treponema pallidum (Syphilis) Screening [place] (335598) or Rapid Plasma Reagin (RPR) Test With Reflex to Quantitative RPR and Confirmatory Treponema pallidum Antibodies (151835). Performed By: #### T SH #### [facility] [address] [place] [address] Dr. Sara Matos RUBELLA AB IGGon 11-18-2022 Rubella Antibodies, IgG 3.67 index Normal Immune >0.99 [facility] Comment on above: Result Comment: Non- immune <0.90 Equivocal 0.90 - 0.99 Immune >0.99 Performed By: #### T SH #### [facility] [address] [place] [address] Dr. Sara Matos BOX TEST SENT OUTon 11-18-19 23 SENT TO REF LAB 11/17/2022 Normal [facility] Comment on above: Performed By: #### T SH #### [facility] [address] [place] [address] Dr. Sara Matos CBC AUTO DIFFon 11-17-2022 BASO # 0.0 103/ul Normal 0.0-0.1 [facility] Comment on above: Performed By: #### KACY GODWINRO #### [facility] [address] [place] [address] Dr. Sara Matos Basophils/100 WBC (Bld) 0.4 % Normal 0.2-2.0 [facility] Comment on above: Performed By: #### KACY GODWINRO #### [facility] [address] [place] [address] Dr. Sara Matos EO # 0.1 103/ul Normal 0.0-0.7 [facility] Comment on above: Performed By: #### Mery SINHA JONIRO #### [facility] [address] [place] [address] Dr. Sara Matos Eosinophils/100 WBC (Bld) 1.3 % Normal 0.9-7.0 [facility] Comment on above: Performed By: #### KACY GODWINRO #### [facility] [address] [place] [address] Dr. Sara Matos Erythrocyte distribution width (RBC) [Ratio] 12.3 % Normal 11.0-15.0 [facility] Comment on above: Performed By: #### Mery SINHA ICRO #### [facility] [address] [place] [address] Dr. Sara Matos Hematocrit (Bld) [Volume fraction] 33.6 % Critically low 36.0-48.0 [facility] Comment on above: Performed By: #### KACY GODWINRO #### [facility] [address] [place] [address] Dr. Sara Matos Hemoglobin (Bld) [Mass/Vol] 11.3 g/dL Critically low 12.0-16.0 [facility] Comment on above: Performed By: #### KCAY GODWINRO #### [facility] [address] [place] [address] Dr. Sara Matos IG # 0.04 10e3/ul Critically high 0.00-0.03 [facility] Comment on above: Performed By: #### KACY GODWINRO #### [facility] [address] [place] [address] Dr. Sara Matos IG % 0.4 % Normal 0.0-0.5 [facility] Comment on above: Performed By: #### KACY GODWINRO #### [facility] [address] [place] [address] Dr. Sara Matos LYMPH # 1.7 103/ul Normal 1.2-3.8 [facility] Comment on above: Performed By: #### KACY GODWINRO #### [facility] [address] [place] [address] Dr. Sara Matos Lymphocytes/100 WBC (Bld) 16.7 % Critically low 20.5-60.0 [facility] Comment on above: Performed By: #### FLORENTINO GODWINICRO #### [facility] [address] [place] [address] Dr. Sara Matos MANUAL DIFF REQ NO Normal [facility] Comment on above: Performed By: #### FLORENTINO GODWINICRO #### [facility] [address] [place] [address] Dr. Sara Matos MCH (RBC) [Entitic mass] 28.8 pg Normal 26.7-34.0 [facility] Comment on above: Performed By: #### E RUR, UMICRO #### [facility] [address] [place] [address] Dr. Sara Matos MCHC (RBC) [Mass/Vol] 33.6 g/dL Normal 29.9-35.2 [facility] Comment on above: Performed By: #### E RUR, UMICRO #### [facility] [address] [place] [address] Dr. Sara Matos MCV (RBC) [Entitic vol] 85.5 fL Normal 81.0-99.0 [facility] Comment on above: Performed By: #### E RUR, UMICRO #### [facility] [address] [place] [address] Dr. Sara Matos MONO # 0.6 103/ul Normal 0.3-0.8 [facility] Comment on above: Performed By: #### E BHARATH, UMICRO #### [facility] [address] [place] [address] Dr. Sara Matos Monocytes/100 WBC (Bld) 5.9 % Normal 1.7-12.0 [facility] Comment on above: Performed By: #### Mery SINHA UMICRO #### [facility] [address] [place] [address] Dr. Sara Matos NEUT # 7.7 103/ul Critically high 1.4-6.5 [facility] Comment on above: Performed By: #### E BHARATH, UMICRO #### [facility] [address] [place] [address] Dr. Sara Matos Neutrophils/100 WBC (Bld) 75.3 % Critically high 43.0-75.0 [facility] Comment on above: Performed By: #### E BHARATH, UMICRO #### [facility] [address] [place] [address] Dr. Sara Matos Platelet mean volume (Bld) [Entitic vol] 11.2 fL Normal 9.5-13.5 [facility] Comment on above: Performed By: #### E BHARATH, UMICRO #### [facility] [address] [place] [address] Dr. Sara Matos PLT 217 103/ul Normal 150-450 [facility] Comment on above: Performed By: #### JAIME GODWIN #### [facility] [address] [place] [address] Dr. Sara Matos RBC 3.93 106/ul Critically low 4.20-5.40 [facility] Comment on above: Performed By: #### JAIME GODWIN #### [facility] [address] [place] [address] Dr. Sara Matos WBC 10.2 103/ul Normal 4.0-11.0 [facility] Comment on above: Performed By: #### JAIME GODWIN #### [facility] [address] [place] [address] Dr. Sara aMtos CULTURE URINEon 11-17-2022 CULTURE URINE Culture Observations : HEAVY GROWTH OF MIXED GENITAL JP. NO POTENTIAL PATHOGENS SEEN. Normal [facility] Comment on above: Performed By: #### JAIME GODWIN #### [facility] [address] [place] [address] Dr. Sara Matos DRUG SCREEN RAPID (URINE)on 11-17-2022 AMP Negative Normal NEGATIVE [facility] Comment on above: Performed By: #### P REGU, DRUGRPD #### [facility] [address] [place] [address] Dr. Sara Matos BAR Negative Normal NEGATIVE [facility] Comment on above: Performed By: #### P REGU, DRUGRPD #### [facility] [address] [place] [address] Dr. Sara Maots BUP Negative Normal NEGATIVE [facility] Comment on above: Performed By: #### P REGU, DRUGRPD #### [facility] [address] [place] [address] Dr. Sara Matos BZO Negative Normal NEGATIVE [facility] Comment on above: Performed By: #### P REGU, DRUGRPD #### [facility] [address] [place] [address] Dr. Sara Matos COLLEEN Negative Normal NEGATIVE [facility] Comment on above: Performed By: #### P REGU, DRUGRPD #### [facility] [address] [place] [address] Dr. Sara Matos CUT-OFFS SEE BELOW Normal [facility] Comment on above: Result Comment: AMP (Amphetamine): [...] Performed By: #### P REGU, DRUGRPD #### [facility] [address] [place] [address] Dr. Sara Matos DRUG CUT HEADER DRUG CLASS TEST SYSTEM CUT-OFF CONCENTRATIONS ARE FOLLOWS: Normal [facility] Comment on above: Performed By: #### P REGU, DRUGRPD #### [facility] [address] [place] [address] Dr. Sara Matos mAMP Negative Normal NEGATIVE [facility] Comment on above: Performed By: #### P REGU, DRUGRPD #### [facility] [address] [place] [address] Dr. Sara Matos MTD Negative Normal NEGATIVE [facility] Comment on above: Performed By: #### P REGU, DRUGRPD #### [facility] [address] [place] [address] Dr. Sara Matos OPI Negative Normal NEGATIVE [facility] Comment on above: Performed By: #### P REGU, DRUGRPD #### [facility] [address] [place] [address] Dr. Sara Matos OXY Negative Normal NEGATIVE [facility] Comment on above: Performed By: #### P REGU, DRUGRPD #### [facility] [address] [place] [address] [address] Sara Matos PCP Negative Normal NEGATIVE [facility] Comment on above: Performed By: #### P REGU, DRUGRPD #### [facility] [address] [place] [address] [address] Sara Matos PPX Negative Normal NEGATIVE [facility] Comment on above: Performed By: #### P REGU, DRUGRPD #### [facility] [address] [place] [address] Dr. Sara Matos TCA Negative Normal NEGATIVE [facility] Comment on above: Performed By: #### P REGU, DRUGRPD #### [facility] [address] [place] [address] Dr. Sara Matos THC Negative Normal NEGATIVE [facility] Comment on above: Performed By: #### P REGU, DRUGRPD #### [facility] [address] [place] [address] Dr. Sara Matos GLYCOHEMOGLOBIN A1Con 2022 ADA RECOMMENDATION SEE BELOW Normal [facility] Comment on above: Result Comment: ADA RECOMMENDED LIMIT 4.0 - 6.0 ADA THERAPEUTIC TARGET < 7.0 ACTION SUGGESTED > 7.0 Performed By: #### A 1C #### [facility] [address] [place] [address] Dr. Sara Matos Glucose [Mass/Vol] 85 mg/dL Normal [facility] Comment on above: Performed By: #### A 1C #### [facility] [address] [place] [address] Dr. Sara Matos HbA1c (Bld) [Mass fraction] 4.6 % Normal 4.5-6.2 [facility] Comment on above: Performed By: #### A 1C #### [facility] [address] [place] [address] Dr. Sara Matos URon 11-17-2022 , QUAL Positive Abnormal NEGATIVE [facility] Comment on above: Performed By: #### P REGU, DRUGRPD #### [facility] [address] [place] [address] Dr. Sara Matos TYPE AND SCREENon 11-17-2022 TYPE AND SCREEN Negative Normal [facility] Comment on above: Performed By: #### E JAIME SINHA #### [facility] [address] [place] [address] Dr. Sara Matos PREG DATING >14WEEKSon PREG DATING >14WEEKS EXAMINATION: US PREG DATING [...] LA O Date: 2022-09-07 10:38 Normal [facility] CHLAMYDIA/GONOCOCCUS DEENA (SW AB/URINE/PAPon 06-10-2022 Chlamydia trachomatis, DEENA Negative Normal Negative [facility] Comment on above: Performed By: #### T SH #### [facility] [address] [place] [address] Dr. Sara Matos Neisseria gonorrhoeae, DEENA Negative Normal Negative [facility] Comment on above: Performed By: #### T SH #### [facility] [address] [place] [address] Dr. Sara Matos GENITAL CULTUREon 06-09-2022 Genital Culture, Routine NOBACT Normal [facility] Comment on above: Result Comment: [...] this specimen.) Performed By: #### Mery SINHA UMJONIRO #### [facility] [address] [place] [address] Dr. Sara SANDOVAL URINE PROFILEon 2 Bilirubin Ql (U) Negative Normal NEGATIVE [facility] Comment on above: Performed By: #### Mery SINHA UMICRO #### [facility] [address] [place] [address] Dr. Sara Matos Clarity (U) CLEAR Normal CLEAR [facility] Comment on above: Performed By: #### Mery SINHA UMICRO #### [facility] [address] [place] [address] Dr. Sara Matos Color (U) LT. YELLOW Normal YELLOW [facility] Comment on above: Performed By: #### Mery SINHA UMICRO #### [facility] [address] [place] [address] Dr. Sara FREEDMANAHHumphrey A micrscopic examination will be performed if indicated. Normal [facility] Comment on above: Performed By: #### Mery SINHA UMICRO #### [facility] [address] [place] [address] Dr. Sara Matos Glucose Ql (U) Negative Normal NEGATIVE [facility] Comment on above: Performed By: #### Mery SINHA UMICRO #### [facility] [address] [place] [address] Dr. Sara Matos Hemoglobin Ql (U) Negative Normal NEGATIVE [facility] Comment on above: Performed By: #### Mery SINHA UMICRO #### [facility] [address] [place] [address] Dr. Sara Matos Ketones Ql (U) Negative Normal NEGATIVE [facility] Comment on above: Performed By: #### Mery SINHA UMICRO #### [facility] [address] [place] [address] Dr. Sara Matos LEUKOCYTES TRACE Abnormal NEGATIVE [facility] Comment on above: Performed By: #### Mery SINHA UMICRO #### [facility] [address] [place] [address] Dr. Sara Matos Nitrite Ql (U) Negative Normal NEGATIVE [facility] Comment on above: Performed By: #### Mery SINHA UMICRO #### [facility] [address] [place] [address] [address] Sara Matos pH (U) 6.0 [pH] Normal 5-9 [facility] Comment on above: Performed By: #### Mery SINHA UMICRO #### [facility] [address] [place] [address] Dr. Sara Matos SPEC GRAVITY 1.015 Normal 1.005-<=1.025 [facility] Comment on above: Performed By: #### Mery SINHA UMICRO #### [facility] [address] [place] [address] Dr. Sara Matos UA PROTEIN Negative Normal NEGATIVE/ TRACE [facility] Comment on above: Performed By: #### KACY GODWINRO #### [facility] [address] [place] [address] Dr. Sara Matos UR MICRO IND INDICATED Normal [facility] Comment on above: Performed By: #### KACY GODWINRO #### [facility] [address] [place] [address] Dr. Sara Matos Urobilinogen Qn (U) 0.2 {Ana'U}/dL Normal 0.2 - 1. 0 [facility] Comment on above: Performed By: #### Mery SINHA UMICRO #### [facility] [address] [place] [address] Dr. Sara Matos URon 06-06-2022 , QUAL Negative Normal NEGATIVE [facility] Comment on above: Performed By: #### P REGU #### [facility] [address] [place] [address] Dr. Sara Matos URINE MICROSCOPIC ONLYon BACTERIA NONE SEEN Normal NONE SEEN [facility] Comment on above: Performed By: #### KACY GODWINRO #### [facility] [address] [place] [address] Dr. Sara Matos Bacteria identified Cx Nom (U) NOT INDICATED Normal [facility] Comment on above: Performed By: #### Mery SINHA UMICRO #### [facility] [address] [place] [address] Dr. Sara Matos CAST NONE SEEN Normal NONE SEEN [facility] Comment on above: Performed By: #### Mery SINHA UMICRO #### [facility] [address] [place] [address] Dr. Sara Matos Crystals LM Nom (Urine sed) NONE SEEN Normal NONE SEEN [facility] Comment on above: Performed By: #### Mery SINHA UMICRO #### [facility] [address] [place] [address] Dr. Sara Matos Epithelial cells LM Ql (Urine sed) FEW Abnormal NONE SEEN /RARE [facility] Comment on above: Performed By: #### Mery SINHA UMICRO #### [facility] [address] [place] [address] Dr. Sara Matos MUCOUS NONE SEEN Normal NONE SEEN [facility] Comment on above: Performed By: #### Mery SINHA UMICRO #### [facility] [address] [place] [address] Dr. Sara Matos RBC NONE SEEN Abnormal 0-2 [facility] Comment on above: Performed By: #### Mery SINHA UMICRO #### [facility] [address] [place] [address] Dr. Sara Matos WBC 0-2 Abnormal NONE SEEN [facility] Comment on above: Performed By: #### Mery SINHA UMICRO #### [facility] [address] [place] [address] Dr. Sara Matos WET PREPon 06-06-2022 CLUE CELLS NONE SEEN Normal NONE SEEN [facility] Comment on above: Performed By: #### T SH #### [facility] [address] [place] [address] Dr. Sara Matos FUNGAL ELEMENTS NONE SEEN Normal NONE SEEN [facility] Comment on above: Performed By: #### T SH #### [facility] [address] [address] [address] Sara Matos RBC -WET PREP NONE SEEN Normal NONE SEEN The [facility] Comment on above: Performed By: #### T SH #### [facility] [address] [address] [address] Sara Matos TRICHOMONAS NONE SEEN Normal NONE SEEN [facility] Comment on above: Performed By: #### T SH #### [facility] [address] [address] [address] Sara Matos WBC- WET PREP FEW Abnormal NONE SEEN The [facility] Comment on above: Performed By: #### T SH #### [facility] [address] [address] [address] Sara Matos WET PREP BACTERIA NONE SEEN Normal NONE SEEN The [facility] Comment on above: Performed By: #### T SH #### [facility] [address] [address] [address] Sara Matos Abstracton 04-25-2022 Abstract [id number] Astrid Montague 1995 F [facility] 04/25/2022 LILIAN AGUIRRE [facility] Family History Problem Relation Age of Onset Heart attack Maternal Grandmother Coronary artery disease Maternal Grandmother Family Status - Relation Status Age at Maternal Grandmother Paternal Grandmother Normal [facility] Abstracton 04-22-2022 Abstract [id number] Astrid Montague 1995 [facility] 04/22/[address] [facility] Family History Problem Relation Age of Onset Heart attack Paternal Grandmother Family Status - Relation Status Age at Paternal Grandmother Normal [facility] US GUY DOP LEG LTon 04-01-20 [...] LA O Date: 2022-04-01 17:05 Normal [facility] METANEPHRINES PLASMA FREEon 02-04-2022 Metanephrine, Pl 13.7 pg/mL Normal 0.0-88.0 [facility] Comment on above: Performed By: #### P URIEL DRUGRPD #### [facility] [address] [place] [address] Dr. Sara Matos Normetanephrine, Pl 45.6 pg/mL Normal 0.0-210.1 [facility] Comment on above: Performed By: #### P URIEL DRUGRPD #### [facility] [address] [place] [address] Dr. Sara Matos CARDIAC ANTONY ADMITon 022 CK [Catalytic activity/Vol] 67 U/L Normal 26-192 [facility] Comment on above: Performed By: #### T SH #### [facility] [address] [place] [address] Dr. Sara Matos CK.MB [Mass/Vol] 0.99 ng/mL Normal <=3.60 [facility] Comment on above: Performed By: #### T SH #### [facility] [address] [place] [address] Dr. Sara Matos HSTROP 4.7 pg/mL Normal 4.0-51.3 [facility] Comment on above: Result Comment: CUT- OFF POINTS HAVE BEEN ESTABLISHED BASED ON THE FOURTH UNIVERSAL DEFINITIONS OF MYOCARDIAL INFARCTION. THE UPPER REFERENCE LIMIT (URL) OF TROPONIN, DEFINED THE 99TH PERCENTILE OF cTnI DISTRIBUTION IN A REFERENCE POPULATION, HAS BEEN CONFIRMED THE DECISION THRESHOLD FOR NC DIAGNOSIS. Performed By: #### T SH #### [facility] [address] [place] [address] Dr. Sara Matos ELENA 34 ng/mL Normal 9-82 [facility] Comment on above: Performed By: #### T SH #### [facility] [address] [place] [address] Dr. Sara Matos CBC AUTO DIFFon 06-17-2022 BASO # 0.1 103/ul Normal 0.0-0.1 [facility] Comment on above: Performed By: #### T SH #### [facility] [address] [place] [address] Dr. Sara Matos Basophils/100 WBC (Bld) 0.8 % Normal 0.2-2.0 [facility] Comment on above: Performed By: #### T SH #### [facility] [address] [place] [address] Dr. Sara Matos EO # 0.1 103/ul Normal 0.0-0.7 [facility] Comment on above: Performed By: #### T SH #### [facility] [address] [place] [address] Dr. Sara Matos Eosinophils/100 WBC (Bld) 0.6 % Critically low 0.9-7.0 [facility] Comment on above: Performed By: #### T SH #### [facility] [address] [place] [address] Dr. Sara Matos Erythrocyte distribution width (RBC) [Ratio] 13.6 % Normal 11.0-15.0 [facility] Comment on above: Performed By: #### T SH #### [facility] [address] [place] [address] Dr. Sara Matos Hematocrit (Bld) [Volume fraction] 40.4 % Normal 36.0-48.0 [facility] Comment on above: Performed By: #### T SH #### [facility] [address] [place] [address] Dr. Sara Matos Hemoglobin (Bld) [Mass/Vol] 13.0 g/dL Normal 12.0-16.0 [facility] Comment on above: Performed By: #### T SH #### [facility] [address] [place] [address] Dr. Sara Matos IG # 0.03 10e3/ul Normal 0.00-0.03 [facility] Comment on above: Performed By: #### T SH #### [facility] [address] [place] [address] Dr. Sara Matos IG % 0.3 % Normal 0.0-0.5 [facility] Comment on above: Performed By: #### T SH #### [facility] [address] [place] [address] Dr. Sara Matos LYMPH # 2.6 103/ul Normal 1.2-3.8 [facility] Comment on above: Performed By: #### T SH #### [facility] [address] [place] [address] Dr. Sara Matos Lymphocytes/100 WBC (Bld) 26.5 % Normal 20.5-60.0 [facility] Comment on above: Performed By: #### T SH #### [facility] [address] [place] [address] Dr. Sara Matos MANUAL DIFF REQ NO Normal [facility] Comment on above: Performed By: #### T SH #### [facility] [address] [place] [address] Dr. Sara Matos MCH (RBC) [Entitic mass] 26.9 pg Normal 26.7-34.0 [facility] Comment on above: Performed By: #### T SH #### [facility] [address] [place] [address] Dr. Sara Matos MCHC (RBC) [Mass/Vol] 32.2 g/dL Normal 29.9-35.2 [facility] Comment on above: Performed By: #### T SH #### [facility] [address] [place] [address] Dr. Sara Matos MCV (RBC) [Entitic vol] 83.6 fL Normal 81.0-99.0 [facility] Comment on above: Performed By: #### T SH #### [facility] [address] [place] [address] Dr. Sara Matos MONO # 0.6 103/ul Normal 0.3-0.8 [facility] Comment on above: Performed By: #### T SH #### [facility] [address] [place] [address] Dr. Sara Matos Monocytes/100 WBC (Bld) 6.4 % Normal 1.7-12.0 [facility] Comment on above: Performed By: #### T SH #### [facility] [address] [place] [address] Dr. Sara Matos NEUT # 6.3 103/ul Normal 1.4-6.5 [facility] Comment on above: Performed By: #### T SH #### [facility] [address] [place] [address] Dr. Sara Matos Neutrophils/100 WBC (Bld) 65.4 % Normal 43.0-75.0 [facility] Comment on above: Performed By: #### T SH #### [facility] [address] [place] [address] Dr. Sara Matos Platelet mean volume (Bld) [Entitic vol] 11.8 fL Normal 9.5-13.5 [facility] Comment on above: Performed By: #### T SH #### [facility] [address] [place] [address] Dr. Sara Matos PLT 218 103/ul Normal 150-450 [facility] Comment on above: Performed By: #### T SH #### [facility] [address] [place] [address] Dr. Sara Matos RBC 4.83 106/ul Normal 4.20-5.40 [facility] Comment on above: Performed By: #### T SH #### [facility] [address] [place] [address] Dr. Sara Matos WBC 9.6 103/ul Normal 4.0-11.0 [facility] Comment on above: Performed By: #### T SH #### [facility] [address] [place] [address] Dr. Sara Matos ER URINE PROFILEon 2 Bilirubin Ql (U) Negative Normal NEGATIVE [facility] Comment on above: Performed By: #### JAIME GODWIN #### [facility] [address] [place] [address] Dr. Sara Matos Clarity (U) CLEAR Normal CLEAR [facility] Comment on above: Performed By: #### JAIME GODWIN #### [facility] [address] [place] [address] Dr. Sara Matos Color (U) LT. YELLOW Normal YELLOW [facility] Comment on above: Performed By: #### KACY GODWINRO #### [facility] [address] [place] [address] Dr. Sara BUCKNER A micrscopic examination will be performed if indicated. Normal [facility] Comment on above: Performed By: #### KACY GODWINRO #### [facility] [address] [place] [address] Dr. Sara Matos Glucose Ql (U) Negative Normal NEGATIVE The [facility] Comment on above: Performed By: #### KACY GODWINRO #### [facility] [address] [place] [address] Dr. Sara Matos Hemoglobin Ql (U) LARGE Abnormal NEGATIVE The [facility] Comment on above: Performed By: #### KACY GODWINRO #### [facility] [address] [place] [address] Dr. Sara Matos Ketones Ql (U) Negative Normal NEGATIVE [facility] Comment on above: Performed By: #### KACY GODWINRO #### [facility] [address] [place] [address] Dr. Sara Matos LEUKOCYTES Negative Normal NEGATIVE [facility] Comment on above: Performed By: #### KACY GODWINRO #### [facility] [address] [place] [address] Dr. Sara Matos Nitrite Ql (U) Negative Normal NEGATIVE [facility] Comment on above: Performed By: #### FLORENTINO GODWINICRO #### [facility] [address] [place] [address] Dr. Sara Matos pH (U) 6.0 [pH] Normal 5-9 [facility] Comment on above: Performed By: #### FLORENTINO GODWINICRO #### [facility] [address] [place] [address] Dr. Sara Matos SPEC GRAVITY <=1.005 Abnormal 1.005-<=1.025 [facility] Comment on above: Performed By: #### Mery SINHA UMICRO #### [facility] [address] [place] [address] Dr. Sara Matos UA PROTEIN Negative Normal NEGATIVE/ TRACE [facility] Comment on above: Performed By: #### E BHARATH UMICRO #### [facility] [address] [place] [address] Dr. Sara Matos UR MICRO IND INDICATED Normal [facility] Comment on above: Performed By: #### Mery SINHA UMICRO #### [facility] [address] [place] [address] Dr. Sara Matos Urobilinogen Qn (U) 0.2 {Ana'U}/dL Normal 0.2 - 1. 0 [facility] Comment on above: Performed By: #### KACY GODWINRO #### [facility] [address] [place] [address] Dr. Sara Matos PREG HCG QUALon 01-30-2022 , QUAL Negative Normal NEGATIVE [facility] Comment on above: Performed By: #### Mery SINHA ICRO #### [facility] [address] [place] [address] Dr. Sara Matos PROF 14(COMP METB)on 022 Albumin [Mass/Vol] 4.3 g/dL Normal 3.4-5.0 [facility] Comment on above: Performed By: #### T SH #### [facility] [address] [place] [address] Dr. Sara Matos Albumin/Globulin [Mass ratio] 1.2 {ratio} Normal [facility] Comment on above: Performed By: #### T SH #### [facility] [address] [place] [address] Dr. Sara Matos ALP [Catalytic activity/Vol] 63 U/L Normal 46-116 [facility] Comment on above: Performed By: #### T SH #### [facility] [address] [place] [address] Dr. Sara Matos ALT [Catalytic activity/Vol] 35 U/L Normal 14-59 [facility] Comment on above: Performed By: #### T SH #### [facility] [address] [address] [address] Sara Matos Anion gap [Moles/Vol] 9.7 mmol/L Normal [facility] Comment on above: Performed By: #### T SH #### [facility] [address] [address] [address] Sara Matos AST [Catalytic activity/Vol] 19 U/L Normal 15-37 [facility] Comment on above: Performed By: #### T SH #### [facility] [address] [address] [address] Sara Matos Bilirubin [Mass/Vol] 0.4 mg/dL Normal 0.2-1.0 [facility] Comment on above: Performed By: #### T SH #### [facility] [address] [address] [address] Sara Matos Calcium [Mass/Vol] 9.3 mg/dL Normal 8.5-10.1 [facility] Comment on above: Performed By: #### T SH #### [facility] [address] [address] [address] Sara Matos Chloride [Moles/Vol] 101 mmol/L Normal 98-107 [facility] Comment on above: Performed By: #### T SH #### [facility] [address] [address] [address] Sara Matos CO2 [Moles/Vol] 27.8 mmol/L Normal 21.0-32.0 [facility] Comment on above: Performed By: #### T SH #### [facility] [address] [address] [address] Sara Matos Creatinine [Mass/Vol] 0.78 mg/dL Normal 0.55-1.02 [facility] Comment on above: Performed By: #### T SH #### [facility] [address] [address] [address] Sara Matos EGFR-AF [place] >60 Normal >=60 [facility] Comment on above: Performed By: #### T SH #### [facility] [address] [place] [address] Dr. Sara Matos EGFR-NON AF [place] >60 Normal >=60 [facility] Comment on above: Performed By: #### T SH #### [facility] [address] [address] [address] Sara Matos Globulin (S) [Mass/Vol] 3.5 g/dL Normal [facility] Comment on above: Performed By: #### T SH #### [facility] [address] [address] [address] Sara Matos Glucose [Mass/Vol] 89 mg/dL Normal 74-106 [facility] Comment on above: Performed By: #### T SH #### [facility] [address] [place] [address] Dr. Sara Matos Potassium [Moles/Vol] 3.5 mmol/L Normal 3.5-5.1 [facility] Comment on above: Performed By: #### T SH #### [facility] [address] [place] [address] Dr. Sara Matos Protein [Mass/Vol] 7.8 g/dL Normal 6.4-8.2 [facility] Comment on above: Performed By: #### T SH #### [facility] [address] [place] [address] Dr. Sara Matos Sodium [Moles/Vol] 135 mmol/L Critically low 136-145 [facility] Comment on above: Performed By: #### T SH #### [facility] [address] [place] [address] Dr. Sara Matos Urea nitrogen [Mass/Vol] 6.0 mg/dL Critically low 7.0-18.0 [facility] Comment on above: Performed By: #### T SH #### [facility] [address] [place] [address] Dr. Sara Matos Urea nitrogen/Creatinine [Mass ratio] 7.7 mg/mg Normal [facility] Comment on above: Performed By: #### T SH #### [facility] [address] [place] [address] Dr. Sara Matos URINE MICROSCOPIC ONLYon BACTERIA NONE SEEN Normal NONE SEEN [facility] Comment on above: Performed By: #### Mery SINHA UMICRO #### [facility] [address] [place] [address] Dr. Sara Matos Bacteria identified Cx Nom (U) NOT INDICATED Normal [facility] Comment on above: Performed By: #### Mery SINHA UMICRO #### [facility] [address] [place] [address] Dr. Sara Matos CAST NONE SEEN Normal NONE SEEN [facility] Comment on above: Performed By: #### Mery SINHA UMICRO #### [facility] [address] [place] [address] Dr. Sara Matos Crystals LM Nom (Urine sed) NONE SEEN Normal NONE SEEN [facility] Comment on above: Performed By: #### Mery SINHA UMICRO #### [facility] [address] [place] [address] Dr. Sara Matos Epithelial cells LM Ql (Urine sed) RARE Normal NONE SEEN /RARE [facility] Comment on above: Performed By: #### Mery SINHA UMICRO #### [facility] [address] [place] [address] Dr. Sara Matos MUCOUS NONE SEEN Normal NONE SEEN [facility] Comment on above: Performed By: #### Mery SINHA UMICRO #### [facility] [address] [place] [address] Dr. Sara Matos RBC 0-2 Normal 0-2 [facility] Comment on above: Performed By: #### Mery SINHA UMICRO #### [facility] [address] [place] [address] Dr. Sara Matos WBC 0-2 Abnormal NONE SEEN [facility] Comment on above: Performed By: #### Mery SINHA UMICRO #### [facility] [address] [place] [address] Dr. Sara Matos CBC AUTO DIFFon 01-24-2022 BASO # 0.1 103/ul Normal 0.0-0.1 [facility] Comment on above: Performed By: #### JAIME GODWIN #### [facility] [address] [place] [address] Dr. Sara Matos Basophils/100 WBC (Bld) 0.5 % Normal 0.2-2.0 [facility] Comment on above: Performed By: #### JAIME GODWIN #### [facility] [address] [place] [address] Dr. Sara Matos EO # 0.0 103/ul Normal 0.0-0.7 [facility] Comment on above: Performed By: #### JAIME GODWIN #### [facility] [address] [place] [address] Dr. Sara Matos Eosinophils/100 WBC (Bld) 0.4 % Critically low 0.9-7.0 [facility] Comment on above: Performed By: #### JAIME GODWIN #### [facility] [address] [place] [address] Dr. Sara Matos Erythrocyte distribution width (RBC) [Ratio] 13.3 % Normal 11.0-15.0 [facility] Comment on above: Performed By: #### JAIME GODWIN #### [facility] [address] [place] [address] Dr. Sara Matos Hematocrit (Bld) [Volume fraction] 39.4 % Normal 36.0-48.0 [facility] Comment on above: Performed By: #### JAIME GODWIN #### [facility] [address] [place] [address] Dr. Sara Matos Hemoglobin (Bld) [Mass/Vol] 12.9 g/dL Normal 12.0-16.0 [facility] Comment on above: Performed By: #### JAIME GODWIN #### [facility] [address] [place] [address] Dr. Sara Matos IG # 0.03 10e3/ul Normal 0.00-0.03 [facility] Comment on above: Performed By: #### JAIME GODWIN #### [facility] [address] [address] [address] Sara Matos IG % 0.3 % Normal 0.0-0.5 [facility] Comment on above: Performed By: #### E BHARATH, UMICRO #### [facility] [address] [address] [address] Sara Matos LYMPH # 2.8 103/ul Normal 1.2-3.8 [facility] Comment on above: Performed By: #### E BHARATH, UMICRO #### [facility] [address] [place] [address] Dr. Sara Matos Lymphocytes/100 WBC (Bld) 25.3 % Normal 20.5-60.0 [facility] Comment on above: Performed By: #### E BHARATH UMICRO #### [facility] [address] [place] [address] Dr. Sara Matos MANUAL DIFF REQ NO Normal [facility] Comment on above: Performed By: #### Mery SINHA UMICRO #### [facility] [address] [place] [address] Dr. Sara Matos MCH (RBC) [Entitic mass] 26.5 pg Critically low 26.7-34.0 [facility] Comment on above: Performed By: #### E BHARATH, UMICRO #### [facility] [address] [place] [address] Dr. Sara Matos MCHC (RBC) [Mass/Vol] 32.7 g/dL Normal 29.9-35.2 [facility] Comment on above: Performed By: #### Mery SINHA, UMICRO #### [facility] [address] [place] [address] Dr. Sara Matos MCV (RBC) [Entitic vol] 80.9 fL Critically low 81.0-99.0 [facility] Comment on above: Performed By: #### E BHARATH, UMICRO #### [facility] [address] [place] [address] Dr. Sara Matos MONO # 0.8 103/ul Normal 0.3-0.8 [facility] Comment on above: Performed By: #### JAIME GODWIN #### [facility] [address] [place] [address] Dr. Sara Matos Monocytes/100 WBC (Bld) 6.8 % Normal 1.7-12.0 [facility] Comment on above: Performed By: #### JAIME GODWIN #### [facility] [address] [place] [address] Dr. Sara Matos NEUT # 7.4 103/ul Critically high 1.4-6.5 [facility] Comment on above: Performed By: #### JAIME GODWIN #### [facility] [address] [place] [address] Dr. Sara Matos Neutrophils/100 WBC (Bld) 66.7 % Normal 43.0-75.0 [facility] Comment on above: Performed By: #### JAIME GODWIN #### [facility] [address] [place] [address] Dr. Sara Matos Platelet mean volume (Bld) [Entitic vol] 11.3 fL Normal 9.5-13.5 [facility] Comment on above: Performed By: #### JAIME GODWIN #### [facility] [address] [place] [place] [address] Dr. Sara Matos PLT 281 103/ul Normal 150-450 [facility] Comment on above: Performed By: #### KACY GODWINRO #### [facility] [address] [place] [address] Dr. Sara Matos RBC 4.87 106/ul Normal 4.20-5.40 [facility] Comment on above: Performed By: #### KACY GODWINRO #### [facility] [address] [place] [address] Dr. Sara Matos WBC 11.1 103/ul Critically high 4.0-11.0 [facility] Comment on above: Performed By: #### KACY GODWINRO #### [facility] [address] [place] [address] Dr. Sara Matos MAGNESIUMon 01-24-2022 Magnesium [Mass/Vol] 2.0 mg/dL Normal 1.8-2.4 [facility] Comment on above: Performed By: #### E JAIME SINHA #### [facility] [address] [place] [address] Dr. Sara Matos T3 UPTAKEon 01-24-2022 T3U 37.0 % Normal 30.0-39.0 [facility] Comment on above: Performed By: #### T 3UP #### [facility] [address] [place] [address] Dr. Sara Matos T4on 01-24-2022 T4 [Mass/Vol] 11.60 ug/dL Normal 4.80-13.90 [facility] Comment on above: Performed By: #### T 4 #### [facility] [address] [place] [address] Dr. Sara Matos TSHon 01-24-2022 TSH 0.547 uIU/mL Normal 0.358-3.740 [facility] Comment on above: Performed By: #### T SH #### [facility] [address] [place] [address] Dr. Sara Matos TSH RANGE SEE BELOW Normal [facility] Comment on above: Result Comment: <0.3 4 UIU/ml HYPERTHYROID 0.34-5.60 UIU/ml EUTHYROID >5.60 UIU/ml HYPOTHYROID Performed By: #### T SH #### [facility] [address] [place] [address] Dr. Sara Matos CBC AUTO DIFFon 01-19-2022 BASO # 0.0 103/ul Normal 0.0-0.1 [facility] Comment on above: Performed By: #### T SH #### [facility] [address] [place] [address] Dr. Sara Matos Basophils/100 WBC (Bld) 0.5 % Normal 0.2-2.0 [facility] Comment on above: Performed By: #### T SH #### [facility] [address] [place] [address] Dr. Sara Matos EO # 0.1 103/ul Normal 0.0-0.7 [facility] Comment on above: Performed By: #### T SH #### [facility] [address] [place] [address] Dr. Sara Matos Eosinophils/100 WBC (Bld) 1.1 % Normal 0.9-7.0 [facility] Comment on above: Performed By: #### T SH #### [facility] [address] [place] [address] Dr. Sara Matos Erythrocyte distribution width (RBC) [Ratio] 13.6 % Normal 11.0-15.0 [facility] Comment on above: Performed By: #### T SH #### [facility] [address] [place] [address] Dr. Sara Matos Hematocrit (Bld) [Volume fraction] 38.4 % Normal 36.0-48.0 [facility] Comment on above: Performed By: #### T SH #### [facility] [address] [place] [address] Dr. Sara Matos Hemoglobin (Bld) [Mass/Vol] 12.5 g/dL Normal 12.0-16.0 [facility] Comment on above: Performed By: #### T SH #### [facility] [address] [place] [address] Dr. Sara Matos IG # 0.02 10e3/ul Normal 0.00-0.03 [facility] Comment on above: Performed By: #### T SH #### [facility] [address] [place] [address] Dr. Sara Matos IG % 0.2 % Normal 0.0-0.5 [facility] Comment on above: Performed By: #### T SH #### [facility] [address] [place] [address] Dr. Sara Matos LYMPH # 2.5 103/ul Normal 1.2-3.8 [facility] Comment on above: Performed By: #### T SH #### [facility] [address] [place] [address] Dr. Sara Matos Lymphocytes/100 WBC (Bld) 28.9 % Normal 20.5-60.0 [facility] Comment on above: Performed By: #### T SH #### [facility] [address] [place] [address] Dr. Sara Matos MANUAL DIFF REQ NO Normal [facility] Comment on above: Performed By: #### T SH #### [facility] [address] [place] [address] Dr. Sara Matos MCH (RBC) [Entitic mass] 26.9 pg Normal 26.7-34.0 [facility] Comment on above: Performed By: #### T SH #### [facility] [address] [place] [address] Dr. Sara Matos MCHC (RBC) [Mass/Vol] 32.6 g/dL Normal 29.9-35.2 [facility] Comment on above: Performed By: #### T SH #### [facility] [address] [place] [address] Dr. Sara Matos MCV (RBC) [Entitic vol] 82.6 fL Normal 81.0-99.0 [facility] Comment on above: Performed By: #### T SH #### [facility] [address] [place] [address] Dr. Sara Matos MONO # 0.7 103/ul Normal 0.3-0.8 [facility] Comment on above: Performed By: #### T SH #### [facility] [address] [place] [address] Dr. Sara Matos Monocytes/100 WBC (Bld) 7.5 % Normal 1.7-12.0 [facility] Comment on above: Performed By: #### T SH #### [facility] [address] [place] [address] Dr. Sara Matos NEUT # 5.4 103/ul Normal 1.4-6.5 [facility] Comment on above: Performed By: #### T SH #### [facility] [address] [place] [address] Dr. Sara Matos Neutrophils/100 WBC (Bld) 61.8 % Normal 43.0-75.0 [facility] Comment on above: Performed By: #### T SH #### [facility] [address] [place] [address] Dr. Sara Matos Platelet mean volume (Bld) [Entitic vol] 11.4 fL Normal 9.5-13.5 [facility] Comment on above: Performed By: #### T SH #### [facility] [address] [place] [address] Dr. Sara Matos PLT 233 103/ul Normal 150-450 [facility] Comment on above: Performed By: #### T SH #### [facility] [address] [place] [address] Dr. Sara Matos RBC 4.65 106/ul Normal 4.20-5.40 [facility] Comment on above: Performed By: #### T SH #### [facility] [address] [place] [address] Dr. Sara Matos WBC 8.8 103/ul Normal 4.0-11.0 [facility] Comment on above: Performed By: #### T SH #### [facility] [address] [place] [address] Dr. Sara Matos PROF 14(COMP METB)on 022 Albumin [Mass/Vol] 3.8 g/dL Normal 3.4-5.0 [facility] Comment on above: Performed By: #### JAIME GODWIN #### [facility] [address] [place] [address] Dr. Sara Matos Albumin/Globulin [Mass ratio] 1.0 {ratio} Normal [facility] Comment on above: Performed By: #### JAIME GODWIN #### [facility] [address] [place] [address] Dr. Sara Matos ALP [Catalytic activity/Vol] 65 U/L Normal 46-116 [facility] Comment on above: Performed By: #### JAIME GODWIN #### [facility] [address] [place] [address] Dr. Sara Matos ALT [Catalytic activity/Vol] 52 U/L Normal 14-59 [facility] Comment on above: Performed By: #### JAIME GODWIN #### [facility] [address] [place] [address] Dr. Sara Matos Anion gap [Moles/Vol] 12.0 mmol/L Normal [facility] Comment on above: Performed By: #### JAIME GODWIN #### [facility] [address] [place] [address] Dr. Sara Matos AST [Catalytic activity/Vol] 28 U/L Normal 15-37 [facility] Comment on above: Performed By: #### JAIME GODWIN #### [facility] [address] [place] [address] Dr. Sara Matos Bilirubin [Mass/Vol] 0.4 mg/dL Normal 0.2-1.0 [facility] Comment on above: Performed By: #### JAIME GODWIN #### [facility] [address] [place] [address] Dr. Sara Matos Calcium [Mass/Vol] 9.5 mg/dL Normal 8.5-10.1 [facility] Comment on above: Performed By: #### JAIME GODWIN #### [facility] [address] [place] [address] Dr. Sara Matos Chloride [Moles/Vol] 103 mmol/L Normal 98-107 [facility] Comment on above: Performed By: #### JAIME GODWIN #### [facility] [address] [place] [address] Dr. Sara Matos CO2 [Moles/Vol] 26.7 mmol/L Normal 21.0-32.0 [facility] Comment on above: Performed By: #### JAIME GODWIN #### [facility] [address] [place] [address] Dr. Sara Matos Creatinine [Mass/Vol] 0.69 mg/dL Normal 0.55-1.02 [facility] Comment on above: Performed By: #### JAIME GODWIN #### [facility] [address] [address] [address] Sara Matos EGFR-AF [place] >60 Normal >=60 [facility] Comment on above: Performed By: #### Mery SINHA UMICRO #### [facility] [address] [address] [address] Sara Matos EGFR-NON AF [place] >60 Normal >=60 [facility] Comment on above: Performed By: #### KACY GODWINRO #### [facility] [address] [address] [address] Sara Matos Globulin (S) [Mass/Vol] 3.9 g/dL Normal [facility] Comment on above: Performed By: #### Mery SINHA UMICRO #### [facility] [address] [place] [address] Dr. Sara Matos Glucose [Mass/Vol] 84 mg/dL Normal 74-106 [facility] Comment on above: Performed By: #### Mery SINHA UMICRO #### [facility] [address] [address] [address] Sara Matos Potassium [Moles/Vol] 3.7 mmol/L Normal 3.5-5.1 [facility] Comment on above: Performed By: #### Mery SINHA UMICRO #### [facility] [address] [place] [address] Dr. Sara Matos Protein [Mass/Vol] 7.7 g/dL Normal 6.4-8.2 [facility] Comment on above: Performed By: #### Mery SINHA UMICRO #### [facility] [address] [address] [address] Sara Matos Sodium [Moles/Vol] 138 mmol/L Normal 136-145 [facility] Comment on above: Performed By: #### Mery SINHA UMICRO #### [facility] [address] [address] [address] Sara Matos Urea nitrogen [Mass/Vol] 8.0 mg/dL Normal 7.0-18.0 [facility] Comment on above: Performed By: #### E JAIME SINHA #### [facility] [address] [address] [address] Sara Matos Urea nitrogen/Creatinine [Mass ratio] 11.6 mg/mg Normal [facility] Comment on above: Performed By: #### E JAIME SINHA #### [facility] [address] [address] [address] Sara Matos TROPONIN, HIGH SENSITIVITYon 01-19-2022 HSTROP <4.0 Normal 4.0-51.3 [facility] Comment on above: Result Comment: CUT- OFF POINTS HAVE BEEN ESTABLISHED BASED ON THE FOURTH UNIVERSAL DEFINITIONS OF MYOCARDIAL INFARCTION. THE UPPER REFERENCE LIMIT (URL) OF TROPONIN, DEFINED THE 99TH PERCENTILE OF cTnI DISTRIBUTION IN A REFERENCE POPULATION, HAS BEEN CONFIRMED THE DECISION THRESHOLD FOR NC DIAGNOSIS. Performed By: #### JAIME GODWIN #### [facility] [address] [address] [address] Sara Matos XR CHEST 1 Von [...] by: DUSTY BUSCH Date: 2022-01-19 21:50 Normal [facility] US GUY DOP LEG LTon 12-26-19 22 [...] O Date: 2021-12-25 12:20 Normal [facility] XR CHEST 1 Von 12-25-2021 [...] GUERRA Date: 2021-12-25 11:45 Normal [facility] U24 Proteinon 09-04-2017 PROTEIN:MCNC:24H:UR INE:QN: 102 mg/24hr Normal 28-141 [facility] Comment on above: Performed By: #### 2 [id number] ####[facility] [address] [place] [address] ALBUMIN/PROTEIN.TOT AL:MFR:PT:URINE:QN: ELECTROPHORESIS 8.0 mg/dL Invalid Interpretation Code [facility] Comment on above: Result Comment: The reference range and other method performance specifications have not been established for this test; results should be integrated into the clinical context for interpretation. Performed By: #### 2 [id number], [id number] ####[facility] [address] [place] [address] U24 Total Volon 09-04-2017 Hrs Glenna 24 hour(s) Invalid Interpretation Code [facility] Comment on above: Order Comment: Order added by Discern Expert Performed By: #### 2 [id number], [id number] ####[facility] [address] [place] [address] SPECIMEN VOLUME:VOL:XXX:URIN E:QN: 1280 mL Invalid Interpretation Code [facility] Comment on above: Order Comment: Order added by Discern Expert Performed By: #### 2 [id number], [id number] ####[facility] [address] [place] [address] Vital Signs Date Time Vital Sign Value Performing Clinician Yani frye 07-18-2024 11:15-0500 Body mass index (BMI) [Ratio] 46.93 kg/m2 Isabela HENNESSY Work Phone: [facility] 07-18-2024 11:15-0500 Body weight 124.01 kg Isabela HENNESSY Work Phone: [facility] 07-18-2024 11:15-0500 Diastolic blood pressure 80 mm[Hg] Isabela HENNESSY Work Phone: [facility] 07-18-2024 11:15-0500 Systolic blood pressure 120 mm[Hg] Isabela HENNESSY Work Phone: [facility] 06-27-2024 10:38-0500 Body mass index (BMI) [Ratio] 47.1 kg/m2 Jonas Jose DO Work Phone: [facility] 06-27-2024 10:38-0500 Body weight 124.47 kg Jonas Jose DO Work Phone: [facility] 06-27-2024 10:38-0500 Diastolic blood pressure 72 mm[Hg] Jonas Jose DO Work Phone: [facility] 06-27-2024 10:38-0500 Systolic blood pressure 118 mm[Hg] Jonas Jose DO Work Phone: [facility] Healthcare Encounters Encounter Date Encounter Type Care Provider Facility Start: 07-18-2024 End: 07-18-2024 Bamboo flowsheet Isabela HENNESSY Work Phone: [facility] Start: 07-18-2024 End: 07-18-2024 Bamboo flowsheet Isabela HENNESSY Work Phone: [facility] Start: 07-18-2024 End: 07-18-2024 Office outpatient visit 15 minutes Isabela HENNESSY Work Phone: [facility] Comment on above: 35 weeks gestation o f ; Third trimester ; 32 weeks gestation of ; JE (amniotic fluid index) borderline low Start: 06-27-2024 End: 06-27-2024 Bamboo flowsheet Jonas Jose DO Work Phone: [facility] Start: 06-27-2024 End: 06-27-2024 Bamboo flowsheet Jonas Jose DO Work Phone: [facility] Start: 06-27-2024 End: 06-27-2024 Office outpatient visit 15 minutes Jonas Jose DO Work Phone: [facility] Comment on above: Third trimester preg kat; 32 weeks gestation of ; Excessive growth affecting management of , antepartum, single or unspecified fetus Start: 06-27-2024 End: 06-27-2024 ambulatory JONAS GARCIA Not Available Start: 05-15-2024 End: 05-15-2024 ambulatory ISABELA PALMER Not Available Start: 04-11-2024 End: 04-11-2024 ambulatory JONAS GARCIA Not Available Start: 03-09-2024 End: 03-09-2024 ambulatory JONAS JOSE Not Available Start: 12-10-2022 End: 12-11-2022 ambulatory [...] Start: 09-04-2017 End: 09-05-2017 Ambulatory Jonah York Facility:[facility] Procedures Date Procedure Procedure Detail Performing Clinician Start: 07-18-2024 Urnls dip stick/tabl et rgnt non-auto w/o micrscp Isabela HENNESSY Work Phone: Plan of Treatment Date Care Activity Detail Author Start: 07-26-2024 End: 07-26-2024 Patient encounter procedure 07/26/2024 2:50 PM EST Routine [facility] [address] [place] [address] Isablea Palmer PA [address] [place] [address] [facility] Start: 07-18-2024 End: 07-18-2025 Strep B DNA probe, amplification Strep B DNA probe, amplification Lab Routine Third trimester Expected: 07/18/2024 (Approximate), Expires: 07/18/2025 [facility] Work Phone: Comment on above: Expected: 07/18/2024 (Approximate), Expires: 07/18/2025 Start: 07-18-2024 End: 07-18-2025 US for US OB AMNIOTIC FLUID VOLUME Imaging Routine JE (amniotic fluid index) borderline low Expected: 07/18/2024 (Approximate), Expires: 07/18/2025 [facility] Comment on above: Expected: 07/18/2024 (Approximate), Expires: 07/18/2025 Start: 07-18-2024 End: 07-18-2024 Patient encounter procedure 07/18/2024 11:10 AM EST Routine [facility] [address] [place] [address] Isabela Palmer PA [address] [place], [place] [id number] Arrived [facility] Comment on above: Arrived Start: 07-11-2024 End: 07-11-2024 Patient encounter procedure 07/11/2024 10:10 AM EST Routine [facility] [address] [place] [address] Isabela Palmer PA [address] [place] [address] [facility] Start: 07-11-2024 End: 07-11-2024 Professional / ancillary services management 07/11/2024 9:30 AM EST Ancillary Procedure [facility] [address] [place] [address] [facility] Start: 06-27-2024 End: 06-27-2025 US for US OB SCAN FOR GROWTH Imaging Routine Excessive growth affecting management of , antepartum, single or unspecified fetus Expected: 06/27/2024 (Approximate), Expires: 06/27/2025 [facility] Work Phone: Comment on above: Expected: 06/27/2024 (Approximate), Expires: 06/27/2025 Start: 04-16-2024 Influenza vaccination Influenza Vacc ine (#1) [facility] Hemoglobin A1c/Hemoglobin.total in Blood Hemoglobin A1c Lab Routine 35 weeks gestation of Third trimester 32 weeks gestation of Ordered: 07/18/2024 [facility] Comment on above: Ordered: 07/18/2024 Payers Date Payer Category Payer Medicaid (Managed Care) [facility]ICA[facility] [id number] 1995 Unknown [id number] 2.16.840.1.235401.3.579.2. 593 1995 Unknown [id number] 2.16.840.1.718173.3.579.2. 593 1995 Unknown [id number] 2.16.840.1.667755.3.579.2. 593 1995 Unknown [id number] 2.16.840.1.813857.3.579.2. 593 1995 Unknown [id number] 2.16.840.1.601277.3.579.2. 593 1995 Unknown [id number] 2.16.840.1.821642.3.579.2. 593 1995 Unknown [id number] 2.16.840.1.626245.3.579.2. 593 1995 Unknown [id number] 2.16.840.1.978175.3.579.2. 593 1995 Unknown [id number] 2.16.840.1.783199.3.579.2. 593 1995 Unknown [id number] 2.16.840.1.681384.3.579.2. 593 1995 Unknown [id number] 2.16.840.1.868254.3.579.2. 593 1995 Unknown [id number] 2.16.840.1.799885.3.579.2. 593 1995 Unknown [id number] 2.16.840.1.820600.3.579.2. 593 1995 Unknown [id number] 2.16.840.1.474831.3.579.2. 593 1995 Unknown [id number] 2.16.840.1.273154.3.579.2. 593 1995 Unknown [id number] 2.16.840.1.179433.3.579.2. 1259 1995 Unknown [id number] 2.16.840.1.225832.3.579.2. 1259 1995 Unknown [id number] 2.16.840.1.408247.3.579.2. 1259 1995 Unknown [id number] 2.16.840.1.372083.3.579.2. 1259 1959 Self-pay [id number] 1959 Unknown [id number] Social History Date Type Detail Facility Start: [...] health goal History of Present illness Narrative 07-18-2024 MINOO Ramos - 07/18/2024 11:10 AM EST Note Date & Type Note Facility 07-18-2024 History of Presen t illness Narrative Reason for Appointment: Patient ID: Astrid Montague is a 28 y.o. female who presents for Routine Visit Patient presents today for Return OB appointment. MEDICATIONS Current Outpatient Medications Medication Instructions amoxicillin (AMOXIL) 875 mg, 2 times daily boazwwvvabhmh-IU-ZJVM (Tylenol Cold Multi-Symptom) 5-10-325 mg/15 mL liquid 15 mL, Every 4 hours PRN ALLERGIES Allergies Allergen [...] Hypertension Mother Cancer Sister NET SURGICAL HISTORY History reviewed. No pertinent surgical history. REVIEW OF SYSTEMS Review of Systems: Review of Systems Constitutional: Negative. HENT: Negative. Eyes: Negative. Respiratory: Negative. Cardiovascular: Negative. Gastrointestinal: Negative. Genitourinary: Negative. Musculoskeletal: Negative. Skin: Negative. Neurological: Negative. All other systems reviewed and are negative. Hematological: Negative. Endocrine: Negative. Allergic/Immunologic: Negative. OBJECTIVE Objective: Physical Exam Constitutional: Appearance: Normal appearance. She is normal weight. HENT: Head: Normocephalic. Cardiovascular: Rate and Rhythm: Normal rate. Pulses: Normal pulses. Pulmonary: Effort: Pulmonary effort is normal. Breath sounds: Normal breath sounds. Abdominal: Palpations: Abdomen is soft. Musculoskeletal: General: Normal range of motion. Neurological: General: No focal deficit present. Mental Status: She is alert and oriented to person, place, and time. Psychiatric: Mood and Affect: Mood normal. Behavior: Behavior normal. Thought Content: Thought content normal. Judgment: Judgment normal. Vitals and nursing note reviewed. Vitals: Estimated body mass index is 46.93 kg/m as calculated from the following: Height as of 12/02/22: 5' 4 . Weight as of this encounter: 273 lb 6.4 oz. BP: 120/80 Patient's last menstrual period was 11/11/2023. ASSESSMENT & PLAN ICD-10-CM 1. 35 weeks gestation of Z3A.35 POCT urinalysis dipstick manually resulted Hemoglobin A1c 2. Third trimester Z34.93 POCT urinalysis dipstick manually resulted Strep B DNA probe, amplification Strep B DNA probe, amplification Hemoglobin A1c 3. 32 weeks gestation of Z3A.32 Hemoglobin A1c 4. JE (amniotic fluid index) borderline low O28.8 US OB AMNIOTIC FLUID VOLUME Patient is doing well but has complaints of being tired and having maternal discomfort due to . Patient verbalized frequent movement and was instructed to perform kick counts three times per day. labor precautions were given, LARC consent was signed/declined, and GBS was obtained. Cervical check was performed and patient is 0cm dilated. Patient given order to have Repeat JE done due to lower fluid level. Orders Placed This Encounter Procedures US OB AMNIOTIC FLUID VOLUME Strep B DNA probe, amplification Hemoglobin A1c POCT urinalysis dipstick manually resulted Follow Up: Patient is to return to office in 1 week for routine OB appointment Documented by Deepika Lopez LPN on behalf of: MINOO Ramos documented in this encounter [facility] History of Present illness Narrative 06-27-2024 Mary Hoffman LPN - 06/27/2024 10:30 AM EST Note Date & Type Note Facility 06-27-2024 History of Presen t illness Narrative Reason for Appointment: Patient ID: Astrid Montague is a 28 y.o. female who presents for Routine Visit Patient presents today for Return OB appointment. MEDICATIONS Current Outpatient Medications Medication Instructions fozbbhtrurbuv-PJ-EWFG (Tylenol Cold Multi-Symptom) 5-10-325 mg/15 mL liquid [...] nursing note reviewed. Exam conducted with a trouble clerk present. Vitals: Estimated body mass index is [...] Jonas Garcia DO documented in this encounter [facility] Evaluation note Note Date & Type Note Facility Evaluation note Diagnosis Third trimester state, incidental 32 weeks gestation of Excessive growth affecting management of , antepartum, single or unspecified fetus documented in this encounter [facility] Evaluation note Note Date & Type Note Facility Evaluation note Diagnosis 35 weeks gestation of Third trimester state, incidental 32 weeks gestation of JE (amniotic fluid index) borderline low Nonspecific abnormal finding in amniotic fluid documented in this encounter [facility] Summary Purpose Family History No Family History Records FoundNo Family History Records FoundNo Family History Records FoundNo Family History Records Found Advance Directives No Advanced Directives Records FoundNo Advanced Directives Records FoundNo Advanced Directives Records FoundNo Advanced Directives Records Found Additional Source Comments INFORMATION SOURCE (unrecogn ized section and content) DATE CREATED AUTHOR 02/04/2018 [facility] DATE CREATED AUTHOR AUTHOR'S ORGANIZ ATION 04/25/2022 [facility] DATE CREATED AUTHOR AUTHOR'S ORGANIZ ATION 12/13/2022 [facility] DATE CREATED AUTHOR AUTHOR'S ORGANIZ ATION 06/29/2024 [facility] EPIC Reason for Visit (unrecogniz [...] BE BASED ON THE PRIMARY CLINICAL RECORDS. [employer] provides no warranty or guarantee of the accuracy or completeness of information in this document.
== END 2024-07-18 19:55 | disposition home or self-care (01) ==
LOC: LAB 19:54
PROVIDERS: PCP Nurse Practitioner Family; Visit Provider Physician Assistant
DX: Z34.93 Encounter for supervision of normal pregnancy, unspecified, third trimester (principal)
CPT/HCPCS: 87081; 87150

== ENCOUNTER 2024-07-22 11:34 | Outpatient (OUT) | payer OTHER, SELFPAY ==
[2024-07-22 12:43] LABS: Estimated Average Glucose 111 mg/dL; Glycohemoglobin A1C 5.5 % (4.5-6.2)
== END 2024-07-22 11:35 | disposition home or self-care (01) ==
PROVIDERS: PCP Nurse Practitioner Family; Visit Provider Physician Assistant
DX: Z34.93 Encounter for supervision of normal pregnancy, unspecified, third trimester (principal); Z3A.35 35 weeks gestation of pregnancy
CPT/HCPCS: 36415; 83036

== ENCOUNTER 2024-07-29 14:52 | Outpatient (OUT) | payer OTHER, SELFPAY ==
--- NOTE | 2024-07-29 | US_ITS ---
[address] [address] Patient Name: MICHAEL BRAXTON MRN: [facility]:[id number] date: 1995 Sex: F Assigned Patient Location: [place] Current Patient Location: Accession/Order Number: [id number] Exam Date: 07/29/2024 14:59 Report Date: 07/31/2024 07:58 At the request of: JERSEY PALMER Procedure: US OB amniotic fluid vol EXAMINATION: US OB amniotic fluid vol HISTORY: JE BORDERLINE LOW O28.8 COMPARISON: No relevant comparison available. FINDINGS: position: Cephalic presentation, longitudinal lie Amniotic fluid volume: 9.6 cm, largest fluid pocket 4 cm. Heart rate: 130 bpm Clinical age: 37 weeks 2 days Clinical NATALIA: 08/17/2024 US/US OB amniotic fluid vol IMPRESSION: Amniotic fluid index above the 5th percentile Electronically authenticated by: PREM GUERRA Date: 07/31/2024 07:58
--- OUTSIDE RECORDS SUMMARY | 2024-07-29 14:54 | XMS_ITS | CCD ---
Author Organization [facility] Care Team Providers Care Manager Ship Name Role Phone Jonah York Unavailable Unavailable [...] Attending Unavailable CHELE, [facility]ANNING Primary Care Unavailable SWEETIE LYMAN Admitting Unavailable SWEETIE LYMAN Attending Unavailable KARASIK ., DR SEAY Consulting Unavailabl e KARASIK ., DR SEAY Attending Unavailabl e KARASIK ., DR SEAY Admitting Unavailabl e CHELE, [facility] Unavailable KARASIK ., DR SEAY Consulting Unavailabl e KARASIK ., DR SEAY Attending Unavailabl e KARASIK ., DR SEAY Admitting Unavailabl e CHELE, [facility] Unavailable KARASIK ., DR SEAY Attending Unavailabl e KARASIK ., DR SEAY Admitting Unavailabl e CHELE, [facility] Unavailable KARASIK ., DR SEAY Consulting Unavailabl e JAYLYN, DR CHARLIE Aguero Consulting Unavailable CHELE, [facility] Unavailable KENTRELL, DR WANDY Silva Attending Unavailabl e KENTRELL, DR WANDY Silva Admitting Unavailabl sha PFEIFFER, DR WANDY Silva Consulting Unavailadi e LEAHY ., MR GUERRERO Consulting Unavailable [facility] Primary Care Provider UnavailJONAS Johnson Attending Unavailable ISABELA PALMER Attending JONAS Olivier Attending ISABELA Deng Attending Unavailable Allergies Allergy Classification Reported Allergen(s) Allergy Type Date of Onset Reaction(s) Facility (2 sources) Escitalopram Drug Allergy 11-12-2021 [facility] Repository (7 sources) Escitalopram Drug Allergy 11-28-2021 Headache [facility] Work Phone: Medications Current Medications Medication Drug Class(es) Dates Sig (Normalized) Sig (Original) acetaminophen 21.7 mg/ml / dextromethorphan hydrobromide 0.667 mg/ml / phenylephrine hydrochloride 0.333 mg/ml oral solution (7 sources) Uncompetitive J-hodhdx-J-aspartat e Receptor Antagonist, Sigma-1 Agonist, alpha-1 Adrenergic Agonist take 15 mL by mouth every four hours as needed for congestion phenylephrine-DM -APAP (Tylenol Cold Multi-Symptom) 5-10-325 mg/15 mL liquid Take 15 mL by mouth every 4 (four) hours if needed for congestion Active amoxicillin 875 mg oral tablet (3 sources) Penicillin-class Antibacterial Start: 07-17-2024 take 1 [...] UNSPECIFIED; Translations: [COUGH, UNSPECIFIED] Onset: 12-26-2021 Unclassified (7 sources) OB Reminders Onset: 04-11-2024 04-11-2024 Past or Other Problems Problem Classification Problem Date Documented Date Episodic/Chronic Cardiac dysrhythmias (4 sources) Bradycardia, unspecified; Translations: [BRADYCARDIA UNSPECIFIED] Onset: 02-25-2022 Episodic Genitourinary symptoms and ill-defined conditions (4 sources) Dysuria; Translations: [DYSURIA] Onset: 06-06-2022 Episodic Other aftercare (1 source) 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; Translations: [OTH COMPLAINT COORDINATOR CURRENT DRUG THERAPY] Onset: 01-26-2022 Episodic Other aftercare (1 source) detention (current) use of anticoagulants; Translations: [COMPLAINT COORDINATOR CURRNT USE ANTICOAGULANTS] Onset: 12-26-2021 Episodic Other [...] Test Name Value Interpretation Reference Range Facility MLR HEMOGLOBIN A1Con 024 Glucose [Mass/Vol] 111 mg/dL [facility] HbA1c (Bld) [Mass fraction] 5.5 % 4.5 - 6.2 % [facility] Comment on above: ADA RECOMMENDED LIMI T 4.0 - 6.0 ADA THERAPEUTIC TARGET < 7.0 ACTION SUGGESTED > 7.0 [facility] Urinalysis macro (dipstick) panel (U)on 07-18-2024 Bilirubin, UA Negative Negative - 4(70) +++ mg/dL [facility] Blood, UA Negative Negative - 50 Shahbaz/mcL [facility] Clarity, UA Clear [facility] Color, UA Yellow [facility] Glucose, UA Negative Negative - 2000(110) ++++ mg/dL [facility] Interpretation and review of laboratory results Abnormal [facility] Ketones, UA Negative Negative - 160(16) ++++ mg/dL [facility] Leukocytes, UA Trace Negative - 500+++ Edward/mcL [facility] Nitrite, UA Negative Negative - Positive [facility] pH, UA 7 5 - 9 [facility] Protein, UA Negative Negative - 2000(20) ++++ mg/dL [facility] Spec Grav, UA 1.015 1 - 1.03 [facility] Urobilinogen, UA 0.2 0.2 - 12 mg/dL [facility] GLUCOSE - 1HRon 12-10-2022 Glucose [Mass/Vol] 98 mg/dL Normal 74-106 [facility] Comment on above: Performed By: #### G LU1 #### [facility] [address] [place] [address] Dr. Sara Matos HEMOGRAM AND PLATELon 2022 Hematocrit (Bld) [Volume fraction] 33.8 % Critically low 36.0-48.0 [facility] Comment on above: Performed By: #### T SH #### [facility] [address] [place] [address] Dr. Sara Matos Hemoglobin (Bld) [Mass/Vol] 11.1 g/dL Critically low 12.0-16.0 [facility] Comment on above: Performed By: #### T SH #### [facility] [address] [place] [address] Dr. Sara Matos MCH (RBC) [Entitic mass] 28.6 pg Normal 26.7-34.0 [facility] Comment on above: Performed By: #### T SH #### [facility] [address] [place] [address] Dr. Sara Matos MCHC (RBC) [Mass/Vol] 32.8 g/dL Normal 29.9-35.2 [facility] Comment on above: Performed By: #### T SH #### [facility] [address] [place] [address] Dr. Sara Matos MCV (RBC) [Entitic vol] 87.1 fL Normal 81.0-99.0 [facility] Comment on above: Performed By: #### T SH #### [facility] [address], [place] [address] Dr. Sara Matos PLT 188 103/ul Normal 150-450 [facility] Comment on above: Performed By: #### T SH #### [facility] [address], [place] [address] Dr. Sara Matos RBC 3.88 106/ul Critically low 4.20-5.40 [facility] Comment on above: Performed By: #### T SH #### [facility] [address], [place] [address] Dr. Sara Matos WBC 9.8 103/ul Normal 4.0-11.0 [facility] Comment on above: Performed By: #### T SH #### [facility] [address], [place] [address] Dr. Sara Matos US PREG ANATOMY SINGLEon [...] growth detailed above. Electronically authenticated by: CHARLIE LÓPEZJAIME Date: 2022-12-02 15:25 Normal [facility] HEP B SURFACE ANTIGEN SCREEN on 11-18-2022 HBsAg Screen Negative Normal Negative [facility] Comment on above: Performed By: #### E BHARATH, UMICRO #### [facility] [address] [place] [address] [address] Sara Matos HEPATITIS C VIRUS AB W/ REFL EX QUANTon 11-18-2022 HCV AB Non-Reactive Normal Non Reactive [facility] Comment on above: Performed By: #### Sha SINHA, UMICRO #### [facility] [address] [place] [address] Dr. Sara Matos Interpretation: Comment Normal [facility] Comment on above: Result Comment: Not infected with HCV unless early or acute infection is suspected (which may be delayed in an immunocompromised individual), or other evidence exists to indicate HCV infection. Performed By: #### Sha SINAH, UMICRO #### [facility] [address] [address] [address] Sara Matos HIV 1 AND 2 WITH REFLEXon HIV Screen 4th Generation wRfx Non-Reactive Normal Non Reactive [facility] Comment on above: Result Comment: HIV Negative HIV-1/HIV-2 antibodies and HIV-1 p24 antigen were NOT detected. There is no laboratory evidence of HIV infection. Performed By: #### E LONDONR, UMICRO #### [facility] [address] [place] [address] Dr. Sara Matos RPR QUANTon 11-18-2022 Rapid Plasma Reagin, Quant Non-Reactive Normal NonRea<1:1 [facility] Comment on above: Result Comment: Plea Note: This test does not meet current guidelines for screening and diagnosis of syphilis. This test is intended for following treatment response in patients being treated for syphilis infection. To screen for syphilis infection, a reflex cascade that includes both RPR and a treponema-specific assay should be utilized, such as Treponema pallidum (Syphilis) Screening [place] (269048) or Rapid Plasma Reagin (RPR) Test With Reflex to Quantitative RPR and Confirmatory Treponema pallidum Antibodies ([id number]). Performed By: #### T SH #### [facility] [address] [place] [address] Dr. Sara Matos RUBELLA AB IGGon 11-18-2022 Rubella Antibodies, IgG 3.67 index Normal Immune >0.99 [facility] Comment on above: Result Comment: Non- immune <0.90 Equivocal 0.90 - 0.99 Immune >0.99 Performed By: #### T SH #### [facility] [address] [place] [address] Dr. Sara Matos BOX TEST SENT OUTon 11-18-19 23 SENT TO REF LAB 11/17/2022 Normal [facility] Comment on above: Performed By: #### T SH #### [facility] [address] [place] [address] Dr. Sara Matos CBC AUTO DIFFon 11-17-2022 BASO # 0.0 103/ul Normal 0.0-0.1 [facility] Comment on above: Performed By: #### JAIME GODWIN #### [facility] [address] [place] [address] Dr. Sara Matos Basophils/100 WBC (Bld) 0.4 % Normal 0.2-2.0 [facility] Comment on above: Performed By: #### JAIME GODWIN #### [facility] [address] [place] [address] Dr. Sara Matos EO # 0.1 103/ul Normal 0.0-0.7 [facility] Comment on above: Performed By: #### JAIME GODWIN #### [facility] [address] [place] [address] Dr. Sara Matos Eosinophils/100 WBC (Bld) 1.3 % Normal 0.9-7.0 [facility] Comment on above: Performed By: #### JAIME GODWIN #### [facility] [address] [place] [address] Dr. Sara Matos Erythrocyte distribution width (RBC) [Ratio] 12.3 % Normal 11.0-15.0 [facility] Comment on above: Performed By: #### Sha SINHA UMICRO #### [facility] [address] [place] [address] Dr. Sara Matos Hematocrit (Bld) [Volume fraction] 33.6 % Critically low 36.0-48.0 [facility] Comment on above: Performed By: #### Sha SINHA, UMICRO #### [facility] [address] [place] [address] Dr. Sara Matos Hemoglobin (Bld) [Mass/Vol] 11.3 g/dL Critically low 12.0-16.0 [facility] Comment on above: Performed By: #### Sha SINHA UMICRO #### [facility] [address] [place] [address] Dr. Sara Matos IG # 0.04 10e3/ul Critically high 0.00-0.03 [facility] Comment on above: Performed By: #### Sha SINHA, ICRO #### [facility] [address] [place] [address] Dr. Sara Matos IG % 0.4 % Normal 0.0-0.5 [facility] Comment on above: Performed By: #### Sha SINHA, UMICRO #### [facility] [address] [place] [address] Dr. Sara Matos LYMPH # 1.7 103/ul Normal 1.2-3.8 [facility] Comment on above: Performed By: #### Sha SINHA, UMICRO #### [facility] [address] [place] [address] Dr. Sara Maots Lymphocytes/100 WBC (Bld) 16.7 % Critically low 20.5-60.0 [facility] Comment on above: Performed By: #### Sha SINHA, UMICRO #### [facility] [address] [place] [address] Dr. Sara Matos MANUAL DIFF REQ NO Normal [facility] Comment on above: Performed By: #### FLORENTINO GODWINICRO #### [facility] [address] [place] [address] Dr. Sara Matos MCH (RBC) [Entitic mass] 28.8 pg Normal 26.7-34.0 [facility] Comment on above: Performed By: #### Sha SINHA UMICRO #### [facility] [address] [place] [address] Dr. Sara Matos MCHC (RBC) [Mass/Vol] 33.6 g/dL Normal 29.9-35.2 [facility] Comment on above: Performed By: #### FLORENTINO GODWINICRO #### [facility] [address] [place] [address] Dr. Sara Matos MCV (RBC) [Entitic vol] 85.5 fL Normal 81.0-99.0 [facility] Comment on above: Performed By: #### FLORENTINO GODWINICRO #### [facility] [address] [place] [address] Dr. Sara Matos MONO # 0.6 103/ul Normal 0.3-0.8 [facility] Comment on above: Performed By: #### KACY GODWINRO #### [facility] [address] [place] [address] Dr. Sara Matos Monocytes/100 WBC (Bld) 5.9 % Normal 1.7-12.0 [facility] Comment on above: Performed By: #### KACY GODWINRO #### [facility] [address] [place] [address] Dr. Sara Matos NEUT # 7.7 103/ul Critically high 1.4-6.5 [facility] Comment on above: Performed By: #### KACY GODWINRO #### [facility] [address] [place] [address] Dr. Sara Matos Neutrophils/100 WBC (Bld) 75.3 % Critically high 43.0-75.0 [facility] Comment on above: Performed By: #### KACY GODWINRO #### [facility] [address] [address] [address] Sara Matos Platelet mean volume (Bld) [Entitic vol] 11.2 fL Normal 9.5-13.5 [facility] Comment on above: Performed By: #### FLORENTINO GODWINICRO #### [facility] [address] [address] [address] Sara Matos PLT 217 103/ul Normal 150-450 [facility] Comment on above: Performed By: #### Sha SINHA UMICRO #### [facility] [address] [place] [address] Dr. Sara Matos RBC 3.93 106/ul Critically low 4.20-5.40 [facility] Comment on above: Performed By: #### Sha SINHA ICRO #### [facility] [address] [place] [address] Dr. Sara Matos WBC 10.2 103/ul Normal 4.0-11.0 [facility] Comment on above: Performed By: #### Sha SINHA ICRO #### [facility] [address] [place] [address] Dr. Sara Matos CULTURE URINEon 11-17-2022 CULTURE URINE Culture Observations : HEAVY GROWTH OF MIXED GENITAL JP. NO POTENTIAL PATHOGENS SEEN. Normal [facility] Comment on above: Performed By: #### Sha SINHA ICRO #### [facility] [address] [place] [address] Dr. Sara Matos DRUG SCREEN RAPID (URINE)on 11-17-2022 AMP Negative Normal NEGATIVE [facility] Comment on above: Performed By: #### P REGU, DRUGRPD #### [facility] [address] [place] [address] Dr. Sara Matos BAR Negative Normal NEGATIVE [facility] Comment on above: Performed By: #### P REGU, DRUGRPD #### [facility] [address] [place] [address] Dr. Sara Matos BUP Negative Normal NEGATIVE [facility] Comment on above: Performed By: #### P REGU, DRUGRPD #### [facility] [address] [place] [address] Dr. Sara Matos BZO Negative Normal NEGATIVE [facility] Comment on above: Performed By: #### P REGU, DRUGRPD #### [facility] [address] [place] [address] Dr. Sara Matos COLLEEN Negative Normal NEGATIVE [facility] Comment on above: Performed By: #### P REGU, DRUGRPD #### [facility] [address] [place] [address] Dr. Sara Matos CUT-OFFS SEE BELOW Normal [facility] Comment on above: Result Comment: AMP [...] Performed By: #### P REGU, DRUGRPD #### [facility] [address] [place] [address] Dr. Sara Matos DRUG CUT HEADER DRUG CLASS TEST SYSTEM CUT-OFF CONCENTRATIONS ARE FOLLOWS: Normal [facility] Comment on above: Performed By: #### P REGU, DRUGRPD #### [facility] [address] [place] [address] Dr. Sara Matos mAMP Negative Normal NEGATIVE [facility] Comment on above: Performed By: #### P REGU, DRUGRPD #### [facility] [address] [place] [address] Dr. Sara Matos MTD Negative Normal NEGATIVE [facility] Comment on above: Performed By: #### P REGU, DRUGRPD #### [facility] [address] [place] [address] Dr. Sara Matos OPI Negative Normal NEGATIVE [facility] Comment on above: Performed By: #### P REGU, DRUGRPD #### [facility] [address] [address] [address] Sara Matos OXY Negative Normal NEGATIVE [facility] Comment on above: Performed By: #### P REGU, DRUGRPD #### [facility] [address] [address] [address] Sara Matos PCP Negative Normal NEGATIVE [facility] Comment on above: Performed By: #### P REGU, DRUGRPD #### [facility] [address] [address] [address] Sara Matos PPX Negative Normal NEGATIVE [facility] Comment on above: Performed By: #### P REGU, DRUGRPD #### [facility] [address] [place] [address] Dr. Sara Matos TCA Negative Normal NEGATIVE [facility] Comment on above: Performed By: #### P REGU, DRUGRPD #### [facility] [address] [place] [address] Dr. Sara Matos THC Negative Normal NEGATIVE [facility] Comment on above: Performed By: #### P REGU, DRUGRPD #### [facility] [address] [place] [address] Dr. Sara Matos GLYCOHEMOGLOBIN A1Con 2022 ADA RECOMMENDATION SEE BELOW Normal [facility] Comment on above: Result Comment: ADA RECOMMENDED LIMIT 4.0 - 6.0 ADA THERAPEUTIC TARGET < 7.0 ACTION SUGGESTED > 7.0 Performed By: #### A 1C #### [facility] [address] [place] [address] Dr. Sara Matos Glucose [Mass/Vol] 85 mg/dL Normal [facility] Comment on above: Performed By: #### A 1C #### [facility] [address] [place] [address] Dr. Sara Matos HbA1c (Bld) [Mass fraction] 4.6 % Normal 4.5-6.2 [facility] Comment on above: Performed By: #### A 1C #### [facility] [address] [address] [address] Sara Matos URon 11-17-2022 , QUAL Positive Abnormal NEGATIVE [facility] Comment on above: Performed By: #### P URIEL, DRUGRPD #### [facility] [address] [address] [address] Sara Matos TYPE AND SCREENon 11-17-2022 TYPE AND SCREEN Negative Normal [facility] Comment on above: Performed By: #### E BHARATH UMICRO #### [facility] [address] [address] [address] Sara Matos US PREG DATING >14WEEKSon [...] LA O Date: 2022-09-07 10:38 Normal [facility] CHLAMYDIA/GONOCOCCUS DEENA (SW AB/URINE/PAPon 06-10-2022 Chlamydia trachomatis, DEENA Negative Normal Negative [facility] Comment on above: Performed By: #### T SH #### [facility] [address] [place] [address] Dr. Sara Matos Neisseria gonorrhoeae, DEENA Negative Normal Negative [facility] Comment on above: Performed By: #### T SH #### [facility] [address] [address] [address] Sara Matos GENITAL CULTUREon 06-09-2022 Genital Culture, Routine NOBACT Normal [facility] Comment on above: Result Comment: Test [...] apply to this specimen.) Performed By: #### Sha SINHA UMICRO #### [facility] [address] [place] [address] Dr. Sara Matos ER URINE PROFILEon Bilirubin Ql (U) Negative Normal NEGATIVE [facility] Comment on above: Performed By: #### Sha SINHA UMICRO #### [facility] [address] [place] [address] Dr. Sara Matos Clarity (U) CLEAR Normal CLEAR [facility] Comment on above: Performed By: #### Sha SINHA UMICRO #### [facility] [address] [place] [address] Dr. Sara Matos Color (U) LT. YELLOW Normal YELLOW [facility] Comment on above: Performed By: #### Sha SINHA UMICRO #### [facility] [address] [place] [address] Dr. Sara BUCKNER A micrscopic examination will be performed if indicated. Normal [facility] Comment on above: Performed By: #### Sha SINHA UMICRO #### [facility] [address] [place] [address] Dr. Sara Matos Glucose Ql (U) Negative Normal NEGATIVE [facility] Comment on above: Performed By: #### Sha SINHA UMICRO #### [facility] [address] [place] [address] Dr. Sara Matos Hemoglobin Ql (U) Negative Normal NEGATIVE [facility] Comment on above: Performed By: #### Sha SINHA UMJONIRO #### [facility] [address] [place] [address] Dr. Sara Matos Ketones Ql (U) Negative Normal NEGATIVE [facility] Comment on above: Performed By: #### Sha SINHA UMICRO #### [facility] [address] [place] [address] Dr. Sara Matos LEUKOCYTES TRACE Abnormal NEGATIVE [facility] Comment on above: Performed By: #### Sha SINHA UMICRO #### [facility] [address] [place] [address] Dr. Sara Matos Nitrite Ql (U) Negative Normal NEGATIVE [facility] Comment on above: Performed By: #### Sha SINHA UMICRO #### [facility] [address] [place] [address] Dr. Sara Matos pH (U) 6.0 [pH] Normal 5-9 [facility] Comment on above: Performed By: #### Sha SINHA UMICRO #### [facility] [address] [place] [address] Dr. Sara Matos SPEC GRAVITY 1.015 Normal 1.005-<=1.025 [facility] Comment on above: Performed By: #### Sha SINHA UMICRO #### [facility] [address] [place] [address] Dr. Sara Matos UA PROTEIN Negative Normal NEGATIVE/ TRACE [facility] Comment on above: Performed By: #### Sha SINHA UMICRO #### [facility] [address] [place] [address] Dr. Sara Matos UR MICRO IND INDICATED Normal [facility] Comment on above: Performed By: #### Sha SINHA UMICRO #### [facility] [address] [place] [address] Dr. Sara Matos Urobilinogen Qn (U) 0.2 {Ana'U}/dL Normal 0.2 - 1. 0 [facility] Comment on above: Performed By: #### Sha SINHA UMICRO #### [facility] [address] [place] [address] Dr. Sara Matos URon 06-06-2022 , QUAL Negative Normal NEGATIVE [facility] Comment on above: Performed By: #### P REGU #### [facility] [address] [address] [address] Sara Matos URINE MICROSCOPIC ONLYon BACTERIA NONE SEEN Normal NONE SEEN [facility] Comment on above: Performed By: #### E RUR, UMICRO #### [facility] [address] [place] [address] Dr. Sara Matos Bacteria identified Cx Nom (U) NOT INDICATED Normal [facility] Comment on above: Performed By: #### E RUR, UMICRO #### [facility] [address] [place] [address] Dr. Sara Matos CAST NONE SEEN Normal NONE SEEN [facility] Comment on above: Performed By: #### E RUR, UMICRO #### [facility] [address] [place] [address] Dr. Sara Matos Crystals LM Nom (Urine sed) NONE SEEN Normal NONE SEEN [facility] Comment on above: Performed By: #### E RUR, UMICRO #### [facility] [address] [place] [address] Dr. Sara Matos Epithelial cells LM Ql (Urine sed) FEW Abnormal NONE SEEN /RARE [facility] Comment on above: Performed By: #### E RUR, UMICRO #### [facility] [address] [place] [address] Dr. Sara Matos MUCOUS NONE SEEN Normal NONE SEEN [facility] Comment on above: Performed By: #### E RUR, UMICRO #### [facility] [address] [place] [address] Dr. Sara Matos RBC NONE SEEN Abnormal 0-2 [facility] Comment on above: Performed By: #### E RUR, UMICRO #### [facility] [address] [place] [address] Dr. Sara Matos WBC 0-2 Abnormal NONE SEEN [facility] Comment on above: Performed By: #### E RUR, UMICRO #### [facility] [address] [place] [address] Dr. Sara Matos WET PREPon 06-06-2022 CLUE CELLS NONE SEEN Normal NONE SEEN [facility] Comment on above: Performed By: #### T SH #### [facility] [address] [address] [address] Sara Matos FUNGAL ELEMENTS NONE SEEN Normal NONE SEEN The [facility] Comment on above: Performed By: #### T SH #### [facility] [address] [address] [address] Sara Matos RBC -WET PREP NONE SEEN Normal NONE SEEN The [facility] Comment on above: Performed By: #### T SH #### [facility] [address] [address] [address] Sara Matos TRICHOMONAS NONE SEEN Normal NONE SEEN [facility] Comment on above: Performed By: #### T SH #### [facility] [address] [address] [address] Sara Matos WBC- WET PREP FEW Abnormal NONE SEEN [facility] Comment on above: Performed By: #### T SH #### [facility] [address] [address] [address] Sara Matos WET PREP BACTERIA NONE SEEN Normal NONE SEEN [facility] Comment on above: Performed By: #### T SH #### [facility] [address] [address] [address] Sara Matos Abstracton 04-25-2022 Abstract [id number] Astrid Montague 1995 Date Provider Department Center 04/25/2022 LILIAN AGUIRRE [facility] Family History Problem Relation Age of Onset Heart attack Maternal Grandmother Coronary artery disease Maternal Grandmother Family Status - Relation Status Age at Maternal Grandmother Paternal Grandmother Normal [facility] Abstracton 04-22-2022 Abstract [id number] Astrid Montague 1995 Date Provider Department Center 04/22/2022 YURIDIA CARO CARD [facility] Family History Problem Relation Age of Onset Heart attack Paternal Grandmother Family Status - Relation Status Age at Paternal Grandmother Normal [facility] US GUY DOP LEG LTon 08-17-20 22 US GUY DOP LEG LT EXAMINATION: [...] DE LA O Date: 2022-04-01 17:05 Normal [facility] METANEPHRINES PLASMA FREEon 02-04-2022 Metanephrine, Pl 13.7 pg/mL Normal 0.0-88.[address] [facility] Comment on above: Performed By: #### P URIEL DRUGRPD #### [facility] [address] [address] [address] Sara Matos Normetanephrine, Pl 45.6 pg/mL Normal 0.0-210.1 [facility] Comment on above: Performed By: #### P URIEL DRUGRPD #### [facility] [address] [address] [address] Sara Matos CARDIAC ANTONY ADMITon 022 CK [Catalytic activity/Vol] 67 U/L Normal 26-192 [facility] Comment on above: Performed By: #### T SH #### [facility] [address] [address] [address] Sara Matos CK.MB [Mass/Vol] 0.99 ng/mL Normal <=3.[address] [facility] Comment on above: Performed By: #### T SH #### [facility] [address] [address] [address] Sara Matos HSTROP 4.7 pg/mL Normal 4.0-51.3 [facility] Comment on above: Result Comment: CUT- OFF POINTS HAVE BEEN ESTABLISHED BASED ON THE FOURTH UNIVERSAL DEFINITIONS OF MYOCARDIAL INFARCTION. THE UPPER REFERENCE LIMIT (URL) OF TROPONIN, DEFINED THE 99TH PERCENTILE OF cTnI DISTRIBUTION IN A REFERENCE POPULATION, HAS BEEN CONFIRMED THE DECISION THRESHOLD FOR GA DIAGNOSIS. Performed By: #### T SH #### [facility] [address] [place] [address] Dr. Sara Matos ELENA 34 ng/mL Normal 9-82 [facility] Comment on above: Performed By: #### T SH #### [facility] [address] [place] [address] Dr. Sara Matos CBC AUTO DIFFon 01-30-2022 BASO # 0.1 103/ul Normal 0.0-0.1 [facility] Comment on above: Performed By: #### T SH #### [facility] [address] [place] [address] Dr. Sara Matos Basophils/100 WBC (Bld) 0.8 % Normal 0.2-2.0 [facility] Comment on above: Performed By: #### T SH #### [facility] [address] [place] [address] Dr. Sara Matos EO # 0.1 103/ul Normal 0.0-0.7 [facility] Comment on above: Performed By: #### T SH #### [facility] [address] [place] [address] Dr. Sara Matos Eosinophils/100 WBC (Bld) 0.6 % Critically low 0.9-7.0 [facility] Comment on above: Performed By: #### T SH #### [facility] [address] [place] [address] Dr. Sara Matos Erythrocyte distribution width (RBC) [Ratio] 13.6 % Normal 11.0-15.0 [facility] Comment on above: Performed By: #### T SH #### [facility] [address] [place] [address] Dr. Sara Matos Hematocrit (Bld) [Volume fraction] 40.4 % Normal 36.0-48.0 [facility] Comment on above: Performed By: #### T SH #### [facility] [address] [place] [address] Dr. Sara Matos Hemoglobin (Bld) [Mass/Vol] 13.0 g/dL Normal 12.0-16.0 [facility] Comment on above: Performed By: #### T SH #### [facility] [address] [place] [address] Dr. Sara Matos IG # 0.03 10e3/ul Normal 0.00-0.03 [facility] Comment on above: Performed By: #### T SH #### [facility] [address] [place] [address] Dr. Sara Matos IG % 0.3 % Normal 0.0-0.5 [facility] Comment on above: Performed By: #### T SH #### [facility] [address] [place] [address] Dr. Sara Matos LYMPH # 2.6 103/ul Normal 1.2-3.8 [facility] Comment on above: Performed By: #### T SH #### [facility] [address] [place] [address] Dr. Sara Matos Lymphocytes/100 WBC (Bld) 26.5 % Normal 20.5-60.0 [facility] Comment on above: Performed By: #### T SH #### [facility] [address] [place] [address] Dr. Sara Matos MANUAL DIFF REQ NO Normal [facility] Comment on above: Performed By: #### T SH #### [facility] [address] [place] [address] Dr. Sara Matos MCH (RBC) [Entitic mass] 26.9 pg Normal 26.7-34.0 [facility] Comment on above: Performed By: #### T SH #### [facility] [address] [place] [address] Dr. Sara Matos MCHC (RBC) [Mass/Vol] 32.2 g/dL Normal 29.9-35.2 [facility] Comment on above: Performed By: #### T SH #### [facility] [address] [place] [address] Dr. Sara Matos MCV (RBC) [Entitic vol] 83.6 fL Normal 81.0-99.0 [facility] Comment on above: Performed By: #### T SH #### [facility] [address] [place] [address] Dr. Sara Matos MONO # 0.6 103/ul Normal 0.3-0.8 [facility] Comment on above: Performed By: #### T SH #### [facility] [address] [place] [address] Dr. Sara Matos Monocytes/100 WBC (Bld) 6.4 % Normal 1.7-12.0 [facility] Comment on above: Performed By: #### T SH #### [facility] [address] [place] [address] Dr. Sara Matos NEUT # 6.3 103/ul Normal 1.4-6.5 [facility] Comment on above: Performed By: #### T SH #### [facility] [address] [place] [address] Dr. Sara Matos Neutrophils/100 WBC (Bld) 65.4 % Normal 43.0-75.0 [facility] Comment on above: Performed By: #### T SH #### [facility] [address] [place] [address] Dr. Sara Matos Platelet mean volume (Bld) [Entitic vol] 11.8 fL Normal 9.5-13.5 [facility] Comment on above: Performed By: #### T SH #### [facility] [address] [place] [address] Dr. Sara Matos PLT 218 103/ul Normal 150-450 [facility] Comment on above: Performed By: #### T SH #### [facility] [address] [place] [address] Dr. Sara Matos RBC 4.83 106/ul Normal 4.20-5.40 [facility] Comment on above: Performed By: #### T SH #### [facility] [address] [place] [address] Dr. Sara Matos WBC 9.6 103/ul Normal 4.0-11.0 [facility] Comment on above: Performed By: #### T SH #### [facility] [address] [place] [address] Dr. Sara Matos ER URINE PROFILEon 06-17-202 2 Bilirubin Ql (U) Negative Normal NEGATIVE [facility] Comment on above: Performed By: #### Sha SINHA UMICRO #### [facility] [address] [place] [address] Dr. Sara Matos Clarity (U) CLEAR Normal CLEAR [facility] Comment on above: Performed By: #### E BHARATH UMICRO #### [facility] [address] [address] [address] Sara Matos Color (U) LT. YELLOW Normal YELLOW [facility] Comment on above: Performed By: #### E BHARATH UMICRO #### [facility] [address] [place] [address] Dr. Sara BUCKNER A micrscopic examination will be performed if indicated. Normal [facility] Comment on above: Performed By: #### Sha SINHA UMICRO #### [facility] [address] [place] [address] Dr. Sara Matos Glucose Ql (U) Negative Normal NEGATIVE [facility] Comment on above: Performed By: #### Sha SINHA UMICRO #### [facility] [address] [place] [address] Dr. Sara Matos Hemoglobin Ql (U) LARGE Abnormal NEGATIVE [facility] Comment on above: Performed By: #### Sha SINHA UMICRO #### [facility] [address] [place] [address] Dr. Sara Matos Ketones Ql (U) Negative Normal NEGATIVE [facility] Comment on above: Performed By: #### Sha SINHA UMICRO #### [facility] [address] [place] [address] Dr. Sara Matos LEUKOCYTES Negative Normal NEGATIVE [facility] Comment on above: Performed By: #### Sha SINHA UMICRO #### [facility] [address] [place] [address] Dr. Sara Matos Nitrite Ql (U) Negative Normal NEGATIVE [facility] Comment on above: Performed By: #### Sha SIHNA UMICRO #### [facility] [address] [place] [address] Dr. Sara Matos pH (U) 6.0 [pH] Normal 5-9 [facility] Comment on above: Performed By: #### JAIME GODWIN #### [facility] [address] [place] [address] Dr. Sara Matos SPEC GRAVITY <=1.005 Abnormal 1.005-<=1.025 [facility] Comment on above: Performed By: #### JAIME GODWIN #### [facility] [address] [place] [address] Dr. Sara Matos UA PROTEIN Negative Normal NEGATIVE/ TRACE [facility] Comment on above: Performed By: #### JAIME GODWIN #### [facility] [address] [place] [address] Dr. Sara Matos UR MICRO IND INDICATED Normal [facility] Comment on above: Performed By: #### JAIME GODWIN #### [facility] [address] [place] [address] Dr. Sara Matos Urobilinogen Qn (U) 0.2 {Ana'U}/dL Normal 0.2 - 1. 0 [facility] Comment on above: Performed By: #### JAIME GODWIN #### [facility] [address] [place] [address] Dr. Sara Matos PREG HCG QUALon 01-30-2022 , QUAL Negative Normal NEGATIVE [facility] Comment on above: Performed By: #### KACY GODWINRO #### [facility] [address] [place] [address] Dr. Sara Matos PROF 14(COMP METB)on 022 Albumin [Mass/Vol] 4.3 g/dL Normal 3.4-5.0 [facility] Comment on above: Performed By: #### T SH #### [facility] [address] [place] [address] Dr. Sara Matos Albumin/Globulin [Mass ratio] 1.2 {ratio} Normal [facility] Comment on above: Performed By: #### T SH #### [facility] [address] [place] [address] Dr. Sara Matos ALP [Catalytic activity/Vol] 63 U/L Normal 46-116 [facility] Comment on above: Performed By: #### T SH #### [facility] [address] [place] [address] Dr. Sara Matos ALT [Catalytic activity/Vol] 35 U/L Normal 14-59 [facility] Comment on above: Performed By: #### T SH #### [facility] [address] [place] [address] Dr. Sara Matos Anion gap [Moles/Vol] 9.7 mmol/L Normal [facility] Comment on above: Performed By: #### T SH #### [facility] [address] [place] [address] Dr. Sara Matos AST [Catalytic activity/Vol] 19 U/L Normal 15-37 [facility] Comment on above: Performed By: #### T SH #### [facility] [address] [place] [address] Dr. Sara Matos Bilirubin [Mass/Vol] 0.4 mg/dL Normal 0.2-1.0 [facility] Comment on above: Performed By: #### T SH #### [facility] [address] [place] [address] Dr. Sara Matos Calcium [Mass/Vol] 9.3 mg/dL Normal 8.5-10.1 [facility] Comment on above: Performed By: #### T SH #### [facility] [address] [place] [address] Dr. Sara Matos Chloride [Moles/Vol] 101 mmol/L Normal 98-107 [facility] Comment on above: Performed By: #### T SH #### [facility] [address] [place] [address] Dr. Sara Matos CO2 [Moles/Vol] 27.8 mmol/L Normal 21.0-32.[address] [facility] Comment on above: Performed By: #### T SH #### [facility] [address] [place] [address] Dr. Sara Matos Creatinine [Mass/Vol] 0.78 mg/dL Normal 0.55-1.02 [facility] Comment on above: Performed By: #### T SH #### [facility] [address] [address] [address] Sara Matos EGFR-AF FAROESE >60 Normal >=60 [facility] Comment on above: Performed By: #### T SH #### [facility] [address] [address] [address] Sara Matos EGFR-NON AF FAROESE >60 Normal >=60 [facility] Comment on above: Performed By: #### T SH #### [facility] [address] [address] [address] Sara Matos Globulin (S) [Mass/Vol] 3.5 g/dL Normal [facility] Comment on above: Performed By: #### T SH #### [facility] [address] [address] [address] Sara Matos Glucose [Mass/Vol] 89 mg/dL Normal 74-106 [facility] Comment on above: Performed By: #### T SH #### [facility] [address] [address] [address] Sara Matos Potassium [Moles/Vol] 3.5 mmol/L Normal 3.5-5.1 [facility] Comment on above: Performed By: #### T SH #### [facility] [address] [address] [address] Sara Matos Protein [Mass/Vol] 7.8 g/dL Normal 6.4-8.2 [facility] Comment on above: Performed By: #### T SH #### [facility] [address] [address] [address] Saar Matos Sodium [Moles/Vol] 135 mmol/L Critically low 136-145 [facility] Comment on above: Performed By: #### T SH #### [facility] [address] [place] [address] Dr. Sara Matos Urea nitrogen [Mass/Vol] 6.0 mg/dL Critically low 7.0-18.0 [facility] Comment on above: Performed By: #### T #### [facility] [address] [place] [address] Dr. Sara Matos Urea nitrogen/Creatinine [Mass ratio] 7.7 mg/mg Normal [facility] Comment on above: Performed By: #### T SH #### [facility] [address] [place] [address] Dr. Sara Matos URINE MICROSCOPIC ONLYon BACTERIA NONE SEEN Normal NONE SEEN [facility] Comment on above: Performed By: #### Sha SINHA, UMICRO #### [facility] [address] [place] [address] Dr. Sara Matos Bacteria identified Cx Nom (U) NOT INDICATED Normal [facility] Comment on above: Performed By: #### Sha SINHA, UMICRO #### [facility] [address] [place] [address] Dr. Sara Matos CAST NONE SEEN Normal NONE SEEN [facility] Comment on above: Performed By: #### E BHARATH UMICRO #### [facility] [address] [place] [address] Dr. Sara Matos Crystals LM Nom (Urine sed) NONE SEEN Normal NONE SEEN [facility] Comment on above: Performed By: #### Sha SINHA UMICRO #### [facility] [address] [place] [address] Dr. Sara Matos Epithelial cells LM Ql (Urine sed) RARE Normal NONE SEEN /RARE [facility] Comment on above: Performed By: #### Sha SINHA UMICRO #### [facility] [address] [place] [address] Dr. Sara Matos MUCOUS NONE SEEN Normal NONE SEEN [facility] Comment on above: Performed By: #### Sha SINHA UMICRO #### [facility] [address] [place] [address] Dr. Sara Matos RBC 0-2 Normal 0-2 [facility] Comment on above: Performed By: #### Sha SINHA UMICRO #### [facility] [address] [place] [address] Dr. Sara Matos WBC 0-2 Abnormal NONE SEEN [facility] Comment on above: Performed By: #### KACY GODWINRO #### [facility] [address] [place] [address] Dr. Sara Matos CBC AUTO DIFFon 01-24-2022 BASO # 0.1 103/ul Normal 0.0-0.1 [facility] Comment on above: Performed By: #### Sha SINHA UMICRO #### [facility] [address] [place] [address] Dr. Sara Matos Basophils/100 WBC (Bld) 0.5 % Normal 0.2-2.0 [facility] Comment on above: Performed By: #### KACY GODWINRO #### [facility] [address] [place] [address] Dr. Sara Matos EO # 0.0 103/ul Normal 0.0-0.7 [facility] Comment on above: Performed By: #### KACY GODWINRO #### [facility] [address] [place] [address] Dr. Sara Matos Eosinophils/100 WBC (Bld) 0.4 % Critically low 0.9-7.0 [facility] Comment on above: Performed By: #### FLORENTINO GODWINICRO #### [facility] [address] [place] [address] Dr. Sara Matos Erythrocyte distribution width (RBC) [Ratio] 13.3 % Normal 11.0-15.0 [facility] Comment on above: Performed By: #### Sha SINHA UMICRO #### [facility] [address] [place] [address] Dr. Sara Matos Hematocrit (Bld) [Volume fraction] 39.4 % Normal 36.0-48.0 [facility] Comment on above: Performed By: #### Sha SINHA UMICRO #### [facility] [address] [place] [address] Dr. Sara Matos Hemoglobin (Bld) [Mass/Vol] 12.9 g/dL Normal 12.0-16.0 [facility] Comment on above: Performed By: #### Sha SINHA UMICRO #### [facility] [address] [place] [address] Dr. Sara Matos IG # 0.03 10e3/ul Normal 0.00-0.03 [facility] Comment on above: Performed By: #### Sha SINHA UMICRO #### [facility] [address] [place] [address] Dr. Sara Matos IG % 0.3 % Normal 0.0-0.5 [facility] Comment on above: Performed By: #### Sha SINHA UMICRO #### [facility] [address] [place] [address] Dr. Sara Matos LYMPH # 2.8 103/ul Normal 1.2-3.8 [facility] Comment on above: Performed By: #### Sha SINHA UMICRO #### [facility] [address] [place] [address] Dr. Sara Matos Lymphocytes/100 WBC (Bld) 25.3 % Normal 20.5-60.0 [facility] Comment on above: Performed By: #### Sha SINHA UMICRO #### [facility] [address] [place] [address] Dr. Sara Matos MANUAL DIFF REQ NO Normal [facility] Comment on above: Performed By: #### Sha SINHA UMICRO #### [facility] [address] [place] [address] Dr. Sara Matos MCH (RBC) [Entitic mass] 26.5 pg Critically low 26.7-34.0 [facility] Comment on above: Performed By: #### Sha SINHA UMICRO #### [facility] [address] [place] [address] Dr. Sara Matos MCHC (RBC) [Mass/Vol] 32.7 g/dL Normal 29.9-35.2 [facility] Comment on above: Performed By: #### Sha SINHA UMICRO #### [facility] [address] [place] [address] Dr. Sara Matos MCV (RBC) [Entitic vol] 80.9 fL Critically low 81.0-99.0 [facility] Comment on above: Performed By: #### FLORENTINO GODWINICRO #### [facility] [address] [place] [address] Dr. Sara Matos MONO # 0.8 103/ul Normal 0.3-0.8 [facility] Comment on above: Performed By: #### Sha SINHA UMICRO #### [facility] [address] [place] [address] Dr. Sara Matos Monocytes/100 WBC (Bld) 6.8 % Normal 1.7-12.0 [facility] Comment on above: Performed By: #### Sha SINHA UMICRO #### [facility] [address] [place] [address] Dr. Sara Matos NEUT # 7.4 103/ul Critically high 1.4-6.5 [facility] Comment on above: Performed By: #### Sha SINHA UMICRO #### [facility] [address] [place] [address] Dr. Sara Matos Neutrophils/100 WBC (Bld) 66.7 % Normal 43.0-75.0 [facility] Comment on above: Performed By: #### Sha SINHA UMICRO #### [facility] [address] [place] [address] Dr. Sara Matos Platelet mean volume (Bld) [Entitic vol] 11.3 fL Normal 9.5-13.5 [facility] Comment on above: Performed By: #### Sha SINHA UMICRO #### [facility] [address] [place] [address] Dr. Sara Matos PLT 281 103/ul Normal 150-450 [facility] Comment on above: Performed By: #### Sha SINHA UMICRO #### [facility] [address] [place] [address] Dr. Sara Matos RBC 4.87 106/ul Normal 4.20-5.40 [facility] Comment on above: Performed By: #### JAIME GODWIN #### [facility] [address] [place] [address] Dr. Sara Matos WBC 11.1 103/ul Critically high 4.0-11.0 [facility] Comment on above: Performed By: #### JAIME GODWIN #### [facility] [address] [place] [address] Dr. Sara Matos MAGNESIUMon 01-24-2022 Magnesium [Mass/Vol] 2.0 mg/dL Normal 1.8-2.4 [facility] Comment on above: Performed By: #### JAIME GODWIN #### [facility] [address] [place] [address] Dr. Sara Matos T3 UPTAKEon 01-24-2022 T3U 37.0 % Normal 30.0-39.0 [facility] Comment on above: Performed By: #### T 3UP #### [facility] [address] [place] [address] Dr. Sara Matso T4on 01-24-2022 T4 [Mass/Vol] 11.60 ug/dL Normal 4.80-13.90 [facility] Comment on above: Performed By: #### T 4 #### [facility] [address] [place] [address] Dr. Sara Matos TSHon 01-24-2022 TSH 0.547 uIU/mL Normal 0.358-3.740 [facility] Comment on above: Performed By: #### T SH #### [facility] [address] [place] [address] Dr. Sara Matos TSH RANGE SEE BELOW Normal [facility] Comment on above: Result Comment: <0.3 4 UIU/ml HYPERTHYROID 0.34-5.60 UIU/ml EUTHYROID >5.60 UIU/ml HYPOTHYROID Performed By: #### T SH #### [facility] [address] [place] [address] Dr. Sara Matos CBC AUTO DIFFon 01-19-2022 BASO # 0.0 103/ul Normal 0.0-0.1 [facility] Comment on above: Performed By: #### T SH #### [facility] [address] [address] [address] Sara Matos Basophils/100 WBC (Bld) 0.5 % Normal 0.2-2.0 [facility] Comment on above: Performed By: #### T SH #### [facility] [address] [place] [address] Dr. Sara Matos EO # 0.1 103/ul Normal 0.0-0.7 [facility] Comment on above: Performed By: #### T SH #### [facility] [address] [place] [address] Dr. Sara Matos Eosinophils/100 WBC (Bld) 1.1 % Normal 0.9-7.0 [facility] Comment on above: Performed By: #### T SH #### [facility] [address] [place] [address] Dr. Sara Matos Erythrocyte distribution width (RBC) [Ratio] 13.6 % Normal 11.0-15.0 [facility] Comment on above: Performed By: #### T SH #### [facility] [address] [place] [address] Dr. Sara Matos Hematocrit (Bld) [Volume fraction] 38.4 % Normal 36.0-48.0 [facility] Comment on above: Performed By: #### T SH #### [facility] [address] [place] [address] Dr. Sara Matos Hemoglobin (Bld) [Mass/Vol] 12.5 g/dL Normal 12.0-16.0 [facility] Comment on above: Performed By: #### T SH #### [facility] [address] [place] [address] Dr. Sara Matos IG # 0.02 10e3/ul Normal 0.00-0.03 [facility] Comment on above: Performed By: #### T SH #### [facility] [address] [place] [address] Dr. Sara Matos IG % 0.2 % Normal 0.0-0.5 [facility] Comment on above: Performed By: #### T SH #### [facility] [address] [place] [address] Dr. Sara Matos LYMPH # 2.5 103/ul Normal 1.2-3.8 [facility] Comment on above: Performed By: #### T SH #### [facility] [address] [place] [address] Dr. Sara Matos Lymphocytes/100 WBC (Bld) 28.9 % Normal 20.5-60.0 [facility] Comment on above: Performed By: #### T SH #### [facility] [address] [place] [address] Dr. Sara Matos MANUAL DIFF REQ NO Normal [facility] Comment on above: Performed By: #### T SH #### [facility] [address] [place] [address] Dr. Sara Matos MCH (RBC) [Entitic mass] 26.9 pg Normal 26.7-34.0 [facility] Comment on above: Performed By: #### T SH #### [facility] [address] [place] [address] Dr. Sara Matos MCHC (RBC) [Mass/Vol] 32.6 g/dL Normal 29.9-35.2 [facility] Comment on above: Performed By: #### T SH #### [facility] [address] [place] [address] Dr. Sara Matos MCV (RBC) [Entitic vol] 82.6 fL Normal 81.0-99.0 [facility] Comment on above: Performed By: #### T SH #### [facility] [address] [place] [address] Dr. Sara Matos MONO # 0.7 103/ul Normal 0.3-0.8 [facility] Comment on above: Performed By: #### T SH #### [facility] [address] [place] [address] Dr. Sara Matos Monocytes/100 WBC (Bld) 7.5 % Normal 1.7-12.0 [facility] Comment on above: Performed By: #### T SH #### [facility] [address] [place] [address] Dr. Saar Matos NEUT # 5.4 103/ul Normal 1.4-6.5 [facility] Comment on above: Performed By: #### T SH #### [facility] [address] [place] [address] Dr. Sara Matos Neutrophils/100 WBC (Bld) 61.8 % Normal 43.0-75.0 [facility] Comment on above: Performed By: #### T SH #### [facility] [address] [place] [address] Dr. Sara Matos Platelet mean volume (Bld) [Entitic vol] 11.4 fL Normal 9.5-13.5 [facility] Comment on above: Performed By: #### T SH #### [facility] [address] [place] [address] Dr. Sara Matos PLT 233 103/ul Normal 150-450 [facility] Comment on above: Performed By: #### T SH #### [facility] [address] [place] [address] Dr. Sara aMtos RBC 4.65 106/ul Normal 4.20-5.40 [facility] Comment on above: Performed By: #### T SH #### [facility] [address] [place] [address] Dr. Sara Matos WBC 8.8 103/ul Normal 4.0-11.0 [facility] Comment on above: Performed By: #### T SH #### [facility] [address] [place] [address] Dr. Sara Matos PROF 14(COMP METB)on 022 Albumin [Mass/Vol] 3.8 g/dL Normal 3.4-5.0 [facility] Comment on above: Performed By: #### JAIME GODWIN #### [facility] [address] [place] [address] Dr. Sara Matos Albumin/Globulin [Mass ratio] 1.0 {ratio} Normal [facility] Comment on above: Performed By: #### JAIME GODWIN #### [facility] [address] [address] [address] Sara Matos ALP [Catalytic activity/Vol] 65 U/L Normal 46-116 [facility] Comment on above: Performed By: #### Sha SINHA UMICRO #### [facility] [address] [address] [address] Sara Matos ALT [Catalytic activity/Vol] 52 U/L Normal 14-59 [facility] Comment on above: Performed By: #### Sha SINHA, UMICRO #### [facility] [address] [address] [address] Sara Matos Anion gap [Moles/Vol] 12.0 mmol/L Normal [facility] Comment on above: Performed By: #### Sha SINHA UMICRO #### [facility] [address] [place] [address] Dr. Sara Matos AST [Catalytic activity/Vol] 28 U/L Normal 15-37 [facility] Comment on above: Performed By: #### Sha SINHA UMICRO #### [facility] [address] [place] [address] Dr. Sara Matos Bilirubin [Mass/Vol] 0.4 mg/dL Normal 0.2-1.0 [facility] Comment on above: Performed By: #### Sha SINHA, UMICRO #### [facility] [address] [place] [address] Dr. Sara Matos Calcium [Mass/Vol] 9.5 mg/dL Normal 8.5-10.1 [facility] Comment on above: Performed By: #### Sha SINHA, UMICRO #### [facility] [address] [address] [address] Sara Matos Chloride [Moles/Vol] 103 mmol/L Normal 98-107 [facility] Comment on above: Performed By: #### Sha SINHA, UMICRO #### [facility] [address] [place] [address] Dr. Sara Matos CO2 [Moles/Vol] 26.7 mmol/L Normal 21.0-32.[address] [facility] Comment on above: Performed By: #### E RUR, UMICRO #### [facility] [address] [address] [address] Sara Matos Creatinine [Mass/Vol] 0.69 mg/dL Normal 0.55-1.02 [facility] Comment on above: Performed By: #### E RUR, UMICRO #### [facility] [address] [address] [address] Sara Matos EGFR-AF FAROESE >60 Normal >=60 [facility] Comment on above: Performed By: #### E RUR, UMICRO #### [facility] [address] [address] [address] Sara Matos EGFR-NON AF FAROESE >60 Normal >=60 [facility] Comment on above: Performed By: #### E RUR, UMICRO #### [facility] [address] [address] [address] Sara Matos Globulin (S) [Mass/Vol] 3.9 g/dL Normal [facility] Comment on above: Performed By: #### E RUR, UMICRO #### [facility] [address] [address] [address] Sara Matos Glucose [Mass/Vol] 84 mg/dL Normal 74-106 [facility] Comment on above: Performed By: #### E RUR, UMICRO #### [facility] [address] [address] [address] Sara Matos Potassium [Moles/Vol] 3.7 mmol/L Normal 3.5-5.1 [facility] Comment on above: Performed By: #### E RUR, UMICRO #### [facility] [address] [address] [address] Sara Matos Protein [Mass/Vol] 7.7 g/dL Normal 6.4-8.2 [facility] Comment on above: Performed By: #### E RUR, UMICRO #### [facility] [address] [address] [address] Sara Matos Sodium [Moles/Vol] 138 mmol/L Normal 136-145 [facility] Comment on above: Performed By: #### JAIME GODWIN #### [facility] [address] [address] [address] Sara Matos Urea nitrogen [Mass/Vol] 8.0 mg/dL Normal 7.0-18.0 [facility] Comment on above: Performed By: #### JAIME GODWIN #### [facility] [address] [address] [address] Sara Matos Urea nitrogen/Creatinine [Mass ratio] 11.6 mg/mg Normal [facility] Comment on above: Performed By: #### JAIME GODWIN #### [facility] [address] [place] [address] Dr. Sara Matos TROPONIN, HIGH SENSITIVITYon 01-19-2022 HSTROP <4.0 Normal 4.0-51.3 [facility] Comment on above: Result Comment: CUT- OFF POINTS HAVE BEEN ESTABLISHED BASED ON THE FOURTH UNIVERSAL DEFINITIONS OF MYOCARDIAL INFARCTION. THE UPPER REFERENCE LIMIT (URL) OF TROPONIN, DEFINED THE 99TH PERCENTILE OF cTnI DISTRIBUTION IN A REFERENCE POPULATION, HAS BEEN CONFIRMED THE DECISION THRESHOLD FOR GA DIAGNOSIS. Performed By: #### JAIME GODWIN #### [facility] [address] [place] [address] Dr. Sara Matos XR CHEST 1 Von [...] by: DUSTY BUSCH Date: 2022-01-19 21:50 Normal [facility] US GUY DOP LEG LTon 12-26-19 US GUY DOP LEG LT EXAMINATION: US [...] DE LA O Date: 2021-12-25 12:20 Normal [facility] XR CHEST 1 Von 12-25-2021 XR [...] by: PREM GUERRA Date: 2021-12-25 11:45 Normal [facility] U24 Proteinon 09-04-2017 PROTEIN:MCNC:24H:UR INE:QN: 102 mg/24hr Normal 28-141 [facility] Comment on above: Performed By: #### 2 [id number], [id number] ####[facility] [address] [place] [address] ALBUMIN/PROTEIN.TOT AL:MFR:PT:URINE:QN: ELECTROPHORESIS 8.0 mg/dL Invalid Interpretation Code [facility] Comment on above: Result Comment: The reference range and other method performance specifications have not been established for this test; results should be integrated into the clinical context for interpretation. Performed By: #### 2 [id number], [id number] ####[facility] [address] [place] [address] U24 Total Volon 09-04-2017 Hrs Glenna 24 hour(s) Invalid Interpretation Code [facility] Comment on above: Order Comment: Order added by Discern Expert Performed By: #### 2 [id number] ####[facility] [address] [place] [address] SPECIMEN VOLUME:VOL:XXX:URIN E:QN: 1280 mL Invalid Interpretation Code [facility] Comment on above: Order Comment: Order added by Discern Expert Performed By: #### 2 [id number], [id number] ####[facility] [address] [place] [address] Vital Signs Date Time Vital Sign Value Performing Clinician Yani frye 07-18-2024 11:15-0500 Body mass index (BMI) [Ratio] 46.93 kg/m2 Isabela HENNESSY Work Phone: [facility] 07-18-2024 11:15-0500 Body weight 124.01 kg Isabela HENNESSY Work Phone: [facility] 07-18-2024 11:15-0500 Diastolic blood pressure 80 mm[Hg] Isabela HENNESSY Work Phone: [facility] 07-18-2024 11:15-0500 Systolic blood pressure 120 mm[Hg] Isabela HENNESSY Work Phone: [facility] 06-27-2024 10:38-0500 Body mass index (BMI) [Ratio] 47.1 kg/m2 Jonas Jose DO Work Phone: [facility] 06-27-2024 10:38-0500 Body weight 124.47 kg Jonas Jose DO Work Phone: [facility] 06-27-2024 10:38-0500 Diastolic blood pressure 72 mm[Hg] Jonas Jose DO Work Phone: [facility] 06-27-2024 10:38-0500 Systolic blood pressure 118 mm[Hg] Jonas Jose DO Work Phone: [facility] Healthcare Encounters Encounter Date Encounter Type Care Provider Facility Start: 07-22-2024 End: 07-22-2024 Clinisync Result Encounter Isabela HENNESSY Work Phone: [facility] External Department Unsolicited Start: 07-22-2024 End: 07-22-2024 Clinisync Result Encounter Isabela HENNESSY Work Phone: [facility] External Department Unsolicited Start: 07-18-2024 End: 07-18-2024 Bamboo flowsheet Isabela HENNESSY Work Phone: [facility] Start: 07-18-2024 End: 07-18-2024 Bamboo flowsheet Isabela HENNESSY Work Phone: [facility] Start: 07-18-2024 End: 07-18-2024 Office outpatient visit 15 minutes Isabela HENNESSY Work Phone: [facility] Comment on above: 35 weeks gestation o f ; Third trimester ; 32 weeks gestation of ; JE (amniotic fluid index) borderline low Start: 07-18-2024 End: 07-18-2024 ambulatory ISABELA PALMER Not Available Start: 06-27-2024 End: 06-27-2024 Bamboo flowsheet Jonas Jose DO Work Phone: [facility] Start: 06-27-2024 End: 06-27-2024 Bamboo flowsheet Jonas Jose DO Work Phone: [facility] Start: 06-27-2024 End: 06-27-2024 Office outpatient visit 15 minutes Jonas Jose DO Work Phone: [facility] Comment on above: Third trimester preg kat; 32 weeks gestation of ; Excessive growth affecting management of , antepartum, single or unspecified fetus Start: 06-27-2024 End: 06-27-2024 ambulatory JONAS JOSE Not Available Start: 05-15-2024 End: 05-15-2024 ambulatory ISABELA PALMER Not Available Start: 04-11-2024 End: 04-11-2024 ambulatory JONAS JOSE Not Available Start: 03-09-2024 End: 03-09-2024 ambulatory JONAS JOSE Not Available Start: 12-10-2022 End: 12-11-[address] JONAH YORK . Facility: Start: 12-02-2022 End: 12-03-2022 ambulatory [...] CHELE Facility:[facility] Start: 01-24-2022 End: 01-24-2022 ambulatory CHANNINGSANDI ELAINE Facility:[facility] Start: 01-19-2022 End: 01-19-[address] ANTONY MENA Facility:[facility] Start: 12-25-2021 End: 12-25-[address] SUHAS NAVARRETE . Facility:[facility] Start: 09-04-2017 End: 09-05-2017 Ambulatory Jonah York [place] [place] Date Procedure Procedure Detail Performing Clinician Start: 07-22-2024 MLR HEMOGLOBIN A1C Isabela HENNESSY Work Phone: Start: 07-18-2024 Urnls dip stick/tabl et rgnt non-auto w/o micrscp Isabela HENNESSY Work Phone: Plan of Treatment Date Care Activity Detail Author Start: 07-26-2024 End: 07-26-2024 Patient encounter procedure 07/26/2024 2:50 PM EST Routine [facility] [address] [place] [id number] Isabela Palmer PA [address] [place] [address] [facility] Start: 07-18-2024 End: 07-18-2025 [...] AM EST Routine [facility] [address] [place] [phone] Isabela Palmer PA [address] [place] [address] Arrived [facility] Comment on above: Arrived Start: 07-11-2024 End: 07-11-2024 Patient encounter procedure 07/11/2024 10:10 AM EST Routine [facility] [address] [place] [id number] Isabela Palmer PA [address] [place] [address] [facility] Start: 07-11-2024 End: 07-11-2024 Professional / ancillary services management 07/11/2024 9:30 AM EST Ancillary Procedure [facility] [address] [place] [phone] [facility] Start: 06-27-2024 End: 06-27-2025 US for US OB SCAN FOR GROWTH Imaging Routine Excessive growth affecting management of , antepartum, single or unspecified fetus Expected: 06/27/2024 (Approximate), Expires: 06/27/2025 [facility] Healthcare Work Phone: Comment on above: Expected: 06/27/2024 (Approximate), Expires: 06/27/2025 Start: 04-16-2024 Influenza vaccination Influenza Vacc ine (#1) [facility] Healthcare Hemoglobin A1c/Hemoglobin.total in Blood Hemoglobin A1c Lab Routine 35 weeks gestation of Third trimester 32 weeks gestation of Ordered: 07/18/2024 [facility] Healthcare Comment on above: Ordered: 07/18/2024 Payers Date Payer Category Payer Medicaid (Managed Care) [employer] [id number] 1995 Unknown [id number] 2.16840.1.450002.3.579.2. 593 1995 Unknown [id number] 2.16840.1.732871.3.579.2. 593 1995 Unknown [id number] 2.16840.1.339098.3.579.2. 593 1995 Unknown [id number] 2.16.840.1.426236.3.579.2. 593 1995 Unknown [id number] 2.16.840.1.792942.3.579.2. 593 1995 Unknown [id number] 2.16.840.1.652666.3.579.2. 593 1995 Unknown [id number] 2.16.840.1.631330.3.579.2. 593 1995 Unknown [id number] 2.16.840.1.750294.3.579.2. 593 1995 Unknown [id number] 2.16.840.1.196420.3.579.2. 593 1995 Unknown [id number] 2.16.840.1.217864.3.579.2. 593 1995 Unknown [id number] 2.16.840.1.727738.3.579.2. 593 1995 Unknown [id number] 2.16.840.1.684438.3.579.2. 593 1995 Unknown [id number] 2.16.840.1.681014.3.579.2. 593 1995 Unknown [id number] 2.16.840.1.486811.3.579.2. 593 1995 Unknown [id number] 2.16.840.1.615082.3.579.2. 593 1995 Unknown [id number] 2.16.840.1.038611.3.579.2. 1259 1995 Unknown [id number] 2.16.840.1.647246.3.579.2. 1259 1995 Unknown [id number] 2.16.840.1.008140.3.579.2. 1259 1995 Unknown [id number] 2.16.840.1.366190.3.579.2. 1259 1995 Unknown [id number] 2.16.840.1.709562.3.579.2. 1259 1959 Self-pay [id number] 1959 Unknown [id number] Social History Date Type Detail Facility Start: 01-24-2023 Tobacco smoking status [facility] Never sm oked tobacco [facility] Start: 02-10-2024 History of Social function [facility] Start: 02-10-2024 Tobacco use panel [facility] Start: 11-25-2023 [facility] Start: 1995 Sex assigned at Not on file [facility] Goals Date Patient Goal Desired Activity [...] amoxicillin (AMOXIL) 875 mg, 2 times daily vuytcqedlrwuq-YX-BFCE (Tylenol Cold Multi-Symptom) 5-10-325 mg/15 mL liquid [...] appointment. MEDICATIONS Current Outpatient Medications Medication Instructions tuphriawbgniy-DE-ZSZF (Tylenol Cold Multi-Symptom) 5-10-325 mg/15 mL liquid [...] nursing note reviewed. Exam conducted with a shale planer operator helper present. Vitals: Estimated body mass index is [...] section and content) DATE CREATED AUTHOR 02/04/2018 [facility] DATE CREATED AUTHOR AUTHOR'S ORGANIZ ATION 04/25/2022 [facility] DATE CREATED AUTHOR AUTHOR'S ORGANIZ ATION 12/13/2022 [facility] DATE CREATED AUTHOR AUTHOR'S ORGANIZ ATION 07/20/2024 [facility] EPIC Reason for Visit (unrecogniz ed [...] BE BASED ON THE PRIMARY CLINICAL RECORDS. [facility]. provides no warranty or guarantee of the accuracy or completeness of information in this document.
== END 2024-07-29 14:53 | disposition home or self-care (01) ==
LOC: US 14:52
PROVIDERS: PCP Nurse Practitioner Family; Visit Provider Physician Assistant
DX: O28.8 Other abnormal findings on antenatal screening of mother (principal); Z3A.37 37 weeks gestation of pregnancy
CPT/HCPCS: 76815

== ENCOUNTER 2024-08-10 04:47 | Inpatient (IN) | payer OTHER, SELFPAY ==
[2024-08-10] VITALS (19 sets, daily range): BP systolic 95–187; BP diastolic 50–86; PULSE 82–100; TEMP 36.7–37.1
--- OUTSIDE RECORDS SUMMARY | 2024-08-10 04:50 | XMS_ITS | CCD ---
Author Organization [facility] Care Team Providers Care Lease Administration Analyst Name Role Phone Jonah York Unavailable Unavailable [...] Attending Unavailable CHELE, CHANNING Primary Care Unavailable NURAARLENESWEETIE Admitting Unavailable NURASWEETIE SANDOVAL Attending Unavailable KARASIK ., DR SEAY Consulting Unavailabl e KARASIK ., DR SEAY Attending Unavailabl e KARASIK ., DR SEAY Admitting Unavailabl e CHELE, [facility] Primary Care Unavailable KARASIK ., DR SEAY Consulting Unavailabl e KARASIK ., DR SEAY Attending Unavailabl e KARASIK ., DR SEAY Admitting Unavailabl e CHELE, [facility] Primary Care Unavailable KARASIK ., DR SEAY Attending Unavailabl e KARASIK ., DR SEAY Admitting Unavailabl e CHELE, [facility] Primary Care Unavailable KARASIK ., DR SEAY Consulting Unavailabl e ZIEBJAIME, DR CHARLIE Aguero Consulting Unavailable CHELE, [facility] Primary Care Unavailable REINECK, DR WANDY Silva Attending Unavailabl e JEOVANNYECK, DR WANDY Silva Admitting Unavailabl e JEOVANNYECK, DR WANDY Silva Consulting Unavailabl e LEAHY ., MR GUERRERO Consulting Unavailable Unavailable Primary Care Provider UnavailJONAS Johnson Attending Unavailable ISABELA PALMER Attending Unavailable JOSEJONAS Attending Unavailable SPENCERISABELA Attending Unavailable SPENCER, ISABELA Attending Unavailable JOSE, JONAS Attending Unavailable Allergies Allergy Classification Reported Allergen(s) Allergy Type Date of Onset Reaction(s) Facility (2 sources) Escitalopram Drug Allergy 11-12-2021 [facility] Repository (18 sources) Escitalopram Drug Allergy 11-28-2021 Headache [facility] Healthcare Work Phone: Medications Current Medications Medication Drug Class(es) Dates Sig (Normalized) Sig (Original) acetaminophen 21.7 mg/ml / dextromethorphan hydrobromide 0.667 mg/ml / phenylephrine hydrochloride 0.333 mg/ml oral solution (17 sources) Uncompetitive [place] Receptor Antagonist, Sigma-1 Agonist, alpha-1 Adrenergic Agonist take 15 mL by mouth every four hours as needed for congestion phenylephrine-DM -APAP (Tylenol Cold Multi-Symptom) 5-10-325 mg/15 mL liquid Take 15 mL by mouth every 4 (four) hours if needed for congestion Active amoxicillin 875 mg oral tablet (7 sources) Penicillin-class Antibacterial Start: 07-17-2024 take 1 tablet by mouth in the morning amoxicillin (Amoxil) 875 MG tablet Take 875 mg by mouth in the morning and 875 mg before bedtime. 07/17/2024 Active Problems Active Problems Problem Classification Problem Date Documented Da te Episodic/Chronic Adjustment disorders (1 source) Reaction to severe stress, unspecified; Translations: [REACTION TO SEVERE STRESS UNS] Onset: 01-21-2022 Chronic Anxiety disorders (5 sources) Anxiety disorder, unspecified; Translations: [ANXIETY DISORDER UNSPECIFIED] Onset: 01-24-2022 Chronic Female infertility (4 sources) Female infertility associated with anovulation; Translations: [FE INFERTILITY ASSOC W/ANOVULATION] Onset: 12-02-2022 Chronic Other complications of (2 sources) Excessive growth affecting management of mother; Translations: [Maternal care for excessive growth, unspecified trimester, not applicable or unspecified] 06-27-2024 Episodic Other complications of (2 sources) Abnormal amniotic fluid; Translations: [Other abnormal findings on screening of mother] 07-18-2024 Episodic Other and delivery including normal (18 sources) Encounter for supervision of other normal , second trimester; Translations: [Encounter for test, result positive] Onset: 09-07-2022 Episodic Other screening for suspected conditions (not mental disorders or infectious disease) (9 sources) Encounter for screening for diabetes mellitus; Translations: [Encounter for other specified screening] Onset: 12-06-2022 Episodic Residual codes; unclassified (4 sources) Gestation period, 32 weeks; Translations: [32 weeks gestation of ] 06-27-2024 Episodic Residual codes; unclassified (2 sources) Gestation period, 35 weeks; Translations: [35 weeks gestation of ] 07-18-2024 Episodic Residual codes; unclassified (2 sources) Gestation period, 37 weeks; Translations: [37 weeks gestation of ] 08-01-2024 Episodic Residual codes; unclassified (2 sources) Gestation period, 26 weeks; Translations: [26 weeks gestation of ] 05-15-2024 Episodic Unclassified (1 source) COUGH, UNSPECIFIED; Translations: [COUGH, UNSPECIFIED] Onset: 12-26-2021 Unclassified (17 sources) OB Reminders Onset: 04-11-2024 04-11-2024 Past or Other Problems Problem Classification Problem Date Documented Date Episodic/Chronic Cardiac dysrhythmias (4 sources) Bradycardia, unspecified; Translations: [BRADYCARDIA UNSPECIFIED] Onset: 02-25-2022 Episodic Genitourinary symptoms and ill-defined conditions (4 sources) Dysuria; Translations: [DYSURIA] Onset: 06-06-2022 Episodic Immunizations and screening for infectious disease (3 sources) Contact with and (suspected) exposure to infections with a predominantly sexual mode of transmission; Translations: [Exposure to sexually transmissible disorder] Onset: 11-21-2022 04-11-2024 Episodic Other aftercare (1 source) Other correction (current) drug therapy; Translations: [OTH FINISH MOLDER CURRENT DRUG THERAPY] Onset: 01-26-2022 Episodic Other aftercare (1 source) group home (current) use of anticoagulants; Translations: [FINISH MOLDER CURRNT USE ANTICOAGULANTS] Onset: 12-26-2021 Episodic Other connective tissue disease (4 sources) Pain in left lower leg; Translations: [PAIN IN LEFT LOWER LEG] Onset: 04-01-2022 Episodic Other female genital disorders (1 source) Other specified noninflammatory disorders of vagina; Translations: [OTH SPEC NONINFLAMMATORY D/O VAGINA] Onset: 06-09-2022 Episodic Other female genital disorders (2 sources) Vaginal discharge; Translations: [Other specified noninflammatory disorders of vagina] 04-11-2024 Episodic Other lower respiratory disease (3 sources) Shortness of breath; Translations: [SHORTNESS OF BREATH] Onset: 12-25-2021 Episodic Residual codes; unclassified (4 sources) Procedure and treatment not carried out due to patient leaving prior to being seen by health care provider; Translations: [PROC AND TX NOT CARRIED OUT PT LEAVE] Onset: 04-09-2022 Episodic Residual codes; unclassified (2 sources) Gestation period, 21 weeks; Translations: [21 weeks gestation of ] 04-11-2024 Episodic Syncope (4 sources) Syncope and collapse; Translations: [SYNCOPE AND COLLAPSE] Onset: 01-30-2022 Episodic Thyroid disorders (1 source) Disorder of thyroid, unspecified; Translations: [DISORDER OF THYROID UNSPECIFIED] Onset: 01-26-2022 Episodic Results Test Name Value Interpretation Reference Range Facility Urinalysis macro (dipstick) panel (U)on 08-01-2024 Bilirubin, UA Negative Negative - 4(70) +++ mg/dL [facility] Blood, UA Negative Negative - 50 Shahbaz/mcL [facility] Clarity, UA Clear [facility] Color, UA Yellow [facility] Glucose, UA Negative Negative - 1999(110) ++++ mg/dL [facility] Interpretation and review of laboratory results Abnormal [facility] Ketones, UA Negative Negative - 160(16) ++++ mg/dL [facility] Leukocytes, UA Trace Negative - 500+++ Edward/mcL [facility] Nitrite, UA Negative Negative - Positive [facility] pH, UA 7 5 - 9 [facility] Protein, UA Negative Negative - 1999(20) ++++ mg/dL [facility] Spec Grav, UA 1.01 1 - 1.03 [facility] Urobilinogen, UA 0.2 0.2 - 12 mg/dL [facility] MLR HEMOGLOBIN A1Con 024 Glucose [Mass/Vol] 111 mg/dL [facility] HbA1c (Bld) [Mass fraction] 5.5 % 4.5 - 6.2 % [facility] Comment on above: ADA RECOMMENDED LIMI T 4.0 - 6.0 ADA THERAPEUTIC TARGET < 7.0 ACTION SUGGESTED > 7.0 [facility] Urinalysis macro (dipstick) panel (U)on 07-18-2024 Bilirubin, UA Negative Negative - 4(70) +++ mg/dL [facility] Blood, UA Negative Negative - 50 Shahbaz/mcL [facility] Clarity, UA Clear [facility] Color, UA Yellow [facility] Glucose, UA Negative Negative - 1999(110) ++++ mg/dL [facility] Interpretation and review of laboratory results Abnormal [facility] Ketones, UA Negative Negative - 160(16) ++++ mg/dL [facility] Leukocytes, UA Trace Negative - 500+++ Edward/mcL [facility] Nitrite, UA Negative Negative - Positive [facility] pH, UA 7 5 - 9 [facility] Protein, UA Negative Negative - 1999(20) ++++ mg/dL [facility] Spec Grav, UA 1.015 1 - 1.03 [facility] Urobilinogen, UA 0.2 0.2 - 12 mg/dL [facility] URETHRITIS/DISCHARGE PLUS VA GINITIS (HTRX)on 04-12-2024 ATOPOBIUM VAGINAE 19.927 Abnormal [facility] ATOPOBIUM VAGINAE Detected Abnormal [facility] BVAB 2,3 (BACTERIAL VAGINOSIS ASSOCIATED BACTERIA 2, 3); MOBILUNCUS SPP 0.000 [facility] BVAB 2,3 (BACTERIAL VAGINOSIS ASSOCIATED BACTERIA 2, 3); MOBILUNCUS SPP Not detected [facility] MOY ALBICANS, PARAPSILOSIS, TROPICALIS 0.000 [facility] MOY ALBICANS, PARAPSILOSIS, TROPICALIS Not detected [facility] MOY GLABRATA 0.000 [facility] MOY GLABRATA Not detected [facility] MOY KRUSEI 0.000 [facility] MOY KRUSEI Not detected [facility] CHLAMYDIA TRACHOMATIS 0.000 [facility] CHLAMYDIA TRACHOMATIS Not detected [facility] GARDNERELLA VAGINALIS 20.450 Abnormal [facility] GARDNERELLA VAGINALIS Detected Abnormal [facility] Interpretation and review of laboratory results Abnormal [facility] MEGASPHAERA (TYPES 1, 2) 0.000 [facility] MEGASPHAERA (TYPES 1, 2) Not detected [facility] MYCOPLASMA GENITALIUM 0.000 [facility] MYCOPLASMA GENITALIUM Not detected [facility] NEISSERIA GONORRHOEAE 0.000 [facility] NEISSERIA GONORRHOEAE Not detected [facility] TET B, TET M 18.992 Abnormal [facility] TET B, TET M Detected Abnormal [facility] TRICHOMONAS VAGINALIS 0.000 [facility] TRICHOMONAS VAGINALIS Not detected [facility] ALL CBC WITH AUTO DIFFon BASOPHILS ABSOLUTE AUTO 0.0 [facility] Basophils/100 WBC (Bld) 0.2 % 0.2 - 2.0 % [facility] Eosinophils/100 WBC (Bld) 0.9 % 0.9 - 7.0 % [facility] Erythrocyte distribution width (RBC) [Ratio] 13.4 % 11.0 - 15.0 % [facility] Hematocrit (Bld) [Volume fraction] 33.8 % Low 36.0 - 48.0 % [facility] Hemoglobin (Bld) [Mass/Vol] 11.3 g/dL Low 12.0 - 16.0 g/dL [facility] IMMATURE GRANULOCYTES ABS AUTO 0.11 High [facility] Immature granulocytes/100 WBC (Bld) 0.8 % High 0.0 - 0.5 % [facility] Interpretation and review of laboratory results Abnormal [facility] LYMPHOCYTES ABSOLUTE AUTO 2.3 [facility] Lymphocytes/100 WBC (Bld) 17.5 % Low 20.5 - 60.0 % [facility] MCH (RBC) [Entitic mass] 27.2 pg 26.7 - 34.0 pg [facility] MCHC (RBC) [Mass/Vol] 33.4 g/dL 29.9 - 35.2 g/dL [facility] MCV (RBC) [Entitic vol] 81.3 fL 81.0 - 99.0 fL [facility] MONOCYTES ABSOLUTE AUTO 0.7 [facility] Monocytes/100 WBC (Bld) 5.4 % 1.7 - 12.0 % [facility] NEUTROPHILS ABSOLUTE AUTO 10.0 High [facility] Neutrophils/100 WBC (Bld) 75.2 % High 43.0 - 75.0 % [facility] Platelet mean volume (Bld) [Entitic vol] 10.7 fL 9.5 - 13.5 fL [facility] TBH EO # 0.1 [facility] TBH PLT 262 [facility] RBC 4.16 Low [facility] TB WBC 13.3 High [facility] Urinalysis macro (dipstick) panel (U)on 04-11-2024 Bilirubin, UA Negative Negative - 4(70) +++ mg/dL [facility] Blood, UA Negative Negative - 50 Shahbaz/mcL [facility] Clarity, UA Clear [facility] Color, UA Yellow [facility] Glucose, UA Negative Negative - 2000(110) ++++ mg/dL [facility] Interpretation and review of laboratory results Normal [facility] Ketones, UA Negative Negative - 160(16) ++++ mg/dL [facility] Leukocytes, UA Negative Negative - 500+++ Edward/mcL [facility] Nitrite, UA Negative Negative - Positive [facility] pH, UA 6.5 5 - 9 [facility] Protein, UA Negative Negative - 2000(20) ++++ mg/dL [facility] Spec Grav, UA 1.015 1 - 1.03 [facility] Urobilinogen, UA 0.2 0.2 - 12 mg/dL [facility] GLUCOSE - 1HRon 12-10-2022 Glucose [Mass/Vol] 98 mg/dL Normal 74-[address] [facility] Comment on above: Performed By: #### G LU1HR #### [facility] [address] [place] [address] Dr. Sara Matos HEMOGRAM AND PLATELon 2022 Hematocrit (Bld) [Volume fraction] 33.8 % Critically low 36.0-48.0 [facility] Comment on above: Performed By: #### T SH #### [facility] [address] [place] [address] Dr. Sara Matos Hemoglobin (Bld) [Mass/Vol] 11.1 g/dL Critically low 12.0-16.0 [facility] Comment on above: Performed By: #### T SH #### [facility] [address] [place] [address] Dr. Sara Matos MCH (RBC) [Entitic mass] 28.6 pg Normal 26.7-34.0 [facility] Comment on above: Performed By: #### T SH #### [facility] [address] [place] [address] Dr. Sara Matos MCHC (RBC) [Mass/Vol] 32.8 g/dL Normal 29.9-35.2 [facility] Comment on above: Performed By: #### T SH #### [facility] [address] [place] [address] Dr. Sara Matos MCV (RBC) [Entitic vol] 87.1 fL Normal 81.0-99.0 [facility] Comment on above: Performed By: #### T SH #### [facility] [address] [place] [address] Dr. Sara Matos PLT 188 103/ul Normal 150-450 [facility] Comment on above: Performed By: #### T SH #### [facility] [address] [place] [address] Dr. Sara Matos RBC 3.88 106/ul Critically low 4.20-5.40 [facility] Comment on above: Performed By: #### T SH #### [facility] [address] [place] [address] Dr. Sara Matos WBC 9.8 103/ul Normal 4.0-11.0 [facility] Comment on above: Performed By: #### T #### [facility] [address] [address] [address] Sara Matos US PREG ANATOMY SINGLEon [...] LA O Date: 2022-12-02 15:25 Normal [facility] HEP B SURFACE ANTIGEN SCREEN on 11-18-2022 HBsAg Screen Negative Normal Negative [facility] Comment on above: Performed By: #### E JAIME SINHA #### [facility] [address] [place], [place] [address] Dr. Sara Matos HEPATITIS C VIRUS AB W/ REFL EX QUANTon 11-18-2022 HCV AB Non-Reactive Normal Non Reactive [facility] Comment on above: Performed By: #### E LONDONR, UMICRO #### [facility] [address] [place] [address] Dr. Sara Matos Interpretation: Comment Normal [facility] Comment on above: Result Comment: Not infected with HCV unless early or acute infection is suspected (which may be delayed in an immunocompromised individual), or other evidence exists to indicate HCV infection. Performed By: #### E LONDONR, UMICRO #### [facility] [address] [place] [address] Dr. Sara Matos HIV 1 AND 2 WITH REFLEXon HIV Screen 4th Generation wRfx Non-Reactive Normal Non Reactive [facility] Comment on above: Result Comment: HIV Negative HIV-1/HIV-2 antibodies and HIV-1 p24 antigen were NOT detected. There is no laboratory evidence of HIV infection. Performed By: #### E BHARATH, UMJONIRO #### [facility] [address] [place] [address] Dr. Sara Matos RPR QUANTon 11-18-2022 Rapid Plasma Reagin, Quant Non-Reactive Normal NonRea<1:1 [facility] Comment on above: Result Comment: Plea se Note: This test does not meet current guidelines for screening and diagnosis of syphilis. This test is intended for following treatment response in patients being treated for syphilis infection. To screen for syphilis infection, a reflex cascade that includes both RPR and a treponema-specific assay should be utilized, such as Treponema pallidum (Syphilis) Screening [place] (724060) or Rapid Plasma Reagin (RPR) Test With Reflex to Quantitative RPR and Confirmatory Treponema pallidum Antibodies (187509). Performed By: #### T SH #### [facility] [address] [place] [address] Dr. Sara Matos RUBELLA AB IGGon 11-18-2022 Rubella Antibodies, IgG 3.67 index Normal Immune >0.99 [facility] Comment on above: Result Comment: Non- immune <0.90 Equivocal 0.90 - 0.99 Immune >0.99 Performed By: #### T SH #### [facility] [address] [place] [address] Dr. Sara Matos BOX TEST SENT OUTon 11-18-19 23 SENT TO REF LAB 11/17/2022 Normal [facility] Comment on above: Performed By: #### T SH #### [facility] [address] [place] [address] Dr. Sara Matos CBC AUTO DIFFon 11-17-2022 BASO # 0.0 103/ul Normal 0.0-0.1 [facility] Comment on above: Performed By: #### E BHARATH, UMICRO #### [facility] [address] [place] [address] Dr. Sara Matos Basophils/100 WBC (Bld) 0.4 % Normal 0.2-2.0 [facility] Comment on above: Performed By: #### E BHARATH, UMICRO #### [facility] [address] [place] [address] Dr. Sara Matos EO # 0.1 103/ul Normal 0.0-0.7 [facility] Comment on above: Performed By: #### Sha SINHA, UMICRO #### [facility] [address] [place] [address] Dr. Sara Matos Eosinophils/100 WBC (Bld) 1.3 % Normal 0.9-7.0 [facility] Comment on above: Performed By: #### Sha SINHA, UMICRO #### [facility] [address] [place] [address] Dr. Sara Matos Erythrocyte distribution width (RBC) [Ratio] 12.3 % Normal 11.0-15.0 [facility] Comment on above: Performed By: #### E BHARATH, UMICRO #### [facility] [address] [place] [address] Dr. Sara Matos Hematocrit (Bld) [Volume fraction] 33.6 % Critically low 36.0-48.0 [facility] Comment on above: Performed By: #### E RUR, UMICRO #### [facility] [address] [place] [address] Dr. Sara Matos Hemoglobin (Bld) [Mass/Vol] 11.3 g/dL Critically low 12.0-16.0 [facility] Comment on above: Performed By: #### JAIME GODWIN #### [facility] [address] [place] [address] Dr. Sara Matos IG # 0.04 10e3/ul Critically high 0.00-0.03 [facility] Comment on above: Performed By: #### JAIME GODWIN #### [facility] [address] [place] [address] Dr. Sara Matos IG % 0.4 % Normal 0.0-0.5 [facility] Comment on above: Performed By: #### JAIME GODWIN #### [facility] [address] [place] [address] Dr. Sara Matos LYMPH # 1.7 103/ul Normal 1.2-3.8 [facility] Comment on above: Performed By: #### JAIME GODWIN #### [facility] [address] [place] [address] Dr. Sara Matos Lymphocytes/100 WBC (Bld) 16.7 % Critically low 20.5-60.0 [facility] Comment on above: Performed By: #### JAIME GODWIN #### [facility] [address] [place] [address] Dr. Sara Matos MANUAL DIFF REQ NO Normal [facility] Comment on above: Performed By: #### JAIME GODWIN #### [facility] [address] [place] [address] Dr. Sara Matos MCH (RBC) [Entitic mass] 28.8 pg Normal 26.7-34.0 [facility] Comment on above: Performed By: #### JAIME GODWIN #### [facility] [address] [place] [address] Dr. Sara Matos MCHC (RBC) [Mass/Vol] 33.6 g/dL Normal 29.9-35.2 [facility] Comment on above: Performed By: #### JAIME GODWIN #### [facility] [address] [place] [address] Dr. Sara Matos MCV (RBC) [Entitic vol] 85.5 fL Normal 81.0-99.0 [facility] Comment on above: Performed By: #### Sha SINHA UMICRO #### [facility] [address] [place] [address] Dr. Sara Matos MONO # 0.6 103/ul Normal 0.3-0.8 [facility] Comment on above: Performed By: #### Sha SINHA UMICRO #### [facility] [address] [place] [address] Dr. Sara Matos Monocytes/100 WBC (Bld) 5.9 % Normal 1.7-12.0 [facility] Comment on above: Performed By: #### Sha SINHA UMICRO #### [facility] [address] [place] [address] Dr. Sara Matos NEUT # 7.7 103/ul Critically high 1.4-6.5 [facility] Comment on above: Performed By: #### Sha SINHA UMICRO #### [facility] [address] [place] [address] Dr. Sara Matos Neutrophils/100 WBC (Bld) 75.3 % Critically high 43.0-75.0 [facility] Comment on above: Performed By: #### Sha SINHA UMICRO #### [facility] [address] [place] [address] Dr. Sara Matos Platelet mean volume (Bld) [Entitic vol] 11.2 fL Normal 9.5-13.5 [facility] Comment on above: Performed By: #### Sha SINHA UMICRO #### [facility] [address] [place] [address] Dr. Sara Matos PLT 217 103/ul Normal 150-450 [facility] Comment on above: Performed By: #### Sha SINHA, UMICRO #### [facility] [address] [place] [address] Dr. Sara Matos RBC 3.93 106/ul Critically low 4.20-5.40 [facility] Comment on above: Performed By: #### JAIME GODWIN #### [facility] [address] [address] [address] Sara Matos WBC 10.2 103/ul Normal 4.0-11.0 [facility] Comment on above: Performed By: #### JAIME GODWIN #### [facility] [address] [address] [address] Sara Matos CULTURE URINEon 11-17-2022 CULTURE URINE Culture Observations : HEAVY GROWTH OF MIXED GENITAL PJ. NO POTENTIAL PATHOGENS SEEN. Normal [facility] Comment on above: Performed By: #### JAIME GODWIN #### [facility] [address] [place] [address] Dr. Sara Matos DRUG SCREEN RAPID (URINE)on 11-17-2022 AMP Negative Normal NEGATIVE [facility] Comment on above: Performed By: #### P REGU, DRUGRPD #### [facility] [address] [place] [address] Dr. Sara Matos BAR Negative Normal NEGATIVE [facility] Comment on above: Performed By: #### P REGU, DRUGRPD #### [facility] [address] [place] [address] Dr. Sara Matos BUP Negative Normal NEGATIVE [facility] Comment on above: Performed By: #### P REGU, DRUGRPD #### [facility] [address] [place] [address] Dr. Sara Matos BZO Negative Normal NEGATIVE [facility] Comment on above: Performed By: #### P REGU, DRUGRPD #### [facility] [address] [place] [address] Dr. Sara Matos COLLEEN Negative Normal NEGATIVE [facility] Comment on above: Performed By: #### P REGU, DRUGRPD #### [facility] [address] [place] [address] Dr. Sara Matos CUT-OFFS SEE BELOW Normal [facility] Comment on above: Result Comment: [...] Performed By: #### P REGU, DRUGRPD #### [facility] [address] [place] [address] Dr. Sara Matos DRUG CUT HEADER DRUG CLASS TEST SYSTEM CUT-OFF CONCENTRATIONS ARE FOLLOWS: Normal [facility] Comment on above: Performed By: #### P REGU, DRUGRPD #### [facility] [address] [place] [address] Dr. Sara Matos mAMP Negative Normal NEGATIVE [facility] Comment on above: Performed By: #### P REGU, DRUGRPD #### [facility] [address] [place] [address] Dr. Sara Matos MTD Negative Normal NEGATIVE [facility] Comment on above: Performed By: #### P REGU, DRUGRPD #### [facility] [address] [place] [address] Dr. Sara Matos OPI Negative Normal NEGATIVE [facility] Comment on above: Performed By: #### P REGU, DRUGRPD #### [facility] [address] [place] [address] Dr. Sara Matos OXY Negative Normal NEGATIVE [facility] Comment on above: Performed By: #### P REGU, DRUGRPD #### [facility] [address] [place] [address] Dr. Sara Matos PCP Negative Normal NEGATIVE [facility] Comment on above: Performed By: #### P REGU, DRUGRPD #### [facility] [address] [place] [address] Dr. Sara Matos PPX Negative Normal NEGATIVE [facility] Comment on above: Performed By: #### P REGU, DRUGRPD #### [facility] [address] [address] [address] Sara Matos TCA Negative Normal NEGATIVE [facility] Comment on above: Performed By: #### P REGU, DRUGRPD #### [facility] [address] [address] [address] Sara Matos THC Negative Normal NEGATIVE [facility] Comment on above: Performed By: #### P REGU, DRUGRPD #### [facility] [address] [address] [address] Sara Matos GLYCOHEMOGLOBIN A1Con 2022 ADA RECOMMENDATION SEE BELOW Normal [facility] Comment on above: Result Comment: ADA RECOMMENDED LIMIT 4.0 - 6.0 ADA THERAPEUTIC TARGET < 7.0 ACTION SUGGESTED > 7.0 Performed By: #### A 1C #### [facility] [address] [address] [address] Sara Matos Glucose [Mass/Vol] 85 mg/dL Normal [facility] Comment on above: Performed By: #### A 1C #### [facility] [address] [address] [address] Sara Matos HbA1c (Bld) [Mass fraction] 4.6 % Normal 4.5-6.2 [facility] Comment on above: Performed By: #### A 1C #### [facility] [address] [address] [address] Sara Matos URon 11-17-2022 , QUAL Positive Abnormal NEGATIVE [facility] Comment on above: Performed By: #### P REGU, DRUGRPD #### [facility] [address] [address] [address] Sara Matos TYPE AND SCREENon 11-17-2022 TYPE AND SCREEN Negative Normal [facility] Comment on above: Performed By: #### JIAME GODWIN #### [facility] [address] [address] [address] Sara Matos US PREG DATING >14WEEKSon [...] LA O Date: 2022-09-07 10:38 Normal [facility] CHLAMYDIA/GONOCOCCUS DEENA (SW AB/URINE/PAPon 06-10-2022 Chlamydia trachomatis, DEENA Negative Normal Negative [facility] Comment on above: Performed By: #### T SH #### [facility] [address] [place] [address] Dr. Sara Matos Neisseria gonorrhoeae, DEENA Negative Normal Negative [facility] Comment on above: Performed By: #### T SH #### [facility] [address] [place] [address] Dr. Sara Matos GENITAL CULTUREon 06-09-2022 Genital Culture, Routine NOBACT Normal [facility] Comment on above: Result Comment: [...] apply to this specimen.) Performed By: #### E JAIME SINHA #### [facility] [address] [place] [address] Dr. Sara Matos ER URINE PROFILEon 2 Bilirubin Ql (U) Negative Normal NEGATIVE [facility] Comment on above: Performed By: #### Sha SINHA, UMICRO #### [facility] [address] [address] [address] Sara Matos Clarity (U) CLEAR Normal CLEAR [facility] Comment on above: Performed By: #### E BHARATH, UMICRO #### [facility] [address] [address] [address] Sara Matos Color (U) LT. YELLOW Normal YELLOW [facility] Comment on above: Performed By: #### E BHARATH UMICRO #### [facility] [address] [place] [address] Dr. Sara BUCKNER A micrscopic examination will be performed if indicated. Normal [facility] Comment on above: Performed By: #### E BHARATH UMICRO #### [facility] [address] [place] [address] Dr. Sara Matos Glucose Ql (U) Negative Normal NEGATIVE [facility] Comment on above: Performed By: #### Sha SINHA UMICRO #### [facility] [address] [place] [address] Dr. Sara Matos Hemoglobin Ql (U) Negative Normal NEGATIVE [facility] Comment on above: Performed By: #### Sha SINHA, UMICRO #### [facility] [address] [place] [address] Dr. Sara Matos Ketones Ql (U) Negative Normal NEGATIVE [facility] Comment on above: Performed By: #### Sha SINHA UMICRO #### [facility] [address] [place] [address] Dr. Sara Matos LEUKOCYTES TRACE Abnormal NEGATIVE [facility] Comment on above: Performed By: #### Sha SINHA UMICRO #### [facility] [address] [place] [address] Dr. Sara Matos Nitrite Ql (U) Negative Normal NEGATIVE [facility] Comment on above: Performed By: #### Sha SINHA UMICRO #### [facility] [address] [place] [address] Dr. Sara Matos pH (U) 6.0 [pH] Normal 5-9 [facility] Comment on above: Performed By: #### KACY GODWINRO #### [facility] [address] [place] [address] Dr. Sara Matos SPEC GRAVITY 1.015 Normal 1.005-<=1.025 [facility] Comment on above: Performed By: #### KACY GODWINRO #### [facility] [address] [place] [address] Dr. Sara Matos UA PROTEIN Negative Normal NEGATIVE/ TRACE [facility] Comment on above: Performed By: #### KACY GODWINRO #### [facility] [address] [place] [address] Dr. Sara Matos UR MICRO IND INDICATED Normal [facility] Comment on above: Performed By: #### KACY GODWINRO #### [facility] [address] [place] [address] Dr. Sara Matos Urobilinogen Qn (U) 0.2 {Ana'U}/dL Normal 0.2 - 1. 0 [facility] Comment on above: Performed By: #### KACY GODWINRO #### [facility] [address] [place] [address] Dr. Sara Matos URon 06-06-2022 , QUAL Negative Normal NEGATIVE [facility] Comment on above: Performed By: #### P REGU #### [facility] [address] [place] [address] Dr. Sara Matos URINE MICROSCOPIC ONLYon BACTERIA NONE SEEN Normal NONE SEEN [facility] Comment on above: Performed By: #### KACY GODWINRO #### [facility] [address] [place] [address] Dr. Sara Matos Bacteria identified Cx Nom (U) NOT INDICATED Normal [facility] Comment on above: Performed By: #### KACY GODWINRO #### [facility] [address] [place] [address] Dr. Sara Matos CAST NONE SEEN Normal NONE SEEN [facility] Comment on above: Performed By: #### E RUR, UMICRO #### [facility] [address] [place] [address] Dr. Sara Matos Crystals LM Nom (Urine sed) NONE SEEN Normal NONE SEEN [facility] Comment on above: Performed By: #### E RUR, UMICRO #### [facility] [address] [address] [address] Sara Matos Epithelial cells LM Ql (Urine sed) FEW Abnormal NONE SEEN /RARE [facility] Comment on above: Performed By: #### E RUR, UMICRO #### [facility] [address] [place] [address] Dr. Sara Matos MUCOUS NONE SEEN Normal NONE SEEN [facility] Comment on above: Performed By: #### E RUR, UMICRO #### [facility] [address] [place] [address] Dr. Sara Matos RBC NONE SEEN Abnormal 0-2 [facility] Comment on above: Performed By: #### E RUR, UMICRO #### [facility] [address] [place] [address] Dr. Sara Matos WBC 0-2 Abnormal NONE SEEN [facility] Comment on above: Performed By: #### E RUR, UMICRO #### [facility] [address] [place] [address] Dr. Sara Matos WET PREPon 06-06-2022 CLUE CELLS NONE SEEN Normal NONE SEEN [facility] Comment on above: Performed By: #### T SH #### [facility] [address] [place] [address] Dr. Sara Matos FUNGAL ELEMENTS NONE SEEN Normal NONE SEEN [facility] Comment on above: Performed By: #### T SH #### [facility] [address] [place] [address] Dr. Sara Matos RBC -WET PREP NONE SEEN Normal NONE SEEN [facility] Comment on above: Performed By: #### T SH #### [facility] [address] [place] [address] Dr. Sara aMtos TRICHOMONAS NONE SEEN Normal NONE SEEN [facility] Comment on above: Performed By: #### T SH #### [facility] [address] [address] [address] Sara Matos WBC- WET PREP FEW Abnormal NONE SEEN [facility] Comment on above: Performed By: #### T SH #### [facility] [address] [place], [place] [address] Dr. Sara Matos WET PREP BACTERIA NONE SEEN Normal NONE SEEN [facility] Comment on above: Performed By: #### T SH #### [facility] [address] [place], [place] [address] Dr. Sara Matos Abstracton 04-25-2022 Abstract [id number] Astrid Montague 1995 Date Provider Department Center 04/25/2022 LILIAN AGUIRRE [facility] Family History Problem Relation Age of Onset Heart attack Maternal Grandmother Coronary artery disease Maternal Grandmother Family Status - Relation Status Age at Maternal Grandmother Paternal Grandmother Normal [facility] Abstracton 04-22-2022 Abstract [id number] Astrid Montague 1995 Provider Department Center 04/22/2022 YURIDIA CARO [facility] Family History Problem Relation Age of Onset Heart attack Paternal Grandmother Family Status - Relation Status Age at Paternal Grandmother Normal [facility] US GUY DOP LEG LTon 04-01-20 US [...] LA O Date: 2022-04-01 17:05 Normal [facility] METANEPHRINES PLASMA FREEon 02-04-2022 Metanephrine, Pl 13.7 pg/mL Normal 0.0-88.0 [facility] Comment on above: Performed By: #### P URIEL, DRUGRPD #### [facility] [address] [address] [address] Sara Matos Normetanephrine, Pl 45.6 pg/mL Normal 0.0-210.1 [facility] Comment on above: Performed By: #### P URIEL, DRUGRPD #### [facility] [address] [place] [address] Dr. Sara Matos CARDIAC ANTONY ADMITon 022 CK [Catalytic activity/Vol] 67 U/L Normal 26-192 [facility] Comment on above: Performed By: #### T SH #### [facility] [address] [place] [address] Dr. Sara Matos CK.MB [Mass/Vol] 0.99 ng/mL Normal <=3.60 [facility] Comment on above: Performed By: #### T SH #### [facility] [address] [place] [address] Dr. Sara Matos HSTROP 4.7 pg/mL Normal 4.0-51.3 [facility] Comment on above: Result Comment: CUT- OFF POINTS HAVE BEEN ESTABLISHED BASED ON THE FOURTH UNIVERSAL DEFINITIONS OF MYOCARDIAL INFARCTION. THE UPPER REFERENCE LIMIT (URL) OF TROPONIN, DEFINED THE 99TH PERCENTILE OF cTnI DISTRIBUTION IN A REFERENCE POPULATION, HAS BEEN CONFIRMED THE DECISION THRESHOLD FOR [place] DIAGNOSIS. Performed By: #### T SH #### [facility] [address] [place] [address] Dr. Sara Matos ELENA 34 ng/mL Normal 9-82 [facility] Comment on above: Performed By: #### T SH #### [facility] [address] [place] [address] Dr. Sara Matos CBC AUTO DIFFon 01-30-2022 BASO # 0.1 103/ul Normal 0.0-0.1 [facility] Comment on above: Performed By: #### T SH #### [facility] [address] [place] [address] Dr. Sara Matos Basophils/100 WBC (Bld) 0.8 % Normal 0.2-2.0 [facility] Comment on above: Performed By: #### T SH #### [facility] [address] [place] [address] Dr. Sara Matos EO # 0.1 103/ul Normal 0.0-0.7 [facility] Comment on above: Performed By: #### T SH #### [facility] [address] [place] [address] Dr. Sara Matos Eosinophils/100 WBC (Bld) 0.6 % Critically low 0.9-7.0 [facility] Comment on above: Performed By: #### T SH #### [facility] [address] [place] [address] Dr. Sara Matos Erythrocyte distribution width (RBC) [Ratio] 13.6 % Normal 11.0-15.0 [facility] Comment on above: Performed By: #### T SH #### [facility] [address] [place] [address] Dr. Sara Matos Hematocrit (Bld) [Volume fraction] 40.4 % Normal 36.0-48.0 [facility] Comment on above: Performed By: #### T SH #### [facility] [address] [place] [address] Dr. Sara Matos Hemoglobin (Bld) [Mass/Vol] 13.0 g/dL Normal 12.0-16.0 [facility] Comment on above: Performed By: #### T SH #### [facility] [address] [place] [address] Dr. Sara Matos IG # 0.03 10e3/ul Normal 0.00-0.03 [facility] Comment on above: Performed By: #### T SH #### [facility] [address] [place] [address] Dr. Sara Matos IG % 0.3 % Normal 0.0-0.5 [facility] Comment on above: Performed By: #### T SH #### [facility] [address] [place] [address] Dr. Sara Matos LYMPH # 2.6 103/ul Normal 1.2-3.8 [facility] Comment on above: Performed By: #### T SH #### [facility] [address] [place] [address] Dr. Sara Matos Lymphocytes/100 WBC (Bld) 26.5 % Normal 20.5-60.0 [facility] Comment on above: Performed By: #### T SH #### [facility] [address] [place] [address] Dr. Sara Matos MANUAL DIFF REQ NO Normal [facility] Comment on above: Performed By: #### T SH #### [facility] [address] [place] [address] Dr. Sara Matos MCH (RBC) [Entitic mass] 26.9 pg Normal 26.7-34.0 [facility] Comment on above: Performed By: #### T SH #### [facility] [address] [place] [address] Dr. Sara Matos MCHC (RBC) [Mass/Vol] 32.2 g/dL Normal 29.9-35.2 [facility] Comment on above: Performed By: #### T SH #### [facility] [address] [place] [address] Dr. Sara Matos MCV (RBC) [Entitic vol] 83.6 fL Normal 81.0-99.0 [facility] Comment on above: Performed By: #### T SH #### [facility] [address] [place] [address] Dr. Sara Matos MONO # 0.6 103/ul Normal 0.3-0.8 [facility] Comment on above: Performed By: #### T SH #### [facility] [address] [place] [address] Dr. Sara Matos Monocytes/100 WBC (Bld) 6.4 % Normal 1.7-12.0 [facility] Comment on above: Performed By: #### T SH #### [facility] [address] [place] [address] Dr. Sara Matos NEUT # 6.3 103/ul Normal 1.4-6.5 [facility] Comment on above: Performed By: #### T SH #### [facility] [address] [place] [address] Dr. Sara Matos Neutrophils/100 WBC (Bld) 65.4 % Normal 43.0-75.0 [facility] Comment on above: Performed By: #### T SH #### [facility] [address] [place] [address] Dr. Sara Matos Platelet mean volume (Bld) [Entitic vol] 11.8 fL Normal 9.5-13.5 [facility] Comment on above: Performed By: #### T SH #### [facility] [address] [place] [address] Dr. Sara Matos PLT 218 103/ul Normal 150-450 [facility] Comment on above: Performed By: #### T SH #### [facility] [address] [place] [address] Dr. Sara Matos RBC 4.83 106/ul Normal 4.20-5.40 [facility] Comment on above: Performed By: #### T SH #### [facility] [address] [place] [address] Dr. Sara Matos WBC 9.6 103/ul Normal 4.0-11.0 [facility] Comment on above: Performed By: #### T SH #### [facility] [address] [place] [address] Dr. Sara Matos ER URINE PROFILEon 2 Bilirubin Ql (U) Negative Normal NEGATIVE [facility] Comment on above: Performed By: #### KACY GODWINRO #### [facility] [address] [place] [address] Dr. Sara Matos Clarity (U) CLEAR Normal CLEAR [facility] Comment on above: Performed By: #### KACY GODWINRO #### [facility] [address] [place] [address] Dr. Sara Matos Color (U) LT. YELLOW Normal YELLOW [facility] Comment on above: Performed By: #### KACY GODWINRO #### [facility] [address] [place] [address] Dr. Yilan Matos ERUAHD A micrscopic examination will be performed if indicated. Normal [facility] Comment on above: Performed By: #### Sha SINHA UMICRO #### [facility] [address] [address] [address] Sara Matos Glucose Ql (U) Negative Normal NEGATIVE [facility] Comment on above: Performed By: #### E LONDONR, UMICRO #### [facility] [address] [address] [address] Sara Matos Hemoglobin Ql (U) LARGE Abnormal NEGATIVE [facility] Comment on above: Performed By: #### E RULaci UMICRO #### [facility] [address] [address] [address] Sara Matos Ketones Ql (U) Negative Normal NEGATIVE [facility] Comment on above: Performed By: #### E BHARATH UMICRO #### [facility] [address] [place] [address] Dr. Sara Matos LEUKOCYTES Negative Normal NEGATIVE [facility] Comment on above: Performed By: #### Sha SINHA UMICRO #### [facility] [address] [place] [address] Dr. Sara Matos Nitrite Ql (U) Negative Normal NEGATIVE [facility] Comment on above: Performed By: #### Sha SINHA UMICRO #### [facility] [address] [place] [address] Dr. Sara Matos pH (U) 6.0 [pH] Normal 5-9 [facility] Comment on above: Performed By: #### Sha SINHA UMICRO #### [facility] [address] [place] [address] Dr. Sara Matos SPEC GRAVITY <=1.005 Abnormal 1.005-<=1.025 [facility] Comment on above: Performed By: #### E BHARATH, UMICRO #### [facility] [address] [place] [address] Dr. Sara Matos UA PROTEIN Negative Normal NEGATIVE/ TRACE [facility] Comment on above: Performed By: #### Sha SINHA UMICRO #### [facility] [address] [place] [address] Dr. Sara Matos UR MICRO IND INDICATED Normal [facility] Comment on above: Performed By: #### Sha SINHA JONIRO #### [facility] [address] [place] [address] Dr. Sara Matos Urobilinogen Qn (U) 0.2 {Ana'U}/dL Normal 0.2 - 1. 0 [facility] Comment on above: Performed By: #### Sha SINHA JONIRO #### [facility] [address] [place] [address] Dr. Sara Matos PREG HCG QUALon 01-30-2022 , QUAL Negative Normal NEGATIVE [facility] Comment on above: Performed By: #### [facility] [facility] [address] [place] [address] Dr. Sara Matos PROF 14(COMP METB)on 022 Albumin [Mass/Vol] 4.3 g/dL Normal 3.4-5.0 [facility] Comment on above: Performed By: #### T SH #### [facility] [address] [place] [address] Dr. Sara Matos Albumin/Globulin [Mass ratio] 1.2 {ratio} Normal [facility] Comment on above: Performed By: #### T SH #### [facility] [address] [place] [address] Dr. Sara Matos ALP [Catalytic activity/Vol] 63 U/L Normal 46-116 [facility] Comment on above: Performed By: #### T SH #### [facility] [address] [place] [address] Dr. Sara Matos ALT [Catalytic activity/Vol] 35 U/L Normal 14-59 [facility] Comment on above: Performed By: #### T SH #### [facility] [address] [place] [address] Dr. Sara Matos Anion gap [Moles/Vol] 9.7 mmol/L Normal [facility] Comment on above: Performed By: #### T SH #### [facility] [address] [address] [address] Sara Matos AST [Catalytic activity/Vol] 19 U/L Normal 15-37 [facility] Comment on above: Performed By: #### T SH #### [facility] [address] [address] [address] Sara Matos Bilirubin [Mass/Vol] 0.4 mg/dL Normal 0.2-1.0 [facility] Comment on above: Performed By: #### T SH #### [facility] [address] [place] [address] Dr. Sara Matos Calcium [Mass/Vol] 9.3 mg/dL Normal 8.5-10.1 [facility] Comment on above: Performed By: #### T SH #### [facility] [address] [place] [address] Dr. Sara Matos Chloride [Moles/Vol] 101 mmol/L Normal 98-107 [facility] Comment on above: Performed By: #### T SH #### [facility] [address] [place] [address] Dr. Sara Matos CO2 [Moles/Vol] 27.8 mmol/L Normal 21.0-32.0 [facility] Comment on above: Performed By: #### T SH #### [facility] [address] [place] [address] Dr. Sara Matos Creatinine [Mass/Vol] 0.78 mg/dL Normal 0.55-1.02 [facility] Comment on above: Performed By: #### T SH #### [facility] [address] [place] [address] Dr. Sara Matos EGFR-AF CITIZ[place] >60 Normal >=60 [facility] Comment on above: Performed By: #### T SH #### [facility] [address] [place] [address] Dr. Sara Matos EGFR-NON AF CITIZEN [place] >60 Normal >=60 [facility] Comment on above: Performed By: #### T SH #### [facility] [address] [place] [address] Dr. Sara Matos Globulin (S) [Mass/Vol] 3.5 g/dL Normal [facility] Comment on above: Performed By: #### T SH #### [facility] [address] [place] [address] Dr. Sara Matos Glucose [Mass/Vol] 89 mg/dL Normal 74-106 [facility] Comment on above: Performed By: #### T SH #### [facility] [address] [place] [address] Dr. Sara Matos Potassium [Moles/Vol] 3.5 mmol/L Normal 3.5-5.1 [facility] Comment on above: Performed By: #### T SH #### [facility] [address] [place] [address] Dr. Sara Matos Protein [Mass/Vol] 7.8 g/dL Normal 6.4-8.2 [facility] Comment on above: Performed By: #### T SH #### [facility] [address] [place] [address] Dr. Sara Matos Sodium [Moles/Vol] 135 mmol/L Critically low 136-145 [facility] Comment on above: Performed By: #### T SH #### [facility] [address] [place] [address] Dr. Sara Matos Urea nitrogen [Mass/Vol] 6.0 mg/dL Critically low 7.0-18.0 [facility] Comment on above: Performed By: #### T SH #### [facility] [address] [place] [address] Dr. Sara Matos Urea nitrogen/Creatinine [Mass ratio] 7.7 mg/mg Normal [facility] Comment on above: Performed By: #### T SH #### [facility] [address] [place] [address] Dr. Sara Matos URINE MICROSCOPIC ONLYon BACTERIA NONE SEEN Normal NONE SEEN [facility] Comment on above: Performed By: #### E JAIME SINHA #### [facility] [address] [place] [address] Dr. Sara Matos Bacteria identified Cx Nom (U) NOT INDICATED Normal [facility] Comment on above: Performed By: #### Sha CALLAHANR, UMICRO #### [facility] [address] [place] [address] Dr. Sara Matos CAST NONE SEEN Normal NONE SEEN [facility] Comment on above: Performed By: #### E RUR, UMICRO #### [facility] [address] [place] [address] Dr. Sara Matos Crystals LM Nom (Urine sed) NONE SEEN Normal NONE SEEN [facility] Comment on above: Performed By: #### E RUR, UMICRO #### [facility] [address] [place] [address] Dr. Sara Matos Epithelial cells LM Ql (Urine sed) RARE Normal NONE SEEN /RARE [facility] Comment on above: Performed By: #### E RULaci, UMICRO #### [facility] [address] [place] [address] Dr. Sara Matos MUCOUS NONE SEEN Normal NONE SEEN [facility] Comment on above: Performed By: #### Sha SINHA, UMICRO #### [facility] [address] [place] [address] Dr. Sara Matos RBC 0-2 Normal 0-2 [facility] Comment on above: Performed By: #### Sha SINHA, UMICRO #### [facility] [address] [place] [address] Dr. aSra Matos WBC 0-2 Abnormal NONE SEEN [facility] Comment on above: Performed By: #### Sha SINHA, UMICRO #### [facility] [address] [place] [address] Dr. Sara Matos CBC AUTO DIFFon 01-24-2022 BASO # 0.1 103/ul Normal 0.0-0.1 [facility] Comment on above: Performed By: #### E RULaci, UMICRO #### [facility] [address] [place] [address] Dr. Sara Matos Basophils/100 WBC (Bld) 0.5 % Normal 0.2-2.0 [facility] Comment on above: Performed By: #### JAIME GODWIN #### [facility] [address] [place] [address] Dr. Sara Matos EO # 0.0 103/ul Normal 0.0-0.7 [facility] Comment on above: Performed By: #### JAIME GODWIN #### [facility] [address] [place] [address] Dr. Sara Matos Eosinophils/100 WBC (Bld) 0.4 % Critically low 0.9-7.0 [facility] Comment on above: Performed By: #### JAIME GODWIN #### [facility] [address] [place] [address] Dr. Sara Matos Erythrocyte distribution width (RBC) [Ratio] 13.3 % Normal 11.0-15.0 [facility] Comment on above: Performed By: #### JAIME GODWIN #### [facility] [address] [place] [address] Dr. Sara Matos Hematocrit (Bld) [Volume fraction] 39.4 % Normal 36.0-48.0 [facility] Comment on above: Performed By: #### JAIME GODWIN #### [facility] [address] [place] [address] Dr. Sara Matos Hemoglobin (Bld) [Mass/Vol] 12.9 g/dL Normal 12.0-16.0 [facility] Comment on above: Performed By: #### JAIME GODWIN #### [facility] [address] [place] [address] Dr. Sara Matos IG # 0.03 10e3/ul Normal 0.00-0.03 [facility] Comment on above: Performed By: #### JAIME GODWIN #### [facility] [address] [place] [address] Dr. Sara Matos IG % 0.3 % Normal 0.0-0.5 [facility] Comment on above: Performed By: #### JAIME GODWIN #### [facility] [address] [place] [address] Dr. Sara Matos LYMPH # 2.8 103/ul Normal 1.2-3.8 [facility] Comment on above: Performed By: #### KACY GODWINRO #### [facility] [address] [place] [address] Dr. Sara Matos Lymphocytes/100 WBC (Bld) 25.3 % Normal 20.5-60.0 [facility] Comment on above: Performed By: #### KACY GODWINRO #### [facility] [address] [place] [address] Dr. Sara Matos MANUAL DIFF REQ NO Normal [facility] Comment on above: Performed By: #### KACY GODWINRO #### [facility] [address] [place] [address] Dr. Sara Matos MCH (RBC) [Entitic mass] 26.5 pg Critically low 26.7-34.0 [facility] Comment on above: Performed By: #### KACY GODWINRO #### [facility] [address] [place] [address] Dr. Sara Matos MCHC (RBC) [Mass/Vol] 32.7 g/dL Normal 29.9-35.2 [facility] Comment on above: Performed By: #### KACY GODWINRO #### [facility] [address] [place] [address] Dr. Sara Matos MCV (RBC) [Entitic vol] 80.9 fL Critically low 81.0-99.0 [facility] Comment on above: Performed By: #### FLORENTINO GODWINICRO #### [facility] [address] [place] [address] Dr. Sara Matos MONO # 0.8 103/ul Normal 0.3-0.8 [facility] Comment on above: Performed By: #### FLORENTINO GODWINICRO #### [facility] [address] [place] [address] Dr. Sara Matos Monocytes/100 WBC (Bld) 6.8 % Normal 1.7-12.0 [facility] Comment on above: Performed By: #### KACY GODWINRO #### [facility] [address] [place] [address] Dr. Sara Matos NEUT # 7.4 103/ul Critically high 1.4-6.5 [facility] Comment on above: Performed By: #### KACY GODWINRO #### [facility] [address] [place] [address] Dr. Sara Matos Neutrophils/100 WBC (Bld) 66.7 % Normal 43.0-75.0 [facility] Comment on above: Performed By: #### FLORENTINO GODWINICRO #### [facility] [address] [place] [address] Dr. Sara Matos Platelet mean volume (Bld) [Entitic vol] 11.3 fL Normal 9.5-13.5 [facility] Comment on above: Performed By: #### KACY GODWINRO #### [facility] [address] [place] [address] Dr. Sara Matos PLT 281 103/ul Normal 150-450 [facility] Comment on above: Performed By: #### KACY GODWINRO #### [facility] [address] [place] [address] Dr. Sara Matos RBC 4.87 106/ul Normal 4.20-5.40 [facility] Comment on above: Performed By: #### KACY GODWINRO #### [facility] [address] [place] [address] Dr. Sara Matos WBC 11.1 103/ul Critically high 4.0-11.0 [facility] Comment on above: Performed By: #### FLORENTINO GODWINICRO #### [facility] [address] [place] [address] Dr. Sara Matos MAGNESIUMon 01-24-2022 Magnesium [Mass/Vol] 2.0 mg/dL Normal 1.8-2.4 [facility] Comment on above: Performed By: #### KACY GODWINRO #### [facility] [address] [place] [address] Dr. Sara Matos T3 UPTAKEon 01-24-2022 T3U 37.0 % Normal 30.0-39.0 [facility] Comment on above: Performed By: #### T 3UP #### [facility] [address] [place] [address] Dr. Sara Matos T4on 01-24-2022 T4 [Mass/Vol] 11.60 ug/dL Normal 4.80-13.90 [facility] Comment on above: Performed By: #### T 4 #### [facility] [address] [place] [address] Dr. Sara Matos TSHon 01-24-2022 TSH 0.547 uIU/mL Normal 0.358-3.740 [facility] Comment on above: Performed By: #### T SH #### [facility] [address] [place] [address] Dr. Sara Matos TSH RANGE SEE BELOW Normal [facility] Comment on above: Result Comment: <0.3 4 UIU/ml HYPERTHYROID 0.34-5.60 UIU/ml EUTHYROID >5.60 UIU/ml HYPOTHYROID Performed By: #### T SH #### [facility] [address] [place] [address] Dr. Sara Matos CBC AUTO DIFFon 01-19-2022 BASO # 0.0 103/ul Normal 0.0-0.1 [facility] Comment on above: Performed By: #### T SH #### [facility] [address] [place] [address] Dr. Sara Matos Basophils/100 WBC (Bld) 0.5 % Normal 0.2-2.0 [facility] Comment on above: Performed By: #### T SH #### [facility] [address] [place] [address] Dr. Sara Matos EO # 0.1 103/ul Normal 0.0-0.7 [facility] Comment on above: Performed By: #### T SH #### [facility] [address] [place] [address] Dr. Sara Matos Eosinophils/100 WBC (Bld) 1.1 % Normal 0.9-7.0 [facility] Comment on above: Performed By: #### T SH #### [facility] [address] [place] [address] Dr. Sara Matos Erythrocyte distribution width (RBC) [Ratio] 13.6 % Normal 11.0-15.0 [facility] Comment on above: Performed By: #### T SH #### [facility] [address] [place] [address] Dr. Sara Matos Hematocrit (Bld) [Volume fraction] 38.4 % Normal 36.0-48.0 [facility] Comment on above: Performed By: #### T SH #### [facility] [address] [place] [address] Dr. Sara Matos Hemoglobin (Bld) [Mass/Vol] 12.5 g/dL Normal 12.0-16.0 [facility] Comment on above: Performed By: #### T SH #### [facility] [address] [place] [address] Dr. Sara Matos IG # 0.02 10e3/ul Normal 0.00-0.03 [facility] Comment on above: Performed By: #### T SH #### [facility] [address] [place] [address] Dr. Sara Matos IG % 0.2 % Normal 0.0-0.5 [facility] Comment on above: Performed By: #### T SH #### [facility] [address] [place] [address] Dr. Sara Matos LYMPH # 2.5 103/ul Normal 1.2-3.8 [facility] Comment on above: Performed By: #### T SH #### [facility] [address] [place] [address] Dr. Sara Matos Lymphocytes/100 WBC (Bld) 28.9 % Normal 20.5-60.0 [facility] Comment on above: Performed By: #### T SH #### [facility] [address] [place] [address] Dr. Sara Matos MANUAL DIFF REQ NO Normal [facility] Comment on above: Performed By: #### T SH #### [facility] [address] [address] [address] Sara Matos MCH (RBC) [Entitic mass] 26.9 pg Normal 26.7-34.0 [facility] Comment on above: Performed By: #### T SH #### [facility] [address] [place] [address] Dr. Sara Matos MCHC (RBC) [Mass/Vol] 32.6 g/dL Normal 29.9-35.2 [facility] Comment on above: Performed By: #### T SH #### [facility] [address] [place] [address] Dr. Sara Matos MCV (RBC) [Entitic vol] 82.6 fL Normal 81.0-99.0 [facility] Comment on above: Performed By: #### T SH #### [facility] [address] [place] [address] Dr. Sara Matos MONO # 0.7 103/ul Normal 0.3-0.8 [facility] Comment on above: Performed By: #### T SH #### [facility] [address] [place] [address] Dr. Sara Matos Monocytes/100 WBC (Bld) 7.5 % Normal 1.7-12.0 [facility] Comment on above: Performed By: #### T SH #### [facility] [address] [place] [address] Dr. Sara Matos NEUT # 5.4 103/ul Normal 1.4-6.5 [facility] Comment on above: Performed By: #### T SH #### [facility] [address] [place] [address] Dr. Sara Matos Neutrophils/100 WBC (Bld) 61.8 % Normal 43.0-75.0 [facility] Comment on above: Performed By: #### T SH #### [facility] [address] [place] [address] Dr. Sara Matos Platelet mean volume (Bld) [Entitic vol] 11.4 fL Normal 9.5-13.5 [facility] Comment on above: Performed By: #### T SH #### [facility] [address] [place] [address] Dr. Sara Matos PLT 233 103/ul Normal 150-450 [facility] Comment on above: Performed By: #### T SH #### [facility] [address] [place] [address] Dr. Sara Matos RBC 4.65 106/ul Normal 4.20-5.40 [facility] Comment on above: Performed By: #### T SH #### [facility] [address] [place] [address] Dr. Sara Matos WBC 8.8 103/ul Normal 4.0-11.0 [facility] Comment on above: Performed By: #### T SH #### [facility] [address] [place] [address] Dr. Sara Matos PROF 14(COMP METB)on 022 Albumin [Mass/Vol] 3.8 g/dL Normal 3.4-5.0 [facility] Comment on above: Performed By: #### JAIME GODWIN #### [facility] [address] [place] [address] Dr. Sara Matos Albumin/Globulin [Mass ratio] 1.0 {ratio} Normal [facility] Comment on above: Performed By: #### KACY GODWINRO #### [facility] [address] [place] [address] Dr. Sara Matos ALP [Catalytic activity/Vol] 65 U/L Normal 46-116 [facility] Comment on above: Performed By: #### KACY GODWINRO #### [facility] [address] [place] [address] Dr. Sara Matos ALT [Catalytic activity/Vol] 52 U/L Normal 14-59 [facility] Comment on above: Performed By: #### KACY GODWINRO #### [facility] [address] [place] [address] Dr. Sara Matos Anion gap [Moles/Vol] 12.0 mmol/L Normal [facility] Comment on above: Performed By: #### KACY GODWINRO #### [facility] [address] [place] [address] Dr. Sara Matos AST [Catalytic activity/Vol] 28 U/L Normal 15-37 [facility] Comment on above: Performed By: #### KACY GODWINRO #### [facility] [address] [place] [address] Dr. Sara Matos Bilirubin [Mass/Vol] 0.4 mg/dL Normal 0.2-1.0 [facility] Comment on above: Performed By: #### KACY GODWINRO #### [facility] [address] [place] [address] Dr. Sara Matos Calcium [Mass/Vol] 9.5 mg/dL Normal 8.5-10.1 [facility] Comment on above: Performed By: #### KACY GODWINRO #### [facility] [address] [place] [address] Dr. Sara Matos Chloride [Moles/Vol] 103 mmol/L Normal 98-107 [facility] Comment on above: Performed By: #### KACY GODWINRO #### [facility] [address] [place] [address] Dr. Sara Matos CO2 [Moles/Vol] 26.7 mmol/L Normal 21.0-32.0 [facility] Comment on above: Performed By: #### KACY GODWINRO #### [facility] [address] [place] [address] Dr. aSra Matos Creatinine [Mass/Vol] 0.69 mg/dL Normal 0.55-1.02 [facility] Comment on above: Performed By: #### KACY GODWINRO #### [facility] [address] [place] [address] Dr. Sara Matos EGFR-AF [place]IZ[place] >60 Normal >=60 [facility] Comment on above: Performed By: #### KACY GODWINRO #### [facility] [address] [place] [address] Dr. Sara Matos EGFR-NON AF [place]IZEN [place] >60 Normal >=60 [facility] Comment on above: Performed By: #### JAIME GODWIN #### [facility] [address] [place] [address] Dr. Sara Matos Globulin (S) [Mass/Vol] 3.9 g/dL Normal [facility] Comment on above: Performed By: #### JAIME GODWIN #### [facility] [address] [address] [address] Sara Matos Glucose [Mass/Vol] 84 mg/dL Normal 74-[address] [facility] Comment on above: Performed By: #### JAIME GODWIN #### [facility] [address] [place] [address] Dr. Sara Matos Potassium [Moles/Vol] 3.7 mmol/L Normal 3.5-5.1 [facility] Comment on above: Performed By: #### JAIME GODWIN #### [facility] [address] [place] [address] Dr. Sara Matos Protein [Mass/Vol] 7.7 g/dL Normal 6.4-8.[address] [facility] Comment on above: Performed By: #### JAIME GODWIN #### [facility] [address] [place] [address] Dr. Sara Matos Sodium [Moles/Vol] 138 mmol/L Normal 136-[address] [facility] Comment on above: Performed By: #### JAIME GODWIN #### [facility] [address] [place] [address] Dr. Sara Matos Urea nitrogen [Mass/Vol] 8.0 mg/dL Normal 7.0-18.0 [facility] Comment on above: Performed By: #### JAIME GODWIN #### [facility] [address] [place] [address] Dr. Sara Matos Urea nitrogen/Creatinine [Mass ratio] 11.6 mg/mg Normal [facility] Comment on above: Performed By: #### JAIME GODWIN #### [facility] [address] [place], [place] [address] Dr. Sara Matos TROPONIN, HIGH SENSITIVITYon 01-19-2022 HSTROP <4.0 Normal 4.0-51.3 [facility] Comment on above: Result Comment: CUT- OFF POINTS HAVE BEEN ESTABLISHED BASED ON THE FOURTH UNIVERSAL DEFINITIONS OF MYOCARDIAL INFARCTION. THE UPPER REFERENCE LIMIT (URL) OF TROPONIN, DEFINED THE 99TH PERCENTILE OF cTnI DISTRIBUTION IN A REFERENCE POPULATION, HAS BEEN CONFIRMED THE DECISION THRESHOLD FOR [place] DIAGNOSIS. Performed By: #### [facility] #### [facility] [address] [place], [place] [address] Dr. Sara Matos XR CHEST 1 Von [...] by: DUSTY BUSCH Date: 2022-01-19 21:50 Normal [facility] US GUY DOP LEG LTon 12-26-19 [...] DE LA O Date: 2021-12-25 12:20 Normal [facility] XR CHEST 1 Von 12-25-2021 XR [...] by: PREM GUERRA Date: 2021-12-25 11:45 Normal [facility] U24 Proteinon 09-04-2017 PROTEIN:MCNC:24H:UR INE:QN: 102 mg/24hr Normal 28-141 [facility] Comment on above: Performed By: #### 2 [id number], [id number] ####[facility] [id number] [place] [address] ALBUMIN/PROTEIN.TOT AL:MFR:PT:URINE:QN: ELECTROPHORESIS 8.0 mg/dL Invalid Interpretation Code [facility] Comment on above: Result Comment: The reference range and other method performance specifications have not been established for this test; results should be integrated into the clinical context for interpretation. Performed By: #### 2 [id number] ####[facility] [address] [place] [id number] U24 Total Volon 09-04-2017 Hrs Glenna 24 hour(s) Invalid Interpretation Code [facility] Comment on above: Order Comment: Order added by Discern Expert Performed By: #### [id number] ####[address] [place] [address] SPECIMEN VOLUME:VOL:XXX:URIN E:QN: 1280 mL Invalid Interpretation Code [facility] Comment on above: Order Comment: Order added by Discern Expert Performed By: #### 2 [id number], [id number] ####[address] [address] Vital Signs Date Time Vital Sign Value Performing Clinician Yani frye 08-01-2024 10:57-0500 Body mass index (BMI) [Ratio] 47.55 kg/m2 Isabela HENNESSY Work Phone: [facility] 08-01-2024 10:57-0500 Body weight 125.65 kg Isabela HENNESSY Work Phone: [facility] 08-01-2024 10:57-0500 Diastolic blood pressure 70 mm[Hg] Isabela [place] PA Work Phone: [facility] 08-01-2024 10:57-0500 Systolic blood pressure 120 mm[Hg] Isabela Spencer PA Work Phone: [facility] 07-18-2024 11:15-0500 Body mass index (BMI) [Ratio] 46.93 kg/m2 Isabela [place] PA Work Phone: [facility] 07-18-2024 11:15-0500 Body weight 124.01 kg Isabela [place] PA Work Phone: [facility] 07-18-2024 11:15-0500 Diastolic blood pressure 80 mm[Hg] Isabela Spencer PA Work Phone: [facility] 07-18-2024 11:15-0500 Systolic blood pressure 120 mm[Hg] Isabela Spencer PA Work Phone: [facility] 06-27-2024 10:38-0500 Body mass index (BMI) [Ratio] 47.1 kg/m2 Jonas Jose DO Work Phone: [facility] 06-27-2024 10:38-0500 Body weight 124.47 kg Jonas Jose DO Work Phone: [facility] 06-27-2024 10:38-0500 Diastolic blood pressure 72 mm[Hg] Jonas Jose DO Work Phone: [facility] 06-27-2024 10:38-0500 Systolic blood pressure 118 mm[Hg] Jonas Jose DO Work Phone: [facility] 05-15-2024 11:15-0400 Body mass index (BMI) [Ratio] 46.35 kg/m2 Isabela [place] PA Work Phone: [facility] 05-15-2024 11:15-0400 Body weight 122.47 kg Isabela Spencer PA Work Phone: [facility] 05-15-2024 11:15-0400 Diastolic blood pressure 80 mm[Hg] Isabela Spencer PA Work Phone: [facility] 05-15-2024 11:15-0400 Systolic blood pressure 114 mm[Hg] Isabela HENNESSY Work Phone: [facility] 04-11-2024 11:55-0400 Body mass index (BMI) [Ratio] 45.8 kg/m2 Jonas Jose DO Work Phone: [facility] 04-11-2024 11:55-0400 Body weight 121.02 kg Jonas Jose DO Work Phone: [facility] 04-11-2024 11:55-0400 Diastolic blood pressure 80 mm[Hg] Jonas Jose DO Work Phone: [facility] 04-11-2024 11:55-0400 Systolic blood pressure 118 mm[Hg] Jonas Jose DO Work Phone: [facility] Encounters Encounter Date Encounter Type Care Provider Facility Start: 08-07-2024 End: 08-07-2024 Bamboo flowsheet Jonas Jose DO Work Phone: [facility] Start: 08-07-2024 End: 08-07-2024 Bamboo flowsheet Jonas Jose DO Work Phone: [facility] Start: 08-07-2024 End: 08-07-2024 ambulatory JONAS JOSE Not Available Start: 08-01-2024 End: 08-01-2024 Bamboo flowsheet Isabela HENNESSY Work Phone: [facility] Start: 08-01-2024 End: 08-01-2024 Bamboo flowsheet Isabela HENNESSY Work Phone: [facility] Start: 08-01-2024 End: 08-01-2024 Office outpatient visit 15 minutes Isabela HENNESSY Work Phone: [facility] Comment on above: Third trimester preg kat; 37 weeks gestation of Start: 08-01-2024 End: 08-01-2024 ambulatory ISABELA PALMER Not Available Start: 07-22-2024 End: 07-22-2024 Clinisync Result Encounter Isabela HENNESSY Work Phone: [facility] External Department Unsolicited Start: 07-22-2024 End: 07-22-2024 Clinisync Result Encounter Isabela HENNESSY Work Phone: [facility] External Department Unsolicited Start: 07-18-2024 End: 07-18-2024 Bamboo flowsheet Isabela HENNESSY Work Phone: [facility] Start: 07-18-2024 End: 07-18-2024 Bamboo flowsheet Isabela HENNESSY Work Phone: [facility] Start: 07-18-2024 End: 07-18-2024 Office outpatient visit 15 minutes Isabela HENNESSY Work Phone: [facility] Comment on above: 35 weeks gestation o f ; Third trimester ; 32 weeks gestation of ; JE (amniotic fluid index) borderline low Start: 07-18-2024 End: 07-18-2024 ambulatory ISABELA PALMER Not Available Start: 06-27-2024 End: 06-27-2024 Bamboo flowsheet Jonas Jose DO Work Phone: [facility] Start: 06-27-2024 End: 06-27-2024 Bamboo flowsheet Jonas Jose DO Work Phone: [facility] Start: 06-27-2024 End: 06-27-2024 Office outpatient visit 15 minutes Jonas Jose DO Work Phone: [facility] Comment on above: Third trimester preg kat; 32 weeks gestation of ; Excessive growth affecting management of , antepartum, single or unspecified fetus Start: 06-27-2024 End: 06-27-2024 ambulatory JONAS JOSE Not Available Start: 05-15-2024 End: 05-15-2024 Bamboo flowsheet Isabela HENNESSY Work Phone: [facility] Start: 05-15-2024 End: 05-15-2024 Bamboo flowsheet Isabela HENNESSY Work Phone: [facility] Start: 05-15-2024 End: 05-15-2024 ambulatory ISABELA PALMER Not Available Start: 05-15-2024 End: 05-15-2024 Office outpatient visit 15 minutes Isabela Palmer PA Work Phone: [facility] Comment on above: 26 weeks gestation o f (Primary Dx); Second trimester ; with normal glucose tolerance test (GTT); Diabetes mellitus screening Start: 04-11-2024 End: 04-11-2024 Clinisync Result Encounter Jonas Jose DO Work Phone: [facility] External Department Unsolicited Start: 04-11-2024 End: 04-12-2024 Clinisync Result Encounter Jonas Jose DO Work Phone: [facility] External Department Unsolicited Start: 04-11-2024 End: 04-12-2024 External Result Encounter Jonas Jose DO Work Phone: [facility] External Department Unsolicited Start: 04-11-2024 End: 04-11-2024 ambulatory JONAS JOSE Not Available Start: 04-11-2024 End: 04-11-2024 Patient encounter procedure Jonas Jose DO Work Phone: [facility] Start: 04-11-2024 End: 04-11-2024 Periodic preventive med est patient 18-39 yrs Jonas Jose DO Work Phone: [facility] Comment on above: 21 weeks gestation o f ; Screening, , for anatomic survey; Exposure to STD; Vaginal discharge; Well woman exam with routine gynecological exam Start: 03-09-2024 End: 03-09-2024 ambulatory JONAS JOSE [...] Start: 09-04-2017 End: 09-05-2017 Ambulatory Jonah York Facility:[facility] Procedures Date Procedure Procedure Detail Performing Clinician Start: 08-01-2024 Urnls dip stick/tabl et rgnt non-auto w/o micrscp Isabela HENNESSY Work Phone: Start: 07-22-2024 MLR HEMOGLOBIN A1C Isabela HENNESSY Work Phone: Start: 07-18-2024 Urnls dip stick/tabl et rgnt non-auto w/o micrscp Isabela HENNESSY Work Phone: Start: 04-11-2024 URETHRITIS/DISCHARGE PLUS VAGINITIS (HTRX) Jonas Jose DO Work Phone: Start: 04-11-2024 Urnls dip stick/tabl et rgnt non-auto w/o micrscp Jonas Jose DO Work Phone: Start: 04-11-2024 ALL CBC WITH AUTO DIFF Jonas Jose DO Work Phone: Plan of Treatment Date Care Activity Detail Author Start: 08-07-2024 End: 08-07-2024 Patient encounter procedure [facility] Comment on above: Arrived Start: 08-01-2024 End: 08-01-2024 Patient encounter procedure 08/01/2024 10:40 AM EST Routine [facility] [address] [facility] [place] [phone] Isabela Palmer PA [address] [place] [address] Arrived [facility] Comment on above: Arrived Start: 07-26-2024 End: 07-26-2024 Patient encounter procedure 07/26/2024 2:50 PM EST Routine [facility] [address] [facility] [place] [address] Isabela Palmer PA [address] [place], [place] [id number] [facility] Start: 07-18-2024 End: 07-18-2025 [...] AM EST Routine [facility] [address] [facility] [place] [address] Isabela Palmer PA [address] [place] [address] Arrived [facility] Comment on above: Arrived Start: 07-11-2024 End: 07-11-2024 Patient encounter procedure 07/11/2024 10:10 AM EST Routine [facility] [address] [place] [phone] Isabela Palmer PA [address] [place] [address] [facility] Start: 07-11-2024 End: 07-11-2024 Professional / ancillary services management 07/11/2024 9:30 AM EST Ancillary Procedure [facility] [address] [place] [phone] [facility] Start: 06-27-2024 End: 06-27-2025 US for US OB SCAN FOR GROWTH Imaging Routine Excessive growth affecting management of , antepartum, single or unspecified fetus Expected: 06/27/2024 (Approximate), Expires: 06/27/2025 [facility] Work Phone: Comment on above: Expected: 06/27/2024 (Approximate), Expires: 06/27/2025 Start: 05-15-2024 End: 05-15-2025 CBC panel - Blood by Automated count CBC Lab Routine Diabetes mellitus screening Expected: 05/15/2024 (Approximate), Expires: 05/15/2025 [facility] Work Phone: Comment on above: Expected: 05/15/2024 (Approximate), Expires: 05/15/2025 Start: 05-15-2024 End: 05-15-2025 Measurement of glucose 1 hour after glucose challenge for glucose tolerance test Glucose tolerance, 1 hour Lab Routine Diabetes mellitus screening Expected: 05/15/2024 (Approximate), Expires: 05/15/2025 [facility] Comment on above: Expected: 05/15/2024 (Approximate), Expires: 05/15/2025 Start: 05-15-2024 End: 05-15-2024 Patient encounter procedure 05/15/2024 10:40 AM EDT Routine [facility] [address] [place] [phone] Isabela Palmer PA [address] [place] [address] Arrived [facility] Comment on above: Arrived Start: 05-09-2024 End: 05-09-2024 Patient encounter procedure 05/09/2024 2:30 PM EDT Routine [facility] [address] [place] [phone] Isabela Palmer PA [address] [place] [address] [facility] Start: 04-18-2024 End: 04-18-2024 Professional / ancillary services management 04/18/2024 11:00 AM EDT Ancillary Procedure [facility] [address] [facility] [place] [phone] [facility] Start: 04-16-2024 Influenza vaccination Influenza Vacc ine (#1) [facility] Start: 04-11-2024 End: 06-11-2024 Alpha fetoprotein, maternal Alpha fetoprotein, maternal Lab Routine 21 weeks gestation of Expected: 04/11/2024 (Approximate), Expires: 06/11/2024 [facility] Comment on above: Expected: 04/11/2024 (Approximate), Expires: 06/11/2024 Start: 04-11-2024 End: 04-11-2025 US for US OB ANATOMY SINGLE W US OB CERVICAL LENGTH Imaging Routine Screening, , for anatomic survey Expected: 04/11/2024 (Approximate), Expires: 04/11/2025 [facility] Comment on above: Expected: 04/11/2024 (Approximate), Expires: 04/11/2025 Start: 04-11-2024 End: 04-11-2024 Patient encounter procedure 04/11/2024 11:30 AM EDT Routine [facility] [address] [place] [address] Jonas Garcia, DO [address] [place] [address] [facility] CHLAMYDIA TRACHOMATI S (GENITO/STI) CHLAMYDIA TRACHOMATIS (GENITO/STI) Lab Routine Exposure to STD Ordered: 04/11/2024 [facility] Comment on above: Ordered: 04/11/2024 Cytology Cervical or vaginal smear or scraping study Pap Smear Pathology and Cytology Routine Well woman exam with routine gynecological exam Ordered: 04/11/2024 [facility] Comment on above: Ordered: 04/11/2024 Hemoglobin A1c/Hemoglobin.total in Blood Hemoglobin A1c Lab Routine 35 weeks gestation of Third trimester 32 weeks gestation of Ordered: 07/18/2024 [facility] Comment on above: Ordered: 07/18/2024 Neisseria gonorrhoea e DNA [Presence] in Unspecified specimen by DEENA with probe detection Neisseria gonorrhea DNA probe, direct Lab Routine Exposure to STD Ordered: 04/11/2024 [facility] Comment on above: Ordered: 04/11/2024 SURESWAB(R) ADVANCED VAGINITIS PLUS, TMA SURESWAB(R) ADVANCED VAGINITIS PLUS, TMA Pathology and Cytology Routine Vaginal discharge Ordered: 04/11/2024 [facility] Work Phone: Comment on above: Ordered: 04/11/2024 Payers Date Payer Category Payer Medicaid [employer] [place] [employer] [id number] 2018-Present [address] [place] [id number] [id number] 2018 Medicaid (Managed Care) [facility] MEDICAID [id number] 1995 Unknown [id number] 2.16.840.1.307515.3.579.2. 593 1995 Unknown [id number] 2.16.840.1.728757.3.579.2. 593 1995 Unknown [id number] 2.16.840.1.110004.3.579.2. 593 1995 Unknown [id number] 2.16.840.1.796258.3.579.2. 593 1995 Unknown [id number] 2.16.840.1.456557.3.579.2. 593 1995 Unknown [id number] 2.16.840.1.161992.3.579.2. 593 1995 Unknown [id number] 2.16.840.1.133672.3.579.2. 593 1995 Unknown [id number] 2.16.840.1.357862.3.579.2. 593 1995 Unknown [id number] 2.16.840.1.289147.3.579.2. 593 1995 Unknown [id number] 2.16.840.1.256183.3.579.2. 593 1995 Unknown [id number] 2.16.840.1.756737.3.579.2. 593 1995 Unknown [id number] 2.16.840.1.859842.3.579.2. 593 1995 Unknown [id number] 2.16.840.1.328470.3.579.2. 593 1995 Unknown [id number] 2.16.840.1.119450.3.579.2. 593 1995 Unknown [id number] 2.16.840.1.217506.3.579.2. 593 1995 Unknown [id number] 2.16.840.1.989808.3.579.2. 9 1995 Unknown [id number] 2.16.840.1.540068.3.579.2. 9 1995 Unknown [id number] 2.16.840.1.453768.3.579.2. 9 1995 Unknown [id number] 2.16.840.1.043741.3.579.2. 9 1995 Unknown [id number] 2.16.840.1.328222.3.579.2. 9 1995 Unknown [id number] 2.16.840.1.669984.3.579.2. 9 1995 Unknown [id number] 2.16.840.1.015521.3.579.2. 9 1959 Self-pay [id number] 1959 Unknown [id number] Social History Date Type Detail Facility Start: 01-24-2023 Tobacco smoking status NHIS Never sm oked tobacco [facility] Start: 05-11-2023 End: 02-10-2024 [facility] of Social function [facility] Start: 05-11-2023 End: 02-10-2024 Tobacco use panel [facility] Start: 11-25-2023 [facility] Start: 1995 Sex assigned at Not on file [facility] Goals Date Patient Goal Desired Activity /State Personal health goal History of Present illness Narrative 08-01-2024 MINOO Ramos - 08/01/2024 10:40 AM EST Note Date & Type Note Facility 08-01-2024 History of Presen t illness Narrative Reason for Appointment: Patient ID: Astrid Montague is a 28 y.o. female who presents for Routine Visit Patient presents today for Return OB appointment. MEDICATIONS Current Outpatient Medications Medication Instructions amoxicillin (AMOXIL) 875 mg, 2 times daily ofioikgjsofxx-XE-YGSE (Tylenol Cold Multi-Symptom) 5-10-325 mg/15 mL liquid [...] reviewed. Vitals: Estimated body mass index is 47.55 kg/m as calculated from the following: Height as of 12/02/22: 5' 4 . Weight as of this encounter: 277 lb. BP: 120/70 Patient's last menstrual period was 11/11/2023. ASSESSMENT & PLAN ICD-10-CM 1. Third trimester Z34.93 POCT urinalysis dipstick manually resulted 2. 37 weeks gestation of Z3A.37 Return OB: Patient presents today for a routine obstetrics appointment. Patient is currently 37w5d . Patient states she is doing well but has complaints of being tired due to current . Patient has verbalizes frequent movement. labor precautions was discussed/given and patient was instructed to perform kick counts three times a day. Patient being induced on 08/10/24. Je results reviewed Orders Placed This Encounter Procedures POCT urinalysis dipstick manually resulted Follow Up: Patient is to return to office in 1 week for routine OB appointment. Documented by MINOO Ramos on behalf of: MINOO Ramos documented in this encounter [facility] History of Present illness Narrative 07-18-2024 MINOO Ramos - 07/18/2024 11:10 AM EST Note Date & Type Note Facility 07-18-2024 History of Presen t illness Narrative Reason for Appointment: Patient ID: Astrid Montague is a 28 y.o. female who presents for Routine Visit Patient presents today for Return OB appointment. MEDICATIONS Current Outpatient Medications Medication Instructions amoxicillin (AMOXIL) 875 mg, 2 times daily evbmwqitnvcvs-IH-VYEY (Tylenol Cold Multi-Symptom) 5-10-325 mg/15 mL liquid [...] appointment. MEDICATIONS Current Outpatient Medications Medication Instructions cqukdyirtgyxa-KJ-JASW (Tylenol Cold Multi-Symptom) 5-10-325 mg/15 mL liquid [...] nursing note reviewed. Exam conducted with a political aide present. Vitals: Estimated body mass index is [...] DO documented in this encounter [facility] History of Present illness Narrative 05-15-2024 MINOO Ramos - 05/15/2024 10:40 AM EDT Note Date & Type Note Facility 05-15-2024 History of Presen t illness Narrative Reason for Appointment: Patient ID: Astrid Montague is a 28 y.o. female who presents for Routine Visit Patient presents today for Return OB appointment. MEDICATIONS Current Outpatient Medications Medication Instructions elhwpjrrtznye-AT-BKLH (Tylenol Cold Multi-Symptom) 5-10-325 mg/15 mL liquid [...] murmur History of gestational hypertension Panic attacks ([facility]) Social History Tobacco Use Smoking status: Never [...] reviewed. Vitals: Estimated body mass index is 46.35 kg/m as calculated from the following: Height as of 12/02/22: 5' 4 . Weight as of this encounter: 270 lb. BP: 114/80 Patient's last menstrual period was 11/11/2023. ASSESSMENT & PLAN ICD-10-CM 1. Second trimester Z34.92 2. with normal glucose tolerance test (GTT) Z34.90 3. Diabetes mellitus screening Z13.1 CBC Glucose tolerance, 1 hour Return OB: Patient presents today for a routine obstetrics appointment. Patient is currently 26w4d . Patient states she is doing well but has complaints of being tired due to current . Patient has verbalizes frequent movement. labor precautions was discussed/given and patient was instructed to perform kick counts three times a day. Orders Placed This Encounter Procedures CBC Glucose tolerance, 1 hour Follow Up: Patient is to return to office in 2 week for routine OB appointment. Documented by MINOO Ramos on behalf of: MINOO Ramos documented in this encounter [facility] History of Present illness Narrative 04-11-2024 Deepika LopezYASMIN - 04/11/2024 11:30 AM EDT Note Date & Type Note Facility 04-11-2024 History of Presen t illness Narrative Reason for Appointment: Patient ID: Astrid Montague is a 28 y.o. female who presents for No chief complaint on file. Patient presents today for Annual Exam. and Return OB appointment. MEDICATIONS Current Outpatient Medications Medication Instructions etvmkruorxguc-PL-BMEL (Tylenol Cold Multi-Symptom) 5-10-325 mg/15 mL liquid [...] Constitutional: Appearance: Normal appearance. She is well-developed. Genitourinary: Vulva normal. Right Adnexa: not tender and no mass present. Left Adnexa: not tender and no mass present. No cervical discharge. Breasts: Breasts are soft. Right: Normal. Left: Normal. HENT: Head: Normocephalic. Nose: Nose normal. Mouth/Throat: Mouth: Mucous membranes are moist. Cardiovascular: Rate and Rhythm: Normal rate and regular rhythm. Pulmonary: Effort: Pulmonary effort is normal. Breath sounds: Normal breath sounds. Abdominal: General: Bowel sounds are normal. There is no distension. Palpations: Abdomen is soft. Tenderness: There is no abdominal tenderness. There is no guarding or rebound. Musculoskeletal: General: No swelling. Normal range of motion. Cervical back: Normal range of motion. Right lower leg: No edema. Left lower leg: No edema. Neurological: General: No focal deficit present. Mental Status: She is alert and oriented to person, place, and time. Skin: General: Skin is warm and dry. Psychiatric: Mood and Affect: Mood normal. Behavior: Behavior normal. Vitals and nursing note reviewed. Exam conducted with a political aide present. Vitals: Estimated body mass index is 45.8 kg/m as calculated from the following: Height as of 12/02/22: 5' 4 . Weight as of this encounter: 266 lb 12.8 oz. BP: 118/80 Patient's last menstrual period was 11/11/2023. ASSESSMENT & PLAN ICD-10-CM 1. 21 weeks gestation of Z3A.21 POCT urinalysis dipstick manually resulted Alpha fetoprotein, maternal Alpha fetoprotein, maternal 2. Screening, , for anatomic survey Z36.89 US OB ANATOMY SINGLE W US OB CERVICAL LENGTH 3. Exposure to STD Z20.2 CHLAMYDIA TRACHOMATIS (GENITO/STI) Neisseria gonorrhea DNA probe, direct 4. Vaginal discharge N89.8 SURESWAB(R) ADVANCED VAGINITIS PLUS, TMA 5. Well woman exam with routine gynecological exam Z01.419 Pap Smear New OB: Patient presents today for 1st time obstetrics appointment with provider. Patient is currently 21w5d . Patients history has been reviewed in great detail including any potential risks. Patient stated she currently has no complaints. Expectations throughout regarding labs, ultrasounds, and appointments have been discussed with the patient in detail. It was reiterated that the patient is to drink 6-8 glasses of water a day, eat 6 small meals a day, do not consume raw or undercooked meat, and stay away from [facility]. Patient has been consulted regarding any further do's and don'ts of . Patient voiced understanding and all questions and concerns were answered. Return OB/Annual Exam: Patient presents today for an annual exam/routine obstetrics appointment. Patient is currently 21w5d . Patient is doing well and states she has no complaints. Pap/cultures was obtained without difficulty and patient was given msAFP order to have obtained. Orders Placed This Encounter Procedures US OB ANATOMY SINGLE W US OB CERVICAL LENGTH CHLAMYDIA TRACHOMATIS (GENITO/STI) Neisseria gonorrhea DNA probe, direct Alpha fetoprotein, maternal POCT urinalysis dipstick manually resulted Follow Up: Patient is to return to our office in 4 weeks for routine OB appointment Patient is currently getting over COVID and was instructed to call office if she feels that she needs to have a Z-alyssa sent to pharmacy. Return OB/Annual Exam: Patient presents today for an annual exam/routine obstetrics appointment. Patient is currently 21w5d . Patient is doing well and states she has no complaints. Pap/cultures was obtained without difficulty and patient was given msAFP order to have obtained. Orders Placed This Encounter Procedures US OB ANATOMY SINGLE W US OB CERVICAL LENGTH CHLAMYDIA TRACHOMATIS (GENITO/STI) Neisseria gonorrhea DNA probe, direct Alpha fetoprotein, maternal POCT urinalysis dipstick manually resulted Follow Up: Patient is to return to our office in 4 weeks for routine OB appointment Orders Placed This Encounter Procedures US OB ANATOMY SINGLE W US OB CERVICAL LENGTH CHLAMYDIA TRACHOMATIS (GENITO/STI) Neisseria gonorrhea DNA probe, direct Alpha fetoprotein, maternal POCT urinalysis dipstick manually resulted Follow Up: Patient is to return in 4 weeks for routine OB appointment. Documented by Deepika Lopez LPN on behalf of: Isabela Palmer PA-C documented in this encounter [facility] Evaluation [...] fluid documented in this encounter [facility] Evaluation note Note Date & Type Note Facility Evaluation note Diagnosis Third trimester state, incidental 37 weeks gestation of documented in this encounter [facility] Evaluation note Note Date & Type Note Facility Evaluation note Diagnosis 21 weeks gestation of Screening, , for anatomic survey Encounter for anatomic survey Exposure to STD Vaginal discharge Leukorrhea, not specified as infective Well woman exam with routine gynecological exam Routine gynecological examination documented in this encounter [facility] Evaluation note Note Date & Type Note Facility Evaluation note Diagnosis 26 weeks gestation of - Primary Second trimester state, incidental with normal glucose tolerance test (GTT) Diabetes mellitus screening Screening for diabetes mellitus documented in this encounter [facility] Summary Purpose Family History No Family History Records FoundNo Family History Records FoundNo Family History Records FoundNo Family History Records Found Advance Directives No Advanced Directives Records FoundNo Advanced Directives Records FoundNo Advanced Directives Records FoundNo Advanced Directives Records Found Additional Source Comments INFORMATION SOURCE (unrecogn ized section and content) DATE CREATED AUTHOR 02/04/2018 [facility] DATE CREATED AUTHOR AUTHOR'S ORGANIZ ATION 04/25/2022 [facility] DATE CREATED AUTHOR AUTHOR'S ORGANIZ ATION 12/13/2022 [facility] DATE CREATED AUTHOR AUTHOR'S ORGANIZ ATION 08/09/2024 [facility] EPIC Reason for Visit (unrecogniz [...] BE BASED ON THE PRIMARY CLINICAL RECORDS. [facility]. provides no warranty or guarantee of the accuracy or completeness of information in this document.
[2024-08-10] MEDS: 0.9 % SODIUM CHLORIDE 1,000 ML 125 ML IV (05:12)
[2024-08-10] MEDS: OXYTOCIN/0.9 % SODIUM CHLORIDE 10 UNITS/500 ML PLAST..BAG 6 UNIT IV (05:45)
[2024-08-10 07:03] LABS: Hematocrit 30.7 % (36.0-48.0); Hemoglobin 9.8 g/dL (12.0-16.0); Mean Corpuscular HGB Conc 31.9 g/dL (29.9-35.2); Mean Corpuscular Hemoglobin 25.7 pg (26.7-34.0); Mean Corpuscular Volume 80.4 fL (81.0-99.0); Mean Platelet Volume 11.6 fL (9.5-13.5); Platelet Count 277 10^3/uL (150-450); Red Blood Count 3.82 10^6/uL (4.20-5.40); Red Cell Distribution Width 14.4 % (11.0-15.0); White Blood Count 13.3 10^3/uL (4.0-11.0)
[2024-08-10 07:54] LABS: Amphetamine Screen Urine NEGATIVE (NEGATIVE); Barbiturates Screen Urine NEGATIVE (NEGATIVE); Benzodiazepines Screen Urine NEGATIVE (NEGATIVE); Buprenorphine Screen Urine NEGATIVE (NEGATIVE); Cannabinoid Screen Urine NEGATIVE (NEGATIVE); Cocaine Screen Urine NEGATIVE (NEGATIVE); Methadone Screen Urine NEGATIVE (NEGATIVE); Methamphetamines Screen Urine NEGATIVE (NEGATIVE); Opiate Screen Urine NEGATIVE (NEGATIVE); Oxycodone Screen Urine NEGATIVE (NEGATIVE); Phencyclidine Screen Urine NEGATIVE (NEGATIVE); Tricyclic Antidepressant Urine NEGATIVE (NEGATIVE)
[2024-08-10] MEDS: 0.9 % SODIUM CHLORIDE 1,000 ML 1000 ML IV (13:07)
[2024-08-10] MEDS: OXYTOCIN/0.9 % SODIUM CHLORIDE 10 UNITS/500 ML PLAST..BAG 60 UNIT IV (16:21)
[2024-08-11] VITALS (23 sets, daily range): BP systolic 98–173; BP diastolic 39–75; PULSE 68–104; TEMP 35.7–37.6; O2SAT 96–98
[2024-08-11] MEDS: MISOPROSTOL 100 MCG TABLET 25 MCG VAGINAL (09:15)
--- NOTE | 2024-08-11 09:28 | P.OBPN_ITS ---
Pain Control Pain control: other Comments: S/P AROM YESTERDAY AND PITOCIN FOR INDUCTION OF LABOR, LABOR WAS NOT INDUCED. THE CERVIX REMAINED 3 CM AT INNER OS, HEAD WAS BALLOTTABLE, POSITION POSTERIOR, EFFACEMENT 50 PERCENT AND SOFT. THE PITOCIN WAS STOPPED, (WAS AT 20 MIU). THE PATIENT WAS GIVEN DINNER AND ALLOWED TO SLEEP THROUGH OUT THE NIGHT. THE HEART REMAINED CAT I. ONCE THE PITOCIN WAS STOPPED THE CONTRACTIONS DISSIPATED. Pelvic Exam Dilation (cm): 3 (THE OUTER OS IS FIVE CM HOWEVER THE INNER OS IS THREE CM) Effacement (%): 50 (THE PREVIOUS EXAMINER STATED THE CERVICAL SHORTENING WAS 80 PERCENT. I DISAGREE. IT IS 50 PERCENT.) Contractions Monitor mode: None Contraction pattern: Absent Contraction intensity: Mild (PRESENTLY THERE ARE NO CONTRACTIONS. PERVIOUSLY WHEN PITOCIN WAS RUNNING, THEY WERE NOT PAINFUL.) station: -3 (I DISAGREE WITH THE PREVIOUS ASSESSMENT WHICH PLACED THE HEAD AT MINUS 1 STATION. THE HEAD IS BALLOTTABLE) Amniotic membrane status: Leaking status: Category I Assessment and Plan Pitocin rate (mU/min): 0 Assessment: other Plan: other (I EXPLAINED TO THE PATIENT THAT THOUGH AROM AND PITOCIN TYPICALLY WORKS A MEANS OF INDUCTION OF LABOR AT TERM....IN THIS CASE IT DID NOT. ) Comments: I EXPLAINED TO THE PATIENT THE FOLLOWIN) A DIFFERENT MEAN OF INDUCTION WILL BE STARTED THIS AM WITH A MEDICATION CALLED CYTOTEC. ITS MECHANISM OF ACTION WAS EXPLAINED. THE INDICATIONS FOR SECTION WERE EXPLAINED. THE PEREZ CCESS RATE OF CYTOTEC VS PITOCIN VS CERVIDIL WAS EXPLAINED. THE PATIENT AGREED TO HAVING 50 MICROGRAMS OF CYTOTEC PLACED IN THE POSTERIOR FORNIX OF THE CERVIX. 2) I EXPLAINED WHY PROPHYLACTIC ANTIBIOTIC WAS BEING STARTED. THE PATIENT IS GBS NEGATIVE HOWEVER SHE HAS BEEN RUPTURED MORE THAN 24 HOURS AND THOUGH SHE HAS NO TEMP OR INDICATORS OF INFECTION, THE VAGINA HAS MANY BACTERIAL MICROORGANISMS THAT NOW HAVE NO BARRIER TO THE BABY THE AMNIOTIC SAC IS RUPTURED. SO INITIATING ANTIBIOTIC IS A PROPHYLACTIC ACTION. THE PATIENT AND HER STATED UNDERSTANDING AND AGREEMENT TO PLAN OF INDUCTION.
[2024-08-11] MEDS: AMPICILLIN SODIUM 2,000 MG in 0.9 % SODIUM CHLORIDE 100 ML 200 MG IV (11:37)
[2024-08-11] MEDS: OXYTOCIN/0.9 % SODIUM CHLORIDE 10 UNITS/500 ML PLAST..BAG 6 UNIT IV (13:30)
--- NOTE | 2024-08-11 14:25 | PM.OBPNL ---
Pain Control Pain control: other Comments: no contractions no pain Pelvic Exam Dilation (cm): 4 Effacement (%): 75 Contractions Monitor mode: External Contraction frequency: 0 Contraction duration: 0 Contraction pattern: Absent Contraction intensity: Mild (PRESENTLY THERE ARE NO CONTRACTIONS. PERVIOUSLY WHEN PITOCIN WAS RUNNING, THEY WERE NOT PAINFUL.) station: -3 Amniotic membrane status: Leaking status: Category I Comments: THIS PATIENT IS ADMITTEDLY A NERVOUS PERSON. AT THIS POINT SHE IS TEARFUL STATING SHE CAN NOT CONTINUE WITH INDUCTION. SHE IS HAVING AN ANXIETY MOMENT. I SPENT TIME WITH HER REASSURING HER THAT THOUGH SHE WAS FEELING FRIGHTENED SHE WOULD BE FINE. TIME WAS GIVEN FOR HER TO VENT HER FEARS AND ADDRESS ANY WORRY SHE HAD IE WERE HER VITAL SIGN OK FOR SURGERY. SHE WANTS TO WAIT UNTIL HER MOM ARRIVES AND THEN IS REQUESTING THE CSECTION WHICH IS APPROPRIATE BECAUSE HER EMOTIONAL STATE WILL NOT TOLERATE CONTINUING WITH THIS INDUCTION WHICH SIMPLY IS NOT HAPPENING DESPITE BEST EFFORTS. THE BABY REMAINS CAT I. THERE ARE NO CONTRACTIONS ON 4 MIU PITOCIN WHICH WAS STARTED AFTER CERVIDIL HAD BEEN IN PLACE 4 HOURS. THE CERVIX IS MINIMALLY CHANGED AND THE CHANGE MAY SIMPLY BE DUE TO INTEROBSERVER VARIABILITY. THIS CSECTION IS NOT A OR B BUT IS BEING CALLED FOR MOM'S EMOTIONAL INSTABILITY/ANXIETY Assessment and Plan Pitocin rate (mU/min): 0 Plan: Comments: TEAM WILL BE CALLED ONCE THE PATIENT'S MOM HAS ARRIVED. SHE WANTS HER MOM IN THE OR WITH HER
[2024-08-11] MEDS: CITRIC ACID/SODIUM CITRATE 30 ML SOLUTION ORACIT SHOHL'S SOLN PO (14:47)
[2024-08-11] MEDS: CEFAZOLIN SODIUM/DEXTROSE,ISO 2 GM/50 ML PIGGYBACK IV ×2 (14:47→22:00)
[2024-08-11] MEDS: FAMOTIDINE/PF 20 MG/2 ML VIAL IV (14:47)
[2024-08-11] MEDS: METOCLOPRAMIDE HCL 10 MG/2 ML VIAL IVP (14:47)
[2024-08-11] MEDS: LACTATED RINGER'S SOLUTION 1,000 ML 50 ML IV ×2 (15:45→15:50)
--- NOTE | 2024-08-11 16:12 | PM.OBPRCCS ---
Procedure Pre-op/Post-op diagnoses: Pre-Op/Post-Op Diagnoses Operation Date: 08/11/24 14:45 <No data on this case meets the specified criteria> Procedure: Procedures Operation Date: 08/11/24 14:45 Actual Procedure Side Surgeon p Not Applicable Lee Ann Brewer MD Estimated blood loss (mL): 500 Disposition: floor Anesthesia type: Spinal Complications: NONE Narrative: DAY TWO OF FAILED INDUCTION. PATIENT REACHING HER END OF COPING AND ASKING FOR PRIMARY LTCS. WAS UNABLE TO GET INTO LABOR WITH AROM, PIT OR CYTOTEC. RISKS AND BENEFITS OF CS DISCUSSED WITH STATED UNDERSTANDING AND CONSENT SIGNED. BROUGHT TO OR. MONITORS APPLIED. SPINAL ANESTHETIC ADMINISTERED WITHOUT COMPLICATION. POSITIONED SUPINE WITH WEDGE UNDER RIGHT FLANK TO DEFLECT UTERUS OFF OF ILIAC VESSELS. BUTLER PLACED. PREPPED AND DRAPED IN STERILE FASHION. TIME OUT DONE. ANESTHETIC LEVEL CHECKED. PFANNENSTIEL SKIN INCISION 3 FINGER BREATHS ABOVE PUBIC SYMPHYSIS BONE. INCISION CARRIED DOWN TO FASCIA. FASCIA NICKED IN MIDLINE AND INCISION EXTENDED FULL EXTENT OF SKIN INCISION. SUPERIOR AND INFERIOR BORDERS OF RECTUS ABDOMINUS MUSCLE DISSECTED AWAY FROM FASCIA USING BOVIE ON CUTTING CURRENT AND BLUNT DISSECTION. THE RECTUS ABDOMINUS MUSCLE WAS , THE PERITONEUM TENTED, INCISED WITH THE METZENBAUM SCISSORS AND MANUALLY OPENED. BLADDER BLADE PLACED. BLADDER FLAP DEVELOPED. BLADDER BLADE REPLACED. UTERINE INCISION MADE WITH SCALPEL TWO INCHES AND MANUALLY WIDENED. RIGHT HAND PLACED AROUND VERTEX WHICH WAS DELIVERED WITH GENTLE FUNDAL PRESSURE. UMBILICAL CORD WRAPPED LOOSELY AROUND CHEST AND REDUCED. SHOULDERS AND TORSO EASILY DELIVERED AND BABY BOY CRYING WITH INITIAL STIMULATION BEFORE CORD CUT. MOUTH AND NARES BULB SUCTIONED. CORD MILKED TOWARDS BABY AND CLAMPED AND CUT. BABY TO RN FOR ASSESSMENT AND CARE. PLACENTA MANUALLY EXTRACTED INTACT NOT SENT TO PATHOLOGY. UTERUS EXTERIORIZED. CLEANED OF CLOT AND DEBRIS. SINGLE LAYER CLOSURE LOCKING STITCHES WITH O VICRYL. BLEEDING POINTS CAUTERIZED. INTERRUPTED SIMPLE STITCHES TIMES TWO FOR HEMOSTASIS. PELVIS IRRIGATED. ALL CLOT AND DEBRIS REMOVED. UTERUS RETURNED TO INTRAPELVIC POSITION. ONE LAP SPONGE REMOVED. LAP SPONGE COUNT AND INSTRUMENT COUNT AND NEEDLE COUNT CORRECT TIMES TWO. PERITONEUM CLOSED WITH RUNNING STITCH O VICRYL. SUBCU CLOSED WITH RUNNING STITCH OF 3 - 0 VICRYL. SKIN CLOSED WITH 4-0 MONOCRYL. EBL 500 CC. PATIENT TOLERATED THE PROCEDURE WELL.
[2024-08-11] MEDS: OXYTOCIN/0.9 % SODIUM CHLORIDE 20 UNITS/1,000 ML PLAST..BAG 125 UNIT IV (16:45)
[2024-08-11] MEDS: KETOROLAC TROMETHAMINE 30 MG/ML VIAL IVP (22:07)
[2024-08-11] MEDS: ACETAMINOPHEN 500 MG TABLET 1000 MG PO (23:34)
[2024-08-12 05:26] VITALS: BP 130/82; PULSE 70; TEMP 36.7
[2024-08-12 06:19] LABS: Hematocrit 26.3 % (36.0-48.0); Hemoglobin 8.5 g/dL (12.0-16.0); Mean Corpuscular HGB Conc 32.3 g/dL (29.9-35.2); Mean Corpuscular Hemoglobin 25.9 pg (26.7-34.0); Mean Corpuscular Volume 80.2 fL (81.0-99.0); Mean Platelet Volume 10.7 fL (9.5-13.5); Platelet Count 290 10^3/uL (150-450); Red Blood Count 3.28 10^6/uL (4.20-5.40); Red Cell Distribution Width 14.4 % (11.0-15.0); White Blood Count 26.9 10^3/uL (4.0-11.0)
[2024-08-12] MEDS: ENOXAPARIN SODIUM 40 MG/0.4 ML SYRINGE SUBQ (06:24)
[2024-08-12] MEDS: ACETAMINOPHEN 500 MG TABLET 1000 MG PO ×2 (06:25→13:59)
[2024-08-12] MEDS: IBUPROFEN 600 MG TABLET PO ×3 (06:25→21:25)
[2024-08-12 06:39] LABS: Lymphocytes Absolute Manual 2.95 10^3/uL (1.20-3.80); Segmented Neut Absolute Manual 22.86 10^3/uL (1.4-6.5)
[2024-08-12 06:40] LABS: Monocytes Absolute Manual 1.07 10^3/uL (0.30-0.80)
[2024-08-12 09:10] VITALS: BP 97/66; PULSE 74; TEMP 36.8; O2SAT 100
--- NOTE | 2024-08-12 10:54 | P.OBPN_ITS ---
OB - PN: Subj Subjective Patient comments: no complaints, pain well controlled, tolerating diet and flatus present [place] infant status: doing well, well and bottle Exam Narrative Exam Narrative: ASKED IF OK TO TAKE IRON SUPPLEMENTS, TOLD YES...DR. SMITH HAD PRESCRIBED, NO ORTHOSTATIC, VOICING NO COMPLAINTS Constitutional Vital Signs, click to edit/add: Last Vital Signs Temp 98.0 F 08/12/24 05:26 Pulse 70 08/12/24 05:26 Resp 14 08/12/24 05:26 BP 130/82 08/12/24 05:26 Pulse Ox 97 08/11/24 18:31 O2 Del Method Room Air 08/12/24 05:26 Documenting provider has reviewed patient's vital signs: yes Common normals: no apparent distress, average body habitus, oriented x3, no limitations, healthy appearing, alert and well nourished General appearance: cooperative, comfortable and anxious (HAS A GENERALIZED ANXIETY DISORDER, REFUSES ANY MEDICATION OR INTERVENTION) HENMT Common normals: normocephalic and head/scalp atraumatic Eye Common normals: PERRL Pupil: accommodation reflex normal Neck & C-Spine Common normals: full ROM and supple Respiratory Common normals: normal respiratory effort Auscultation: clear to auscultation bilaterally Cardio Common normals: regular rate and regular rhythm GI Common normals: Normal to inspection, nondistended, normoactive bowel sounds present and non-tender Common normals: no CVA tenderness Back & Pelvis Common normals: no thoracic nor lumbar tenderness Extremity Common normals: normal to inspection, full ROM and no calf tenderness Neuro Common normals: CN's II-XII intact bilaterally, no focal motor deficits and no sensory deficits noted Motor exam: strength 5/5 throughout Psych Common normals: mental status grossly normal, thought process normal, cooperative, affect normal, speech normal and activity/motor behavior normal Attitude: other (DOES DEMONSTRATE SELF SOOTHING BEHAVIOR FOR MILAGROS IE ROCKING) Activity/motor behavior: appropriate eye contact Speech: normal speech Mood and affect: euthymic mood Thought process: normal thought process Thought content: normal thought content Attention/concentration: attention grossly intact and concentration grossly intact Insight: insight good Judgement: judgment good Results Labs Labs: Short CBC 08/12/24 Range/Units 06:10 WBC 26.9 H (4.0-11.0) 10^3/uL Hgb 8.5 L (12.0-16.0) g/dL Hct 26.3 L (36.0-48.0) % Plt Count 290 (150-450) 10^3/uL Urinary Catheter Management Urinary Catheter Management Urethral: Cath placed during this visit: yes Urethral indwelling: No Insertion date: 08/11/24 Insertion time: 14:40 OB - PN: A/P Assessment and Plan (1) Status post primary low transverse section: Assessment and Plan: FAILED ELECTIVE INDUCTION. CLINICAL EXAM NONFOCAL. DOES HAVE MILAGROS BUT REFUSES INTERVENTION FOR. INCISION DRY AND INTACT. AMBULATING, EATING AND ELIMINATING NORMALLY. BREAST AND BOTTLE FEEDING. BONDING WITH BABY WELL Plan - Vaginal Delivery day: 1 Plan: routine care Time Spent with Patient Time: Total time spent is greater than 50% in coordination of care (as documented) at patient's floor/unit and/or counseling patient: Total time spent with greater than 50% in coordination of care (as documented) at patient's floor/unit and/or counseling patient: less than 15 minutes
[2024-08-12] MEDS: DOCUSATE SODIUM 100 MG CAPSULE PO ×2 (11:00→21:26)
[2024-08-12 13:40] VITALS: BP 131/83; PULSE 95; TEMP 36.8; O2SAT 95
[2024-08-12] MEDS: OXYCODONE HCL/ACETAMINOPHEN 5MG/325MG 2 TAB PO ×2 (18:15→23:39)
--- NOTE | 2024-08-12 18:25 | PC.NURSE ---
Discussed in detail pain management medications and percocet effects and side effects. Patient very anxious, states I took percocet 6 years ago for gall stones and can't remember how they made me feel and I don't like to feel dizzy because it increases my anxiety. Informed if don't like how they made her feel, does not have to take after this. Stated understanding.
[2024-08-12 23:38] VITALS: BP 116/59; PULSE 86; TEMP 36.8
[2024-08-13] MEDS: IBUPROFEN 600 MG TABLET PO ×2 (04:35→13:00)
[2024-08-13] MEDS: ENOXAPARIN SODIUM 40 MG/0.4 ML SYRINGE SUBQ (06:16)
[2024-08-13] MEDS: OXYCODONE HCL/ACETAMINOPHEN 5MG/325MG 2 TAB PO ×2 (08:41→14:55)
[2024-08-13] MEDS: DOCUSATE SODIUM 100 MG CAPSULE PO (08:44)
[2024-08-13 08:48] VITALS: BP 124/60; PULSE 86; TEMP 35.3; TEMP 37.1
--- NOTE | 2024-08-13 10:08 | P.DS_ITS ---
DS: Providers Provider Date of admission: 08/10/24 04:47 Primary care physician: CHANNING ELAINE Admitting clinician: Sukhwinder Garcia Consults: 08/10/24 Consult to Anesthesiology Routine Consulting Provider: Jason De Santiago Reason for consultation: epidural Attending physician on discharge: Lee Ann Brewer DS: Diagnosis Discharge Diagnosis (1) Status post primary low transverse section: Assessment and plan: requesting discharge, cinically appropriate for discharge after dinner, vss normal, performing activities of daily living, incision dry and intact, breast feeding without issue Plan discharge home after dinner, instructions given stated understanding, scripts for percocet and ibuprofen given, has iron already, all questions answered OB - DS: Summary Hospital Course Hospital Course: uncomplicated Time spent discussing smoking cessation with patient: 3 to 10 minutes Peripartum Data - Procedures: Procedures Operation Date: 08/11/24 14:45 Actual Procedure Side Surgeon p Not Applicable Lee Ann Brewer MD Peripartum Data - Vaginal Delivery Procedures: Procedures Operation Date: 08/11/24 14:45 Actual Procedure Side Surgeon p Not Applicable Lee Ann Brewer MD Complications complications: none Infant Delivery method: elective section Gender: male Discharge plan: home Status at Discharge Cognitive/behavioral status at discharge: WNL Functional status at discharge: independent ambulation Overall status at discharge: patient is progressing back to baseline Time Spent with Patient Time attestation: Total time spent providing and/or coordinating discharge services: Time spent: less than 30 minutes Exam Narrative Exam Narrative: REQUESTING DISCHARGE Constitutional Vital Signs, click to edit/add: Last Vital Signs Temp 98.7 F 08/13/24 08:48 Pulse 86 08/13/24 08:48 Resp 16 08/13/24 08:48 BP 124/60 08/13/24 08:48 Pulse Ox 95 08/12/24 13:40 O2 Del Method Room Air 08/13/24 08:30 Documenting provider has reviewed patient's vital signs: yes Common normals: no apparent distress, oriented x3, healthy appearing, alert and well nourished General appearance: cooperative, comfortable and well developed Nutritional appearance: obese Orientation/consciousness: Yes awake HENMT Common normals: normocephalic and head/scalp atraumatic Eye Common normals: PERRL Pupil: accommodation reflex normal Neck & C-Spine Common normals: full ROM Respiratory Common normals: normal respiratory effort Auscultation: clear to auscultation bilaterally Cardio Common normals: regular rate and regular rhythm GI Common normals: Normal to inspection, nondistended, normoactive bowel sounds present, soft to palpation and non-tender Common normals: no CVA tenderness Back & Pelvis Common normals: no thoracic nor lumbar tenderness Neuro Common normals: CN's II-XII intact bilaterally, moves all extremities, no focal motor deficits and no sensory deficits noted Motor exam: strength 5/5 throughout Psych Common normals: mental status grossly normal, thought process normal, cooperative, affect normal and speech normal Discharge Plan Discharge Disposition: Home, Self-Care Condition: Good Assessment: NORMAL CLINICAL EXAM, VSS NORMAL, PERFORMS ADL'S, EATING AND ELIMINATING NORMAL Plan of Treatment: DISCHARGE HOME Discharge Medications: No Action No Known Home Medications Activity: increase activity as tolerated Activity Detail: NO SEX SIX WEEKS, WALKING ONLY EXERCISE SIX WEEKS, ONLY LIFT BABY, MAY CLIMB STAIRS, SPORTS BRA 08/03 IF DECIDES TO STOP , NO DRIVING 4 WEEKS Diet: regular diet Print Language: Citizen Of [place] Patient Instructions: (DC) Activity Restrictions/Additional Instructions: STATED ABOVE Forms: Portal Instructions Follow Up Appointments: WILL NEED TO CALL OFFICE FOR INCISION CHECK WITHIN ONE WEEK Discharge location: HOME
[2024-08-13 16:17] VITALS: BP 147/70; PULSE 109; TEMP 37.1
== END 2024-08-13 16:40 | disposition home or self-care (01) | DRG 540 ==
PROVIDERS: Obstetrics & Gynecology; Admitting Provider Obstetrics & Gynecology; PCP Nurse Practitioner Family; Visit Provider Obstetrics & Gynecology
PROC: 10D00Z1 Extraction of Products of Conception, Low, Open Approach (ICD-10-PCS; CPT 59514; principal; 2024-08-11 14:45)
DX: O99.344 Other mental disorders complicating childbirth (principal); F41.1 Generalized anxiety disorder; O62.0 Primary inadequate contractions; Z3A.39 39 weeks gestation of pregnancy; Z37.0 Single live birth; Z88.8 Allergy status to other drugs, medicaments and biological substances
CPT/HCPCS: 36415; 51702; 59050; 64488; 80307; 85007; 85027; 86850; 86900; 86901; J0131; J0290; J0665; J0690; J1100; J1650; J1885; J2274; J2371; J2590; J2765

== ENCOUNTER 2024-08-22 21:01 | Emergency (ER) | payer OTHER, SELFPAY ==
[2024-08-22 21:04] VITALS: BP 142/70; PULSE 101; TEMP 36.7; O2SAT 98; BMI 46.3
--- NOTE | 2024-08-22 21:22 | ED.GENADUL1 ---
HPI HPI - General Adult General Chief complaint: Wound/Laceration Stated complaint: C SECTION INCISION POST COMPLICATION Time Seen by Provider: 08/22/24 21:15 Source: patient Mode of arrival: walk-in Limitations: no limitations History of Present Illness HPI narrative: 28-year-old female presented to the emergency department for concern about her surgical wound. 12 days ago she had a and just today she noticed that there was an area that was a bit swollen. She has had no open area or drainage or fever. Related Data Previous Rx's ?Medication ?Instructions ?Recorded cephalexin 500 mg capsule 500 mg PO QID 10 days #40 caps 08/22/24 Allergies Allergy/AdvReac Type Severity Reaction Status Date / Time escitalopram (From Lexapro) Allergy Intermediate Anxiety Verified 08/22/24 21:10 Opioid HPI Opioid Management Most Recent Opioid Data: Last Pain Scale 7 08/13/24 14:55 08/13/24 Ur Phencyclidine Scrn Negative (NEGATIVE) 08/10/24 05:05 08/10/24 Review of Systems ROS Narrative A ten point review of systems is negative except as noted above. PFSH PFSH Medical History (Updated 08/22/24 @ 21:20 by Darnell Moran MD) Panic attacks ?F41.0 - Panic disorder [episodic paroxysmal anxiety] (ICD-10) Anxiety ?F41.9 - Anxiety disorder, unspecified (ICD-10) Surgical History (Updated 08/17/24 @ 00:00 by ) Status post primary low transverse section ?Z98.891 - History of uterine scar from previous surgery (ICD-10) No pertinent past surgical history ?Z78.9 - Other specified health status (ICD-10) Family History (Updated 08/10/24 @ 05:15 by Urbano Hicks) Mother Family history of diabetes mellitus Family history of hypertension Sister Family history of cancer Grandmother Family history of myocardial infarction Social History (Updated 08/10/24 @ 07:31 by Urbano Hicks) Within the past year, how often did you have a drink containing alcohol: never Score interpretation: A score less than 3 is consistent with normal alcohol consumption. Smoking status: Never smoker Non-prescribed substance use: denies use Highest level of school completed/degree received: 12th grade, no diploma Little interest or pleasure in doing things: not at all Feeling down, depressed, or hopeless: not at all Exam Narrative Exam Narrative: Nurses note and vital signs reviewed and patient is not hypoxic. General: The patient appears well and in no apparent distress. Patient is resting comfortably on cart. Skin: Warm, dry, no pallor noted. There is no rash noted. Head: Normocephalic, atraumatic Eye: Normal conjunctiva, no drainage Ears, Nose, Mouth, and Throat: oral mucosa is moist. Nares patent. Cardiovascular: Regular Rate and Rhythm Respiratory: Patient is in no distress, no accessory muscle use GI: Surgical wound is healing well. There is no dehiscence or open area. Just to the right of midline there is some minimal erythema and some mild tenderness. It is mildly swollen. Musculoskeletal: No joint swelling Neurological: A&O, normal speech Psychiatric: Cooperative Constitutional Vital Signs, click to edit/add: Last Vital Signs Temp 98.0 F 08/22/24 21:04 Pulse 101 H 08/22/24 21:04 Resp 18 08/22/24 21:04 BP 142/70 H 08/22/24 21:04 Pulse Ox 98 08/22/24 21:04 O2 Del Method Room Air 08/22/24 21:04 Course Vital Signs Vital signs: Vital Signs Temperature 98.0 F 08/22/24 21:04 Pulse Rate 101 H 08/22/24 21:04 Respiratory Rate 18 08/22/24 21:04 Blood Pressure 142/70 H 08/22/24 21:04 Pulse Oximetry 98 08/22/24 21:04 Oxygen Delivery Method Room Air 08/22/24 21:04 Temperature 98.0 F 08/22/24 21:04 Pulse Rate 101 H 08/22/24 21:04 Respiratory Rate 18 08/22/24 21:04 Blood Pressure 142/70 H 08/22/24 21:04 Pulse Oximetry 98 08/22/24 21:04 Oxygen Delivery Method Room Air 08/22/24 21:04 Medical Decision Making MDM Narrative Medical decision making narrative: I suspect that she may be developing a infection. I do not feel that it is at the point where I would open it. She was supposed to have an appointment with Dr. Garcia tomorrow but tonight she accidentally canceled it on her phone when she was attempting to confirm it. She is going to call first thing in the morning to see if she can still make that appointment. Treatment diagnosis and follow-up were discussed with the patient. She was started on Keflex here and prescribed same. Differential Diagnosis Differential Diagnosis: Cellulitis, abscess Discharge Plan Discharge Chief Complaint: Wound/Laceration Clinical Impression: Cellulitis Patient Disposition: Home, Self-Care Time of Disposition Decision: 21:20 Condition: Good Mode of Transportation: Private Vehicle Prescriptions / Home Meds: New cephalexin 500 mg capsule 500 mg PO QID 10 Days Qty: 40 0RF Print Language: Hungarian Instructions: Cellulitis (ED), Warm Compress or Soak (ED) Additional Instructions: Call Dr. Garcia's office when they open in the morning to see if you can still make that appointment. Referrals: CHANNING ELAINE [Primary Care Provider] - 1 week
[2024-08-22] MEDS: CEPHALEXIN 500 MG CAPSULE PO (21:33)
== END 2024-08-22 21:35 | disposition home or self-care (01) ==
PROVIDERS: Emergency Provider Emergency Medicine; PCP Nurse Practitioner Family
DX: O86.00 Infection of obstetric surgical wound, unspecified (principal)
CPT/HCPCS: 99283

== ENCOUNTER 2024-10-08 08:04 | Emergency (ER) | payer OTHER, SELFPAY ==
[2024-10-08 08:08] VITALS: BP 150/92; PULSE 104; TEMP 36.6; O2SAT 97; BMI 457.4
--- OUTSIDE RECORDS SUMMARY | 2024-10-08 08:11 | XMS_ITS | CCD ---
Author Organization 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 Role Phone Jonah York Unavailable Unavailable [...] DR SEAY Admitting Unavailabl e [facility], [facility] Primary Care Unavailable KARASIK ., DR SEAY Consulting Unavailabl e KARASIK ., DR SEAY Attending Unavailabl e KARASIK ., DR SEAY Admitting Unavailabl e [facility], [facility] Primary Care Unavailable KARASIK ., DR SEAY Attending Unavailabl e KARASIK ., DR SEAY Admitting Unavailabl e [facility], [facility] Primary Care Unavailable KARASIK ., DR SEAY Consulting Unavailabl e ZIEBER, DR CHARLIE Aguero Consulting Unavailable CHE[facility], [facility] Primary Care Unavailable REINECK, DR WANDY Silva Attending Unavailabl e REINECK, DR WANDY Silva Admitting Unavailabl e REINECK, DR WANDY Silva Consulting Unavailabl e LEAHY ., YOLANDA Consulting Unavailable Unavailable Primary Care Provider UnavailJONAS Johnson Attending Unavailable SPENCER, ISABELA Attending Unavailable JOSE, JONAS Attending Unavailable SPENCER, ISABELA Attending Unavailable SPENCER, ISABELA Attending Unavailable JOSE, JONAS Attending Unavailable SPENCER, ISABELA Attending Unavailable Allergies Allergy Classification Reported Allergen(s) Allergy Type Date of Onset Reaction(s) Facility (2 sources) Escitalopram Drug Allergy 11-12-2021 [facility] Repository (20 sources) Escitalopram Drug Allergy 11-28-2021 Headache [facility] Work Phone: Medications Current Medications Medication Drug Class(es) Dates Sig (Normalized) Sig (Original) acetaminophen 21.7 mg/ml / dextromethorphan hydrobromide 0.667 mg/ml / phenylephrine hydrochloride 0.333 mg/ml oral solution (20 sources) Uncompetitive I-zgrbhn-K-asparta te Receptor Antagonist, Sigma-1 Agonist, alpha-1 Adrenergic Agonist take 15 mL by mouth every four hours as needed for congestion [id number] AP (Tylenol Cold Multi-Symptom) 5-10-325 mg/15 mL liquid Take 15 mL by mouth every 4 (four) hours if needed for congestion Active amoxicillin 875 mg oral tablet (13 sources) Penicillin-class Antibacterial Start: 07-17-2024 take 1 tablet by mouth in the morning amoxicillin (Amoxil) 875 MG tablet Take 875 mg by mouth in the morning and 875 mg before bedtime. 07/17/2024 Active cephalexin 500 mg oral capsule (2 sources) Cephalosporin Antibacterial Start: 08-23-2024 cephalexin (Keflex) 500 MG capsule Take 500 mg by mouth in the morning and 500 mg at noon and 500 mg in the evening and 500 mg before bedtime. 08/23/2024 Active polysaccharide iron complex 391 mg oral capsule (3 sources) Start: 08-10-2024 End: 09-09-2024 take 1 capsule by mouth once daily iron polysaccharides (ProFe) 391.3 (180 Fe) MG capsule Indications: Low hemoglobin Take 1 capsule (391.3 mg) by mouth Daily 30 capsule 6 08/10/2024 09/09/2024 Active Problems Active Problems Problem Classification Problem Date Documented Da te Episodic/Chronic Adjustment disorders (1 source) Reaction to severe stress, unspecified; Translations: [REACTION TO SEVERE STRESS UNS] Onset: 01-21-2022 Chronic Anxiety disorders (5 sources) Anxiety disorder, unspecified; Translations: [ANXIETY DISORDER UNSPECIFIED] Onset: 01-24-2022 Chronic Female infertility (4 sources) Female infertility associated with anovulation; Translations: [FE INFERTILITY ASSOC W/ANOVULATION] Onset: 12-02-2022 Chronic Other aftercare (2 sources) Surgical follow-up; Translations: [Encounter for follow-up examination after completed treatment for conditions other than malignant neoplasm] 08-28-2024 Episodic Other complications of (2 sources) Excessive growth affecting management of mother; Translations: [Maternal care for excessive growth, unspecified trimester, not applicable or unspecified] 06-27-2024 Episodic Other complications of (2 sources) Abnormal amniotic fluid; Translations: [Other abnormal findings on screening of mother] 07-18-2024 Episodic Other and delivery including normal (20 sources) Encounter for supervision of other normal , second trimester; Translations: [Encounter for test, result positive] Onset: 09-07-2022 Resolved: 08-10-2024 Episodic Other screening for suspected conditions (not [...] UNSPECIFIED; Translations: [COUGH, UNSPECIFIED] Onset: 12-26-2021 Unclassified (20 sources) OB Reminders Onset: 04-11-2024 04-11-2024 Past [...] 04-11-2024 Episodic Other aftercare (1 source) Other assisted (current) drug therapy; Translations: [OTH USP CURRENT DRUG THERAPY] Onset: 01-26-2022 Episodic Other aftercare (1 source) 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; Translations: [USP CURRNT USE ANTICOAGULANTS] Onset: 12-26-2021 Episodic Other [...] [21 weeks gestation of ] 04-11-2024 Episodic Residual codes; unclassified (8 sources) Gestation period, 38 weeks; Translations: [38 weeks gestation of ] Onset: 08-07-2024 Resolved: 08-10-2024 08-07-2024 Episodic Syncope (4 sources) Syncope and collapse; Translations: [SYNCOPE AND COLLAPSE] Onset: 01-30-2022 Episodic Thyroid disorders (1 source) Disorder of thyroid, unspecified; Translations: [DISORDER OF THYROID UNSPECIFIED] Onset: 01-26-2022 Episodic Results Test Name Value Interpretation Reference Range Facility [facility] CBC WITH PLATELET NO DI FFERENTIALon 08-10-2024 Erythrocyte distribution width (RBC) [Ratio] 14.4 % 11.0 - 15.0 % [facility] Hematocrit (Bld) [Volume fraction] 30.7 % Low 36.0 - 48.0 % [facility] Hemoglobin (Bld) [Mass/Vol] 9.8 g/dL Low 12.0 - 16.0 g/dL [facility] Interpretation and review of laboratory results Abnormal [facility] MCH (RBC) [Entitic mass] 25.7 pg Low 26.7 - 34.0 pg [facility] MCHC (RBC) [Mass/Vol] 31.9 g/dL 29.9 - 35.2 g/dL [facility] MCV (RBC) [Entitic vol] 80.4 fL Low 81.0 - 99.0 fL [facility] Platelet mean volume (Bld) [Entitic vol] 11.6 fL 9.5 - 13.5 fL [facility] TBH PLT 277 [facility] TB RBC 3.82 Low [facility] TB WBC 13.3 High [facility] Urinalysis macro (dipstick) panel (U)on 08-01-2024 Bilirubin, UA Negative Negative - 4(70) +++ mg/dL [facility] Blood, UA Negative Negative - 50 Shahbaz/mcL [facility] Clarity, UA Clear [facility] Color, UA Yellow [facility] Glucose, UA Negative Negative - 1999(110) ++++ mg/dL [facility] Interpretation and review of laboratory results Abnormal [facility] Ketones, UA Negative Negative - 160(16) ++++ mg/dL [facility] Leukocytes, UA Trace Negative - 500+++ Edward/mcL [facility] Nitrite, UA Negative Negative - Positive [facility] pH, UA 7 5 - 9 [facility] Protein, UA Negative Negative - 1999(20) ++++ mg/dL [facility] Spec Grav, UA 1.01 1 - 1.03 [facility] Urobilinogen, UA 0.2 0.2 - 12 mg/dL [facility] MLR HEMOGLOBIN A1Con 024 Glucose [Mass/Vol] 111 mg/dL [facility] HbA1c (Bld) [Mass fraction] 5.5 % 4.5 - 6.2 % [facility] Comment on above: ADA RECOMMENDED LIMI T 4.0 - 6.0 ADA THERAPEUTIC TARGET < 7.0 ACTION SUGGESTED > 7.0 [facility] Urinalysis macro (dipstick) panel (U)on 07-18-2024 Bilirubin, UA Negative Negative - 4(70) +++ mg/dL [facility] Blood, UA Negative Negative - 50 Shahbaz/mcL [facility] Clarity, UA Clear [facility] Color, UA Yellow [facility] Glucose, UA Negative Negative - 1999(110) ++++ mg/dL [facility] Interpretation and review of laboratory results Abnormal [facility] Ketones, UA Negative Negative - 160(16) ++++ mg/dL [facility] Leukocytes, UA Trace Negative - 500+++ Edward/mcL [facility] Nitrite, UA Negative Negative - Positive [facility] pH, UA 7 5 - 9 [facility] Protein, UA Negative Negative - 1999(20) ++++ mg/dL [facility] Spec Grav, UA 1.015 1 - 1.03 [facility] Urobilinogen, UA 0.2 0.2 - 12 mg/dL [facility] URETHRITIS/DISCHARGE PLUS VA GINITIS (HTRX)on 04-12-2024 ATOPOBIUM VAGINAE 19.927 Abnormal [facility] ATOPOBIUM VAGINAE Detected Abnormal [facility] BVAB 2,3 (BACTERIAL VAGINOSIS ASSOCIATED BACTERIA 2, 3); MOBILUNCUS SPP 0.000 [facility] BVAB 2,3 (BACTERIAL VAGINOSIS ASSOCIATED BACTERIA 2, 3); MOBILUNCUS SPP Not detected [facility] MOY ALBICANS, PARAPSILOSIS, TROPICALIS 0.000 [facility] MOY ALBICANS, PARAPSILOSIS, TROPICALIS Not detected [facility] MOY GLABRATA 0.000 [facility] MOY GLABRATA Not detected [facility] MOY KRUSEI 0.000 [facility] MOY KRUSEI Not detected [facility] CHLAMYDIA TRACHOMATIS 0.000 [facility] CHLAMYDIA TRACHOMATIS Not detected [facility] GARDNERELLA VAGINALIS 20.450 Abnormal [facility] GARDNERELLA VAGINALIS Detected Abnormal [facility] Interpretation and review of laboratory results Abnormal [facility] MEGASPHAERA (TYPES 1, 2) 0.000 [facility] MEGASPHAERA (TYPES 1, 2) Not detected [facility] MYCOPLASMA GENITALIUM 0.000 [facility] MYCOPLASMA GENITALIUM Not detected [facility] NEISSERIA GONORRHOEAE 0.000 [facility] NEISSERIA GONORRHOEAE Not detected [facility] TET B, TET M 18.992 Abnormal [facility] TET B, TET M Detected Abnormal [facility] TRICHOMONAS VAGINALIS 0.000 [facility] TRICHOMONAS VAGINALIS Not detected [facility] ALL CBC WITH AUTO DIFFon BASOPHILS ABSOLUTE AUTO 0.0 [facility] Basophils/100 WBC (Bld) 0.2 % 0.2 - 2.0 % [facility] Eosinophils/100 WBC (Bld) 0.9 % 0.9 - 7.0 % [facility] Erythrocyte distribution width (RBC) [Ratio] 13.4 % 11.0 - 15.0 % [facility] Hematocrit (Bld) [Volume fraction] 33.8 % Low 36.0 - 48.0 % [facility] Hemoglobin (Bld) [Mass/Vol] 11.3 g/dL Low 12.0 - 16.0 g/dL [facility] IMMATURE GRANULOCYTES ABS AUTO 0.11 High [facility] Immature granulocytes/100 WBC (Bld) 0.8 % High 0.0 - 0.5 % [facility] Interpretation and review of laboratory results Abnormal [facility] LYMPHOCYTES ABSOLUTE AUTO 2.3 [facility] Lymphocytes/100 WBC (Bld) 17.5 % Low 20.5 - 60.0 % [facility] MCH (RBC) [Entitic mass] 27.2 pg 26.7 - 34.0 pg [facility] MCHC (RBC) [Mass/Vol] 33.4 g/dL 29.9 - 35.2 g/dL [facility] MCV (RBC) [Entitic vol] 81.3 fL 81.0 - 99.0 fL [facility] MONOCYTES ABSOLUTE AUTO 0.7 [facility] Monocytes/100 WBC (Bld) 5.4 % 1.7 - 12.0 % [facility] NEUTROPHILS ABSOLUTE AUTO 10.0 High [facility] Neutrophils/100 WBC (Bld) 75.2 % High 43.0 - 75.0 % [facility] Platelet mean volume (Bld) [Entitic vol] 10.7 fL 9.5 - 13.5 fL [facility] TBH EO # 0.1 [facility] TBH PLT 262 [facility] TB RBC 4.16 Low [facility] WBC 13.3 High [facility] Urinalysis macro (dipstick) panel (U)on 04-11-2024 Bilirubin, UA Negative Negative - 4(70) +++ mg/dL [facility] Blood, UA Negative Negative - 50 Shahbaz/mcL [facility] Clarity, UA Clear [facility] Color, UA Yellow [facility] Glucose, UA Negative Negative - 1999(110) ++++ mg/dL [facility] Interpretation and review of laboratory results Normal [facility] Ketones, UA Negative Negative - 160(16) ++++ mg/dL [facility] Leukocytes, UA Negative Negative - 500+++ Edward/mcL [facility] Nitrite, UA Negative Negative - Positive [facility] pH, UA 6.5 5 - 9 [facility] Protein, UA Negative Negative - 1999(20) ++++ mg/dL [facility] Spec Grav, UA 1.015 1 - 1.03 [facility] Urobilinogen, UA 0.2 0.2 - 12 mg/dL [facility] GLUCOSE - 1HRon 12-10-2022 Glucose [Mass/Vol] 98 mg/dL Normal 74-106 [facility] Comment on above: Performed By: #### G LU1 #### [facility] [address] [place] [address] Dr. Sara Matos HEMOGRAM AND PLATELon 2022 Hematocrit (Bld) [Volume fraction] 33.8 % Critically low 36.0-48.0 [facility] Comment on above: Performed By: #### T SH #### [facility] [address] [place] [address] Dr. Sara Matos Hemoglobin (Bld) [Mass/Vol] 11.1 g/dL Critically low 12.0-16.0 [facility] Comment on above: Performed By: #### T SH #### [facility] [address] [place] [address] Dr. Sara Matos MCH (RBC) [Entitic mass] 28.6 pg Normal 26.7-34.0 [facility] Comment on above: Performed By: #### T SH #### [facility] [address] [place] [address] Dr. Sara Matos MCHC (RBC) [Mass/Vol] 32.8 g/dL Normal 29.9-35.2 [facility] Comment on above: Performed By: #### T SH #### [facility] [address] [place] [address] Dr. Sara Matos MCV (RBC) [Entitic vol] 87.1 fL Normal 81.0-99.0 [facility] Comment on above: Performed By: #### T SH #### [facility] [address] [place] [address] Dr. Sara Matos PLT 188 103/ul Normal 150-450 [facility] Comment on above: Performed By: #### T SH #### [facility] [address] [place] [address] Dr. Sara Matos RBC 3.88 106/ul Critically low 4.20-5.40 [facility] Comment on above: Performed By: #### T SH #### [facility] [address] [place] [address] Dr. Sara Matos WBC 9.8 103/ul Normal 4.0-11.0 [facility] Comment on above: Performed By: #### T #### [facility] [address] [address] [address] Sara Matos US PREG ANATOMY SINGLEon [...] LA O Date: 2022-12-02 15:25 Normal [facility] HEP B SURFACE ANTIGEN SCREEN on 11-18-2022 HBsAg Screen Negative Normal Negative [facility] Comment on above: Performed By: #### E JAIME SINHA #### [facility] [address] [place], [place] [address] Dr. Sara Matos HEPATITIS C VIRUS AB W/ REFL EX QUANTon 11-18-2022 HCV AB Non-Reactive Normal Non Reactive [facility] Comment on above: Performed By: #### E RUR, UMICRO #### [facility] [address] [place] [address] Dr. Sara Matos Interpretation: Comment Normal [facility] Comment on above: Result Comment: Not infected with HCV unless early or acute infection is suspected (which may be delayed in an immunocompromised individual), or other evidence exists to indicate HCV infection. Performed By: #### E RUR, UMICRO #### [facility] [address] [place] [address] Dr. Sara Matos HIV 1 AND 2 WITH REFLEXon HIV Screen 4th Generation wRfx Non-Reactive Normal Non Reactive [facility] Comment on above: Result Comment: HIV Negative HIV-1/HIV-2 antibodies and HIV-1 p24 antigen were NOT detected. There is no laboratory evidence of HIV infection. Performed By: #### E LONDONR, UMJONIRO #### [facility] [address] [place] [address] Dr. Sara Matos RPR QUANTon 11-18-2022 Rapid Plasma Reagin, Quant Non-Reactive Normal NonRea<1:1 [facility] Comment on above: Result Comment: Plea se Note: This test does not meet current guidelines for screening and diagnosis of syphilis. This test is intended for following treatment response in patients being treated for syphilis infection. To screen for syphilis infection, a reflex cascade that includes both RPR and a treponema-specific assay should be utilized, such as Treponema pallidum (Syphilis) Screening [place] (833147) or Rapid Plasma Reagin (RPR) Test With Reflex to Quantitative RPR and Confirmatory Treponema pallidum Antibodies (389873). Performed By: #### T SH #### [facility] [address] [place] [address] Dr. Sara Matos RUBELLA AB IGGon 11-18-2022 Rubella Antibodies, IgG 3.67 index Normal Immune >0.99 [facility] Comment on above: Result Comment: Non- immune <0.90 Equivocal 0.90 - 0.99 Immune >0.99 Performed By: #### T SH #### [facility] [address] [place] [address] Dr. Sara Matos BOX TEST SENT OUTon 11-18-19 23 SENT TO REF LAB 11/17/2022 Normal [facility] Comment on above: Performed By: #### T SH #### [facility] [address] [place] [address] Dr. Sara Matos CBC AUTO DIFFon 11-17-2022 BASO # 0.0 103/ul Normal 0.0-0.1 [facility] Comment on above: Performed By: #### KACY GODWINRO #### [facility] [address] [place] [address] Dr. Sara Matos Basophils/100 WBC (Bld) 0.4 % Normal 0.2-2.0 [facility] Comment on above: Performed By: #### FLORENTINO GODWINICRO #### [facility] [address] [place] [address] Dr. Sara Matos EO # 0.1 103/ul Normal 0.0-0.7 [facility] Comment on above: Performed By: #### FLORENTINO GODWINICRO #### [facility] [address] [place] [address] Dr. Sara Matos Eosinophils/100 WBC (Bld) 1.3 % Normal 0.9-7.0 [facility] Comment on above: Performed By: #### FLORENTINO GODWINICRO #### [facility] [address] [place] [address] Dr. Sara Matos Erythrocyte distribution width (RBC) [Ratio] 12.3 % Normal 11.0-15.0 [facility] Comment on above: Performed By: #### Sha SINHA, UMICRO #### [facility] [address] [place] [address] Dr. Sara Matos Hematocrit (Bld) [Volume fraction] 33.6 % Critically low 36.0-48.0 [facility] Comment on above: Performed By: #### Sha SINHA, UMICRO #### [facility] [address] [place] [address] Dr. Sara Matos Hemoglobin (Bld) [Mass/Vol] 11.3 g/dL Critically low 12.0-16.0 [facility] Comment on above: Performed By: #### FLORENTINO GODWINICRO #### [facility] [address] [place] [address] Dr. Sara Matos IG # 0.04 10e3/ul Critically high 0.00-0.03 [facility] Comment on above: Performed By: #### Sha SINHA UMICRO #### [facility] [address] [place] [address] Dr. Sara Matos IG % 0.4 % Normal 0.0-0.5 [facility] Comment on above: Performed By: #### Sha SINHA UMICRO #### [facility] [address] [place] [address] Dr. Sara Matos LYMPH # 1.7 103/ul Normal 1.2-3.8 [facility] Comment on above: Performed By: #### FLORENTINO GODWINICRO #### [facility] [address] [place] [address] Dr. Sara Matos Lymphocytes/100 WBC (Bld) 16.7 % Critically low 20.5-60.0 [facility] Comment on above: Performed By: #### FLORENTINO GODWINICRO #### [facility] [address] [place] [address] Dr. Sara Matos MANUAL DIFF REQ NO Normal [facility] Comment on above: Performed By: #### FLORENTINO GODWINICRO #### [facility] [address] [place] [address] Dr. Sara Matos MCH (RBC) [Entitic mass] 28.8 pg Normal 26.7-34.0 [facility] Comment on above: Performed By: #### Sha SINHA UMICRO #### [facility] [address] [place] [address] Dr. Sara Matos MCHC (RBC) [Mass/Vol] 33.6 g/dL Normal 29.9-35.2 [facility] Comment on above: Performed By: #### Sha SINHA UMICRO #### [facility] [address] [place], [place] [id number] Dr. Sara Matos MCV (RBC) [Entitic vol] 85.5 fL Normal 81.0-99.0 [facility] Comment on above: Performed By: #### FLORENTINO GODWINICRO #### [facility] [address] [place] [address] Dr. Sara Matos MONO # 0.6 103/ul Normal 0.3-0.8 [facility] Comment on above: Performed By: #### Sha SINHA UMICRO #### [facility] [address] [place] [address] Dr. Sara Matos Monocytes/100 WBC (Bld) 5.9 % Normal 1.7-12.0 [facility] Comment on above: Performed By: #### Sha SINHA UMICRO #### [facility] [address] [place] [address] Dr. Sara Matos NEUT # 7.7 103/ul Critically high 1.4-6.5 [facility] Comment on above: Performed By: #### Sha SINHA ICRO #### [facility] [address] [place] [address] Dr. Sara Matos Neutrophils/100 WBC (Bld) 75.3 % Critically high 43.0-75.0 [facility] Comment on above: Performed By: #### Sha SINHA UMICRO #### [facility] [address] [place] [address] Dr. Sara Matos Platelet mean volume (Bld) [Entitic vol] 11.2 fL Normal 9.5-13.5 [facility] Comment on above: Performed By: #### Sha SINHA UMICRO #### [facility] [address] [place] [address] Dr. Sara Matos PLT 217 103/ul Normal 150-450 [facility] Comment on above: Performed By: #### Sha SINHA, UMICRO #### [facility] [address] [place] [address] Dr. Sara Matos RBC 3.93 106/ul Critically low 4.20-5.40 [facility] Comment on above: Performed By: #### KACY GODWINRO #### [facility] [address] [address] [address] Sara Matos WBC 10.2 103/ul Normal 4.0-11.0 [facility] Comment on above: Performed By: #### E KACY SINHARO #### [facility] [address] [address] [address] Sara Matos CULTURE URINEon 11-17-2022 CULTURE URINE Culture Observations : HEAVY GROWTH OF MIXED GENITAL JP. NO POTENTIAL PATHOGENS SEEN. Normal [facility] Comment on above: Performed By: #### KACY GODWINRO #### [facility] [address] [place] [address] Dr. Sara Matos DRUG SCREEN RAPID (URINE)on 11-17-2022 AMP Negative Normal NEGATIVE [facility] Comment on above: Performed By: #### P REGU, DRUGRPD #### [facility] [address] [place] [address] Dr. Sara Matos BAR Negative Normal NEGATIVE [facility] Comment on above: Performed By: #### P REGU, DRUGRPD #### [facility] [address] [address] [address] Sara Matos BUP Negative Normal NEGATIVE [facility] Comment on above: Performed By: #### P REGU, DRUGRPD #### [facility] [address] [place] [address] Dr. Sara Matos BZO Negative Normal NEGATIVE [facility] Comment on above: Performed By: #### P REGU, DRUGRPD #### [facility] [address] [place] [address] Dr. Sara Matos COLLEEN Negative Normal NEGATIVE [facility] Comment on above: Performed By: #### P REGU, DRUGRPD #### [facility] [address] [place] [address] Dr. Sara Matos CUT-OFFS SEE BELOW Normal [facility] Comment on above: Result Comment: AMP (Amphetamine): [...] Performed By: #### P REGU, DRUGRPD #### [facility] [address] [place] [address] Dr. Sara Matos DRUG CUT HEADER DRUG CLASS TEST SYSTEM CUT-OFF CONCENTRATIONS ARE FOLLOWS: Normal [facility] [facility] Comment on above: Performed By: #### P REGU, DRUGRPD #### [facility] [address] [place] [address] Dr. Sara Matos mAMP Negative Normal NEGATIVE [facility] Comment on above: Performed By: #### P REGU, DRUGRPD #### [facility] [address] [place] [address] Dr. Sara Matos MTD Negative Normal NEGATIVE [facility] Comment on above: Performed By: #### P REGU, DRUGRPD #### [facility] [address] [place] [address] Dr. Sara Matos OPI Negative Normal NEGATIVE [facility] Comment on above: Performed By: #### P REGU, DRUGRPD #### [facility] [address] [place] [address] Dr. Sara Matos OXY Negative Normal NEGATIVE [facility] Comment on above: Performed By: #### P REGU, DRUGRPD #### [facility] [address] [place] [address] Dr. Sara Matos PCP Negative Normal NEGATIVE [facility] Comment on above: Performed By: #### P REGU, DRUGRPD #### [facility] [address] [place] [address] Dr. Sara Matos PPX Negative Normal NEGATIVE [facility] Comment on above: Performed By: #### P REGU, DRUGRPD #### [facility] [address] [address] [address] Sara Matos TCA Negative Normal NEGATIVE [facility] Comment on above: Performed By: #### P REGU, DRUGRPD #### [facility] [address] [address] [address] Sara Matos THC Negative Normal NEGATIVE [facility] Comment on above: Performed By: #### P REGU, DRUGRPD #### [facility] [address] [address] [address] Sara Matos GLYCOHEMOGLOBIN A1Con 2022 ADA RECOMMENDATION SEE BELOW Normal [facility] Comment on above: Result Comment: ADA RECOMMENDED LIMIT 4.0 - 6.0 ADA THERAPEUTIC TARGET < 7.0 ACTION SUGGESTED > 7.0 Performed By: #### A 1C #### [facility] [address] [place] [address] Dr. Sara Matos Glucose [Mass/Vol] 85 mg/dL Normal [facility] Comment on above: Performed By: #### A 1C #### [facility] [address] [address] [address] Sara Matos HbA1c (Bld) [Mass fraction] 4.6 % Normal 4.5-6.2 [facility] Comment on above: Performed By: #### A 1C #### [facility] [address] [place] [address] Dr. Sara Matos URon 11-17-2022 , QUAL Positive Abnormal NEGATIVE [facility] Comment on above: Performed By: #### P REGU, DRUGRPD #### [facility] [address] [address] [address] Sara Matos TYPE AND SCREENon 11-17-2022 TYPE AND SCREEN Negative Normal [facility] Comment on above: Performed By: #### JAIME GODWIN #### [facility] [address] [address] [address] Sara Matos US PREG DATING >14WEEKSon [...] LA O Date: 2022-09-07 10:38 Normal [facility] CHLAMYDIA/GONOCOCCUS DEENA (SW AB/URINE/PAPon 06-10-2022 Chlamydia trachomatis, DEENA Negative Normal Negative [facility] Comment on above: Performed By: #### T SH #### [facility] [address] [place] [address] Dr. Sara Matos Neisseria gonorrhoeae, DEENA Negative Normal Negative [facility] Comment on above: Performed By: #### T SH #### [facility] [address] [place] [address] Dr. Sara Matos GENITAL CULTUREon 06-09-2022 Genital Culture, Routine NOBACT Normal [facility] Comment on above: Result Comment: [...] Performed By: #### E JAIME SINHA #### [facility] [address] [place] [address] Dr. Sara Matos ER URINE PROFILEon Bilirubin Ql (U) Negative Normal NEGATIVE [facility] Comment on above: Performed By: #### Sha SINHA UMICRO #### [facility] [address] [place] [address] Dr. Sara Matos Clarity (U) CLEAR Normal CLEAR [facility] Comment on above: Performed By: #### Sha SINHA UMICRO #### [facility] [address] [place] [address] Dr. Sara Matos Color (U) LT. YELLOW Normal YELLOW [facility] Comment on above: Performed By: #### Sha SINHA UMICRO #### [facility] [address] [place] [address] Dr. Sara Matos ERUAHD A micrscopic examination will be performed if indicated. Normal [facility] Comment on above: Performed By: #### Sha SINHA UMICRO #### [facility] [address] [place] [address] Dr. Sara Matos Glucose Ql (U) Negative Normal NEGATIVE [facility] Comment on above: Performed By: #### Sha SINHA UMICRO #### [facility] [address] [place] [address] Dr. Sara Matos Hemoglobin Ql (U) Negative Normal NEGATIVE [facility] Comment on above: Performed By: #### Sha SINHA UMICRO #### [facility] [address] [place] [address] Dr. Sara Matos Ketones Ql (U) Negative Normal NEGATIVE [facility] Comment on above: Performed By: #### Sha SINHA UMICRO #### [facility] [address] [place] [address] Dr. Sara Matos LEUKOCYTES TRACE Abnormal NEGATIVE [facility] Comment on above: Performed By: #### Sha SINHA UMICRO #### [facility] [address] [place] [address] Dr. Sara Matos Nitrite Ql (U) Negative Normal NEGATIVE [facility] Comment on above: Performed By: #### Sha SINHA UMICRO #### [facility] [address] [place] [address] Dr. Sara Matos pH (U) 6.0 [pH] Normal 5-9 [facility] Comment on above: Performed By: #### Sha SINHA UMICRO #### [facility] [address] [place] [address] Dr. Sara Matos SPEC GRAVITY 1.015 Normal 1.005-<=1.025 [facility] Comment on above: Performed By: #### Sha SINHA UMICRO #### [facility] [address] [place] [address] Dr. Sara Matos UA PROTEIN Negative Normal NEGATIVE/ TRACE [facility] Comment on above: Performed By: #### Sha SINHA UMICRO #### [facility] [address] [place] [address] Dr. Sara Matos UR MICRO IND INDICATED Normal [facility] Comment on above: Performed By: #### Sha SINHA UMICRO #### [facility] [address] [place] [address] Dr. Sara Matos Urobilinogen Qn (U) 0.2 {Ana'U}/dL Normal 0.2 - 1. 0 [facility] Comment on above: Performed By: #### Sha SINHA UMICRO #### [facility] [address] [place] [address] Dr. Sara Matos URon 06-06-2022 , QUAL Negative Normal NEGATIVE [facility] Comment on above: Performed By: #### P REGU #### [facility] [address] [place] [address] Dr. Sara Matos URINE MICROSCOPIC ONLYon BACTERIA NONE SEEN Normal NONE SEEN [facility] Comment on above: Performed By: #### Sha SINHA UMICRO #### [facility] [address] [place] [address] Dr. Sara Matos Bacteria identified Cx Nom (U) NOT INDICATED Normal [facility] Comment on above: Performed By: #### Sha SINHA UMICRO #### [facility] [address] [place] [address] Dr. Sara Matos CAST NONE SEEN Normal NONE SEEN [facility] Comment on above: Performed By: #### E RUR, UMICRO #### [facility] [address] [address] [address] Sara Matos Crystals LM Nom (Urine sed) NONE SEEN Normal NONE SEEN [facility] Comment on above: Performed By: #### E RUR, UMICRO #### [facility] [address] [place] [address] Dr. Sara Matos Epithelial cells LM Ql (Urine sed) FEW Abnormal NONE SEEN /RARE [facility] Comment on above: Performed By: #### E RUR, UMICRO #### [facility] [address] [place] [address] Dr. Sara Matos MUCOUS NONE SEEN Normal NONE SEEN [facility] Comment on above: Performed By: #### E RUR, UMICRO #### [facility] [address] [place] [address] Dr. Sara Matos RBC NONE SEEN Abnormal 0-2 [facility] Comment on above: Performed By: #### Sha SINHA, UMICRO #### [facility] [address] [place] [address] Dr. Sara Matos WBC 0-2 Abnormal NONE SEEN [facility] Comment on above: Performed By: #### E BHARATH, UMICRO #### [facility] [address] [place] [address] Dr. Sara Matos WET PREPon 06-06-2022 CLUE CELLS NONE SEEN Normal NONE SEEN [facility] Comment on above: Performed By: #### T SH #### [facility] [address] [place] [address] Dr. Sara Matos FUNGAL ELEMENTS NONE SEEN Normal NONE SEEN [facility] Comment on above: Performed By: #### T SH #### [facility] [address] [place] [address] Dr. Sara Matos RBC -WET PREP NONE SEEN Normal NONE SEEN The [facility] Comment on above: Performed By: #### T SH #### [facility] [address] [place] [address] Dr. Sara Matos TRICHOMONAS NONE SEEN Normal NONE SEEN [facility] Comment on above: Performed By: #### T SH #### [facility] [address] [address] [address] Sara Matos WBC- WET PREP FEW Abnormal NONE SEEN The [facility] Comment on above: Performed By: #### T SH #### [facility] [address] [address] [address] Sara Matos WET PREP BACTERIA NONE SEEN Normal NONE SEEN [facility] Comment on above: Performed By: #### T SH #### [facility] [address] [address] [address] Sara Matos Abstracton 04-25-2022 Abstract [id number] Astrid Montague 1995 Date Provider Department Center 04/25/2022 LILIAN AGUIRRE DAISY [facility] Family History Problem Relation Age of Onset Heart attack Maternal Grandmother Coronary artery disease Maternal Grandmother Family Status - Relation Status Age at Maternal Grandmother Paternal Grandmother Normal [facility] Abstracton 04-22-2022 Abstract [id number] Astrid Montague 1995 Date Provider Department Center 04/22/2022 YURIDIA CARO DAISY [facility] Family History Problem Relation Age of Onset Heart attack Paternal Grandmother Family Status - Relation Status Age at Paternal Grandmother Normal [facility] US GUY DOP LEG LTon 04-01-20 [...] LA O Date: 2022-04-01 17:05 Normal [facility] METANEPHRINES PLASMA FREEon 02-04-2022 Metanephrine, Pl 13.7 pg/mL Normal 0.0-88.0 [facility] Comment on above: Performed By: #### P REGU, DRUGRPD #### [facility] [address] [address] [address] Sara Matos Normetanephrine, Pl 45.6 pg/mL Normal 0.0-210.1 [facility] Comment on above: Performed By: #### P URIEL, DRUGRPD #### [facility] [address] [place] [address] Dr. Sara Matos CARDIAC ANTONY ADMITon 022 CK [Catalytic activity/Vol] 67 U/L Normal 26-192 [facility] Comment on above: Performed By: #### T SH #### [facility] [address] [place] [address] Dr. Sara Matos CK.MB [Mass/Vol] 0.99 ng/mL Normal <=3.60 [facility] Comment on above: Performed By: #### T SH #### [facility] [address] [place] [address] Dr. Sara Matos HSTROP 4.7 pg/mL Normal 4.0-51.3 [facility] Comment on above: Result Comment: CUT- OFF POINTS HAVE BEEN ESTABLISHED BASED ON THE FOURTH UNIVERSAL DEFINITIONS OF MYOCARDIAL INFARCTION. THE UPPER REFERENCE LIMIT (URL) OF TROPONIN, DEFINED THE 99TH PERCENTILE OF cTnI DISTRIBUTION IN A REFERENCE POPULATION, HAS BEEN CONFIRMED THE DECISION THRESHOLD FOR [place] DIAGNOSIS. Performed By: #### T SH #### [facility] [address] [place] [address] Dr. Sara Matos ELENA 34 ng/mL Normal 9-82 [facility] Comment on above: Performed By: #### T SH #### [facility] [address] [place] [address] Dr. Sara Matos CBC AUTO DIFFon 01-30-2022 BASO # 0.1 103/ul Normal 0.0-0.1 [facility] Comment on above: Performed By: #### T SH #### [facility] [address] [place] [address] Dr. Sara Matos Basophils/100 WBC (Bld) 0.8 % Normal 0.2-2.0 [facility] Comment on above: Performed By: #### T SH #### [facility] [address] [place] [address] Dr. Sara Matos EO # 0.1 103/ul Normal 0.0-0.7 [facility] Comment on above: Performed By: #### T SH #### [facility] [address] [place] [address] Dr. Sara Matos Eosinophils/100 WBC (Bld) 0.6 % Critically low 0.9-7.0 [facility] Comment on above: Performed By: #### T SH #### [facility] [address] [place] [address] Dr. Sara Matos Erythrocyte distribution width (RBC) [Ratio] 13.6 % Normal 11.0-15.0 [facility] Comment on above: Performed By: #### T SH #### [facility] [address] [place] [address] Dr. Sara Matos Hematocrit (Bld) [Volume fraction] 40.4 % Normal 36.0-48.0 [facility] Comment on above: Performed By: #### T SH #### [facility] [address] [place] [address] Dr. Sara Matos Hemoglobin (Bld) [Mass/Vol] 13.0 g/dL Normal 12.0-16.0 [facility] Comment on above: Performed By: #### T SH #### [facility] [address] [place] [address] Dr. Sara Matos IG # 0.03 10e3/ul Normal 0.00-0.03 [facility] Comment on above: Performed By: #### T SH #### [facility] [address] [place] [address] Dr. Sara Matos IG % 0.3 % Normal 0.0-0.5 [facility] Comment on above: Performed By: #### T SH #### [facility] [address] [place] [address] Dr. Sara Matos LYMPH # 2.6 103/ul Normal 1.2-3.8 [facility] Comment on above: Performed By: #### T SH #### [facility] [address] [place] [address] Dr. Sara Matos Lymphocytes/100 WBC (Bld) 26.5 % Normal 20.5-60.0 [facility] Comment on above: Performed By: #### T SH #### [facility] [address] [place] [address] Dr. Sara Matos MANUAL DIFF REQ NO Normal [facility] Comment on above: Performed By: #### T SH #### [facility] [address] [place] [address] Dr. Sara Matos MCH (RBC) [Entitic mass] 26.9 pg Normal 26.7-34.0 [facility] Comment on above: Performed By: #### T SH #### [facility] [address] [place] [address] Dr. Sara Matos MCHC (RBC) [Mass/Vol] 32.2 g/dL Normal 29.9-35.2 [facility] Comment on above: Performed By: #### T SH #### [facility] [address] [place] [address] Dr. Sara Matos MCV (RBC) [Entitic vol] 83.6 fL Normal 81.0-99.0 [facility] Comment on above: Performed By: #### T SH #### [facility] [address] [place] [address] Dr. Sara Matos MONO # 0.6 103/ul Normal 0.3-0.8 [facility] Comment on above: Performed By: #### T SH #### [facility] [address] [place] [address] Dr. Sara Matos Monocytes/100 WBC (Bld) 6.4 % Normal 1.7-12.0 [facility] Comment on above: Performed By: #### T SH #### [facility] [address] [place] [address] Dr. Sara Matos NEUT # 6.3 103/ul Normal 1.4-6.5 [facility] Comment on above: Performed By: #### T SH #### [facility] [address] [place] [address] Dr. Sara Matos Neutrophils/100 WBC (Bld) 65.4 % Normal 43.0-75.0 [facility] Comment on above: Performed By: #### T SH #### [facility] [address] [place] [address] Dr. Sara Matos Platelet mean volume (Bld) [Entitic vol] 11.8 fL Normal 9.5-13.5 [facility] Comment on above: Performed By: #### T SH #### [facility] [address] [place] [address] Dr. Sara Matos PLT 218 103/ul Normal 150-450 [facility] Comment on above: Performed By: #### T SH #### [facility] [address] [place] [address] Dr. Sara Matos RBC 4.83 106/ul Normal 4.20-5.40 [facility] Comment on above: Performed By: #### T SH #### [facility] [address] [place] [address] Dr. Sara Matos WBC 9.6 103/ul Normal 4.0-11.0 [facility] Comment on above: Performed By: #### T SH #### [facility] [address] [place] [address] Dr. Sara Matos ER URINE PROFILEon 2 Bilirubin Ql (U) Negative Normal NEGATIVE [facility] Comment on above: Performed By: #### KACY GODWINRO #### [facility] [address] [place] [address] Dr. Sara Matos Clarity (U) CLEAR Normal CLEAR [facility] Comment on above: Performed By: #### KACY GODWINRO #### [facility] [address] [place] [address] Dr. Sara Matos Color (U) LT. YELLOW Normal YELLOW [facility] Comment on above: Performed By: #### KACY GODWINRO #### [facility] [address] [place] [address] Dr. Sara BUCKNER A micrscopic examination will be performed if indicated. Normal [facility] Comment on above: Performed By: #### Sha SINHA UMICRO #### [facility] [address] [address] [address] Sara Matos Glucose Ql (U) Negative Normal NEGATIVE [facility] Comment on above: Performed By: #### Sha SINHA UMICRO #### [facility] [address] [address] [address] Sara Matos Hemoglobin Ql (U) LARGE Abnormal NEGATIVE [facility] Comment on above: Performed By: #### Sha SINHA UMICRO #### [facility] [address] [address] [address] Sara Matos Ketones Ql (U) Negative Normal NEGATIVE [facility] Comment on above: Performed By: #### Sha SINHA UMICRO #### [facility] [address] [place] [address] Dr. Sara Matos LEUKOCYTES Negative Normal NEGATIVE [facility] Comment on above: Performed By: #### Sha SINHA UMICRO #### [facility] [address] [place] [address] Dr. Sara Matos Nitrite Ql (U) Negative Normal NEGATIVE [facility] Comment on above: Performed By: #### Sha SINHA UMICRO #### [facility] [address] [place] [address] Dr. Sara Matos pH (U) 6.0 [pH] Normal 5-9 [facility] Comment on above: Performed By: #### Sha SINHA UMICRO #### [facility] [address] [address] [address] Sara Matos SPEC GRAVITY <=1.005 Abnormal 1.005-<=1.025 [facility] Comment on above: Performed By: #### Sha SINHA UMICRO #### [facility] [address] [place] [address] Dr. Sara Matos UA PROTEIN Negative Normal NEGATIVE/ TRACE [facility] Comment on above: Performed By: #### Sha SINHA UMICRO #### [facility] [address] [place] [address] Dr. Sara Matos UR MICRO IND INDICATED Normal [facility] Comment on above: Performed By: #### JAIME GODWIN #### [facility] [address] [place] [address] Dr. Sara Matos Urobilinogen Qn (U) 0.2 {Ana'U}/dL Normal 0.2 - 1. 0 [facility] Comment on above: Performed By: #### JAIME GODWIN #### [facility] [address] [place] [address] Dr. Sara Matos PREG HCG QUALon 01-30-2022 , QUAL Negative Normal NEGATIVE [facility] Comment on above: Performed By: #### JAIME GODWIN #### [facility] [address] [place] [address] Dr. Sara Matos PROF 14(COMP METB)on 022 Albumin [Mass/Vol] 4.3 g/dL Normal 3.4-5.0 [facility] Comment on above: Performed By: #### T SH #### [facility] [address] [place] [address] Dr. Sara Matos Albumin/Globulin [Mass ratio] 1.2 {ratio} Normal [facility] Comment on above: Performed By: #### T SH #### [facility] [address] [place] [address] Dr. Sara Matos ALP [Catalytic activity/Vol] 63 U/L Normal 46-116 [facility] Comment on above: Performed By: #### T SH #### [facility] [address] [place] [address] Dr. Sara Matos ALT [Catalytic activity/Vol] 35 U/L Normal 14-59 [facility] Comment on above: Performed By: #### T SH #### [facility] [address] [place] [address] Dr. Sara Matos Anion gap [Moles/Vol] 9.7 mmol/L Normal [facility] Comment on above: Performed By: #### T SH #### [facility] [address] [place] [address] Dr. Sara Matos AST [Catalytic activity/Vol] 19 U/L Normal 15-37 [facility] Comment on above: Performed By: #### T SH #### [facility] [address] [place] [address] Dr. Sara Matos Bilirubin [Mass/Vol] 0.4 mg/dL Normal 0.2-1.0 [facility] Comment on above: Performed By: #### T SH #### [facility] [address] [place] [address] Dr. Sara Matos Calcium [Mass/Vol] 9.3 mg/dL Normal 8.5-10.1 [facility] Comment on above: Performed By: #### T SH #### [facility] [address] [place] [address] Dr. Sara Matos Chloride [Moles/Vol] 101 mmol/L Normal 98-107 [facility] Comment on above: Performed By: #### T SH #### [facility] [address] [place] [address] Dr. Sara Matos CO2 [Moles/Vol] 27.8 mmol/L Normal 21.0-32.0 [facility] Comment on above: Performed By: #### T SH #### [facility] [address] [place] [address] Dr. Sara Matos Creatinine [Mass/Vol] 0.78 mg/dL Normal 0.55-1.02 [facility] Comment on above: Performed By: #### T SH #### [facility] [address] [place] [address] Dr. Sara Matos EGFR-AF ALBANIAN >60 Normal >=60 [facility] Comment on above: Performed By: #### T SH #### [facility] [address] [place] [address] Dr. Sara Matos EGFR-NON AF ALBANIAN >60 Normal >=60 [facility] Comment on above: Performed By: #### T SH #### [facility] [address] [place] [address] Dr. Sara Matos Globulin (S) [Mass/Vol] 3.5 g/dL Normal [facility] Comment on above: Performed By: #### T SH #### [facility] [address] [place] [address] Dr. Sara Matos Glucose [Mass/Vol] 89 mg/dL Normal 74-106 [facility] Comment on above: Performed By: #### T SH #### [facility] [address] [place] [address] Dr. Sara Matos Potassium [Moles/Vol] 3.5 mmol/L Normal 3.5-5.1 [facility] Comment on above: Performed By: #### T SH #### [facility] [address] [place] [address] Dr. Sara Matos Protein [Mass/Vol] 7.8 g/dL Normal 6.4-8.2 [facility] Comment on above: Performed By: #### T SH #### [facility] [address] [place] [address] Dr. Sara Matos Sodium [Moles/Vol] 135 mmol/L Critically low 136-145 [facility] Comment on above: Performed By: #### T SH #### [facility] [address] [place] [address] Dr. Sara Matos Urea nitrogen [Mass/Vol] 6.0 mg/dL Critically low 7.0-18.0 [facility] Comment on above: Performed By: #### T SH #### [facility] [address] [place] [address] Dr. Sara Matos Urea nitrogen/Creatinine [Mass ratio] 7.7 mg/mg Normal [facility] Comment on above: Performed By: #### T SH #### [facility] [address] [place] [address] Dr. Sara Matos URINE MICROSCOPIC ONLYon BACTERIA NONE SEEN Normal NONE SEEN [facility] Comment on above: Performed By: #### E JAIME SINHA #### [facility] [address] [place] [address] Dr. Sara Matos Bacteria identified Cx Nom (U) NOT INDICATED Normal [facility] Comment on above: Performed By: #### Sha SINHA UMICRO #### [facility] [address] [place] [address] Dr. Sara Matos CAST NONE SEEN Normal NONE SEEN [facility] Comment on above: Performed By: #### Sha SINHA, UMICRO #### [facility] [address] [place] [address] Dr. Sara Matos Crystals LM Nom (Urine sed) NONE SEEN Normal NONE SEEN [facility] Comment on above: Performed By: #### Sha SINHA UMICRO #### [facility] [address] [place] [address] Dr. Sara Matos Epithelial cells LM Ql (Urine sed) RARE Normal NONE SEEN /RARE [facility] Comment on above: Performed By: #### Sha SINHA UMICRO #### [facility] [address] [place] [address] Dr. Sara Matos MUCOUS NONE SEEN Normal NONE SEEN [facility] Comment on above: Performed By: #### Sha SINHA UMICRO #### [facility] [address] [place] [address] Dr. Sara Matos RBC 0-2 Normal 0-2 [facility] Comment on above: Performed By: #### Sha SINHA UMICRO #### [facility] [address] [place] [address] Dr. Sara Matos WBC 0-2 Abnormal NONE SEEN [facility] Comment on above: Performed By: #### Sha SINHA UMICRO #### [facility] [address] [place] [address] Dr. Sara Matos CBC AUTO DIFFon 01-24-2022 BASO # 0.1 103/ul Normal 0.0-0.1 [facility] Comment on above: Performed By: #### Sha SINHA UMICRO #### [facility] [address] [place] [address] Dr. Sara Matos Basophils/100 WBC (Bld) 0.5 % Normal 0.2-2.0 [facility] Comment on above: Performed By: #### KACY GODWINRO #### [facility] [address] [place] [address] Dr. Sara Matos EO # 0.0 103/ul Normal 0.0-0.7 [facility] Comment on above: Performed By: #### KACY GODWINRO #### [facility] [address] [place] [address] Dr. Sara Matos Eosinophils/100 WBC (Bld) 0.4 % Critically low 0.9-7.0 [facility] Comment on above: Performed By: #### KACY GODWINRO #### [facility] [address] [place] [address] Dr. Sara Matos Erythrocyte distribution width (RBC) [Ratio] 13.3 % Normal 11.0-15.0 [facility] Comment on above: Performed By: #### KACY GODWINRO #### [facility] [address] [place] [address] Dr. Sara Matos Hematocrit (Bld) [Volume fraction] 39.4 % Normal 36.0-48.0 [facility] Comment on above: Performed By: #### KACY GODWINRO #### [facility] [address] [place] [address] Dr. Sara Matos Hemoglobin (Bld) [Mass/Vol] 12.9 g/dL Normal 12.0-16.0 [facility] Comment on above: Performed By: #### KACY GODWINRO #### [facility] [address] [place] [address] Dr. Sara Matos IG # 0.03 10e3/ul Normal 0.00-0.03 [facility] Comment on above: Performed By: #### KACY GODWINRO #### [facility] [address] [place] [address] Dr. Sara Matos IG % 0.3 % Normal 0.0-0.5 [facility] Comment on above: Performed By: #### JAIME GODWIN #### [facility] [address] [place] [address] Dr. Sara Matos LYMPH # 2.8 103/ul Normal 1.2-3.8 [facility] Comment on above: Performed By: #### JAIME GODWIN #### [facility] [address] [place] [address] Dr. Sara Matos Lymphocytes/100 WBC (Bld) 25.3 % Normal 20.5-60.0 [facility] Comment on above: Performed By: #### KACY GODWINRO #### [facility] [address] [place] [address] Dr. Sara Matos MANUAL DIFF REQ NO Normal [facility] Comment on above: Performed By: #### KACY GODWINRO #### [facility] [address] [place] [address] Dr. Sara Matos MCH (RBC) [Entitic mass] 26.5 pg Critically low 26.7-34.0 [facility] Comment on above: Performed By: #### KACY GODWINRO #### [facility] [address] [place] [address] Dr. Sara Matos MCHC (RBC) [Mass/Vol] 32.7 g/dL Normal 29.9-35.2 [facility] Comment on above: Performed By: #### KACY GODWINRO #### [facility] [address] [place] [address] Dr. Sara Matos MCV (RBC) [Entitic vol] 80.9 fL Critically low 81.0-99.0 [facility] Comment on above: Performed By: #### KACY GODWINRO #### [facility] [address] [place] [address] Dr. Sara Matos MONO # 0.8 103/ul Normal 0.3-0.8 [facility] Comment on above: Performed By: #### KACY GODWINRO #### [facility] [address] [place] [address] Dr. Sara Matos Monocytes/100 WBC (Bld) 6.8 % Normal 1.7-12.0 [facility] Comment on above: Performed By: #### E RUR, UMICRO #### [facility] [address] [place] [address] Dr. Sara Matos NEUT # 7.4 103/ul Critically high 1.4-6.5 [facility] Comment on above: Performed By: #### Sha SINHA UMICRO #### [facility] [address] [place] [address] Dr. Sara Matos Neutrophils/100 WBC (Bld) 66.7 % Normal 43.0-75.0 [facility] Comment on above: Performed By: #### Sha SINHA UMICRO #### [facility] [address] [place] [address] Dr. Sara Matos Platelet mean volume (Bld) [Entitic vol] 11.3 fL Normal 9.5-13.5 [facility] Comment on above: Performed By: #### Sha SINHA UMICRO #### [facility] [address] [place] [address] Dr. Sara Matos PLT 281 103/ul Normal 150-450 [facility] Comment on above: Performed By: #### Sha SINHA UMICRO #### [facility] [address] [place] [address] Dr. Sara Matos RBC 4.87 106/ul Normal 4.20-5.40 [facility] Comment on above: Performed By: #### Sha SINHA UMICRO #### [facility] [address] [place] [address] Dr. Sara Matos WBC 11.1 103/ul Critically high 4.0-11.0 [facility] Comment on above: Performed By: #### Sha SINHA UMICRO #### [facility] [address] [place] [address] Dr. Sara Matos MAGNESIUMon 01-24-2022 Magnesium [Mass/Vol] 2.0 mg/dL Normal 1.8-2.4 [facility] Comment on above: Performed By: #### Sha SINHA UMICRO #### [facility] [address] [place] [address] Dr. Sara Matos T3 UPTAKEon 01-24-2022 T3U 37.0 % Normal 30.0-39.0 [facility] Comment on above: Performed By: #### T 3UP #### [facility] [address] [place] [address] Dr. Sara Matos T4on 01-24-2022 T4 [Mass/Vol] 11.60 ug/dL Normal 4.80-13.90 [facility] Comment on above: Performed By: #### T 4 #### [facility] [address] [place] [address] Dr. Sara Matos TSHon 01-24-2022 TSH 0.547 uIU/mL Normal 0.358-3.740 The [facility] Comment on above: Performed By: #### T SH #### [facility] [address] [place] [address] Dr. Sara Matos TSH RANGE SEE BELOW Normal [facility] Comment on above: Result Comment: <0.3 4 UIU/ml HYPERTHYROID 0.34-5.60 UIU/ml EUTHYROID >5.60 UIU/ml HYPOTHYROID Performed By: #### T SH #### [facility] [address] [place] [address] Dr. Sara Matos CBC AUTO DIFFon 01-19-2022 BASO # 0.0 103/ul Normal 0.0-0.1 [facility] Comment on above: Performed By: #### T SH #### [facility] [address] [place] [address] Dr. Sara Matos Basophils/100 WBC (Bld) 0.5 % Normal 0.2-2.0 [facility] Comment on above: Performed By: #### T SH #### [facility] [address] [place] [address] Dr. Sara Matos EO # 0.1 103/ul Normal 0.0-0.7 [facility] Comment on above: Performed By: #### T SH #### [facility] [address] [place] [address] Dr. Sara Matos Eosinophils/100 WBC (Bld) 1.1 % Normal 0.9-7.0 [facility] Comment on above: Performed By: #### T SH #### [facility] [address] [place] [address] Dr. Sara Matos Erythrocyte distribution width (RBC) [Ratio] 13.6 % Normal 11.0-15.0 [facility] Comment on above: Performed By: #### T SH #### [facility] [address] [place] [address] Dr. Sara Matos Hematocrit (Bld) [Volume fraction] 38.4 % Normal 36.0-48.0 [facility] Comment on above: Performed By: #### T SH #### [facility] [address] [place] [address] Dr. Sara Matos Hemoglobin (Bld) [Mass/Vol] 12.5 g/dL Normal 12.0-16.0 [facility] Comment on above: Performed By: #### T SH #### [facility] [address] [place] [address] Dr. Sara Matos IG # 0.02 10e3/ul Normal 0.00-0.03 [facility] Comment on above: Performed By: #### T SH #### [facility] [address] [place] [address] Dr. Sara Matos IG % 0.2 % Normal 0.0-0.5 [facility] Comment on above: Performed By: #### T SH #### [facility] [address] [place] [address] Dr. Sara Matos LYMPH # 2.5 103/ul Normal 1.2-3.8 [facility] Comment on above: Performed By: #### T SH #### [facility] [address] [place] [address] Dr. Sara Matos Lymphocytes/100 WBC (Bld) 28.9 % Normal 20.5-60.0 [facility] Comment on above: Performed By: #### T SH #### [facility] [address] [place] [address] Dr. Sara Matos MANUAL DIFF REQ NO Normal [facility] Comment on above: Performed By: #### T SH #### [facility] [address] [place] [address] Dr. Sara Matos MCH (RBC) [Entitic mass] 26.9 pg Normal 26.7-34.0 [facility] Comment on above: Performed By: #### T SH #### [facility] [address] [place] [address] Dr. Sara Matos MCHC (RBC) [Mass/Vol] 32.6 g/dL Normal 29.9-35.2 [facility] Comment on above: Performed By: #### T SH #### [facility] [address] [place] [address] Dr. Sara Matos MCV (RBC) [Entitic vol] 82.6 fL Normal 81.0-99.0 [facility] Comment on above: Performed By: #### T SH #### [facility] [address] [place] [address] Dr. Sara Matos MONO # 0.7 103/ul Normal 0.3-0.8 [facility] Comment on above: Performed By: #### T SH #### [facility] [address] [place] [address] Dr. Sara Matos Monocytes/100 WBC (Bld) 7.5 % Normal 1.7-12.0 [facility] Comment on above: Performed By: #### T SH #### [facility] [address] [place] [address] Dr. Sara Matos NEUT # 5.4 103/ul Normal 1.4-6.5 [facility] Comment on above: Performed By: #### T SH #### [facility] [address] [place] [address] Dr. Sara Matos Neutrophils/100 WBC (Bld) 61.8 % Normal 43.0-75.0 [facility] Comment on above: Performed By: #### T SH #### [facility] [address] [place] [address] Dr. Sara Matos Platelet mean volume (Bld) [Entitic vol] 11.4 fL Normal 9.5-13.5 [facility] Comment on above: Performed By: #### T SH #### [facility] [address] [place] [address] Dr. Sara Matos PLT 233 103/ul Normal 150-450 [facility] Comment on above: Performed By: #### T SH #### [facility] [address] [place] [address] Dr. Sara Matos RBC 4.65 106/ul Normal 4.20-5.40 [facility] Comment on above: Performed By: #### T SH #### [facility] [address] [place] [address] Dr. Sara Matos WBC 8.8 103/ul Normal 4.0-11.0 [facility] Comment on above: Performed By: #### T SH #### [facility] [address] [place] [address] Dr. Sara Matos PROF 14(COMP METB)on 022 Albumin [Mass/Vol] 3.8 g/dL Normal 3.4-5.0 [facility] Comment on above: Performed By: #### KACY GODWINRO #### [facility] [address] [place] [address] Dr. Sara Matos Albumin/Globulin [Mass ratio] 1.0 {ratio} Normal [facility] Comment on above: Performed By: #### KACY GODWINRO #### [facility] [address] [place] [address] Dr. Sara Matos ALP [Catalytic activity/Vol] 65 U/L Normal 46-116 [facility] Comment on above: Performed By: #### KACY GODWINRO #### [facility] [address] [place] [address] Dr. Sara Matos ALT [Catalytic activity/Vol] 52 U/L Normal 14-59 [facility] Comment on above: Performed By: #### Sha SINHA UMICRO #### [facility] [address] [place] [address] Dr. Sara Matos Anion gap [Moles/Vol] 12.0 mmol/L Normal [facility] Comment on above: Performed By: #### FLORENTINO GODWINICRO #### [facility] [address] [place] [address] Dr. Sara Matos AST [Catalytic activity/Vol] 28 U/L Normal 15-37 [facility] Comment on above: Performed By: #### FLORENTINO GODWINICRO #### [facility] [address] [place] [address] Dr. Sara Matos Bilirubin [Mass/Vol] 0.4 mg/dL Normal 0.2-1.0 [facility] Comment on above: Performed By: #### Sha SINHA UMICRO #### [facility] [address] [place] [address] Dr. Sara Matos Calcium [Mass/Vol] 9.5 mg/dL Normal 8.5-10.1 [facility] Comment on above: Performed By: #### Sha SINHA UMICRO #### [facility] [address] [place] [address] Dr. Sara Matos Chloride [Moles/Vol] 103 mmol/L Normal 98-107 [facility] Comment on above: Performed By: #### Sha SINHA UMICRO #### [facility] [address] [place] [address] Dr. Sara Matos CO2 [Moles/Vol] 26.7 mmol/L Normal 21.0-32.0 [facility] Comment on above: Performed By: #### Sha SINHA UMICRO #### [facility] [address] [place] [address] Dr. Sara Matos Creatinine [Mass/Vol] 0.69 mg/dL Normal 0.55-1.02 [facility] Comment on above: Performed By: #### Sha SINHA UMICRO #### [facility] [address] [place] [address] Dr. Sara Matos EGFR-AF ALBANIAN >60 Normal >=60 [facility] Comment on above: Performed By: #### Sha SINHA UMICRO #### [facility] [address] [place] [address] Dr. Sara Matos EGFR-NON AF ALBANIAN >60 Normal >=60 [facility] Comment on above: Performed By: #### JAIME GODWIN #### [facility] [address] [place] [address] Dr. Sara Matos Globulin (S) [Mass/Vol] 3.9 g/dL Normal [facility] Comment on above: Performed By: #### JAIME GODWIN #### [facility] [address] [place] [address] Dr. Sara Matos Glucose [Mass/Vol] 84 mg/dL Normal 74-106 [facility] Comment on above: Performed By: #### JAIME GODWIN #### [facility] [address] [place] [address] Dr. Sara Matos Potassium [Moles/Vol] 3.7 mmol/L Normal 3.5-5.1 [facility] Comment on above: Performed By: #### JAIME GODWIN #### [facility] [address] [place] [address] Dr. Sara Matos Protein [Mass/Vol] 7.7 g/dL Normal 6.4-8.2 [facility] Comment on above: Performed By: #### JAIME GODWIN #### [facility] [address] [place] [address] Dr. Sara Matos Sodium [Moles/Vol] 138 mmol/L Normal 136-145 [facility] Comment on above: Performed By: #### JAIME GODWIN #### [facility] [address] [place] [address] Dr. Sara Matos Urea nitrogen [Mass/Vol] 8.0 mg/dL Normal 7.0-18.0 [facility] Comment on above: Performed By: #### JAIME GODWIN #### [facility] [address] [place] [address] Dr. Sara Matos Urea nitrogen/Creatinine [Mass ratio] 11.6 mg/mg Normal [facility] Comment on above: Performed By: #### JAIME GODWIN #### [facility] [address] [place], [place] [address] Dr. Sara Matos TROPONIN, HIGH SENSITIVITYon 01-19-2022 HSTROP <4.0 Normal 4.0-51.3 [facility] Comment on above: Result Comment: CUT- OFF POINTS HAVE BEEN ESTABLISHED BASED ON THE FOURTH UNIVERSAL DEFINITIONS OF MYOCARDIAL INFARCTION. THE UPPER REFERENCE LIMIT (URL) OF TROPONIN, DEFINED THE 99TH PERCENTILE OF cTnI DISTRIBUTION IN A REFERENCE POPULATION, HAS BEEN CONFIRMED THE DECISION THRESHOLD FOR [place] DIAGNOSIS. Performed By: #### JAIME GODWIN #### [facility] [address] [place], [place] [address] Dr. Sara Matos XR CHEST 1 Von [...] by: DUSTY BUSCH Date: 2022-01-19 21:50 Normal [facility] US GUY DOP LEG LTon [...] DE LA O Date: 2021-12-25 12:20 Normal [facility] XR CHEST 1 Von 12-25-2021 [...] by: PREM GUERRA Date: 2021-12-25 11:45 Normal [facility] U24 Proteinon 09-04-2017 PROTEIN:MCNC:24H:UR INE:QN: 102 mg/24hr Normal 28-141 [facility] Comment on above: Performed By: #### 2 [id number] ####[facility] [id number] [place] [address] ALBUMIN/PROTEIN.TOT AL:MFR:PT:URINE:QN: ELECTROPHORESIS 8.0 mg/dL Invalid Interpretation Code [facility] Comment on above: Result Comment: The reference range and other method performance specifications have not been established for this test; results should be integrated into the clinical context for interpretation. Performed By: #### 2 [id number], [id number] ####[address] [address] U24 Total Volon 09-04-2017 Hrs Glenna 24 hour(s) Invalid Interpretation Code [facility] Comment on above: Order Comment: Order added by Discern Expert Performed By: #### 2 [id number] ####[id number] [place] [address] SPECIMEN VOLUME:VOL:XXX:URIN E:QN: 1280 mL Invalid Interpretation Code [facility] Comment on above: Order Comment: Order added by Discern Expert Performed By: #### 2 [id number], [id number] ####[address] [address] Vital Signs Date Time Vital Sign Value Performing Clinician Yani frye 08-28-2024 15:03-0500 Body mass index (BMI) [Ratio] 45.14 kg/m2 Isabela HENNESSY Work Phone: [facility] 08-28-2024 15:03-0500 Body weight 119.3 kg Isabela HENNESSY Work Phone: [facility] 08-28-2024 15:03-0500 Diastolic blood pressure 84 mm[Hg] Isabela Whitakers PA Work Phone: [facility] 08-28-2024 15:03-0500 Systolic blood pressure 132 mm[Hg] Isabela Spencer PA Work Phone: [facility] 08-07-2024 11:22-0500 Body mass index (BMI) [Ratio] 48.41 kg/m2 Jonas Jose DO Work Phone: [facility] 08-07-2024 11:22-0500 Body weight 127.91 kg Jonas Jose DO Work Phone: [facility] 08-07-2024 11:22-0500 Diastolic blood pressure 64 mm[Hg] Jonas Jose DO Work Phone: [facility] 08-07-2024 11:22-0500 Systolic blood pressure 104 mm[Hg] Jonas Jose DO Work Phone: [facility] 08-01-2024 10:57-0500 Body mass index (BMI) [Ratio] 47.55 kg/m2 Isabela Spencer PA Work Phone: [facility] 08-01-2024 10:57-0500 Body weight 125.65 kg Isabela Spencer PA Work Phone: [facility] 08-01-2024 10:57-0500 Diastolic blood pressure 70 mm[Hg] Isabela Spencer PA Work Phone: [facility] 08-01-2024 10:57-0500 Systolic blood pressure 120 mm[Hg] Isabela Spencer PA Work Phone: [facility] 07-18-2024 11:15-0500 Body mass index (BMI) [Ratio] 46.93 kg/m2 Isabela Whitakers PA Work Phone: [facility] 07-18-2024 11:15-0500 Body weight 124.01 kg Isabela Whitakers PA Work Phone: [facility] 07-18-2024 11:15-0500 Diastolic blood pressure 80 mm[Hg] Isabela Whitakers PA Work Phone: [facility] 07-18-2024 11:15-0500 Systolic blood pressure 120 mm[Hg] Isabela Palmer PA Work Phone: [facility] 06-27-2024 10:38-0500 Body mass index (BMI) [Ratio] 47.1 kg/m2 Jonas Jose DO Work Phone: [facility] 06-27-2024 10:38-0500 Body weight 124.47 kg Jonas Jose DO Work Phone: [facility] 06-27-2024 10:38-0500 Diastolic blood pressure 72 mm[Hg] Jonas Jose DO Work Phone: [facility] 06-27-2024 10:38-0500 Systolic blood pressure 118 mm[Hg] Jonas Jose DO Work Phone: [facility] 05-15-2024 11:15-0400 Body mass index (BMI) [Ratio] 46.35 kg/m2 Isabela HENNESSY Work Phone: [facility] 05-15-2024 11:15-0400 Body weight 122.47 kg Isabela Palmer PA Work Phone: [facility] 05-15-2024 11:15-0400 Diastolic blood pressure 80 mm[Hg] Isabela Palmer PA Work Phone: [facility] 05-15-2024 11:15-0400 Systolic blood pressure 114 mm[Hg] Isabela Palmer PA Work Phone: [facility] 04-11-2024 11:55-0400 Body mass index (BMI) [Ratio] 45.8 kg/m2 Jonas Jose DO Work Phone: [facility] 04-11-2024 11:55-0400 Body weight 121.02 kg Jonas Jose DO Work Phone: [facility] 04-11-2024 11:55-0400 Diastolic blood pressure 80 mm[Hg] Jonas Jose DO Work Phone: [facility] 04-11-2024 11:55-0400 Systolic blood pressure 118 mm[Hg] Jonas Jose DO Work Phone: [facility] Encounters Encounter Date Encounter Type Care Provider Facility Start: 08-28-2024 End: 08-28-2024 ambulatory ISABELA PALMER Not Available Start: 08-28-2024 End: 08-28-2024 Postop follow up visit related to original px Isabela HENNESSY Work Phone: [facility] Comment on above: S/P section ; Encounter for visit; Postop check Start: 08-28-2024 End: 08-28-2024 Bamboo flowsheet Isabela HENNESSY Work Phone: [facility] Start: 08-28-2024 End: 08-28-2024 Bamboo flowsheet Isabela HENNESSY Work Phone: [facility] Start: 08-10-2024 End: 08-10-2024 Clinisync Result Encounter Jonas Jose DO Work Phone: [facility] Unsolicited Start: 08-10-2024 End: 08-10-2024 Clinisync Result Encounter Jonas Jose DO Work Phone: [facility] Unsolicited Start: 08-07-2024 End: 08-07-2024 Bamboo flowsheet Jonas Jose DO Work Phone: [facility] Start: 08-07-2024 End: 08-07-2024 Bamboo flowsheet Jonas Jose DO Work Phone: [facility] Start: 08-07-2024 End: 08-07-2024 Office outpatient visit 15 minutes Jonas Jose DO Work Phone: [facility] Comment on above: Third trimester preg kat; 38 weeks gestation of Start: 08-07-2024 End: 08-07-2024 ambulatory JONAS JOSE Not Available Start: 08-01-2024 End: 08-01-2024 Bamboo flowsheet Isabela HENNESSY Work Phone: [facility] Start: 08-01-2024 End: 08-01-2024 Bamboo flowsheet Isabela Palmer PA Work Phone: [facility] Start: 08-01-2024 End: 08-01-2024 Office outpatient visit 15 minutes Isabela HENNESSY Work Phone: [facility] Comment on above: Third trimester preg kat; 37 weeks gestation of Start: 08-01-2024 End: 08-01-2024 ambulatory ISABELA PALMER Not Available Start: 07-22-2024 End: 07-22-2024 Clinisync Result Encounter Isabela HENNESSY Work Phone: [facility] Unsolicited Start: 07-22-2024 End: 07-22-2024 Clinisync Result Encounter Isabela HENNESSY Work Phone: [facility] Unsolicited Start: 07-18-2024 End: 07-18-2024 Bamboo flowsheet Isabela HENNESSY Work Phone: [facility] Start: 07-18-2024 End: 07-18-2024 Bamboo flowsheet Isabela Palmer PA Work Phone: [facility] Start: 07-18-2024 End: 07-18-2024 Office outpatient visit 15 minutes Isabela HENNESSY Work Phone: [facility] Comment on above: 35 weeks [...] 05-15-2024 Bamboo flowsheet Isabela HENNESSY Work Phone: [facility] Start: 05-15-2024 End: 05-15-2024 Bamboo flowsheet Isabela HENNESSY Work Phone: [facility] Start: 05-15-2024 End: 05-15-2024 ambulatory ISABELA PALMER Not Available Start: 05-15-2024 End: 05-15-2024 Office outpatient visit 15 minutes Isabela HENNESSY Work Phone: [facility] Comment on above: 26 weeks gestation o f (Primary Dx); Second trimester ; with normal glucose tolerance test (GTT); Diabetes mellitus screening Start: 04-11-2024 End: 04-11-2024 Clinisync Result Encounter Jonas Jose DO Work Phone: [facility] External Department Unsolicited Start: 04-11-2024 End: 04-12-2024 Clinisync Result Encounter Jonas Jose DO Work Phone: [facility] External Department Unsolicited Start: 04-11-2024 End: 04-12-2024 External Result Encounter Jonas Jose DO Work Phone: [facility] External Department Unsolicited Start: 04-11-2024 End: 04-11-2024 ambulatory JONAS JOSE Not Available Start: 04-11-2024 End: 04-11-2024 Patient encounter procedure Jonas Jose DO Work Phone: [facility] Start: 04-11-2024 End: 04-11-2024 Periodic preventive med est patient 18-39 yrs Jonas Jose DO Work Phone: [facility] Comment on above: 21 weeks gestation o f ; Screening, , for anatomic survey; Exposure to STD; Vaginal discharge; Well woman exam with routine gynecological exam Start: 03-09-2024 End: 03-09-2024 ambulatory JONAS GARCIA [...] Start: 09-04-2017 End: 09-05-2017 Ambulatory Jonah York Facility[place] [place] Procedures Date Procedure Procedure Detail Performing Clinician Start: 08-10-2024 HMHP CBC WITH PLATEL ET NO DIFFERENTIAL Jonas Garcia DO Work Phone: Start: 08-01-2024 Urnls dip stick/tabl et rgnt [...] AUTO DIFF Jonas Jose DO Work Phone: H/O: section S/P sectio n Isabela HENNESSY Work Phone: Plan of Treatment Date Care Activity Detail Author Start: 09-25-2024 End: 09-25-2024 ambulatory 09/25/2024 2:30 PM EST Visit [facility] [address] [facility] [place] [id number] Isabela Palmer PA [address] [place] [address] [facility] Start: 08-07-2024 End: 08-07-2024 Patient encounter procedure [facility] Comment on above: Arrived Start: 08-01-2024 End: 08-01-2024 Patient encounter procedure 08/01/2024 10:40 AM EST Routine [facility] [address] [facility] [place] [phone] Isabela Palmer PA [address] [place] [address] Arrived [facility] Comment on above: Arrived Start: 07-26-2024 End: 07-26-2024 Patient encounter procedure 07/26/2024 2:50 PM EST Routine [facility] [address] [place] [phone] Isabela Palmer PA [address] [place] [address] [facility] Start: 07-18-2024 End: 07-18-2025 [...] AM EST Routine [facility] [address] [facility] [place] [phone] Isabela Palmer, PA [address] [place] [address] Arrived [facility] Comment on above: Arrived Start: 07-11-2024 End: 07-11-2024 Patient encounter procedure 07/11/2024 10:10 AM EST Routine [facility] [address] [place] [id number] Isabela Palmer, PA [address] [place] [address] [facility] Start: 07-11-2024 End: 07-11-2024 Professional / ancillary services management 07/11/2024 9:30 AM EST Ancillary Procedure [facility] [address] [place] [phone] [facility] Start: 06-27-2024 End: 06-27-2025 [...] mellitus screening Expected: 05/15/2024 (Approximate), Expires: 05/15/2025 [facility] Work Phone: Comment on above: Expected: 05/15/2024 (Approximate), Expires: 05/15/2025 Start: 05-15-2024 End: 05-15-2025 Measurement of glucose 1 hour after glucose challenge for glucose tolerance test Glucose tolerance, 1 hour Lab Routine Diabetes mellitus screening Expected: 05/15/2024 (Approximate), Expires: 05/15/2025 [facility] Comment on above: Expected: 05/15/2024 (Approximate), Expires: 05/15/2025 Start: 05-15-2024 End: 05-15-2024 Patient encounter procedure 05/15/2024 10:40 AM EDT Routine [facility] [address] [place] [phone] Isabela Palmer PA [address] [place] [address] Arrived [facility] Comment on above: Arrived Start: 05-09-2024 End: 05-09-2024 Patient encounter procedure 05/09/2024 2:30 PM EDT Routine [facility] [address] [place] [phone] Isabela Palmer, PA [address] [place] [address] [facility] Start: 04-18-2024 End: 04-18-2024 Professional / ancillary services management 04/18/2024 11:00 AM EDT Ancillary Procedure [facility] [address] [place] [phone] [facility] Start: 04-16-2024 Influenza vaccination Influenza Vacc ine (#1) [facility] Start: 04-11-2024 End: 06-11-2024 Alpha fetoprotein, maternal Alpha fetoprotein, maternal Lab Routine 21 weeks gestation of Expected: 04/11/2024 (Approximate), Expires: 06/11/2024 [facility] Comment on above: Expected: 04/11/2024 (Approximate), Expires: 06/11/2024 Start: 04-11-2024 End: 04-11-2025 US for US OB ANATOMY SINGLE W US OB CERVICAL LENGTH Imaging Routine Screening, , for anatomic survey Expected: 04/11/2024 (Approximate), Expires: 04/11/2025 [facility] Comment on above: Expected: 04/11/2024 (Approximate), Expires: 04/11/2025 Start: 04-11-2024 End: 04-11-2024 Patient encounter procedure 04/11/2024 11:30 AM EDT Routine [facility] [address] [place] [phone] Jonas Garcia DO [address] [facility] [place] [address] [facility] CHLAMYDIA TRACHOMATI S (GENITO/STI) CHLAMYDIA TRACHOMATIS (GENITO/STI) Lab Routine Exposure to STD Ordered: 04/11/2024 [facility] Comment on above: Ordered: 04/11/2024 Cytology Cervical or vaginal smear or scraping study Pap Smear Pathology and Cytology Routine Well woman exam with routine gynecological exam Ordered: 04/11/2024 [facility] Comment on above: Ordered: 04/11/2024 Hemoglobin A1c/Hemoglobin.total in Blood Hemoglobin A1c Lab Routine 35 weeks gestation of Third trimester 32 weeks gestation of Ordered: 07/18/2024 [facility] Comment on above: Ordered: 07/18/2024 Neisseria gonorrhoea e DNA [Presence] in Unspecified specimen by DEENA with probe detection Neisseria gonorrhea DNA probe, direct Lab Routine Exposure to STD Ordered: 04/11/2024 [facility] Comment on above: Ordered: 04/11/2024 SURESWAB(R) ADVANCED VAGINITIS PLUS, TMA SURESWAB(R) ADVANCED VAGINITIS PLUS, TMA Pathology and Cytology Routine Vaginal discharge Ordered: 04/11/2024 [facility] Work Phone: Comment on above: Ordered: 04/11/2024 Payers Date Payer Category Payer Medicaid [employer] [place] [employer] [id number] 2018-Present [address] [place] [id number] 2018 Medicaid (Managed Care) [employer] [id number] 1995 Unknown [id number] 2.16840.1.943863.3.579.2. 593 1995 Unknown [id number] 2.16.840.1.572268.3.579.2. 593 1995 Unknown [id number] 2.16.840.1.357247.3.579.2. 593 1995 Unknown [id number] 2.16.840.1.985407.3.579.2. 593 1995 Unknown [id number] 2.16.840.1.803048.3.579.2. 593 1995 Unknown [id number] 2.16.840.1.622220.3.579.2. 593 1995 Unknown [id number] 2.16.840.1.818532.3.579.2. 593 1995 Unknown [id number] 2.16.840.1.525953.3.579.2. 593 1995 Unknown [id number] 2.16.840.1.683888.3.579.2. 593 1995 Unknown [id number] 2.16.840.1.105056.3.579.2. 593 1995 Unknown [id number] 2.16.840.1.720646.3.579.2. 593 1995 Unknown [id number] 2.16.840.1.991752.3.579.2. 593 1995 Unknown [id number] 2.16.840.1.369710.3.579.2. 593 1995 Unknown [id number] 2.16.840.1.259871.3.579.2. 593 1995 Unknown [id number] 2.16.840.1.220341.3.579.2. 593 1995 Unknown [id number] 2.16.840.1.776324.3.579.2. 1259 1995 Unknown [id number] 2.16.840.1.384446.3.579.2. 1259 1995 Unknown [id number] 2.16.840.1.516199.3.579.2. 1259 1995 Unknown [id number] 2.16.840.1.360928.3.579.2. 1259 1995 Unknown [id number] 2.16.840.1.014974.3.579.2. 1259 1995 Unknown [id number] 2.16.840.1.499051.3.579.2. 1259 1995 Unknown [id number] 2.16.840.1.118399.3.579.2. 1259 1995 Unknown [id number] 2.16.840.1.045995.3.579.2. 1259 1959 Self-pay [id number] 1959 Unknown [id number] Social History Date Type Detail Facility Start: [...] Goal Desired Activity /State Personal health goal Clinical Notes 04-11-2024 to 08-28-2024 MINOO Ramos - 08/28/2024 2:20 PM Sabra Lopez LPN - 08/07/2024 11:00 AM MINOO Kohler - 08/01/2024 10:40 AM MINOO Kohler - 07/18/2024 11:10 AM MINOO Kohler - 05/15/2024 10:40 AM EDT Note Date & Type Note Facility 08-28-2024 History of Presen t illness Narrative Reason for Appointment: Patient ID: Astrid Montague is a 28 y.o. female who presents for Care and Post-op Visit Patient presents today for 2 Week Post Op Follow Up appointment. MEDICATIONS Current Outpatient Medications Medication Instructions amoxicillin (AMOXIL) 875 mg, 2 times daily cephalexin (KEFLEX) 500 mg, 4 times daily iron polysaccharides (PROFE) 391.3 mg, Oral, Daily vimghdoxcends-OR-DOEM (Tylenol Cold Multi-Symptom) 5-10-325 mg/15 mL liquid 15 mL, Every 4 hours PRN ALLERGIES Allergies Allergen Reactions Lexapro [Escitalopram] Headache PROBLEMS Active Ambulatory Problems Diagnosis Date Noted No Active Ambulatory Problems Resolved Ambulatory Problems Diagnosis Date Noted Third trimester 08/07/2024 38 weeks gestation of 08/07/2024 Past Medical History: Diagnosis Date Anxiety Heart [...] Hypertension Mother Cancer Sister NET SURGICAL HISTORY Past Surgical History: Procedure Laterality Date SECTION, CLASSIC 08/10/2024 REVIEW OF SYSTEMS Review of Systems: Review [...] breath sounds. Abdominal: Palpations: Abdomen is soft. Comments: Incision healing well Musculoskeletal: General: Normal range of motion. Neurological: General: No focal deficit present. Mental Status: She is alert and oriented to person, place, and time. Psychiatric: Mood and Affect: Mood normal. Behavior: Behavior normal. Thought Content: Thought content normal. Judgment: Judgment normal. Vitals and nursing note reviewed. Vitals: Estimated body mass index is 45.14 kg/m as calculated from the following: Height as of 12/02/22: 5' 4 . Weight as of this encounter: 263 lb. BP: 132/84 No LMP recorded. ASSESSMENT & PLAN ICD-10-CM 1. S/P section Z98.891 2. Encounter for visit Z39.2 3. Postop check Z09 Patient presents for incision check, pt has experienced wound dehiscence, healing well, no drainage or discharge. Pt to continue antibiotics as prescribed. We will follow up at 6 weeks post Documented by MINOO Ramos on behalf of: MINOO Ramos documented in this encounter [facility] 08-07-2024 History of Presen t illness Narrative Reason for Appointment: Patient ID: Astrid Montague is a 28 y.o. female who presents for No chief complaint on file. Patient presents today for Return OB appointment. MEDICATIONS Current Outpatient Medications Medication Instructions amoxicillin (AMOXIL) 875 mg, 2 times daily vvuhtctihgkka-EQ-VEJE (Tylenol Cold Multi-Symptom) 5-10-325 mg/15 mL liquid [...] SYSTEMS Review of Systems: Review of Systems All other systems reviewed and are negative. OBJECTIVE Objective: Physical Exam Constitutional: Appearance: Normal appearance. She is well-developed. Genitourinary: Vulva normal. Cardiovascular: Rate and Rhythm: Normal rate and [...] nursing note reviewed. 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 Vitals: Estimated body mass index is 47.55 kg/m as calculated from the following: Height as of 12/02/22: 5' 4 . Weight as of 08/01/24: 277 lb. BP: Patient's last menstrual period was 11/11/2023. ASSESSMENT & PLAN Patient presents today for a routine obstetrics appointment. Patient is currently 38w4d with a Estimated Date of Delivery: 08/17/24. Patient to IOL on 08/09/24 @ 4:00pm. Patient to RTC for appointment. Documented by Deepika Lopez LPN on behalf of: Jonas Garcia DO documented in this encounter [facility] 08-01-2024 History of Presen t illness Narrative Reason for Appointment: Patient ID: Astrid Montague is a 28 y.o. female who presents for Routine Visit Patient presents today for Return OB appointment. MEDICATIONS Current Outpatient Medications Medication Instructions amoxicillin (AMOXIL) 875 mg, 2 times daily sjzueblbnakuz-GP-BAVG (Tylenol Cold Multi-Symptom) 5-10-325 mg/15 mL liquid [...] of: MINOO Ramos documented in this encounter [facility] 07-18-2024 History of Presen t illness Narrative Reason for Appointment: Patient ID: Astrid Montague is a 28 y.o. female who presents for Routine Visit Patient presents today for Return OB appointment. MEDICATIONS Current Outpatient Medications Medication Instructions amoxicillin (AMOXIL) 875 mg, 2 times daily fpcthubeabixt-TF-WLJM (Tylenol Cold Multi-Symptom) 5-10-325 mg/15 mL liquid [...] of: MINOO Ramos documented in this encounter [facility] 06-27-2024 History of Presen t illness Narrative Reason for Appointment: Patient ID: Astrid Montague is a 28 y.o. female who presents for Routine Visit Patient presents today for Return OB appointment. MEDICATIONS Current Outpatient Medications Medication Instructions ivxaaydszojlf-YY-CFIP (Tylenol Cold Multi-Symptom) 5-10-325 mg/15 mL liquid [...] nursing note reviewed. 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 Vitals: Estimated body mass index is [...] Jonas Garcia DO documented in this encounter [facility] 05-15-2024 History of Presen t illness Narrative Reason for Appointment: Patient ID: Astrid Montague is a 28 y.o. female who presents for Routine Visit Patient presents today for Return OB appointment. MEDICATIONS Current Outpatient Medications Medication Instructions wwvfspinflmuc-EX-XCKY (Tylenol Cold Multi-Symptom) 5-10-325 mg/15 mL liquid [...] of: MINOO Ramos documented in this encounter [facility] 04-11-2024 History of Presen t illness Narrative Reason for Appointment: Patient ID: Astrid Montague is a 28 y.o. female who presents for No chief complaint on file. Patient presents today for Annual Exam. and Return OB appointment. MEDICATIONS Current Outpatient Medications Medication Instructions xcdqbrcmkntfj-LW-EGEE (Tylenol Cold Multi-Symptom) 5-10-325 mg/15 mL liquid [...] nursing note reviewed. 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 Vitals: Estimated body mass index is [...] or undercooked meat, and stay away from [facility]. Patient has been consulted regarding any [...] in this encounter [facility] Evaluation note Diagnosis Third trimester state, incidental 32 weeks gestation of Excessive growth affecting management of , antepartum, single or unspecified fetus documented [facility] this [facility] Diagnosis 35 weeks gestation of Third trimester state, incidental 32 weeks gestation of JE (amniotic fluid index) borderline low Nonspecific abnormal finding in amniotic fluid documented [facility]* Diagnosis Third trimester state, incidental 37 weeks gestation of documented in this [facility]* Diagnosis 21 weeks gestation of Screening, , for anatomic survey Encounter for anatomic survey Exposure to STD Vaginal discharge Leukorrhea, not specified as infective Well woman exam with routine gynecological exam Routine gynecological examination documented [facility] this [facility]* Diagnosis 26 weeks gestation of - Primary Second trimester state, incidental with normal glucose tolerance test (GTT) Diabetes mellitus screening Screening for diabetes mellitus documented in this encounter [facility]* Diagnosis Third trimester state, incidental 38 weeks gestation of documented in this [facility]* Diagnosis S/P section Other postprocedural status Encounter for visit Postop check Follow-up examination, following unspecified surgery documented in this encounter [facility] Summary Purpose Family History No Family History Records FoundNo Family History Records FoundNo Family History Records FoundNo Family History Records Found Advance Directives No Advanced Directives Records FoundNo Advanced Directives Records FoundNo Advanced Directives Records FoundNo Advanced Directives Records Found Additional Source Comments INFORMATION SOURCE (unrecogn ized section and content) DATE CREATED AUTHOR 02/04/2018 [facility] DATE CREATED AUTHOR AUTHOR'S ORGANIZ ATION 04/25/2022 [facility] DATE CREATED AUTHOR AUTHOR'S ORGANIZ ATION 12/13/2022 [facility] DATE CREATED AUTHOR AUTHOR'S ORGANIZ ATION 08/31/2024 [facility] EPIC Reason for Visit (unrecogniz ed section and content) Reason Comments Routine Visit Reason Comments Care Post-op Visit FOR RECORDS PERTAINING TO PATIENTS WHO [...] BE BASED ON THE PRIMARY CLINICAL RECORDS. [facility]. provides no warranty or guarantee of the accuracy or completeness of information in this document.
--- NOTE | 2024-10-08 08:16 | ED_ITS ---
HPI - Nausea/Vomiting/Diarrhea General Chief complaint: Abdominal Pain Stated complaint: VOMITING, DIARRHEA Time Seen by Provider: 10/08/24 08:10 History of Present Illness HPI Narrative: cc = diarrhea and back pain 2 days ago the pt developed diarrhea, experienced nausea, and had one episode of vomiting. Diarrhea has been consistent since then. She developed pain in the mid back this morning and is concerned that she is having a problem with my gallbladder . She has strong family history of gallbladder problems. No fever or chills. She has been able to eat and drink normally. She is about 8 weeks post-. Related Data Allergies Allergy/AdvReac Type Severity Reaction Status Date / Time escitalopram (From Lexapro) Allergy Intermediate Anxiety Verified 08/22/24 21:10 PFSH PFS Medical History (Updated 10/08/24 @ 09:50 by Bob Lovell) Panic attacks ?F41.0 - Panic disorder [episodic paroxysmal anxiety] (ICD-10) Anxiety ?F41.9 - Anxiety disorder, unspecified (ICD-10) Surgical History (Updated 08/17/24 @ 00:00 by ) Status post primary low transverse section ?Z98.891 - History of uterine scar from previous surgery (ICD-10) No pertinent past surgical history ?Z78.9 - Other specified health status (ICD-10) Family History (Updated 08/10/24 @ 05:15 by Urbano Hicks) Mother Family history of diabetes mellitus Family history of hypertension Sister Family history of cancer Grandmother Family history of myocardial infarction Social History (Updated 08/10/24 @ 07:31 by Urbano Hicks) Within the past year, how often did you have a drink containing alcohol: never Score interpretation: A score less than 3 is consistent with normal alcohol consumption. Smoking status: Never smoker Non-prescribed substance use: denies use Highest level of school completed/degree received: 12th grade, no diploma Little interest or pleasure in doing things: not at all Feeling down, depressed, or hopeless: not at all Exam Narrative Exam Narrative: Nurses notes and vital signs reviewed and patient is not hypoxic. afebrile General: Well-appearing and in no apparent distress. Skin: Warm, dry, no pallor noted. No rash. Eye: Pupils are equal, round and EOMI. No scleral icterus. Ears, Nose, Mouth, and Throat: Oral mucosa is slightly dry Cardiovascular: Regular Rate and Rhythm without murmur, gallop or rub. Respiratory: No accessory muscle use or respiratory distress. Lungs are clear to auscultation, no wheezing, rales or rhonchi Chest Wall: no tenderness Back: She has some midline thoracic tenderness without spasm or palpable mass. No lumbar vertebral tenderness. No CVA tenderness Musculoskeletal: normal ROM, no calf or popliteal tenderness, no lower extremity edema/swelling GI: Abdomen is soft, non-distended. Normal bowel sounds. No masses appreciated. No tenderness to palpation. No rebound, guarding, or rigidity noted. Neurological: A&O x4. No cranial nerve dysfunction observed. No truncal ataxia. Moves all extremities. Sensation intact. Psychiatric: Cooperative and interactive. Normal mood and affect. Constitutional Vital Signs, click to edit/add: Last Vital Signs Temp 97.9 F 10/08/24 08:08 Pulse 86 10/08/24 08:56 Resp 20 10/08/24 08:56 BP 101/70 10/08/24 08:56 Pulse Ox 99 10/08/24 08:56 O2 Del Method Room Air 10/08/24 08:56 Course Vital Signs Vital signs: Vital Signs Temperature 97.9 F 10/08/24 08:08 Pulse Rate 104 H 10/08/24 08:08 Respiratory Rate 20 10/08/24 08:08 Blood Pressure 150/92 H 10/08/24 08:08 Pulse Oximetry 97 10/08/24 08:08 Temperature 97.9 F 10/08/24 08:08 Pulse Rate 86 10/08/24 08:56 Respiratory Rate 20 10/08/24 08:56 Blood Pressure 101/70 10/08/24 08:56 Pulse Oximetry 99 10/08/24 08:56 Oxygen Delivery Method Room Air 10/08/24 08:56 MDM - Nausea/Vomiting/Diarrhea MDM Narrative Medical decision making narrative: The patient's back pain is reproduced with palpation in this area. She has normal oxygenation and no tachycardia or tachypnea or complaint of chest pain or difficulty breathing, therefore I do not believe that this is referred pain from a DVT. Because she is about 8 weeks postop, we will establish peripheral IV, give her IV fluid, draw blood, evaluate liver function and treat her for any potential nausea. Peripheral IV established, blood drawn and sent for testing. Pt given 1L nS IVF and Zofran 4mg IVP. She declined the offer for the Zofran and was just given a normal saline IV fluid. Workup was notable only for slightly elevated white blood cell count at 15.3. It is worth noting that the patient's white blood cell count has been elevated most every time she has had blood drawn at this facility. CMP is unremarkable and lipase is normal. She has mild decrease in calcium, albumin. We discussed this as a potential dietary issue. Otherwise she was discharged home with recommendation to follow a brat diet and stay well-hydrated as this illness clears. Lab Data Attestation: I reviewed the patient's lab results. Labs: Lab Results 10/08/24 10/08/24 Range/Units 08:20 09:01 WBC 15.3 H (4.0-11.0) 10^3/uL RBC 4.93 (4.20-5.40) 10^6/uL Hgb 11.4 L (12.0-16.0) g/dL Hct 37.5 (36.0-48.0) % MCV 76.1 L (81.0-99.0) fL MCH 23.1 L (26.7-34.0) pg MCHC 30.4 (29.9-35.2) g/dL RDW 15.2 H (11.0-15.0) % Plt Count 329 (150-450) 10^3/uL MPV 10.7 (9.5-13.5) fL Neut % (Auto) 82.6 H (43.0-75.0) % Lymph % (Auto) 7.0 L (20.5-60.0) % [place] % (Auto) 5.8 (1.7-12.0) % Eos % (Auto) 4.1 (0.9-7.0) % Baso % (Auto) 0.2 (0.2-2.0) % Neut # (Auto) 12.6 H (1.4-6.5) 10^3/uL Lymph # (Auto) 1.1 L (1.2-3.8) 10^3/uL [place] # (Auto) 0.9 H (0.3-0.8) 10^3/uL Eos # (Auto) 0.6 (0.0-0.7) 10^3/uL Baso # (Auto) 0.0 (0.0-0.1) 10^3/uL Abs Immat Gran (auto) 0.05 H (0.00-0.03) 10^3/uL Imm/Tot Granulo (auto) 0.3 (0.0-0.5) % Sodium 137 (136-145) mmol/L Potassium 4.1 (3.5-5.1) mmol/L Chloride 104 (98-107) mmol/L Carbon Dioxide 26.4 (21.0-32.0) mmol/L Anion Gap 10.7 BUN 12.0 (7.0-18.0) mg/dL Creatinine 0.82 (0.55-1.02) mg/dL Est GFR ( Amer) >60 (>=60 mL/min/1.73m^2) Est GFR (Non-Af Amer) >60 (>=60 mL/min/1.73m^2) BUN/Creatinine Ratio 14.6 Glucose 95 (74-106) mg/dL Calcium 8.4 L (8.5-10.1) mg/dL Total Bilirubin 0.6 (0.2-1.0) mg/dL AST 13 L (15-37) U/L ALT 26 (14-59) U/L Alkaline Phosphatase 83 (46-116) U/L Total Protein 7.3 (6.4-8.2) g/dL Albumin 3.3 L (3.4-5.0) g/dL Globulin 4.0 g/dL Albumin/Globulin Ratio 0.8 Lipase 26.0 (16.0-77.0) U/L Discharge Plan Discharge Chief Complaint: Abdominal Pain Clinical Impression: Enteritis, Back pain Patient Disposition: Home, Self-Care Time of Disposition Decision: 09:48 Print Language: [place] Zealander Instructions: Back Pain (ED), Enteritis (ED) Referrals: CHANNING ELAINE [Primary Care Provider] - 1 week
[2024-10-08] MEDS: 0.9 % SODIUM CHLORIDE 1,000 ML 999 ML IV (08:25)
[2024-10-08 08:36] LABS: Basophils Percent Auto 0.2 % (0.2-2.0); Eosinophils Absolute Auto 0.6 10^3/uL (0.0-0.7); Eosinophils Percent Auto 4.1 % (0.9-7.0); Hematocrit 37.5 % (36.0-48.0); Hemoglobin 11.4 g/dL (12.0-16.0); Immature Granulocytes Abs Auto 0.05 10^3/uL (0.00-0.03); Immature Granulocytes Pct Auto 0.3 % (0.0-0.5); Lymphocytes Absolute Auto 1.1 10^3/uL (1.2-3.8); Mean Corpuscular HGB Conc 30.4 g/dL (29.9-35.2); Mean Corpuscular Hemoglobin 23.1 pg (26.7-34.0); Mean Corpuscular Volume 76.1 fL (81.0-99.0); Mean Platelet Volume 10.7 fL (9.5-13.5); Monocytes Absolute Auto 0.9 10^3/uL (0.3-0.8); Monocytes Percent Auto 5.8 % (1.7-12.0); Neutrophils Absolute Auto 12.6 10^3/uL (1.4-6.5); Neutrophils Percent Auto 82.6 % (43.0-75.0); Platelet Count 329 10^3/uL (150-450); Red Blood Count 4.93 10^6/uL (4.20-5.40); Red Cell Distribution Width 15.2 % (11.0-15.0); White Blood Count 15.3 10^3/uL (4.0-11.0)
[2024-10-08 08:56] VITALS: BP 101/70; PULSE 86; O2SAT 99
[2024-10-08 09:36] LABS: Alanine Aminotransferase 26 U/L (14-59); Albumin Globulin Ratio 0.8; Albumin Level 3.3 g/dL (3.4-5.0); Alkaline Phosphatase 83 U/L (46-116); Anion Gap 10.7; Aspartate Amino Transferase 13 U/L (15-37); BUN Creatinine Ratio 14.6; Bilirubin Total 0.6 mg/dL (0.2-1.0); Calcium 8.4 mg/dL (8.5-10.1); Carbon Dioxide 26.4 mmol/L (21.0-32.0); Chloride 104 mmol/L (98-107); Estimated GFR (African America >60 (>=60 mL/min/1.73m^2); Estimated GFR (Non-African Ame >60 (>=60 mL/min/1.73m^2); Glucose 95 mg/dL (74-106); Potassium 4.1 mmol/L (3.5-5.1); Sodium 137 mmol/L (136-145); Total Protein 7.3 g/dL (6.4-8.2)
== END 2024-10-08 09:56 | disposition home or self-care (01) ==
PROVIDERS: Emergency Provider Emergency Medicine; PCP Nurse Practitioner Family
DX: K52.9 Noninfective gastroenteritis and colitis, unspecified (principal); M54.9 Dorsalgia, unspecified
CPT/HCPCS: 36415; 80053; 83690; 85025; 96360; 99284

== ENCOUNTER 2024-10-18 20:39 | Emergency (ER) | payer OTHER, SELFPAY ==
[2024-10-18 20:41] VITALS: BP 140/82; PULSE 73; TEMP 37.2; O2SAT 98; BMI 45.5
--- OUTSIDE RECORDS SUMMARY | 2024-10-18 20:44 | XMS_ITS | CCD ---
Author Organization [facility] Care Team Providers Care Desktop Engineer Name Role Phone Jonah York Unavailable Unavailable [...] DR SEAY Admitting Unavailabl e [place], [facility] Primary Care Unavailable KARASIK ., DR SEAY Consulting Unavailabl e KARASIK ., DR SEAY Attending Unavailabl e KARASIK ., DR SEAY Admitting Unavailabl e [place], [facility] Primary Care Unavailable KARASIK ., DR SEAY Attending Unavailabl e KARASIK ., DR SEAY Admitting Unavailabl e [place], [facility] Primary Care Unavailable KARASIK ., DR SEAY Consulting Unavailabl e ZIEBER, DR CHARLIE Aguero Consulting Unavailable [place], [facility] Primary Care Unavailable REINECK, DR WANDY Silva [...] (2 sources) Escitalopram Drug Allergy 11-12-2021 [facility] Repository (20 sources) Escitalopram Drug Allergy 11-28-2021 Headache [facility] Work Phone: Medications Current Medications Medication Drug Class(es) Dates Sig (Normalized) Sig (Original) acetaminophen 21.7 mg/ml / dextromethorphan hydrobromide 0.667 mg/ml / phenylephrine hydrochloride 0.333 mg/ml oral solution (20 sources) Uncompetitive N-jaybqk-G-asparta te Receptor Antagonist, Sigma-1 Agonist, alpha-1 Adrenergic Agonist take 15 mL by mouth every four hours as needed for congestion vbmiqtzkqdsxo-GF-FQ AP (Tylenol Cold Multi-Symptom) 5-10-325 mg/15 mL [...] 04-11-2024 Episodic Other aftercare (1 source) Other rn long term care (current) drug therapy; 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] Onset: 01-26-2022 Episodic Other aftercare (1 source) senior living (current) use of anticoagulants; Translations: [ALF CURRNT USE ANTICOAGULANTS] Onset: 12-26-2021 Episodic Other [...] Test Name Value Interpretation Reference Range Facility [facility] CBC WITH PLATELET NO DI FFERENTIALon 08-10-2024 Erythrocyte distribution width (RBC) [Ratio] 14.4 % 11.0 - 15.0 % [facility] Hematocrit (Bld) [Volume fraction] 30.7 % Low 36.0 - 48.0 % [facility] Hemoglobin (Bld) [Mass/Vol] 9.8 g/dL Low 12.0 - 16.0 g/dL [facility] Interpretation and review of laboratory results Abnormal [facility] MCH (RBC) [Entitic mass] 25.7 pg Low 26.7 - 34.0 pg [facility] MCHC (RBC) [Mass/Vol] 31.9 g/dL 29.9 - 35.2 g/dL [facility] MCV (RBC) [Entitic vol] 80.4 fL Low 81.0 - 99.0 fL [facility] Platelet mean volume (Bld) [Entitic vol] 11.6 fL 9.5 - 13.5 fL [facility] TBH PLT 277 [facility] TB RBC 3.82 Low [facility] TB WBC 13.3 High [facility] Urinalysis macro (dipstick) panel (U)on 08-01-2024 Bilirubin, UA Negative Negative - 4(70) +++ mg/dL [facility] Blood, UA Negative Negative - 50 Shahbaz/mcL [facility] Clarity, UA Clear [facility] Color, UA Yellow [facility] Glucose, UA Negative Negative - 1999(110) ++++ mg/dL [facility] Interpretation and review of laboratory results Abnormal [facility] Ketones, UA Negative Negative - 160(16) ++++ mg/dL [facility] Leukocytes, UA Trace Negative - 500+++ Edward/mcL [facility] Nitrite, UA Negative Negative - Positive [facility] pH, UA 7 5 - 9 [facility] Protein, UA Negative Negative - 1999(20) ++++ mg/dL [facility] Spec Grav, UA 1.01 1 - 1.03 [facility] Urobilinogen, UA 0.2 0.2 - 12 mg/dL [facility] MLR HEMOGLOBIN A1Con 024 Glucose [Mass/Vol] 111 mg/dL [facility] HbA1c (Bld) [Mass fraction] 5.5 % 4.5 - 6.2 % [facility] Comment on above: ADA RECOMMENDED LIMI T 4.0 - 6.0 ADA THERAPEUTIC TARGET < 7.0 ACTION SUGGESTED > 7.0 [facility] Urinalysis macro (dipstick) panel (U)on 07-18-2024 Bilirubin, UA Negative Negative - 4(70) +++ mg/dL [facility] Blood, UA Negative Negative - 50 Shahbaz/mcL [facility] Clarity, UA Clear [facility] Color, UA Yellow [facility] Glucose, UA Negative Negative - 1999(110) ++++ mg/dL [facility] Interpretation and review of laboratory results Abnormal [facility] Ketones, UA Negative Negative - 160(16) ++++ mg/dL [facility] Leukocytes, UA Trace Negative - 500+++ Edward/mcL [facility] Nitrite, UA Negative Negative - Positive [facility] pH, UA 7 5 - 9 [facility] Protein, UA Negative Negative - 1999(20) ++++ mg/dL [facility] Spec Grav, UA 1.015 1 - 1.03 [facility] Urobilinogen, UA 0.2 0.2 - 12 mg/dL Count includes the [facility] URETHRITIS/DISCHARGE PLUS VA GINITIS (HTRX)on 04-12-2024 ATOPOBIUM VAGINAE 19.927 Abnormal [facility] ATOPOBIUM VAGINAE Detected Abnormal [facility] BVAB 2,3 (BACTERIAL VAGINOSIS ASSOCIATED BACTERIA 2, 3); MOBILUNCUS SPP 0.000 [facility] BVAB 2,3 (BACTERIAL VAGINOSIS ASSOCIATED BACTERIA 2, 3); MOBILUNCUS SPP Not detected [facility] OMY ALBICANS, PARAPSILOSIS, TROPICALIS 0.000 [facility] MOY ALBICANS, PARAPSILOSIS, TROPICALIS Not detected [facility] MOY GLABRATA 0.000 [facility] MOY GLABRATA Not detected [facility] MOY KRUSEI 0.000 [facility] MOY KRUSEI Not detected [facility] CHLAMYDIA TRACHOMATIS 0.000 [facility] CHLAMYDIA TRACHOMATIS Not detected [facility] GARDNERELLA VAGINALIS 20.450 Abnormal [facility] GARDNERELLA VAGINALIS Detected Abnormal [facility] Interpretation and review of laboratory results Abnormal [facility] MEGASPHAERA (TYPES 1, 2) 0.000 [facility] MEGASPHAERA (TYPES 1, 2) Not detected [facility] MYCOPLASMA GENITALIUM 0.000 [facility] MYCOPLASMA GENITALIUM Not detected [facility] NEISSERIA GONORRHOEAE 0.000 [facility] NEISSERIA GONORRHOEAE Not detected [facility] TET B, TET M 18.992 Abnormal [facility] TET B, TET M Detected Abnormal [facility] TRICHOMONAS VAGINALIS 0.000 [facility] TRICHOMONAS VAGINALIS Not detected Count includes the [facility] ALL CBC WITH AUTO DIFFon BASOPHILS ABSOLUTE AUTO 0.0 [facility] Basophils/100 WBC (Bld) 0.2 % 0.2 - 2.0 % [facility] Eosinophils/100 WBC (Bld) 0.9 % 0.9 - 7.0 % [facility] Erythrocyte distribution width (RBC) [Ratio] 13.4 % 11.0 - 15.0 % [facility] Hematocrit (Bld) [Volume fraction] 33.8 % Low 36.0 - 48.0 % [facility] Hemoglobin (Bld) [Mass/Vol] 11.3 g/dL Low 12.0 - 16.0 g/dL [facility] IMMATURE GRANULOCYTES ABS AUTO 0.11 High [facility] Immature granulocytes/100 WBC (Bld) 0.8 % High 0.0 - 0.5 % [facility] Interpretation and review of laboratory results Abnormal [facility] LYMPHOCYTES ABSOLUTE AUTO 2.3 [facility] Lymphocytes/100 WBC (Bld) 17.5 % Low 20.5 - 60.0 % [facility] MCH (RBC) [Entitic mass] 27.2 pg 26.7 - 34.0 pg [facility] MCHC (RBC) [Mass/Vol] 33.4 g/dL 29.9 - 35.2 g/dL [facility] MCV (RBC) [Entitic vol] 81.3 fL 81.0 - 99.0 fL [facility] MONOCYTES ABSOLUTE AUTO 0.7 [facility] Monocytes/100 WBC (Bld) 5.4 % 1.7 - 12.0 % [facility] NEUTROPHILS ABSOLUTE AUTO 10.0 High [facility] Neutrophils/100 WBC (Bld) 75.2 % High 43.0 - 75.0 % [facility] Platelet mean volume (Bld) [Entitic vol] 10.7 fL 9.5 - 13.5 fL [facility] TBH EO # 0.1 [facility] TBH PLT 262 [facility] TB RBC 4.16 Low [facility] WBC 13.3 High [facility] Urinalysis macro (dipstick) panel (U)on 04-11-2024 Bilirubin, UA Negative Negative - 4(70) +++ mg/dL [facility] Blood, UA Negative Negative - 50 Shahbaz/mcL [facility] Clarity, UA Clear [facility] Color, UA Yellow [facility] Glucose, UA Negative Negative - 1999(110) ++++ mg/dL [facility] Interpretation and review of laboratory results Normal [facility] Ketones, UA Negative Negative - 160(16) ++++ mg/dL [facility] Leukocytes, UA Negative Negative - 500+++ Edward/mcL [facility] Nitrite, UA Negative Negative - Positive [facility] pH, UA 6.5 5 - 9 [facility] Protein, UA Negative Negative - 1999(20) ++++ mg/dL [facility] Spec Grav, UA 1.015 1 - 1.03 [facility] Urobilinogen, UA 0.2 0.2 - 12 mg/dL Count includes the [facility] GLUCOSE - 1HRon 12-10-2022 Glucose [Mass/Vol] 98 mg/dL Normal 74-106 [facility] Comment on above: Performed By: #### G LU1 #### [facility] [address] [place] [address] Dr. Sara Matos HEMOGRAM AND PLATELon 2022 Hematocrit (Bld) [Volume fraction] 33.8 % Critically low 36.0-48.0 [facility] Comment on above: Performed By: #### T SH #### [facility] [address] [place] [address] Dr. Sara Matos Hemoglobin (Bld) [Mass/Vol] 11.1 g/dL Critically low 12.0-16.0 [facility] Comment on above: Performed By: #### T SH #### [facility] [address] [place] [address] Dr. Sara Matos MCH (RBC) [Entitic mass] 28.6 pg Normal 26.7-34.0 [facility] Comment on above: Performed By: #### T SH #### [facility] [address] [place] [address] Dr. Sara Matos MCHC (RBC) [Mass/Vol] 32.8 g/dL Normal 29.9-35.2 [facility] Comment on above: Performed By: #### T SH #### [facility] [address] [place] [address] Dr. Sara Matos MCV (RBC) [Entitic vol] 87.1 fL Normal 81.0-99.0 [facility] Comment on above: Performed By: #### T SH #### [facility] [address] [place] [address] Dr. Sara Matos PLT 188 103/ul Normal 150-450 [facility] Comment on above: Performed By: #### T SH #### [facility] [address] [place] [address] Dr. Sara Matos RBC 3.88 106/ul Critically low 4.20-5.40 [facility] Comment on above: Performed By: #### T SH #### [facility] [address] [place] [address] Dr. Sara Matos WBC 9.8 103/ul Normal 4.0-11.0 [facility] Comment on above: Performed By: #### T #### [facility] [address] [address] [address] Sara Matos US PREG ANATOMY SINGLEon [...] LA O Date: 2022-12-02 15:25 Normal [facility] HEP B SURFACE ANTIGEN SCREEN on 11-18-2022 HBsAg Screen Negative Normal Negative [facility] Comment on above: Performed By: #### E JAIME SINHA #### [facility] [address] [place], [place] [address] Dr. Sara Matos HEPATITIS C VIRUS AB W/ REFL EX QUANTon 11-18-2022 HCV AB Non-Reactive Normal Non Reactive [facility] Comment on above: Performed By: #### E RUR, UMICRO #### [facility] [address] [place] [address] Dr. Sara Matos Interpretation: Comment Normal [facility] Comment on above: Result Comment: Not infected with HCV unless early or acute infection is suspected (which may be delayed in an immunocompromised individual), or other evidence exists to indicate HCV infection. Performed By: #### E RUR, UMICRO #### [facility] [address] [place] [address] Dr. Sara Matos HIV 1 AND 2 WITH REFLEXon HIV Screen 4th Generation wRfx Non-Reactive Normal Non Reactive [facility] Comment on above: Result Comment: HIV Negative HIV-1/HIV-2 antibodies and HIV-1 p24 antigen were NOT detected. There is no laboratory evidence of HIV infection. Performed By: #### E LONDONR, UMJONIRO #### [facility] [address] [place] [address] Dr. Sara Matos RPR QUANTon 11-18-2022 Rapid Plasma Reagin, Quant Non-Reactive Normal NonRea<1:1 [facility] Comment on above: Result Comment: Plea se Note: This test does not meet current guidelines for screening and diagnosis of syphilis. This test is intended for following treatment response in patients being treated for syphilis infection. To screen for syphilis infection, a reflex cascade that includes both RPR and a treponema-specific assay should be utilized, such as Treponema pallidum (Syphilis) Screening [place] (286911) or Rapid Plasma Reagin (RPR) Test With Reflex to Quantitative RPR and Confirmatory Treponema pallidum Antibodies (709831). Performed By: #### T SH #### [facility] [address] [place] [address] Dr. Sara Matos RUBELLA AB IGGon 11-18-2022 Rubella Antibodies, IgG 3.67 index Normal Immune >0.99 [facility] Comment on above: Result Comment: Non- immune <0.90 Equivocal 0.90 - 0.99 Immune >0.99 Performed By: #### T SH #### [facility] [address] [place] [address] Dr. Sara Matos BOX TEST SENT OUTon 11-18-19 23 SENT TO REF LAB 11/17/2022 Normal [facility] Comment on above: Performed By: #### T SH #### [facility] [address] [place] [address] Dr. Sara Matos CBC AUTO DIFFon 11-17-2022 BASO # 0.0 103/ul Normal 0.0-0.1 [facility] Comment on above: Performed By: #### KACY GODWINRO #### [facility] [address] [place] [address] Dr. Sara Matos Basophils/100 WBC (Bld) 0.4 % Normal 0.2-2.0 [facility] Comment on above: Performed By: #### FLORENTINO GODWINICRO #### [facility] [address] [place] [address] Dr. Sara Matos EO # 0.1 103/ul Normal 0.0-0.7 [facility] Comment on above: Performed By: #### FLORENTINO GODWINICRO #### [facility] [address] [place] [address] Dr. Sara Matos Eosinophils/100 WBC (Bld) 1.3 % Normal 0.9-7.0 [facility] Comment on above: Performed By: #### FLORENTINO GODWINICRO #### [facility] [address] [place] [address] Dr. Sara Matos Erythrocyte distribution width (RBC) [Ratio] 12.3 % Normal 11.0-15.0 [facility] Comment on above: Performed By: #### Sha SINHA, UMICRO #### [facility] [address] [place] [address] Dr. Sara Matos Hematocrit (Bld) [Volume fraction] 33.6 % Critically low 36.0-48.0 [facility] Comment on above: Performed By: #### Sha SINHA, UMICRO #### [facility] [address] [place] [address] Dr. Sara Matos Hemoglobin (Bld) [Mass/Vol] 11.3 g/dL Critically low 12.0-16.0 [facility] Comment on above: Performed By: #### FLORENTINO GODWINICRO #### [facility] [address] [place] [address] Dr. Sara Matos IG # 0.04 10e3/ul Critically high 0.00-0.03 [facility] Comment on above: Performed By: #### Sha SINHA UMICRO #### [facility] [address] [place] [address] Dr. Sara Matos IG % 0.4 % Normal 0.0-0.5 [facility] Comment on above: Performed By: #### Sha SINHA UMICRO #### [facility] [address] [place] [address] Dr. Sara Matos LYMPH # 1.7 103/ul Normal 1.2-3.8 [facility] Comment on above: Performed By: #### FLORENTINO GODWINICRO #### [facility] [address] [place] [address] Dr. Sara Matos Lymphocytes/100 WBC (Bld) 16.7 % Critically low 20.5-60.0 [facility] Comment on above: Performed By: #### FLORENTINO GODWINICRO #### [facility] [address] [place] [address] Dr. Sara Matos MANUAL DIFF REQ NO Normal [facility] Comment on above: Performed By: #### FLORENTINO GODWINICRO #### [facility] [address] [place] [address] Dr. Sara Matos MCH (RBC) [Entitic mass] 28.8 pg Normal 26.7-34.0 [facility] Comment on above: Performed By: #### Sha SINHA UMICRO #### [facility] [address] [place] [address] Dr. Sara Matos MCHC (RBC) [Mass/Vol] 33.6 g/dL Normal 29.9-35.2 [facility] Comment on above: Performed By: #### Sha SINHA UMICRO #### [facility] [address] [place], [place] [id number] Dr. Sara Matos MCV (RBC) [Entitic vol] 85.5 fL Normal 81.0-99.0 [facility] Comment on above: Performed By: #### FLORENTINO GODWINICRO #### [facility] [address] [place] [address] Dr. Sara Matos MONO # 0.6 103/ul Normal 0.3-0.8 [facility] Comment on above: Performed By: #### Sha SINHA UMICRO #### [facility] [address] [place] [address] Dr. Sara Matos Monocytes/100 WBC (Bld) 5.9 % Normal 1.7-12.0 [facility] Comment on above: Performed By: #### Sha SINHA UMICRO #### [facility] [address] [place] [address] Dr. Sara Matos NEUT # 7.7 103/ul Critically high 1.4-6.5 [facility] Comment on above: Performed By: #### Sha SINHA ICRO #### [facility] [address] [place] [address] Dr. Sara Matos Neutrophils/100 WBC (Bld) 75.3 % Critically high 43.0-75.0 [facility] Comment on above: Performed By: #### Sha SINHA UMICRO #### [facility] [address] [place] [address] Dr. Sara Matos Platelet mean volume (Bld) [Entitic vol] 11.2 fL Normal 9.5-13.5 [facility] Comment on above: Performed By: #### Sha SINHA UMICRO #### [facility] [address] [place] [address] Dr. Sara Matos PLT 217 103/ul Normal 150-450 [facility] Comment on above: Performed By: #### Sha SINHA, UMICRO #### [facility] [address] [place] [address] Dr. Sara Matos RBC 3.93 106/ul Critically low 4.20-5.40 [facility] Comment on above: Performed By: #### KACY GODWINRO #### [facility] [address] [address] [address] Sara Matos WBC 10.2 103/ul Normal 4.0-11.0 [facility] Comment on above: Performed By: #### E KACY SINHARO #### [facility] [address] [address] [address] Sara Matos CULTURE URINEon 11-17-2022 CULTURE URINE Culture Observations : HEAVY GROWTH OF MIXED GENITAL JP. NO POTENTIAL PATHOGENS SEEN. Normal [facility] Comment on above: Performed By: #### KACY GODWINRO #### [facility] [address] [place] [address] Dr. Sara Matos DRUG SCREEN RAPID (URINE)on 11-17-2022 AMP Negative Normal NEGATIVE [facility] Comment on above: Performed By: #### P REGU, DRUGRPD #### [facility] [address] [place] [address] Dr. Sara Matos BAR Negative Normal NEGATIVE [facility] Comment on above: Performed By: #### P REGU, DRUGRPD #### [facility] [address] [address] [address] Sara Matos BUP Negative Normal NEGATIVE [facility] Comment on above: Performed By: #### P REGU, DRUGRPD #### [facility] [address] [place] [address] Dr. aSra Matos BZO Negative Normal NEGATIVE [facility] Comment on above: Performed By: #### P REGU, DRUGRPD #### [facility] [address] [place] [address] Dr. Sara Matos COLLEEN Negative Normal NEGATIVE [facility] Comment on above: Performed By: #### P REGU, DRUGRPD #### [facility] [address] [place] [address] Dr. Sara Matos CUT-OFFS SEE BELOW Normal [facility] Comment on above: Result Comment: AMP [...] Performed By: #### P REGU, DRUGRPD #### [facility] [address] [place] [address] Dr. Sara Matos DRUG CUT HEADER DRUG CLASS TEST SYSTEM CUT-OFF CONCENTRATIONS ARE FOLLOWS: Normal [facility] Comment on above: Performed By: #### P REGU, DRUGRPD #### [facility] [address] [place] [address] Dr. Sara Matos mAMP Negative Normal NEGATIVE [facility] Comment on above: Performed By: #### P REGU, DRUGRPD #### [facility] [address] [place] [address] Dr. Sara Matos MTD Negative Normal NEGATIVE [facility] Comment on above: Performed By: #### P REGU, DRUGRPD #### [facility] [address] [place] [address] Dr. Sara Matos OPI Negative Normal NEGATIVE [facility] Comment on above: Performed By: #### P REGU, DRUGRPD #### [facility] [address] [place] [address] Dr. Sara Matos OXY Negative Normal NEGATIVE [facility] Comment on above: Performed By: #### P REGU, DRUGRPD #### [facility] [address] [place] [address] Dr. Sara Matos PCP Negative Normal NEGATIVE [facility] Comment on above: Performed By: #### P REGU, DRUGRPD #### [facility] [address] [place] [address] Dr. Sara Matos PPX Negative Normal NEGATIVE [facility] Comment on above: Performed By: #### P REGU, DRUGRPD #### [facility] [address] [address] [address] Sara Matos TCA Negative Normal NEGATIVE [facility] Comment on above: Performed By: #### P REGU, DRUGRPD #### [facility] [address] [address] [address] Sara Matos THC Negative Normal NEGATIVE [facility] Comment on above: Performed By: #### P REGU, DRUGRPD #### [facility] [address] [address] [address] Sara Matos GLYCOHEMOGLOBIN A1Con 2022 ADA RECOMMENDATION SEE BELOW Normal [facility] Comment on above: Result Comment: ADA RECOMMENDED LIMIT 4.0 - 6.0 ADA THERAPEUTIC TARGET < 7.0 ACTION SUGGESTED > 7.0 Performed By: #### A 1C #### [facility] [address] [place] [address] Dr. Sara Matos Glucose [Mass/Vol] 85 mg/dL Normal [facility] Comment on above: Performed By: #### A 1C #### [facility] [address] [address] [address] Sara Matos HbA1c (Bld) [Mass fraction] 4.6 % Normal 4.5-6.2 [facility] Comment on above: Performed By: #### A 1C #### [facility] [address] [place] [address] Dr. Sara Matos URon 11-17-2022 , QUAL Positive Abnormal NEGATIVE [facility] Comment on above: Performed By: #### P REGU, DRUGRPD #### [facility] [address] [address] [address] Sara Matos TYPE AND SCREENon 11-17-2022 TYPE AND SCREEN Negative Normal [facility] Comment on above: Performed By: #### JAIME GODWIN #### [facility] [address] [address] [address] Sara Matos US PREG DATING >[id number] [...] LA O Date: 2022-09-07 10:38 Normal [facility] CHLAMYDIA/GONOCOCCUS DEENA (SW AB/URINE/PAPon 06-10-2022 Chlamydia trachomatis, DEENA Negative Normal Negative [facility] Comment on above: Performed By: #### T SH #### [facility] [address] [place] [address] Dr. Sara Matos Neisseria gonorrhoeae, DEENA Negative Normal Negative [facility] Comment on above: Performed By: #### T SH #### [facility] [address] [place] [address] Dr. Sara Matos GENITAL CULTUREon 06-09-2022 Genital Culture, Routine NOBACT Normal [facility] Comment on above: Result Comment: [...] Performed By: #### E JAIME SINHA #### [facility] [address] [place] [address] Dr. Sara Matos ER URINE PROFILEon Bilirubin Ql (U) Negative Normal NEGATIVE [facility] Comment on above: Performed By: #### Sha SINHA UMICRO #### [facility] [address] [place] [address] Dr. Sara Matos Clarity (U) CLEAR Normal CLEAR [facility] Comment on above: Performed By: #### Sha SINHA UMICRO #### [facility] [address] [place] [address] Dr. Sara Matos Color (U) LT. YELLOW Normal YELLOW [facility] Comment on above: Performed By: #### Sha SINHA UMICRO #### [facility] [address] [place] [address] Dr. Sara Matos ERUAHD A micrscopic examination will be performed if indicated. Normal [facility] Comment on above: Performed By: #### Sha SINHA UMICRO #### [facility] [address] [place] [address] Dr. Sara Matos Glucose Ql (U) Negative Normal NEGATIVE [facility] Comment on above: Performed By: #### Sha SINHA UMICRO #### [facility] [address] [place] [address] Dr. Sara Matos Hemoglobin Ql (U) Negative Normal NEGATIVE [facility] Comment on above: Performed By: #### Sha SINHA UMICRO #### [facility] [address] [place] [address] Dr. Sara Matos Ketones Ql (U) Negative Normal NEGATIVE [facility] Comment on above: Performed By: #### Sha SINHA UMICRO #### [facility] [address] [place] [address] Dr. Sara Matos LEUKOCYTES TRACE Abnormal NEGATIVE [facility] Comment on above: Performed By: #### Sha SINHA UMICRO #### [facility] [address] [place] [address] Dr. Sara Matos Nitrite Ql (U) Negative Normal NEGATIVE [facility] Comment on above: Performed By: #### Sha SINHA UMICRO #### [facility] [address] [place] [address] Dr. Sara Matos pH (U) 6.0 [pH] Normal 5-9 [facility] Comment on above: Performed By: #### Sha SINHA UMICRO #### [facility] [address] [place] [address] Dr. Sara Matos SPEC GRAVITY 1.015 Normal 1.005-<=1.025 [facility] Comment on above: Performed By: #### Sha SINHA UMICRO #### [facility] [address] [place] [address] Dr. Sara Matos UA PROTEIN Negative Normal NEGATIVE/ TRACE [facility] Comment on above: Performed By: #### Sha SINHA UMICRO #### [facility] [address] [place] [address] Dr. Sara Matos UR MICRO IND INDICATED Normal [facility] Comment on above: Performed By: #### Sha SINHA UMICRO #### [facility] [address] [place] [address] Dr. Sara Matos Urobilinogen Qn (U) 0.2 {Ana'U}/dL Normal 0.2 - 1. 0 [facility] Comment on above: Performed By: #### Sha SINHA UMICRO #### [facility] [address] [place] [address] Dr. Sara Matos URon 06-06-2022 , QUAL Negative Normal NEGATIVE [facility] Comment on above: Performed By: #### P REGU #### [facility] [address] [place] [address] Dr. Sara Matos URINE MICROSCOPIC ONLYon BACTERIA NONE SEEN Normal NONE SEEN [facility] Comment on above: Performed By: #### Sha SINHA UMICRO #### [facility] [address] [place] [address] Dr. Sara Matos Bacteria identified Cx Nom (U) NOT INDICATED Normal [facility] Comment on above: Performed By: #### Sha SINHA UMICRO #### [facility] [address] [place] [address] Dr. Sara Matos CAST NONE SEEN Normal NONE SEEN [facility] Comment on above: Performed By: #### E RUR, UMICRO #### [facility] [address] [address] [address] Sara Matos Crystals LM Nom (Urine sed) NONE SEEN Normal NONE SEEN [facility] Comment on above: Performed By: #### E RUR, UMICRO #### [facility] [address] [place] [address] Dr. Sara Matos Epithelial cells LM Ql (Urine sed) FEW Abnormal NONE SEEN /RARE [facility] Comment on above: Performed By: #### E RUR, UMICRO #### [facility] [address] [place] [address] Dr. Sara Matos MUCOUS NONE SEEN Normal NONE SEEN [facility] Comment on above: Performed By: #### E RUR, UMICRO #### [facility] [address] [place] [address] Dr. Sara Matos RBC NONE SEEN Abnormal 0-2 [facility] Comment on above: Performed By: #### Sha SINHA, UMICRO #### [facility] [address] [place] [address] Dr. Sara Matos WBC 0-2 Abnormal NONE SEEN [facility] Comment on above: Performed By: #### E BHARATH, UMICRO #### [facility] [address] [place] [address] Dr. Sara Matos WET PREPon 06-06-2022 CLUE CELLS NONE SEEN Normal NONE SEEN [facility] Comment on above: Performed By: #### T SH #### [facility] [address] [place] [address] Dr. Sara Matos FUNGAL ELEMENTS NONE SEEN Normal NONE SEEN [facility] Comment on above: Performed By: #### T SH #### [facility] [address] [place] [address] Dr. Sara Matos RBC -WET PREP NONE SEEN Normal NONE SEEN [facility] Comment on above: Performed By: #### T SH #### [facility] [address] [place] [address] Dr. Sara Matos TRICHOMONAS NONE SEEN Normal NONE SEEN [facility] Comment on above: Performed By: #### T SH #### [facility] [address] [address] [address] Sara Matos WBC- WET PREP FEW Abnormal NONE SEEN [facility] Comment on above: Performed By: #### T SH #### [facility] [address] [address] [address] Sara Matos WET PREP BACTERIA NONE SEEN Normal NONE SEEN [facility] Comment on above: Performed By: #### T SH #### [facility] [address] [address] [address] Sara Matos Abstracton 04-25-2022 Abstract [id number] Astrid Montague 1995 Date Provider Department Center 04/25/2022 LILIAN AGUIRRE DAISY [facility] Family History Problem Relation Age of Onset Heart attack Maternal Grandmother Coronary artery disease Maternal Grandmother Family Status - Relation Status Age at Maternal Grandmother Paternal Grandmother Normal [facility] Abstracton 04-22-2022 Abstract [id number] Astrid Montague 1995 Date Provider Department Center 04/22/2022 YURIDIA CARO DAISY [facility] Family History Problem Relation Age of Onset Heart attack Paternal Grandmother Family Status - Relation Status Age at Paternal Grandmother Normal [facility] US GUY DOP LEG LTon 04-01-20 [...] LA O Date: 2022-04-01 17:05 Normal [facility] METANEPHRINES PLASMA FREEon 02-04-2022 Metanephrine, Pl 13.7 pg/mL Normal 0.0-88.0 [facility] Comment on above: Performed By: #### P REGU, DRUGRPD #### [facility] [address] [address] [address] Sara Matos Normetanephrine, Pl 45.6 pg/mL Normal 0.0-210.1 [facility] Comment on above: Performed By: #### P URIEL, DRUGRPD #### [facility] [address] [place] [address] Dr. Sara Matos CARDIAC ANTONY ADMITon 022 CK [Catalytic activity/Vol] 67 U/L Normal 26-192 [facility] Comment on above: Performed By: #### T SH #### [facility] [address] [place] [address] Dr. Sara Matos CK.MB [Mass/Vol] 0.99 ng/mL Normal <=3.60 [facility] Comment on above: Performed By: #### T SH #### [facility] [address] [place] [address] Dr. Sara Matos HSTROP 4.7 pg/mL Normal 4.0-51.3 [facility] Comment on above: Result Comment: CUT- OFF POINTS HAVE BEEN ESTABLISHED BASED ON THE FOURTH UNIVERSAL DEFINITIONS OF MYOCARDIAL INFARCTION. THE UPPER REFERENCE LIMIT (URL) OF TROPONIN, DEFINED THE 99TH PERCENTILE OF cTnI DISTRIBUTION IN A REFERENCE POPULATION, HAS BEEN CONFIRMED THE DECISION THRESHOLD FOR [place] DIAGNOSIS. Performed By: #### T SH #### [facility] [address] [place] [address] Dr. Sara Matos ELENA 34 ng/mL Normal 9-82 [facility] Comment on above: Performed By: #### T SH #### [facility] [address] [place] [address] Dr. Sara Matos CBC AUTO DIFFon 01-30-2022 BASO # 0.1 103/ul Normal 0.0-0.1 [facility] Comment on above: Performed By: #### T SH #### [facility] [address] [place] [address] Dr. Sara Matos Basophils/100 WBC (Bld) 0.8 % Normal 0.2-2.0 [facility] Comment on above: Performed By: #### T SH #### [facility] [address] [place] [address] Dr. Sara Matos EO # 0.1 103/ul Normal 0.0-0.7 [facility] Comment on above: Performed By: #### T SH #### [facility] [address] [place] [address] Dr. Sara Matos Eosinophils/100 WBC (Bld) 0.6 % Critically low 0.9-7.0 [facility] Comment on above: Performed By: #### T SH #### [facility] [address] [place] [address] Dr. Sara Matos Erythrocyte distribution width (RBC) [Ratio] 13.6 % Normal 11.0-15.0 [facility] Comment on above: Performed By: #### T SH #### [facility] [address] [place] [address] Dr. Sara Matos Hematocrit (Bld) [Volume fraction] 40.4 % Normal 36.0-48.0 [facility] Comment on above: Performed By: #### T SH #### [facility] [address] [place] [address] Dr. Sara Matos Hemoglobin (Bld) [Mass/Vol] 13.0 g/dL Normal 12.0-16.0 [facility] Comment on above: Performed By: #### T SH #### [facility] [address] [place] [address] Dr. Sara Matos IG # 0.03 10e3/ul Normal 0.00-0.03 [facility] Comment on above: Performed By: #### T SH #### [facility] [address] [place] [address] Dr. Sara Matos IG % 0.3 % Normal 0.0-0.5 [facility] Comment on above: Performed By: #### T SH #### [facility] [address] [place] [address] Dr. Sara Matos LYMPH # 2.6 103/ul Normal 1.2-3.8 [facility] Comment on above: Performed By: #### T SH #### [facility] [address] [place] [address] Dr. Sara Matos Lymphocytes/100 WBC (Bld) 26.5 % Normal 20.5-60.0 [facility] Comment on above: Performed By: #### T SH #### [facility] [address] [place] [address] Dr. Sara Matos MANUAL DIFF REQ NO Normal [facility] Comment on above: Performed By: #### T SH #### [facility] [address] [place] [address] Dr. Sara Matos MCH (RBC) [Entitic mass] 26.9 pg Normal 26.7-34.0 [facility] Comment on above: Performed By: #### T SH #### [facility] [address] [place] [address] Dr. Sara Matos MCHC (RBC) [Mass/Vol] 32.2 g/dL Normal 29.9-35.2 [facility] Comment on above: Performed By: #### T SH #### [facility] [address] [place] [address] Dr. Sara Matos MCV (RBC) [Entitic vol] 83.6 fL Normal 81.0-99.0 [facility] Comment on above: Performed By: #### T SH #### [facility] [address] [place] [address] Dr. Sara Matos MONO # 0.6 103/ul Normal 0.3-0.8 [facility] Comment on above: Performed By: #### T SH #### [facility] [address] [place] [address] Dr. Sara Matos Monocytes/100 WBC (Bld) 6.4 % Normal 1.7-12.0 [facility] Comment on above: Performed By: #### T SH #### [facility] [address] [place] [address] Dr. Sara Matos NEUT # 6.3 103/ul Normal 1.4-6.5 [facility] Comment on above: Performed By: #### T SH #### [facility] [address] [place] [address] Dr. Sara Matos Neutrophils/100 WBC (Bld) 65.4 % Normal 43.0-75.0 [facility] Comment on above: Performed By: #### T SH #### [facility] [address] [place] [address] Dr. Sara Matos Platelet mean volume (Bld) [Entitic vol] 11.8 fL Normal 9.5-13.5 [facility] Comment on above: Performed By: #### T SH #### [facility] [address] [place] [address] Dr. Sara Matos PLT 218 103/ul Normal 150-450 [facility] Comment on above: Performed By: #### T SH #### [facility] [address] [place] [address] Dr. Sara Matos RBC 4.83 106/ul Normal 4.20-5.40 [facility] Comment on above: Performed By: #### T SH #### [facility] [address] [place] [address] Dr. Sara Matos WBC 9.6 103/ul Normal 4.0-11.0 [facility] Comment on above: Performed By: #### T SH #### [facility] [address] [place] [address] Dr. Sara Matos ER URINE PROFILEon 2 Bilirubin Ql (U) Negative Normal NEGATIVE [facility] Comment on above: Performed By: #### KACY GODWINRO #### [facility] [address] [place] [address] Dr. Sara Matos Clarity (U) CLEAR Normal CLEAR [facility] Comment on above: Performed By: #### KACY GODWINRO #### [facility] [address] [place] [address] Dr. Sara Matos Color (U) LT. YELLOW Normal YELLOW [facility] Comment on above: Performed By: #### KACY GODWINRO #### [facility] [address] [place] [address] Dr. Sara BUCKNER A micrscopic examination will be performed if indicated. Normal [facility] Comment on above: Performed By: #### Sha SINHA UMICRO #### [facility] [address] [address] [address] Sara Matos Glucose Ql (U) Negative Normal NEGATIVE [facility] Comment on above: Performed By: #### Sha SINHA UMICRO #### [facility] [address] [address] [address] Sara Matos Hemoglobin Ql (U) LARGE Abnormal NEGATIVE [facility] Comment on above: Performed By: #### Sha SINHA UMICRO #### [facility] [address] [address] [address] Sara Matos Ketones Ql (U) Negative Normal NEGATIVE [facility] Comment on above: Performed By: #### Sha SINHA UMICRO #### [facility] [address] [place] [address] Dr. Sara Matos LEUKOCYTES Negative Normal NEGATIVE [facility] Comment on above: Performed By: #### Sha SINHA UMICRO #### [facility] [address] [place] [address] Dr. Sara Matos Nitrite Ql (U) Negative Normal NEGATIVE [facility] Comment on above: Performed By: #### Sha SINHA UMICRO #### [facility] [address] [place] [address] Dr. Sara Matos pH (U) 6.0 [pH] Normal 5-9 [facility] Comment on above: Performed By: #### Sha SINHA UMICRO #### [facility] [address] [address] [address] Sara Matos SPEC GRAVITY <=1.005 Abnormal 1.005-<=1.025 [facility] Comment on above: Performed By: #### Sha SINHA UMICRO #### [facility] [address] [place] [address] Dr. Sara Matos UA PROTEIN Negative Normal NEGATIVE/ TRACE [facility] Comment on above: Performed By: #### Sha SINHA UMICRO #### [facility] [address] [place] [address] Dr. Sara Matos UR MICRO IND INDICATED Normal [facility] Comment on above: Performed By: #### JAIME GODWIN #### [facility] [address] [place] [address] Dr. Sara Matos Urobilinogen Qn (U) 0.2 {Ana'U}/dL Normal 0.2 - 1. 0 [facility] Comment on above: Performed By: #### JAIME GODWIN #### [facility] [address] [place] [address] Dr. Sara Matos PREG HCG QUALon 01-30-2022 , QUAL Negative Normal NEGATIVE [facility] Comment on above: Performed By: #### JAIME GODWIN #### [facility] [address] [place] [address] Dr. Sara Matos PROF 14(COMP METB)on 022 Albumin [Mass/Vol] 4.3 g/dL Normal 3.4-5.0 [facility] Comment on above: Performed By: #### T SH #### [facility] [address] [place] [address] Dr. Sara Matos Albumin/Globulin [Mass ratio] 1.2 {ratio} Normal [facility] Comment on above: Performed By: #### T SH #### [facility] [address] [place] [address] Dr. Sara Matos ALP [Catalytic activity/Vol] 63 U/L Normal 46-116 [facility] Comment on above: Performed By: #### T SH #### [facility] [address] [place] [address] Dr. Sara Matos ALT [Catalytic activity/Vol] 35 U/L Normal 14-59 [facility] Comment on above: Performed By: #### T SH #### [facility] [address] [place] [address] Dr. Sara Matos Anion gap [Moles/Vol] 9.7 mmol/L Normal [facility] Comment on above: Performed By: #### T SH #### [facility] [address] [place] [address] Dr. Sara Matos AST [Catalytic activity/Vol] 19 U/L Normal 15-37 [facility] Comment on above: Performed By: #### T SH #### [facility] [address] [place] [address] Dr. Sara Matos Bilirubin [Mass/Vol] 0.4 mg/dL Normal 0.2-1.0 [facility] Comment on above: Performed By: #### T SH #### [facility] [address] [place] [address] Dr. Sara Matos Calcium [Mass/Vol] 9.3 mg/dL Normal 8.5-10.1 [facility] Comment on above: Performed By: #### T SH #### [facility] [address] [place] [address] Dr. Sara Matos Chloride [Moles/Vol] 101 mmol/L Normal 98-107 [facility] Comment on above: Performed By: #### T SH #### [facility] [address] [place] [address] Dr. Sara Matos CO2 [Moles/Vol] 27.8 mmol/L Normal 21.0-32.0 [facility] Comment on above: Performed By: #### T SH #### [facility] [address] [place] [address] Dr. Sara Matos Creatinine [Mass/Vol] 0.78 mg/dL Normal 0.55-1.02 [facility] Comment on above: Performed By: #### T SH #### [facility] [address] [place] [address] Dr. Sara Matos EGFR-AF [place] >60 Normal >=60 [facility] Comment on above: Performed By: #### T SH #### [facility] [address] [place] [address] Dr. Sara Matos EGFR-NON AF [place] >60 Normal >=60 [facility] Comment on above: Performed By: #### T SH #### [facility] [address] [place] [address] Dr. Sara Matos Globulin (S) [Mass/Vol] 3.5 g/dL Normal [facility] Comment on above: Performed By: #### T SH #### [facility] [address] [place] [address] Dr. Sara Matos Glucose [Mass/Vol] 89 mg/dL Normal 74-106 [facility] Comment on above: Performed By: #### T SH #### [facility] [address] [place] [address] Dr. Sara Matos Potassium [Moles/Vol] 3.5 mmol/L Normal 3.5-5.1 [facility] Comment on above: Performed By: #### T SH #### [facility] [address] [place] [address] Dr. Sara Matos Protein [Mass/Vol] 7.8 g/dL Normal 6.4-8.2 [facility] Comment on above: Performed By: #### T SH #### [facility] [address] [place] [address] Dr. Sara Matos Sodium [Moles/Vol] 135 mmol/L Critically low 136-145 [facility] Comment on above: Performed By: #### T SH #### [facility] [address] [place] [address] Dr. Sara Matos Urea nitrogen [Mass/Vol] 6.0 mg/dL Critically low 7.0-18.0 [facility] Comment on above: Performed By: #### T SH #### [facility] [address] [place] [address] Dr. Sara Matos Urea nitrogen/Creatinine [Mass ratio] 7.7 mg/mg Normal [facility] Comment on above: Performed By: #### T SH #### [facility] [address] [place] [address] Dr. Sara Matos URINE MICROSCOPIC ONLYon BACTERIA NONE SEEN Normal NONE SEEN [facility] Comment on above: Performed By: #### E JAIME SINHA #### [facility] [address] [place] [address] Dr. Sara Matos Bacteria identified Cx Nom (U) NOT INDICATED Normal [facility] Comment on above: Performed By: #### Sha SINHA UMICRO #### [facility] [address] [place] [address] Dr. Sara Matos CAST NONE SEEN Normal NONE SEEN [facility] Comment on above: Performed By: #### Sha SINHA, UMICRO #### [facility] [address] [place] [address] Dr. Sara Matos Crystals LM Nom (Urine sed) NONE SEEN Normal NONE SEEN [facility] Comment on above: Performed By: #### Sha SINHA UMICRO #### [facility] [address] [place] [address] Dr. Sara Matos Epithelial cells LM Ql (Urine sed) RARE Normal NONE SEEN /RARE [facility] Comment on above: Performed By: #### Sha SINHA UMICRO #### [facility] [address] [place] [address] Dr. Sara Matos MUCOUS NONE SEEN Normal NONE SEEN [facility] Comment on above: Performed By: #### Sha SINHA UMICRO #### [facility] [address] [place] [address] Dr. Sara Matos RBC 0-2 Normal 0-2 [facility] Comment on above: Performed By: #### Sha SINHA UMICRO #### [facility] [address] [place] [address] Dr. Sara Matos WBC 0-2 Abnormal NONE SEEN [facility] Comment on above: Performed By: #### Sha SINHA UMICRO #### [facility] [address] [place] [address] Dr. Sara Matos CBC AUTO DIFFon 01-24-2022 BASO # 0.1 103/ul Normal 0.0-0.1 [facility] Comment on above: Performed By: #### Sha SINHA UMICRO #### [facility] [address] [place] [address] Dr. Sara Matos Basophils/100 WBC (Bld) 0.5 % Normal 0.2-2.0 [facility] Comment on above: Performed By: #### KACY GODWINRO #### [facility] [address] [place] [address] Dr. Sara Matos EO # 0.0 103/ul Normal 0.0-0.7 [facility] Comment on above: Performed By: #### KACY GODWINRO #### [facility] [address] [place] [address] Dr. Sara Matos Eosinophils/100 WBC (Bld) 0.4 % Critically low 0.9-7.0 [facility] Comment on above: Performed By: #### KACY GODWINRO #### [facility] [address] [place] [address] Dr. Sara Matos Erythrocyte distribution width (RBC) [Ratio] 13.3 % Normal 11.0-15.0 [facility] Comment on above: Performed By: #### KACY GODWINRO #### [facility] [address] [place] [address] Dr. Sara Matos Hematocrit (Bld) [Volume fraction] 39.4 % Normal 36.0-48.0 [facility] Comment on above: Performed By: #### KACY GODWINRO #### [facility] [address] [place] [address] Dr. Sara Matos Hemoglobin (Bld) [Mass/Vol] 12.9 g/dL Normal 12.0-16.0 [facility] Comment on above: Performed By: #### KACY GODWINRO #### [facility] [address] [place] [address] Dr. Sara Matos IG # 0.03 10e3/ul Normal 0.00-0.03 [facility] Comment on above: Performed By: #### KACY GODWINRO #### [facility] [address] [place] [address] Dr. Sara Matos IG % 0.3 % Normal 0.0-0.5 [facility] Comment on above: Performed By: #### JAIME GODWIN #### [facility] [address] [place] [address] Dr. Sara Mtaos LYMPH # 2.8 103/ul Normal 1.2-3.8 [facility] Comment on above: Performed By: #### JAIME GODWIN #### [facility] [address] [place] [address] Dr. Sara Matos Lymphocytes/100 WBC (Bld) 25.3 % Normal 20.5-60.0 [facility] Comment on above: Performed By: #### KACY GODWINRO #### [facility] [address] [place] [address] Dr. Sara Matos MANUAL DIFF REQ NO Normal [facility] Comment on above: Performed By: #### KACY GODWINRO #### [facility] [address] [place] [address] Dr. Sara Matos MCH (RBC) [Entitic mass] 26.5 pg Critically low 26.7-34.0 [facility] Comment on above: Performed By: #### KACY GODWINRO #### [facility] [address] [place] [address] Dr. Sara Matos MCHC (RBC) [Mass/Vol] 32.7 g/dL Normal 29.9-35.2 [facility] Comment on above: Performed By: #### KACY GODWINRO #### [facility] [address] [place] [address] Dr. Sara Matos MCV (RBC) [Entitic vol] 80.9 fL Critically low 81.0-99.0 [facility] Comment on above: Performed By: #### KACY GODWINRO #### [facility] [address] [place] [address] Dr. Sara Matos MONO # 0.8 103/ul Normal 0.3-0.8 [facility] Comment on above: Performed By: #### KACY GODWINRO #### [facility] [address] [place] [address] Dr. Sara Matos Monocytes/100 WBC (Bld) 6.8 % Normal 1.7-12.0 [facility] Comment on above: Performed By: #### E RUR, UMICRO #### [facility] [address] [place] [address] Dr. Sara Matos NEUT # 7.4 103/ul Critically high 1.4-6.5 [facility] Comment on above: Performed By: #### Sha SINHA UMICRO #### [facility] [address] [place] [address] Dr. Sara Matos Neutrophils/100 WBC (Bld) 66.7 % Normal 43.0-75.0 [facility] Comment on above: Performed By: #### Sha SINHA UMICRO #### [facility] [address] [place] [address] Dr. Sara Matos Platelet mean volume (Bld) [Entitic vol] 11.3 fL Normal 9.5-13.5 [facility] Comment on above: Performed By: #### Sha SINHA UMICRO #### [facility] [address] [place] [address] Dr. Sara Matos PLT 281 103/ul Normal 150-450 [facility] Comment on above: Performed By: #### Sha SINHA UMICRO #### [facility] [address] [place] [address] Dr. Sara Matos RBC 4.87 106/ul Normal 4.20-5.40 [facility] Comment on above: Performed By: #### Sha SINHA UMICRO #### [facility] [address] [place] [address] Dr. Sara Matos WBC 11.1 103/ul Critically high 4.0-11.0 [facility] Comment on above: Performed By: #### Sha SINHA UMICRO #### [facility] [address] [place] [address] Dr. Sara Matos MAGNESIUMon 01-24-2022 Magnesium [Mass/Vol] 2.0 mg/dL Normal 1.8-2.4 [facility] Comment on above: Performed By: #### Sha SINHA UMICRO #### [facility] [address] [place] [address] Dr. Sara Matos T3 UPTAKEon 01-24-2022 T3U 37.0 % Normal 30.0-39.0 [facility] Comment on above: Performed By: #### T 3UP #### [facility] [address] [place] [address] Dr. Sara Matos T4on 01-24-2022 T4 [Mass/Vol] 11.60 ug/dL Normal 4.80-13.90 [facility] Comment on above: Performed By: #### T 4 #### [facility] [address] [place] [address] Dr. Sara Matos TSHon 01-24-2022 TSH 0.547 uIU/mL Normal 0.358-3.740 [facility] Comment on above: Performed By: #### T SH #### [facility] [address] [place] [address] Dr. Sara Matos TSH RANGE SEE BELOW Normal [facility] Comment on above: Result Comment: <0.3 4 UIU/ml HYPERTHYROID 0.34-5.60 UIU/ml EUTHYROID >5.60 UIU/ml HYPOTHYROID Performed By: #### T SH #### [facility] [address] [place] [address] Dr. Sara Matos CBC AUTO DIFFon 01-19-2022 BASO # 0.0 103/ul Normal 0.0-0.1 [facility] Comment on above: Performed By: #### T SH #### [facility] [address] [place] [address] Dr. Sara Matos Basophils/100 WBC (Bld) 0.5 % Normal 0.2-2.0 [facility] Comment on above: Performed By: #### T SH #### [facility] [address] [place] [address] Dr. Sara Matos EO # 0.1 103/ul Normal 0.0-0.7 [facility] Comment on above: Performed By: #### T SH #### [facility] [address] [place] [address] Dr. Sara Matos Eosinophils/100 WBC (Bld) 1.1 % Normal 0.9-7.0 [facility] Comment on above: Performed By: #### T SH #### [facility] [address] [place] [address] Dr. Sara Matos Erythrocyte distribution width (RBC) [Ratio] 13.6 % Normal 11.0-15.0 [facility] Comment on above: Performed By: #### T SH #### [facility] [address] [place] [address] Dr. Sraa Matos Hematocrit (Bld) [Volume fraction] 38.4 % Normal 36.0-48.0 [facility] Comment on above: Performed By: #### T SH #### [facility] [address] [place] [address] Dr. Sara Matos Hemoglobin (Bld) [Mass/Vol] 12.5 g/dL Normal 12.0-16.0 [facility] Comment on above: Performed By: #### T SH #### [facility] [address] [place] [address] Dr. Sara Matos IG # 0.02 10e3/ul Normal 0.00-0.03 [facility] Comment on above: Performed By: #### T SH #### [facility] [address] [place] [address] Dr. Sara Matos IG % 0.2 % Normal 0.0-0.5 [facility] Comment on above: Performed By: #### T SH #### [facility] [address] [place] [address] Dr. Sara Matos LYMPH # 2.5 103/ul Normal 1.2-3.8 [facility] Comment on above: Performed By: #### T SH #### [facility] [address] [place] [address] Dr. Sara Matos Lymphocytes/100 WBC (Bld) 28.9 % Normal 20.5-60.0 [facility] Comment on above: Performed By: #### T SH #### [facility] [address] [place] [address] Dr. Sara Matos MANUAL DIFF REQ NO Normal [facility] Comment on above: Performed By: #### T SH #### [facility] [address] [place] [address] Dr. Sara Matos MCH (RBC) [Entitic mass] 26.9 pg Normal 26.7-34.0 [facility] Comment on above: Performed By: #### T SH #### [facility] [address] [place] [address] Dr. Sara Matos MCHC (RBC) [Mass/Vol] 32.6 g/dL Normal 29.9-35.2 [facility] Comment on above: Performed By: #### T SH #### [facility] [address] [place] [address] Dr. Sara Matos MCV (RBC) [Entitic vol] 82.6 fL Normal 81.0-99.0 [facility] Comment on above: Performed By: #### T SH #### [facility] [address] [place] [address] Dr. Sara Matos MONO # 0.7 103/ul Normal 0.3-0.8 [facility] Comment on above: Performed By: #### T SH #### [facility] [address] [place] [address] Dr. Sara Matos Monocytes/100 WBC (Bld) 7.5 % Normal 1.7-12.0 [facility] Comment on above: Performed By: #### T SH #### [facility] [address] [place] [address] Dr. Sara Matos NEUT # 5.4 103/ul Normal 1.4-6.5 [facility] Comment on above: Performed By: #### T SH #### [facility] [address] [place] [address] Dr. Sara Matos Neutrophils/100 WBC (Bld) 61.8 % Normal 43.0-75.0 [facility] Comment on above: Performed By: #### T SH #### [facility] [address] [place] [address] Dr. Sara Matos Platelet mean volume (Bld) [Entitic vol] 11.4 fL Normal 9.5-13.5 [facility] Comment on above: Performed By: #### T SH #### [facility] [address] [place] [address] Dr. Sara Matos PLT 233 103/ul Normal 150-450 [facility] Comment on above: Performed By: #### T SH #### [facility] [address] [place] [address] Dr. Sara Matos RBC 4.65 106/ul Normal 4.20-5.40 [facility] Comment on above: Performed By: #### T SH #### [facility] [address] [place] [address] Dr. Sara Matos WBC 8.8 103/ul Normal 4.0-11.0 [facility] Comment on above: Performed By: #### T SH #### [facility] [address] [place] [address] Dr. Sara Matos PROF 14(COMP METB)on 022 Albumin [Mass/Vol] 3.8 g/dL Normal 3.4-5.0 [facility] Comment on above: Performed By: #### KACY GODWINRO #### [facility] [address] [place] [address] Dr. Sara Matos Albumin/Globulin [Mass ratio] 1.0 {ratio} Normal [facility] Comment on above: Performed By: #### KACY GODWINRO #### [facility] [address] [place] [address] Dr. Sara Matos ALP [Catalytic activity/Vol] 65 U/L Normal 46-116 [facility] Comment on above: Performed By: #### KACY GODWINRO #### [facility] [address] [place] [address] Dr. Sara Matos ALT [Catalytic activity/Vol] 52 U/L Normal 14-59 [facility] Comment on above: Performed By: #### Sha SINHA UMICRO #### [facility] [address] [place] [address] Dr. Sara Matos Anion gap [Moles/Vol] 12.0 mmol/L Normal [facility] Comment on above: Performed By: #### FLORENTINO GODWINICRO #### [facility] [address] [place] [address] Dr. Sara Matos AST [Catalytic activity/Vol] 28 U/L Normal 15-37 [facility] Comment on above: Performed By: #### FLORENTINO GODWINICRO #### [facility] [address] [place] [address] Dr. Sara Matos Bilirubin [Mass/Vol] 0.4 mg/dL Normal 0.2-1.0 [facility] Comment on above: Performed By: #### Sha SINHA UMICRO #### [facility] [address] [place] [address] Dr. Sara Matos Calcium [Mass/Vol] 9.5 mg/dL Normal 8.5-10.1 [facility] Comment on above: Performed By: #### Sha SINHA UMICRO #### [facility] [address] [place] [address] Dr. Sara Matos Chloride [Moles/Vol] 103 mmol/L Normal 98-107 [facility] Comment on above: Performed By: #### Sha SINHA UMICRO #### [facility] [address] [place] [address] Dr. Sara Matos CO2 [Moles/Vol] 26.7 mmol/L Normal 21.0-32.0 [facility] Comment on above: Performed By: #### Sha SINHA UMICRO #### [facility] [address] [place] [address] Dr. Sara Matos Creatinine [Mass/Vol] 0.69 mg/dL Normal 0.55-1.02 [facility] Comment on above: Performed By: #### Sha SINHA UMICRO #### [facility] [address] [place] [address] Dr. Sara Matos EGFR-AF [place] >60 Normal >=60 [facility] Comment on above: Performed By: #### Sha SINHA UMICRO #### [facility] [address] [place] [address] Dr. Sara Matos EGFR-NON AF [place] >60 Normal >=60 [facility] Comment on above: Performed By: #### JAIME GODWIN #### [facility] [address] [place] [address] Dr. Sara Matos Globulin (S) [Mass/Vol] 3.9 g/dL Normal [facility] Comment on above: Performed By: #### JAIME GODWIN #### [facility] [address] [place] [address] Dr. Sara Matos Glucose [Mass/Vol] 84 mg/dL Normal 74-106 [facility] Comment on above: Performed By: #### JAIME GODWIN #### [facility] [address] [place] [address] Dr. Sara Matos Potassium [Moles/Vol] 3.7 mmol/L Normal 3.5-5.1 [facility] Comment on above: Performed By: #### JAIME GODWIN #### [facility] [address] [place] [address] Dr. Sara Matos Protein [Mass/Vol] 7.7 g/dL Normal 6.4-8.2 [facility] Comment on above: Performed By: #### JAIME GODWIN #### [facility] [address] [place] [address] Dr. Sara Matos Sodium [Moles/Vol] 138 mmol/L Normal 136-145 [facility] Comment on above: Performed By: #### JAIME GODWIN #### [facility] [address] [place] [address] Dr. Sara Matos Urea nitrogen [Mass/Vol] 8.0 mg/dL Normal 7.0-18.0 [facility] Comment on above: Performed By: #### JAIME GODWIN #### [facility] [address] [place] [address] Dr. Sara Matos Urea nitrogen/Creatinine [Mass ratio] 11.6 mg/mg Normal [facility] Comment on above: Performed By: #### JAIME GODWIN #### [facility] [address] [place], [place] [address] Dr. Sara Matos TROPONIN, HIGH SENSITIVITYon 01-19-2022 HSTROP <4.0 Normal 4.0-51.3 [facility] Comment on above: Result Comment: CUT- OFF POINTS HAVE BEEN ESTABLISHED BASED ON THE FOURTH UNIVERSAL DEFINITIONS OF MYOCARDIAL INFARCTION. THE UPPER REFERENCE LIMIT (URL) OF TROPONIN, DEFINED THE 99TH PERCENTILE OF cTnI DISTRIBUTION IN A REFERENCE POPULATION, HAS BEEN CONFIRMED THE DECISION THRESHOLD FOR VT DIAGNOSIS. Performed By: #### JAIME GODWIN #### [facility] [address] [place], [place] [address] Dr. Sara Matos XR CHEST 1 Von [...] DUSTY BUSCH Date: 2022-01-19 21:50 Normal [facility] US GUY DOP LEG LTon [...] LA O Date: 2021-12-25 12:20 Normal [facility] XR CHEST 1 Von 12-25-2021 [...] PREM GUERRA Date: 2021-12-25 11:45 Normal [facility] U24 Proteinon 09-04-2017 PROTEIN:MCNC:24H:UR INE:QN: 102 mg/24hr Normal 28-141 [facility] Comment on above: Performed By: #### 2 [id number], [id number] ####[facility] [address] [place] [address] ALBUMIN/PROTEIN.TOT AL:MFR:PT:URINE:QN: ELECTROPHORESIS 8.0 mg/dL Invalid Interpretation Code [facility] Comment on above: Result Comment: The reference range and other method performance specifications have not been established for this test; results should be integrated into the clinical context for interpretation. Performed By: #### 2 [id number], [id number] ####[address] [address] U24 Total Volon 09-04-2017 Hrs Glenna 24 hour(s) Invalid Interpretation Code [facility] Comment on above: Order Comment: Order added by Discern Expert Performed By: #### 2 [id number], [id number] ####[id number] [place] [address] SPECIMEN VOLUME:VOL:XXX:URIN E:QN: 1280 mL Invalid Interpretation Code [facility] Comment on above: Order Comment: Order added by Discern Expert Performed By: #### 2 [id number], [id number] ####[address] [address] Vital Signs Date Time Vital Sign Value Performing Clinician Yani frye 08-28-2024 15:03-0500 Body mass index (BMI) [Ratio] 45.14 kg/m2 Isabela HENNESSY Work Phone: [facility] 08-28-2024 15:03-0500 Body weight 119.3 kg Isabela HENNESSY Work Phone: [facility] 08-28-2024 15:03-0500 Diastolic blood pressure 84 mm[Hg] Isabela Hurdland PA Work Phone: [facility] 08-28-2024 15:03-0500 Systolic blood pressure 132 mm[Hg] Isabela Spencer PA Work Phone: [facility] 08-07-2024 11:22-0500 Body mass index (BMI) [Ratio] 48.41 kg/m2 Jonas Jose DO Work Phone: [facility] 08-07-2024 11:22-0500 Body weight 127.91 kg Jonas Jose DO Work Phone: [facility] 08-07-2024 11:22-0500 Diastolic blood pressure 64 mm[Hg] Jonas Jose DO Work Phone: [facility] 08-07-2024 11:22-0500 Systolic blood pressure 104 mm[Hg] Jonas Jose DO Work Phone: [facility] 08-01-2024 10:57-0500 Body mass index (BMI) [Ratio] 47.55 kg/m2 Isabela Spencer PA Work Phone: [facility] 08-01-2024 10:57-0500 Body weight 125.65 kg Isabela Spencer PA Work Phone: [facility] 08-01-2024 10:57-0500 Diastolic blood pressure 70 mm[Hg] Isabela Hurdland PA Work Phone: [facility] 08-01-2024 10:57-0500 Systolic blood pressure 120 mm[Hg] Isabela Hurdland PA Work Phone: [facility] 07-18-2024 11:15-0500 Body mass index (BMI) [Ratio] 46.93 kg/m2 Isabela Hurdland PA Work Phone: [facility] 07-18-2024 11:15-0500 Body weight 124.01 kg Isabela Hurdland PA Work Phone: [facility] 07-18-2024 11:15-0500 Diastolic blood pressure 80 mm[Hg] Isabela Hurdland PA Work Phone: [facility] 07-18-2024 11:15-0500 Systolic blood pressure 120 mm[Hg] Isabela Palmer PA Work Phone: [facility] 06-27-2024 10:38-0500 Body mass index (BMI) [Ratio] 47.1 kg/m2 Jonas Jose DO Work Phone: [facility] 06-27-2024 10:38-0500 Body weight 124.47 kg Jonas Jose DO Work Phone: [facility] 06-27-2024 10:38-0500 Diastolic blood pressure 72 mm[Hg] Jonas Jose DO Work Phone: [facility] 06-27-2024 10:38-0500 Systolic blood pressure 118 mm[Hg] Jonas Jose DO Work Phone: [facility] 05-15-2024 11:15-0400 Body mass index (BMI) [Ratio] 46.35 kg/m2 Isabela HENNESSY Work Phone: [facility] 05-15-2024 11:15-0400 Body weight 122.47 kg Isabela Palmer PA Work Phone: [facility] 05-15-2024 11:15-0400 Diastolic blood pressure 80 mm[Hg] Isabela Palmer PA Work Phone: [facility] 05-15-2024 11:15-0400 Systolic blood pressure 114 mm[Hg] Isabela Palmer PA Work Phone: [facility] 04-11-2024 11:55-0400 Body mass index (BMI) [Ratio] 45.8 kg/m2 Jonas Jose DO Work Phone: [facility] 04-11-2024 11:55-0400 Body weight 121.02 kg Jonas Jose DO Work Phone: [facility] 04-11-2024 11:55-0400 Diastolic blood pressure 80 mm[Hg] Jonas Jose DO Work Phone: [facility] 04-11-2024 11:55-0400 Systolic blood pressure 118 mm[Hg] [...] Start: 05-15-2024 End: 05-15-2024 Bamboo flowsheet Isabela HENNSESY Work Phone: [facility] Start: 05-15-2024 End: 05-15-2024 Bamboo flowsheet Isabela HENNESSY Work Phone: [facility] Start: 05-15-2024 End: 05-15-2024 ambulatory ISABELA PALMER Not Available Start: 05-15-2024 End: 05-15-2024 Office outpatient visit 15 minutes Isabela HENNESSY Work Phone: [facility] Comment on above: 26 weeks gestation o f (Primary Dx); Second trimester ; with normal glucose tolerance test (GTT); Diabetes mellitus screening Start: 04-11-2024 End: 04-11-2024 Clinisync Result Encounter Jonas Jose DO Work Phone: [facility] External Department Unsolicited Start: 04-11-2024 End: 04-12-2024 Clinisync Result Encounter Jonas Jose DO Work Phone: [facility] External Department Unsolicited Start: 04-11-2024 End: 04-12-2024 External Result Encounter Jonas Jose DO Work Phone: [facility] External Department Unsolicited Start: 04-11-2024 End: 04-11-2024 ambulatory JONAS JOSE Not Available Start: 04-11-2024 End: 04-11-2024 Patient encounter procedure Jonas Jose DO Work Phone: [facility] Start: 04-11-2024 End: 04-11-2024 Periodic preventive med est patient 18-39 yrs Jonas Jose DO Work Phone: [facility] Comment on above: 21 weeks [...] Start: 09-04-2017 End: 09-05-2017 Ambulatory Jonah York Facility:[facility] Procedures Date Procedure Procedure Detail Performing Clinician [...] PM EST Visit [facility] [address] [facility] [place] [phone] Isabela Palmer PA [address] [place] [address] [facility] Start: 08-07-2024 End: 08-07-2024 Patient encounter procedure [facility] Comment on above: Arrived Start: 08-01-2024 End: 08-01-2024 Patient encounter procedure 08/01/2024 10:40 AM EST Routine [facility] [address] [facility] [place] [phone] Isabela Palmer PA [address] [place] [address] Arrived [facility] Comment on above: Arrived Start: 07-26-2024 End: 07-26-2024 Patient encounter procedure 07/26/2024 2:50 PM EST Routine [facility] [address] [place] [id number] Isabela Palmer PA [address] [facility] [place] [address] [facility] Start: 07-18-2024 End: 07-18-2025 [...] AM EST Routine [facility] [address] [facility] [place] [phone] Isabela Palmer, PA [address] [facility] [place] [address] Arrived [facility] Comment on above: Arrived Start: 07-11-2024 End: 07-11-2024 Patient encounter procedure 07/11/2024 10:10 AM EST Routine [facility] [address] [place] [phone] Isabela Palmer, PA [address] [place] [address] [facility] Start: 07-11-2024 End: 07-11-2024 Professional / ancillary services management 07/11/2024 9:30 AM EST Ancillary Procedure [facility] [address] [place] [phone] [facility] Start: 06-27-2024 End: 06-27-2025 [...] mellitus screening Expected: 05/15/2024 (Approximate), Expires: 05/15/2025 [facility] Work Phone: Comment on above: Expected: 05/15/2024 (Approximate), Expires: 05/15/2025 Start: 05-15-2024 End: 05-15-2025 Measurement of glucose 1 hour after glucose challenge for glucose tolerance test Glucose tolerance, 1 hour Lab Routine Diabetes mellitus screening Expected: 05/15/2024 (Approximate), Expires: 05/15/2025 [facility] Comment on above: Expected: 05/15/2024 (Approximate), Expires: 05/15/2025 Start: 05-15-2024 End: 05-15-2024 Patient encounter procedure 05/15/2024 10:40 AM EDT Routine [facility] [address] [place] [id number] Isabela Palmer PA [address] [place] [address] Arrived [facility] Comment on above: Arrived Start: 05-09-2024 End: 05-09-2024 Patient encounter procedure 05/09/2024 2:30 PM EDT Routine [facility] [address] [place] [id number] Isabela Palmer, PA [address] [place] [address] [facility] Start: 04-18-2024 End: 04-18-2024 Professional / ancillary services management 04/18/2024 11:00 AM EDT Ancillary Procedure [facility] [address] [place] [id number] [facility] Start: 04-16-2024 Influenza vaccination Influenza Vacc ine (#1) [facility] Start: 04-11-2024 End: 06-11-2024 Alpha fetoprotein, maternal Alpha fetoprotein, maternal Lab Routine 21 weeks gestation of Expected: 04/11/2024 (Approximate), Expires: 06/11/2024 [facility] Healthcare Comment on above: Expected: 04/11/2024 (Approximate), Expires: 06/11/2024 Start: 04-11-2024 End: 04-11-2025 US for US OB ANATOMY SINGLE W US OB CERVICAL LENGTH Imaging Routine Screening, , for anatomic survey Expected: 04/11/2024 (Approximate), Expires: 04/11/2025 [facility] Comment on above: Expected: 04/11/2024 (Approximate), Expires: 04/11/2025 Start: 04-11-2024 End: 04-11-2024 Patient encounter procedure 04/11/2024 11:30 AM EDT Routine [facility] [address] [place] [id number] Jonas Garcia DO [address] [place] [address] [facility] OB CHLAMYDIA TRACHOMATI S (GENITO/STI) CHLAMYDIA TRACHOMATIS (GENITO/STI) Lab Routine Exposure to STD Ordered: 04/11/2024 [facility] Healthcare Comment on above: Ordered: 04/11/2024 Cytology Cervical or vaginal smear or scraping study Pap Smear Pathology and Cytology Routine Well woman exam with routine gynecological exam Ordered: 04/11/2024 [facility] Healthcare Comment on above: Ordered: 04/11/2024 Hemoglobin A1c/Hemoglobin.total in Blood Hemoglobin A1c Lab Routine 35 weeks gestation of Third trimester 32 weeks gestation of Ordered: 07/18/2024 [facility] Comment on above: Ordered: 07/18/2024 Neisseria gonorrhoea e DNA [Presence] in Unspecified specimen by DEENA with probe detection Neisseria gonorrhea DNA probe, direct Lab Routine Exposure to STD Ordered: 04/11/2024 [facility] Healthcare Comment on above: Ordered: 04/11/2024 SURESWAB(R) ADVANCED VAGINITIS PLUS, TMA SURESWAB(R) ADVANCED VAGINITIS PLUS, TMA Pathology and Cytology Routine Vaginal discharge Ordered: 04/11/2024 [facility] Healthcare Work Phone: Comment on above: Ordered: 04/11/2024 Payers Date Payer Category Payer Medicaid [employer] [place] [employer] [id number] 2018-Present [address] [place] [id number] 2018 Medicaid (Managed Care) [employer] [id number] 1995 Unknown [id number] 2.16840.1.775961.3.579.2. 593 1995 Unknown [id number] 2.16.840.1.315677.3.579.2. 593 1995 Unknown [id number] 2.16.840.1.826625.3.579.2. 593 1995 Unknown [id number] 2.16.840.1.044148.3.579.2. 593 1995 Unknown [id number] 2.16.840.1.690441.3.579.2. 593 1995 Unknown [id number] 2.16.840.1.749688.3.579.2. 593 1995 Unknown [id number] 2.16.840.1.756370.3.579.2. 593 1995 Unknown [id number] 2.16.840.1.974070.3.579.2. 593 1995 Unknown [id number] 2.16.840.1.374447.3.579.2. 593 1995 Unknown [id number] 2.16.840.1.621554.3.579.2. 593 1995 Unknown [id number] 2.16.840.1.543426.3.579.2. 593 1995 Unknown [id number] 2.16.840.1.321928.3.579.2. 593 1995 Unknown [id number] 2.16.840.1.413208.3.579.2. 593 1995 Unknown [id number] 2.16.840.1.094877.3.579.2. 593 1995 Unknown [id number] 2.16.840.1.145824.3.579.2. 593 1995 Unknown [id number] 2.16.840.1.899372.3.579.2. 1259 1995 Unknown [id number] 2.16.840.1.805188.3.579.2. 1259 1995 Unknown [id number] 2.16.840.1.140473.3.579.2. 1259 1995 Unknown [id number] 2.16.840.1.018478.3.579.2. 1259 1995 Unknown [id number] 2.16.840.1.914045.3.579.2. 1259 1995 Unknown [id number] 2.16.840.1.925237.3.579.2. 1259 1995 Unknown [id number] 2.16.840.1.292685.3.579.2. 1259 1995 Unknown [id number] 2.16.840.1.833216.3.579.2. 1259 1959 Self-pay [id number] 1959 Unknown [id number] Social History Date Type Detail Facility Start: [...] iron polysaccharides (PROFE) 391.3 mg, Oral, Daily mrrivbdtgouzi-GG-YQAS (Tylenol Cold Multi-Symptom) 5-10-325 mg/15 mL liquid [...] MINOO Ramos documented in this encounter [facility] 08-07-2024 History of Presen t illness Narrative Reason for Appointment: Patient ID: Astrid Montague is a 28 y.o. female who presents for No chief complaint on file. Patient presents today for Return OB appointment. MEDICATIONS Current Outpatient Medications Medication Instructions amoxicillin (AMOXIL) 875 mg, 2 times daily qkzzgkkqamjhk-UZ-LGWM (Tylenol Cold Multi-Symptom) 5-10-325 mg/15 mL liquid [...] nursing note reviewed. Exam conducted with a fixed interest dealer present. Vitals: Estimated body mass index is [...] Garcia DO documented in this encounter [facility] 08-01-2024 History of Presen t illness Narrative Reason for Appointment: Patient ID: Astrid Montague is a 28 y.o. female who presents for Routine Visit Patient presents today for Return OB appointment. MEDICATIONS Current Outpatient Medications Medication Instructions amoxicillin (AMOXIL) 875 mg, 2 times daily smexttydfirjr-GC-TWEK (Tylenol Cold Multi-Symptom) 5-10-325 mg/15 mL liquid [...] MINOO Ramos documented in this encounter [facility] 07-18-2024 History of Presen t illness Narrative Reason for Appointment: Patient ID: Astrid Montague is a 28 y.o. female who presents for Routine Visit Patient presents today for Return OB appointment. MEDICATIONS Current Outpatient Medications Medication Instructions amoxicillin (AMOXIL) 875 mg, 2 times daily iidytahevpkqz-IU-PVPL (Tylenol Cold Multi-Symptom) 5-10-325 mg/15 mL liquid [...] MINOO Ramos documented in this encounter [facility] 06-27-2024 History of Presen t illness Narrative Reason for Appointment: Patient ID: Astrid Montague is a 28 y.o. female who presents for Routine Visit Patient presents today for Return OB appointment. MEDICATIONS Current Outpatient Medications Medication Instructions baxdysttcwpbk-SI-QDRM (Tylenol Cold Multi-Symptom) 5-10-325 mg/15 mL liquid [...] nursing note reviewed. Exam conducted with a fixed interest dealer present. Vitals: Estimated body mass index is [...] Garcia DO documented in this encounter [facility] 05-15-2024 History of Presen t illness Narrative Reason for Appointment: Patient ID: Astrid Montague is a 28 y.o. female who presents for Routine Visit Patient presents today for Return OB appointment. MEDICATIONS Current Outpatient Medications Medication Instructions urqnwpbqrjcxp-NP-COSS (Tylenol Cold Multi-Symptom) 5-10-325 mg/15 mL liquid [...] MINOO Ramos documented in this encounter [facility] 04-11-2024 History of Presen t illness Narrative Reason for Appointment: Patient ID: Astrid Montague is a 28 y.o. female who presents for No chief complaint on file. Patient presents today for Annual Exam. and Return OB appointment. MEDICATIONS Current Outpatient Medications Medication Instructions cwxkpeyxgaywp-HK-APVX (Tylenol Cold Multi-Symptom) 5-10-325 mg/15 mL liquid [...] nursing note reviewed. Exam conducted with a fixed interest dealer present. Vitals: Estimated body mass index is [...] or undercooked meat, and stay away from [facility]. Patient has been consulted regarding any further [...] section and content) DATE CREATED AUTHOR 02/04/2018 [facility] DATE CREATED AUTHOR AUTHOR'S ORGANIZ ATION 04/25/2022 [facility] DATE CREATED AUTHOR AUTHOR'S ORGANIZ ATION 12/13/2022 [facility] DATE CREATED AUTHOR AUTHOR'S ORGANIZ ATION 08/31/2024 [facility] EPIC Reason for Visit [...] BE BASED ON THE PRIMARY CLINICAL RECORDS. [facility]. provides no warranty or guarantee of the accuracy or completeness of information in this document.
--- NOTE | 2024-10-18 20:51 | ED.UPPEXIN1 ---
HPI HPI - Extremity Injury (Upper) General Chief Complaint: Extremity Injury, Upper Stated Complaint: RIGHT HAND PAIN Time Seen by Provider: 10/18/24 20:47 Source: patient Mode of arrival: walk-in Limitations: no limitations History of Present Illness HPI narrative: The patient is a 29-year-old bnoce-jdkt-faedtfcy female who presents to the emergency department after an injury that occurred at 21:00. The patient was wrestling with her child and her boyfriend when there was a sudden pop in her wrist on the radial side. Patient does not have a history of previous injury to this extremity. Patient states it hurts worse to AB duct her thumb. And she had burning sensation that went from her interphalangeal joint to her distal third of her radius. Patient has sensation in all of her fingers. She can flex and extend digits 2 through 5 without any difficulty. Pain limits range of motion to the right thumb. Patient states at rest of the 6 out of 10. If she moves it at all it is an 8 out of 10. Ice was applied upon arrival to the hospital the patient took no pain medications prior to arrival and she was driven here by her mother. No other injuries sustained today. Related Data Previous Rx's ?Medication ?Instructions ?Recorded acetaminophen 300 mg-codeine 30 mg 1 tab PO Q4H PRN pain #14 tabs 10/18/24 tablet Allergies Allergy/AdvReac Type Severity Reaction Status Date / Time escitalopram (From Lexapro) Allergy Intermediate Anxiety Verified 08/22/24 21:10 Opioid HPI Opioid Management Most Recent Pain and Opioid Data: Last Pain Scale 6 10/18/24 21:04 10/18/24 Ur Phencyclidine Scrn Negative (NEGATIVE) 08/10/24 05:05 08/10/24 Review of Systems ROS Status of ROS 10 or more systems reviewed and unremarkable except as noted in history and below PFSH PFS Medical History Panic attacks ?F41.0 - Panic disorder [episodic paroxysmal anxiety] (ICD-10) Anxiety ?F41.9 - Anxiety disorder, unspecified (ICD-10) Surgical History Status post primary low transverse section ?Z98.891 - History of uterine scar from previous surgery (ICD-10) No pertinent past surgical history ?Z78.9 - Other specified health status (ICD-10) Family History Mother Family history of diabetes mellitus Family history of hypertension Sister Family history of cancer Grandmother Family history of myocardial infarction Social History Within the past year, how often did you have a drink containing alcohol: never Score interpretation: A score less than 3 is consistent with normal alcohol consumption. Smoking status: Never smoker Non-prescribed substance use: denies use Highest level of school completed/degree received: 12th grade, no diploma Little interest or pleasure in doing things: not at all Feeling down, depressed, or hopeless: not at all Exam Constitutional Vital Signs, click to edit/add: Last Vital Signs Temp 98.9 F 10/18/24 20:41 Pulse 73 10/18/24 20:41 Resp 20 10/18/24 20:41 BP 140/82 10/18/24 20:41 Pulse Ox 98 10/18/24 20:41 O2 Del Method Room Air 10/18/24 20:41 Documenting provider has reviewed patient's vital signs: yes Common normals: oriented x3, healthy appearing, alert and well nourished General appearance: cooperative, well kempt and well developed Orientation/consciousness: Yes awake, Yes oriented to person, Yes oriented to place and Yes oriented to time [facility] Common normals: normocephalic, head/scalp atraumatic and dentition normal Head and scalp: atraumatic Face and sinus: normal facial exam Mouth: lip normal Eye Common normals: PERRL, conjunctivae normal and no scleral icterus General eye: normal appearance of both eyes Periorbital: periorbital findings normal Eyelid: eyelids normal Extremity Common normals: normal capillary refill, no joint enlargement and no clubbing, cyanosis or edema Right upper extremity: wrist (Reproducible pain over the scaphoid area.) Right wrist: inspection (No gross edema), palpation (No crepitance), ROM (Patient can make an okay sign. Patient can do a thumbs up sign.), neurovascular exam (Intact) and other (No subungual hematoma) Psych Common normals: mental status grossly normal, cooperative and affect normal Appearance: grossly normal Attitude: calm and engaged Course Course Hospital Course: Patient received ibuprofen 600 mg by mouth on an x-ray of the right wrist. Reevaluation(s) Reevaluation #1: Reassessed the patient. Her pain continues to be about a 5 out of 10. Patient continues to have ice on it. Patient was offered stronger analgesic medication like Tylenol 3 and she refused. She did however accept a prescription. Patient is aware that we do not have MRI available that she may need an MRI if it indeed is ligamentous or tendinous in nature. However they typically like the swelling to go down before even doing an MRI. I told her to wear the splint and that she remove it for showers and if it begins to feel better then maybe it was just a strain but if she is continue to have pain she will need to follow-up with her primary care physician for an orthopedic referral and/or MRI. Time: 21:34 Vital Signs Vital signs: Vital Signs Temperature 98.9 F 10/18/24 20:41 Pulse Rate 73 10/18/24 20:41 Respiratory Rate 20 10/18/24 20:41 Blood Pressure 140/82 10/18/24 20:41 Pulse Oximetry 98 10/18/24 20:41 Oxygen Delivery Method Room Air 10/18/24 20:41 Temperature 98.9 F 10/18/24 20:41 Pulse Rate 73 10/18/24 20:41 Respiratory Rate 20 10/18/24 20:41 Blood Pressure 140/82 10/18/24 20:41 Pulse Oximetry 98 10/18/24 20:41 Oxygen Delivery Method Room Air 10/18/24 20:41 MDM - Extremity Injury (Upper) Differential Diagnosis Differential diagnosis: Likely sprain and strain of wrist, fracture of wrist, finger sprain, dislocation of finger and fracture of hand Medical Records Attestation: I reviewed the patient's medical records. Imaging Data X-ray right wrist: Attestation: I personally reviewed and interpreted this imaging study as follows: My impression: There is no evidence of fracture, dislocation, or subluxation. I will continue to monitor the board-certified radiologist reads and contact the patient if there is any discrepancy. Discharge Plan Discharge Chief Complaint: Extremity Injury, Upper Clinical Impression: Sprain and strain of wrist Patient Disposition: Home, Self-Care Time of Disposition Decision: 21:35 Condition: Good Mode of Transportation: Private Vehicle Prescriptions / Home Meds: New acetaminophen-codeine 300-30 mg tablet 1 tab PO Q4H PRN (Reason: pain) Qty: 14 0RF Print Language: Faroese Instructions: Wrist Injury (ED), P.R.I.C.E. Treatment (ED) Referrals: CHANNING ELAINE [Primary Care Provider] - 1 week Procedures ED Procedure Instructions Procedures Procedures: Splint placed for immobilization. Neurovascularly intact afterwards.
[2024-10-18] MEDS: IBUPROFEN 600 MG TABLET PO (21:04)
--- NOTE | 2024-10-18 21:17 | PC.NURSE ---
this patient is aware that we now waiting on the x-ray results to come back. this patient voices no concerns and shows no signs of distress
--- NOTE | 2024-10-18 21:45 | PC.NURSE ---
i gave this patient verbal and written discharge orders along with 1 e-scripts and this patient voices yes to understanding these. at time of discharge this patient voices no concerns and shows no sign distress
== END 2024-10-18 21:43 | disposition home or self-care (01) ==
PROVIDERS: Emergency Provider Emergency Medicine; PCP Nurse Practitioner Family
DX: S63.501A Unspecified sprain of right wrist, initial encounter (principal); S66.911A Strain of unspecified muscle, fascia and tendon at wrist and hand level, right hand, initial encounter; Y93.83 Activity, rough housing and horseplay
CPT/HCPCS: 73110; 99283

== ENCOUNTER 2025-03-04 15:46 | Emergency (ER) | payer OTHER, SELFPAY ==
[2025-03-04 15:50] VITALS: BP 132/94; PULSE 78; TEMP 37.2; O2SAT 99; BMI 45.6
--- NOTE | 2025-03-04 16:05 | ED.EXTPRO1 ---
HPI - Extremity Problem General Chief complaint: Extremity Problem, Nontraumatic Stated complaint: LOWER EXTREMITY PAIN Time Seen by Provider: 03/04/25 15:59 Source: patient Mode of arrival: walk-in Limitations: no limitations History of Present Illness HPI Narrative: The patient is coming today with few hours of burning in her left lower extremity mentioned that she had a history of blood clot almost 10 years ago that was superficial and was treated with Eliquis The patient denies any history of immobilization recently she is 6 months No other concerns Patient have no chest pain nausea vomiting or any other concern it is not at tenderness on palpation is more of a burning sensation in her leg going up to her thigh Related Data Allergies Allergy/AdvReac Type Severity Reaction Status Date / Time escitalopram (From [employer]) Allergy Intermediate Anxiety Verified 03/04/25 15:50 Review of Systems ROS Status of ROS 10 or more systems reviewed and unremarkable except as noted in history and below PFSH PFS Medical History Panic attacks �F41.0 - Panic disorder [episodic paroxysmal anxiety] (ICD-10) Anxiety �F41.9 - Anxiety disorder, unspecified (ICD-10) Surgical History Status post primary low transverse section �Z98.891 - History of uterine scar from previous surgery (ICD-10) No pertinent past surgical history �Z78.9 - Other specified health status (ICD-10) Family History Mother Family history of diabetes mellitus Family history of hypertension Sister Family history of cancer Grandmother Family history of myocardial infarction Social History Within the past year, how often did you have a drink containing alcohol: never Score interpretation: A score less than 3 is consistent with normal alcohol consumption. Smoking status: Never smoker Non-prescribed substance use: denies use Highest level of school completed/degree received: 12th grade, no diploma Little interest or pleasure in doing things: not at all Feeling down, depressed, or hopeless: not at all Exam Narrative Exam Narrative: Nurses notes and vital signs reviewed and patient is not hypoxic. Left lower extremity: No acute finding examination appreciated swelling or any vascular injury with a good anterior tibial pulse and normal skin with no rash or swelling or redness or any signs of infection General: Well-appearing and in no apparent distress. Skin: Warm, dry, no pallor noted. No rash. Head: Normocephalic, atraumatic. Neck: Supple, non-tender. Neurological: A&O x4. No cranial nerve dysfunction observed. No truncal ataxia. Moves all extremities. Sensation intact. Psychiatric: Cooperative and interactive. Normal mood and affect. Constitutional Vital Signs, click to edit/add: Last Vital Signs Temp 99 F 03/04/25 15:50 Pulse 78 03/04/25 15:50 Resp 18 03/04/25 15:50 BP 132/94 H 03/04/25 15:50 Pulse Ox 99 03/04/25 15:50 O2 Del Method Room Air 03/04/25 15:50 Course Vital Signs Vital signs: Vital Signs Temperature 99 F 03/04/25 15:50 Pulse Rate 78 03/04/25 15:50 Respiratory Rate 18 03/04/25 15:50 Blood Pressure 132/94 H 03/04/25 15:50 Pulse Oximetry 99 03/04/25 15:50 Oxygen Delivery Method Room Air 03/04/25 15:50 Temperature 99 F 03/04/25 15:50 Pulse Rate 78 03/04/25 15:50 Respiratory Rate 18 03/04/25 15:50 Blood Pressure 132/94 H 03/04/25 15:50 Pulse Oximetry 99 03/04/25 15:50 Oxygen Delivery Method Room Air 03/04/25 15:50 MDM - Extremity (Nontraumatic) MDM Narrative Medical decision making narrative: The patient clinical exam is less likely to be secondary to DVT but with the patient concern she was provide with the ultrasound order to be done tomorrow as outpatient There is a low suspicion that this presentation is acute DVT but with the patient history it is needed to be ruled out The patient was provided with a Doppler prescription for venous Doppler x-ray of the left lower extremity and the results should be referred to her primary care Patient meanwhile we will be monitoring her symptoms case of any chest pain shortness of breath she is to come back to the ER , she is also to avoid any exertion for the next 24 hours The patient is to follow up with primary care physician in next 2-3 days or to return to the emergency department should any of the signs or symptoms worsen or new symptoms develop. The patient agrees with the following Diagnosis and Treatment plan and the patient will be discharged home. Discharge Plan Discharge Chief Complaint: Extremity Problem, Nontraumatic Clinical Impression: Calf pain Patient Disposition: Home, Self-Care Time of Disposition Decision: 16:06 Condition: Good Print Language: Danish Instructions: Leg Pain (ED) Additional Instructions: Make sure you the ultrasound of the left lower extremity tomorrow morning Referrals: CHANNING ELAINE [Primary Care Provider, Family Practice] - 1 week
--- OUTSIDE RECORDS SUMMARY | 2025-03-04 16:50 | XMS_ITS | Clinical Summary ---
Author Organization [employer] tem Address [id number] [address] [place] [address] Care Team Providers Care Media Arts Professor Name Role Phone Jadon Cedillo MD Primary Care Provider [phone] Allergies Active Allergy Reactions Criticality Noted Date Comments Escitalopram Oxalate Headache 11/28/2021 Medications ondansetron (ZOFRAN) 4 mg tablet Take 4 mg by mouth every 8 (eight) hours as needed for nausea or vomiting. Active LORazepam (ATIVAN) 0.5 mg tablet Take 0.5 mg by mouth every 6 (six) hours as needed for anxiety. Active meclizine (ANTIVERT) 25 mg tablet Chew 25 mg and swallow as needed in the morning and 25 mg as needed at noon and 25 mg as needed in the evening for dizziness. Active apixaban (ELIQUIS) 5 mg tablet Take 5 mg by mouth in the morning and 5 mg before bedtime. Active Social History Tobacco Use Types Packs/Day Years Used Date Smoking Tobacco: Never Assessed Childcare Answer Date Recorded Childcare Unknown 01/25/2019 Employment Answer Date Recorded Employment Unknown 01/25/2019 Comments No Sex and Gender Information Value Date Recorded Sex Assigned at Not on file Legal Sex Female 11:51 AM EDT Gender Identity Not on file Sexual Orientation Not on file Last Filed Vital Signs Vital Sign Reading Time Taken Comments Blood Pressure 118/100 12/04/2021 10:23 PM EDT Pulse 62 12/04/2021 10:23 PM EDT Temperature 36.6 C (97.8 F) 12/04/2021 10:23 PM EDT Respiratory Rate 16 12/04/2021 10:23 PM EDT Oxygen Saturation 98% 12/04/2021 10:23 PM EDT Inhaled Oxygen Concentration - - Weight 113.4 kg (250 lb) 12/04/2021 10:23 PM EDT Height 162.6 cm (5' 4 ) 12/04/2021 10:23 PM EDT Body Mass Index 42.91 12/04/2021 10:23 PM EDT Plan of Treatment Health Maintenance Due Date Last Done Comments Depression Screening 2007 Tobacco Screening 2007 Adult BMI Screening 2013 DTaP,Tdap and Td Vaccines (4 - Tdap) 2014 11/26/1997, 08/23/1997, 1995 Pap Smear 2016 COVID-19 Vaccine ( - 2023-2 5 season) 2024 04/18/2021, 03/26/2021 Influenza Vaccine 04/16/2025 Medical Devices Not on file Insurance [employer] [employer] Care Teams Media Arts Professor Relationship Specialty Start Date End Date Jadon Cedillo MD PCP - General Family Medicine 11/28/21
--- OUTSIDE RECORDS SUMMARY | 2025-03-04 16:50 | XMS_ITS | CCD ---
Author Organization [facility] Care Team Providers Care Tissue Coordinator Name Role Phone Jonah York Unavailable Unavailable [...] [facility] Primary Care Unavailable REINECK, DR WANDY Silva [...] (2 sources) Escitalopram Drug Allergy 11-12-2021 [facility] Repository (20 sources) Escitalopram Drug Allergy 11-28-2021 Headache [facility] Healthcare Work Phone: Medications Current Medications Medication Drug Class(es) Dates Sig (Normalized) Sig (Original) acetaminophen 21.7 mg/ml / dextromethorphan hydrobromide 0.667 mg/ml / phenylephrine hydrochloride 0.333 mg/ml oral solution (20 sources) Uncompetitive [place]-sv[place]-[place] te Receptor Antagonist, Sigma-1 Agonist, alpha-1 Adrenergic Agonist take 15 mL by mouth every four hours as needed for congestion [id number]-NC AP (Tylenol Cold Multi-Symptom) 5-10-325 mg/15 mL [...] 04-11-2024 Episodic Other aftercare (1 source) 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; Translations: [OTH 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 UROLOGIST CURRENT DRUG THERAPY] Onset: 01-26-2022 Episodic Other aftercare (1 source) senior care (current) use of anticoagulants; Translations: [DETENTION CURRNT USE ANTICOAGULANTS] Onset: 12-26-2021 Episodic Other [...] Test Name Value Interpretation Reference Range Facility [facility] CBC WITH PLATELET NO DI FFERENTIALon 08-10-2024 Erythrocyte distribution width (RBC) [Ratio] 14.4 % 11.0 - 15.0 % [facility] Hematocrit (Bld) [Volume fraction] 30.7 % Low 36.0 - 48.0 % [facility] Hemoglobin (Bld) [Mass/Vol] 9.8 g/dL Low 12.0 - 16.0 g/dL [facility] Interpretation and review of laboratory results Abnormal [facility] MCH (RBC) [Entitic mass] 25.7 pg Low 26.7 - 34.0 pg [facility] MCHC (RBC) [Mass/Vol] 31.9 g/dL 29.9 - 35.2 g/dL [facility] MCV (RBC) [Entitic vol] 80.4 fL Low 81.0 - 99.0 fL [facility] Platelet mean volume (Bld) [Entitic vol] 11.6 fL 9.5 - 13.5 fL [facility] TBH PLT 277 [facility] TB RBC 3.82 Low [facility] TB WBC 13.3 High [facility] Urinalysis macro (dipstick) panel (U)on 08-01-2024 Bilirubin, UA Negative Negative - 4(70) +++ mg/dL [facility] Blood, UA Negative Negative - 50 Shahbaz/mcL [facility] Clarity, UA Clear [facility] Color, UA Yellow [facility] Glucose, UA Negative Negative - 1999(110) ++++ mg/dL [facility] Interpretation and review of laboratory results Abnormal [facility] Ketones, UA Negative Negative - 160(16) ++++ mg/dL [facility] Leukocytes, UA Trace Negative - 500+++ Edward/mcL [facility] Nitrite, UA Negative Negative - Positive [facility] pH, UA 7 5 - 9 [facility] Protein, UA Negative Negative - 1999(20) ++++ mg/dL [facility] Spec Grav, UA 1.01 1 - 1.03 [facility] Urobilinogen, UA 0.2 0.2 - 12 mg/dL [facility] MLR HEMOGLOBIN A1Con 024 Glucose [Mass/Vol] 111 mg/dL [facility] HbA1c (Bld) [Mass fraction] 5.5 % 4.5 - 6.2 % [facility] Comment on above: ADA RECOMMENDED LIMI T 4.0 - 6.0 ADA THERAPEUTIC TARGET < 7.0 ACTION SUGGESTED > 7.0 [facility] Urinalysis macro (dipstick) panel (U)on 07-18-2024 Bilirubin, UA Negative Negative - 4(70) +++ mg/dL [facility] Blood, UA Negative Negative - 50 Shahbaz/mcL [facility] Clarity, UA Clear [facility] Color, UA Yellow [facility] Glucose, UA Negative Negative - 1999(110) ++++ mg/dL [facility] Interpretation and review of laboratory results Abnormal [facility] Ketones, UA Negative Negative - 160(16) ++++ mg/dL [facility] Leukocytes, UA Trace Negative - 500+++ Edward/mcL [facility] Nitrite, UA Negative Negative - Positive [facility] pH, UA 7 5 - 9 [facility] Protein, UA Negative Negative - 1999(20) ++++ mg/dL [facility] Spec Grav, UA 1.015 1 - 1.03 [facility] Urobilinogen, UA 0.2 0.2 - 12 mg/dL [facility] URETHRITIS/DISCHARGE PLUS VA GINITIS (HTRX)on 04-12-2024 ATOPOBIUM VAGINAE 19.927 Abnormal [facility] ATOPOBIUM VAGINAE Detected Abnormal [facility] BVAB 2,3 (BACTERIAL VAGINOSIS ASSOCIATED BACTERIA 2, 3); MOBILUNCUS SPP 0.000 [facility] BVAB 2,3 (BACTERIAL VAGINOSIS ASSOCIATED BACTERIA 2, 3); MOBILUNCUS SPP Not detected [facility] MOY ALBICANS, PARAPSILOSIS, TROPICALIS 0.000 [facility] MOY ALBICANS, PARAPSILOSIS, TROPICALIS Not detected [facility] MOY GLABRATA 0.000 [facility] MOY GLABRATA Not detected [facility] MOY KRUSEI 0.000 [facility] MOY KRUSEI Not detected [facility] CHLAMYDIA TRACHOMATIS 0.000 [facility] CHLAMYDIA TRACHOMATIS Not detected [facility] GARDNERELLA VAGINALIS 20.450 Abnormal [facility] GARDNERELLA VAGINALIS Detected Abnormal [facility] Interpretation and review of laboratory results Abnormal [facility] MEGASPHAERA (TYPES 1, 2) 0.000 [facility] MEGASPHAERA (TYPES 1, 2) Not detected [facility] MYCOPLASMA GENITALIUM 0.000 [facility] MYCOPLASMA GENITALIUM Not detected [facility] NEISSERIA GONORRHOEAE 0.000 [facility] NEISSERIA GONORRHOEAE Not detected [facility] TET B, TET M 18.992 Abnormal [facility] TET B, TET M Detected Abnormal [facility] TRICHOMONAS VAGINALIS 0.000 [facility] TRICHOMONAS VAGINALIS Not detected [facility] ALL CBC WITH AUTO DIFFon BASOPHILS ABSOLUTE AUTO 0.0 [facility] Basophils/100 WBC (Bld) 0.2 % 0.2 - 2.0 % [facility] Eosinophils/100 WBC (Bld) 0.9 % 0.9 - 7.0 % [facility] Erythrocyte distribution width (RBC) [Ratio] 13.4 % 11.0 - 15.0 % [facility] Hematocrit (Bld) [Volume fraction] 33.8 % Low 36.0 - 48.0 % [facility] Hemoglobin (Bld) [Mass/Vol] 11.3 g/dL Low 12.0 - 16.0 g/dL [facility] IMMATURE GRANULOCYTES ABS AUTO 0.11 High [facility] Immature granulocytes/100 WBC (Bld) 0.8 % High 0.0 - 0.5 % [facility] Interpretation and review of laboratory results Abnormal [facility] LYMPHOCYTES ABSOLUTE AUTO 2.3 [facility] Lymphocytes/100 WBC (Bld) 17.5 % Low 20.5 - 60.0 % [facility] MCH (RBC) [Entitic mass] 27.2 pg 26.7 - 34.0 pg [facility] MCHC (RBC) [Mass/Vol] 33.4 g/dL 29.9 - 35.2 g/dL [facility] MCV (RBC) [Entitic vol] 81.3 fL 81.0 - 99.0 fL [facility] MONOCYTES ABSOLUTE AUTO 0.7 [facility] Monocytes/100 WBC (Bld) 5.4 % 1.7 - 12.0 % [facility] NEUTROPHILS ABSOLUTE AUTO 10.0 High [facility] Neutrophils/100 WBC (Bld) 75.2 % High 43.0 - 75.0 % [facility] Platelet mean volume (Bld) [Entitic vol] 10.7 fL 9.5 - 13.5 fL [facility] TBH EO # 0.1 [facility] TBH PLT 262 [facility] TB RBC 4.16 Low [facility] WBC 13.3 High [facility] Urinalysis macro (dipstick) panel (U)on 04-11-2024 Bilirubin, UA Negative Negative - 4(70) +++ mg/dL [facility] Blood, UA Negative Negative - 50 Shahbaz/mcL [facility] Clarity, UA Clear [facility] Color, UA Yellow [facility] Glucose, UA Negative Negative - 1999(110) ++++ mg/dL [facility] Interpretation and review of laboratory results Normal [facility] Ketones, UA Negative Negative - 160(16) ++++ mg/dL [facility] Leukocytes, UA Negative Negative - 500+++ Edward/mcL [facility] Nitrite, UA Negative Negative - Positive [facility] pH, UA 6.5 5 - 9 [facility] Protein, UA Negative Negative - 1999(20) ++++ mg/dL [facility] Spec Grav, UA 1.015 1 - 1.03 [facility] Urobilinogen, UA 0.2 0.2 - 12 mg/dL [facility] GLUCOSE - 1HRon 12-10-2022 Glucose [Mass/Vol] 98 mg/dL Normal 74-106 [facility] Comment on above: Performed By: #### G LU1 #### [facility] [address] [place] [address] Dr. Sara Matos HEMOGRAM AND PLATELon 2022 Hematocrit (Bld) [Volume fraction] 33.8 % Critically low 36.0-48.0 [facility] Comment on above: Performed By: #### T SH #### [facility] [address] [place] [address] Dr. Sara Matos Hemoglobin (Bld) [Mass/Vol] 11.1 g/dL Critically low 12.0-16.0 [facility] Comment on above: Performed By: #### T SH #### [facility] [address] [place] [address] Dr. Sara Matos MCH (RBC) [Entitic mass] 28.6 pg Normal 26.7-34.0 [facility] Comment on above: Performed By: #### T SH #### [facility] [address] [place] [address] Dr. Sara Matos MCHC (RBC) [Mass/Vol] 32.8 g/dL Normal 29.9-35.2 [facility] Comment on above: Performed By: #### T SH #### [facility] [address] [place] [address] Dr. Sara Matos MCV (RBC) [Entitic vol] 87.1 fL Normal 81.0-99.0 [facility] Comment on above: Performed By: #### T SH #### [facility] [address] [place] [address] Dr. Sara Matos PLT 188 103/ul Normal 150-450 [facility] Comment on above: Performed By: #### T SH #### [facility] [address] [place] [address] Dr. Sara Matos RBC 3.88 106/ul Critically low 4.20-5.40 [facility] Comment on above: Performed By: #### T SH #### [facility] [address] [place] [address] Dr. Sraa Matos WBC 9.8 103/ul Normal 4.0-11.0 [facility] Comment on above: Performed By: #### T #### [facility] [address] [address] [address] Sara Matos US PREG ANATOMY SINGLEon [...] LA O Date: 2022-12-02 15:25 Normal [facility] HEP B SURFACE ANTIGEN SCREEN on 11-18-2022 HBsAg Screen Negative Normal Negative [facility] Comment on above: Performed By: #### E JAIME SINHA #### [facility] [address] [place] [address] Dr. Sara Matos HEPATITIS C VIRUS AB W/ REFL EX QUANTon 11-18-2022 HCV AB Non-Reactive Normal Non Reactive [facility] Comment on above: Performed By: #### E RUR, UMICRO #### [facility] [address] [place] [address] Dr. Sara Matos Interpretation: Comment Normal [facility] Comment on above: Result Comment: Not infected with HCV unless early or acute infection is suspected (which may be delayed in an immunocompromised individual), or other evidence exists to indicate HCV infection. Performed By: #### E RUR, UMICRO #### [facility] [address] [place] [address] Dr. Sara Matos HIV 1 AND 2 WITH REFLEXon HIV Screen 4th Generation wRfx Non-Reactive Normal Non Reactive [facility] Comment on above: Result Comment: HIV Negative HIV-1/HIV-2 antibodies and HIV-1 p24 antigen were NOT detected. There is no laboratory evidence of HIV infection. Performed By: #### E LONDONR, UMJONIRO #### [facility] [address] [place] [address] Dr. Sara Matos RPR QUANTon 11-18-2022 Rapid Plasma Reagin, Quant Non-Reactive Normal NonRea<1:1 [facility] Comment on above: Result Comment: Plea se Note: This test does not meet current guidelines for screening and diagnosis of syphilis. This test is intended for following treatment response in patients being treated for syphilis infection. To screen for syphilis infection, a reflex cascade that includes both RPR and a treponema-specific assay should be utilized, such as Treponema pallidum (Syphilis) Screening Desoto (790035) or Rapid Plasma Reagin (RPR) Test With Reflex to Quantitative RPR and Confirmatory Treponema pallidum Antibodies (660283). Performed By: #### T SH #### [facility] [address] [place] [address] Dr. Sara Matos RUBELLA AB IGGon 11-18-2022 Rubella Antibodies, IgG 3.67 index Normal Immune >0.99 [facility] Comment on above: Result Comment: Non- immune <0.90 Equivocal 0.90 - 0.99 Immune >0.99 Performed By: #### T SH #### [facility] [address] [place] [address] Dr. Sara Matos BOX TEST SENT OUTon 11-18-19 23 SENT TO REF LAB 11/17/2022 Normal [facility] Comment on above: Performed By: #### T SH #### [facility] [address] [place] [address] Dr. Sara Matos CBC AUTO DIFFon 11-17-2022 BASO # 0.0 103/ul Normal 0.0-0.1 [facility] Comment on above: Performed By: #### KACY GODWINRO #### [facility] [address] [place] [address] Dr. Sara Matos Basophils/100 WBC (Bld) 0.4 % Normal 0.2-2.0 [facility] Comment on above: Performed By: #### FLORENTINO GODWINICRO #### [facility] [address] [place] [address] Dr. Sara Matos EO # 0.1 103/ul Normal 0.0-0.7 [facility] Comment on above: Performed By: #### FLORENTINO GODWINICRO #### [facility] [address] [place] [address] Dr. Sara Matos Eosinophils/100 WBC (Bld) 1.3 % Normal 0.9-7.0 [facility] Comment on above: Performed By: #### FLORENTINO GODWINICRO #### [facility] [address] [place] [address] Dr. Sara Matos Erythrocyte distribution width (RBC) [Ratio] 12.3 % Normal 11.0-15.0 [facility] Comment on above: Performed By: #### Sha SINHA, UMICRO #### [facility] [address] [place] [address] Dr. Sara Matos Hematocrit (Bld) [Volume fraction] 33.6 % Critically low 36.0-48.0 [facility] Comment on above: Performed By: #### Sha SINHA, UMICRO #### [facility] [address] [place] [address] Dr. Sara Matos Hemoglobin (Bld) [Mass/Vol] 11.3 g/dL Critically low 12.0-16.0 [facility] Comment on above: Performed By: #### FLORENTINO GODWINICRO #### [facility] [address] [place] [address] Dr. Sara Matos IG # 0.04 10e3/ul Critically high 0.00-0.03 [facility] Comment on above: Performed By: #### Sha SINHA UMICRO #### [facility] [address] [place] [address] Dr. Sara Matos IG % 0.4 % Normal 0.0-0.5 [facility] Comment on above: Performed By: #### Sha SINHA UMICRO #### [facility] [address] [place] [address] Dr. Sara Matos LYMPH # 1.7 103/ul Normal 1.2-3.8 [facility] Comment on above: Performed By: #### FLORENTINO GODWINICRO #### [facility] [address] [place] [address] Dr. Sara Matos Lymphocytes/100 WBC (Bld) 16.7 % Critically low 20.5-60.0 [facility] Comment on above: Performed By: #### FLORENTINO GODWINICRO #### [facility] [address] [place] [address] Dr. Sara Matos MANUAL DIFF REQ NO Normal [facility] Comment on above: Performed By: #### FLORENTINO GODWINICRO #### [facility] [address] [place] [address] Dr. Sara Matos MCH (RBC) [Entitic mass] 28.8 pg Normal 26.7-34.0 [facility] Comment on above: Performed By: #### Sha SINHA UMICRO #### [facility] [address] [place] [address] Dr. Sara Matos MCHC (RBC) [Mass/Vol] 33.6 g/dL Normal 29.9-35.2 [facility] Comment on above: Performed By: #### Sha SINHA UMICRO #### [facility] [address] [place], [place] [id number] Dr. Sara Matos MCV (RBC) [Entitic vol] 85.5 fL Normal 81.0-99.0 [facility] Comment on above: Performed By: #### FLORENTINO GODWINICRO #### [facility] [address] [place] [address] Dr. Sara Matos MONO # 0.6 103/ul Normal 0.3-0.8 [facility] Comment on above: Performed By: #### Sha SINHA UMICRO #### [facility] [address] [place] [address] Dr. Sara Matos Monocytes/100 WBC (Bld) 5.9 % Normal 1.7-12.0 [facility] Comment on above: Performed By: #### Sha SINHA UMICRO #### [facility] [address] [place] [address] Dr. Sara Matos NEUT # 7.7 103/ul Critically high 1.4-6.5 [facility] Comment on above: Performed By: #### Sha SINHA ICRO #### [facility] [address] [place] [address] Dr. Sara Matos Neutrophils/100 WBC (Bld) 75.3 % Critically high 43.0-75.0 [facility] Comment on above: Performed By: #### Sha SINHA UMICRO #### [facility] [address] [place] [address] Dr. Sara Matos Platelet mean volume (Bld) [Entitic vol] 11.2 fL Normal 9.5-13.5 [facility] Comment on above: Performed By: #### Sha SINHA UMICRO #### [facility] [address] [place] [address] Dr. Sara Matos PLT 217 103/ul Normal 150-450 [facility] Comment on above: Performed By: #### Sha SINHA, UMICRO #### [facility] [address] [place] [address] Dr. Sara Matos RBC 3.93 106/ul Critically low 4.20-5.40 [facility] Comment on above: Performed By: #### KACY GODWINRO #### [facility] [address] [address] [address] Sara aMtos WBC 10.2 103/ul Normal 4.0-11.0 [facility] Comment on above: Performed By: #### E KACY SINHARO #### [facility] [address] [address] [address] Sara Matos CULTURE URINEon 11-17-2022 CULTURE URINE Culture Observations : HEAVY GROWTH OF MIXED GENITAL JP. NO POTENTIAL PATHOGENS SEEN. Normal [facility] Comment on above: Performed By: #### KACY GODWINRO #### [facility] [address] [place] [address] Dr. Sara Matos DRUG SCREEN RAPID (URINE)on 11-17-2022 AMP Negative Normal NEGATIVE [facility] Comment on above: Performed By: #### P REGU, DRUGRPD #### [facility] [address] [place] [address] Dr. Sara Matos BAR Negative Normal NEGATIVE [facility] Comment on above: Performed By: #### P REGU, DRUGRPD #### [facility] [address] [address] [address] Sara Matos BUP Negative Normal NEGATIVE [facility] Comment on above: Performed By: #### P REGU, DRUGRPD #### [facility] [address] [place] [address] Dr. Sara Matos BZO Negative Normal NEGATIVE [facility] Comment on above: Performed By: #### P REGU, DRUGRPD #### [facility] [address] [place] [address] Dr. Sara Matos COLLEEN Negative Normal NEGATIVE [facility] Comment on above: Performed By: #### P REGU, DRUGRPD #### [facility] [address] [place] [address] Dr. Sara Matos CUT-OFFS SEE BELOW Normal [facility] Comment on above: Result Comment: AMP [...] Performed By: #### P REGU, DRUGRPD #### [facility] [address] [place] [address] Dr. Sara Matos DRUG CUT HEADER DRUG CLASS TEST SYSTEM CUT-OFF CONCENTRATIONS ARE FOLLOWS: Normal [facility] Comment on above: Performed By: #### P REGU, DRUGRPD #### [facility] [address] [place] [address] Dr. Sara Matos mAMP Negative Normal NEGATIVE [facility] Comment on above: Performed By: #### P REGU, DRUGRPD #### [facility] [address] [place] [address] Dr. Sara Matos MTD Negative Normal NEGATIVE [facility] Comment on above: Performed By: #### P REGU, DRUGRPD #### [facility] [address] [place] [address] Dr. Sara Matos OPI Negative Normal NEGATIVE [facility] Comment on above: Performed By: #### P REGU, DRUGRPD #### [facility] [address] [place] [address] Dr. Sara Matos OXY Negative Normal NEGATIVE [facility] Comment on above: Performed By: #### P REGU, DRUGRPD #### [facility] [address] [place] [address] Dr. Sara Matos PCP Negative Normal NEGATIVE [facility] Comment on above: Performed By: #### P REGU, DRUGRPD #### [facility] [address] [place] [address] Dr. Sara Matos PPX Negative Normal NEGATIVE [facility] Comment on above: Performed By: #### P REGU, DRUGRPD #### [facility] [address] [address] [address] Sara Matos TCA Negative Normal NEGATIVE [facility] Comment on above: Performed By: #### P REGU, DRUGRPD #### [facility] [address] [address] [address] Sara Matos THC Negative Normal NEGATIVE [facility] Comment on above: Performed By: #### P REGU, DRUGRPD #### [facility] [address] [address] [address] Sara Matos GLYCOHEMOGLOBIN A1Con 2022 ADA RECOMMENDATION SEE BELOW Normal [facility] Comment on above: Result Comment: ADA RECOMMENDED LIMIT 4.0 - 6.0 ADA THERAPEUTIC TARGET < 7.0 ACTION SUGGESTED > 7.0 Performed By: #### A 1C #### [facility] [address] [place] [address] Dr. Sara Matos Glucose [Mass/Vol] 85 mg/dL Normal [facility] Comment on above: Performed By: #### A 1C #### [facility] [address] [address] [address] Sara Matos HbA1c (Bld) [Mass fraction] 4.6 % Normal 4.5-6.2 [facility] Comment on above: Performed By: #### A 1C #### [facility] [address] [place] [address] Dr. Sara Matos URon 11-17-2022 , QUAL Positive Abnormal NEGATIVE [facility] Comment on above: Performed By: #### P REGU, DRUGRPD #### [facility] [address] [address] [address] Sara Matos TYPE AND SCREENon 11-17-2022 TYPE AND SCREEN Negative Normal [facility] Comment on above: Performed By: #### JAIME GODWIN #### [facility] [address] [address] [address] Sara Matos US PREG DATING >[id number] [...] LA O Date: 2022-09-07 10:38 Normal [facility] CHLAMYDIA/GONOCOCCUS DEENA (SW AB/URINE/PAPon 06-10-2022 Chlamydia trachomatis, DEENA Negative Normal Negative [facility] Comment on above: Performed By: #### T SH #### [facility] [address] [place] [address] Dr. Sara Matos Neisseria gonorrhoeae, DEENA Negative Normal Negative [facility] Comment on above: Performed By: #### T SH #### [facility] [address] [place] [address] Dr. Sara Matos GENITAL CULTUREon 06-09-2022 Genital Culture, Routine NOBACT Normal [facility] Comment on above: Result Comment: Test [...] Performed By: #### E JAIME SINHA #### [facility] [address] [place] [address] Dr. Sara Matos ER URINE PROFILEon Bilirubin Ql (U) Negative Normal NEGATIVE [facility] Comment on above: Performed By: #### Sha SINHA UMICRO #### [facility] [address] [place] [address] Dr. Sara Matos Clarity (U) CLEAR Normal CLEAR [facility] Comment on above: Performed By: #### Sha SINHA UMICRO #### [facility] [address] [place] [address] Dr. Sara Matos Color (U) LT. YELLOW Normal YELLOW [facility] Comment on above: Performed By: #### Sha SINHA UMICRO #### [facility] [address] [place] [address] Dr. Sara Matos ERUAHD A micrscopic examination will be performed if indicated. Normal [facility] Comment on above: Performed By: #### Sha SINHA UMICRO #### [facility] [address] [place] [address] Dr. Sara Matos Glucose Ql (U) Negative Normal NEGATIVE [facility] Comment on above: Performed By: #### Sha SINHA UMICRO #### [facility] [address] [place] [address] Dr. Sara Matos Hemoglobin Ql (U) Negative Normal NEGATIVE [facility] Comment on above: Performed By: #### Sha SINHA UMICRO #### [facility] [address] [place] [address] Dr. Sara aMtos Ketones Ql (U) Negative Normal NEGATIVE [facility] [facility] Comment [facility]: Performed By: #### Sha SINHA UMICRO #### [facility] [address] [place] [address] Dr. Sara Matos LEUKOCYTES TRACE Abnormal NEGATIVE [facility] Comment on above: Performed By: #### Sha SINHA UMICRO #### [facility] [address] [place] [address] Dr. Sara Matos Nitrite Ql (U) Negative Normal NEGATIVE [facility] Comment on above: Performed By: #### Sha SINHA UMICRO #### [facility] [address] [place] [address] Dr. Sara Matos pH (U) 6.0 [pH] Normal 5-9 [facility] Comment on above: Performed By: #### Sha SINHA UMICRO #### [facility] [address] [place] [address] Dr. Sara Matos SPEC GRAVITY 1.015 Normal 1.005-<=1.025 [facility] Comment on above: Performed By: #### Sha SINHA UMICRO #### [facility] [address] [place] [address] Dr. Sara Matos UA PROTEIN Negative Normal NEGATIVE/ TRACE [facility] Comment on above: Performed By: #### Sha SINHA UMICRO #### [facility] [address] [place] [address] Dr. Sara Matos UR MICRO IND INDICATED Normal [facility] Comment on above: Performed By: #### Sha SINHA UMICRO #### [facility] [address] [place] [address] Dr. Sara Matos Urobilinogen Qn (U) 0.2 {Ana'U}/dL Normal 0.2 - 1. 0 [facility] Comment on above: Performed By: #### Sha SINHA UMICRO #### [facility] [address] [place] [address] Dr. Sara Matos URon 06-06-2022 , QUAL Negative Normal NEGATIVE [facility] Comment on above: Performed By: #### P REGU #### [facility] [address] [place] [address] Dr. Sara Matos URINE MICROSCOPIC ONLYon BACTERIA NONE SEEN Normal NONE SEEN [facility] Comment on above: Performed By: #### Sha SINHA UMICRO #### [facility] [address] [place] [address] Dr. Sara Matos Bacteria identified Cx Nom (U) NOT INDICATED Normal [facility] Comment on above: Performed By: #### Sha SINHA UMICRO #### [facility] [address] [place] [address] Dr. Sara Matos CAST NONE SEEN Normal NONE SEEN [facility] Comment on above: Performed By: #### E RUR, UMICRO #### [facility] [address] [address] [address] Sara Matos Crystals LM Nom (Urine sed) NONE SEEN Normal NONE SEEN [facility] Comment on above: Performed By: #### E RUR, UMICRO #### [facility] [address] [place] [address] Dr. Sara Matos Epithelial cells LM Ql (Urine sed) FEW Abnormal NONE SEEN /RARE [facility] Comment on above: Performed By: #### E RUR, UMICRO #### [facility] [address] [place] [address] Dr. Sara Matos MUCOUS NONE SEEN Normal NONE SEEN [facility] Comment on above: Performed By: #### E RUR, UMICRO #### [facility] [address] [place] [address] Dr. Sara Matos RBC NONE SEEN Abnormal 0-2 [facility] Comment on above: Performed By: #### Sha SINHA, UMICRO #### [facility] [address] [place] [address] Dr. Sara Matos WBC 0-2 Abnormal NONE SEEN [facility] Comment on above: Performed By: #### E BHARATH, UMICRO #### [facility] [address] [place] [address] Dr. Sara Matos WET PREPon 06-06-2022 CLUE CELLS NONE SEEN Normal NONE SEEN [facility] Comment on above: Performed By: #### T SH #### [facility] [address] [place] [address] Dr. Sara Matos FUNGAL ELEMENTS NONE SEEN Normal NONE SEEN [facility] Comment on above: Performed By: #### T SH #### [facility] [address] [place] [address] Dr. Sara Matos RBC -WET PREP NONE SEEN Normal NONE SEEN [facility] Comment on above: Performed By: #### T SH #### [facility] [address] [place] [address] Dr. Sara Matos TRICHOMONAS NONE SEEN Normal NONE SEEN [facility] Comment on above: Performed By: #### T SH #### [facility] [address] [address] [address] Sara Matos WBC- WET PREP FEW Abnormal NONE SEEN [facility] Comment on above: Performed By: #### T SH #### [facility] [address] [address] [address] Sara Matos WET PREP BACTERIA NONE SEEN Normal NONE SEEN [facility] Comment on above: Performed By: #### T SH #### [facility] [address] [address] [address] Sara Matos Abstracton 04-25-2022 Abstract [id number] Astrid Montague 1995 Date Provider Department Center 04/25/2022 LILIAN AGUIRRE DAISY [facility] Family History Problem Relation Age of Onset Heart attack Maternal Grandmother Coronary artery disease Maternal Grandmother Family Status - Relation Status Age at Maternal Grandmother Paternal Grandmother Normal [facility] Abstracton 04-22-2022 Abstract [id number] Astrid Montague 1995 Date Provider Department Center 04/22/2022 YURIDIA CARO DAISY [facility] Family History Problem Relation Age of Onset Heart attack Paternal Grandmother Family Status - Relation Status Age at Paternal Grandmother Normal [facility] US GUY DOP LEG LTon 04-01-20 [...] LA O Date: 2022-04-01 17:05 Normal [facility] METANEPHRINES PLASMA FREEon 02-04-2022 Metanephrine, Pl 13.7 pg/mL Normal 0.0-88.0 [facility] Comment on above: Performed By: #### P REGU, DRUGRPD #### [facility] [address] [address] [address] Sara Matos Normetanephrine, Pl 45.6 pg/mL Normal 0.0-210.1 [facility] Comment on above: Performed By: #### P URIEL, DRUGRPD #### [facility] [address] [place] [address] Dr. Sara Matos CARDIAC ANTONY ADMITon 022 CK [Catalytic activity/Vol] 67 U/L Normal 26-192 [facility] Comment on above: Performed By: #### T SH #### [facility] [address] [place] [address] Dr. Sara Matos CK.MB [Mass/Vol] 0.99 ng/mL Normal <=3.60 [facility] Comment on above: Performed By: #### T SH #### [facility] [address] [place] [address] Dr. Sara Matos HSTROP 4.7 pg/mL Normal 4.0-51.3 [facility] Comment on above: Result Comment: CUT- OFF POINTS HAVE BEEN ESTABLISHED BASED ON THE FOURTH UNIVERSAL DEFINITIONS OF MYOCARDIAL INFARCTION. THE UPPER REFERENCE LIMIT (URL) OF TROPONIN, DEFINED THE 99TH PERCENTILE OF cTnI DISTRIBUTION IN A REFERENCE POPULATION, HAS BEEN CONFIRMED THE DECISION THRESHOLD FOR NE DIAGNOSIS. Performed By: #### T SH #### [facility] [address] [place] [address] Dr. Sara Matos ELENA 34 ng/mL Normal 9-82 [facility] Comment on above: Performed By: #### T SH #### [facility] [address] [place] [address] Dr. Sara Matos CBC AUTO DIFFon 01-30-2022 BASO # 0.1 103/ul Normal 0.0-0.1 [facility] Comment on above: Performed By: #### T SH #### [facility] [address] [place] [address] Dr. Sara Matos Basophils/100 WBC (Bld) 0.8 % Normal 0.2-2.0 [facility] Comment on above: Performed By: #### T SH #### [facility] [address] [place] [address] Dr. Sara Matos EO # 0.1 103/ul Normal 0.0-0.7 [facility] Comment on above: Performed By: #### T SH #### [facility] [address] [place] [address] Dr. Sara Matos Eosinophils/100 WBC (Bld) 0.6 % Critically low 0.9-7.0 [facility] Comment on above: Performed By: #### T SH #### [facility] [address] [place] [address] Dr. Sara Matos Erythrocyte distribution width (RBC) [Ratio] 13.6 % Normal 11.0-15.0 [facility] Comment on above: Performed By: #### T SH #### [facility] [address] [place] [address] Dr. Sara Matos Hematocrit (Bld) [Volume fraction] 40.4 % Normal 36.0-48.0 [facility] Comment on above: Performed By: #### T SH #### [facility] [address] [place] [address] Dr. Sara Matos Hemoglobin (Bld) [Mass/Vol] 13.0 g/dL Normal 12.0-16.0 [facility] Comment on above: Performed By: #### T SH #### [facility] [address] [place] [address] Dr. Sara Matos IG # 0.03 10e3/ul Normal 0.00-0.03 [facility] Comment on above: Performed By: #### T SH #### [facility] [address] [place] [address] Dr. Sara Matos IG % 0.3 % Normal 0.0-0.5 [facility] Comment on above: Performed By: #### T SH #### [facility] [address] [place] [address] Dr. Sara Matos LYMPH # 2.6 103/ul Normal 1.2-3.8 [facility] Comment on above: Performed By: #### T SH #### [facility] [address] [place] [address] Dr. Sara Matos Lymphocytes/100 WBC (Bld) 26.5 % Normal 20.5-60.0 [facility] Comment on above: Performed By: #### T SH #### [facility] [address] [place] [address] Dr. Sara Matos MANUAL DIFF REQ NO Normal [facility] Comment on above: Performed By: #### T SH #### [facility] [address] [place] [address] Dr. Sara Matos MCH (RBC) [Entitic mass] 26.9 pg Normal 26.7-34.0 [facility] Comment on above: Performed By: #### T SH #### [facility] [address] [place] [address] Dr. Sara Matos MCHC (RBC) [Mass/Vol] 32.2 g/dL Normal 29.9-35.2 [facility] Comment on above: Performed By: #### T SH #### [facility] [address] [place] [address] Dr. Sara Matos MCV (RBC) [Entitic vol] 83.6 fL Normal 81.0-99.0 [facility] Comment on above: Performed By: #### T SH #### [facility] [address] [place] [address] Dr. Sara Matos MONO # 0.6 103/ul Normal 0.3-0.8 [facility] Comment on above: Performed By: #### T SH #### [facility] [address] [place] [address] Dr. Sara Matos Monocytes/100 WBC (Bld) 6.4 % Normal 1.7-12.0 [facility] Comment on above: Performed By: #### T SH #### [facility] [address] [place] [address] Dr. Sara Matos NEUT # 6.3 103/ul Normal 1.4-6.5 [facility] Comment on above: Performed By: #### T SH #### [facility] [address] [place] [address] Dr. Sara Matos Neutrophils/100 WBC (Bld) 65.4 % Normal 43.0-75.0 [facility] Comment on above: Performed By: #### T SH #### [facility] [address] [place] [address] Dr. Sara Matos Platelet mean volume (Bld) [Entitic vol] 11.8 fL Normal 9.5-13.5 [facility] Comment on above: Performed By: #### T SH #### [facility] [address] [place] [address] Dr. Sara Matos PLT 218 103/ul Normal 150-450 [facility] Comment on above: Performed By: #### T SH #### [facility] [address] [place] [address] Dr. Sara Matos RBC 4.83 106/ul Normal 4.20-5.40 [facility] Comment on above: Performed By: #### T SH #### [facility] [address] [place] [address] Dr. Sara Matos WBC 9.6 103/ul Normal 4.0-11.0 [facility] Comment on above: Performed By: #### T SH #### [facility] [address] [place] [address] Dr. Sara Matos ER URINE PROFILEon 2 Bilirubin Ql (U) Negative Normal NEGATIVE [facility] Comment on above: Performed By: #### KACY GODWINRO #### [facility] [address] [place] [address] Dr. Sara Matos Clarity (U) CLEAR Normal CLEAR [facility] Comment on above: Performed By: #### KACY GODWINRO #### [facility] [address] [place] [address] Dr. Sara Matos Color (U) LT. YELLOW Normal YELLOW [facility] Comment on above: Performed By: #### KACY GODWINRO #### [facility] [address] [place] [address] Dr. Sara BUCKNER A micrscopic examination will be performed if indicated. Normal [facility] Comment on above: Performed By: #### Sha SINHA UMICRO #### [facility] [address] [address] [address] Sara Matos Glucose Ql (U) Negative Normal NEGATIVE [facility] Comment on above: Performed By: #### Sha SINHA UMICRO #### [facility] [address] [address] [address] Sara Matos Hemoglobin Ql (U) LARGE Abnormal NEGATIVE [facility] Comment on above: Performed By: #### Sha SINHA UMICRO #### [facility] [address] [address] [address] Sara Matos Ketones Ql (U) Negative Normal NEGATIVE [facility] Comment on above: Performed By: #### Sha SINHA UMICRO #### [facility] [address] [place] [address] Dr. Sara Matos LEUKOCYTES Negative Normal NEGATIVE [facility] Comment on above: Performed By: #### Sha SINHA UMICRO #### [facility] [address] [place] [address] Dr. Sara Matos Nitrite Ql (U) Negative Normal NEGATIVE [facility] Comment on above: Performed By: #### Sha SINHA UMICRO #### [facility] [address] [place] [address] Dr. Sara Matos pH (U) 6.0 [pH] Normal 5-9 [facility] Comment on above: Performed By: #### Sha SINHA UMICRO #### [facility] [address] [address] [address] Sara Matos SPEC GRAVITY <=1.005 Abnormal 1.005-<=1.025 [facility] Comment on above: Performed By: #### Sha SINHA UMICRO #### [facility] [address] [place] [address] Dr. Sara Matos UA PROTEIN Negative Normal NEGATIVE/ TRACE [facility] Comment on above: Performed By: #### Sha SINHA UMICRO #### [facility] [address] [place] [address] Dr. Sara Matos UR MICRO IND INDICATED Normal [facility] Comment on above: Performed By: #### JAIME GODWIN #### [facility] [address] [place] [address] Dr. Sara Matos Urobilinogen Qn (U) 0.2 {Ana'U}/dL Normal 0.2 - 1. 0 [facility] Comment on above: Performed By: #### JAIME GODWIN #### [facility] [address] [place] [address] Dr. Sara Matos PREG HCG QUALon 01-30-2022 , QUAL Negative Normal NEGATIVE [facility] Comment on above: Performed By: #### JAIME GODWIN #### [facility] [address] [place] [address] Dr. Sara Matos PROF 14(COMP METB)on 022 Albumin [Mass/Vol] 4.3 g/dL Normal 3.4-5.[address] [facility] Comment on above: Performed By: #### T SH #### [facility] [address] [place] [address] Dr. Sara Matos Albumin/Globulin [Mass ratio] 1.2 {ratio} Normal [facility] Comment on above: Performed By: #### T SH #### [facility] [address] [place] [address] Dr. Sara Matos ALP [Catalytic activity/Vol] 63 U/L Normal 46-116 [facility] Comment on above: Performed By: #### T SH #### [facility] [address] [place] [address] Dr. Sara Matos ALT [Catalytic activity/Vol] 35 U/L Normal 14-59 [facility] Comment on above: Performed By: #### T SH #### [facility] [address] [place] [address] Dr. Sara Matos Anion gap [Moles/Vol] 9.7 mmol/L Normal [facility] Comment on above: Performed By: #### T SH #### [facility] [address] [place] [address] Dr. Sara Matos AST [Catalytic activity/Vol] 19 U/L Normal 15-37 [facility] Comment on above: Performed By: #### T SH #### [facility] [address] [place] [address] Dr. Sara Matos Bilirubin [Mass/Vol] 0.4 mg/dL Normal 0.2-1.0 [facility] Comment on above: Performed By: #### T SH #### [facility] [address] [place] [address] Dr. Sara Matos Calcium [Mass/Vol] 9.3 mg/dL Normal 8.5-10.[address] [facility] Comment on above: Performed By: #### T SH #### [facility] [address] [place] [address] Dr. Sara Matos Chloride [Moles/Vol] 101 mmol/L Normal 98-107 [facility] Comment on above: Performed By: #### T SH #### [facility] [address] [place] [address] Dr. Sara Matos CO2 [Moles/Vol] 27.8 mmol/L Normal 21.0-32.0 [facility] Comment on above: Performed By: #### T SH #### [facility] [address] [place] [address] Dr. Sara Matos Creatinine [Mass/Vol] 0.78 mg/dL Normal 0.55-1.02 [facility] Comment on above: Performed By: #### T SH #### [facility] [address] [place] [address] Dr. Sara Matos EGFR-AF EMIRATI >60 Normal >=60 [facility] Comment on above: Performed By: #### T SH #### [facility] [address] [place] [address] Dr. Sara Matos EGFR-NON AF EMIRATI >60 Normal >=60 [facility] Comment on above: Performed By: #### T SH #### [facility] [address] [place] [address] Dr. Sara Matos Globulin (S) [Mass/Vol] 3.5 g/dL Normal [facility] Comment on above: Performed By: #### T SH #### [facility] [address] [place] [address] Dr. Sara Matos Glucose [Mass/Vol] 89 mg/dL Normal 74-[address] [facility] Comment on above: Performed By: #### T SH #### [facility] [address] [place] [address] Dr. Sara Matos Potassium [Moles/Vol] 3.5 mmol/L Normal 3.5-5.1 [facility] Comment on above: Performed By: #### T SH #### [facility] [address] [place] [address] Dr. Sara Matos Protein [Mass/Vol] 7.8 g/dL Normal 6.4-8.[address] [facility] Comment on above: Performed By: #### T SH #### [facility] [address] [place] [address] Dr. Sara Matos Sodium [Moles/Vol] 135 mmol/L Critically low 136-145 [facility] Comment on above: Performed By: #### T SH #### [facility] [address] [place] [address] Dr. Sara Matos Urea nitrogen [Mass/Vol] 6.0 mg/dL Critically low 7.0-18.0 [facility] Comment on above: Performed By: #### T SH #### [facility] [address] [place] [address] Dr. Sara Matos Urea nitrogen/Creatinine [Mass ratio] 7.7 mg/mg Normal [facility] Comment on above: Performed By: #### T SH #### [facility] [address] [place] [address] Dr. Sara Matos URINE MICROSCOPIC ONLYon BACTERIA NONE SEEN Normal NONE SEEN [facility] Comment on above: Performed By: #### E JAIME SINHA #### [facility] [address] [place] [address] Dr. Sara Maots Bacteria identified Cx Nom (U) NOT INDICATED Normal [facility] Comment on above: Performed By: #### Sha SINHA UMICRO #### [facility] [address] [place] [address] Dr. Sara Matos CAST NONE SEEN Normal NONE SEEN [facility] Comment on above: Performed By: #### Sha SINHA, UMICRO #### [facility] [address] [place] [address] Dr. Sara Matos Crystals LM Nom (Urine sed) NONE SEEN Normal NONE SEEN [facility] Comment on above: Performed By: #### Sha SINHA UMICRO #### [facility] [address] [place] [address] Dr. Sara Matos Epithelial cells LM Ql (Urine sed) RARE Normal NONE SEEN /RARE [facility] Comment on above: Performed By: #### Sha SINHA UMICRO #### [facility] [address] [place] [address] Dr. Sara Matos MUCOUS NONE SEEN Normal NONE SEEN [facility] Comment on above: Performed By: #### Sha SINHA UMICRO #### [facility] [address] [place] [address] Dr. Sara Matos RBC 0-2 Normal 0-2 [facility] Comment on above: Performed By: #### Sha SINHA UMICRO #### [facility] [address] [place] [address] Dr. Sara Matos WBC 0-2 Abnormal NONE SEEN [facility] Comment on above: Performed By: #### Sha SINHA UMICRO #### [facility] [address] [place] [address] Dr. Sara Matos CBC AUTO DIFFon 01-24-2022 BASO # 0.1 103/ul Normal 0.0-0.1 [facility] Comment on above: Performed By: #### Sha SINHA UMICRO #### [facility] [address] [place] [address] Dr. Sara Matos Basophils/100 WBC (Bld) 0.5 % Normal 0.2-2.0 [facility] Comment on above: Performed By: #### KACY GODWINRO #### [facility] [address] [place] [address] Dr. Sara Matos EO # 0.0 103/ul Normal 0.0-0.7 [facility] Comment on above: Performed By: #### KACY GODWINRO #### [facility] [address] [place] [address] Dr. Sara Matos Eosinophils/100 WBC (Bld) 0.4 % Critically low 0.9-7.0 [facility] Comment on above: Performed By: #### KACY GODWINRO #### [facility] [address] [place] [address] Dr. Sara Matos Erythrocyte distribution width (RBC) [Ratio] 13.3 % Normal 11.0-15.0 [facility] Comment on above: Performed By: #### KACY GODWINRO #### [facility] [address] [place] [address] Dr. Sara Matos Hematocrit (Bld) [Volume fraction] 39.4 % Normal 36.0-48.0 [facility] Comment on above: Performed By: #### KACY GODWINRO #### [facility] [address] [place] [address] Dr. Sara Matos Hemoglobin (Bld) [Mass/Vol] 12.9 g/dL Normal 12.0-16.0 [facility] Comment on above: Performed By: #### KACY GODWINRO #### [facility] [address] [place] [address] Dr. Sara Matos IG # 0.03 10e3/ul Normal 0.00-0.03 [facility] Comment on above: Performed By: #### KACY GODWINRO #### [facility] [address] [place] [address] Dr. Sara Matos IG % 0.3 % Normal 0.0-0.5 [facility] Comment on above: Performed By: #### JAIME GODWIN #### [facility] [address] [place] [address] Dr. Sara Matos LYMPH # 2.8 103/ul Normal 1.2-3.8 [facility] Comment on above: Performed By: #### JAIME GODWIN #### [facility] [address] [place] [address] Dr. Sara Matos Lymphocytes/100 WBC (Bld) 25.3 % Normal 20.5-60.0 [facility] Comment on above: Performed By: #### KACY GODWINRO #### [facility] [address] [place] [address] Dr. Sara Matos MANUAL DIFF REQ NO Normal [facility] Comment on above: Performed By: #### KACY GODWINRO #### [facility] [address] [place] [address] Dr. Sara Matos MCH (RBC) [Entitic mass] 26.5 pg Critically low 26.7-34.0 [facility] Comment on above: Performed By: #### KACY GODWINRO #### [facility] [address] [place] [address] Dr. Sara Matos MCHC (RBC) [Mass/Vol] 32.7 g/dL Normal 29.9-35.2 [facility] Comment on above: Performed By: #### KACY GODWINRO #### [facility] [address] [place] [address] Dr. Sara Matos MCV (RBC) [Entitic vol] 80.9 fL Critically low 81.0-99.0 [facility] Comment on above: Performed By: #### KACY GODWINRO #### [facility] [address] [place] [address] Dr. Sara Matos MONO # 0.8 103/ul Normal 0.3-0.8 [facility] Comment on above: Performed By: #### KACY GODWINRO #### [facility] [address] [place] [address] Dr. Sara Matos Monocytes/100 WBC (Bld) 6.8 % Normal 1.7-12.0 [facility] Comment on above: Performed By: #### E RUR, UMICRO #### [facility] [address] [place] [address] Dr. Sara Matos NEUT # 7.4 103/ul Critically high 1.4-6.5 [facility] Comment on above: Performed By: #### Sha SINHA UMICRO #### [facility] [address] [place] [address] Dr. Sara Matos Neutrophils/100 WBC (Bld) 66.7 % Normal 43.0-75.0 [facility] Comment on above: Performed By: #### Sha SINHA UMICRO #### [facility] [address] [place] [address] Dr. Sara Matos Platelet mean volume (Bld) [Entitic vol] 11.3 fL Normal 9.5-13.5 [facility] Comment on above: Performed By: #### Sha SINHA UMICRO #### [facility] [address] [place] [address] Dr. Sara Matos PLT 281 103/ul Normal 150-450 [facility] Comment on above: Performed By: #### Sha SINHA UMICRO #### [facility] [address] [place] [address] Dr. Sara Matos RBC 4.87 106/ul Normal 4.20-5.40 [facility] Comment on above: Performed By: #### Sha SINHA UMICRO #### [facility] [address] [place] [address] Dr. Sara Matos WBC 11.1 103/ul Critically high 4.0-11.0 [facility] Comment on above: Performed By: #### Sha SINHA UMICRO #### [facility] [address] [place] [address] Dr. Sara Matos MAGNESIUMon 01-24-2022 Magnesium [Mass/Vol] 2.0 mg/dL Normal 1.8-2.4 [facility] Comment on above: Performed By: #### Sah SINHA UMICRO #### [facility] [address] [place] [address] Dr. Sara Matos T3 UPTAKEon 01-24-2022 T3U 37.0 % Normal 30.0-39.0 [facility] Comment on above: Performed By: #### T 3UP #### [facility] [address] [place] [address] Dr. Sara Matos T4on 01-24-2022 T4 [Mass/Vol] 11.60 ug/dL Normal 4.80-13.90 [facility] Comment on above: Performed By: #### T 4 #### [facility] [address] [place] [address] Dr. Sara Matos TSHon 01-24-2022 TSH 0.547 uIU/mL Normal 0.358-3.740 [facility] Comment on above: Performed By: #### T SH #### [facility] [address] [place] [address] Dr. Sara Matos TSH RANGE SEE BELOW Normal [facility] Comment on above: Result Comment: <0.3 4 UIU/ml HYPERTHYROID 0.34-5.60 UIU/ml EUTHYROID >5.60 UIU/ml HYPOTHYROID Performed By: #### T SH #### [facility] [address] [place] [address] Dr. Sara Matos CBC AUTO DIFFon 01-19-2022 BASO # 0.0 103/ul Normal 0.0-0.1 [facility] Comment on above: Performed By: #### T SH #### [facility] [address] [place] [address] Dr. Sara Matos Basophils/100 WBC (Bld) 0.5 % Normal 0.2-2.0 [facility] Comment on above: Performed By: #### T SH #### [facility] [address] [place] [address] Dr. Sara Matos EO # 0.1 103/ul Normal 0.0-0.7 [facility] Comment on above: Performed By: #### T SH #### [facility] [address] [place] [address] Dr. Sara Matos Eosinophils/100 WBC (Bld) 1.1 % Normal 0.9-7.0 [facility] Comment on above: Performed By: #### T SH #### [facility] [address] [place] [address] Dr. Sara Matos Erythrocyte distribution width (RBC) [Ratio] 13.6 % Normal 11.0-15.0 [facility] Comment on above: Performed By: #### T SH #### [facility] [address] [place] [address] Dr. Sara Matos Hematocrit (Bld) [Volume fraction] 38.4 % Normal 36.0-48.0 [facility] Comment on above: Performed By: #### T SH #### [facility] [address] [place] [address] Dr. Sara Matos Hemoglobin (Bld) [Mass/Vol] 12.5 g/dL Normal 12.0-16.0 [facility] Comment on above: Performed By: #### T SH #### [facility] [address] [place] [address] Dr. Sara Matos IG # 0.02 10e3/ul Normal 0.00-0.03 [facility] Comment on above: Performed By: #### T SH #### [facility] [address] [place] [address] Dr. Sara Matos IG % 0.2 % Normal 0.0-0.5 [facility] Comment on above: Performed By: #### T SH #### [facility] [address] [place] [address] Dr. Sara Matos LYMPH # 2.5 103/ul Normal 1.2-3.8 [facility] Comment on above: Performed By: #### T SH #### [facility] [address] [place] [address] Dr. Sara Matos Lymphocytes/100 WBC (Bld) 28.9 % Normal 20.5-60.0 [facility] Comment on above: Performed By: #### T SH #### [facility] [address] [place] [address] Dr. Sara Matos MANUAL DIFF REQ NO Normal [facility] Comment on above: Performed By: #### T SH #### [facility] [address] [place] [address] Dr. Sara Matos MCH (RBC) [Entitic mass] 26.9 pg Normal 26.7-34.0 [facility] Comment on above: Performed By: #### T SH #### [facility] [address] [place] [address] Dr. Sara Matos MCHC (RBC) [Mass/Vol] 32.6 g/dL Normal 29.9-35.2 [facility] Comment on above: Performed By: #### T SH #### [facility] [address] [place] [address] Dr. Sara Matos MCV (RBC) [Entitic vol] 82.6 fL Normal 81.0-99.0 [facility] Comment on above: Performed By: #### T SH #### [facility] [address] [place] [address] Dr. Sara Matos MONO # 0.7 103/ul Normal 0.3-0.8 [facility] Comment on above: Performed By: #### T SH #### [facility] [address] [place] [address] Dr. Sara Matos Monocytes/100 WBC (Bld) 7.5 % Normal 1.7-12.0 [facility] Comment on above: Performed By: #### T SH #### [facility] [address] [place] [address] Dr. Sara Matos NEUT # 5.4 103/ul Normal 1.4-6.5 [facility] Comment on above: Performed By: #### T SH #### [facility] [address] [place] [address] Dr. Sara Matos Neutrophils/100 WBC (Bld) 61.8 % Normal 43.0-75.0 [facility] Comment on above: Performed By: #### T SH #### [facility] [address] [place] [address] Dr. Sara Matos Platelet mean volume (Bld) [Entitic vol] 11.4 fL Normal 9.5-13.5 [facility] Comment on above: Performed By: #### T SH #### [facility] [address] [place] [address] Dr. Sara Matos PLT 233 103/ul Normal 150-450 [facility] Comment on above: Performed By: #### T SH #### [facility] [address] [place] [address] Dr. Sara Matos RBC 4.65 106/ul Normal 4.20-5.40 [facility] Comment on above: Performed By: #### T SH #### [facility] [address] [place] [address] Dr. Sara Matos WBC 8.8 103/ul Normal 4.0-11.0 [facility] Comment on above: Performed By: #### T SH #### [facility] [address] [place] [address] Dr. Sara Matos PROF 14(COMP METB)on 022 Albumin [Mass/Vol] 3.8 g/dL Normal 3.4-5.[address] [facility] Comment on above: Performed By: #### KACY GODWINRO #### [facility] [address] [place] [address] Dr. Sara Matos Albumin/Globulin [Mass ratio] 1.0 {ratio} Normal [facility] Comment on above: Performed By: #### KACY GODWINRO #### [facility] [address] [place] [address] Dr. Sara Matos ALP [Catalytic activity/Vol] 65 U/L Normal 46-116 [facility] Comment on above: Performed By: #### KACY GDOWINRO #### [facility] [address] [place] [address] Dr. Sara Matso ALT [Catalytic activity/Vol] 52 U/L Normal 14-59 [facility] Comment on above: Performed By: #### Sha SINHA UMICRO #### [facility] [address] [place] [address] Dr. Sara Matos Anion gap [Moles/Vol] 12.0 mmol/L Normal [facility] Comment on above: Performed By: #### FLORENTINO GODWINICRO #### [facility] [address] [place] [address] Dr. Sara Matos AST [Catalytic activity/Vol] 28 U/L Normal 15-37 [facility] Comment on above: Performed By: #### FLORENTINO GODWINICRO #### [facility] [address] [place] [address] Dr. Saar Matos Bilirubin [Mass/Vol] 0.4 mg/dL Normal 0.2-1.0 [facility] Comment on above: Performed By: #### Sha SINHA UMICRO #### [facility] [address] [place] [address] Dr. Sara Matos Calcium [Mass/Vol] 9.5 mg/dL Normal 8.5-10.[address] [facility] Comment on above: Performed By: #### Sha SINHA UMICRO #### [facility] [address] [place] [address] Dr. Sara aMtos Chloride [Moles/Vol] 103 mmol/L Normal 98-107 [facility] Comment on above: Performed By: #### Sha SINHA UMICRO #### [facility] [address] [place] [address] Dr. Sara Matos CO2 [Moles/Vol] 26.7 mmol/L Normal 21.0-32.0 [facility] Comment on above: Performed By: #### Sha SINHA UMICRO #### [facility] [address] [place] [address] Dr. Sara Matos Creatinine [Mass/Vol] 0.69 mg/dL Normal 0.55-1.02 [facility] Comment on above: Performed By: #### Sha SINHA UMICRO #### [facility] [address] [place] [address] Dr. Sara Matos EGFR-AF EMIRATI >60 Normal >=60 [facility] Comment on above: Performed By: #### Sha SINHA UMICRO #### [facility] [address] [place] [address] Dr. Sara Matos EGFR-NON AF EMIRATI >60 Normal >=60 [facility] Comment on above: Performed By: #### JAIME GODWIN #### [facility] [address] [place] [address] Dr. Sara Matos Globulin (S) [Mass/Vol] 3.9 g/dL Normal [facility] Comment on above: Performed By: #### JAIME GODWIN #### [facility] [address] [place] [address] Dr. Sara Matos Glucose [Mass/Vol] 84 mg/dL Normal 74-106 [facility] Comment on above: Performed By: #### JAIME GODWIN #### [facility] [address] [place] [address] Dr. Sara Matos Potassium [Moles/Vol] 3.7 mmol/L Normal 3.5-5.1 [facility] Comment on above: Performed By: #### JAIME GODWIN #### [facility] [address] [place] [address] Dr. Sara Matos Protein [Mass/Vol] 7.7 g/dL Normal 6.4-8.2 [facility] Comment on above: Performed By: #### JAIME GODWIN #### [facility] [address] [place] [address] Dr. Sara Matos Sodium [Moles/Vol] 138 mmol/L Normal 136-145 [facility] Comment on above: Performed By: #### JAIME GODWIN #### [facility] [address] [place] [address] Dr. Sara Matos Urea nitrogen [Mass/Vol] 8.0 mg/dL Normal 7.0-18.0 [facility] Comment on above: Performed By: #### JAIME GODWIN #### [facility] [address] [place] [address] Dr. Sara Matos Urea nitrogen/Creatinine [Mass ratio] 11.6 mg/mg Normal [facility] Comment on above: Performed By: #### JAIME GODWIN #### [facility] [address] [place] [address] Dr. Sara Matos TROPONIN, HIGH SENSITIVITYon 01-19-2022 HSTROP <4.0 Normal 4.0-51.3 [facility] Comment on above: Result Comment: CUT- OFF POINTS HAVE BEEN ESTABLISHED BASED ON THE FOURTH UNIVERSAL DEFINITIONS OF MYOCARDIAL INFARCTION. THE UPPER REFERENCE LIMIT (URL) OF TROPONIN, DEFINED THE 99TH PERCENTILE OF cTnI DISTRIBUTION IN A REFERENCE POPULATION, HAS BEEN CONFIRMED THE DECISION THRESHOLD FOR NE DIAGNOSIS. Performed By: #### JAIME GODWIN #### [facility] [address] [place], [place] [address] Dr. Sara Matos XR CHEST 1 Von [...] by: DUSTY BUSCH Date: 2022-01-19 21:50 Normal [facility] US GUY DOP LEG LTon 12-26-19 [...] DE LA O Date: 2021-12-25 12:20 Normal [facility] XR CHEST 1 Von 12-25-2021 XR [...] by: PREM GUERRA Date: 2021-12-25 11:45 Normal [facility] U24 Proteinon 09-04-2017 PROTEIN:MCNC:24H:UR INE:QN: 102 mg/24hr Normal 28-141 [facility] Comment on above: Performed By: #### 2 [id number], [id number] ####[facility] [address] [place] [address] ALBUMIN/PROTEIN.TOT AL:MFR:PT:URINE:QN: ELECTROPHORESIS 8.0 mg/dL Invalid Interpretation Code [facility] Comment on above: Result Comment: The reference range and other method performance specifications have not been established for this test; results should be integrated into the clinical context for interpretation. Performed By: #### 2 [id number], [id number] ####[address] [address] U24 Total Volon 09-04-2017 Hrs Glenna 24 hour(s) Invalid Interpretation Code [facility] Comment on above: Order Comment: Order added by Discern Expert Performed By: #### 2 [id number], [id number] ####[id number] [place] [address] SPECIMEN VOLUME:VOL:XXX:URIN E:QN: 1280 mL Invalid Interpretation Code [facility] Comment on above: Order Comment: Order added by Discern Expert Performed By: #### 2 [id number], [id number] ####[address] [address] Vital Signs Date Time Vital Sign Value Performing Clinician Yani frye 08-28-2024 15:03-0500 Body mass index (BMI) [Ratio] 45.14 kg/m2 Isabela HENNESSY Work Phone: [facility] 08-28-2024 15:03-0500 Body weight 119.3 kg Isabela HENNESSY Work Phone: [facility] 08-28-2024 15:03-0500 Diastolic blood pressure 84 mm[Hg] Isabela Dexter PA Work Phone: [facility] 08-28-2024 15:03-0500 Systolic blood pressure 132 mm[Hg] Isabela Spencer PA Work Phone: [facility] 08-07-2024 11:22-0500 Body mass index (BMI) [Ratio] 48.41 kg/m2 Jonas Jose DO Work Phone: [facility] 08-07-2024 11:22-0500 Body weight 127.91 kg Jonas Jose DO Work Phone: [facility] 08-07-2024 11:22-0500 Diastolic blood pressure 64 mm[Hg] Jonas Jose DO Work Phone: [facility] 08-07-2024 11:22-0500 Systolic blood pressure 104 mm[Hg] Jonas Jose DO Work Phone: [facility] 08-01-2024 10:57-0500 Body mass index (BMI) [Ratio] 47.55 kg/m2 Isabela Spencer PA Work Phone: [facility] 08-01-2024 10:57-0500 Body weight 125.65 kg Isabela Spencer PA Work Phone: [facility] 08-01-2024 10:57-0500 Diastolic blood pressure 70 mm[Hg] Isabela Dexter PA Work Phone: [facility] 08-01-2024 10:57-0500 Systolic blood pressure 120 mm[Hg] Isabela Dexter PA Work Phone: [facility] 07-18-2024 11:15-0500 Body mass index (BMI) [Ratio] 46.93 kg/m2 Isabela Dexter PA Work Phone: [facility] 07-18-2024 11:15-0500 Body weight 124.01 kg Isabela Dexter PA Work Phone: [facility] 07-18-2024 11:15-0500 Diastolic blood pressure 80 mm[Hg] Isabela Dexter PA Work Phone: [facility] 07-18-2024 11:15-0500 Systolic blood pressure 120 mm[Hg] Isabela Palmer PA Work Phone: [facility] 06-27-2024 10:38-0500 Body mass index (BMI) [Ratio] 47.1 kg/m2 Jonas Jose DO Work Phone: [facility] 06-27-2024 10:38-0500 Body weight 124.47 kg Jonas Jose DO Work Phone: [facility] 06-27-2024 10:38-0500 Diastolic blood pressure 72 mm[Hg] Jonas Jose DO Work Phone: [facility] 06-27-2024 10:38-0500 Systolic blood pressure 118 mm[Hg] Jonas Jose DO Work Phone: [facility] 05-15-2024 11:15-0400 Body mass index (BMI) [Ratio] 46.35 kg/m2 Isabela HENNESSY Work Phone: [facility] 05-15-2024 11:15-0400 Body weight 122.47 kg Isabela Palmer PA Work Phone: [facility] 05-15-2024 11:15-0400 Diastolic blood pressure 80 mm[Hg] Isabela Palmer PA Work Phone: [facility] 05-15-2024 11:15-0400 Systolic blood pressure 114 mm[Hg] Isabela Palmer PA Work Phone: [facility] 04-11-2024 11:55-0400 Body mass index (BMI) [Ratio] 45.8 kg/m2 Jonas Jose DO Work Phone: [facility] 04-11-2024 11:55-0400 Body weight 121.02 kg Jonas Jose DO Work Phone: [facility] 04-11-2024 11:55-0400 Diastolic blood pressure 80 mm[Hg] Jonas Jose DO Work Phone: [facility] 04-11-2024 11:55-0400 Systolic blood pressure 118 mm[Hg] [...] 05-15-2024 Bamboo flowsheet Isabela HENNESSY Work Phone: [facility] Start: 05-15-2024 End: 05-15-2024 Bamboo flowsheet Isabela HENNESSY Work Phone: [facility] Start: 05-15-2024 End: 05-15-2024 ambulatory ISABELA PALMER Not Available Start: 05-15-2024 End: 05-15-2024 Office outpatient visit 15 minutes Isabela HENNESSY Work Phone: [facility] Comment on above: 26 weeks gestation o f (Primary Dx); Second trimester ; with normal glucose tolerance test (GTT); Diabetes mellitus screening Start: 04-11-2024 End: 04-11-2024 Clinisync Result Encounter Jonas Jose DO Work Phone: [facility] External Department Unsolicited Start: 04-11-2024 End: 04-12-2024 Clinisync Result Encounter Jonas Jose DO Work Phone: [facility] External Department Unsolicited Start: 04-11-2024 End: 04-12-2024 External Result Encounter Jonas Jose DO Work Phone: [facility] External Department Unsolicited Start: 04-11-2024 End: 04-11-2024 ambulatory JONAS JOSE Not Available Start: 04-11-2024 End: 04-11-2024 Patient encounter procedure Jonas Jose DO Work Phone: [facility] Start: 04-11-2024 End: 04-11-2024 Periodic preventive med est patient 18-39 yrs Jonas Jose DO Work Phone: [facility] Comment on above: 21 weeks [...] Start: 09-04-2017 End: 09-05-2017 Ambulatory Jonah York Facility:[facility] Procedures Date Procedure Procedure Detail Performing Clinician [...] PM EST Visit [facility] [address] [facility] [place] [phone] Isabela Palmer PA [address] [place] [address] [facility] Start: 08-07-2024 End: 08-07-2024 Patient encounter procedure [facility] Comment on above: Arrived Start: 08-01-2024 End: 08-01-2024 Patient encounter procedure 08/01/2024 10:40 AM EST Routine [facility] [address] [facility] [place] [phone] Isabela Palmer PA [address] [place] [address] Arrived [facility] Comment on above: Arrived Start: 07-26-2024 End: 07-26-2024 Patient encounter procedure 07/26/2024 2:50 PM EST Routine [facility] [address] [place] [phone] Isabela aPlmer PA [address] [facility] [place] [address] [facility] Start: 07-18-2024 End: 07-18-2025 [...] AM EST Routine [facility] [address] [facility] [place] [phone] Isabela Palmer, PA [address] [facility] [place] [address] Arrived [facility] Comment on above: Arrived Start: 07-11-2024 End: 07-11-2024 Patient encounter procedure 07/11/2024 10:10 AM EST Routine [facility] [address] [place] [phone] Isabela Palmer, PA [address] [place] [address] [facility] Start: 07-11-2024 End: 07-11-2024 Professional / ancillary services management 07/11/2024 9:30 AM EST Ancillary Procedure [facility] [address] [place] [phone] [facility] Start: 06-27-2024 End: 06-27-2025 [...] mellitus screening Expected: 05/15/2024 (Approximate), Expires: 05/15/2025 [facility] Work Phone: Comment on above: Expected: 05/15/2024 (Approximate), Expires: 05/15/2025 Start: 05-15-2024 End: 05-15-2025 Measurement of glucose 1 hour after glucose challenge for glucose tolerance test Glucose tolerance, 1 hour Lab Routine Diabetes mellitus screening Expected: 05/15/2024 (Approximate), Expires: 05/15/2025 [facility] Comment on above: Expected: 05/15/2024 (Approximate), Expires: 05/15/2025 Start: 05-15-2024 End: 05-15-2024 Patient encounter procedure 05/15/2024 10:40 AM EDT Routine [facility] [address] [place] [phone] Isabela Palmer PA [address] [place] [address] Arrived [facility] Comment on above: Arrived Start: 05-09-2024 End: 05-09-2024 Patient encounter procedure 05/09/2024 2:30 PM EDT Routine [facility] [address] [place] [phone] Isabela Palmer, PA [address] [place] [address] [facility] Start: 04-18-2024 End: 04-18-2024 Professional / ancillary services management 04/18/2024 11:00 AM EDT Ancillary Procedure [facility] [address] [facility] [phone] [facility] Start: 04-16-2024 Influenza vaccination Influenza Vacc ine (#1) [facility] Start: 04-11-2024 End: 06-11-2024 Alpha fetoprotein, maternal Alpha fetoprotein, maternal Lab Routine 21 weeks gestation of Expected: 04/11/2024 (Approximate), Expires: 06/11/2024 [facility] Comment on above: Expected: 04/11/2024 (Approximate), Expires: 06/11/2024 Start: 04-11-2024 End: 04-11-2025 US for US OB ANATOMY SINGLE W US OB CERVICAL LENGTH Imaging Routine Screening, , for anatomic survey Expected: 04/11/2024 (Approximate), Expires: 04/11/2025 [facility] Comment on above: Expected: 04/11/2024 (Approximate), Expires: 04/11/2025 Start: 04-11-2024 End: 04-11-2024 Patient encounter procedure 04/11/2024 11:30 AM EDT Routine [facility] [address] [facility] [place] [phone] Jonas Garcia DO [address] [facility] [place] [address] [facility] CHLAMYDIA TRACHOMATI S (GENITO/STI) CHLAMYDIA TRACHOMATIS (GENITO/STI) Lab Routine Exposure to STD Ordered: 04/11/2024 [facility] Comment on above: Ordered: 04/11/2024 Cytology Cervical or vaginal smear or scraping study Pap Smear Pathology and Cytology Routine Well woman exam with routine gynecological exam Ordered: 04/11/2024 [facility] Comment on above: Ordered: 04/11/2024 Hemoglobin A1c/Hemoglobin.total in Blood Hemoglobin A1c Lab Routine 35 weeks gestation of Third trimester 32 weeks gestation of Ordered: 07/18/2024 [facility] Comment on above: Ordered: 07/18/2024 Neisseria gonorrhoea e DNA [Presence] in Unspecified specimen by DEENA with probe detection Neisseria gonorrhea DNA probe, direct Lab Routine Exposure to STD Ordered: 04/11/2024 [facility] Comment on above: Ordered: 04/11/2024 SURESWAB(R) ADVANCED VAGINITIS PLUS, TMA SURESWAB(R) ADVANCED VAGINITIS PLUS, TMA Pathology and Cytology Routine Vaginal discharge Ordered: 04/11/2024 [facility] Work Phone: Comment on above: Ordered: 04/11/2024 Payers Date Payer Category Payer Medicaid [employer] [place] [employer] [id number] 2018-Present [address] [place] [id number] 2018 Medicaid (Managed Care) [employer] [id number] 1995 Unknown [id number] 2.16840.1.253077.3.579.2. 593 1995 Unknown [id number] 2.16.840.1.132586.3.579.2. 593 1995 Unknown [id number] 2.16.840.1.317518.3.579.2. 593 1995 Unknown [id number] 2.16.840.1.136672.3.579.2. 593 1995 Unknown [id number] 2.16.840.1.377244.3.579.2. 593 1995 Unknown [id number] 2.16.840.1.033335.3.579.2. 593 1995 Unknown [id number] 2.16.840.1.917594.3.579.2. 593 1995 Unknown [id number] 2.16.840.1.625526.3.579.2. 593 1995 Unknown [id number] 2.16.840.1.984215.3.579.2. 593 1995 Unknown [id number] 2.16.840.1.896872.3.579.2. 593 1995 Unknown [id number] 2.16.840.1.270086.3.579.2. 593 1995 Unknown [id number] 2.16.840.1.077922.3.579.2. 593 1995 Unknown [id number] 2.16.840.1.343437.3.579.2. 593 1995 Unknown [id number] 2.16.840.1.184428.3.579.2. 593 1995 Unknown [id number] 2.16.840.1.531259.3.579.2. 593 1995 Unknown [id number] 2.16.840.1.120378.3.579.2. 1259 1995 Unknown [id number] 2.16.840.1.886564.3.579.2. 1259 1995 Unknown [id number] 2.16.840.1.336292.3.579.2. 1259 1995 Unknown [id number] 2.16.840.1.337319.3.579.2. 1259 1995 Unknown [id number] 2.16.840.1.675243.3.579.2. 1259 1995 Unknown [id number] 2.16.840.1.624250.3.579.2. 1259 1995 Unknown [id number] 2.16.840.1.198284.3.579.2. 1259 1995 Unknown [id number] 2.16.840.1.235905.3.579.2. 1259 1959 Self-pay [id number] 1959 Unknown [id number] Social History Date Type Detail Facility Start: [...] iron polysaccharides (PROFE) 391.3 mg, Oral, Daily vqrxflqxamydu-LS-YLXN (Tylenol Cold Multi-Symptom) 5-10-325 mg/15 mL liquid [...] of: MINOO Ramos documented in this encounter [facility] 08-07-2024 History of Presen t illness Narrative Reason for Appointment: Patient ID: Astrid Montauge is a 28 y.o. female who presents for No chief complaint on file. Patient presents today for Return OB appointment. MEDICATIONS Current Outpatient Medications Medication Instructions amoxicillin (AMOXIL) 875 mg, 2 times daily zvhrbvbzaccrl-GL-HJJP (Tylenol Cold Multi-Symptom) 5-10-325 mg/15 mL liquid [...] nursing note reviewed. Exam conducted with a engineering group manager present. Vitals: Estimated body mass index is [...] Jonas Garcia DO documented in this encounter [facility] 08-01-2024 History of Presen t illness Narrative Reason for Appointment: Patient ID: Astrid Montague is a 28 y.o. female who presents for Routine Visit Patient presents today for Return OB appointment. MEDICATIONS Current Outpatient Medications Medication Instructions amoxicillin (AMOXIL) 875 mg, 2 times daily xkwcypxcfispn-TI-YEBI (Tylenol Cold Multi-Symptom) 5-10-325 mg/15 mL liquid [...] of: MINOO Ramos documented in this encounter [facility] 07-18-2024 History of Presen t illness Narrative Reason for Appointment: Patient ID: Astrid Montague is a 28 y.o. female who presents for Routine Visit Patient presents today for Return OB appointment. MEDICATIONS Current Outpatient Medications Medication Instructions amoxicillin (AMOXIL) 875 mg, 2 times daily mkajhosguewir-CI-XPDN (Tylenol Cold Multi-Symptom) 5-10-325 mg/15 mL liquid [...] of: MINOO Ramos documented in this encounter [facility] 06-27-2024 History of Presen t illness Narrative Reason for Appointment: Patient ID: Astrid Montague is a 28 y.o. female who presents for Routine Visit Patient presents today for Return OB appointment. MEDICATIONS Current Outpatient Medications Medication Instructions btlbajlpfnita-TG-ZOQA (Tylenol Cold Multi-Symptom) 5-10-325 mg/15 mL liquid [...] nursing note reviewed. Exam conducted with a engineering group manager present. Vitals: Estimated body mass index is [...] Jonas Garcia DO documented in this encounter [facility] 05-15-2024 History of Presen t illness Narrative Reason for Appointment: Patient ID: Astrid Montague is a 28 y.o. female who presents for Routine Visit Patient presents today for Return OB appointment. MEDICATIONS Current Outpatient Medications Medication Instructions evxrhyqnllvdl-VB-EECX (Tylenol Cold Multi-Symptom) 5-10-325 mg/15 mL liquid [...] of: MINOO Ramos documented in this encounter [facility] 04-11-2024 History of Presen t illness Narrative Reason for Appointment: Patient ID: Astrid Montague is a 28 y.o. female who presents for No chief complaint on file. Patient presents today for Annual Exam. and Return OB appointment. MEDICATIONS Current Outpatient Medications Medication Instructions uxjymcrcrltgk-DJ-VFMQ (Tylenol Cold Multi-Symptom) 5-10-325 mg/15 mL liquid [...] nursing note reviewed. Exam conducted with a engineering group manager present. Vitals: Estimated body mass index is [...] or undercooked meat, and stay away from [facility]. Patient has been consulted regarding any [...] section and content) DATE CREATED AUTHOR 02/04/2018 [facility] DATE CREATED AUTHOR AUTHOR'S ORGANIZ ATION 04/25/2022 [facility] DATE CREATED AUTHOR AUTHOR'S ORGANIZ ATION 12/13/2022 [facility] DATE CREATED AUTHOR AUTHOR'S ORGANIZ ATION 08/31/2024 [facility] d[facility] Specialists EPIC Reason for Visit [...] BE BASED ON THE PRIMARY CLINICAL RECORDS. [facility]. provides no warranty or guarantee of the accuracy or completeness of information in this document.
== END 2025-03-04 16:18 | disposition home or self-care (01) ==
LOC: ER 16:48
PROVIDERS: Emergency Provider Emergency Medicine; PCP Nurse Practitioner Family
DX: M79.662 Pain in left lower leg (principal); Z86.718 Personal history of other venous thrombosis and embolism
CPT/HCPCS: 99281

== ENCOUNTER 2025-03-07 17:27 | Outpatient (OUT) | payer OTHER, SELFPAY ==
--- OUTSIDE RECORDS SUMMARY | 2025-03-06 03:59 | XMS_ITS ---
Author Organization [facility] in [place] Address [address] [place] [address] Care Team Providers Care Cloth Finishing Range Operator Chief Name Role Phone Karen Millan Primary Care Provider REASON FOR VISIT ER f/u Encounters Encounter Location Date Provider Diagnosis [facility] [address] [place] [address] 03/06/2025 Karen Millan Plan Of Treatment No Information Progress Notes * Astrid BRAXTON CDOB:[birth year] (29 yo F)Acc No.[id number]:03/06/2025 UNLOCKED PROGRESS NOTE Patient: Ti JOHNTCAstrid :1995 A ge:29 Y S ex:Female Address:[address] [place], [address] * * Date:
--- OUTSIDE RECORDS SUMMARY | 2025-03-07 17:29 | XMS_ITS | Encounter Summary ---
Author Organization [facility] Address [address] [place] [address] Care Team Providers Care Child Care Director Name Role Phone Unavailable Primary Care Provider Unavailabl e Encounter Details Date Type Department Care Team (Late st Contact Info) Description 07/18/2024 [facility] [address] [facility] [address] Sukhwinder Garcia, DO [address], [place] [id number] Social History Tobacco Use Types Packs/Day Years Used Date Smoking Tobacco: Never Comments Yes Sex and Gender Information Value Date Recorded Sex Assigned at Not on file Legal Sex Female 8:35 PM EDT Gender Identity Not on file Sexual Orientation Not on file documented as of this encounter Plan of Treatment Not on file documented as of this encounter Goals Goal Patient Goal Type Associated Problems Recent Progress Patient-Stated? Author Reminders Care Plan OB Reminders No Open Scheduling, Background documented as of this encounter Visit Diagnoses Not on filedocumented in this encounter Additional Health Concerns Active Problems Noted Date Diagnosed Date OB Reminders 04/11/2024 documented as of this encounter
--- OUTSIDE RECORDS SUMMARY | 2025-03-07 17:29 | XMS_ITS | Encounter Summary ---
Author Organization [facility] Address [address] [place] [address] Care Team Providers Care Turntable Operator Name Role Phone Unavailable Primary Care Provider Unavailabl e Encounter Details Date Type Department Care Team (Late st Contact Info) Description 02/25/2023 Abstract [facility] OB [address] [facility] [place] [address] Sukhwinder Garcia, DO [address] [facility] [address] [place], [facility] Social History Tobacco Use Types Packs/Day Years Used Date Smoking Tobacco: Never Comments Yes Sex and Gender Information Value Date Recorded Sex Assigned at Not on file Legal Sex Female 8:35 PM EDT Gender Identity Not on file Sexual Orientation Not on file COVID-19 Exposure Response Date Recorded In the last 10 days, have yo u been in contact with someone who was confirmed or suspected to have Coronavirus/COVID-19? No / Unsure 02/22/2023 9:29 AM EDT documented as of this encounter Plan of Treatment Not on file documented as of this encounter Visit Diagnoses Not on filedocumented in this encounter
--- OUTSIDE RECORDS SUMMARY | 2025-03-07 17:29 | XMS_ITS | Encounter Summary ---
Author Organization [facility] [address] [place] [address] Care Team Providers Care Sheet Sorter Name Role Phone Unavailable Primary Care Provider Unavailabl e Encounter Details Date Type Department Care Team (Late st Contact Info) Description 01/24/2023 Abstract [facility] BCP OB [address] [facility] [address] Isabela Patel PA [address] [facility] [address] [place], [facility]11 Social History Tobacco Use Types Packs/Day Years Used Date Smoking Tobacco: Never Tobacco Cessation:Counseling Given: Not Answered Comments Yes Sex and Gender Information Value Date Recorded Sex Assigned at Not on file Legal Sex Female 8:35 PM EDT Gender Identity Not on file Sexual Orientation Not on file COVID-19 Exposure Response Date Recorded In the last 10 days, have yo u been in contact with someone who was confirmed or suspected to have Coronavirus/COVID-19? No / Unsure 01/26/2023 9:16 AM EDT documented as of this encounter Plan of Treatment Not on file documented as of this encounter Visit Diagnoses Not on filedocumented in this encounter
--- OUTSIDE RECORDS SUMMARY | 2025-03-07 17:29 | XMS_ITS | Encounter Summary ---
Author Organization [facility] Address [address] [place] [address] Care Team Providers Care Single Spindle Screw Machine Operator Name Role Phone Unavailable Primary Care Provider Unavailabl e Encounter Details Date Type Department Care Team (Late st Contact Info) Description 08/10/2024 Abstract [facility] [address] [facility] [place] [address] Sukhwinder Garcia, DO [address], [facility]11 Social History Tobacco Use Types Packs/Day Years [...]
--- OUTSIDE RECORDS SUMMARY | 2025-03-07 17:29 | XMS_ITS | Clinical Summary ---
Author Organization [facility] Address [address] [place] [address] Care Team Providers Care Wire Bound Box Machine Helper Name Role Phone Jadon Cedillo MD Primary Care Provider Allergies No known active allergies Medications No known medications Active Problems Problem Noted Date Diagnosed Date Bradycardia 04/25/2022 Palpitations 04/25/2022 Fatigue 04/25/2022 POTS (postural orthostatic tachycardia syndrome) 04/25/2022 Syncope and collapse 04/25/2022 Chest pain 04/22/2022 Dyspnea 04/22/2022 Lightheadedness 02/24/2022 Family History Medical History Relation Name Comments Coronary artery disease Maternal Grandmother Heart attack Maternal Grandmother Relation Name Status Comments Maternal Grandmother Paternal Grandmother Social History Tobacco Use Types Packs/Day Years Used Date Smoking Tobacco: Never Smokeless Tobacco: Never Tobacco Cessation:Counseling Given: Not Answered Alcohol Use Standard Drinks/Week Comments Yes 0 (1 standard drink = 0.6 oz pur e alcohol) occasional [place] Safety & Environment Answer Date Rec orded Fear of Current or Ex-Partner Not on file Emotionally Abused Not on file 10/07/2023 Physically Abused Not on file 10/07/2023 Sexually Abused Not on file 10/07/2023 Physically or Sexually Abused Not on file Comments Unknown Sex and Gender Information Value Date Recorded Sex Assigned at Not on file Legal Sex Female 2:00 PM EDT Gender Identity Not on file Sexual Orientation Not on file Last Filed Vital Signs Vital Sign Reading Time Taken Comments Blood Pressure 128/89 03/31/2022 12:04 PM EDT Pulse - - Temperature - - Respiratory Rate - - Oxygen Saturation 98% 03/31/2022 12:01 PM EDT Inhaled Oxygen Concentration - - Weight 96.2 kg (212 lb) 03/31/2022 11:53 AM EDT Height 162.6 cm (5' 4 ) 03/31/2022 11:53 AM EDT Body Mass Index 36.39 03/31/2022 11:53 AM EDT Plan of Treatment Not on file Care Teams Wire Bound Box Machine Helper Relationship Specialty Start Date End Date Jadon Cedillo MD [address] [place] [address] PCP - General 04/25/22
--- OUTSIDE RECORDS SUMMARY | 2025-03-07 17:29 | XMS_ITS | Encounter Summary ---
Author Organization [facility] Address [address] [place] [address] Care Team Providers Care Surgical Asst Name Role Phone Unavailable Primary Care Provider Unavailabl e Encounter Details Date Type Department Care Team (Late st Contact Info) Description 02/17/2023 Abstract [facility] OB [address] [facility] [place] [address] Sukhwinder Garcia, DO [address] [facility] [address] [place], [facility]11 Social History Tobacco Use Types Packs/Day [...]
--- OUTSIDE RECORDS SUMMARY | 2025-03-07 17:29 | XMS_ITS | Encounter Summary ---
Author Organization [facility] Address [address] [place] [address] Care Team Providers Care Rn Care Manager Name Role Phone Unavailable Primary Care Provider Unavailabl e Encounter Details Date Type Department Care Team (Late st Contact Info) Description 03/10/2024 Abstract [facility] OB [address] [facility] [place] [place] [address] Sukhwinder Garcia, DO [address], [facility]11 Social History Tobacco Use Types Packs/Day Years [...]
--- OUTSIDE RECORDS SUMMARY | 2025-03-07 17:29 | XMS_ITS | Encounter Summary ---
Author Organization [facility] Address [address] [place] [address] Care Team Providers Care Sales Account Representative Name Role Phone Unavailable Primary Care Provider Unavailabl e Encounter Details Date Type Department Care Team (Late st Contact Info) Description 01/28/2023 Abstract [facility] OB [address] [facility] [place] [address] Sukhwinder Garcia, DO [address] [facility] [address] [place], [facility]11 Social History Tobacco Use Types Packs/Day Years [...]
--- OUTSIDE RECORDS SUMMARY | 2025-03-07 17:29 | XMS_ITS | Encounter Summary ---
Author Organization [facility] Address [address] [place] [address] Care Team Providers Care Loin Trimmer Name Role Phone Unavailable Primary Care Provider Unavailabl e Encounter Details Date Type Department Care Team (Late st Contact Info) Description 02/17/2023 Abstract [facility] OB [address] [facility] [place] [address] Sukhwinder Garcia, DO [address] [facility] [address] [place], [facility]11 Social History Tobacco Use Types Packs/Day Years [...]
--- OUTSIDE RECORDS SUMMARY | 2025-03-07 17:29 | XMS_ITS | Encounter Summary ---
Author Organization [facility] Address [address] [facility] [place] [address] Care Team Providers Care Orthotics Prosthetics Assistant Name Role Phone Unavailable Primary Care Provider Unavailabl e Encounter Details Date Type Department Care Team (Late st Contact Info) Description 07/31/2024 Clinisync Result Encounter [facility] External Department Unsolicited Isabela Palmer PA [address] [facility] [place] [address] Social History Tobacco Use Types Packs/Day Years [...] Scheduling, Background documented as of this encounter Procedures Procedure Name Priority Date/Time Associated Diagnosis Comments US AMNIOTIC FLUID VOLUME 07/31/2024 7:58 AM EST documented in this encounter Results * US AMNIOTIC FLUID VOLUME (07/31/2024 7:58 AM EST) Anatomical Region Laterality Modality Radiographic Tricia ging 07/31/2024 7:58 AM EST Narrative 07/31/2024 8:00 AM EST The [address] [address] Ultrasound Report Signed Patient: ASTRID BRAXTON MR#: [id number] : 1995 Acct:[id number] Age/Sex: 28 / F ADM Date: 07/29/24 Loc: US Attending Dr: Isabela Palmer Ordering Physician: Isabela Palmer Date of Service: 07/29/24 Procedure(s): US OB amniotic fluid vol Accession Number(s): [id number] cc: Isabeal Palmer; CHANNING ELAINE [address] [id number] Patient Name: ASTRID BRAXTON MRN: [facility]:[id number] date: 1995 Sex: F Assigned Patient Location: US Current Patient Location: Accession/Order Number: [id number] Exam Date: 07/29/2024 14:59 Report Date: 07/31/2024 07:58 At the request of: ISABELA PALMER Procedure: US OB amniotic fluid vol EXAMINATION: US OB amniotic fluid vol HISTORY: JE BORDERLINE LOW O28.8 COMPARISON: No relevant comparison available. FINDINGS: position: Cephalic presentation, longitudinal lie Amniotic fluid volume: 9.6 cm, largest fluid pocket 4 cm. Heart rate: 130 bpm Clinical age: 37 weeks 2 days Clinical NATALIA: 08/17/2024 US/US OB amniotic fluid vol IMPRESSION: Amniotic fluid index above the 5th percentile Electronically authenticated by: PREM GUERRA Date: 07/31/2024 07:58 Dictated By: Prem Guerra M.D. Signed By: 07/31/24 0800 DD/ 0758 TD/TT: Screen Printing Equipment Setter: Procedure Note Radiology, Radiologist, MD - 07/31/2024 [place] [address] Ultrasound Report Signed Patient: ASTRID BRAXTON CMR#: [id number] : 1995Acct:[id number] Age/Sex: 28 / FADM Date: 07/29/24 Loc: US Attending Dr: Isabela Palmer Ordering Physician: Isabela Palmer Date of Service: 07/29/24 Procedure(s): US OB amniotic fluid vol Accession Number(s): [id number] cc: CHANNING Keenan [address] [address] Patient Name: ASTRID BRAXTON MRN: [id number] date: 1995 Sex: F Assigned Patient Location: US Current Patient Location: Accession/Order Number: [id number] Exam Date: 07/29/2024 14:59 Report Date: 07/31/2024 07:58 At the request of: ISABELA PALMER Procedure: US OB amniotic fluid vol EXAMINATION: US OB amniotic fluid vol HISTORY: JE BORDERLINE LOW O28.8 COMPARISON: No relevant comparison available. FINDINGS: position: Cephalic presentation, longitudinal lie Amniotic fluid volume: 9.6 cm, largest fluid pocket 4 cm. Heart rate: 130 bpm Clinical age: 37 weeks 2 days Clinical NATALIA: 08/17/2024 US/US OB amniotic fluid vol IMPRESSION: Amniotic fluid index above the 5th percentile Electronically authenticated by: PREM GUERRA Date: 07/31/2024 07:58 Dictated By: Prem Guerra M.D. Signed By:07/31/24 0800 DD/ 0758 TD/TT: Screen Printing Equipment Setter: us Isabela HENNESSY IMG XR PROCEDURES Final Result documented in this encounter Visit Diagnoses Not on filedocumented in this encounter Additional Health Concerns Active Problems Noted Date Diagnosed Date OB Reminders 04/11/2024 documented as of this encounter
--- OUTSIDE RECORDS SUMMARY | 2025-03-07 17:29 | XMS_ITS | Encounter Summary ---
Author Organization [facility] Address [address] [place] [address] Care Team Providers Care Boiler House Inspector Name Role Phone Unavailable Primary Care Provider Unavailabl e Encounter Details Date Type Department Care Team (Late st Contact Info) Description 03/09/2024 Clinisync Result Encounter [facility] External Department Unsolicited Jonas Garcia DO [address] [facility] [address] [place] [place] [address] Social History Tobacco Use Types Packs/Day Years Used Date Smoking Tobacco: Never Comments Yes Sex and Gender Information Value Date Recorded Sex Assigned at Not on file Legal Sex Female 8:35 PM EDT Gender Identity Not on file Sexual Orientation Not on file documented as of this encounter Plan of Treatment Not on file documented as of this encounter Procedures Procedure Name Priority Date/Time Associated Diagnosis Comments US OB G= 14 WEEKS FETUS 03/09/2024 3:19 PM EDT documented in this encounter Results * US OB G= 14 WEEKS FETUS (03/09/2024 3:19 PM EDT) Anatomical Region Laterality Modality Other 03/09/2024 3:19 PM EDT Narrative 03/09/2024 3:22 PM EDT The [address] [address] Ultrasound Report Signed Patient: ASTRID BRAXTON MR#: [id number] : 1995 Acct:[id number] Age/Sex: 28 / F ADM Date: 03/09/24 Loc: [facility] Attending Dr: Jonas Garcia D.O. Ordering Physician: Jonas Garcia D.O. Date of Service: 03/09/24 Procedure(s): US OB >= 14 weeks Fetus Accession Number(s): [id number] cc: CHANNING ELAINE ; oJnas Garcia D.O. [address] [address] Patient Name: ASTRID BRAXTON MRN: [facility]:[id number] date: 1995 Sex: F Assigned Patient Location: [facility] Current Patient Location: [facility] Accession/Order Number: [id number] Exam Date: 03/09/2024 14:01 Report Date: 03/09/2024 15:19 At the request of: JONAS GARCIA Procedure: US OB >= 14 weeks Fetus EXAMINATION: US OB >= 14 weeks Fetus HISTORY: MISSED MENSES COMPARISON: No relevant comparison available. TECHNIQUE: Transabdominal sonographic examination was performed for obstetrical and evaluation. FINDINGS: Number: 1 Heart Rate: 155 H.B. /min Amniotic Fluid Volume: Subjectively normal Placental Location: Anterior BIOMETRY: BPD: 3.2 cm, 16 weeks 0 days, 10% HC: 12.6 cm, 16 weeks 3 days, 12% AC: 10.8 cm, 16 weeks 5 days, 38% FL: 2.1 cm, 16 weeks 1 day, 15% EFW:155 g, 5 ounces, 13%; FL/AC: 19.1 FL/BPD: 64.4 HC/AC: 1.17 GESTATIONAL AGE: Age by EDC: 17 weeks 0 days NATALIA by EDC: 08/17/2024 Age by current US: 16 weeks 2 days NATALIA by current US: 08/22/2024 US/US OB >= 14 weeks Fetus IMPRESSION: Viable mejia intrauterine gestation measuring 16 weeks 2 days *Reference: [facility] Practice Guideline for the performance of Obstetric Ultrasound Examinations, May 16, 2007. Electronically authenticated by: PREM GUERRA Date: 03/09/2024 15:19 Dictated By: Prem Guerra M.D. Signed By: 03/09/24 1522 DD/ 1519 TD/TT: Online Education Manager: Procedure Note Radiology, Radiologist, MD - 03/09/2024 [place] [address] Ultrasound Report Signed Patient: ASTRID BRAXTON CMR#: [id number] : 1995Acct:[id number] Age/Sex: 28 / FADM Date: 03/09/24 Loc: [facility] Attending Dr: Jonas Garcia D.O. Ordering Physician: Jonas Garcia D.O. Date of Service: 03/09/24 Procedure(s): US OB >= 14 weeks Fetus Accession Number(s): [id number] cc: CHANNING ELAINE ; Jonas Garcia D.O. The [place] [id number] Patient Name: ASTRID BRAXTON MRN: [id number] date: 1995 Sex: F Assigned Patient Location: [facility] Current Patient Location: [facility] Accession/Order Number: [id number] Exam Date: 03/09/2024 14:01 Report Date: 03/09/2024 15:19 At the request of: JONAS GARCIA Procedure: US OB >= 14 weeks Fetus EXAMINATION: US OB >= 14 weeks Fetus HISTORY: MISSED MENSES COMPARISON: No relevant comparison available. TECHNIQUE: Transabdominal sonographic examination was performed for obstetrical and evaluation. FINDINGS: Number: 1 Heart Rate: 155 H.B. /min Amniotic Fluid Volume: Subjectively normal Placental Location: Anterior BIOMETRY: BPD: 3.2 cm, 16 weeks 0 days, 10% HC: 12.6 cm, 16 weeks 3 days, 12% AC: 10.8 cm, 16 weeks 5 days, 38% FL: 2.1 cm, 16 weeks 1 day, 15% EFW:155 g, 5 ounces, 13%; FL/AC: 19.1 FL/BPD: 64.4 HC/AC: 1.17 GESTATIONAL AGE: Age by EDC: 17 weeks 0 days NATALIA by EDC: 08/17/2024 Age by current US: 16 weeks 2 days NATALIA by current US: 08/22/2024 US/US OB >= 14 weeks Fetus IMPRESSION: Viable mejia intrauterine gestation measuring 16 weeks 2 days *Reference: [facility] Practice Guideline for the performance of Obstetric Ultrasound Examinations, May 16, 2007. Electronically authenticated by: PREM GUERRA Date: 03/09/2024 15:19 Dictated By: Prem Guerra M.D. Signed By:03/09/24 1522 DD/ 1519 TD/TT: Online Education Manager: us Jonas Jose DO [facility] Final Result documented in this encounter Visit Diagnoses Not on filedocumented in this encounter
--- OUTSIDE RECORDS SUMMARY | 2025-03-07 17:29 | XMS_ITS | Encounter Summary ---
Author Organization [facility] Address [address] [place] [address] Care Team Providers Care Security Site Supervisor Name Role Phone Unavailable Primary Care Provider Unavailabl e Encounter Details Date Type Department Care Team (Late st Contact Info) Description 05/15/2024 Clinisync Result Encounter [facility] External Department Unsolicited Isabela Palmer PA [address] [place] [address] Social History Tobacco Use Types [...] Priority Date/Time Associated Diagnosis Comments US OB INCOMPLETE ANATOMY 05/15/2024 10:27 AM EDT documented in this encounter Results * US OB INCOMPLETE ANATOMY (05/15/2024 10:27 AM EDT) Anatomical Region Laterality Modality Other 05/15/2024 10:2 7 AM EDT Narrative 05/15/2024 10:30 AM EDT The [address] [address] Ultrasound Report Signed Patient: ASTRID MONTAGUE MR#: [id number] : 1995 Acct:[id number] Age/Sex: 28 / F ADM Date: 05/15/24 Loc: [facility] Attending Dr: Isabela Palmer Ordering Physician: Isabela Palmer Date of Service: 05/15/24 Procedure(s): US OB incomplete anatomy Accession Number(s): [id number] cc: CHANNING Keenan [place] [address] Patient Name: ASTRID MONTAGUE MRN: [facility]:[id number] date: 1995 Sex: F Assigned Patient Location: [facility] Current Patient Location: [facility] Accession/Order Number: [id number] Exam Date: 05/15/2024 10:00 Report Date: 05/15/2024 10:27 At the request of: ISABELA PALMER Procedure: US OB incomplete anatomy EXAM: US OB incomplete anatomy HISTORY: Follow-up ultrasound of anatomy Z36.2 COMPARISON: Ultrasound OB anatomy 04/18/2024 TECHNIQUE: Transabdominal ultrasound evaluation. FINDINGS: Presentation: Cephalic Heart rate: 142 bpm Anatomy: Nasal bones GA: 26 weeks 4 days NATALIA: 08/17/2024 US/US OB incomplete anatomy IMPRESSION: 1. Single live intrauterine . 2. Normal appearance of the nasal bones. Electronically authenticated by: JOSE FRENCH Date: 05/15/2024 10:27 Dictated By: Jose French M.D. Signed By: 05/15/24 1030 DD/ 1027 TD/TT: Office Rn: Procedure Note Radiology, Radiologist, MD - 05/15/2024 [place] [address] Ultrasound Report Signed Patient: ASTRID MONTAGUE CMR#: [id number] : 1995Acct:[id number] Age/Sex: 28 / FADM Date: 05/15/24 Loc: [facility] Attending Dr: Isabela Palmer Ordering Physician: Isabela Palmer Date of Service: 05/15/24 Procedure(s): US OB incomplete anatomy Accession Number(s): [id number] cc: CHANNING Keenan [place] [id number] Patient Name: ASTRID MONTAGUE MRN: [facility]:[id number] date: 1995 Sex: F Assigned Patient Location: [facility] Current Patient Location: [facility] Accession/Order Number: [id number] Exam Date: 05/15/2024 10:00 Report Date: 05/15/2024 10:27 At the request of: ISABELA PALMER Procedure: US OB incomplete anatomy EXAM: US OB incomplete anatomy HISTORY: Follow-up ultrasound of anatomy Z36.2 COMPARISON: Ultrasound OB anatomy 04/18/2024 TECHNIQUE: Transabdominal ultrasound evaluation. FINDINGS: Presentation: Cephalic Heart rate: 142 bpm Anatomy: Nasal bones GA: 26 weeks 4 days NATALIA: 08/17/2024 US/US OB incomplete anatomy IMPRESSION: 1. Single live intrauterine . 2. Normal appearance of the nasal bones. Electronically authenticated by: JOSE FRENCH Date: 05/15/2024 10:27 Dictated By: Jose French M.D. Signed By:05/15/24 1030 DD/ 1027 TD/TT: Office Rn: us Isabela HENNESSY [facility] Final Result documented in this encounter Visit Diagnoses Not on filedocumented in this encounter Additional Health Concerns Active Problems Noted Date Diagnosed Date OB Reminders 04/11/2024 documented as of this encounter
--- OUTSIDE RECORDS SUMMARY | 2025-03-07 17:29 | XMS_ITS | Encounter Summary ---
Author Organization [facility] Address [address] [place] [address] Care Team Providers Care Side Seam Envelope Machine Operator Name Role Phone Unavailable Primary Care Provider Unavailabl e Encounter Details Date Type Department Care Team (Late st Contact Info) Description 07/18/2024 Clinisync Result Encounter [facility] External Department Unsolicited Jonas Garcia, DO [address] [place] [place] [address] Social History Tobacco Use Types [...] Priority Date/Time Associated Diagnosis Comments US OB GROWTH 07/18/2024 12:29 PM EST documented in this encounter Results * US OB GROWTH (07/18/2024 12:29 PM EST) Anatomical Region Laterality Modality Other 07/18/2024 12:2 9 PM EST Narrative 07/18/2024 12:32 PM EST The [address] [address] Ultrasound Report Signed Patient: ASTRID BRAXTON MR#: [id number] : 1995 Acct:[id number] Age/Sex: 28 / F ADM Date: 07/18/24 Loc: [facility] Attending Dr: Jonas Garcia D.O. Ordering Physician: Jonas Garcia D.O. Date of Service: 07/18/24 Procedure(s): US OB growth Accession Number(s): [id number] cc: CHANNING ELAINE ; Jonas Garcia D.O. [place] [address] Patient Name: ASTRID BRAXTON MRN: [facility]:[id number] date: 1995 Sex: F Assigned Patient Location: [facility] Current Patient Location: [facility] Accession/Order Number: [id number] Exam Date: 07/18/2024 10:32 Report Date: 07/18/2024 12:29 At the request of: JONAS GARCIA Procedure: US OB growth EXAMINATION: US OB growth HISTORY: LARGE FOR GESTATIONAL AGE COMPARISON: No relevant comparison available. TECHNIQUE: Transabdominal sonographic examination was performed for obstetrical and evaluation. FINDINGS: Number: 1 Heart Rate: 134 bpm H.B. /min Amniotic Fluid Volume: 9.5 cm, largest pocket 4.7 cm Placental Location: Anterior Cephalic presentation, longitudinal lie BIOMETRY: BPD: 8.84 cm; 35w5d; 57.40 % HC: 32.13 cm; 36w2d; 30.90 % AC: 31.79 cm; 35w5d; 59.40 % FL: 6.85 cm; 35w1d; 30.40 % EFW:2744.81 g; 47.40 % FL/AC: 21.55 FL/BPD: 77.49 HC/AC: 1.01 GESTATIONAL AGE: Age by EDC: 35w5d NATALIA by EDC: 2024-08-17 Age by current US: 35w5d NATALIA by current US: 2024-08-17 US/US OB growth IMPRESSION: Normal interval growth *Reference: [facility] Practice Guideline for the performance of Obstetric Ultrasound Examinations, May 16, 2007. Electronically authenticated by: PREM GUERRA Date: 07/18/2024 12:29 Dictated By: Prem Guerra M.D. Signed By: 07/18/24 1232 DD/ 1229 TD/TT: Inorganic Chemistry Teacher: Procedure Note Radiology, Radiologist, - 07/18/2024 [place] [address] Ultrasound Report Signed Patient: ASTRID BRAXTON CMR#: [id number] : 1995Acct:[id number] Age/Sex: 28 / FADM Date: 07/18/24 Loc: [facility] Attending Dr: Jonas Garcia D.O. Ordering Physician: Jonas Garcia D.O. Date of Service: 07/18/24 Procedure(s): US OB growth Accession Number(s): [id number] cc: CHANNNIG ELAINE ; Jonas Garcia D.O. The [place] [address] Patient Name: ASTRID BRAXTON MRN: [facility]:[id number] date: 1995 Sex: F Assigned Patient Location: [facility] Current Patient Location: [facility] Accession/Order Number: [id number] Exam Date: 07/18/2024 10:32 Report Date: 07/18/2024 12:29 At the request of: JONAS GARCIA Procedure: US OB growth EXAMINATION: US OB growth HISTORY: LARGE FOR GESTATIONAL AGE COMPARISON: No relevant comparison available. TECHNIQUE: Transabdominal sonographic examination was performed for obstetrical and evaluation. FINDINGS: Number: 1 Heart Rate: 134 bpm H.B. /min Amniotic Fluid Volume: 9.5 cm, largest pocket 4.7 cm Placental Location: Anterior Cephalic presentation, longitudinal lie BIOMETRY: BPD: 8.84 cm; 35w5d; 57.40 % HC: 32.13 cm; 36w2d; 30.90 % AC: 31.79 cm; 35w5d; 59.40 % FL: 6.85 cm; 35w1d; 30.40 % EFW:2744.81 g; 47.40 % FL/AC: 21.55 FL/BPD: 77.49 HC/AC: 1.01 GESTATIONAL AGE: Age by EDC: 35w5d NATALIA by EDC: 2024-08-17 Age by current US: 35w5d NATALIA by current US: 2024-08-17 US/US OB growth IMPRESSION: Normal interval growth *Reference: [employer] Practice Guideline for the performance of Obstetric Ultrasound Examinations, May 16, 2007. Electronically authenticated by: PREM GUERRA Date: 07/18/2024 12:29 Dictated By: Prem Guerra M.D. Signed By:07/18/24 1232 DD/ 1229 TD/TT: Inorganic Chemistry Teacher: us Jonas Jose DO [facility] Final Result documented in this encounter Visit Diagnoses Not on filedocumented in this encounter Additional Health Concerns Active Problems Noted Date Diagnosed Date OB Reminders 04/11/2024 documented as of this encounter
--- OUTSIDE RECORDS SUMMARY | 2025-03-07 17:30 | XMS_ITS | Encounter Summary ---
Author Organization [facility] Address [address] [place] [address] Care Team Providers Care Manager Actuarial Name Role Phone Unavailable Primary Care Provider Unavailabl e Encounter Details Date Type Department Care Team (Late st Contact Info) Description 02/17/2023 Abstract [facility] OB [address] [facility] [place] [address] Sukhwinder Garcia, DO [address] [facility] [address] [place], [facility] Social History Tobacco Use Types Packs/Day [...]
--- OUTSIDE RECORDS SUMMARY | 2025-03-07 17:30 | XMS_ITS | Encounter Summary ---
Author Organization [facility] Address [address] [place] [address] Care Team Providers Care Strategy Director Name Role Phone Unavailable Primary Care Provider Unavailabl e Encounter Details Date Type Department Care Team (Late st Contact Info) Description 08/12/2024 Abstract [facility] [address] [facility] [address] Sukhwinder Garcia, DO [address], [...]
--- OUTSIDE RECORDS SUMMARY | 2025-03-07 17:30 | XMS_ITS | Encounter Summary ---
Author Organization [facility] Address [address] [place] [address] Care Team Providers Care Corrugator Helper Name Role Phone Unavailable Primary Care Provider Unavailabl e Encounter Details Date Type Department Care Team (Late st Contact Info) Description 04/11/2024 Abstract [facility] [address] [facility] [place] [address] Sukhwinder Garcia, DO [address], [facility]11 Social History Tobacco [...]
--- OUTSIDE RECORDS SUMMARY | 2025-03-07 17:30 | XMS_ITS | Clinical Summary ---
Author Organization [facility] Address [id number] [address] [place] [address] Care Team Providers Care Benefits Specialist Recruiter Name Role Phone Jadon Cedillo MD Primary Care Provider [phone] Allergies Active Allergy Reactions Criticality Noted Date [...] on file Insurance [place] [employer] Care Teams Benefits Specialist Recruiter Relationship Specialty Start Date End Date Jadon Cedillo MD PCP - General Family Medicine 11/28/21
--- OUTSIDE RECORDS SUMMARY | 2025-03-07 17:30 | XMS_ITS | Encounter Summary ---
Author Organization [facility] Address [address] [place] [address] Care Team Providers Care Paraffiner Name Role Phone Unavailable Primary Care Provider Unavailabl e Encounter Details Date Type Department Care Team (Late st Contact Info) Description 08/22/2024 Abstract [facility] [address] [facility] [place] [address] Sukhwinder Garcia, DO [address], [place] [address] Social History Tobacco Use Types Packs/Day Years Used Date Smoking Tobacco: Never Comments No Sex and Gender Information Value [...]
--- OUTSIDE RECORDS SUMMARY | 2025-03-07 17:30 | XMS_ITS | Encounter Summary ---
Author Organization [facility] Address [address] [place] [address] Care Team Providers Care Land Examiner Name Role Phone Unavailable Primary Care Provider Unavailabl e Encounter Details Date Type Department Care Team (Late st Contact Info) Description 03/14/2024 Abstract [facility] OB [address] [facility] [address] [place] [address] Sukhwinder Garcia, DO [address], [facility] Social History Tobacco Use Types Packs/Day [...]
--- OUTSIDE RECORDS SUMMARY | 2025-03-07 17:30 | XMS_ITS | Encounter Summary ---
Author Organization [facility] Address [address] [place] [address] Care Team Providers Care Youth Coordinator Name Role Phone Unavailable Primary Care Provider Unavailabl e Encounter Details Date Type Department Care Team (Late st Contact Info) Description 04/18/2024 Clinisync Result Encounter [facility] External Department Unsolicited Jonas Garcia, DO [address] [facility] [address] [place] [place] [address] Social History Tobacco Use Types [...] Priority Date/Time Associated Diagnosis Comments US OB ANATOMY 04/18/2024 12:06 PM EDT documented in this encounter Results * US OB ANATOMY (04/18/2024 12:06 PM EDT) Anatomical Region Laterality Modality Other 04/18/2024 12:0 6 PM EDT Narrative 04/18/2024 12:08 PM EDT The [address] [address] Ultrasound Report Signed Patient: ASTRID BRAXTON MR#: [id number] : 1995 Acct:[id number] Age/Sex: 28 / F ADM Date: 04/18/24 Loc: US Attending Dr: Jonas Garcia D.O. Ordering Physician: Jonas Garcia D.O. Date of Service: 04/18/24 Procedure(s): US OB anatomy Accession Number(s): [id number] cc: CHANNING ELAINE ; Jonas Garcia D.O. [place] [id number] Patient Name: ASTRID BRAXTON MRN: [facility]:[id number] date: 1995 Sex: F Assigned Patient Location: US Current Patient Location: US Accession/Order Number: [id number] Exam Date: 04/18/2024 11:00 Report Date: 04/18/2024 12:06 At the request of: JONAS GARCIA Procedure: US OB anatomy EXAMINATION: US OB anatomy, US OB cervical length HISTORY: anatomic survey COMPARISON: Ultrasound OB greater than 14 weeks 03/09/2024 TECHNIQUE: Transabdominal sonographic examination was performed for obstetrical and evaluation. FINDINGS: Number: 1 Heart Rate: 160.71 bpm H.B. /min Amniotic Fluid Volume: Subjectively normal Placental Location: Anterior with lower margin 5.4 cm from os. Cervix Length: 5.80 cm , closed. ANATOMY: Normal Structures -cerebellum, choroid plexus, cisterna magna, lateral cerebral ventricles, orbits, midline falx, four-chamber heart, RVOT, LVOT, stomach, kidneys, bladder, umbilical cord insertion into abdomen, three-vessel cord, cervical spine, thoracic spine, lumbar spine, sacral spine, right upper extremity, left upper extremity, right lower extremity, left lower extremity. SUBOPTIMALLY SEEN: Nasal bones ABNORMALITIES: None BIOMETRY: BPD: 5.08 cm; 21 weeks 3 days; 7 % HC: 19.69 cm; 21 weeks 6 days; 10.10 % AC: 18.03 cm; 22 weeks 6 days; 47.40 % FL: 3.64 cm; 21 weeks 4 days; 9.50 % EFW:485.42 g; 21.10 % FL/AC: 20.19 FL/BPD: 71.74 HC/AC: 1.09 GESTATIONAL AGE: Age by EDC: 22 weeks 5 days Age by current US: 22 weeks 0 days NATALIA by current US: 2024-08-22 NATALIA by EDC: 2024-08-17 US/US OB anatomy IMPRESSION: 1. Single live intrauterine with growth detailed above. 2. Suboptimal visualization of the nasal bones due to position. Electronically authenticated by: JOSE FRENCH Date: 04/18/2024 12:06 Dictated By: Jose French M.D. Signed By: 04/18/24 1208 DD/ 1206 TD/TT: Machinist General: Procedure Note Radiology, Radiologist, MD - 04/18/2024 [place] [address] Ultrasound Report Signed Patient: ASTRID BRAXTON CMR#: [id number] : 1995Acct:[id number] Age/Sex: 28 / FADM Date: 04/18/24 Loc: US Attending Dr: Jonas Garcia D.O. Ordering Physician: Jonas Garcia D.O. Date of Service: 04/18/24 Procedure(s): US OB anatomy Accession Number(s): [id number] cc: CHANNING ELAINE ; Jonas Garcia D.O. The [place] [id number] Patient Name: ASTRID BRAXTON MRN: [id number] date: 1995 Sex: F Assigned Patient Location: US Current Patient Location: US Accession/Order Number: [id number] Exam Date: 04/18/2024 11:00 Report Date: 04/18/2024 12:06 At the request of: JONAS GARCIA Procedure: US OB anatomy EXAMINATION: US OB anatomy, US OB cervical length HISTORY: anatomic survey COMPARISON: Ultrasound OB greater than 14 weeks 03/09/2024 TECHNIQUE: Transabdominal sonographic examination was performed for obstetrical and evaluation. FINDINGS: Number: 1 Heart Rate: 160.71 bpm H.B. /min Amniotic Fluid Volume: Subjectively normal Placental Location: Anterior with lower margin 5.4 cm from os. Cervix Length: 5.80 cm , closed. ANATOMY: Normal Structures -cerebellum, choroid plexus, cisterna magna, lateral cerebral ventricles, orbits, midline falx, four-chamber heart, RVOT, LVOT, stomach, kidneys, bladder, umbilical cord insertion into abdomen,three-vessel cord, cervical spine, thoracic spine, lumbar spine, sacral spine, rightupper extremity, left upper extremity, right lower extremity, left lowerextremity. SUBOPTIMALLY SEEN: Nasal bones ABNORMALITIES: None BIOMETRY: BPD: 5.08 cm; 21 weeks 3 days; 7 % HC: 19.69 cm; 21 weeks 6 days; 10.10 % AC: 18.03 cm; 22 weeks 6 days; 47.40 % FL: 3.64 cm; 21 weeks 4 days; 9.50 % EFW:485.42 g; 21.10 % FL/AC: 20.19 FL/BPD: 71.74 HC/AC: 1.09 GESTATIONAL AGE: Age by EDC: 22 weeks 5 days Age by current US: 22 weeks 0 days NATALIA by current US: 2024-08-22 NATALIA by EDC: 2024-08-17 US/US OB anatomy IMPRESSION: 1. Single live intrauterine with growth detailed above. 2. Suboptimal visualization of the nasal bones due to position. Electronically authenticated by: JOSE FRENCH Date: 04/18/2024 12:06 Dictated By: Jose French M.D. Signed By:04/18/24 1208 DD/ 1206 TD/TT: Machinist General: Jonas Garcia DO [facility] Final Result documented in this encounter Visit Diagnoses Not on filedocumented in this encounter Additional Health Concerns Active Problems Noted Date Diagnosed Date OB Reminders 04/11/2024 documented as of this encounter
--- OUTSIDE RECORDS SUMMARY | 2025-03-07 17:30 | XMS_ITS | Encounter Summary ---
Author Organization [facility] Address [address] [place] [address] Care Team Providers Care Risk Management Manager Name Role Phone Unavailable Primary Care Provider Unavailabl e Encounter Details Date Type Department Care Team (Late st Contact Info) Description 04/18/2024 Clinisync Result Encounter [facility] External Department Unsolicited Jonas Garcia, DO [address] [facility] [address] [place], [place] [id number] Social History Tobacco Use Types Packs/Day Years Used Date Smoking Tobacco: Never Comments Yes Sex and Gender Information Value Date Recorded Sex Assigned at Not on file Legal Sex Female 8:35 PM EDT Gender Identity Not on file Sexual Orientation Not on file documented as of this encounter Miscellaneous Notes * Result Encounter Note - Zonia Gan LPN - 04/18/2024 12:10 PM EDT Left detailed message for pt and order was faxed to the hospital documented in this encounter Plan of Treatment Not on file documented as of this encounter Goals Goal Patient Goal Type Associated Problems Recent Progress Patient-Stated? Author Reminders Care Plan OB Reminders No Open Scheduling, Background documented as of this encounter Procedures Procedure Name Priority Date/Time Associated Diagnosis Comments US OB CERVICAL LENGTH 04/18/2024 12:06 PM EDT documented in this encounter Results * US OB CERVICAL LENGTH (04/18/2024 12:06 PM EDT) Anatomical Region Laterality Modality Other 04/18/2024 12:0 6 PM EDT Narrative 04/18/2024 12:08 [place] [address] Ultrasound Report Signed Patient: ASTRID MONTAGUE MR#: [id number] : 1995 Acct:[id number] Age/Sex: 28 / F ADM Date: 04/18/24 Loc: US Attending Dr: Jonas Garcia D.O. Ordering Physician: Jonas Garcia D.O. Date of Service: 04/18/24 Procedure(s): US OB cervical length Accession Number(s): [id number] cc: CHANNING ELAINE ; Jonas Garcia D.O. [place] [id number] Patient Name: ASTRID MONTAGUE MRN: [id number] date: 1995 Sex: F Assigned Patient Location: US Current Patient Location: US Accession/Order Number: [id number] Exam Date: 04/18/2024 11:00 Report Date: 04/18/2024 12:06 At the request of: JONAS GARCIA Procedure: US OB cervical length EXAMINATION: US OB anatomy, US OB cervical [...] 2024-08-22 NATALIA by EDC: 2024-08-17 US/US OB cervical length IMPRESSION: 1. Single live intrauterine with growth detailed above. 2. Suboptimal visualization of the nasal bones due to position. Electronically authenticated by: JOSE FRENCH Date: 04/18/2024 12:06 Dictated By: Jose French M.D. Signed By: 04/18/24 1208 DD/ 1206 TD/TT: Jewish Thought Professor: Procedure Note Radiology, Radiologist, MD - 04/18/2024 [place] [address] Ultrasound Report Signed Patient: ASTRID MONTAGUE CMR#: [id number] : 1995Acct:[id number] Age/Sex: 28 FADM Date: 04/18/24 Loc: US Attending Dr: Jonas Garcia D.O. Ordering Physician: Jonas Garcia D.O. Date of Service: 04/18/24 Procedure(s): US OB cervical length Accession Number(s): [id number] cc: CHANNING ELAINE ; Jonas Garcia D.O. The [place] [address] Patient Name: ASTRID MONTAGUE MRN: [id number] date: 1995 Sex: F Assigned Patient Location: US Current Patient Location: US Accession/Order Number: [id number] Exam Date: 04/18/2024 11:00 Report Date: 04/18/2024 12:06 At the request of: JONAS GARCIA Procedure: US OB cervical length EXAMINATION: US OB anatomy, US OB cervical [...] 2024-08-22 NATALIA by EDC: 2024-08-17 US/US OB cervical length IMPRESSION: 1. Single live intrauterine with growth detailed above. 2. Suboptimal visualization of the nasal bones due to position. Electronically authenticated by: JOSE FRENCH Date: 04/18/2024 12:06 Dictated By: Jose French M.D. Signed By:04/18/24 1208 DD/ 1206 TD/TT: Jewish Thought Professor: Jonas Garcia DO [facility] Final Result documented in this encounter Visit Diagnoses Not on filedocumented in this encounter Additional Health Concerns Active Problems Noted Date Diagnosed Date OB Reminders 04/11/2024 documented as of this encounter
--- OUTSIDE RECORDS SUMMARY | 2025-03-07 17:30 | XMS_ITS | Patient Health Record ---
Author Organization [facility] in [place] Address [address] [place] [address] Care Team Providers Care Slide Attendant Name Role Phone Karen Elaine Primary Care Provider [phone] Allergies No Known Allergies Results Component Value Reference Range Notes CBC AUTO DIFF Reviewed date:04/11/2024 10:39:21 AM Interpretation: Performing Lab: Notes/Report: [facility] , White Blood Count 13.3 4.0-11.0 10 3/uL Red Blood Count 4.16 4.20-5.40 10 6/uL Hemoglobin 11.3 12.0-16.0 g/dL Hematocrit 33.8 36.0-48.0 % Mean Corpuscular Volume 81.3 81.0-99.0 fL Mean Corpuscular Hemoglobin 27.2 26.7-34.0 pg Mean Corpuscular HGB Conc 33.4 29.9-35.2 g/dL Red Cell Distribution Width 13.4 11.0-15.0 % Platelet Count 262 150-450 10 3/uL Mean Platelet Volume 10.7 9.5-13.5 fL Neutrophils Percent Auto 75.2 43.0-75.0 % Lymphocytes Percent Auto 17.5 20.5-60.0 % Monocytes Percent Auto 5.4 1.7-12.0 % Eosinophils Percent Auto 0.9 0.9-7.0 % Basophils Percent Auto 0.2 0.2-2.0 % Immature Granulocytes Pct Auto 0.8 0.0-0.5 % Neutrophils Absolute Auto 10.0 1.4-6.5 10 3/uL Lymphocytes Absolute Auto 2.3 1.2-3.8 10 3/uL Monocytes Absolute Auto 0.7 0.3-0.8 10 3/uL Eosinophils Absolute Auto 0.1 0.0-0.7 10 3/uL Basophils Absolute Auto 0.0 0.0-0.1 10 3/uL Immature Granulocytes Abs Auto 0.11 0.00-0.03 10 3/uL Performing Lab: see note ML - [facility] LB GLYCOHEMOGLOBIN A1C Reviewed date:04/11/2024 10:39:21 AM Interpretation: Performing Lab: Notes/Report: [facility] , Glycohemoglobin A1C 5.3 4.5-6.2 % ADA THERAPEUTIC TARGET < 7.0 ACTION SUGGESTED > 7.0 ADA RECOMMENDED LIMIT 4.0 - 6.0 Estimated Average Glucose 105 Performing Lab: see note ML - [facility] LB RUBELLA AB IGG Reviewed date:04/12/2024 08:17:25 AM Interpretation: Performing Lab: Notes/Report: [facility] , Rubella Antibodies, IgG 2.68 Immune > 0.99 index Equivocal 0.90 - 0.99 Non-immune <0.90 Immune >0.99 Performing Lab: see note LC - [facility] LB IGP,Aptima HPV,Age Gdln Reviewed date:04/18/2024 08:35:11 AM Interpretation: Performing Lab: Notes/Report: SPATULA-ALONE CERVIX [facility] , Age Gdln ACOG Testing Note . TESTS RESULT FLAG UNITS REF RANGE LAB Clinician Provided Cytology Information No. of containers..01 ThinPrep Vial [address] [facility] [place] [address] China Manzano MD, Source.............Cervi x <-Panic Low,>-Panic High,A-Abnormal,AA-Criti marisa Abnormal L-Low Normal,H-High Normal,LL-Alert Low,HH-Alert High 01 =[facility] FLAG LEGEND: Age Algo ACOG Kathy... 21-29 01 Performed at: IGP, rfx Aptima HPV ASCU Note . Rafiq Scanlon MD, Performed at: Performed by: China Manzano MD, result therefore, no HPV testing was performed. Specimen adequacy: 02 detection of premalignant and malignant conditions of the NEGATIVE FOR INTRAEPITHELIAL LESION OR MALIGNANCY. L-Low Normal,H-High Normal,LL-Alert Low,HH-Alert High Satisfactory for evaluation. No endocervical component is identified. The Pap smear is a screening test designed to aid in the <-Panic Low,>-Panic High,A-Abnormal,AA-Criti marisa Abnormal . 02 should not be used as the sole means of detecting cervical uterine cervix. It is not a diagnostic procedure and . 02 Machine Egg Washer: China Manzano MD, Phone: [phone] Machine Egg Washer: Rafiq Scanlon MD, Phone: [phone] the use of an image guided system. Performed at: [facility] Cyto Histo The HPV DNA reflex criteria were not met with this specimen TESTS RESULT FLAG UNITS REF RANGE LAB Test Methodology: Note 03 Daquan Munguia, Supervisor Cigar Making Hand (ASCP) 02 [facility] Cyto Histo Performed at: =[facility] [address] [facility] [address] [address] [place], [place] [phone] [address] [place] [phone] cancer. Both false-positive and false-negative reports do occur. [address], [place] [id number] [place] [address] This liquid based ThinPrep(R) pap test was screened with Note: Note 03 FLAG LEGEND: DIAGNOSIS: 02 Performing Lab: see note [facility] HIV Ab/p24 Ag with Reflex Reviewed date:04/12/2024 08:17:25 AM Interpretation: Performing Lab: Notes/Report: [facility] , HIV Ab/p24 Ag Screen Non Reactive Non Reactive Machine Egg Washer: Dwight Carroll PhD, Phone: [phone] HIV Negative [address] [place], [place] [phone] detected. There is no laboratory evidence of HIV infection. Performed at: [facility] HIV-1/HIV-2 antibodies and HIV-1 p24 antigen were NOT Performing Lab: see note [facility] LB HCV Antibody RFX to Quant PC R Reviewed date:04/12/2024 08:17:25 AM Interpretation: Performing Lab: Notes/Report: [facility] , HCV Ab Non Reactive Non Reactive Interpretation: Comment . infection. Not infected with HCV unless early or acute infection is individual), or other evidence exists to indicate HCV suspected (which may be delayed in an immunocompromised Performing Lab: see note - [facility] LB US OB incomplete anatomy Reviewed date:05/15/2024 03:51:56 PM Interpretation: Performing Lab: Notes/Report: Source Facility: [place] [address] [place] [address] Ultrasound Report Signed Patient: ASTRID MONTAGUE MR#: [id number] : 1995 Acct:[id number] Age/Sex: 28 / F ADM Date: 05/15/24 Loc: NOMS Attending Dr: Isabela Palmer Ordering Physician: Isabela Palmer Date of Service: 05/15/24 Procedure(s): US OB incomplete anatomy Accession Number(s): [id number] cc: Isabela Palmer; KAREN ELAINE [address] [id number] Patient Name: ASTRID MONTAGUE MRN: [id number] date: 1995 Sex: F Assigned Patient Location: [facility] Current Patient Location: [facility] Accession/Order Number: [id number] Exam Date: 05/15/2024 10:00 Report Date: 05/15/2024 [...] Signed By: 05/15/24 1030 DD/ 1027 TD/TT: Metal Spray Operator: [place] [address] Ultrasound Report Signed Patient: ASTRID MONTAGUE MR#: [id number] : 1995 Acct:[id number] Age/Sex: 28 / F ADM Date: 05/15/24 Loc: NOMS Attending Dr: Isabela Palmer Ordering Physician: Isabela Palmer Date of Service: 05/15/24 Procedure(s): US OB incomplete anatomy Accession Number(s): [id number] cc: KAREN Keenan [address] [address] Patient Name: ASTRID MONTAGUE MRN: [facility]:[id number] date: 1995 Sex: F Assigned Patient Location: [facility] Current Patient Location: [facility] Accession/Order Number: [id number] Exam Date: 05/15/2024 10:00 Report Date: 05/15/2024 [...] Signed By: 05/15/24 1030 DD/ 1027 TD/TT: Metal Spray Operator: US OB growth Reviewed date:07/18/2024 01:59:09 PM Interpretation: Performing Lab: Notes/Report: Source Facility: [place] [address] Ultrasound Report Signed Patient: ASTRID MONTAGUE MR#: [id number] : 1995 Acct:[id number] Age/Sex: 28 / F ADM Date: 07/18/24 Loc: NOMS Attending Dr: Jonas Garcia D.O. Ordering Physician: Jonas Garcia D.O. Date of Service: 07/18/24 Procedure(s): US OB growth Accession Number(s): [id number] cc: KAREN ELAINE ; Jonas Garcia D.O. [place] [address] Patient Name: ASTRID MONTAGUE MRN: [id number] date: 1995 Sex: F Assigned Patient Location: [facility] Current Patient Location: [facility] Accession/Order Number: [id number] Exam Date: 07/18/2024 10:32 Report Date: 07/18/2024 [...] Signed By: 07/18/24 1232 DD/ 1229 TD/TT: Metal Spray Operator: [place] [address] Ultrasound Report Signed Patient: ASTRID MONTAGUE MR#: [id number] : 1995 Acct:[id number] Age/Sex: 28 / F ADM Date: 07/18/24 Loc: NOMS Attending Dr: Jonas Garcia D.O. Ordering Physician: Jonas Garcia D.O. Date of Service: 07/18/24 Procedure(s): US OB growth Accession Number(s): [id number] cc: KAREN ELAINE ; Jonas Garcia D.O. The [address] [address] Patient Name: ASTRID MONTAGUE MRN: [facility]:[id number] date: 1995 Sex: F Assigned Patient Location: [facility] Current Patient Location: [facility] Accession/Order Number: [id number] Exam Date: 10:32 Report Date: 07/18/2024 12:29 At the request of: JONAS GARCIA Procedure: US OB growth EXAMINATION: US OB growth HISTORY: LARGE FOR GESTATIONAL AGE COMPARISON: No relevant comparison available. TECHNIQUE: Transabdominal sonographic examination was performed for obstetrical and evaluation. FINDINGS: Number: 1 Heart Rate: 13 4 bpm H.B. /min Amniotic Fluid Volume: 9.5 [...] for the performance of Obstetric Ultrasound Examinations, Octobe r 1, 2007. Electronically authenticated by: PREM GUERRA Date: 07/18/2024 12:29 Dictated By: Prem Guerra M.D. Signed By: 07/18/24 1232 DD/ 1229 TD/TT: Metal Spray Operator: GLYCOHEMOGLOBIN A1C Reviewed date:07/24/2024 12:22:06 PM Interpretation: Performing Lab: Notes/Report: [facility] , Glycohemoglobin A1C 5.5 4.5-6.2 % ADA THERAPEUTIC TARGET < 7.0 ADA RECOMMENDED LIMIT 4.0 - 6.0 ACTION SUGGESTED > 7.0 Estimated Average Glucose 111 Performing Lab: see note ML - [facility] LB DRUG SCREEN RAPID (URINE) Reviewed date:08/14/2024 08:23:02 AM Interpretation: Performing Lab: Notes/Report: [facility] , Cannabinoid Screen Urine NEGATIVE NEGATIVE Phencyclidine Screen Urine NEGATIVE NEGATIVE Cocaine Screen Urine NEGATIVE NEGATIVE Methamphetamines Screen Urine NEGATIVE NEGATIVE Opiate Screen Urine NEGATIVE NEGATIVE Amphetamine Screen Urine NEGATIVE NEGATIVE Benzodiazepines Screen Urine NEGATIVE NEGATIVE Tricyclic Antidepressant Urine NEGATIVE NEGATIVE Methadone Screen Urine NEGATIVE NEGATIVE Barbiturates Screen Urine NEGATIVE NEGATIVE Oxycodone Screen Urine NEGATIVE NEGATIVE Buprenorphine Screen Urine NEGATIVE NEGATIVE COLLEEN (Cocaine): 150 ng/mL mAMP (Methamphetamine): 500 ng/mL BZO (Benzodiazepines): 150 ng/mL OXY (Oxycodone): 100 ng/mL THC (Cannabinoids): 50 ng/mL TCA (Trycyclic Antidepressants): 300 ng/mL OPI (Opiates): 100 ng/mL MTD (Methadone): 200 ng/mL AMP (Amphetamine): 500 ng/mL PCP (Phencyclidine): 25 ng/mL BUP (Buprenorphine): 10 ng/mL FOLLOWS: BAR (Barbiturates): 200 ng/mL DRUG CLASS TEST SYSTEM CUT-OFF CONCENTRATIONS ARE Performing Lab: see note ML - [facility] LB CBC no Diff (Hemogram) Reviewed date:08/14/2024 08:23:02 AM Interpretation: Performing Lab: Notes/Report: [facility] , White Blood Count 13.3 4.0-11.0 10 3/uL Red Blood Count 3.82 4.20-5.40 10 6/uL Hemoglobin 9.8 12.0-16.0 g/dL Hematocrit 30.7 36.0-48.0 % Mean Corpuscular Volume 80.4 81.0-99.0 fL Mean Corpuscular Hemoglobin 25.7 26.7-34.0 pg Mean Corpuscular HGB Conc 31.9 29.9-35.2 g/dL Red Cell Distribution Width 14.4 11.0-15.0 % Platelet Count 277 150-450 10 3/uL Mean Platelet Volume 11.6 9.5-13.5 fL Performing Lab: see note ML - [facility] LB Type and Screen Reviewed date:08/14/2024 08:23:02 AM Interpretation: Performing Lab: Notes/Report: [facility] , Blood Type A Positive Antibody Screen NEGATIVE CBC AUTO DIFF Reviewed date:10/09/2024 01:45:02 PM Interpretation: Performing Lab: Notes/Report: [facility] , White Blood Count 15.3 4.0-11.0 10 3/uL Red Blood Count 4.93 4.20-5.40 10 6/uL Hemoglobin 11.4 12.0-16.0 g/dL Hematocrit 37.5 36.0-48.0 % Mean Corpuscular Volume 76.1 81.0-99.0 fL Mean Corpuscular Hemoglobin 23.1 26.7-34.0 pg Mean Corpuscular HGB Conc 30.4 29.9-35.2 g/dL Red Cell Distribution Width 15.2 11.0-15.0 % Platelet Count 329 150-450 10 3/uL Mean Platelet Volume 10.7 9.5-13.5 fL Neutrophils Percent Auto 82.6 43.0-75.0 % Lymphocytes Percent Auto 7.0 20.5-60.0 % Monocytes Percent Auto 5.8 1.7-12.0 % Eosinophils Percent Auto 4.1 0.9-7.0 % Basophils Percent Auto 0.2 0.2-2.0 % Immature Granulocytes Pct Auto 0.3 0.0-0.5 % Neutrophils Absolute Auto 12.6 1.4-6.5 10 3/uL Lymphocytes Absolute Auto 1.1 1.2-3.8 10 3/uL Monocytes Absolute Auto 0.9 0.3-0.8 10 3/uL Eosinophils Absolute Auto 0.6 0.0-0.7 10 3/uL Basophils Absolute Auto 0.0 0.0-0.1 10 3/uL Immature Granulocytes Abs Auto 0.05 0.00-0.03 10 3/uL Performing Lab: see note ML - [facility] US OB amniotic fluid vol Reviewed date:07/31/2024 08:30:38 AM Interpretation: Performing Lab: Notes/Report: Source Facility: [facility]-[address] [place] [address] [place] [address] Ultrasound Report Signed Patient: ASTRID MONTAGUE MR#: [id number] : 1995 Acct:[id number] Age/Sex: 28 / F ADM Date: 07/29/24 Loc: US Attending Dr: Isabela Palmer Ordering Physician: Isabela Palmer Date of Service: 07/29/24 Procedure(s): US OB amniotic fluid vol Accession Number(s): [id number] cc: Isabela Palmer; KAREN ELAINE [place] [id number] Patient Name: ASTRID MONTAGUE MRN: [facility]:[id number] date: 1995 Sex: F Assigned Patient Location: Current Patient Location: Accession/Order Number: [id number] Exam Date: 07/29/2024 14:59 Report Date: 07/31/2024 [...] the 5th percentile Electronically authenticated by: PREM UGERRA Date: 07/31/2024 07:58 Dictated By: Prem Guerra M.D. Signed By: 07/31/24 0800 DD/ 0758 TD/TT: Metal Spray Operator: [place] [address] Ultrasound Report Signed Patient: ASTRID MONTAGUE MR#: [id number] : 1995 Acct:[id number] Age/Sex: 28 / F ADM Date: 07/29/24 Loc: US Attending Dr: Isabela Palmer Ordering Physician: Isabela Palmer Date of Service: 07/29/24 Procedure(s): US OB amniotic fluid vol Accession Number(s): [id number] cc: Isabela Palmer; KAREN ELAINE [address] [address] Patient Name: ASTRID MONTAGUE MRN: [id number] date: 1995 Sex: F Assigned Patient Location: Current Patient Location: Accession/Order Number: [id number] Exam Date: 14:59 Report Date: 07/31/2024 07:58 At the [...] Signed By: 07/31/24 0800 DD/ 0758 TD/TT: Metal Spray Operator: Strep Gp B DEENA Reviewed date:07/24/2024 12:22:59 PM Interpretation: Performing Lab: Notes/Report: [facility] , Strep Gp B DEENA See Below For Report Strep Gp B DEENA Strep Gp B DEENA Negative Strep Gp B DEENA Strep Gp B DEENA Centers for Disease Control and Prevention (CDC) and Strep Gp B DEENA Strep Gp B DEENA [place] [employer] Strep Gp B DEENA Strep Gp B DEENA (ACOG) guidelines fo r prevention of group B Strep Gp B DEENA Strep Gp B DEENA streptococcal (GBS) disease specify co-collection of Strep Gp B DEENA Strep Gp B DEENA a vaginal and rectal swab specimen to maximize Strep Gp B DEENA Strep Gp B DEENA sensitivity of GBS detection. Per the CDC and ACOG, Strep Gp B DEENA Strep Gp B DEENA swabbing both the lower vagina and rectum Strep Gp B DEENA Strep Gp B DEENA substantially increases the yield of detection Strep Gp B DEENA Strep Gp B DEENA compared with sampling the vagina alone. Strep Gp B DEENA Strep Gp B DEENA Penicillin G, ampicillin, or cefazolin are indicated Strep Gp B DEENA Strep Gp B DEENA for intrapartum prophylaxis of GBS Strep Gp B DEENA Strep Gp B DEENA colonization. Reflex susceptibility testing should be Strep Gp B DEENA Strep Gp B DEENA performed prior to use of clindamycin only on GBS Strep Gp B DEENA Strep Gp B DEENA isolates from penicillin-allergic women who are Strep Gp B DEENA Strep Gp B DEENA considered a high risk for anaphylaxis. Treatment with Strep Gp B DEENA Strep Gp B DEENA vancomycin without additional testing is warranted if Strep Gp B DEENA Strep Gp B DEENA resistance to clindamycin is noted. Strep Gp B DEENA Strep Gp B DEENA Performed at: [facility] Strep Gp B DEENA Strep Gp B DEENA [address] [place] [phone] Strep Gp B DEENA Strep Gp B DEENA Machine Egg Washer: Esequiel Carroll PhD, Phone: [phone] Strep Gp B DEENA Performing Lab: see note LC - [facility] LB SEE REPORT - Pipe Insulator Helper Id information not found for OBX-specific digital content producer legend US OB anatomy Reviewed date:04/18/2024 02:17:17 PM Interpretation: Performing Lab: Notes/Report: Source Facility: [place] [address] Ultrasound Report Signed Patient: ASTRID MONTAGUE MR#: [id number] : 1995 Acct:[id number] Age/Sex: 28 / F ADM Date: 04/18/24 Loc: US Attending Dr: Jonas Garcia D.O. Ordering Physician: Jonas Garcia D.O. Date of Service: 04/18/24 Procedure(s): US OB anatomy Accession Number(s): [id number] cc: KAREN ELAINE ; Jonas Garcia D.O. The [place] [address] Patient Name: ASTRID MONTAGUE MRN: [id number] date: 1995 Sex: F Assigned Patient Location: US Current Patient Location: US Accession/Order Number: [id number] Exam Date: 04/18/2024 11:00 Report Date: 04/18/2024 [...] Signed By: 04/18/24 1208 DD/ 1206 TD/TT: Metal Spray Operator: [place] [address] Ultrasound Report Signed Patient: ASTRID MONTAGUE MR#: [id number] : 1995 Acct:[id number] Age/Sex: 28 / F ADM Date: 04/18/24 Loc: US Attending Dr: Jonas Garcia D.O. Ordering Physician: Jonas Garcia D.O. Date of Service: 04/18/24 Procedure(s): US OB anatomy Accession Number(s): [id number] cc: KAREN ELAINE ; Jonas Garcia D.O. The [place] [id number] Patient Name: ASTRID MONTAGUE MRN: [id number] date: 1995 Sex: F Assigned Patient Location: US Current Patient Location: US Accession/Order Number: [id number] Exam Date: 04/18/2024 11:00 Report Date: 04/18/2024 [...] cord insertion into abdomen, three-vessel cord, cervical spine , thoracic spine, lumbar spine, sacral spine, right upper extremity, left uppe r extremity, right lower extremity, left lower extremity. SUBOPTIMALLY SEEN: Nasal bones ABNORMALITIES: None BIOMETRY: BPD: 5.08 cm; 21 weeks 3 days; 7 % HC: 19.69 cm; 21 weeks 6 days; 10.10 % AC: 18.03 cm; 22 weeks 6 days; 47.40 % FL: 3.64 cm; 21 week s 4 days; 9.50 % EFW:485.42 g; 21.10 % FL/AC: 20.19 FL/BPD: 71.74 HC/AC: 1.09 GESTATIONAL AGE: Age by EDC: 22 weeks 5 days Age by current US: 2 2 weeks 0 days NATALIA by current US: 2024-08-22 NATALIA by EDC: 2024-08-17 US/US OB anatomy IMPRESSION: 1. Single live intrauterine with growth detailed above. 2. Suboptimal visualization of the nasal bones due to position. Electronically authenticated by: JOSE FRENCH Date: 04/18/2024 12:06 Dictated By: Jose French M.D. Signed By: 04/18/24 1208 DD/ 1206 TD/TT: Metal Spray Operator: US OB cervical length Reviewed date:04/18/2024 02:17:17 PM Interpretation: Performing Lab: Notes/Report: Source Facility: [place] [address] Ultrasound Report Signed Patient: ASTRID MONTAGUE MR#: [id number] : 1995 Acct:[id number] Age/Sex: 28 / F ADM Date: 04/18/24 Loc: US Attending Dr: oJnas Garcia D.O. Ordering Physician: Jonas Garcia D.O. Date of Service: 04/18/24 Procedure(s): US OB cervical length Accession Number(s): [id number] cc: KAREN ELAINE ; Jonas Garcia D.O. [place] [address] Patient Name: ASTRID MONTAGUE MRN: [id number] date: 1995 Sex: F Assigned Patient Location: Current Patient Location: US Accession/Order Number: [id number] Exam Date: 04/18/2024 11:00 Report Date: 04/18/2024 [...] By: Jose French M.D. Signed By: 04/18/24 120 DD/ 120 TD/TT: Metal Spray Operator: [place] [address] Ultrasound Report Signed Patient: ASTRID MONTAGUE MR#: [id number] : 1995 Acct:[id number] Age/Sex: 28 / F ADM Date: 04/18/24 Loc: US Attending Dr: Jonas Garcia D.O. Ordering Physician: Jonas Garcia D.O. Date of Service: 04/18/24 Procedure(s): US OB cervical length Accession Number(s): [id number] cc: KAREN ELAINE ; Jonas Garcia D.O. [place] [id number] Patient Name: ASTRID MONTAGUE MRN: [facility]:[id number] date: 1995 Sex: F Assigned Patient Location: US Current Patient Location: Accession/Order Number: [id number] Exam Date: 04/18/2024 11:00 Report Date: 04/18/2024 [...] cord insertion into abdomen, three-vessel cord, cervical spine , thoracic spine, lumbar spine, sacral spine, right upper extremity, left uppe r extremity, right lower extremity, left lower extremity. SUBOPTIMALLY SEEN: Nasal bones ABNORMALITIES: None BIOMETRY: BPD: 5.08 cm; 21 weeks 3 days; 7 % HC: 19.69 cm; 21 weeks 6 days; 10.10 % AC: 18.03 cm; 22 weeks 6 days; 47.40 % FL: 3.64 cm; 21 week s 4 days; 9.50 % EFW:485.42 g; 21.10 % FL/AC: 20.19 FL/BPD: 71.74 HC/AC: 1.09 GESTATIONAL AGE: Age by EDC: 22 weeks 5 days Age by current US: 2 2 weeks 0 days NATALIA by current US: 2024-08-22 NATALIA by EDC: 2024-08-17 US/US OB cervical length IMPRESSION: 1. Single live intrauterine with growth detailed above. 2. Suboptimal visualization of the nasal bones due to position. Electronically authenticated by: JOSE FRENCH Date: 04/18/2024 12:06 Dictated By: Jose French M.D. Signed By: 04/18/24 1208 DD/ 1206 TD/TT: Metal Spray Operator: Urine Culture, Routine Reviewed date:04/14/2024 11:21:00 AM Interpretation: Performing Lab: Notes/Report: [facility] , Urine Culture, Routine See Below For Report Urine Culture, Routine Urine Culture, Routine Greater than 2 organisms recovered, none predominant. Please submit Urine Culture, Routine Urine Culture, Routine another sample if clinically indicated. Urine Culture, Routine Urine Culture, Routine Greater than 100, 000 colony forming units per mL Urine Culture, Routine Urine Culture, Routine Performed at: [facility] Urine Culture, Routine Urine Culture, Routine [address] [place] [phone] Urine Culture, Routine Urine Culture, Routine Machine Egg Washer: Beau Carroll PhD, Phone: [phone] Urine Culture, Routine Performing Lab: see note SEE REPORT - Pipe Insulator Helper Id information not found for OBX-specific digital content producer legend [facility] LB HBsAg Screen Reviewed date:04/14/2024 11:21:00 AM Interpretation: Performing Lab: Notes/Report: [facility] , HBsAg Screen Negative Negative Performed at: [facility] Machine Egg Washer: Dwight Carroll PhD, Phone: [phone] [address] [place] [phone] Performing Lab: see note [facility] LB Rapid Plasma Reagin, Quant Reviewed date:04/14/2024 11:21:00 AM Interpretation: Performing Lab: Notes/Report: [facility] , Rapid Plasma Reagin, Quant Non Reactive NonRea<1:1 titer intended for following treatment response in patients being (639661). infection, a reflex cascade that includes both RPR and a Machine Egg Washer: Dwight Carroll PhD, Phone: [phone] Rapid Plasma Reagin (RPR) Test With Reflex to Quantitative RPR and Confirmatory Treponema pallidum Antibodies screening and diagnosis of syphilis. This test is treated for syphilis infection. To screen for syphilis [address] [place] [phone] Treponema pallidum (Syphilis) Screening [place] (731171) or treponema-specific assay should be utilized, such as Please Note: This test does not meet current guidelines for Performed at: [facility] Performing Lab: see note [facility] [employer] LB Type and Screen Reviewed date:04/11/2024 01:15:13 PM Interpretation: Performing Lab: Notes/Report: [facility] , Blood Type A Positive Antibody Screen NEGATIVE US OB >= 14 weeks Fetus Reviewed date:03/09/2024 03:26:19 PM Interpretation: Performing Lab: Notes/Report: Source Facility: [place] [address] [place] [address] Ultrasound Report Signed Patient: ASTRID MONTAGUE MR#: [id number] : 1995 Acct:[id number] Age/Sex: 28 / F ADM Date: 03/09/24 Loc: NOMS Attending Dr: Jonas Garcia D.O. Ordering Physician: Jonas Garcia D.O. Date of Service: 03/09/24 Procedure(s): US OB >= 14 weeks Fetus Accession Number(s): [id number] cc: KAREN ELAINE ; Jonas Garcia D.O. The [place] [address] Patient Name: ASTRID MONTAGUE MRN: [id number] date: 1995 Sex: F Assigned Patient Location: [facility] Current Patient Location: [facility] Accession/Order Number: [id number] Exam Date: 03/09/2024 14:01 Report Date: 03/09/2024 [...] Signed By: 03/09/24 1522 DD/ 1519 TD/TT: Metal Spray Operator: [place] [address] Ultrasound Report Signed Patient: ASTRID MONTAGUE MR#: [id number] : 1995 Acct:[id number] Age/Sex: 28 / F ADM Date: 03/09/24 Loc: [facility] Attending Dr: Jonas Garcia D.O. Ordering Physician: Jonas Garcia D.O. Date of Service: 03/09/24 Procedure(s): US OB >= 14 weeks Fetus Accession Number(s): [id number] cc: KAREN ELAINE ; Jonas Garcia D.O. [place] [address] Patient Name: ASTRID MONTAGUE MRN: [facility]:[id number] date: 1995 Sex: F Assigned Patient Location: [facility] Current Patient Location: [facility] Accession/Order Number: [id number] Exam Date: 03/09/2024 14:01 Report Date: 03/09/2024 15:19 At the request of: JONAS GARCIA Procedure: US OB >= 14 weeks Fetus EXAMINATION: US OB > = 14 weeks Fetus HISTORY: MISSED MENSES COMPARISON: No relevant comparison available. TECHNIQUE: Transabdominal sonographic examination was performed for obstetrical and evaluation. FINDINGS: Number: 1 Heart Rate: 15 5 H.B. /min Amniotic Fluid Volume: Subjectively normal Placental Location: Anterior BIOMETRY: BPD: 3.2 cm, 16 week s 0 days, 10% HC: 12.6 cm, 16 week s 3 days, 12% AC: 10.8 cm, 16 week s 5 days, 38% FL: 2.1 cm, 16 weeks 1 day, 15% EFW:155 g, 5 ounces, 13%; FL/AC: 19.1 FL/BPD: 64.4 HC/AC: 1.17 GESTATIONAL AGE: Age by EDC: 17 weeks 0 days NATALIA by EDC: 08/17/2024 Age by current US: 1 6 weeks 2 days NATALIA by current US: 08/22/2024 US/US OB >= 14 weeks Fetus IMPRESSION: Viable mejia intrauterine gestation measuring 16 weeks 2 days *Reference: [facility] Practice Guideline for the performance of Obstetric Ultrasound Examinations, r 2006. Electronically authenticated by: PREM GUERRA Date: 03/09/2024 15:19 Dictated By: Prem Guerra M.D. Signed By: 03/09/24 1522 DD/ 1519 TD/TT: Metal Spray Operator: PROF Cope(COMP METB) Reviewed date:10/09/2024 01:45:02 PM Interpretation: Performing Lab: Notes/Report: [facility] , Sodium 137 136-145 mmol/L Potassium 4.1 3.5-5.1 mmol/L Chloride 104 98-107 mmol/L Carbon Dioxide 26.4 21.0-32.0 mmol/L Anion Gap 10.7 Glucose 95 74-106 mg/dL Blood Urea Nitrogen 12.0 7.0-18.0 mg/dL Creatinine 0.82 0.55-1.02 mg/dL Estimated GFR ( Soha >60 >=60 mL/min/1.73m 2 Estimated GFR (Non- Karol >60 >=60 mL/min/1.73m 2 BUN Creatinine Ratio 14.6 Calcium 8.4 8.5-10.1 mg/dL Bilirubin Total 0.6 0.2-1.0 mg/dL Aspartate Amino Transferase 13 15-37 U/L Alanine Aminotransferase 26 14-59 U/L Alkaline Phosphatase 83 46-116 U/L Total Protein 7.3 6.4-8.2 g/dL Albumin Level 3.3 3.4-5.0 g/dL Globulin 4.0 Albumin Globulin Ratio 0.8 Performing Lab: see note ML - [facility] LB LIPASE Reviewed date:10/09/2024 01:45:02 PM Interpretation: Performing Lab: Notes/Report: [facility] , Lipase 26.0 16.0-77.0 U/L Performing Lab: see note - [facility] LB Manual Differential Reviewed date:08/14/2024 08:19:41 AM Interpretation: Performing Lab: Notes/Report: [facility] , Segmented Neutrophils % Manual 85.0 43.0-75.0 Lymphocytes Percent Manual 11.0 20.5-60.0 % Monocytes Percent Manual 4.0 1.7-12.0 % Eosinophils Percent Manual 0.0 0.9-7.0 % Basophils Percent Manual 0.0 0.2-2.0 % Segmented Neut Absolute Manual 22.86 1.4-6.5 10 3/uL Lymphocytes Absolute Manual 2.95 1.20-3.80 10 3/uL Monocytes Absolute Manual 1.07 0.30-0.80 10 3/uL Eosinophils Absolute Manual 0.00 0.00-0.70 10 3/uL Basophils Abs Manual 0.00 0.00-0.10 1 0 3/uL Performing Lab: see note - [facility] LB CBC AUTO DIFF Reviewed date:08/14/2024 08:19:46 AM Interpretation: Performing Lab: Notes/Report: [facility] , White Blood Count 26.9 4.0-11.0 10 3/uL Red Blood Count 3.28 4.20-5.40 10 6/uL Hemoglobin 8.5 12.0-16.0 g/dL Hematocrit 26.3 36.0-48.0 % Mean Corpuscular Volume 80.2 81.0-99.0 fL Mean Corpuscular Hemoglobin 25.9 26.7-34.0 pg Mean Corpuscular HGB Conc 32.3 29.9-35.2 g/dL Red Cell Distribution Width 14.4 11.0-15.0 % Platelet Count 290 150-450 10 3/uL Mean Platelet Volume 10.7 9.5-13.5 fL Performing Lab: see note - [facility] LB Reason For Referral No Information Medications Medication SIG (Take, Route, Frequency, Duration) Notes Start Date End Date Status LORazepam 0.5 MG 1 tablet at bedtime as needed Orally Once a day Active Omeprazole 40 MG 1 capsule 30 minutes before morning meal Orally Once a day Active Meclizine HCl 25 MG 1 tablet as needed O rally every 12 hrs Active Zofran Active Brittney 0.25-35 MG-MCG 1 tablet Orally Once a day Active Eliquis 5 MG 1 tablet Orally Twic e a day Active Ferrous Sulfate 325 (65 Fe) MG 1 tablet Orally Once a day A ctive Blood Pressure Kit - as directed Active Diflucan 150 MG 1 tablet Orally Active Problems Problem Type SNOMED Code ICD Code Onset Dates Problem Status W/U Status Risk Notes Problem Iron deficiency (20623685) Iron deficiency (E61.1) Active confirmed Problem Nausea (456660332) Nausea (R11.0) Active confir med Problem Urinary tract infection (61603630) Urinary tract infection (N39.0) Active confirmed Problem Gastroenteritis (35543956) Gastroenteritis (K52.9) Active confirmed Problem Cardiac arrhythmia (611981794) Irregular heart rate (I49.9) Active confirmed Problem Superficial thrombophlebitis (8516924) Superficial thrombophlebitis (I80.9) Active confirmed Problem Annual wellness visit (616117892378407) Wellness examination (Z00.00) Active confirmed Problem Gastro-esophageal reflux disease (571778538) Gastro-esophageal reflux disease (K21.9) Active confirmed Problem Light-headedness (343960970) Light-headedness (R42) Active confirmed Problem Family history of alcoholism (937664174) Family history of alcoholism (Z81.1) Active confirmed Problem History of gallbladder disease (462198067) History of gallbladder disease (Z87.19) Active confirmed Problem Mixed anxiety and depressive disorder (824554217) Anxiety and depression (F41.8) Active confirmed Problem Disease caused by Severe acute respiratory syndrome coronavirus 2 (disorder) (134071109) COVID-19 virus infection (U07.1) Active confirmed Problem 612894379 Headache, unspecified (R51.9) Active confirmed Encounters Encounter Location Date Provider Diagnosis [facility] [address] [place] [address] 03/06/2025 Karen Elaine Plan Of Treatment No Information Insurance Providers Payer Name Payer Address Payer Phone Subscriber Number Group Number Insured Name Patient Relationship to Insured Coverage Start Date Coverage End Date [employer] [place] [employer] [address] [facility] [place] [phone] [id number] Astrid Montague Self - patient is the insured 3 Medical (General) History Medical History History ICD Code Iron deficiency E61.1 Superficial thrombophlebitis I80.9 Nausea R11.0 Urinary tract infection N39.0 Wellness examination Z00.00 Light-headedness R42 Gastroenteritis K52.9 Family history of alcoholism Z81.1 History of gallbladder disease Z87.19 Irregular heart rate I49.9 Gastro-esophageal reflux disease K21.9 Anxiety and depression F41.8 COVID-19 virus infection U07.1
--- OUTSIDE RECORDS SUMMARY | 2025-03-07 17:30 | XMS_ITS | Encounter Summary ---
Author Organization [facility] Address [address] [place] [address] Care Team Providers Care Lodge Sales Associate Name Role Phone Unavailable Primary Care Provider Unavailabl e Encounter Details Date Type Department Care Team (Late st Contact Info) Description 08/11/2024 Abstract [facility] [address] [place] [address] Sukhwinder Garcia, DO [address], [id number] Social History Tobacco Use Types Packs/Day Years [...]
--- OUTSIDE RECORDS SUMMARY | 2025-03-07 17:30 | XMS_ITS | Encounter Summary ---
Author Organization [facility] Address [address] [facility] [place] [address] Care Team Providers Care Regional Clinical Director Name Role Phone Unavailable Primary Care Provider Unavailabl e Encounter Details Date Type Department Care Team (Late st Contact Info) Description 04/20/2024 Orders Only [facility] [address] [place] [address] Acacia Summers LPN [address] [place] [id number] Social History Tobacco Use Types Packs/Day Years [...] Procedure Name Priority Date/Time Associated Diagnosis Comments PAP SMEAR Routine 04/11/2024 12:00 AM EDT documented in this encounter Results * Pap Smear (04/11/2024 12:00 AM EDT) Swab Cervical swab / Unknown us Jsoe Nurse [facility] LAB CYTOLOGY ORDERABLES Final Result EXTERNAL LAB documented in this encounter Visit Diagnoses Not on filedocumented in this encounter Additional Health Concerns Active Problems Noted Date Diagnosed Date OB Reminders 04/11/2024 documented as of this encounter
--- OUTSIDE RECORDS SUMMARY | 2025-03-07 17:30 | XMS_ITS | Clinical Summary ---
Author Organization [facility] Address [address] [place] [address] Care Team Providers Care Oncology Admin Name Role Phone Unavailable Primary Care Provider Unavailabl e Allergies Active Allergy Reactions Criticality Noted Date Comments Escitalopram Headache 11/28/2021 Medications phenylephrine-D M-APAP (Tylenol Cold Multi-Symptom) 5-10-325 mg/15 mL liquid Take 15 mL by mouth every 4 (four) hours if needed for congestion Active amoxicillin (Amoxil) 875 MG tablet Take 875 mg by mouth in the morning and 875 mg before bedtime. 4 Active cephalexin (Keflex) 500 MG capsule Take 500 mg by mouth in the morning and 500 mg at noon and 500 mg in the evening and 500 mg before bedtime. 5 Active Resolved Problems Problem Noted Date Diagnosed Date Resolved Date Third trimester ([facility]) 08/07/2024 08/10/2024 38 weeks gestation of ([facility]) 08/07/2024 08/10/2024 Family History Medical History Relation Name Comments Diabetes Mother Hypertension Mother Cancer Sister NET Relation Name Status Comments Daughter 1, healthy Mother Sister Son 1 Social History Tobacco Use Types Packs/Day Years Used Date Smoking Tobacco: Never Tobacco Cessation:Counseling Given: Not Answered Comments No Sex and Gender Information Value Date Recorded Sex Assigned at Not on file Legal Sex Female 8:35 PM EDT Gender Identity Not on file Sexual Orientation Not on file Last Filed Vital Signs Vital Sign Reading Time Taken Comments Blood Pressure 132/84 08/28/2024 3:03 PM EST Pulse - - Temperature - - Respiratory Rate - - Oxygen Saturation - - Inhaled Oxygen Concentration - - Weight 119 kg (263 lb) 08/28/2024 3:03 PM EST Height 162.6 cm (5' 4 ) 12/02/2022 12:00 PM EDT Body Mass Index 45.14 12/02/2022 12:00 PM EDT Plan of Treatment Health Maintenance Due Date Last Done Comments Influenza Vaccine (#1) 2025 Goals Goal Patient Goal Type Associated Problems Recent Progress Patient-Stated? Author Reminders Care Plan OB Reminders No Open Scheduling, Background Additional Health Concerns Active Problems Noted Date Diagnosed Date OB Reminders 04/11/2024 Insurance [employer]
== END 2025-03-07 17:28 | disposition home or self-care (01) ==
LOC: US 17:27
PROVIDERS: PCP Nurse Practitioner Family; Visit Provider Emergency Medicine
DX: R60.0 Localized edema (principal)
CPT/HCPCS: 93971